=== PATIENT | female | born 1955 | race Caucasian/White ===

== ENCOUNTER 2019-12-23 10:09 | Emergency (ER) | payer MEDICARE, SELFPAY ==
--- NOTE | ~2019-12-23 | XR_ITS ---
EXAMINATION: XR chest 2V 12/23/2019 10:44 INDICATION: Cough for 10 days PROCEDURE: 2 view chest COMPARISON: No prior studies for comparison. FINDINGS: The lungs are clear. The cardiomediastinal silhouette is enlarged. There are no pleural e ffusions. There is no pneumothorax suspected. There are cholecystectomy clips. IMPRESSION: 1: NO ACUTE CARDIOPULMONARY DISEASE. Reviewed, dictated and finalized at location A.
[2019-12-23 10:16] VITALS: BP 149/64; PULSE 67; RESP 14; TEMP 36.8; O2SAT 98
--- NOTE | 2019-12-23 10:39 | ED.URI ---
HPI - URI/Sore Throat General Chief Complaint: Upper Respiratory Infection Stated Complaint: upper respiratory Time Seen by Provider: 12/23/19 10:24 Source: patient and RN notes reviewed Mode of arrival: ambulatory Limitations: no limitations History of Present Illness HPI Narrative: Patient presents today complaining of a one-week history of dry cough that has been worsening since onset, postnasal drip, intermittent chills, feeling miserable. Denies fever, shortness of breath, sore throat, ear pain, loss of taste or smell. Denies sick contacts or contact with anyone with COVID 19. MD elicited complaint: cough Related Data Home Medications Medication Instructions Recorded Confirmed atenolol 50 mg PO DAILY 03/18/19 12/23/19 esomeprazole magnesium [Nexium] 40 mg PO DAILY 03/18/19 12/23/19 insulin detemir U-100 [Levemir 60 unit SUBCUT HS 03/18/19 12/23/19 U-100 Insulin] insulin lispro [Humalog U-100 25 unit SUBCUT TID 03/18/19 12/23/19 Insulin] metformin 1,000 mg PO BID 03/18/19 12/23/19 paroxetine HCl [Paxil] 40 mg PO QAM 03/18/19 12/23/19 Allergies Allergy/AdvReac Type Severity Reaction Status Date / Time Penicillins Allergy Rash Verified 12/23/19 10:24 Review of Systems Review of Systems: Narrative: CONSTITUTIONAL: Denies body aches, fever, or sweats. +Chills EYES: Denies visual changes, redness, or discharge. ENT: Denies rhinorrhea, congestion, sore throat, or otalgia.+Postnasal drip CARDIOVASCULAR: Denies chest pain, palpitations, or edema. RESPIRATORY: Denies dyspnea. +Dry cough GASTROINTESTINAL: Denies abdominal pain, nausea, vomiting, or diarrhea. GENITOURINARY: Denies dysuria or hematuria. SKIN: Denies rash, itching, or wounds. MUSCULOSKELETAL: Denies back pain, joint pain, or myalgia. NEUROLOGIC: Denies headache, numbness, tingling, or weakness. PSYCH: Denies depression or anxiety. PMFSH Comments At time of signature, I have reviewed and agree with nursing past medical, surgical, social and family history unless otherwise noted. Please see nursing chart for further information. There is no relevant family history pertinent to the presenting complaint Exam Narrative: Exam Narrative: GENERAL: Well-appearing, well-nourished, and in no acute distress. HEAD: Normocephalic, atraumatic. EYES: EOMI. No redness or drainage. Conjunctivae normal. ENT: Mucous membranes pink and moist. Nares Mildly congested. No rhinorrhea. TMs normal bilaterally. Throat normal. Uvula midline. NECK: Normal AROM. Supple. No lymphadenopathy. CHEST: No respiratory distress. Diminished in the bilateral bases, otherwise clear. HEART: Regular rate and rhythm. No murmur appreciated. Normal peripheral pulses. EXTREMITIES: Normal range of motion. No edema. SKIN: Warm, dry, no rash. Capillary refill normal. Normal skin turgor. NEURO: No focal deficits. Alert and oriented x3. Gait steady. PSYCH: Normal affect. No signs of depression or anxiety. Course Vital Signs Vital signs: Vital Signs Temperature 98.3 F 12/23/19 10:16 Pulse Rate 67 12/23/19 10:16 Respiratory Rate 14 12/23/19 10:16 Blood Pressure 149/64 H 12/23/19 10:16 Pulse Oximetry 98 12/23/19 10:16 Temperature 98.3 F 12/23/19 10:16 Pulse Rate 67 12/23/19 10:16 Respiratory Rate 14 12/23/19 10:16 Blood Pressure 149/64 H 12/23/19 10:16 Pulse Oximetry 98 12/23/19 10:16 Reviewed. Pt has been instructed to follow up with her PCP regarding her elevated blood pressure today. MDM - URI/Sore Throat Differential Diagnosis Differential diagnosis: Likely upper respiratory infection, sinusitis, viral infection, bronchitis and other (Pneumonia) Imaging Data Radiologist's impression: ITS Impressions Chest X-Ray 12/23/19 10:46 IMPRESSION: 1: NO ACUTE CARDIOPULMONARY DISEASE. Critical Care Time Critical Care Time Critical Care Time: No Discharge Plan Discharge Clinical Impression: Bronchitis Patient Di
== END 2019-12-23 11:20 | disposition home or self-care (01) ==
PROVIDERS: Emergency Provider Nurse Practitioner
DX: J40 Bronchitis, not specified as acute or chronic (principal); I10 Essential (primary) hypertension; K21.9 Gastro-esophageal reflux disease without esophagitis; E11.9 Type 2 diabetes mellitus without complications; F41.9 Anxiety disorder, unspecified
CPT/HCPCS: 71046; 99213; G0463

== ENCOUNTER 2023-04-23 09:03 | Outpatient (CLI) | payer MEDICARE, SELFPAY ==
[2023-04-23 09:14] LABS: Basophils Absolute Auto 0.1 K/mm3 (0.0-0.1); Basophils Percent Auto 0.8 % (0.2-1.2); Eosinophils Absolute Auto 0.4 K/mm3 (0-0.3); Eosinophils Percent Auto 4.8 % (0-4.4); Hemoglobin 14.6 g/dL (12.0-15.0); Immature Granulocyte Absolute 0.03 K/mm3 (0.00-0.031); Immature Granulocyte Percent A 0.3 % (0-0.5); Lymphocytes Absolute Auto 1.41 K/mm3 (0.9-3.2); Lymphocytes Percent Auto 16.3 % (18.3-44.2); Mean Corpuscular HGB Conc 32.4 g/dl (32-36); Mean Corpuscular Hemoglobin 27.9 pg (26-34); Mean Platelet Volume 10.4 fl (7.4-10.4); Monocytes Absolute Auto 0.6 K/mm3 (0.1-0.6); Monocytes Percent Auto 7.2 % (2.6-8.5); Neutrophils Absolute Auto 6.1 K/mm3 (1.3-6.7); Neutrophils Percent Auto 70.6 % (45.5-73.1); Platelet Count Result 241 k/mm3 (150-375); Red Blood Count 5.23 M/mm3 (4.2-5.4); Red Cell Distribution Width 13.8 % (11.5-14.5); White Blood Count 8.7 K/mm3 (4.5-10.0)
[2023-04-23 11:22] LABS: Alanine Aminotransferase 36 U/L (6-35); Albumin Level 3.9 g/dL (3.5-5.1); Alkaline Phosphatase 78 U/L (38-126); Anion Gap 8 mmol/L (8-16); Aspartate Amino Transferase 44 U/L (14-36); Bilirubin,Total 0.6 mg/dL (0.2-1.3); Blood Urea Nitrogen 10 mg/dL (7-17); Calcium 9.6 mg/dL (8.4-10.2); Carbon Dioxide 30 mmol/L (22-30); Chloride 101 mmol/L (98-107); Estimated Glomerular Filt Rate > 60; Glucose 179 mg/dL (65-110); Sodium 139 mmol/L (137-145)
[2023-04-29 05:48] LABS: CA 15-3 7 U/mL (<32)
== END 2023-04-23 09:04 | disposition home or self-care (01) ==
LOC: ANHLAB 09:05
PROVIDERS: Visit Provider Internal Medicine Hematology & Oncology
DX: C50.911 Malignant neoplasm of unspecified site of right female breast (principal)
CPT/HCPCS: 36415; 80053; 85025; 86300

== ENCOUNTER 2023-08-17 10:21 | Outpatient (CLI) | payer MEDICARE, SELFPAY ==
[2023-08-17 10:38] LABS: Basophils Absolute Auto 0.1 K/mm3 (0.0-0.1); Basophils Percent Auto 0.8 % (0.2-1.2); Eosinophils Absolute Auto 0.4 K/mm3 (0-0.3); Eosinophils Percent Auto 4.1 % (0-4.4); Hematocrit 43.3 % (37.0-47.0); Hemoglobin 14.1 g/dL (12.0-15.0); Immature Granulocyte Absolute 0.03 K/mm3 (0.00-0.031); Immature Granulocyte Percent A 0.3 % (0-0.5); Lymphocytes Absolute Auto 1.55 K/mm3 (0.9-3.2); Lymphocytes Percent Auto 17.9 % (18.3-44.2); Mean Corpuscular HGB Conc 32.6 g/dl (32-36); Mean Corpuscular Hemoglobin 28.7 pg (26-34); Mean Corpuscular Volume 88.2 fl (80-100); Mean Platelet Volume 10.2 fl (7.4-10.4); Monocytes Absolute Auto 0.6 K/mm3 (0.1-0.6); Monocytes Percent Auto 6.9 % (2.6-8.5); Platelet Count Result 216 k/mm3 (150-375); Red Blood Count 4.91 M/mm3 (4.2-5.4); Red Cell Distribution Width 13.5 % (11.5-14.5); White Blood Count 8.6 K/mm3 (4.5-10.0)
[2023-08-17 16:46] LABS: Alanine Aminotransferase 27 U/L (6-35); Alkaline Phosphatase 84 U/L (38-126); Anion Gap 7 mmol/L (4-12); Aspartate Amino Transferase 41 U/L (14-36); Bilirubin,Total 0.6 mg/dL (0.2-1.3); Blood Urea Nitrogen 10 mg/dL (7-17); Calcium 9.3 mg/dL (8.4-10.2); Carbon Dioxide 27 mmol/L (22-30); Chloride 105 mmol/L (98-107); Estimated Glomerular Filt Rate > 60; Glucose 157 mg/dL (65-110); Potassium 4.1 mmol/L (3.4-5.0); Sodium 139 mmol/L (137-145)
[2023-08-18 13:53] LABS: CA 15-3 7 U/mL (<32)
== END 2023-08-17 10:22 | disposition home or self-care (01) ==
LOC: ANHLAB 10:24
PROVIDERS: Visit Provider Internal Medicine Hematology & Oncology
DX: C50.911 Malignant neoplasm of unspecified site of right female breast (principal)
CPT/HCPCS: 36415; 80053; 85025; 86300

== ENCOUNTER 2023-08-31 07:31 | Outpatient (CLI) | payer MEDICARE, SELFPAY ==
--- NOTE | ~2023-08-31 | DEXA_ITS ---
Bone Density Report Name: WILLIAM RUIZ Age: 68 Sex: Female Ethnicity: White Date of : 1955 Indication: postmenopausal; screening for osteoporosis; parental hip fracture; height loss; cancer; hysterectomy; Referring Provider: ADEOLA GALLEGOS Study: Bone densitometry was performed. Exam Date: August 31, 2023 Accession number: [id number] Bone Density: Region BMD T-score Z-score Classification AP Spine(L1-L4) 1.204 1.4 3.5 Normal Femoral Neck (Left) 0.796 -0.5 1.3 Normal Total Hip (Left) 1.008 0.5 2.0 Normal Femoral Neck (Right) 0.835 -0.1 1.7 Normal Total Hip (Right) 1.026 0.7 2.2 Normal Total Hip Mean 1.017 0.6 2.1 Normal World Health Organization criteria for BMD impression classify patients as: Normal (T-score at or above -1.0), Osteopenia (T-score between -1.0 and -2.5), or Osteoporosis (T-score at or below -2.5). 10-year Fracture Risk: FRAX not reported because: All T-scores for Spine Total, Hip Total, Femoral Neck at or above -1.0 Clinical Information Provided by Patient: Parent has had a hip fracture Has used the following medications: Vitamin D Has the following medical conditions: Cancer, Hysterectomy Patient maximum height was 65 Menopause Age: 30 No regular weight bearing exercise Drinks caffeinated beverages Onset of menses at age 10 Number of children 2 Impression: The patient has normal bone mass. The patient has risk factors, including: parental hip fracture. Discussion: BONE DENSITY IS ABOVE THE MINIMUM DESIRABLE LEVEL AT ALL SKELETAL SITES TESTED. This patient?s bone mineral density is above the minimum desirable level (T-score -1.0 or better) at all sites measured. The patient should follow a healthful lifestyle (good nutrition with adequate calcium and vitamin D, and appropriate weight-bearing exercise). Follow-Up: Consider repeating this study in 5 years or sooner if there is some new clinical indication. Reported by: REYNA on 08/31/2023 8:10:00 AM. Reviewed, dictated and finalized at location [facility]
== END 2023-08-31 07:32 | disposition home or self-care (01) ==
LOC: ANHIMG 07:35
PROVIDERS: Visit Provider Internal Medicine Hematology & Oncology
DX: M85.89 Other specified disorders of bone density and structure, multiple sites (principal); Z13.820 Encounter for screening for osteoporosis
CPT/HCPCS: 77080

== ENCOUNTER 2023-12-09 10:02 | Outpatient (CLI) | payer MEDICARE, SELFPAY ==
[2023-12-09 10:20] LABS: Basophils Absolute Auto 0.1 K/mm3 (0.0-0.1); Basophils Percent Auto 0.8 % (0.2-1.2); Eosinophils Absolute Auto 0.4 K/mm3 (0-0.3); Eosinophils Percent Auto 4.8 % (0-4.4); Hematocrit 45.4 % (37.0-47.0); Hemoglobin 14.3 g/dL (12.0-15.0); Immature Granulocyte Absolute 0.03 K/mm3 (0.00-0.031); Immature Granulocyte Percent A 0.4 % (0-0.5); Lymphocytes Absolute Auto 1.95 K/mm3 (0.9-3.2); Lymphocytes Percent Auto 23.5 % (18.3-44.2); Mean Corpuscular HGB Conc 31.5 g/dl (32-36); Mean Corpuscular Volume 88.8 fl (80-100); Mean Platelet Volume 10.8 fl (7.4-10.4); Monocytes Absolute Auto 0.6 K/mm3 (0.1-0.6); Monocytes Percent Auto 7.2 % (2.6-8.5); Neutrophils Absolute Auto 5.2 K/mm3 (1.3-6.7); Neutrophils Percent Auto 63.3 % (45.5-73.1); Platelet Count Result 212 k/mm3 (150-375); Red Blood Count 5.11 M/mm3 (4.2-5.4); Red Cell Distribution Width 13.5 % (11.5-14.5); White Blood Count 8.3 K/mm3 (4.5-10.0)
[2023-12-09 12:50] LABS: Alanine Aminotransferase 31 U/L (6-35); Alkaline Phosphatase 80 U/L (38-126); Anion Gap 7 mmol/L (4-12); Aspartate Amino Transferase 42 U/L (14-36); Bilirubin,Total 0.5 mg/dL (0.2-1.3); Blood Urea Nitrogen 20 mg/dL (7-17); Calcium 8.9 mg/dL (8.4-10.2); Carbon Dioxide 32 mmol/L (22-30); Chloride 98 mmol/L (98-107); Estimated Glomerular Filt Rate 55; Glucose 153 mg/dL (65-110); Potassium 4.5 mmol/L (3.4-5.0); Sodium 137 mmol/L (137-145)
[2023-12-11 06:08] LABS: CA 15-3 6 U/mL (<32)
== END 2023-12-09 10:03 | disposition home or self-care (01) ==
LOC: ANHLAB 10:06
PROVIDERS: Visit Provider Internal Medicine Hematology & Oncology
DX: C50.911 Malignant neoplasm of unspecified site of right female breast (principal)
CPT/HCPCS: 36415; 80053; 85025; 86300

== ENCOUNTER 2024-05-18 09:06 | Outpatient (CLI) | payer MEDICARE, SELFPAY ==
--- OUTSIDE RECORDS SUMMARY | 2024-05-18 09:11 | XMS_ITS | Encounter Summary ---
Author Organization [facility] Address [address] [place] [address] Care Team Providers Care Cellar Worker Name Role Phone Kerwin Quiroga MD Primary Care Provider +1- [phone] Encounter Details Date Type Department Care Team (Late st Contact Info) Description 10/16/2003 Outpatient Historical [facility] INTERNISTS Jeremías Farias MD NO ADDRESS ON FILE Social History Tobacco Use Types Packs/Day Years Used Date Smoking Tobacco: Never Assessed Comments Unknown Sex and Gender Information Value Date Recorded Sex Assigned at Not on file Legal Sex Female 4:29 AM CATTLE DIPPER Gender Identity Not on file Sexual Orientation Not on file documented as of this encounter Plan of Treatment Upcoming Encounters Date Type Department Care Team (Late st Contact Info) Description 05/20/2024 9:30 AM CATTLE DIPPER Office Visit [facility] Internal Medicine Phuong Denzel [address] [place] [address] [place] [address] [facility] [place] [address] 05/24/2024 11:45 AM CATTLE DIPPER Office Visit [facility] Oncology and Hematology - Par[address] [facility] [address] [place] [address] Nelson Cazares MD [address] [facility] [address] [place] [address] 06/07/2024 12:00 PM CDT Appointment [facility] [address] [place] [address] [place] [address] [place] [phone] 06/07/2024 1:05 PM CDT Office Visit [facility] Breast Surgery Jazmin Couch [address] [place] [address] [place] [address] [place] [address] 06/20/2024 8:30 AM CDT Office Visit [facility] Internal Medicine Phuong Denzel [address] [facility] [address] [place] [address] [place] [address] [place] [address] 06/20/2024 11:15 AM CDT Office Visit [facility] Endocrinology [address] [place] [address] Shanice Llamas MD [address] [place] [address] 12/08/2024 11:00 AM CDT Office Visit [facility] Heart and Vascular - [facility] [address] [place] [address] Nam Coto MD [address] [facility] [address] [place] [address] documented as of this encounter Visit Diagnoses Not on filedocumented in this encounter Additional Health Concerns Infection Onset Date Last Indicated Resolved Time R/O COVID-19 12/28/2019 12/28/2019 12/30/2019 5:45 AM CDT COVID-19 12/28/2019 12/28/2019 01/27/2020 1:16 AM CDT documented as of this encounter Care Teams Cellar Worker Relationship Specialty [place] [address] [facility] [address] [place] [address] PCP - General Internal Medicine 02/18/21 documented as of this encounter
--- OUTSIDE RECORDS SUMMARY | 2024-05-18 09:11 | XMS_ITS | Encounter Summary ---
Author Organization [facility] Address [address] [place] [address] Care Team Providers Care Panel Fitter Name Role Phone Kerwin Quiroga MD Primary Care Provider +1- [phone] Encounter Details Date Type Department Care Team (Late st Contact Info) Description 12/13/2003 Outpatient Historical [facility] Boy Kaufman MD [address] [place] [address] ESOPHAGITIS, UNSPECIFIED (Primary Dx) Social History Tobacco Use Types Packs/Day Years Used Date Smoking Tobacco: Never Assessed Comments Unknown Sex and Gender Information Value Date Recorded Sex Assigned at Not on file Legal Sex Female 4:29 AM METAL MACHINE SETTER Gender Identity Not on file Sexual Orientation Not on file documented as of this encounter Plan of Treatment Upcoming Encounters Date Type Department Care Team (Late st Contact Info) Description 05/20/2024 9:30 AM METAL MACHINE SETTER Office Visit [facility] Internal Medicine Phuong Mahoney [address] [facility] [address] [place] [address] [place] [address] [address] [facility] [address] [place] [address] 05/24/2024 11:45 AM METAL MACHINE SETTER Office Visit [facility] Oncology and Hematology - [address] [place] [address] Nelson Cazares MD [address] [facility] [address] [place] [address] 06/07/2024 12:00 PM CDT Appointment [facility] [address] [place] [address] [place] [address] [place] [phone] 06/07/2024 1:05 PM CDT Office Visit [facility] Breast Surgery Jazmin Couch [address] [place] [address] [place] [address] [place] [address] 06/20/2024 8:30 AM CDT Office Visit [facility] Internal Medicine Phuong Mahoney [address] [place] [address] [place] [address] [place] [address] 06/20/2024 11:15 AM CDT Office Visit [facility] Endocrinology [address] [place] [address] Shanice Llamas MD [address] [facility] [address] [place] [address] 12/08/2024 11:00 AM CDT Office Visit [facility] Heart and Vascular - [facility] [address] [place] [address] Nam Coto MD [address] [facility] [address] [place] [address] documented as of this encounter Visit Diagnoses Diagnosis Esophagitis, unspecified- Primary documented in this encounter Additional Health Concerns Infection Onset Date Last Indicated Resolved Time R/O COVID-19 12/28/2019 12/28/2019 12/30/2019 5:45 AM CDT COVID-19 12/28/2019 12/28/2019 01/27/2020 1:16 AM CDT documented as of this encounter Care Teams Panel Fitter Relationship Specialty [place] [address] [facility] [address] [place] [phone] PCP - General Internal Medicine 02/18/21 documented as of this encounter
--- OUTSIDE RECORDS SUMMARY | 2024-05-18 09:11 | XMS_ITS | Encounter Summary ---
Author Organization [facility] Address [address] [place] [address] Care Team Providers Care Automotive Technology Instructor Name Role Phone Kerwin Quiroga MD Primary Care Provider +1- [phone] Reason for Visit * Reason Onset Date Comments Medication Refill 05/06/2024 Encounter Details Date Type Department Care Team (Late st Contact Info) Description 05/06/2024 Refill [facility] Endocrinology [address] [place] [address] Shanice Llamas MD [address] [facility] [address] [place] [address] Social History Tobacco Use Types Packs/Day Years Used Date Smoking Tobacco: Never Passive Smoke Exposure: Never Smokeless Tobacco: Never Alcohol Use Standard Drinks/Week Comments Yes 0 (1 standard drink = 0.6 oz pur e alcohol) 0-1/MONTH Feeling Safe Answer Date Recorded Within the last year, have y ou been afraid of your partner or ex-partner? No 05/28/2023 Emotionally Abused Not on file 05/28/2023 Within the last year, have y ou been kicked, hit, slapped, or otherwise physically hurt by your partner or ex-partner? No 05/28/2023 Sexually Abused Not on file 05/28/2023 Financial Resource Strain Answer Date R ecorded How hard is it for you to pa y for the very basics like food, housing, medical care, and heating? Not hard at all 05/28/2022 Food Insecurity Answer Date Recorded In the past 12 months, have you worried that your food would run out before you had money to buy more? Never true 05/28/2022 In the past 12 months, did y ou run out of food and didn't have money to buy more? Never true 05/28/2022 Transportation Needs Answer Date Record ed In the past 12 months, has l ack of transportation kept you from medical appointments or from getting medications? No 05/28/2022 Lack of Transportation (Non-Medical) Not on file 05/28/2022 Feeling Safe Answer Date Recorded Are you in a relationship wi th someone who hurts you emotionally and/or physically? No 11/10/2022 Comments No Sex and Gender Information Value Date Recorded Sex Assigned at Not on file Legal Sex Female 4:29 AM CONTRACT ASSISTANT Gender Identity Not on file Sexual Orientation Not on file Occupation Industry Job Start Date Job End Date Not on file Not on file Not on file Not on file documented as of this encounter Plan of Treatment Upcoming Encounters Date Type Department Care Team (Late st Contact Info) Description 05/20/2024 9:30 AM CONTRACT ASSISTANT Office Visit [facility] Internal Medicine Phuong Denzel [address] [facility] [address] [place] [address] [place] [address] [address] [facility] [address] [place] [address] 05/24/2024 11:45 AM CONTRACT ASSISTANT Office Visit [facility] Oncology and Hematology - [address] [facility] [address] [place] [address] Nelson Cazares MD [address] [facility] [address] [place] [address] 06/07/2024 12:00 PM CDT Appointment [facility] [address] [place] [address] [place] [address] [place] [address] 06/07/2024 1:05 PM CDT Office Visit [facility] Breast Surgery [place] [address] [place] [address] [place] [address] [place] [address] 06/20/2024 8:30 AM CDT Office Visit [facility] Internal Medicine Phuong Denzel [address] [place] [address] [place] [address] [place] [address] 06/20/2024 11:15 AM CDT Office Visit [facility] Endocrinology [address] [place] [address] Shanice Llamas MD [address] [facility] [address] [address] [address] [place] [address] 12/08/2024 11:00 AM CDT Office Visit [facility] [address] [place] [address] Nam Coto MD [address] [place] [address] documented as of this encounter Visit Diagnoses Not on filedocumented in this encounter Care Teams Automotive Technology Instructor Relationship Specialty Start [place] [address] [place] [address] PCP - General Internal Medicine 02/18/21 documented as of this encounter
--- OUTSIDE RECORDS SUMMARY | 2024-05-18 09:11 | XMS_ITS | Encounter Summary ---
Author Organization [facility] Address [address] [place] [address] Care Team Providers Care Transmission Technician Name Role Phone Kerwin Quiroga MD Primary Care Provider [phone]- [phone] Encounter Details Date Type Department Care Team (Late st Contact Info) Description 08/01/2003 Outpatient Historical [facility] MRI DEPT Jeremías Farias MD NO ADDRESS ON FILE CHRONIC SINUSITIS NOS (Primary Dx) Social History Tobacco Use Types Packs/Day Years Used Date Smoking Tobacco: Never Assessed Comments Unknown Sex and Gender Information Value Date Recorded Sex Assigned at Not on file Legal Sex Female 4:29 AM DIETITIAN CHIEF Gender Identity Not on file Sexual Orientation Not on file documented as of this encounter Plan of Treatment Upcoming Encounters Date Type Department Care Team (Late st Contact Info) Description 05/20/2024 9:30 AM DIETITIAN CHIEF Office Visit [facility] Internal Medicine Phuong Mahoney [address] [place] [address] [place] [address] [facility] [address] [facility] [place] [address] 05/24/2024 11:45 AM DIETITIAN CHIEF Office Visit [facility] Oncology and Hematology - [address] [facility] [address] [place] [address] Nelson Cazares MD [address] [facility] [address] [place] [address] 06/07/2024 12:00 PM CDT Appointment [facility] [address] [place] [address] [place] [address] [place] [id number] 06/07/2024 1:05 PM CDT Office Visit [facility] Breast Surgery Jazmin Couch [address] [place] [address] [place] [address] [place] [address] 06/20/2024 8:30 AM CDT Office Visit [facility] Internal Medicine Phuong Denzel [address] [place] [address] [place] [address] [place] [address] 06/20/2024 11:15 AM CDT Office Visit [facility] Endocrinology [address] [place] [address] Shanice Llamas MD [address] [place] [address] 12/08/2024 11:00 AM CDT Office Visit [facility] [address] [address] [place] [address] Nam Coto MD [address] [place] [address] documented as of this encounter Visit Diagnoses Diagnosis Unspecified sinusitis (chronic)- Primary documented in this encounter Additional Health Concerns Infection Onset Date Last Indicated Resolved Time R/O COVID-19 12/28/2019 12/28/2019 12/30/2019 5:45 AM CDT COVID-19 12/28/2019 12/28/2019 01/27/2020 1:16 AM CDT documented as of this encounter Care Teams Transmission Technician Relationship Specialty [place] [address] [address] [address] [place] [address] PCP - General Internal Medicine 02/18/21 documented as of this encounter
--- OUTSIDE RECORDS SUMMARY | 2024-05-18 09:11 | XMS_ITS | Encounter Summary ---
Author Organization [facility] Address 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 Gender Identity Not on file Sexual Orientation Not on file documented as of this encounter Plan of Treatment Upcoming Encounters Date Type Department Care Team (Late st Contact Info) Description 05/20/2024 9:30 AM 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 Office Visit [facility] Internal Medicine Phuong Mahoney [address] [facility] [facility] [address] [place] [address] [place] [address] [address] [facility] [address] [facility] [place] [address] 05/24/2024 11:45 AM 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 Office Visit [facility] Oncology and Hematology - [address] [place] [address] Nelson Cazares MD [address] [facility] [address] [place] [address] 06/07/2024 12:00 PM CDT Appointment [facility] [address] [place] [address] [place] [address] [place] [phone] 06/07/2024 1:05 PM CDT Office Visit [facility] Breast Surgery Jazmin Couch [address] [place] [address] [place] [address] [place] [address] 06/20/2024 8:30 AM CDT Office Visit [facility] Internal Medicine Phuong Denzel [address] [facility] [address] [place] [address] [place] [address] [place] [address] 06/20/2024 11:15 AM CDT Office Visit [facility] Endocrinology [address] [place] [address] Shanice Llamas MD [address] [facility] [address] [place] [address] 12/08/2024 11:00 AM CDT Office Visit [facility] Heart and Vascular - [facility] [address] [place] [address] Nam Coto MD [address] [facility] [address] [place] [address] documented as of this encounter Visit Diagnoses Diagnosis Cough- Primary documented in this encounter Additional Health Concerns Infection Onset Date Last Indicated Resolved Time R/O COVID-19 12/28/2019 12/28/2019 12/30/2019 5:45 AM CDT COVID-19 12/28/2019 12/28/2019 01/27/2020 1:16 AM CDT documented as of this encounter Care Teams Account Installation Specialist Relationship Specialty [place] [address] [facility] [address] [place] [address] PCP - General Internal Medicine 02/18/21 documented as of this encounter
--- OUTSIDE RECORDS SUMMARY | 2024-05-18 09:11 | XMS_ITS | Clinical Summary ---
Author Organization [facility] Address [address] [place] [address] Phone Care Team Providers Care Restaurant Supervisor Name Role Phone Kerwin Quiroga MD Primary Care Provider [phone] Allergies Active Allergy Reactions Criticality Noted Date Comments Lisinopril Cough Low 05/17/2010 Penicillins Rash Low 09/16/2006 Penicillins Rash Low 06/09/2022 Semaglutide Abdominal Pain,Nausea and Vomiting Low 07/21/2018 Medications lancets (One Touch Delica) 33 gauge 4 times daily. 400 Each 1 05/14/19 18 Active albuterol sulfate 90 mcg/Actuation inhaler INHALE 2 PUFFS PO Q 4-6 H NEEDED FOR SHORTNESS OF BREATH OR WHEEZING 8.5 Gram 3 04/19/19 22 Active minocycline (MINOCIN) 100 mg capsule Take 100 mg by mouth daily. 06/12/19 22 Active cholecalciferol, Vitamin D3, 125 mcg (5,000 unit) Capsule Take 50,000 Units by mouth. Active Insulin Chappells, Disposable, (BD Ultra-Fine Short Pen Needle) 31 gauge x 5/16 Needle USE FOUR TIMES DAILY BEFORE MEALS AND AT BEDTIME 400 Each 3 05/25/19 24 Active esomeprazole (NexIUM) 40 mg Capsule, Delayed Release(E.C.)Annabelle cations:Gastroeso phageal reflux disease without esophagitis take 1 capsule by mouth every day as needed 100 Capsule 2 08/12/19 24 Active baclofen (LIORESAL) 10 mg tabletIndications :Back spasm TAKE 1 TABLET(10 MG) BY MOUTH THREE TIMES DAILY NEEDED FOR PAIN 60 Tablet 08/21/19 24 Active olmesartan (BENICAR) 20 mg tablet take 1 tablet by mouth daily 100 Tablet 3 09/01/19 24 Active simvastatin (ZOCOR) 40 mg tabletIndications :Mixed hyperlipidemia TAKE 1 TABLET(40 MG) BY MOUTH DAILY 100 Tablet 3 09/01/19 24 Active pantoprazole (PROTONIX) 40 mg Tablet, Delayed Release (E.C.)Indications :Gastroesophageal reflux disease without esophagitis Take 1 Tablet (40 mg) by mouth daily. 90 Tablet 3 09/30/19 24 Active montelukast (SINGULAIR) 10 mg tablet TAKE 1 TABLET(10 MG) BY MOUTH DAILY 90 Tablet 3 11/25/19 24 Active metFORMIN (GLUCOPHAGE XR) 500 mg Extended Release 24 hour tablet TAKE 2 TABLETS(1000 MG) BY MOUTH TWICE DAILY WITH MEALS 360 Tablet 1 12/11/19 24 Active insulin lispro (HumaLOG,ADMELOG) 100 unit/mL pen syringe INJECT 11 UNITS UNDER THE SKIN WITH BREAKFAST, 20 UNITS WITH LUNCH, 17 UNITS WITH DINNER, PLUS SLIDING SCALE, MAX 100UNITS PER DAY 90 mL 1 12/16/19 24 Active atenoloL (TENORMIN) 50 mg tablet TAKE 1 TABLET(50 MG) BY MOUTH DAILY 90 Tablet 3 01/11/20 24 Active insulin glargine (Lantus Solostar U-100 Insulin) 100 unit/mL pen syringe 45 units SQ qhs. 45 mL 1 02/10/20 24 Active PARoxetine HCl (PAXIL) 40 mg tablet TAKE 1 TABLET(40 MG) BY MOUTH DAILY 100 Tablet 1 03/07/20 24 Active anastrozole (ARIMIDEX) 1 mg tablet TAKE 1 TABLET(1 MG) BY MOUTH DAILY 90 Tablet 4 03/10/20 24 Active famotidine (PEPCID) 40 mg tablet TAKE 1 TABLET(40 MG) BY MOUTH DAILY AT BEDTIME 90 Tablet 03/11/20 24 Active Trulicity 0.75 mg/0.5 mL injection ADMINISTER 0.75 MG UNDER THE SKIN EVERY 7 DAYS 6 mL 1 04/29/19 25 Active Trulicity 0.75 mg/0.5 mL injection ADMINISTER 0.75 MG UNDER THE SKIN EVERY 7 DAYS 6 mL 1 11/09/19 24 2024 Discontinued Active Problems Patient Care Coordination No te Formatting of this note migh t be different from the original. Hemstitcher - Dr. 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 Grade 2 sprain of medial collateral ligament of knee 07/04/2016 H/O total knee replacement, right 07/04/2016 Rosacea 02/10/2016 Type 2 diabetes mellitus without complication Mixed hyperlipidemia 12/26/2014 Low back pain 11/18/2014 Palpitations 03/01/2013 S/P knee replacement 03/01/2013 Essential hypertension, benign 09/16/2006 Esophageal reflux 09/16/2006 Allergic rhinitis due to pollen 09/16/2006 Resolved Problems Problem Noted Date Diagnosed Date Resolved Date Severe obesity (BMI 35.0-39. 9) with comorbidity 04/11/2015 03/12/2020 Type 2 diabetes, controlled, with renal manifestation 04/11/2015 11/12/2018 CKD (chronic kidney disease) stage 2, GFR 60-89 ml/min 12/27/2014 11/12/2018 Leukocytosis 03/02/2013 06/07/2013 Type II or unspecified type diabetes mellitus without mention of complication, uncontrolled 08/16/2010 03/02/2015 Hyperlipidemia 05/17/2010 12/26/2014 Acute maxillary sinusitis 03/08/2007 Type II or unspecified type diabetes mellitus without mention of complication, not stated as uncontrolled 09/16/2006 08/16/2010 Encounters Date Type Department Care Team Description 05/06/2024 Refill [facility] Endocrinology [address] [place] [address] Shanice Llamas MD 05/02/2024 Telephone [facility] Endocrinology [address] [place] [address] Shanice Llamas MD Needs Form Or Letter Filled Out (Trulicity) 04/29/2024 Refill [facility] Endocrinology [address] [place] [address] Shanice Llamas MD 03/10/2024 [facility] Gastroenterology [facility] [address] [place] [address] Tamy Rasheed PA-C 03/10/2024 [facility] Oncology and Hematology [address] [place] [address] Nelson Cazares MD 03/05/2024 [facility] Internal Medicine [facility] [address] [address] [place] [address] Kerwin Quiroga MD 02/18/2024 2:15 PM PRINTED CIRCUIT BOARD ASSEMBLY REPAIRER Office Visit [facility] Orthopedic Surgery - [address] [place] [address] Fabio Gamez MD Numbness and tingling in left hand (Primary Dx); Carpal tunnel syndrome of left wrist 02/18/2024 1:00 PM PRINTED CIRCUIT BOARD ASSEMBLY REPAIRER Procedure visit [facility] Physical Medicine and Rehabilitation - [place] [id number] [place] [address] [place] [address] Almas Gallegos Jr., MD Left carpal tunnel syndrome (Primary Dx); Numbness and tingling in left hand from Last 3 Months Immunizations Immunization Administration Dates Next Due (ADACEL/BOOSTRIX)(10 YR UP) TDAP VACCINE, 0.5ML, IM 05/17/2010 (AREXVY)(60 YR UP) RSV, DOM MBINANT, PROTEIN SUBUNIT RSVPREF, ADJUVANT RECONSTITUTED, 0.5 ML, PF 01/28/2023 (PFIZER)(12 YR UP) COVID-19 VACCINE - EMERGENCY USE AUTHORIZATION, MRNA, [id number](PF) 30 MCG/0.3 ML IM SUSP 01/28/2021,06/26/2020,05/29/2020 (PNEUMOVAX 23)(50 YRS UP) PN EUMOCOCCAL POLYSACCHARIDE (PPV23) 0.5 ML, IM 04/12/2012,07/17/2011,12/06/2008 (PREVNAR 13)(6 WKS UP) PNEUM OCOCCAL CONJUGATE (PCV13) 0.5 ML, IM 01/21/2018 (SHINGRIX)(50 YRS UP) ZOSTER VACCINE RECOMBINANT, 0.5 ML, IM 06/24/2018,06/24/2018,03/09/2018 INFLUENZA VACCINE HIGH DOSE QUADRIVALENT 65 YR UP PF IM 01/14/2023,01/11/2022,12/07/2019 INFLUENZA VACCINE QUADRIVALE NT 6 MOS UP PF IM 01/14/2018 Influenza Seasonal Unspecifi ed Formulation IM 12/28/2020,11/24/2014,01/11/2010 Influenza Vaccine High Dose 65+ Yrs IM 9 Influenza Vaccine Quad Split 3+ Yrs Im 7 Influenza Vaccine Split 3+ Yrs IM 11/12/2012 Influenza Vaccine Split 3+ Yrs PF IM 05/2015,01/03/2014,01/23/2012,11/19 Family History Medical History Relation Name Comments Hypertension Father Other Father glaucoma Cancer Mother Diabetes Mother Emphysema Mother Heart Disease Mother Heart Failure Mother Hypertension Mother Colon Cancer Paternal Grandfather Asthma Neg Hx Bronchitis Neg Hx Lung Cancer Neg Hx Mesothelioma Neg Hx Relation Name Status Comments Father Alive Mother Paternal Grandfather Social History Tobacco Use Types Packs/Day Years Used Date Smoking Tobacco: Never Passive Smoke Exposure: Never Smokeless Tobacco: Never Tobacco Cessation:Counseling Given: Not Answered Alcohol Use Standard Drinks/Week Comments Yes 0 [...] on file Legal Sex Female 4:29 AM PRINTED CIRCUIT BOARD ASSEMBLY REPAIRER Gender Identity Not on file Sexual Orientation Not on file Occupation Industry Job Start Date Job End Date Not on file Not on file Not on file Not on file Last Filed Vital Signs Vital Sign Reading Time Taken Comments Blood Pressure 120/70 02/18/2024 12:53 PM PRINTED CIRCUIT BOARD ASSEMBLY REPAIRER Pulse 75 12/30/2023 11:29 AM CDT Temperature 36.4 C (97.5 F) 12/30/2023 11:29 AM CDT Respiratory Rate 18 12/30/2023 11:29 AM CDT Oxygen Saturation 96% 12/30/2023 11:29 AM CDT Inhaled Oxygen Concentration - - Weight 92.5 kg (204 lb) 02/18/2024 12:53 PM PRINTED CIRCUIT BOARD ASSEMBLY REPAIRER Height 162.6 cm (5' 4 ) 02/18/2024 12:53 PM PRINTED CIRCUIT BOARD ASSEMBLY REPAIRER Body Mass Index 35.02 02/18/2024 12:53 PM PRINTED CIRCUIT BOARD ASSEMBLY REPAIRER Plan of Treatment Upcoming Encounters Date Type Department Care Team (Late st Contact Info) Description 05/20/2024 9:30 AM PRINTED CIRCUIT BOARD ASSEMBLY REPAIRER Office Visit [facility] Internal Medicine [place] [address] [place] [phone] [place] [address] [place] [phone] 05/24/2024 11:45 AM PRINTED CIRCUIT BOARD ASSEMBLY REPAIRER Office Visit [facility] Oncology and Hematology - [place] [address] [place] [address] Nelson Cazares MD [address] [facility] [address] [facility] [facility] [address] [place] [address] 06/07/2024 12:00 PM CDT Appointment [facility] [place] [address] [place] [phone] [place] [address] [place] [address] 06/07/2024 1:05 PM CDT Office Visit [facility] Breast Surgery [place] [address] [facility] [address] [place] [address] [place] [address] [place] [address] 06/20/2024 8:30 AM CDT Office Visit [facility] Internal Medicine [place] [address] [place] [address] [place] [address] [place] [address] 06/20/2024 11:15 AM CDT Office Visit [facility] Endocrinology [address] [place] [address] Shanice Llamas MD [address] [place] [address] 12/08/2024 11:00 AM CDT Office Visit [facility] Heart and Vascular - [facility] [address] [place] [address] Nam Coto MD [address] [address] [place] [address] Health Maintenance Due Date Last Done Comments FIT-DNA Q 3 years 1998 FIT/FOBT Q 1 year 1998 Flex Sig/CT Colonography Q 5 years 1998 DTAP/TDAP/TD VACCINES (2 - T d or Tdap) 05/17/2020 05/17/2010 PNEUMOCOCCAL VACCINE 65+ YEA RS (3 of 3 - PCV20 or PCV21) 01/21/2023 01/21/2018, 04/12/2012, 07/17/2011, Additional history exists DIABETES ANNUAL RETINAL EXAM 05/09/202312/2022, 01/02/2017, 01/02/2017, Additional history exists DIABETES MICROALBUMIN ANNUAL SCREEN 05/31/2023 05/30/2022, 09/13/2021, 06/20/2020, Additional history exists INFLUENZA VACCINE (#1) 2023 , 01/11/2022, 12/28/2020, Additional history exists COVID-19 Vaccine (2023-2 5 season) 2023 01/28/2021, 06/26/2020, 05/29/2020 BREAST CANCER SCREENING 05/27/2024 05/28/19 24, 09/04/2022, 02/18/2021, Additional history exists DIABETES HBA1C Q 6 MONTHS 06/14/20242023, 06/18/2023, 03/20/2023, Additional history exists LDL CHOLESTEROL ANNUAL 06/17/2024 4, 05/30/2022, 05/28/2021, Additional history exists Traditional Medicare (ACO) A nnual Wellness Visit 06/18/2024 06/18/2023, 05/28/2022, 05/28/2021, Additional history exists DIABETES ANNUAL FOOT EXAM 12/15/20242023, 05/25/2023, 03/20/2023, Additional history exists DIABETES: A1C (Auto Order) 12/15/202412/15, 06/18/2023, 03/20/2023, Additional history exists COLORECTAL SCREENING 12/12/2026 12/12/2021, 12/12/2021, 08/26/2018, Additional history exists Colorectal Cancer Screening 12/12/2026 ZOSTER VACCINE Completed 06/24/2018, 05/29, 03/09/2018 RSV VACCINE (60+ or ) Completed 01/28/2023 OSTEOPOROSIS SCREENING Completed 08/31/2023 Medical Devices Implanted Type Area Farm Advisor Device Identifier Shelf Expiration Date Model / Serial / Lot Cement Tyner G-Hv 40g [id number] - [id number] Implanted:Qty: 1 on 03/01/2013 by Jeb Lamb MD at [facility] Cement Right: Knee [employer] 11/28/2015 [id number] / / [id number] Skin Care Technician Clip Surgiclip Ii Srini 9.75in [id number] - [id number] Implanted:Qty: 1 on 10/31/2022 by Naa Sheffield MD at [facility] Right: Axilla [employer] - [employer]EN 04/29/2027 [id number] / / [id number] Patella 3peg Series A [id number] - [id number] Implanted:Qty: 1 on 03/01/2013 by Jeb Lamb MD at [facility] Knee Right: Knee [employer] 12/27/2017 [id number] / / [id number] Comp Fem Vngrd Cr Intrlk Rt 62.5mm [id number] - [id number] Implanted:Qty: 1 on 03/01/2013 by Jeb Lamb MD at [facility] Knee Right: Knee [employer] 07/27/2022 [id number] / / [id number] Comp Tib Cocr Finned 67mm [id number] - [id number] Implanted:Qty: 1 on 03/01/2013 by Jeb Lamb MD at [facility] Knee Right: Knee [employer] 01/27/2023 [id number] / / [id number] Brng Tib Vngrd Epoly Cr [id number] - [id number] Implanted:Qty: 1 on 03/01/2013 by Jeb Lamb MD at [facility] Knee [employer] 08/27/2017 [id number] / / [id number] Description:EPOLY BEARING IS NOT PART OF TOTAL KNEE CAP PRICING,WILL CHARGED SEPARATELY. Procedures Procedure Name Priority Date/Time Associated Diagnosis Comments HEMOGLOBIN A1C Routine 12/16/2023 11:13 AM CDT Type 2 diabetes mellitus with hyperglycemia, with long-term current use of insulin (CMS/HCC) LIPID PANEL Routine 06/18/2023 10:28 AM CDT Mixed hyperlipidemia MAMMO 3D PING DIAGNOSTIC BILAT W OR WO CAD Routine 05/28/2023 8:49 AM PRINTED CIRCUIT BOARD ASSEMBLY REPAIRER Malignant neoplasm of upper-inner quadrant of right breast in female, estrogen receptor positive ([facility]/HCC) MICROALBUMIN/CREATI NINE RATIO, RANDOM UR Routine 05/30/2022 9:28 AM PRINTED CIRCUIT BOARD ASSEMBLY REPAIRER COLONOSCOPY REPORT 12/12/2021 10 :33 AM CDT DIABETES EYE EXAM Routine 01/02/2017 from Last 3 Months or Most Recently Relevant to Health Maintenance Results * (ABNORMAL) HEMOGLOBIN A1C (12/16/2023 11:13 AM CDT) HEMOGLOBIN A1C 7.5(H) <5.7 % of total Hgb [facility] Comment: For someone without known diabetes, a hemoglobin A1c value of 6.5% or greater indicates that they may have diabetes and this should be confirmed with a follow-up test. For someone with known diabetes, a value <7% indicates that their diabetes is well controlled and a value greater than or equal to 7% indicates suboptimal control. A1c targets should be individualized based on duration of diabetes, age, comorbid conditions, and other considerations. Currently, no consensus exists regarding use of hemoglobin A1c for diagnosis of diabetes for children. ESTIMATED AVERAGE GLUCOSE (MG/DL) 169 mg/dL Node ManagementRebecca Hinojosa ESTIMATED AVERAGE GLUCOSE (MMOL/L) 9.3 mmol/L [facility] HoldingsOmarRebecca froy Hinojosa Comment: This test was performed on the Janet tyrone c503 platform. Effective 06/15/23, a change in test platforms from the Zambrano Service Greeter to the Janet tyrone c503 may have shifted HbA1c results compared to historical results. Based on laboratory validation testing conducted at [facility], the Janet platform relative to the Zambrano platform had an average increase in HbA1c value of < or = 0.3%. This difference is within accepted variability established by the National Glycohemoglobin Standardization Program. Note that not all individuals will have had a shift in their results and direct comparisons between historical and current results for testing conducted on different platforms is not recommended. Test Performed at: [facility] [place] [address] [address] [place] [address] Janisugo Kajal Alaniz Blood 12/16/2023 11:1 3 AM CDT 12/16/2023 11:14 AM CDT us Shanice Llamas MD CHEMISTRY ORDERABLES Final Re sult [facility] [phone] [place] [address] [address] [place] [id number] * (ABNORMAL) LIPID PANEL (06/18/2023 10:28 AM CDT) CHOLESTEROL 159 <200 mg/dL [facility] Alluring LogicRebecca mcduffie Ashish HDL 48(L) > OR = 50 mg/dL [facility] Global HoldingsRebecca Hinojosa TRIGLYCERIDE 118 <150 mg/dL [facility] Global HoldingsRebecca froy Hinojosa LDL CALCULATED 90 mg/dL (calc) Node ManagementRebecca mcduffie Ashish Comment: Reference range: <100 Desirable range <100 mg/dL for primary prevention; <70 mg/dL for patients with CHD or diabetic patients with > or = 2 CHD risk factors. LDL-C is now calculated using the Alfonso calculation, which is a validated novel method providing better accuracy than the Friedewald equation in the estimation of LDL-C. Ruiz PATRICK et al. CESAR. 2013;310(19): 8225-1560 (http://education.Musations/faq/AHY300) CHOL/HDL RATIO 3.3 <5.0 (calc) [facility] HoldingsKierra froy Hinojosa TOTAL NON-HDL CHOL(LDL+VLDL) 111 <130 mg/dL (calc) [facility] HoldingsKierra Hinojosa Comment: For patients with diabetes plus 1 major ASCVD risk factor, treating to a non-HDL-C goal of <100 mg/dL (LDL-C of <70 mg/dL) is considered a therapeutic option. FASTING:YES FASTING: YES Test Performed at: [place] [address] [address] [place] [address] Jj Rdz Vo Blood 06/18/2023 10:2 8 AM CDT 06/18/2023 10:30 AM CDT us Kerwin Quiroga MD CHEMISTRY ORDERABLES Final Result [facility] [phone] [place] [address] [address] [place] [address] * MAMMO DIAG BILAT 3D PING W OR WO CAD (05/28/2023 8:49 AM PRINTED CIRCUIT BOARD ASSEMBLY REPAIRER) Anatomical Region Laterality Modality Breast Bilateral Mammography 05/28/2023 8:49 AM PRINTED CIRCUIT BOARD ASSEMBLY REPAIRER Impressions 05/28/2023 9:18 AM PRINTED CIRCUIT BOARD ASSEMBLY REPAIRER IMPRESSION: 1. No concerning developing abnormality identified. OVERALL FINAL ASSESSMENT: BI-RADS CATEGORY 2 - Benign findings. RECOMMENDATION: 1. Recommend annual mammography. Narrative 05/28/2023 9:18 AM PRINTED CIRCUIT BOARD ASSEMBLY REPAIRER BILATERAL DIAGNOSTIC DIGITAL MAMMOGRAM WITH 3D TOMOSYNTHESIS AND CAD DATE: 05/28/2023 8:49 AM DICTATION LOCATION: [place] HISTORY: Personal history of right-sided breast cancer treated with lumpectomy. Yearly exam. TECHNIQUE: Full field digital diagnostic mammograms of both breasts were obtained with 2D and 3D acquisitions. CAD was utilized. COMPARISON: Comparison made to studies dating back to 01/25/2019. BREAST COMPOSITION: There are scattered areas of fibroglandular density. FINDINGS: Mammographic changes consistent with breast conservation therapy within the right breast. No dominant masses, suspicious calcifications, parenchymal asymmetry or areas of architectural distortion are identified in either breast. The computer aided detection system was utilized. Procedure Note Skyles, Reji K, MD - 05/28/2023 BILATERAL DIAGNOSTIC DIGITAL MAMMOGRAM WITH 3D TOMOSYNTHESIS AND CAD DATE: 05/28/2023 8:49 AM DICTATION LOCATION: [place] HISTORY: Personal history of right-sided breast cancer treated with lumpectomy. Yearly exam. TECHNIQUE: Full field digital diagnostic mammograms of both breasts were obtained with 2D and 3D acquisitions. CAD was utilized. COMPARISON: Comparison made to studies dating back to 01/25/2019. BREAST COMPOSITION: There are scattered areas of fibroglandular density. FINDINGS: Mammographic changes consistent with breast conservation therapy within the right breast. No dominant masses, suspicious calcifications, parenchymal asymmetry or areas of architectural distortion are identified in either breast. The computer aided detection system was utilized. IMPRESSION: 1. No concerning developing abnormality identified. OVERALL FINAL ASSESSMENT: BI-RADS CATEGORY 2 - Benign findings. RECOMMENDATION: 1. Recommend annual mammography. Naa Sheffield MD MAMMO ORDERABLES Final Result * MICROALBUMIN/CREATININE RATIO, RANDOM UR (05/30/2022 9:28 AM PRINTED CIRCUIT BOARD ASSEMBLY REPAIRER) Creatinine, Urine 120 20 - 275 mg/dL [facility] MICROALBUMIN, URINE 0.8 See Note: mg/dL [facility] Comment: Reference Range: Reference Range Not established MICROALBUMIN/CREAT RATIO, UR 7 <30 mcg/mg creat [facility] Comment: The ADA defines abnormalities in albumin excretion as follows: Albuminuria Category Result (mcg/mg creatinine) Normal to Mildly increased <30 Moderately increased 30-299 Severely increased > OR = 300 The ADA recommends that at least two of three specimens collected within a 3-6 month period be abnormal before considering a patient to be within a diagnostic category. FASTING:YES FASTING: YES Test Performed at: [facility] [address] [place] [phone] Jj Alaniz MD 05/30/2022 9:28 AM PRINTED CIRCUIT BOARD ASSEMBLY REPAIRER 05/30/2022 9:29 AM PRINTED CIRCUIT BOARD ASSEMBLY REPAIRER Kerwin Quiroga MD URINE ORDERABLES Final Res ult [facility] [phone] [facility] [id number] [id number] * COLONOSCOPY REPORT (12/12/2021 10:33 AM CDT) Narrative Procedure Note Sourav Villeda MD - 12/12/2021 10:32 AM CDT [facility] Endoscopy Patient Name: Tita Izaguirre Procedure Date: 12/12/2021 Date of : 1955 Attending MD: Sourav Villeda MD, Procedure: Colonoscopy Indications: Surveillance: Personal history of adenomatous polyps on last colonoscopy 3 years ago Providers: Sourav Villeda MD Referring MD: Kerwin Quiroga MD Medicines: General Anesthesia Complications: No immediate complications. Estimated blood loss: Minimal. Procedure: Informed consent was obtained for the procedure, including moderate sedation after risks were discussed. Based on the pre-procedure assessment, including review of the patient's medical history, medications, allergies, and review of systems, the patient was deemed to be an appropriate candidate for sedation. A timeout was performed. Continuous ECG monitoring, pulse oximetry, blood pressure monitoring, and direct observation were performed. The Colonoscope was introduced through the anus and advanced to the cecum, identified by appendiceal orifice and ileocecal valve. The colonoscopy was performed without difficulty. The patient tolerated the procedure well. The quality of the bowel preparation was good. Estimated Blood Loss: Estimated blood loss was minimal. Findings: A 5 mm polyp was found in the hepatic flexure. The polyp was sessile. The polyp was removed with a cold snare. Resection and retrieval were complete. Multiple small and large-mouthed diverticula were found in the sigmoid colon and descending colon. Internal hemorrhoids were found during retroflexion. The hemorrhoids were medium-sized. The exam was otherwise without abnormality. Impression: - One 5 mm polyp at the hepatic flexure, removed with a cold snare. Resected and retrieved. - Diverticulosis in the sigmoid colon and in the descending colon. - Internal hemorrhoids. - The examination was otherwise normal. Recommendation: - Await pathology results. - Repeat colonoscopy in 5 years for surveillance. Sourav Villeda MD 12/12/2021 10:32:25 AM This report has been signed electronically. Number of Addenda: [address]; [place] [address] Sourav Villeda MD GI PROCEDURE ORDERABLES Final R esult * DIABETES EYE EXAM (01/02/2017) us Abstract [facility] Provider HEALTH MAINTENANCE Edited Result - Final [facility] from Last 3 Months or Most Recently Relevant to Health Maintenance Insurance MEDICARE PART A AND B [facility] [address] [facility] RX [employer] RX Member Subscriber Plan / Payer (Ef fective 2022-) Name:Tita Izaguirre Relation to Subscriber:Self Name:Dmitriy Tita Turner Payer ID:Not on file Group ID:[id number] Type:RX Commercial Address: [place] MEDICARE PART A AND B [facility] [address] Advance Directives For more information, please contact: [phone] * Full Code (Latest Code Status on File) Date Activated Date Inactivated Comments 12/12/2021 9:05 AM 12/12/2021 1:34 PM * Full Code Date Activated Date Inactivated Comments 10/21/2019 8:46 AM 10/21/2019 12:36 PM * Full Code Date Activated Date Inactivated Comments 08/26/2018 10:57 AM 08/26/2018 2:18 PM * Full Code Date Activated Date Inactivated Comments 03/01/2013 11:42 AM 03/04/2013 12:59 PM * Full Code Date Activated Date Inactivated Comments 03/01/2013 7:36 AM 03/01/2013 11:42 AM Care Teams Restaurant Supervisor Relationship Specialty [place] [address] [facility] [address] [place] [address] PCP - General Internal Medicine 02/18/21
--- OUTSIDE RECORDS SUMMARY | 2024-05-18 09:11 | XMS_ITS ---
Author Organization [facility] Address [address] [place] [address] Phone Care Team Providers Care Large Sheetfed Press Operator Name Role Phone Kerwin Quiroga MD Primary Care Provider +1- [phone] Active Problems Patient Care Coordination No te Formatting of this note migh t be different from the original. Window Maker - Dr. Jeb Ruiz ([facility]) Problem Noted Date Diagnosed Date Malignant neoplasm of upper- inner quadrant of right breast in female, estrogen receptor positive 10/21/2022 Overview (05/28/2023): Stage: Clinical T1N0; pT2N0 Date of diagnosis: 09/24/2022 Diagnosis: RIGHT 31 mm IDC, 0/2 LN ER(+) [place](+) Her 2(-) Surgeon: Nettie Surgery: 10/31/2022 right [...] 09/16/2006 Allergic rhinitis due to pollen 09/16/2006 Current Treatment and Therapy Plans No current plan information found. Past Treatment and Therapy Plans No past plan information found. Lifetime Dose Tracking * Chemical Lifetime Dose Automatic Entry Manual Entr y Effective Dose 59.12 mSv 59.12 mSv 0 mSv Total DLP 4,789.82 DLP 4,789.82 DLP 0 DLP CTDIvol Max 94.5 mGy 94.5 mGy 0 mGy CTDIvol Min 74.87 mGy 74.87 mGy 0 mGy Resolved Problems Problem Noted Date Diagnosed Date [...]
--- OUTSIDE RECORDS SUMMARY | 2024-05-18 09:11 | XMS_ITS | Referral Summary ---
Author Organization [facility] Address [address] [place] [address] Care Team Providers Care Needle Process Felt Goods Supervisor Name Role Phone Kerwin Quiroga MD Primary Care Provider +1 -[phone] Encounters Date Type Department Care Team Description 04/30/2024 12:30 PM WIND TURBINE INSTALLER Office Visit [facility] [place] [address] [place] [phone] Leidy Villalpando NP Acute non-recurrent pansinusitis (Primary Dx); Body aches; Fever and chills 04/25/2024 11:30 AM WIND TURBINE INSTALLER Office Visit [facility] [place] [address] [place] [address] Tatiana Rowell NP Laryngitis (Primary Dx); Post-nasal drip 03/14/2024 Telephone [facility] [place] [address] [place] [address] Silva Castro MA 03/12/2024 3:18 PM WIND TURBINE INSTALLER - 03/12/2024 11:59 PM WIND TURBINE INSTALLER [place] [address] UTI symptoms Discharge Disposition: Discharge to home or self care 03/12/2024 3:30 PM WIND TURBINE INSTALLER Office Visit [facility] [place] [address] [place] [phone] Mariela Cardona NP UTI symptoms (Primary Dx); Acute bacterial sinusitis from Last 3 Months Allergies Active Allergy Reactions Criticality Noted Date Comments Lisinopril Cough Low 05/17/2010 Penicillins Rash Medium 02/06/2011 Semaglutide Stomach upset Low 07/21/2018 Medications cyclobenzaprine (FLEXERIL) 5 mg tablet Take 1 tablet (5 mg total) by mouth 2 (two) times a day as needed for muscle spasms. 6 tablet 8 Active HYDROcodone-acet aminophen (NORCO) 5-325 mg per tabletIndication s:Pain Take 2 tablets by mouth every 6 (six) hours as needed for pain. Do not exceed 8 tablets/day. 10 tablet 8 Active cholecalciferol (VITAMIN D-3) 5,000 unit capsule Take 10 capsules (50,000 Units total) by mouth Active albuterol HFA (PROVENTIL HFA,VENTOLIN HFA,PROAIR HFA) 90 mcg/actuation inhaler INHALE 2 PUFFS PO Q 4-6 H NEEDED FOR SHORTNESS OF BREATH OR WHEEZING 0 Active aspirin 81 mg enteric coated tablet Take 1 tablet (81 mg total) by mouth daily 1 Active atenoloL (TENORMIN) 50 mg tablet Take 1 tablet (50 mg total) by mouth daily 0 Active baclofen (LIORESAL) 10 mg tablet Take 1 tablet (10 mg total) by mouth 3 (three) times a day as needed 1 Active blood glucose diagnostic strip Checks 4 times daily. 9 Active canagliflozin (INVOKANA) 100 mg tablet Take 1 tablet (100 mg total) by mouth Active esomeprazole DR (NexIUM) 40 mg capsule Take by mouth daily as needed 1 Active fluconazole (DIFLUCAN) 150 mg tablet 1 Active insulin detemir (LEVEMIR) 100 unit/mL (3 mL) pen for injection INJECT 52 UNITS UNDER THE SKIN AT BEDTIME 1 Active insulin lispro (HumaLOG, ADMELOG) 100 unit/mL pen for injection 17 units with breakfast, 26 units with lunch, 23 units with dinner + sliding scale. 80 units daily. Dose change 1 Active lancets 33 gauge misc 4 (four) times a day 8 Active meloxicam (MOBIC) 7.5 mg tablet TAKE 1 TABLET(7.5 MG) BY MOUTH DAILY 0 Active metFORMIN XR (GLUCOPHAGE XR) 500 mg 24 hr tablet TAKE 2 TABLETS(1000 MG) BY MOUTH TWICE DAILY WITH MEALS 1 Active montelukast (SINGULAIR) 10 mg tablet Take by mouth daily 1 Active olmesartan (BENICAR) 20 mg tablet Take 2 tablets (40 mg total) by mouth Active PARoxetine (PAXIL) 20 mg tablet Take 2 tablets (40 mg total) by mouth Active pimecrolimus (ELIDEL) 1 % cream APPLY TOPICALLY TO THE AFFECTED AREA TWICE DAILY 1 Active simvastatin (ZOCOR) 40 mg tablet Take 1 tablet (40 mg total) by mouth daily 1 Active methylPREDNISolo ne (Medrol, Aaron,) 4 mg DosepackIndicati ons:Wasp sting, accidental or unintentional, initial encounter follow package directions 1 packet 3 Active anastrozole (ARIMIDEX) 1 mg tablet Take 1 tablet (1 mg total) by mouth daily 3 Active dulaglutide (TRULICITY) 0.75 mg/0.5 mL pen injector Inject 0.5 mL (0.75 mg total) under the skin once a week 4 Active famotidine (PEPCID) 40 mg tablet Take 1 tablet (40 mg total) by mouth daily 4 Active meclizine (ANTIVERT) 25 mg tablet Take 1 tablet (25 mg total) by mouth 3 (three) times a day as needed 3 Active fluticasone propionate (FLONASE) 50 mcg/actuation nasal sprayIndications :Post-nasal drip Administer 2 sprays into each nostril daily 1 each 5 Active doxycycline (VIBRAMYCIN) 100 mg capsuleIndicatio ns:Acute non-recurrent pansinusitis Take 1 tablet/capsule (100 mg total) by mouth 2 (two) times a day for 10 days 20 tablet/capsu le 5 05/10/19 25 predniSONE (DELTASONE) 10 mg tabletIndication s:Acute non-recurrent pansinusitis Take 1 tablet (10 mg) by mouth daily for 5 days With food early in day 5 tablet 5 05/05/19 25 Active Problems Problem Noted Date Diagnosed Date 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 (CMS/HCC) 11/12/2018 Grade 2 sprain of medial collateral ligament of knee 07/04/2016 Rosacea 02/10/2016 Type 2 diabetes mellitus without complication (C MS/HCC) 03/02/2015 Mixed hyperlipidemia 12/26/2014 Low back pain 11/18/2014 S/P knee replacement 03/01/2013 Palpitations 03/01/2013 Allergic rhinitis due to pollen 09/16/2006 Esophageal reflux 09/16/2006 Essential hypertension, benign 09/16/2006 Social History Tobacco Use Types Packs/Day Years Used Date Smoking Tobacco: Never Smokeless Tobacco: Never Tobacco Cessation:Counseling Given: Not Answered Comments No Sex and Gender Information Value Date Recorded Sex Assigned at Not on file Legal Sex Female 1:48 AM WIND TURBINE INSTALLER Gender Identity Not on file Sexual Orientation Not on file Last Filed Vital Signs Vital Sign Reading Time Taken Comments Blood Pressure 116/62 04/30/2024 12:33 PM WIND TURBINE INSTALLER Pulse 79 04/30/2024 12:33 PM WIND TURBINE INSTALLER Temperature 37 C (98.6 F) 04/30/2024 12:33 PM WIND TURBINE INSTALLER Respiratory Rate 18 04/30/2024 12:33 PM WIND TURBINE INSTALLER Oxygen Saturation 98% 04/30/2024 12:33 PM WIND TURBINE INSTALLER Inhaled Oxygen Concentration - - Weight 92.5 kg (204 lb) 04/30/2024 12:33 PM WIND TURBINE INSTALLER Height 162.6 cm (5' 4 ) 04/30/2024 12:33 PM WIND TURBINE INSTALLER Body Mass Index 35.02 04/30/2024 12:33 PM WIND TURBINE INSTALLER Plan of Treatment Not on file Procedures Procedure Name Priority Date/Time Associated Diagnosis Comments POC INFLUENZA A/B, COVID-19 ANTIGEN Routine 04/30/2024 12:58 PM WIND TURBINE INSTALLER Body aches Fever and chills POCT RAPID STREP Routine 04/30/2024 12:5 8 PM WIND TURBINE INSTALLER Body aches POC INFLUENZA A/B, COVID-19 ANTIGEN Routine 04/25/2024 11:47 AM WIND TURBINE INSTALLER Laryngitis POCT RAPID STREP Routine 04/25/2024 11:3 9 AM WIND TURBINE INSTALLER Laryngitis POCT URINALYSIS DIPSTICK Routine 03/12/2024 3:30 PM WIND TURBINE INSTALLER UTI symptoms URINE CULTURE Routine 03/12/2024 3:18 PM WIND TURBINE INSTALLER UTI symptoms from Last 3 Months Results * POC Influenza A/B, COVID-19 antigen (04/30/2024 12:58 PM WIND TURBINE INSTALLER) Influenza A Ag, POC Negative Negative [facility] Influenza B Ag, POC Negative Negative [facility] COVID-19 Ag POC Presumptive Negative Presumptive Negative, Invalid [facility] Nasal 04/30/2024 12:5 8 PM WIND TURBINE INSTALLER Leidy Villalpando GENERAL PRACTITIONER POINT OF CARE TEST ORDERABLES Final Result Performing Organization Address [facility] de Phone Number [facility] [address] [place] [phone] [place] [address] * POCT rapid strep A (04/30/2024 12:58 PM WIND TURBINE INSTALLER) Pathologist [facility] Rapid Strep A, POC Negative Negative [facility] Swab 04/30/2024 12:5 8 PM WIND TURBINE INSTALLER Leidy Villalpando GENERAL PRACTITIONER POINT OF CARE TEST ORDERABLES Final Result Performing Organization Address [facility] Co de Phone Number [facility] [address] [place] [address], [facility] * POC Influenza A/B, COVID-19 antigen (04/25/2024 11:47 AM WIND TURBINE INSTALLER) Influenza A Ag, POC Negative Negative [facility] Influenza B Ag, POC Negative Negative [facility] COVID-19 Ag POC Presumptive Negative Presumptive Negative, Invalid [facility] Nasal 04/25/2024 11:4 7 AM WIND TURBINE INSTALLER Tatiana Rowell NP POINT OF CARE TEST ORDERABLES Fi nal Result [facility] [address] [place] [address], [facility] * POCT rapid strep A (04/25/2024 11:39 AM WIND TURBINE INSTALLER) Rapid Strep A, POC Negative Negative Swab 04/25/2024 11:3 9 AM WIND TURBINE INSTALLER Tatiana Rowell GENERAL PRACTITIONER POINT OF CARE TEST ORDERABLES Fi nal Result * (ABNORMAL) POCT urinalysis dipstick (03/12/2024 3:30 PM WIND TURBINE INSTALLER) Color, Urine, POC Rosalba Clarity, ur, POC Cloudy(A) Clear Glucose, ur, POC Negative Negative MG/DL Bilirubin, ur, POC Negative Negative, Small, Moderate, Large Ketones, ur, POC Negative Negative Specific Chicken, POC 1.030 1.003 - 1.030 Blood, ur, POC Trace(A) Negative pH, ur, POC 6.5 5.0 - 8.0 Protein, ur, POC Negative Negative Urobilinogen, urine, POC 0.2 0.2 - 1.0 mg/dL Nitrite, ur, POC Negative Negative Leukocytes, ur, POC Trace(A) Negative Lot Number [id number] Urine 03/12/2024 3:30 PM WIND TURBINE INSTALLER Mariela Cardona GENERAL PRACTITIONER POINT OF CARE TEST ORDERABLES Final Result * Urine culture Urine, clean voided (03/12/2024 3:18 PM WIND TURBINE INSTALLER) Report Final Report: Less than 100,000 colonies/mL (clinically insignificant growth based on current clinical standards) Comment:Testing performed by : [facility], [address] [facility]., [address] Organism (CLINICALLY INSIGNIFICANT GROWTH [place] Urine, clean voided 03/12/2024 3:18 PM WIND TURBINE INSTALLER 03/12/2024 8:11 PM WIND TURBINE INSTALLER Yury TODD CH - 03/14/2024 12:19 AM WIND TURBINE INSTALLER Testing performed by [facility] ([phone]) us Mariela Cardona NP LAB MICROBIOLOGY - GENERAL ORD ERABLES Final Result [place] [address] Department [place] [address] from Last 3 Months Insurance MEDICARE [facility] MEDICARE AARP Care Teams Needle Process Felt Goods Supervisor Relationship Specialty [place] [address] [facility] [address] [place] [address] PCP - General Internal Medicine 01/18/21
--- OUTSIDE RECORDS SUMMARY | 2024-05-18 09:11 | XMS_ITS | Encounter Summary ---
Author Organization [facility] Address [address] [place] [address] Care Team Providers Care Electrical Engineer Mep Name Role Phone Kerwin Quiroga MD Primary Care Provider +1- [phone] Encounter Details Date Type Department Care Team (Latest Contact Info) Description 05/22/2004 Outpatient Historical HIS COMMUNITY SURVEYING TECHNICIAN Mayte Walters, [address] [place] [address] Jeremías Farias MD NO ADDRESS ON FILE DIABETES MELLITUS TYPE II-UNCOMPL (CMS/HCC) (Primary Dx) Social History Tobacco Use Types Packs/Day Years Used Date Smoking Tobacco: Never Assessed Comments Unknown Sex and Gender Information Value Date Recorded Sex Assigned at Not on file Legal Sex Female 4:29 AM LABORER CEMENT GUN PLACING Gender Identity Not on file Sexual Orientation Not on file documented as of this encounter Plan of Treatment Upcoming Encounters Date Type Department Care Team (Late st Contact Info) Description 05/20/2024 9:30 AM LABORER CEMENT GUN PLACING Office Visit [facility] Internal Medicine Phuong Mahoney [address] [place] [address] [place] [address] [facility] [address] [facility] [address] 05/24/2024 11:45 AM LABORER CEMENT GUN PLACING Office Visit [facility] Oncology and Hematology - [address] [facility] [address] [place] [address] Nelson Cazares MD [address] [facility] [address] [place] [address] 06/07/2024 12:00 PM CDT Appointment [facility] [address] [place] [address] [place] [address] [place] [address] 06/07/2024 1:05 PM CDT Office Visit [facility] [address] [place] [address] [place] [address] [place] [address] 06/20/2024 8:30 AM CDT Office Visit [facility] Internal Medicine Phuong Mahoney [address] [place] [address] [place] [address] [place] [address] 06/20/2024 11:15 AM CDT Office Visit [facility] Endocrinology [address] [place] [address] Shanice Llamas MD [address] [place] [address] 12/08/2024 11:00 AM CDT Office Visit [facility] Heart and Vascular - [facility] [address] [place] [address] Nam Coto MD [address] [facility] [address] [place] [address] documented as of this encounter Visit Diagnoses Diagnosis Type II or unspecified type diabetes mellitus without mention of complication, not stated as uncontrolled (CMS/HCC)- Primary Type II or unspecified type diabetes mellitus without mention of complication, not stated as uncontrolled documented in this encounter Additional Health Concerns Infection Onset Date Last Indicated Resolved Time R/O COVID-12/28/2019 12/28/2019 12/30/2019 5:45 AM CDT COVID-12/28/2019 12/28/2019 01/27/2020 1:16 AM CDT documented as of this encounter Care Teams Electrical Engineer Mep Relationship Specialty [place] [address] [facility] [address] [place] [phone] PCP - General Internal Medicine 02/18/21 documented as of this encounter
--- OUTSIDE RECORDS SUMMARY | 2024-05-18 09:11 | XMS_ITS | Encounter Summary ---
Author Organization [facility] Address [address] [place] [address] Care Team Providers Care Drawer Hardware Worker Name Role Phone Kerwin Quiroga MD Primary Care Provider +1- [phone] Encounter Details Date Type Department Care Team (Late st Contact Info) Description 02/15/2004 Outpatient Historical [facility] Jeremías Farias MD NO ADDRESS ON FILE Social History Tobacco Use Types Packs/Day Years Used Date Smoking Tobacco: Never Assessed Comments Unknown Sex and Gender Information Value Date Recorded Sex Assigned at Not on file Legal Sex Female 4:29 AM PROTOTYPE ENGINEER Gender Identity Not on file Sexual Orientation Not on file documented as of this encounter Plan of Treatment Upcoming Encounters Date Type Department Care Team (Late st Contact Info) Description 05/20/2024 9:30 AM PROTOTYPE ENGINEER Office Visit [facility] Internal Medicine Phuong Denzel [address] [place] [address] [place] [address] [facility] [place] [phone] 05/24/2024 11:45 AM PROTOTYPE ENGINEER Office Visit [facility] Oncology and Hematology - [address] [facility] [address] [place] [address] Nelson Cazares MD [address] [facility] [address] [place] [address] 06/07/2024 12:00 PM CDT Appointment [facility] [address] [place] [address] [place] [address] [place] [phone] 06/07/2024 1:05 PM CDT [facility] Visit [facility] [address] [place] [address] [place] [address] [place] [address] 06/20/2024 8:30 AM CDT Office Visit [facility] Internal Medicine [address] [facility] [address] [place] [address] [place] [address] [place] [address] 06/20/2024 11:15 AM CDT Office Visit [facility] Endocrinology [address] [place] [address] Shanice Llamas MD [address] [place] [address] 12/08/2024 11:00 AM CDT Office Visit [facility] Heart and Vascular - [facility] [address] [place] [address] Nam Coto MD [address] [facility] [address] [place] [address] documented as of this encounter Visit Diagnoses Not on filedocumented in this encounter Additional Health Concerns Infection Onset Date Last Indicated Resolved Time R/O COVID-19 12/28/2019 12/28/2019 12/30/2019 5:45 AM CDT COVID-19 12/28/2019 12/28/2019 01/27/2020 1:16 AM CDT documented as of this encounter Care Teams Drawer Hardware Worker Relationship Specialty [place] [address] [facility] [address] [place] [address] PCP - General Internal Medicine 02/18/21 documented as of this encounter
--- OUTSIDE RECORDS SUMMARY | 2024-05-18 09:11 | XMS_ITS | Encounter Summary ---
Author Organization [facility] Address [address] Ramosn: Epic Prelude ADT [place] [address] Care Team Providers Care Lithostripper Name Role Phone Kerwin Quiroga MD Primary Care Provider +1- [phone] Encounter Details Date Type Department Care Team (Latest Contact Info) Description 03/08/2007 Orders Only Yasemin Davis MD Social History Tobacco Use Types Packs/Day Years Used Date Smoking Tobacco: Never Assessed Comments Unknown Sex and Gender Information Value Date Recorded Sex Assigned at Not on file Legal Sex Female 4:29 AM SERVICE DELIVERY DIRECTOR Gender Identity Not on file Sexual Orientation Not on file documented as of this encounter Progress Notes * Interface, Emiliano Stl Conv Transcriptions - 08/12/2007 10:41 AM CDT TIME:09:47 am PATIENT`S HOME PHONE: PATIENT`S WORK PHONE: PATIENT`S INSURANCE: [facility] WHO TOOK THE CALL: Katina Marie J GENERAL INFORMATION PATIENT STATUS: Established Patient. LAST VISIT: PCP: joslyn. ALTERNATIVE PHONE NUMBER: [phone] WHO CALLED: Patient called. PHARMACY NUMBER: [phone] PROBLEMS: Pt is calling in with head congestion, cough that is not productive, green nasal drainage, and low grade fever.She states that this has been going on for about 5 day. she has been using tylenol sinus with little relief. She would like something called in. SECTION 1: DOCTOR`S RESPONSE: [email or web address] 03/08/07 at 09:58 am can she come in to see me? SECTION 2: FINAL ACTION: [email or web address] 03/08/07 at 10:26 am Spoke with patient 03/08/07 at 10:26 am. appt schd Electronically Signed by: Princess Arias on Thursday, March 08, 2007 * Emiliano Alvarenga Conv Transcriptions - 08/12/2007 10:36 AM CDT WEIGHT: 195lbs BLOOD PRESSURE: 110/66 Right Arm Sitting TEMPERATURE: 97.5??f Tympanic PULSE: 82 Right Radial, Regular RESPIRATIONS: 20 HEIGHT: 63 3/4in NURSE NAME: Ramya Bustillos S ALLERGIES: Allergies are as listed. MEDICATIONS: Medication list current. CHIEF COMPLAINT congestion,cough & fever.lj HISTORY: HISTORY OF PRESENT ILLNESS: UPPER RESPIRATORY: Onset is gradual. The upper respiratory symptoms began approximately 4 days ago,to 5 days ago. Symptoms include sinus congestion, symptoms include runny nose, has symptoms of cough, nonproductive cough, symptoms include headache, symptoms of sore throat, no symptoms of allergies, no symptoms of chest congestion, no symptoms of chest pain, has symptoms of chills, symptoms include fever, felt warm, low grade fever, has no symptoms of diarrhea, bilateral earache, symptoms include nausea, symptoms include nasal congestion, symptoms include nasal discharge, symptoms include post nasal drainage, symptoms include loss of appetite. The symptoms have been worsening. Therapies tried include cold medicine. CURRENT MEDICATION LIST: NEXIUM ORAL CAPSULE DELAYED RELEASE 40 MG, 1 Two Times A Day ESTRATEST ORAL TABLET 1.25-2.5 MG, 1 Every Day METFORMIN HCL ORAL TABLET 1000 MG, 1 Two Times A Day GLIMEPIRIDE ORAL TABLET 2 MG, 2 Every Day SULFAMETHOXAZOLE-TRIMETHOPRIM ORAL TABLET 800-160 MG, 1 Every Day ASTELIN NASAL SOLUTION 137 MCG/SPRAY, BYETTA 10 MCG PEN SUBCUTANEOUS SOLUTION 10 MCG/0.04ML, as directed PAROXETINE HCL ORAL TABLET 20 MG, 1 Every Day SIMVASTATIN ORAL TABLET 40 MG, 1 Every Day LISINOPRIL ORAL TABLET 20 MG, 1 Every Day At Bedtime RHINOCORT AQUA NASAL SUSPENSION 32 MCG/ACT, 2 sprays in each nostril once daily. CURRENT ALLERGY LIST: PCN ROS: GENERAL: HAS CHILLS, HAS A LOW GRADE FEVER, DECREASED ENERGY LEVEL. ENT: See HISTORY OF PRESENT ILLNESS. CARDIAC: No chest pain, palpitations, orthopnea, dyspnea on exertion, or paroxysmal nocturnal dyspnea. RESPIRATORY: HAS A COUGH. : No frequency, urgency, hematuria or dysuria. GI: No abdominal pain, nausea, vomiting, diarrhea, constipation, melena, or hematochezia. MUSCULOSKELETAL: No muscle or joint pain, weakness, swelling or inflammation. No restriction of motion, no atrophy or backache. PAST MEDICAL HISTORY: MEDICAL: Diabetes, hypercholesterolemia, hypertension, gastroesophageal reflux. SOCIAL HISTORY: TOBACCO USE: Has no significant smoking history. PHYSICAL EXAMINATION: CONSTITUTIONAL: GENERAL APPEARANCE: In no acute distress. EARS, NOSE, MOUTH AND THROAT: EXTERNAL/EARS AND NOSE: Overall appearance normal with no scars, lesions or masses. EARS: BULGING TYMPANIC MEMBRANES NOTED BILATERALLY, external auditory canal normal bilaterally. NOSE (AND SINUS): TURBINATES INFLAMED BILATERALLY, MAXILLARY SINUSES ARE TENDER BILATERALLY. ORAL: Inspection of the gums, lips, palate, and teeth are normal, COBBLE STONING NOTED ON THE POSTERIOR PHARYNX. NECK/THYROID: Trachea midline. No thyroid enlargement, tenderness, or mass. No supraclavicular or cervical adenopathy. RESPIRATORY: Clear to auscultation and percussion. Normal respiratory effort. CARDIOVASCULAR: CARDIAC: Regular rhythm. No murmurs, rubs, or gallops. EDEMA/VARICOSITIES OF EXTREMITIES: No edema or varicosities. GASTROINTESTINAL: ABDOMEN: Soft, non-tender, without masses. Bowel sounds active. MUSCULOSKELETAL EXAM: GAIT/STATION: Normal gait. ASSESSMENT/PLAN: 461.0-ACUTE SINUSITIS ASSESSMENT: worsening. Given her history of diabetes, I would like to start treatment with a courseof antibiotics. She is to call if there is no improvement. MEDICATIONS: ZITHROMAX Z-KYLE ORAL TABLET 250 MG, 2 tabs first day, then 1 tab daily, 1 Dispensed, status: NEW PRESCRIPTION, 03/08/2007. RETURN VISIT : Instructed to call if not improving. Electronically Signed by: Yasemin Lacy MD on Thursday, March 08, 2007 documented in this encounter Plan of Treatment Upcoming Encounters Date Type Department Care Team (Late st Contact Info) Description 05/20/2024 9:30 AM SERVICE DELIVERY DIRECTOR Office Visit [facility] Internal Medicine Phuong [place]oney [address] [place] [phone] [place] [address] [place] [address] 05/24/2024 11:45 AM SERVICE DELIVERY DIRECTOR Office Visit [facility] Oncology and Hematology - [place] [address] [place] [address] Nelson Cazares MD [address] [facility] [address] [place] [address] 06/07/2024 12:00 PM CDT Appointment [facility] [address] [place] [address] [place] [address] [place] [address] 06/07/2024 1:05 PM CDT Office Visit [facility] Breast Surgery [facility] [address] [facility] [address] [place] [address] [place] [address] [place] [address] 06/20/2024 8:30 AM CDT Office Visit [facility] Internal Medicine [place] [address] [place] [phone] [place] [address] [place] [phone] 06/20/2024 11:15 AM CDT Office Visit [facility] Endocrinology [address] [place] [address] Shanice Llamas MD [address] [place] [address] 12/08/2024 11:00 AM CDT Office Visit [facility] Heart and Vascular - [facility] [address] [place] [address] Nam Coto MD [address] [place] [address] documented as of this encounter Visit Diagnoses Not on filedocumented in this encounter Additional Health Concerns Infection Onset Date Last Indicated Resolved Time R/O COVID-19 12/28/2019 12/28/2019 12/30/2019 5:45 AM CDT COVID-19 12/28/2019 12/28/2019 01/27/2020 1:16 AM CDT documented as of this encounter Care Teams Lithostripper Relationship Specialty [place] [address] [facility] [address] [place] [address] PCP - General Internal Medicine 02/18/21 documented as of this encounter
--- OUTSIDE RECORDS SUMMARY | 2024-05-18 09:11 | XMS_ITS | Encounter Summary ---
Author Organization [facility] Address [address] Ramosn: Epic Prelude ADT [place] [address] Care Team Providers Care Dewaxer Name Role Phone Kerwin Quiroga MD Primary Care Provider +1- [phone] Encounter Details Date Type Department Care Team (Latest Contact Info) Description 03/17/2007 Orders Only Yasemin Davis MD Social History Tobacco Use Types Packs/Day Years Used Date Smoking Tobacco: Never Assessed Comments Unknown Sex and Gender Information Value Date Recorded Sex Assigned at Not on file Legal Sex Female 4:29 AM CHEMICAL EQUIPMENT REPAIRER Gender Identity Not on file Sexual Orientation Not on file documented as of this encounter Progress Notes * Interface, Emiliano Stl Conv Transcriptions - 08/12/2007 12:32 PM CDT TIME:09:27 am PATIENT`S HOME PHONE: PATIENT`S WORK PHONE: PATIENT`S INSURANCE: [facility] WHO TOOK THE CALL: Katina Marie J GENERAL INFORMATION PATIENT STATUS: Established Patient. PCP: joslyn. ALTERNATIVE PHONE NUMBER: [phone] WHO CALLED: Patient called. PHARMACY NUMBER: [phone] PROBLEMS: Pt is calling in stating she is still having head congestion, sore throat, green mucus, and headaches. she states that you told her that is she did not improve to call back and you would call something in for her. She states that the z-orly did not really work. She would like something else called in. SECTION 1: DOCTOR`S RESPONSE: mino 03/17/07 at 09:33 am MEDICATIONS: Call in to Pharmacy LEVAQUIN ORAL TABLET 500 MG, 1 Every Day, 7 Dispensed, status: NEW PRESCRIPTION, 03/17/2007. FINAL ACTION: ignacio 03/17/07 at 11:14 am Spoke with patient 03/17/07 at 11:18 am. informed her that rx called in Called pharmacy at 03/17/07 at 11:14 am. called in rx Electronically Signed by: Ramya Bustillos on Saturday, March 17, 2007 documented in this encounter Plan of Treatment Upcoming Encounters Date Type Department Care Team (Late st Contact Info) Description 05/20/2024 9:30 AM CHEMICAL EQUIPMENT REPAIRER Office Visit [facility] Internal Medicine [place] [address] [facility] [address] [place] [address] [place] [address] [facility] [address] [place] [address] 05/24/2024 11:45 AM CHEMICAL EQUIPMENT REPAIRER Office Visit [facility] Oncology and Hematology - [place]as [address] [facility] [address] [place] [address] Nelson Cazarse MD [address] [facility] [address] [place] [address] 06/07/2024 12:00 PM CDT Appointment [facility] [address] [place] [address] [place] [address] [place] [address] 06/07/2024 1:05 PM CDT Office Visit [facility] Breast Surgery [place] [facility] [address] [place] [address] [place] [address] [place] [address] 06/20/2024 8:30 AM CDT Office Visit [facility] Internal Medicine Phuong [place]oney [address] [facility] [address] [place] [address] [place] [address] [facility] [address] [place] [address] 06/20/2024 11:15 AM CDT Office Visit [facility] Endocrinology [address] [place] [address] Shanice Llamas MD [address] [place] [address] 12/08/2024 11:00 AM CDT Office Visit [facility] Heart and Vascular - [facility] [address] [place] [address] Nam Coto MD [address] [facility] [address] [place] [address] documented as of this encounter Visit Diagnoses Not on filedocumented in this encounter Additional Health Concerns Infection Onset Date Last Indicated Resolved Time R/O COVID-19 12/28/2019 12/28/2019 12/30/2019 5:45 AM CDT COVID-19 12/28/2019 12/28/2019 01/27/2020 1:16 AM CDT documented as of this encounter Care Teams Dewaxer Relationship Specialty [place] [address] [address] [facility] [address] [place] [address] PCP - General Internal Medicine 02/18/21 documented as of this encounter
--- OUTSIDE RECORDS SUMMARY | 2024-05-18 09:11 | XMS_ITS | Encounter Summary ---
Author Organization [facility] Address [address] [place] [address] Care Team Providers Care Targeting Acquisition Officer Name Role Phone Kerwin Quiroga MD Primary Care Provider +1- [phone] Encounter Details Date Type Department Care Team (Late st Contact Info) Description 02/21/2004 Outpatient Historical [facility] Boy Kaufman MD [address] [place] [address] BENIGN NEOPLASM LG BOWEL (Primary Dx) Social History Tobacco Use Types Packs/Day Years Used Date Smoking Tobacco: Never Assessed Comments Unknown Sex and Gender Information Value Date Recorded Sex Assigned at Not on file Legal Sex Female 4:29 AM SAFETY DIRECTOR Gender Identity Not on file Sexual Orientation Not on file documented as of this encounter Plan of Treatment Upcoming Encounters Date Type Department Care Team (Late st Contact Info) Description 05/20/2024 9:30 AM SAFETY DIRECTOR Office Visit [facility] Internal Medicine [place]oney [address] [facility] [address] [place] [address] [place] [address] [address] [facility] [address] [place] [address] 05/24/2024 11:45 AM SAFETY DIRECTOR Office Visit [facility] Oncology and Hematology - [place] [address] [facility] [address] [place] [address] Nelson Cazares MD [address] [facility] [address] [place] [address] 06/07/2024 12:00 PM CDT Appointment [facility] [address] [place] [address] [place] [address] [place] [phone] 06/07/2024 1:05 PM CDT Office Visit [facility] Breast Surgery [place] [address] [place] [address] [place] [address] [place] [address] 06/20/2024 8:30 AM CDT Office Visit [facility] Internal Medicine [place] [address] [place] [address] [place] [address] [place] [address] 06/20/2024 11:15 AM CDT Office Visit [facility] Endocrinology [address] [facility] [place] [address] Shanice Llamas MD [address] [facility] [address] [place] [address] 12/08/2024 11:00 AM CDT Office Visit [facility] Heart and Vascular - [facility] [address] [place] [address] Nam Coto MD [address] [facility] [address] [place] [address] documented as of this encounter Visit Diagnoses Diagnosis Benign neoplasm of colon- Primary documented in this encounter Additional Health Concerns Infection Onset Date Last Indicated Resolved Time R/O COVID-19 12/28/2019 12/28/2019 12/30/2019 5:45 AM CDT COVID-19 12/28/2019 12/28/2019 01/27/2020 1:16 AM CDT documented as of this encounter Care Teams Targeting Acquisition Officer Relationship Specialty [place] [address] [facility] [address] [place] [phone] PCP - General Internal Medicine 02/18/21 documented as of this encounter
--- OUTSIDE RECORDS SUMMARY | 2024-05-18 09:11 | XMS_ITS | Encounter Summary ---
Author Organization [facility] Address [address] [place] [address] Care Team Providers Care Poultry Buyer Name Role Phone Kerwin Quiroga MD Primary Care Provider +1- [phone] Encounter Details Date Type Department Care Team (Late st Contact Info) Description 03/08/2007 Outpatient Historical [facility] Internal Medicine Ph[place] [address] [place] [address] Saturnino ms, MD Yasemin Social History Tobacco Use Types Packs/Day Years Used Date Smoking Tobacco: Never Assessed Comments Unknown Sex and Gender Information Value Date Recorded Sex Assigned at Not on file Legal Sex Female 4:29 AM RESEARCH AND DEVELOPMENT RESEARCHER Gender Identity Not on file Sexual Orientation Not on file documented as of this encounter Plan of Treatment Upcoming Encounters Date Type Department Care Team (Late st Contact Info) Description 05/20/2024 9:30 AM RESEARCH AND DEVELOPMENT RESEARCHER Office Visit [facility] Internal Medicine [place] [address] [place] [address] [place] [address] [place] [address] 05/24/2024 11:45 AM RESEARCH AND DEVELOPMENT RESEARCHER Office Visit [facility] Oncology and Hematology - [place] [address] [place] [address] Nelson Cazares MD [address] [facility] [address] [place] [address] 06/07/2024 12:00 PM CDT Appointment [facility] [place] [address] [place] [address] [place] [address] [place] [address] 06/07/2024 1:05 PM CDT Office Visit [facility] Breast Surgery [place] [address] [place] [address] [place] [address] [place] [address] 06/20/2024 8:30 AM CDT Office Visit [facility] Internal Medicine [address] [place] [address] [place] [address] [place] [address] 06/20/2024 11:15 AM CDT Office Visit [facility] Endocrinology [address] [place] [address] Shanice Llamas MD [address] [place] [address] 12/08/2024 11:00 AM CDT Office Visit [facility] [address] [place] [address] Nam Coto MD [address] [facility] [address] [place] [address] documented as of this encounter Visit Diagnoses Not on filedocumented in this encounter Additional Health Concerns Infection Onset Date Last Indicated Resolved Time R/O COVID-19 12/28/2019 12/28/2019 12/30/2019 5:45 AM CDT COVID-19 12/28/2019 12/28/2019 01/27/2020 1:16 AM CDT documented as of this encounter Care Teams Poultry Buyer Relationship Specialty [place] [address] [facility] [address] [place] [address] PCP - General Internal Medicine 02/18/21 documented as of this encounter
--- OUTSIDE RECORDS SUMMARY | 2024-05-18 09:11 | XMS_ITS | Clinical Summary ---
Author Organization [facility] Address [address] [place] [address] Care Team Providers Care Pattern Chain Maker Supervisor Name Role Phone Kerwin Quiroga MD Primary Care Provider +1 -[phone] Allergies Active Allergy Reactions Criticality Noted Date [...] Esophageal reflux 09/16/2006 Essential hypertension, benign 09/16/2006 Encounters Date Type Department Care Team Description 04/30/2024 12:30 PM FIELD SALES REPRESENTATIVE Office Visit [facility] at [address] [place] [address] Leidy Villalpando NP Acute non-recurrent pansinusitis (Primary Dx); Body aches; Fever and chills 04/25/2024 11:30 AM FIELD SALES REPRESENTATIVE Office Visit [facility] at [address] [place] [address] Tatiana Rowell NP Laryngitis (Primary Dx); Post-nasal drip 03/14/2024 Telephone [facility] at [address] [place] [address] Silva Castro MA 03/12/2024 3:30 PM FIELD SALES REPRESENTATIVE Office Visit [facility] at [address] [place] [address] Mariela Cardona NP UTI symptoms (Primary Dx); Acute bacterial sinusitis 03/12/2024 3:18 PM FIELD SALES REPRESENTATIVE - 03/12/2024 11:59 PM FIELD SALES REPRESENTATIVE Hospital Encounter [place] [id number] UTI symptoms Discharge Disposition: Discharge to home or self care from Last 3 Months Surgical History Surgery Date Site/Laterality Comments KNEE SURGERY JOINT REPLACEMENT CHOLECYSTECTOMY HYSTERECTOMY BREAST BIOPSY 09/24/2022 Right BREAST LUMPECTOMY 09/27/2022 - 10/27/2022 Right Medical History Medical History Date Comments Hypertension Hypercholesteremia Diabetes mellitus (HCC) Gastric reflux Breast cancer (HCC) Family History Medical History Relation Name Comments Cancer Other Clotting disorder Other Diabetes Other Heart disease Other Hypertension Other Relation Name Status Comments Other Social History Tobacco Use Types Packs/Day Years Used Date Smoking Tobacco: Never Smokeless Tobacco: Never Tobacco Cessation:Counseling Given: Not Answered Comments No Sex and Gender Information Value Date Recorded Sex Assigned at Not on file Legal Sex Female 1:48 AM FIELD SALES REPRESENTATIVE Gender Identity Not on file Sexual Orientation Not on file Obstetrics History Last Filed Vital Signs Vital Sign Reading Time Taken Comments Blood Pressure 116/62 04/30/2024 12:33 PM FIELD SALES REPRESENTATIVE Pulse 79 04/30/2024 12:33 PM FIELD SALES REPRESENTATIVE Temperature 37 C (98.6 F) 04/30/2024 12:33 PM FIELD SALES REPRESENTATIVE Respiratory Rate 18 04/30/2024 12:33 PM FIELD SALES REPRESENTATIVE Oxygen Saturation 98% 04/30/2024 12:33 PM FIELD SALES REPRESENTATIVE Inhaled Oxygen Concentration - - Weight 92.5 kg (204 lb) 04/30/2024 12:33 PM FIELD SALES REPRESENTATIVE Height 162.6 cm (5' 4 ) 04/30/2024 12:33 PM FIELD SALES REPRESENTATIVE Body Mass Index 35.02 04/30/2024 12:33 PM FIELD SALES REPRESENTATIVE Plan of Treatment Health Maintenance Due Date Last Done Comments Albumin Creatinine Ratio, Urine 1953 Colon Cancer Screening-Colonoscopy 1953 Depression Screening 1953 Fall Risk Assessment 1953 Hemoglobin A1C 1953 Hepatitis C Screening 1953 Osteoporosis Screening-Bone Density Scan 1953 eGFR 1953 Dilated Eye Exam 1953 Foot Exam 1953 Lipid Panel 1953 Hepatitis B Screening 08/15/1971 Breast Cancer Screening-Mammogram 11/11/2014 014 Well Visit 65+ 2018 DTaP/Tdap/Td Vaccine (2 - Td or Tdap) 05/17/2020 05/17/2010 Pneumococcal vaccine 65+ (4 of 4 - PCV20 or PCV21) 01/21/2023 01/21/2018, 04/12/2012, 07/17/2011, Additional history exists Covid-19 Vaccine (5 - 2023-2 5 season) 2023 01/28/2021, 01/04/2021, 06/26/2020, Additional history exists Influenza Vaccine (#1) 2023 , 12/28/2020, 12/23/2018, Additional history exists Zoster Vaccine Completed 06/24/2018, 03/13/2018 Procedures Procedure Name Priority Date/Time Associated Diagnosis Comments POC INFLUENZA A/B, COVID-19 ANTIGEN Routine 04/30/2024 12:58 PM FIELD SALES REPRESENTATIVE Body aches Fever and chills POCT RAPID STREP Routine 04/30/2024 12:5 8 PM FIELD SALES REPRESENTATIVE Body aches POC INFLUENZA A/B, COVID-19 ANTIGEN Routine 04/25/2024 11:47 AM FIELD SALES REPRESENTATIVE Laryngitis POCT RAPID STREP Routine 04/25/2024 11:3 9 AM FIELD SALES REPRESENTATIVE Laryngitis POCT URINALYSIS DIPSTICK Routine 03/12/2024 3:30 PM FIELD SALES REPRESENTATIVE UTI symptoms URINE CULTURE Routine 03/12/2024 3:18 PM FIELD SALES REPRESENTATIVE UTI symptoms from Last 3 Months Results * POC Influenza A/B, COVID-19 antigen (04/30/2024 12:58 PM FIELD SALES REPRESENTATIVE) Pathologist [facility] Influenza A Ag, POC Negative Negative [facility] Influenza B Ag, POC Negative Negative [facility] COVID-19 Ag POC Presumptive Negative Presumptive Negative, Invalid [facility] Nasal 04/30/2024 12:5 8 PM FIELD SALES REPRESENTATIVE Leidy Villalpando DISTILLERY MILLER POINT OF CARE TEST ORDERABLES Final Result Performing Organization Address City/[facility]/ZIP Co de Phone Number [facility] [address] [place] [address] [place] [address] * POCT rapid strep A (04/30/2024 12:58 PM FIELD SALES REPRESENTATIVE) [facility] Rapid Strep A, POC Negative Negative [facility] Swab 04/30/2024 12:5 8 PM FIELD SALES REPRESENTATIVE Leidy Villalpando DISTILLERY MILLER POINT OF CARE TEST ORDERABLES Final Result Performing Organization Address [facility] Co de Phone Number [facility] [address] [place] [address] [place] [address] * POC Influenza A/B, COVID-19 antigen (04/25/2024 11:47 AM FIELD SALES REPRESENTATIVE) [facility] Influenza A Ag, POC Negative Negative [facility] Influenza B Ag, POC Negative Negative [facility] COVID-19 Ag POC Presumptive Negative Presumptive Negative, Invalid [facility] Nasal 04/25/2024 11:4 7 AM FIELD SALES REPRESENTATIVE Tatiana Rowell DISTILLERY MILLER POINT OF CARE TEST ORDERABLES Fi nal Result Performing Organization Address [facility] Co de Phone Number [facility] [address] [place] [address] [place] [address] * POCT rapid strep A (04/25/2024 11:39 AM FIELD SALES REPRESENTATIVE) Rapid Strep A, POC Negative Negative Swab 04/25/2024 11:3 9 AM FIELD SALES REPRESENTATIVE Result [facility] Tatiana Rowell NP POINT OF CARE TEST ORDERABLES Fi nal Result * (ABNORMAL) POCT urinalysis dipstick (03/12/2024 3:30 PM FIELD SALES REPRESENTATIVE) Color, Urine, POC Rosalba Clarity, ur, POC Cloudy(A) Clear Glucose, ur, POC Negative Negative MG/DL Bilirubin, ur, POC Negative Negative, Small, Moderate, Large Ketones, ur, POC Negative Negative Specific [place], POC 1.030 1.003 - 1.030 Blood, ur, POC Trace(A) Negative pH, ur, POC 6.5 5.0 - 8.0 Protein, ur, POC Negative Negative Urobilinogen, urine, POC 0.2 0.2 - 1.0 mg/dL Nitrite, ur, POC Negative Negative Leukocytes, ur, POC Trace(A) Negative Lot Number [id number] Urine 03/12/2024 3:30 PM FIELD SALES REPRESENTATIVE Result [facility] Mariela Cardona NP POINT OF CARE TEST ORDERABLES Final Result * Urine culture Urine, clean voided (03/12/2024 3:18 PM FIELD SALES REPRESENTATIVE) Report Final Report: Less than 100,000 colonies/mL (clinically insignificant growth based on current clinical standards) Comment:Testing performed by : [facility], [address] [place]., [address] Organism (CLINICALLY INSIGNIFICANT GROWTH [place] Urine, clean voided 03/12/2024 3:18 PM FIELD SALES REPRESENTATIVE 03/12/2024 8:11 PM FIELD SALES REPRESENTATIVE Narrative [facility] - 03/14/2024 12:19 AM FIELD SALES REPRESENTATIVE Testing performed by [facility] Microbiology Laboratory ([phone]) us Mariela Cardona NP LAB MICROBIOLOGY - GENERAL ORD ERABLES Final Result [facility] [address] [place] [address] from Last 3 Months Insurance MEDICARE [facility] MEDICARE [facility] Care Teams Pattern Chain Maker Supervisor Relationship Specialty [place] [address] [facility] [address] [place] [address] PCP - General Internal Medicine 01/18/21
--- OUTSIDE RECORDS SUMMARY | 2024-05-18 09:11 | XMS_ITS | Encounter Summary ---
Author Organization [facility] Address [address] [place] [address] Care Team Providers Care Market Risk Specialist Name Role Phone Kerwin Quiroga MD Primary Care Provider +1- [phone] Encounter Details Date Type Department Care Team (Latest Contact Info) Description 10/16/2003 Outpatient Historical [facility] Jeremías Torres MD NO ADDRESS ON FILE OTHER GENERAL SYMPTOMS (Primary Dx) Social History Tobacco Use Types Packs/Day Years Used Date Smoking Tobacco: Never Assessed Comments Unknown Sex and Gender Information Value Date Recorded Sex Assigned at Not on file Legal Sex Female 4:29 AM ELEMENTARY ASSISTANT PRINCIPAL Gender Identity Not on file Sexual Orientation Not on file documented as of this encounter Plan of Treatment Upcoming Encounters Date Type Department Care Team (Late st Contact Info) Description 05/20/2024 9:30 AM ELEMENTARY ASSISTANT PRINCIPAL Office Visit [facility] Internal Medicine Phuong Mahoney [address] [facility] [address] [place] [address] [place] [address] [address] [facility] [address] [facility] [place] [address] 05/24/2024 11:45 AM ELEMENTARY ASSISTANT PRINCIPAL Office Visit [facility] Oncology and Hematology - [address] [place] [address] Nelson Cazares MD [address] [facility] [address] [place] [address] 06/07/2024 12:00 PM CDT Appointment [facility] [address] [place] [address] [place] [address] [place] [id number] 06/07/2024 1:05 PM CDT Office Visit [facility] Jazmin Couch [address] [place] [address] [place] [address] [place] [address] 06/20/2024 8:30 AM CDT Office Visit [facility] Internal Medicine Phuong Denzel [address] [place] [address] [place] [address] [place] [address] 06/20/2024 11:15 AM CDT Office Visit [facility] Endocrinology [address] [place] [address] Shanice Llamas MD [address] [place] [address] 12/08/2024 11:00 AM CDT Office Visit [facility] Heart and Vascular - [address] [place] [address] Nam Coto MD [address] [place] [address] documented as of this encounter Visit Diagnoses Diagnosis Other general symptoms(780.99)- Primary Other general symptoms documented in this encounter Additional Health Concerns Infection Onset Date Last Indicated Resolved Time R/O COVID-19 12/28/2019 12/28/2019 12/30/2019 5:45 AM CDT COVID-19 12/28/2019 12/28/2019 01/27/2020 1:16 AM CDT documented as of this encounter Care Teams Market Risk Specialist Relationship Specialty [place] [address] [facility] [address] [place] [address] PCP - General Internal Medicine 02/18/21 documented as of this encounter
--- OUTSIDE RECORDS SUMMARY | 2024-05-18 09:11 | XMS_ITS | Encounter Summary ---
Author Organization [facility] Address [address] [place] [address] Care Team Providers Care Lumber Scaler Name Role Phone Kerwin Quiroga MD Primary Care Provider +1- [phone] Encounter Details Date Type Department Care Team (Late st Contact Info) Description 05/03/2004 Outpatient Historical [facility] [employer] Mayte Walters, [address] [place] [address] Samantha Kwan MD [address] [facility] [address] [address] DIABETES MELLITUS TYPE II-UNCOMPL (CMS/HCC) (Primary Dx) Social History Tobacco Use Types Packs/Day Years Used Date Smoking Tobacco: Never Assessed Comments Unknown Sex and Gender Information Value Date Recorded Sex Assigned at Not on file Legal Sex Female 4:29 AM RIPSAW GRADER Gender Identity Not on file Sexual Orientation Not on file documented as of this encounter Plan of Treatment Upcoming Encounters Date Type Department Care Team (Late st Contact Info) Description 05/20/2024 9:30 AM RIPSAW GRADER Office Visit [facility] Internal Medicine Phuong Mahoney [address] [place] [address] [place] [address] [place] [address] 05/24/2024 11:45 AM RIPSAW GRADER Office Visit [facility] Oncology and Hematology - Par[address] [facility] [address] [place] [address] Nelson Cazares MD [address] [facility] [address] [place] [address] 06/07/2024 12:00 PM CDT Appointment [facility] [address] [place] [address] [place] [address] [facility] [address] [place] [address] 06/07/2024 1:05 PM CDT Office Visit [facility] Breast Surgery [place] [address] [facility] [address] [place] [address] [place] [address] [facility] [address] [place] [address] 06/20/2024 8:30 AM CDT Office Visit [facility] Internal Medicine [address] [place] [address] [place] [address] [place] [address] 06/20/2024 11:15 AM CDT Office Visit [facility] Endocrinology [address] [place] [address] Shanice Llamas MD [address] [place] [address] 12/08/2024 11:00 AM CDT Office Visit [facility] - [facility] [address] [place] [address] Nam Coto MD [address] [facility] [address] [place] [address] documented as of this encounter Visit Diagnoses Diagnosis Type II or unspecified type diabetes mellitus without mention of complication, not stated as uncontrolled (CMS/[facility])- Primary Type II or unspecified type diabetes mellitus without mention of complication, not stated as uncontrolled documented in this encounter Additional Health Concerns Infection Onset Date Last Indicated Resolved Time R/O COVID-12/28/2019 12/28/2019 12/30/2019 5:45 AM CDT COVID-12/28/2019 12/28/2019 01/27/2020 1:16 AM CDT documented as of this encounter Care Teams Lumber Scaler Relationship Specialty [place] [address] [facility] [address] [place] [address] PCP - General Internal Medicine 02/18/21 documented as of this encounter
--- OUTSIDE RECORDS SUMMARY | 2024-05-18 09:11 | XMS_ITS | Encounter Summary ---
Author Organization [facility] Address [address] [place] [address] Care Team Providers Care Wet Mixer Name Role Phone Kerwin Quiroga MD Primary Care Provider +1- [phone] Encounter Details Date Type Department Care Team (Late st Contact Info) Description 03/08/2007 Outpatient Historical [facility] Internal Medicine Phuong Denzel [address] [place] [address] Saturnino ms, MD Yasemin Social History Tobacco Use Types Packs/Day Years Used Date Smoking Tobacco: Never Assessed Comments Unknown Sex and Gender Information Value Date Recorded Sex Assigned at Not on file Legal Sex Female 4:29 AM SAND MIXER MACHINE Gender Identity Not on file Sexual Orientation Not on file documented as of this encounter Plan of Treatment Upcoming Encounters Date Type Department Care Team (Late st Contact Info) Description 05/20/2024 9:30 AM SAND MIXER MACHINE Office Visit [facility] Internal Medicine Phuong Mahoney [address] [place] [address] [place] [address] [place] [address] 05/24/2024 11:45 AM SAND MIXER MACHINE Office Visit [facility] Oncology and Hematology - [address] [place] [address] Nelson Cazares MD [address] [facility] [address] [place] [address] 06/07/2024 12:00 PM CDT Appointment [facility] [place] [address] [place] [address] [place] [address] [place] [address] 06/07/2024 1:05 PM CDT Office Visit [facility] Breast Surgery [place] [address] [place] [address] [place] [address] [place] [address] 06/20/2024 8:30 AM CDT Office Visit [facility] Internal Medicine [address] [place] [address] [place] [address] [place] [address] 06/20/2024 11:15 AM CDT Office Visit [facility] Endocrinology [address] [place] [address] Shanice Llamas MD [address] [place] [address] 12/08/2024 11:00 AM CDT Office Visit [facility] Heart and Vascular - [facility] [address] [place] [address] Nam Coto MD [address] [facility] [address] [place] [address] documented as of this encounter Visit Diagnoses Not on filedocumented in this encounter Additional Health Concerns Infection Onset Date Last Indicated Resolved Time R/O COVID-19 12/28/2019 12/28/2019 12/30/2019 5:45 AM CDT COVID-19 12/28/2019 12/28/2019 01/27/2020 1:16 AM CDT documented as of this encounter Care Teams Wet Mixer Relationship Specialty [place] [address] [facility] [address] [place] [address] PCP - General Internal Medicine 02/18/21 documented as of this encounter
--- OUTSIDE RECORDS SUMMARY | 2024-05-18 09:12 | XMS_ITS | Encounter Summary ---
Author Organization [facility] Address [address] [place] [address] Care Team Providers Care Machine Lead Burner Name Role Phone Kerwin Quiroga MD Primary Care Provider +1- [phone] Encounter Details Date Type Department Care Team (Latest Contact Info) Description 10/15/2001 Outpatient Historical HIS [facility] Jeremías Torres MD NO ADDRESS ON FILE BENIGN HYPERTENSION (Primary Dx) Social History Tobacco Use Types Packs/Day Years Used Date Smoking Tobacco: Never Assessed Comments Unknown Sex and Gender Information Value Date Recorded Sex Assigned at Not on file Legal Sex Female 4:29 AM RESIDENT CARE SPEC Gender Identity Not on file Sexual Orientation Not on file documented as of this encounter Plan of Treatment Upcoming Encounters Date Type Department Care Team (Late st Contact Info) Description 05/20/2024 9:30 AM RESIDENT CARE SPEC Office Visit [facility] Internal Medicine Phuong Mahoney [address] [facility] [address] [place] [address] [place] [address] [address] [facility] [address] [facility] [place] [address] 05/24/2024 11:45 AM RESIDENT CARE SPEC Office Visit [facility] Oncology and Hematology - [address] [place] [address] Nelson Cazares MD [address] [facility] [address] [place] [address] 06/07/2024 12:00 PM CDT Appointment [facility] [address] [place] [address] [place] [address] [place] [id number] 06/07/2024 1:05 PM CDT Office Visit [facility] Breast Surgery Jazmin Couch [address] [place] [address] [place] [address] [place] [address] 06/20/2024 8:30 AM CDT Office Visit [facility] Internal Medicine Phuong Denzel [address] [facility] [address] [place] [address] [place] [address] [place] [address] 06/20/2024 11:15 AM CDT Office Visit [facility] Endocrinology [address] [place] [address] Shanice Llamas MD [address] [facility] [address] [place] [address] 12/08/2024 11:00 AM CDT Office Visit [facility] Heart and Vascular - [facility] [address] [place] [address] Nam Coto MD [address] [facility] [address] [place] [address] documented as of this encounter Visit Diagnoses Diagnosis Essential hypertension, benign- Primary documented in this encounter Additional Health Concerns Infection Onset Date Last Indicated Resolved Time R/O COVID-19 12/28/2019 12/28/2019 12/30/2019 5:45 AM CDT COVID-19 12/28/2019 12/28/2019 01/27/2020 1:16 AM CDT documented as of this encounter Care Teams Machine Lead Burner Relationship Specialty [place] [address] [facility] [address] [place] [address] PCP - General Internal Medicine 02/18/21 documented as of this encounter
--- OUTSIDE RECORDS SUMMARY | 2024-05-18 09:12 | XMS_ITS | Encounter Summary ---
Author Organization [facility] Address [address] [place] [address] Care Team Providers Care Speeder Frame Tender Name Role Phone Kerwin Quiroga MD Primary Care Provider +1- [phone] Encounter Details Date Type Department Care Team (Late st Contact Info) Description 02/10/2000 Outpatient Historical HIS [facility] INTERNISTS Jeremías Farias MD NO ADDRESS ON FILE Social History Tobacco Use Types Packs/Day Years Used Date Smoking Tobacco: Never Assessed Comments Unknown Sex and Gender Information Value Date Recorded Sex Assigned at Not on file Legal Sex Female 4:29 AM EDGING MACHINE CATCHER Gender Identity Not on file Sexual Orientation Not on file documented as of this encounter Plan of Treatment Upcoming Encounters Date Type Department Care Team (Late st Contact Info) Description 05/20/2024 9:30 AM EDGING MACHINE CATCHER Office Visit [facility] Internal Medicine Phuong Denzel [address] [place] [address] [place] [address] [address] [facility] [place] [address] 05/24/2024 11:45 AM EDGING MACHINE CATCHER Office Visit [facility] Oncology and Hematology - Paras [address] [facility] [address] [place] [address] Nelson Cazares MD [address] [facility] [address] [place] [address] 06/07/2024 12:00 PM CDT Appointment [facility] Jazmin [address] [place] [address] [place] [address] [place] [address] 06/07/2024 1:05 PM CDT Office Visit [facility] Breast Surgery Jazmin Couch [address] [place] [address] [place] [address] [place] [address] 06/20/2024 8:30 AM CDT Office Visit [facility] Internal Medicine Phuong Denzel [address] [facility] [address] [place] [address] [place] [address] [place] [address] 06/20/2024 11:15 AM CDT Office Visit [facility] Endocrinology [address] [place] [address] Shanice Llamas MD [address] [place] [address] 12/08/2024 11:00 AM CDT Office Visit [facility] Heart and Vascular - [facility] [address] [facility] [address] [facility] [address] [place] [address] Nam Coto MD [address] [facility] [address] [place] [address] documented as of this encounter Visit Diagnoses Not on filedocumented in this encounter Additional Health Concerns Infection Onset Date Last Indicated Resolved Time R/O COVID-19 12/28/2019 12/28/2019 12/30/2019 5:45 AM CDT COVID-19 12/28/2019 12/28/2019 01/27/2020 1:16 AM CDT documented as of this encounter Care Teams Speeder Frame Tender Relationship Specialty [place] [address] [facility] [address] [place] [address] PCP - General Internal Medicine 02/18/21 documented as of this encounter
--- OUTSIDE RECORDS SUMMARY | 2024-05-18 09:12 | XMS_ITS | Encounter Summary ---
Author Organization [facility] Address [address] [place] [address] Care Team Providers Care Artists' Booking Representative Name Role Phone Kerwin Quiroga MD Primary Care Provider +1- [phone] Encounter Details Date Type Department Care Team (Late st Contact Info) Description 02/13/2005 Outpatient Historical HIS G [facility] INTERNISTS Jeremías Farias MD NO ADDRESS ON FILE Social History Tobacco Use Types Packs/Day Years Used Date Smoking Tobacco: Never Assessed Comments Unknown Sex and Gender Information Value Date Recorded Sex Assigned at Not on file Legal Sex Female 4:29 AM GENERAL CARGO CLERK Gender Identity Not on file Sexual Orientation Not on file documented as of this encounter Plan of Treatment Upcoming Encounters Date Type Department Care Team (Late st Contact Info) Description 05/20/2024 9:30 AM GENERAL CARGO CLERK Office Visit [facility] Internal Medicine Phuong Denzel [address] [place] [address] [place] [address] [address] [facility] [place] [address] 05/24/2024 11:45 AM GENERAL CARGO CLERK Office Visit [facility] Oncology and Hematology - Paras [address] [facility] [address] [place] [address] Nelson Cazares MD [address] [facility] [address] [place] [address] 06/07/2024 12:00 PM CDT Appointment [facility] [address] [place] [address] [place] [address] [place] [phone] 06/07/2024 1:05 PM CDT Office Visit [facility] Breast Surgery Jazmin Couch [address] [place] [address] [place] [address] [place] [address] 06/20/2024 8:30 AM CDT Office Visit [facility] Internal Medicine Phuong Denzel [address] [facility] [address] [place] [address] [place] [address] [place] [address] 06/20/2024 11:15 AM CDT Office Visit [facility] Endocrinology [address] [place] [address] Shanice Llamas MD [address] [place] [address] 12/08/2024 11:00 AM CDT Office Visit [facility] Heart and Vascular - [facility] [address] [place] [address] Nam Coto MD [address] [facility] [address] [place] [address] documented as of this encounter Visit Diagnoses Not on filedocumented in this encounter Additional Health Concerns Infection Onset Date Last Indicated Resolved Time R/O COVID-19 12/28/2019 12/28/2019 12/30/2019 5:45 AM CDT COVID-19 12/28/2019 12/28/2019 01/27/2020 1:16 AM CDT documented as of this encounter Care Teams Artists' Booking Representative Relationship Specialty [place] [address] [facility] [address] [place] [address] PCP - General Internal Medicine 02/18/21 documented as of this encounter
--- OUTSIDE RECORDS SUMMARY | 2024-05-18 09:12 | XMS_ITS | Encounter Summary ---
Author Organization [facility] Address [address] [place] [address] Care Team Providers Care Rag Washer Name Role Phone Kerwin Quiroga MD Primary Care Provider +1- [phone] Encounter Details Date Type Department Care Team (Latest Contact Info) Description 10/24/1999 Outpatient Historical HIS [facility] Jeremías Torres MD NO ADDRESS ON FILE Essential hypertension, benign (Primary Dx) Social History Tobacco Use Types Packs/Day Years Used Date Smoking Tobacco: Never Assessed Comments Unknown Sex and Gender Information Value Date Recorded Sex Assigned at Not on file Legal Sex Female 4:29 AM PARTS CLEANER Gender Identity Not on file Sexual Orientation Not on file documented as of this encounter Plan of Treatment Upcoming Encounters Date Type Department Care Team (Late st Contact Info) Description 05/20/2024 9:30 AM PARTS CLEANER Office Visit [facility] Internal Medicine Phuong Mahoney [address] [facility] [address] [place] [address] [place] [address] [address] [facility] [address] [place] [address] 05/24/2024 11:45 AM PARTS CLEANER Office Visit [facility] Oncology and Hematology - Par[address] [place] [address] Nelson Cazares MD [address] [facility] [address] [place] [address] 06/07/2024 12:[address] [facility] [address] [place] [address] [place] [address] [place] [phone] 06/07/2024 1:05 PM CDT Office Visit [facility] Breast Surgery Jazmin Couch [address] [place] [address] [place] [address] [place] [address] 06/20/2024 8:30 AM CDT Office Visit [facility] Internal Medicine hPuong Denzel [address] [place] [address] [place] [address] [place] [address] 06/20/2024 11:15 AM CDT Office Visit [facility] Endocrinology [address] [place] [address] Shanice Llamas MD [address] [place] [address] 12/08/2024 11:00 AM CDT Office Visit [facility] Heart and Vascular - [facility] [address] [place] [address] Nam Coto MD [address] [facility] [address] [facility] [address] [place] [address] documented as of this encounter Visit Diagnoses Diagnosis Essential hypertension, benign- Primary documented in this encounter Additional Health Concerns Infection Onset Date Last Indicated Resolved Time R/O COVID-19 12/28/2019 12/28/2019 12/30/2019 5:45 AM CDT COVID-19 12/28/2019 12/28/2019 01/27/2020 1:16 AM CDT documented as of this encounter Care Teams Rag Washer Relationship Specialty [place] [address] [facility] [address] [place] [phone] PCP - General Internal Medicine 02/18/21 documented as of this encounter
--- OUTSIDE RECORDS SUMMARY | 2024-05-18 09:12 | XMS_ITS | Encounter Summary ---
Author Organization [facility] Address [address] [place] [address] Care Team Providers Care Open Hearth Worker Name Role Phone Kerwin Quiroga MD Primary Care Provider +1- [phone] Encounter Details Date Type Department Care Team (Late st Contact Info) Description 12/20/2001 Outpatient Historical HIS [facility] Hussein Abdi MD NO ADDRESS ON FILE REFLUX ESOPHAGITIS (Primary Dx) Social History Tobacco Use Types Packs/Day Years Used Date Smoking Tobacco: Never Assessed Comments Unknown Sex and Gender Information Value Date Recorded Sex Assigned at Not on file Legal Sex Female 4:29 AM CORE STICKER Gender Identity Not on file Sexual Orientation Not on file documented as of this encounter Plan of Treatment Upcoming Encounters Date Type Department Care Team (Late st Contact Info) Description 05/20/2024 9:30 AM CORE STICKER Office Visit [facility] Internal Medicine Phuong Denzel [address] [facility] [address] [place] [address] [place] [address] [place] [facility] [address] [facility] [place] [address] 05/24/2024 11:45 AM CORE STICKER Office Visit [facility] Oncology and Hematology - Paras [address] [place] [address] Nelson Cazares MD [address] [facility] [address] [place] [address] 06/07/2024 12:00 PM CDT Appointment [facility] [address]azmin [address] [place] [address] [place] [address] [place] [address] 06/07/2024 1:05 PM CDT Office Visit [facility] Breast Surgery Jazmin Couch [address] [place] [address] [place] [address] [place] [address] 06/20/2024 8:30 AM CDT Office Visit [facility] Internal Medicine Phuong Denzel [address] [facility] [address] [place] [address] [place] [address] [place] [address] 06/20/2024 11:15 AM CDT Office Visit [facility] Endocrinology [address] [place] [address] Shanice Llamas MD [address] [facility] [address] [facility] [address] [place] [address] 12/08/2024 11:00 AM CDT Office Visit [facility] Heart and Vascular - [facility] [address] [facility] [address] [place] [address] Nam Coto MD [address] [facility] [address] [place] [address] documented as of this encounter Visit Diagnoses Diagnosis Reflux esophagitis- Primary documented in this encounter Additional Health Concerns Infection Onset Date Last Indicated Resolved Time R/O COVID-19 12/28/2019 12/28/2019 12/30/2019 5:45 AM CDT COVID-19 12/28/2019 12/28/2019 01/27/2020 1:16 AM CDT documented as of this encounter Care Teams Open Hearth Worker Relationship Specialty [place] [address] [facility] [address] [place] [address] PCP - General Internal Medicine 02/18/21 documented as of this encounter
--- OUTSIDE RECORDS SUMMARY | 2024-05-18 09:12 | XMS_ITS | Encounter Summary ---
Author Organization [facility] Address [address] [place] [address] Care Team Providers Care Lens Hardener Name Role Phone Kerwin Quiroga MD Primary Care Provider +1- [phone] Encounter Details Date Type Department Care Team (Late st Contact Info) Description 10/24/1999 Outpatient Historical HIS [facility] INTERNISTS Jeremías Farias MD NO ADDRESS ON FILE Social History Tobacco Use Types Packs/Day Years Used Date Smoking Tobacco: Never Assessed Comments Unknown Sex and Gender Information Value Date Recorded Sex Assigned at Not on file Legal Sex Female 4:29 AM BUSINESS DEVELOPMENT ASSOCIATE Gender Identity Not on file Sexual Orientation Not on file documented as of this encounter Plan of Treatment Upcoming Encounters Date Type Department Care Team (Late st Contact Info) Description 05/20/2024 9:30 AM BUSINESS DEVELOPMENT ASSOCIATE [facility] Medicine Phuong Denzel [address] [place] [address] [place] [address] [address] [facility] [place] [address] 05/24/2024 11:45 AM BUSINESS DEVELOPMENT ASSOCIATE [facility] Oncology and Hematology - Paras [address] [facility] [address] [place] [address] Nelson Cazares MD [address] [facility] [address] [place] [address] 06/07/2024 12:00 PM CDT Appointment [facility] [address] [place] [address] [place] [address] [place] [address] 06/07/2024 1:05 PM CDT Office Visit [facility] Breast Surgery Jazmin Couch [address] [place] [address] [place] [address] [place] [address] 06/20/2024 8:30 AM CDT [facility] Visit [facility] Internal Medicine Phuong Denzel [address] [address] [facility] [address] [place] [address] [place] [address] [place] [address] 06/20/2024 11:15 AM CDT [facility] Endocrinology [address] [place] [address] Shanice Llamas MD [address] [place] [address] 12/08/2024 11:00 AM CDT [facility] Heart and Vascular - [facility] [address] [facility] [address] [place] [address] Nam Coto MD [address] [facility] [address] [place] [address] documented as of this encounter Visit Diagnoses Not on filedocumented in this encounter Additional Health Concerns Infection Onset Date Last Indicated Resolved Time R/O COVID-19 12/28/2019 12/28/2019 12/30/2019 5:45 AM CDT COVID-19 12/28/2019 12/28/2019 01/27/2020 1:16 AM CDT documented as of this encounter Care Teams Lens Hardener Relationship Specialty [place] [address] [facility] [address] [place] [address] PCP - General Internal Medicine 02/18/21 documented as of this encounter
--- OUTSIDE RECORDS SUMMARY | 2024-05-18 09:12 | XMS_ITS | Encounter Summary ---
Author Organization [facility] Address [address] [place] [address] Care Team Providers Care Tie Hacker Name Role Phone Kerwin Quiroga MD Primary Care Provider +1- [phone] Encounter Details Date Type Department Care Team (Latest Contact Info) Description 05/11/2000 Outpatient Historical HIS [facility] Jeremías Torres MD NO ADDRESS ON FILE Type II or unspecified type diabetes mellitus without mention of complication, not stated as uncontrolled (CMS/HCC) (Primary Dx) Social History Tobacco Use Types Packs/Day Years Used Date Smoking Tobacco: Never Assessed Comments Unknown Sex and Gender Information Value Date Recorded Sex Assigned at Not on file Legal Sex Female 4:29 AM RETAIL PARTS PRO Gender Identity Not on file Sexual Orientation Not on file documented as of this encounter Plan of Treatment Upcoming Encounters Date Type Department Care Team (Late st Contact Info) Description 05/20/2024 9:30 AM RETAIL PARTS PRO Office Visit [facility] Internal Medicine Phuong Mahoney [address] [facility] [address] [place] [address] [place] [address] [address] [facility] [address] [facility] [place] [address] 05/24/2024 11:45 AM RETAIL PARTS PRO Office Visit [facility] Oncology and Hematology - Paras [address] [place] [address] Nelson Cazares MD [address] [facility] [address] [place] [address] 06/07/2024 12:00 PM CDT Appointment [facility] Breast [place] Jazmin [address] [place] [address] [place] [address] [place] [phone] 06/07/2024 1:05 PM CDT Office Visit [facility] Breast Surgery Jazmin Couch [address] [place] [address] [place] [address] [place] [address] 06/20/2024 8:30 AM CDT Office Visit [facility] Internal Medicine Phuong Mahoney [address] [place] [address] [place] [address] [place] [address] 06/20/2024 11:15 AM CDT Office Visit [facility] Endocrinology [address] [place] [address] Shanice Llamas MD [address] [facility] [address] [place] [address] 12/08/2024 11:00 AM CDT Office Visit [facility] Heart and Vascular - [facility] [address] [employer] [address] [address] [place] [address] Nam Coto MD [address] [facility] [address] [place] [address] documented as of this encounter Visit Diagnoses Diagnosis Type II or unspecified type diabetes mellitus without mention of complication, not stated as uncontrolled ([facility] Primary Type II or unspecified type diabetes mellitus without mention of complication, not stated as uncontrolled documented in this encounter Additional Health Concerns Infection Onset Date Last Indicated Resolved Time R/O COVID-12/28/2019 12/28/2019 12/30/2019 5:45 AM CDT COVID-12/28/2019 12/28/2019 01/27/2020 1:16 AM CDT documented as of this encounter Care Teams Tie Hacker Relationship Specialty [place] [address] [place] [phone] PCP - General Internal Medicine 02/18/21 documented as of this encounter
--- OUTSIDE RECORDS SUMMARY | 2024-05-18 09:12 | XMS_ITS | Encounter Summary ---
Author Organization [facility] Address [address] [place] [address] Care Team Providers Care Adoption Counselor Name Role Phone Kerwin Quiroga MD Primary Care Provider +1- [phone] Encounter Details Date Type Department Care Team (Latest Contact Info) Description 03/04/2000 Outpatient Historical [facility] Yariel Mathew MD Derangement of lateral meniscus, unspecified (Primary Dx) Social History Tobacco Use Types Packs/Day Years Used Date Smoking Tobacco: Never Assessed Comments Unknown Sex and Gender Information Value Date Recorded Sex Assigned at Not on file Legal Sex Female 4:29 AM BOOKKEEPING CLERK Gender Identity Not on file Sexual Orientation Not on file documented as of this encounter Plan of Treatment Upcoming Encounters Date Type Department Care Team (Late st Contact Info) Description 05/20/2024 9:30 AM BOOKKEEPING CLERK Office Visit [facility] Internal Medicine Phuong Mahoney [address] [facility] [address] [place] [address] [place] [address] [address] [place] [address] 05/24/2024 11:45 AM BOOKKEEPING CLERK Office Visit [facility] Oncology and Hematology - Par[address] [place] [address] Nelson Cazares MD [address] [facility] [address] [place] [address] 06/07/2024 12:00 PM CDT Appointment [facility] Jazmin [address] [place] [address] [place] [address] [place] [address] 06/07/2024 1:05 PM CDT Office Visit [facility] Breast Surgery Jazmin Couch [address] [place] [address] [place] [address] [facility] [address] [place] [address] 06/20/2024 8:30 AM CDT Office Visit [facility] Internal Medicine Phuong Mahoney [address] [facility] [address] [place] [address] [place] [address] [place] [address] 06/20/2024 11:15 AM CDT Office Visit [facility] Endocrinology [address] [place] [address] Shanice Llamas MD [address] [address] [place] [address] 12/08/2024 11:00 AM CDT Office Visit [facility] Heart and Vascular - [address] [place] [address] Nam Coto MD [address] [facility] [address] [place] [address] documented as of this encounter Visit Diagnoses Diagnosis Derangement of lateral meniscus, unspecified- Primary documented in this encounter Additional Health Concerns Infection Onset Date Last Indicated Resolved Time R/O COVID-19 12/28/2019 12/28/2019 12/30/2019 5:45 AM CDT COVID-19 12/28/2019 12/28/2019 01/27/2020 1:16 AM CDT documented as of this encounter Care Teams Adoption Counselor Relationship Specialty [place] [address] [facility] [address] [place] [phone] PCP - General Internal Medicine 02/18/21 documented as of this encounter
--- OUTSIDE RECORDS SUMMARY | 2024-05-18 09:12 | XMS_ITS | Encounter Summary ---
Author Organization [facility] Address [address] [place] [address] Care Team Providers Care Pipe Line Inspector Name Role Phone Kerwin Quiroga MD Primary Care Provider +1- [phone] Encounter Details Date Type Department Care Team (Late st Contact Info) Description 04/06/2006 Outpatient Historical [facility] INTERNISTS Jeremías Farias MD NO ADDRESS ON FILE Social History Tobacco Use Types Packs/Day Years Used Date Smoking Tobacco: Never Assessed Comments Unknown Sex and Gender Information Value Date Recorded Sex Assigned at Not on file Legal Sex Female 4:29 AM PSYCHOLOGIST PERSONNEL Gender Identity Not on file Sexual Orientation Not on file documented as of this encounter Plan of Treatment Upcoming Encounters Date Type Department Care Team (Late st Contact Info) Description 05/20/2024 9:30 AM PSYCHOLOGIST PERSONNEL Office Visit [facility] Internal Medicine Phuong Denzel [address] [place] [address] [place] [address] [address] [facility] [place] [address] 05/24/2024 11:45 AM PSYCHOLOGIST PERSONNEL Office Visit [facility] Oncology and Hematology - Paras [address] [facility] [address] [place] [address] Nelson Cazares MD [address] [facility] [address] [place] [address] 06/07/2024 12:00 PM CDT Appointment [facility] [address] [address] [place] [address] [place] [address] [place] [address] 06/07/2024 1:05 PM CDT Office Visit [facility] Breast Surgery Jazmin Couch [address] [place] [address] [place] [address] [place] [address] 06/20/2024 8:30 AM CDT Office Visit [facility] Internal Medicine Phuong Denzel [address] [facility] [address] [place] [address] [place] [address] [place] [address] 06/20/2024 11:15 AM CDT Office Visit [facility] Endocrinology [address] [address] [place] [address] Shanice Llamas MD [address] [facility] [address] [place] [address] 12/08/2024 11:00 AM CDT Office Visit [facility] Heart and Vascular - [facility] [address] [place] [address] Nam Coto MD [address] [facility] [address] [place] [address] documented as of this encounter Visit Diagnoses Not on filedocumented in this encounter Additional Health Concerns Infection Onset Date Last Indicated Resolved Time R/O COVID-19 12/28/2019 12/28/2019 12/30/2019 5:45 AM CDT COVID-19 12/28/2019 12/28/2019 01/27/2020 1:16 AM CDT documented as of this encounter Care Teams Pipe Line Inspector Relationship Specialty [place] [address] [facility] [address] [place] [address] PCP - General Internal Medicine 02/18/21 documented as of this encounter
--- OUTSIDE RECORDS SUMMARY | 2024-05-18 09:12 | XMS_ITS | Encounter Summary ---
Author Organization [facility] Address [address] [place] [address] Care Team Providers Care Quality Associate Name Role Phone Kerwin Quiroga MD Primary Care Provider +1- [phone] Encounter Details Date Type Department Care Team (Late st Contact Info) Description 02/13/2005 Outpatient Historical HIS LAB, [address] Jeremías Farias MD NO ADDRESS ON FILE Social History Tobacco Use Types Packs/Day Years Used Date Smoking Tobacco: Never Assessed Comments Unknown Sex and Gender Information Value Date Recorded Sex Assigned at Not on file Legal Sex Female 4:29 AM SCHOOL PATROL Gender Identity Not on file Sexual Orientation Not on file documented as of this encounter Plan of Treatment Upcoming Encounters Date Type Department Care Team (Late st Contact Info) Description 05/20/2024 9:30 AM SCHOOL PATROL Office Visit [facility] Internal Medicine Phuong Denzel [address] [facility] [address] [place] [address] [place] [address] [address] [facility] [address] [facility] [place] [address] 05/24/2024 11:45 AM SCHOOL PATROL Office Visit [facility] Oncology and Hematology - Paras [address] [place] [address] Nelson Cazares MD [address] [facility] [address] [place] [address] 06/07/2024 12:00 PM CDT Appointment [facility] [address] [place] [address] [place] [address] [place] [address] 06/07/2024 1:05 PM CDT Office Visit [facility] Breast Surgery Jazmin Couch [address] [place] [address] [place] [address] [place] [address] 06/20/2024 8:30 AM CDT Office Visit [facility] Internal Medicine Phuong Denzel [address] [facility] [address] [place] [address] [place] [address] [place] [address] 06/20/2024 11:15 AM CDT Office Visit [facility] Endocrinology [address] [place] [address] Shanice Llamas MD [address] [facility] [address] [place] [address] 12/08/2024 11:00 AM CDT Office Visit [facility] Heart and Vascular - [facility] [address] [place] [address] Nam Coto MD [address] [facility] [address] [place] [address] documented as of this encounter Procedures Procedure Name Priority Date/Time Associated Diagnosis Comments CBC WITH DIFFERENTIAL Routine 02/13/2005 1:35 PM SCHOOL PATROL CBC WITH DIFFERENTIAL Routine 02/13/2005 1:35 PM SCHOOL PATROL URINALYSIS W/REFLEX MICROSCOPIC Routine 02/13/2005 1:35 PM SCHOOL PATROL SEDIMENTATION RATE Routine 02/13/2005 1: 35 PM SCHOOL PATROL COMPREHENSIVE METABOLIC PANEL Routine 02/13/2005 1:35 PM SCHOOL PATROL documented in this encounter Results * URINALYSIS (02/13/2005 1:35 PM SCHOOL PATROL) COLOR UA Yellow INTERFACE SYSTEM CLARITY UA Clear Clear INTERFACE SYSTEM SPECIFIC GRAVITY UA 1.010 1.001 - 1.035 INTERFACE SYSTEM PH UA 5.0 5.0 - 8.0 INTERFACE SYSTEM LEUKOCYTE ESTERASE UA Negative Negative INTERFACE SYSTEM NITRITE UA Negative Negative INTERFACE SYSTEM PROTEIN UA Negative Negative INTERFACE SYSTEM GLUCOSE UA Negative Negative INTERFACE SYSTEM KETONES UA Negative Negative INTERFACE SYSTEM UROBILINOGEN UA <1 <1 mg/dL INTE RFACE SYSTEM BILIRUBIN UA Negative Negative INTERFA CE SYSTEM BLOOD UA Negative Negative INTERFACE SYSTEM 02/13/2005 1:35 PM SCHOOL PATROL Jeremías Farias MD URINE ORDERABLES Final Result INTERFACE SYSTEM Refer to clinic/hospital department * (ABNORMAL) CBC WITH DIFFERENTIAL (02/13/2005 1:35 PM SCHOOL PATROL) NEUTROPHILS 67 45 - 70 % INTERFAC E SYSTEM LYMPHOCYTES 22 16 - 45 % INTERFAC E SYSTEM MONOCYTES 8 3 - 13 % INTERFACE SYSTEM EOSINOPHILS 2 0 - 7 % INTERFAC E SYSTEM BASOPHILS 1 0 - 2 % INTERFACE SYSTEM NEUTROPHIL ABSOLUTE 7.34(H) 1.90 - 7.00 K/uL INTERFACE SYSTEM LYMPHOCYTE ABSOLUTE 2.41 0.70 - 4.50 K/uL INTERFACE SYSTEM MONOCYTE ABSOLUTE 0.89 0.10 - 1.30 K/uL INTERFACE SYSTEM EOSINOPHIL ABSOLUTE 0.19 0.00 - 0.70 K/uL INTERFACE SYSTEM BASOPHILS ABSOLUTE 0.07 0.00 - 0.20 K/uL INTERFACE SYSTEM 02/13/2005 1:35 PM SCHOOL PATROL Jeremías Farias MD HEMATOLOGY ORDERABLES Final Re sult Performing Organization Address [facility] de Phone Number INTERFACE SYSTEM Refer to clinic/hospital department * (ABNORMAL) CBC WITH DIFFERENTIAL (02/13/2005 1:35 PM SCHOOL PATROL) WBC 10.9(H) 4.0 - 9.8 K/uL INTERFACE SYSTEM RBC 5.39(H) 3.90 - 4.90 M/uL INTERFACE SYSTEM HEMOGLOBIN 16.1(H) 11.8 - 14.8 g/dL INTERFACE SYSTEM HEMATOCRIT 46.8(H) 35.5 - 44.0 % INTERFACE SYSTEM MCV 86.8 82.0 - 99.0 fL INTERFACE SYSTEM MCH 29.9 27.2 - 32.6 pg INTERFACE SYSTEM MCHC 34.4 31.5 - 35.5 % INTERFACE SYSTEM RDW 13.1 11.5 - 14.5 % INTERFACE SYSTEM RDW-STDEV 41.3 37.1 - 48.7 fL INTERFACE SYSTEM PLATELETS 273 140 - 350 K/uL INTERFACE SYSTEM Comment:WBC and Platelets ve rified by smear review. MPV 11.8 9.3 - 12.4 fL INTERFACE SYSTEM 02/13/2005 1:35 PM SCHOOL PATROL us Jeremías Farias MD HEMATOLOGY ORDERABLES Final Re [facility] Performing Organization Address [facility] Phone Number INTERFACE SYSTEM Refer to clinic/hospital department * SEDIMENTATION RATE (02/13/2005 1:35 PM SCHOOL PATROL) ESR (SEDIMENTATION RATE) 10 0 - 30 mm/hr INTERFACE SYSTEM 02/13/2005 1:35 PM SCHOOL PATROL us Jeremías Farias MD HEMATOLOGY ORDERABLES Final Re sult Performing Organization Address [facility] Co de Phone Number INTERFACE SYSTEM Refer to clinic/hospital department * (ABNORMAL) COMPREHENSIVE METABOLIC PANEL (02/13/2005 1:35 PM SCHOOL PATROL) GLUCOSE 144(H) 65 - 109 mg/dL INTERFACE SYSTEM CREATININE 0.7 0.4 - 1.2 mg/dL INTERFACE SYSTEM CALCIUM 9.6 8.6 - 10.2 mg/dL INTERFACE SYSTEM AST 25 12 - 32 U/L INTERFACE SYSTEM ALKALINE PHOSPHATASE 72 35 - 104 U/L INTERFACE SYSTEM BILIRUBIN TOTAL 0.3 0.2 - 1.0 mg/dL INTERFACE SYSTEM ALBUMIN 4.2 3.4 - 4.8 g/dL INTERFACE SYSTEM TOTAL PROTEIN 7.5 6.3 - 8.6 g/dL INTERFACE SYSTEM ALT 39(H) 0 - 31 U/L INTERFACE SYSTEM BUN 13 6 - 20 mg/dL INTERFACE SYSTEM SODIUM 136 135 - 145 mmol/L INTERFACE SYSTEM POTASSIUM 4.2 3.5 - 4.9 mmol/L INTERFACE SYSTEM CHLORIDE 99 96 - 108 mmol/L INTERFACE SYSTEM CO2 25 22 - 30 mmol/L INTERFACE SYSTEM 02/13/2005 1:35 PM SCHOOL PATROL us Jeremías Farias MD CHEMISTRY ORDERABLES Final Res ult INTERFACE SYSTEM Refer to clinic/hospital department documented in this encounter Visit Diagnoses Not on filedocumented in this encounter Additional Health Concerns Infection Onset Date Last Indicated Resolved Time R/O COVID-19 12/28/2019 12/28/2019 12/30/2019 5:45 AM CDT COVID-19 12/28/2019 12/28/2019 01/27/2020 1:16 AM CDT documented as of this encounter Care Teams Quality Associate Relationship Specialty [place] [address] [place] [phone] PCP - General Internal Medicine 02/18/21 documented as of this encounter
--- OUTSIDE RECORDS SUMMARY | 2024-05-18 09:12 | XMS_ITS | Encounter Summary ---
Author Organization [facility] Address [address] [place] [address] Care Team Providers Care Military Lawyer Name Role Phone Kerwin Quiroga MD Primary Care Provider +1- [phone] Encounter Details Date Type Department Care Team (Late st Contact Info) Description 02/24/2005 Outpatient Historical [facility] MRI DEPT Jeremías Farias MD NO ADDRESS ON FILE HEADACHE (Primary Dx) Social History Tobacco Use Types Packs/Day Years Used Date Smoking Tobacco: Never Assessed Comments Unknown Sex and Gender Information Value Date Recorded Sex Assigned at Not on file Legal Sex Female 4:29 AM FIELD CROP FARMER Gender Identity Not on file Sexual Orientation Not on file documented as of this encounter Plan of Treatment Upcoming Encounters Date Type Department Care Team (Late st Contact Info) Description 05/20/2024 9:30 AM FIELD CROP FARMER Office Visit [facility] Internal Medicine Phuong Denzel [address] [facility] [address] [place] [address] [place] [address] [facility] [address] [facility] [place] [address] 05/24/2024 11:45 AM FIELD CROP FARMER Office Visit [facility] Oncology and Hematology - Paras [address] [facility] [address] [place] [address] Nelson Cazares MD [address] [facility] [address] [place] [address] 06/07/2024 12:00 PM CDT Appointment [facility] Jazmin [address] [address] [place] [address] [place] [address] [place] [address] 06/07/2024 1:05 PM CDT Office Visit [facility] Breast Surgery Jazmin Couch [address] [place] [address] [place] [address] [place] [address] 06/20/2024 8:30 AM CDT Office Visit [facility] Internal Medicine Phuong Mahoney [address] [facility] [address] [place] [address] [place] [address] [place] [address] 06/20/2024 11:15 AM CDT Office Visit [facility] Endocrinology [address] [facility] [address] [place] [address] Shanice Llamas MD [address] [facility] [address] [place] [address] 12/08/2024 11:00 AM CDT Office Visit [facility] Heart and Vascular - [facility] [address] [place] [address] Nam Coto MD [address] [facility] [address] [place] [address] documented as of this encounter Visit Diagnoses Diagnosis Headache(784.0)- Primary Headache documented in this encounter Additional Health Concerns Infection Onset Date Last Indicated Resolved Time R/O COVID-19 12/28/2019 12/28/2019 12/30/2019 5:45 AM CDT COVID-19 12/28/2019 12/28/2019 01/27/2020 1:16 AM CDT documented as of this encounter Care Teams Military Lawyer Relationship Specialty [place] [address] [facility] [address] [place] [address] PCP - General Internal Medicine 02/18/21 documented as of this encounter
--- OUTSIDE RECORDS SUMMARY | 2024-05-18 09:12 | XMS_ITS | Encounter Summary ---
Author Organization [facility] Address [address] [place] [address] Care Team Providers Care Slitting Machine Feeder Name Role Phone Kerwin Quiroga MD Primary Care Provider +1- [phone] Encounter Details Date Type Department Care Team (Late st Contact Info) Description 02/25/2007 Outpatient Historical [facility] Luc Hemphill MD [address] [facility] [address] [place] [address] Benign Neoplasm of Stomach (Primary Dx); Nausea with Vomiting Social History Tobacco Use Types Packs/Day Years Used Date Smoking Tobacco: Never Assessed Comments Unknown Sex and Gender Information Value Date Recorded Sex Assigned at Not on file Legal Sex Female 4:29 AM PERSONAL FITNESS MANAGER Gender Identity Not on file Sexual Orientation Not on file documented as of this encounter Plan of Treatment Upcoming Encounters Date Type Department Care Team (Late st Contact Info) Description 05/20/2024 9:30 AM PERSONAL FITNESS MANAGER Office Visit [facility] Internal Medicine Phuong Mahoney [address] [place] [address] [place] [address] [place] [address] 05/24/2024 11:45 AM PERSONAL FITNESS MANAGER Office Visit [facility] Oncology and Hematology - Paras [address] [facility] [address] [place] [address] Nelson Cazares MD [address] [facility] [address] [place] [address] 06/07/2024 12:00 PM CDT Appointment [facility] Jazmin [address]ouch [address] [place] [address] [place] [address] [place] [address] 06/07/2024 1:05 PM CDT Office Visit [facility] Breast Surgery Jazmin Couch [address] [place] [address] [place] [address] [place] [address] 06/20/2024 8:30 AM CDT Office Visit [facility] Internal Medicine Phuong Mahoney [address] [facility] [address] [place] [address] [place] [address] [place] [address] 06/20/2024 11:15 AM CDT Office Visit [facility] Endocrinology [address] [facility] [address] [place] [address] Shanice Llamas MD [address] [facility] [address] [place] [address] 12/08/2024 11:00 AM CDT Office Visit [facility] Heart and Vascular - [facility] [address] [facility] [address] [place] [address] Nam Coto MD [address] [facility] [address] [place] [address] documented as of this encounter Visit Diagnoses Diagnosis Benign neoplasm of stomach- Primary Nausea with vomiting documented in this encounter Additional Health Concerns Infection Onset Date Last Indicated Resolved Time R/O COVID-19 12/28/2019 12/28/2019 12/30/2019 5:45 AM CDT COVID-19 12/28/2019 12/28/2019 01/27/2020 1:16 AM CDT documented as of this encounter Care Teams Slitting Machine Feeder Relationship Specialty [place] [address] [facility] [address] [place] [address] PCP - General Internal Medicine 02/18/21 documented as of this encounter
--- OUTSIDE RECORDS SUMMARY | 2024-05-18 09:12 | XMS_ITS | Encounter Summary ---
Author Organization [facility] Address [address] [place] [address] Care Team Providers Care Boiler Repair Supervisor Name Role Phone Kerwin Quiroga MD Primary Care Provider +1- [phone] Encounter Details Date Type Department Care Team (Late st Contact Info) Description 04/10/2005 Outpatient Historical [facility] INTERNISTS Jeremías Farias MD NO ADDRESS ON FILE Social History Tobacco Use Types Packs/Day Years Used Date Smoking Tobacco: Never Assessed Comments Unknown Sex and Gender Information Value Date Recorded Sex Assigned at Not on file Legal Sex Female 4:29 AM SECURITY FIELD SUPERVISOR Gender Identity Not on file Sexual Orientation Not on file documented as of this encounter Plan of Treatment Upcoming Encounters Date Type Department Care Team (Late st Contact Info) Description 05/20/2024 9:30 AM SECURITY FIELD SUPERVISOR Office Visit [facility] Internal Medicine Phuong Denzel [address] [place] [address] [place] [address] [address] [facility] [place] [address] 05/24/2024 11:45 AM SECURITY FIELD SUPERVISOR Office Visit [facility] Oncology and Hematology - Paras [address] [facility] [address] [place] [address] Nelson Cazares MD [address] [facility] [address] [place] [address] 06/07/2024 12:00 PM CDT Appointment [facility] [address] [place] [address] [place] [address] [place] [address] 06/07/2024 1:05 PM CDT Office Visit [facility] Breast Surgery Jazmin Couch [address] [place] [address] [place] [address] [place] [address] 06/20/2024 8:30 AM CDT Office Visit [facility] Internal Medicine Phuong Denzel [address] [facility] [address] [place] [address] [place] [address] [place] [address] 06/20/2024 11:15 AM CDT Office Visit [facility] Endocrinology [address] [place] [address] Shanice Llamas MD [address] [place] [address] 12/08/2024 11:00 AM CDT Office Visit [facility] Heart and Vascular - [facility] [address] [facility] [address] [place] [address] Nam Coto MD [address] [facility] [address] [place] [address] documented as of this encounter Visit Diagnoses Not on filedocumented in this encounter Additional Health Concerns Infection Onset Date Last Indicated Resolved Time R/O COVID-19 12/28/2019 12/28/2019 12/30/2019 5:45 AM CDT COVID-19 12/28/2019 12/28/2019 01/27/2020 1:16 AM CDT documented as of this encounter Care Teams Boiler Repair Supervisor Relationship Specialty [place] [address] [facility] [address] [place] [address] PCP - General Internal Medicine 02/18/21 documented as of this encounter
--- OUTSIDE RECORDS SUMMARY | 2024-05-18 09:12 | XMS_ITS | Encounter Summary ---
Author Organization [facility] Address [address] [place] [address] Care Team Providers Care Retail Buyer Name Role Phone Kerwin Quiroga MD Primary Care Provider +1- [phone] Encounter Details Date Type Department Care Team (Late st Contact Info) Description 08/02/2004 Outpatient Historical HIS [facility] INTERNISTS Jeremías Farias MD NO ADDRESS ON FILE Social History Tobacco Use Types Packs/Day Years Used Date Smoking Tobacco: Never Assessed Comments Unknown Sex and Gender Information Value Date Recorded Sex Assigned at Not on file Legal Sex Female 4:29 AM BUSINESS SYSTEMS ANALYST Gender Identity Not on file Sexual Orientation Not on file documented as of this encounter Plan of Treatment Upcoming Encounters Date Type Department Care Team (Late st Contact Info) Description 05/20/2024 9:30 AM BUSINESS SYSTEMS ANALYST Office Visit [facility] Internal Medicine Phuong Denzel [address] [place] [address] [place] [address] [facility] [place] [address] 05/24/2024 11:45 AM BUSINESS SYSTEMS ANALYST Office Visit [facility] Oncology and Hematology - Paras [address] [facility] [address] [place] [address] Nelson Cazares MD [address] [facility] [address] [place] [address] 06/07/2024 12:00 PM CDT Appointment [facility] [address] [place] [address] [place] [address] [place] [address] 06/07/2024 1:05 PM CDT Office Visit [facility] Breast Surgery Jazmin Couch [address] [place] [address] [place] [address] [place] [address] 06/20/2024 8:30 AM CDT Office Visit [facility] Internal Medicine Phuong Denzel [address] [facility] [address] [place] [address] [place] [address] [place] [address] 06/20/2024 11:15 AM CDT Office Visit [facility] Endocrinology [address] [facility] [address] [place] [address] Shanice Llamas MD [address] [facility] [address] [place] [address] 12/08/2024 11:00 AM CDT Office Visit [facility] Heart and Vascular - [facility] [address] [address] [place] [address] Nam Coto MD [address] [facility] [address] [place] [address] documented as of this encounter Visit Diagnoses Not on filedocumented in this encounter Additional Health Concerns Infection Onset Date Last Indicated Resolved Time R/O COVID-19 12/28/2019 12/28/2019 12/30/2019 5:45 AM CDT COVID-19 12/28/2019 12/28/2019 01/27/2020 1:16 AM CDT documented as of this encounter Care Teams Retail Buyer Relationship Specialty [place] [address] [facility] [address] [place] [address] PCP - General Internal Medicine 02/18/21 documented as of this encounter
--- OUTSIDE RECORDS SUMMARY | 2024-05-18 09:12 | XMS_ITS | Encounter Summary ---
Author Organization [facility] Address [address] [place] [address] Care Team Providers Care Assistant Casino Shift Manager Name Role Phone Kerwin Quiroga MD Primary Care Provider +1- [phone] Encounter Details Date Type Department Care Team (Latest Contact Info) Description 10/27/2001 Outpatient Historical [facility] Jeremías Farias MD NO ADDRESS ON FILE CHEST PAIN NOS (Primary Dx) Social History Tobacco Use Types Packs/Day Years Used Date Smoking Tobacco: Never Assessed Comments Unknown Sex and Gender Information Value Date Recorded Sex Assigned at Not on file Legal Sex Female 4:29 AM RETURNER Gender Identity Not on file Sexual Orientation Not on file documented as of this encounter Plan of Treatment Upcoming Encounters Date Type Department Care Team (Late st Contact Info) Description 05/20/2024 9:30 AM RETURNER Office Visit [facility] Internal Medicine Phuong Denzel [address] [place] [address] [place] [address] [facility] [place] [address] 05/24/2024 11:45 AM RETURNER Office Visit [facility] Oncology and Hematology - Paras [address] [facility] [address] [place] [address] Nelson Cazares MD [address] [facility] [address] [place] [address] 06/07/2024 12:00 PM CDT Appointment [facility] [address] [place] [address] [place] [address] [place] [address] 06/07/2024 1:05 PM CDT Office Visit [facility] Breast Surgery Jazmin Couch [address] [place] [address] [place] [address] [place] [address] 06/20/2024 8:30 AM CDT Office Visit [facility] Internal Medicine Phuong Denzel [address] [facility] [address] [place] [address] [place] [address] [place] [address] 06/20/2024 11:15 AM CDT Office Visit [facility] Endocrinology [address] [place] [address] Shanice Llamas MD [address] [place] [address] 12/08/2024 11:00 AM CDT Office Visit [facility] Heart and Vascular - [facility] [address] [address] [place] [address] Nam Coto MD [address] [facility] [address] [place] [address] documented as of this encounter Visit Diagnoses Diagnosis Chest pain, unspecified- Primary documented in this encounter Additional Health Concerns Infection Onset Date Last Indicated Resolved Time R/O COVID-19 12/28/2019 12/28/2019 12/30/2019 5:45 AM CDT COVID-19 12/28/2019 12/28/2019 01/27/2020 1:16 AM CDT documented as of this encounter Care Teams Assistant Casino Shift Manager Relationship Specialty [place] [address] [facility] [address] [place] [address] PCP - General Internal Medicine 02/18/21 documented as of this encounter
--- OUTSIDE RECORDS SUMMARY | 2024-05-18 09:12 | XMS_ITS | Encounter Summary ---
Author Organization [facility] Address [address] [place] [address] Care Team Providers Care Seater Grinder Name Role Phone Kerwin Quiroga MD Primary Care Provider +1- [phone] Encounter Details Date Type Department Care Team (Latest Contact Info) Description 02/10/2000 Outpatient Historical HIS [facility] Jeremías Torres MD NO ADDRESS ON FILE Essential hypertension, benign (Primary Dx) Social History Tobacco Use Types Packs/Day Years Used Date Smoking Tobacco: Never Assessed Comments Unknown Sex and Gender Information Value Date Recorded Sex Assigned at Not on file Legal Sex Female 4:29 AM ELECTRICAL SYSTEM SPECIALIST Gender Identity Not on file Sexual Orientation Not on file documented as of this encounter Plan of Treatment Upcoming Encounters Date Type Department Care Team (Late st Contact Info) Description 05/20/2024 9:30 AM ELECTRICAL SYSTEM SPECIALIST Office Visit [facility] Internal Medicine Phuong Mahoney [address] [facility] [address] [place] [address] [place] [address] [address] [facility] [address] [place] [address] 05/24/2024 11:45 AM ELECTRICAL SYSTEM SPECIALIST Office Visit [facility] Oncology and Hematology - Paras [address] [place] [address] Nelson Cazares MD [address] [facility] [address] [place] [address] 06/07/2024 12:00 PM CDT Appointment [facility] [address] [place] [address] [place] [address] [place] [phone] 06/07/2024 1:05 PM CDT Office Visit [facility] Breast Surgery Jazmin Couch [address] [place] [address] [place] [address] [place] [address] 06/20/2024 8:30 AM CDT Office Visit [facility] Internal Medicine Phuong Denzel [address] [place] [address] [place] [address] [place] [address] 06/20/2024 11:15 AM CDT Office Visit [facility] Endocrinology [address] [facility] [facility] [address] [place] [address] Shanice Llamas MD [address] [facility] [address] [place] [address] 12/08/2024 11:00 AM CDT Office Visit [facility] Heart and Vascular - [facility] [address] [place] [address] Nam Coto MD [address] [place] [address] documented as of this encounter Visit Diagnoses Diagnosis Essential hypertension, benign- Primary documented in this encounter Additional Health Concerns Infection Onset Date Last Indicated Resolved Time R/O COVID-19 12/28/2019 12/28/2019 12/30/2019 5:45 AM CDT COVID-19 12/28/2019 12/28/2019 01/27/2020 1:16 AM CDT documented as of this encounter Care Teams Seater Grinder Relationship Specialty [place] [address] [facility] [address] [place] [id number] PCP - General Internal Medicine 02/18/21 documented as of this encounter
--- OUTSIDE RECORDS SUMMARY | 2024-05-18 09:12 | XMS_ITS | Encounter Summary ---
Author Organization [facility] Address [address] [place] [address] Care Team Providers Care Business Objects Consultant Name Role Phone Kerwin Quiroga MD Primary Care Provider +1- [phone] Encounter Details Date Type Department Care Team (Late st Contact Info) Description 06/06/2004 Outpatient Historical HIS [facility] Jeremías Farias MD NO ADDRESS ON FILE Social History Tobacco Use Types Packs/Day Years Used Date Smoking Tobacco: Never Assessed Comments Unknown Sex and Gender Information Value Date Recorded Sex Assigned at Not on file Legal Sex Female 4:29 AM METROLOGY SPECIALIST Gender Identity Not on file Sexual Orientation Not on file documented as of this encounter Plan of Treatment Upcoming Encounters Date Type Department Care Team (Late st Contact Info) Description 05/20/2024 9:30 AM METROLOGY SPECIALIST Office Visit [facility] Internal Medicine Phuong Denzel [address] [place] [address] [place] [address] [address] [facility] [place] [address] 05/24/2024 11:45 AM METROLOGY SPECIALIST Office Visit [facility]3] Oncology and Hematology - Paras [address] [facility] [address] [place] [address] Nelson Cazares MD [address] [facility] [address] [place] [address] 06/07/2024 12:00 PM CDT Appointment [facility] [address] [place] [address] [place] [address] [place] [address] 06/07/2024 1:05 PM CDT Office Visit [facility] Breast Surgery Jazmin Couch [address] [place] [address] [place] [address] [place] [address] 06/20/2024 8:30 AM CDT Office Visit [facility]3] Internal Medicine Phuong Denzel [address] [facility] [address] [place] [address] [place] [address] [place] [address] 06/20/2024 11:15 AM CDT Office Visit [facility]3] Endocrinology [address] [place] [address] Shanice Llamas MD [address] [place] [address] 12/08/2024 11:00 AM CDT Office Visit [facility]3] Heart and Vascular - [facility] [address] [place] [address] Nam Coto MD [address] [facility] [address] [place] [address] documented as of this encounter Visit Diagnoses Not on filedocumented in this encounter Additional Health Concerns Infection Onset Date Last Indicated Resolved Time R/O COVID-19 12/28/2019 12/28/2019 12/30/2019 5:45 AM CDT COVID-19 12/28/2019 12/28/2019 01/27/2020 1:16 AM CDT documented as of this encounter Care Teams Business Objects Consultant Relationship Specialty [place] [address] [facility] [address] [place] [address] PCP - General Internal Medicine 02/18/21 documented as of this encounter
--- OUTSIDE RECORDS SUMMARY | 2024-05-18 09:12 | XMS_ITS | Encounter Summary ---
Author Organization [facility] Address [address] [place] [address] Care Team Providers Care Natural Resources Engineer Name Role Phone Kerwin Quiroga MD Primary Care Provider +1- [phone] Encounter Details Date Type Department Care Team (Late st Contact Info) Description 10/27/2001 Outpatient Historical [facility] Support [facility]. (Adt Cardiology-[facility]) [address] [place] [address] Dinora Mack MD [address] [place] [address] [address] [place] [address] Social History Tobacco Use Types Packs/Day Years Used Date Smoking Tobacco: Never Assessed Comments Unknown Sex and Gender Information Value Date Recorded Sex Assigned at Not on file Legal Sex Female 4:29 AM INTERNATIONAL ACCOUNTANT Gender Identity Not on file Sexual Orientation Not on file documented as of this encounter Plan of Treatment Upcoming Encounters Date Type Department Care Team (Late st Contact Info) Description 05/20/2024 9:30 AM INTERNATIONAL ACCOUNTANT Office Visit [facility] Internal Medicine Phuong Mahoney [address] [place] [address] [place] [address] [place] [address] 05/24/2024 11:45 AM INTERNATIONAL ACCOUNTANT Office Visit [facility] Oncology and Hematology - Paras [facility] [place] [address] Nelson Cazares MD [address] [facility] [address] [place] [address] 06/07/2024 12:00 PM CDT Appointment [facility] [address] [facility] [place] [address] [place] [address] [place] [address] 06/07/2024 1:05 PM CDT Office Visit [facility] Breast Surgery [place] [address] [place] [address] [place] [address] [place] [address] [place] [address] 06/20/2024 8:30 AM CDT Office Visit [facility] Internal Medicine Phuong Ednzel [address] [place] [address] [place] [address] [place] [address] 06/20/2024 11:15 AM CDT Office Visit [facility] Endocrinology [address] [facility] [address] [place] [address] Shanice Llamas MD [address] [facility] [address] [place] [address] 12/08/2024 11:00 AM CDT Office Visit [facility] Heart and Vascular - [place] [address] [place] [address] Nam Coto MD [address] [facility] [address] [place] [address] documented as of this encounter Visit Diagnoses Not on filedocumented in this encounter Additional Health Concerns Infection Onset Date Last Indicated Resolved Time R/O COVID-19 12/28/2019 12/28/2019 12/30/2019 5:45 AM CDT COVID-19 12/28/2019 12/28/2019 01/27/2020 1:16 AM CDT documented as of this encounter Care Teams Natural Resources Engineer Relationship Specialty [place] [address] [facility] [address] [place] [phone] PCP - General Internal Medicine 02/18/21 documented as of this encounter
--- OUTSIDE RECORDS SUMMARY | 2024-05-18 09:12 | XMS_ITS | Encounter Summary ---
Author Organization [facility] Address [address] [place] [address] Care Team Providers Care Bark Spudder Name Role Phone Kerwin Quiroga MD Primary Care Provider +1- [phone] Encounter Details Date Type Department Care Team (Late st Contact Info) Description 05/11/2000 Outpatient Historical HIS [facility] Jeremías Farias MD NO ADDRESS ON FILE Social History Tobacco Use Types Packs/Day Years Used Date Smoking Tobacco: Never Assessed Comments Unknown Sex and Gender Information Value Date Recorded Sex Assigned at Not on file Legal Sex Female 4:29 AM CARE TECHNICIAN Gender Identity Not on file Sexual Orientation Not on file documented as of this encounter Plan of Treatment Upcoming Encounters Date Type Department Care Team (Late st Contact Info) Description 05/20/2024 9:30 AM CARE TECHNICIAN Office Visit [facility] Internal Medicine Phuong Denzel [address] [place] [address] [place] [address] [address] [facility] [place] [address] 05/24/2024 11:45 AM CARE TECHNICIAN Office Visit [facility] Oncology and Hematology - Paras [address] [place] [address] Nelson Cazares MD [address] [facility] [address] [place] [address] 06/07/2024 12:00 PM CDT Appointment [facility] [address] [place] [address] [place] [address] [place] [address] 06/07/2024 1:05 PM CDT Office Visit [facility] Breast Surgery Jazmin Couch [address] [place] [address] [place] [address] [place] [address] 06/20/2024 8:30 AM CDT Office Visit [facility] Internal Medicine Phuong Denzel [address] [facility] [address] [place] [address] [place] [address] [place] [address] 06/20/2024 11:15 AM CDT Office Visit [facility] Endocrinology [address] [place] [address] Shanice Llamas MD [address] [place] [address] 12/08/2024 11:00 AM CDT Office Visit [facility] Heart and Vascular - [facility] [address] [place] [address] Nam Coto MD [address] [facility] [address] [place] [address] documented as of this encounter Visit Diagnoses Not on filedocumented in this encounter Additional Health Concerns Infection Onset Date Last Indicated Resolved Time R/O COVID-19 12/28/2019 12/28/2019 12/30/2019 5:45 AM CDT COVID-19 12/28/2019 12/28/2019 01/27/2020 1:16 AM CDT documented as of this encounter Care Teams Bark Spudder Relationship Specialty [place] [address] [facility] [address] [place] [address] PCP - General Internal Medicine 02/18/21 documented as of this encounter
--- OUTSIDE RECORDS SUMMARY | 2024-05-18 09:12 | XMS_ITS | Encounter Summary ---
Author Organization [facility] Address [address] [place] [address] Care Team Providers Care Head Turbine Operator Name Role Phone Kerwin Quiroga MD Primary Care Provider +1- [phone] Encounter Details Date Type Department Care Team (Late st Contact Info) Description 2006 Outpatient Historical HIS MRI DEPT Wang Alaniz MD [address] [place] [address] Unspecified Sinusitis (Chronic) (Primary Dx) Social History Tobacco Use Types Packs/Day Years Used Date Smoking Tobacco: Never Assessed Comments Unknown Sex and Gender Information Value Date Recorded Sex Assigned at Not on file Legal Sex Female 4:29 AM ACTIVITIES SPECIALIST Gender Identity Not on file Sexual Orientation Not on file documented as of this encounter Plan of Treatment Upcoming Encounters Date Type Department Care Team (Late Contact Info) Description 05/20/2024 9:30 AM ACTIVITIES SPECIALIST Office Visit [facility] Internal Medicine Phuong Mahoney [address] [place] [address] [place] [address] [address] [facility] [address] [facility] [place] [place] [address] 05/24/2024 11:45 AM ACTIVITIES SPECIALIST Office Visit [facility] Oncology and Hematology - Paras [address] [facility] [address] [place] [address] Nelson Cazares MD [address] [facility] [address] [place] [address] 06/07/2024 12:00 PM CDT Appointment [facility] Jazmin Couch [address] [place] [address] [place] [address] [place] [address] 06/07/2024 1:05 PM CDT Office Visit [facility] Breast Surgery Jazmin Couch [address] [place] [address] [place] [address] [place] [address] 06/20/2024 8:30 AM CDT Office Visit [facility] Internal Medicine Phuong Mahoney [address] [facility] [address] [place] [address] [place] [address] [place] [address] 06/20/2024 11:15 AM CDT Office Visit [facility] Endocrinology [address] [place] [address] Shanice Llamas MD [address] [facility] [address] [place] [address] 12/08/2024 11:00 AM CDT Office Visit [facility] Heart and Vascular - [facility] [address] [place] [address] Nam Coto MD [address] [facility] [address] [place] [address] documented as of this encounter Visit Diagnoses Diagnosis Unspecified sinusitis (chronic)- Primary documented in this encounter Additional Health Concerns Infection Onset Date Last Indicated Resolved Time R/O COVID-19 12/28/2019 12/28/2019 12/30/2019 5:45 AM CDT COVID-19 12/28/2019 12/28/2019 01/27/2020 1:16 AM CDT documented as of this encounter Care Teams Head Turbine Operator Relationship Specialty [place] [address] [facility] [address] [place] [address] PCP - General Internal Medicine 02/18/21 documented as of this encounter
--- OUTSIDE RECORDS SUMMARY | 2024-05-18 09:12 | XMS_ITS | Encounter Summary ---
Author Organization [facility] Address [address] Chambers: Epic Prelude ADT [place] [address] Care Team Providers Care Knot Tier Name Role Phone Kerwin Quiroga MD Primary Care Provider +1- [phone] Encounter Details Date Type Department Care Team (Latest Contact Info) Description 09/16/2006 Orders Only Yasemin Davis MD Social History Tobacco Use Types Packs/Day Years Used Date Smoking Tobacco: Never Assessed Comments Unknown Sex and Gender Information Value Date Recorded Sex Assigned at Not on file Legal Sex Female 4:29 AM COMB MACHINE OPERATOR Gender Identity Not on file Sexual Orientation Not on file documented as of this encounter Progress Notes * Interface, Emiliano Stl Conv Transcriptions - 08/18/2007 5:00 PM CDT WEIGHT: 197lbs BLOOD PRESSURE: 130/70 Right Arm Sitting TEMPERATURE: 97.3??f Oral PULSE: 72 Right Radial, Regular RESPIRATIONS: 12 HEIGHT: 63 3/4in NURSE NAME: Milton Gan J ALLERGIES: Allergies are as listed. MEDICATIONS: Medication list current. CHIEF COMPLAINT new pt est HISTORY: HISTORY: 250.00-DM II CONTROLLED The diabetes remains stable. The patient has lost weight. Patient is somewhat compliant with diet. The patient`s exercise is the same. The patient denies polyuria, polyphagia,polydipsia, change in vision, foot ulcerations, or hypoglycemic episodes. The patient is toleratingthe medication. The patient is being seen by an digital advertising analyst. 401.1-HYPERTENSION ESSENTIAL BENIGN The patient has lost weight. The patient is somewhat compliant with diet. The patient`s exercise is the same. The patient denies chest pain, shortness of breath, dyspnea on exertion, pedal edema, or headache. The patient is tolerating the medication. 530.81-ESOPHAGEAL REFLUX The patient's dyspeptic symptoms remain stable. The patient denies any significant abdominal pain, nausea, vomiting, indigestion, bloating, or water brash. No complications noted from the medication presently being used. 477.8-ALLERGIC RHINITIS The allergic rhinitis symptoms have improved. The patient denies sneezing, rhinorrhea, coryza, and watery eyes. The patient is being seen by an bounty hunter. CURRENT MEDICATION LIST: NEXIUM ORAL CAPSULE DELAYED RELEASE 40 MG, 1 Two Times A Day ESTRATEST ORAL TABLET 1.25-2.5 MG, 1 Every Day METFORMIN HCL ORAL TABLET 1000 MG, 1 Two Times A Day GLIMEPIRIDE ORAL TABLET 2 MG, 2 Every Day SULFAMETHOXAZOLE-TRIMETHOPRIM ORAL TABLET 800-160 MG, 1 Every Day ASTELIN NASAL SOLUTION 137 MCG/SPRAY, BYETTA 10 MCG PEN SUBCUTANEOUS SOLUTION 250 MCG/ML, as directed PAROXETINE HCL ORAL TABLET 20 MG, 1 Every Day SIMVASTATIN ORAL TABLET 40 MG, 1 Every Day LISINOPRIL ORAL TABLET 20 MG, 1 Every Day At Bedtime CURRENT ALLERGY LIST: PCN ROS: GENERAL: Normal activity and energy level, no change in appetite. No major weight gain or loss. No malaise, chills, fever, diaphoresis. ALLERGIC/IMMUNOLOGIC: HAS ALLERGIC RHINITIS. ENT: No hearing loss, epistaxis, hoarseness or dysphagia. No sinus congestion. ENDOCRINE: HISTORY OF DIABETES. CARDIAC: No chest pain, palpitations, orthopnea, dyspnea on exertion, or paroxysmal nocturnal dyspnea. RESPIRATORY: No dyspnea, cough, hemoptysis or wheezing. SKIN/BREAST/CHEST: No rashes or non-healing lesions. No breast symptoms noted. HEMATOLOGIC/LYMPHATIC: No anemia, easy bruising, bleeding or swollen nodes. : No frequency, urgency, hematuria or dysuria. GI: No abdominal pain, nausea, vomiting, diarrhea, constipation, melena, or hematochezia. NEUROLOGIC: No weakness, dizziness, loss of consciousness, transient ischemic symptoms, or seizures. MUSCULOSKELETAL: No muscle or joint pain, weakness, swelling or inflammation. No restriction of motion, no atrophy or backache. PSYCHIATRIC: No increased nervousness, mood changes or depression. Coping well. PAST MEDICAL HISTORY: MEDICAL: Diabetes, hypercholesterolemia, hypertension, gastroesophageal reflux. SURGICAL: Cholecystectomy, hysterectomy, knee arthroscopy. FAMILY HISTORY: FATHER: The father is living. No major illnesses are known. MOTHER: The mother is living. No major illnesses are known. SOCIAL HISTORY: MARITAL HISTORY: , living with spouse. TOBACCO USE: Has no significant smoking history. 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 PHYSICAL EXAMINATION: CONSTITUTIONAL: GENERAL APPEARANCE: Healthy appearing patient in no distress. EARS, NOSE, MOUTH AND THROAT: EXTERNAL/EARS AND NOSE: Overall appearance normal with no scars, lesions or masses. EARS: Tympanic membranes shiny without retraction. Canals unremarkable. Hearing grossly normal. ORAL: Inspection of gums, lips, palate, and teeth normal. No scars, lesions, or masses. Oral mucosaunremarkable with non-inflamed posterior pharynx. NECK/THYROID: Trachea midline. No thyroid enlargement, tenderness, or mass. No supraclavicular or cervical adenopathy. RESPIRATORY: Clear to auscultation and percussion. Normal respiratory effort. CARDIOVASCULAR: CARDIAC: Regular rhythm. No murmurs, rubs, or gallops. EDEMA/VARICOSITIES OF EXTREMITIES: No edema or varicosities. GASTROINTESTINAL: ABDOMEN: Soft, non-tender, without masses. Bowel sounds active. MUSCULOSKELETAL EXAM: GAIT/STATION: Normal gait. PSYCHIATRIC: Judgment appropriate. Oriented. Normal memory. Mood and affect appropriate. ASSESSMENT/PLAN: 250.00-DM II CONTROLLED ASSESSMENT: The diabetes remains satisfactory. Will not change medication, continue to monitor for complications. 401.1-HYPERTENSION ESSENTIAL BENIGN ASSESSMENT: The blood pressure remains satisfactory. 530.81-ESOPHAGEAL REFLUX ASSESSMENT: The patient's reflux esophagitis continues to remain stable. Will not change medication, continue to monitor for complications. 477.8-ALLERGIC RHINITIS ASSESSMENT: The patient's allergic rhinitis continues to remain stable. Will not change medication,continue to monitor for complications. RETURN VISIT : Return as planned. Electronically Signed by: Yasmein Lacy MD on Saturday, September 16, 2006 documented in this encounter Plan of Treatment Upcoming Encounters Date Type Department Care Team (Late st Contact Info) Description 05/20/2024 9:30 AM COMB MACHINE OPERATOR Office Visit [facility] Internal Medicine Phuong Mahoney [address] [place] [address] [place] [address] [place] [address] 05/24/2024 11:45 AM COMB MACHINE OPERATOR Office Visit [facility] Oncology and Hematology - Paras [address] [place] [address] Nelson Cazares MD [address] [place] [address] 06/07/2024 12:00 PM CDT Appointment [facility] [place] [address] [place] [address] [place] [address] [place] [address] 06/07/2024 1:05 PM CDT Office Visit [facility] Breast Surgery [place] Couch [address] [place] [address] [place] [address] [place] [address] 06/20/2024 8:30 AM CDT Office Visit [facility] Internal Medicine Phuong Mahoney [address] [place] [address] [place] [address] [place] [address] 06/20/2024 11:15 AM CDT Office Visit [facility] Endocrinology [address] [place] [address] Shanice Llamas MD [address] [place] [address] 12/08/2024 11:00 AM CDT Office Visit [facility] Heart and Vascular - [facility] [address] [place] [address] Nam Coto MD [address] [place] [address] documented as of this encounter Visit Diagnoses Not on filedocumented in this encounter Additional Health Concerns Infection Onset Date Last Indicated Resolved Time R/O COVID-19 12/28/2019 12/28/2019 12/30/2019 5:45 AM CDT COVID-19 12/28/2019 12/28/2019 01/27/2020 1:16 AM CDT documented as of this encounter Care Teams Knot Tier Relationship Specialty [place] [address] [place] [phone] PCP - General Internal Medicine 02/18/21 documented as of this encounter
--- OUTSIDE RECORDS SUMMARY | 2024-05-18 09:12 | XMS_ITS | Encounter Summary ---
Author Organization [facility] Address [address] Chambers: Epic Prelude ADT [place] [address] Care Team Providers Care Director Of Research And Development Name Role Phone Kerwin Quiroga MD Primary Care Provider +1- [phone] Encounter Details Date Type Department Care Team (Latest Contact Info) Description 01/08/2007 Orders Only Yasemin Davis MD Social History Tobacco Use Types Packs/Day Years Used Date Smoking Tobacco: Never Assessed Comments Unknown Sex and Gender Information Value Date Recorded Sex Assigned at Not on file Legal Sex Female 4:29 AM POWDER HAND Gender Identity Not on file Sexual Orientation Not on file documented as of this encounter Progress Notes * Interface, Emiliano Stl Conv Transcriptions - 08/13/2007 11:40 AM CDT PULSE: 76 Right Radial, Regular RESPIRATIONS: 18 BLOOD PRESSURE: 136/80 Right Arm Sitting WEIGHT: 198lbs TEMPERATURE: 98.3??f Oral HEIGHT: 63 3/4in NURSE NAME: Hugo Kelsy ALLERGIES: Allergies are as listed. MEDICATIONS: Medication list current. CHIEF COMPLAINT f/u htn & dm. Pt informed to take off socks and shoes HISTORY: HISTORY OF PRESENT ILLNESS: EARACHE: The symptoms began weeks ago. The symptoms are located in both ears. The patient has no symptoms of chest congestion, has no symptoms of chest pain, has no symptoms of chill, has no symptomsof cough, has symptoms of dizziness, has no symptoms of ear drainage, has symptoms of bilateral earpain, has no symptoms of fever, has no symptoms of headache, has no symptoms of hoarseness, has symptoms of nasal congestion, has no symptoms of sore throat, has runny nose, has no symptoms of shortness of breath. There is pain present that is described as achy, pressure-like. The severity is mild,moderate. The symptoms have been unchanged. She says the pain will change if she turns her head to one direction. CURRENT MEDICATION LIST: NEXIUM ORAL CAPSULE DELAYED [...] fever, diaphoresis. ALLERGIC/IMMUNOLOGIC: HAS ALLERGIC RHINITIS. ENT: See HISTORY OF PRESENT ILLNESS. CARDIAC: No chest pain, palpitations, orthopnea, dyspnea on exertion, or paroxysmal nocturnal dyspnea. RESPIRATORY: No dyspnea, cough, hemoptysis or wheezing. : No frequency, urgency, hematuria or dysuria. GI: No abdominal pain, nausea, vomiting, diarrhea, constipation, melena, or hematochezia. PAST MEDICAL HISTORY: MEDICAL: Diabetes, hypercholesterolemia, hypertension, gastroesophageal reflux. PHYSICAL EXAMINATION: CONSTITUTIONAL: GENERAL APPEARANCE: Healthy appearing patient in no distress. EARS, NOSE, MOUTH AND THROAT: EXTERNAL/EARS AND NOSE: Overall appearance normal with no scars, lesions or masses. EARS: External auditory canal normal bilaterally, BULGING TYMPANIC MEMBRANES NOTED BILATERALLY. NOSE (AND SINUS): Frontal sinuses are not tender, red or swollen, maxillary sinuses are not tender,red or swollen, TURBINATES SWOLLEN BILATERALLY, TURBINATES INFLAMED BILATERALLY. ORAL: Inspection of gums, lips, palate, and teeth normal. No scars, lesions, or masses. Oral mucosaunremarkable with non-inflamed posterior pharynx. NECK/THYROID: Trachea midline. No thyroid enlargement, tenderness, or mass. No supraclavicular or cervical adenopathy. RESPIRATORY: Clear to auscultation and percussion. Normal respiratory effort. CARDIOVASCULAR: CARDIAC: Regular rhythm. No murmurs, rubs, or gallops. EDEMA/VARICOSITIES OF EXTREMITIES: No edema or varicosities. ASSESSMENT/PLAN: 477.8-ALLERGIC RHINITIS ASSESSMENT: The patient's allergic rhinitis has worsened. Will start medication for better control. MEDICATIONS: RHINOCORT AQUA NASAL SUSPENSION 32 MCG/ACT, 2 sprays in each nostril once daily., 2 Dispensed, status: NEW PRESCRIPTION, 01/08/2007. She will stop Astelin. RETURN VISIT : Instructed to call if not improving. Electronically Signed by: Yasemin Lacy MD on Monday, January 08, 2007 documented in this encounter Plan of Treatment Upcoming Encounters Date Type Department Care Team (Late st Contact Info) Description 05/20/2024 9:30 AM POWDER HAND Office Visit [facility] Internal Medicine Phuong Mahoney [address] [place] [phone] [place] [address] [facility] [address] [place] [phone] 05/24/2024 11:45 AM POWDER HAND Office Visit [facility] Oncology and Hematology - Paras [address] [place] [address] Nelson Cazares MD [address] [place] [address] 06/07/2024 12:00 PM CDT Appointment [facility] [place] [address] [place] [address] [place] [address] [place] [address] 06/07/2024 1:05 PM CDT Office Visit [facility] Breast Surgery [place] [address] [place] [address] [place] [address] [place] [address] 06/20/2024 8:30 AM CDT Office Visit [facility] Internal Medicine Phuong Mahoney [address] [facility] [address] [facility] [address] [place] [address] [place] [address] [facility] [place] [address] 06/20/2024 11:15 AM CDT Office Visit [facility] Endocrinology [address] [place] [address] Shanice Llamas MD [address] [place] [address] 12/08/2024 11:00 AM CDT Office Visit [facility] Heart and Vascular - [facility] [address] [place] [address] Nam Coto MD [address] [place] [address] documented as of this encounter Visit Diagnoses Not on filedocumented in this encounter Additional Health Concerns Infection Onset Date Last Indicated Resolved Time R/O COVID-19 12/28/2019 12/28/2019 12/30/2019 5:45 AM CDT COVID-19 12/28/2019 12/28/2019 01/27/2020 1:16 AM CDT documented as of this encounter Care Teams Director Of Research And Development Relationship Specialty [place] [address] [facility] [address] [address] [place] [address] PCP - General Internal Medicine 02/18/21 documented as of this encounter
--- OUTSIDE RECORDS SUMMARY | 2024-05-18 09:12 | XMS_ITS | Encounter Summary ---
Author Organization [facility] Address [address] [place] [address] Care Team Providers Care Gas Meter Checker Name Role Phone Kerwin Quiroga MD Primary Care Provider +1- [phone] Encounter Details Date Type Department Care Team (Late st Contact Info) Description 06/11/2006 Outpatient Historical [facility] INTERNISTS Jeremías Farias MD NO ADDRESS ON FILE Social History Tobacco Use Types Packs/Day Years Used Date Smoking Tobacco: Never Assessed Comments Unknown Sex and Gender Information Value Date Recorded Sex Assigned at Not on file Legal Sex Female 4:29 AM ASSURANCE MANAGER Gender Identity Not on file Sexual Orientation Not on file documented as of this encounter Plan of Treatment Upcoming Encounters Date Type Department Care Team (Late st Contact Info) Description 05/20/2024 9:30 AM ASSURANCE MANAGER Office Visit [facility] Internal Medicine Phuong Denzel [address] [place] [address] [place] [address] [facility] [place] [address] 05/24/2024 11:45 AM ASSURANCE MANAGER Office Visit [facility] Oncology and Hematology - Paras [address] [facility] [address] [place] [address] Nelson Cazares MD [address] [facility] [facility] [address] [place] [address] 06/07/2024 12:00 PM CDT Appointment [facility] [place] [address] [place] [address] [place] [address] [place] [phone] 06/07/2024 1:05 PM CDT Office Visit [facility] Breast Surgery Jazmin Couch [address] [place] [address] [place] [address] [place] [address] 06/20/2024 8:30 AM CDT Office Visit [facility] Internal Medicine Phuong Denzel [address] [facility] [address] [place] [address] [place] [address] [place] [address] 06/20/2024 11:15 AM CDT Office Visit [facility] Endocrinology [address] [place] [address] Shanice Llamas MD [address] [place] [address] 12/08/2024 11:00 AM CDT Office Visit [facility] Heart and Vascular - Old [facility] [address] [place] [address] Nam Coto MD [address] [facility] [address] [place] [address] documented as of this encounter Visit Diagnoses Not on filedocumented in this encounter Additional Health Concerns Infection Onset Date Last Indicated Resolved Time R/O COVID-19 12/28/2019 12/28/2019 12/30/2019 5:45 AM CDT COVID-19 12/28/2019 12/28/2019 01/27/2020 1:16 AM CDT documented as of this encounter Care Teams Gas Meter Checker Relationship Specialty [place] [address] [facility] [address] [place] [address] PCP - General Internal Medicine 02/18/21 documented as of this encounter
--- OUTSIDE RECORDS SUMMARY | 2024-05-18 09:12 | XMS_ITS | Encounter Summary ---
Author Organization [facility] Address [address] [place] [address] Care Team Providers Care Farmworker Fur Name Role Phone Kerwin Quiroga MD Primary Care Provider +1- [phone] Encounter Details Date Type Department Care Team (Late st Contact Info) Description 09/03/2000 Outpatient Historical [facility] INTERNISTS Jeremías Farias MD NO ADDRESS ON FILE Social History Tobacco Use Types Packs/Day Years Used Date Smoking Tobacco: Never Assessed Comments Unknown Sex and Gender Information Value Date Recorded Sex Assigned at Not on file Legal Sex Female 4:29 AM BUCKLE COVERER Gender Identity Not on file Sexual Orientation Not on file documented as of this encounter Plan of Treatment Upcoming Encounters Date Type Department Care Team (Late st Contact Info) Description 05/20/2024 9:30 AM BUCKLE COVERER Office Visit [facility] Internal Medicine Phuong Denzel [address] [place] [address] [place] [address] [facility] [place] [address] 05/24/2024 11:45 AM BUCKLE COVERER Office Visit [facility] Oncology and Hematology - Paras [address] [facility] [facility] [address] [place] [address] Nelson Cazares MD [address] [facility] [address] [place] [address] 06/07/2024 12:00 PM CDT Appointment [facility] [address]min [address] [place] [address] [place] [address] [place] [address] 06/07/2024 1:05 PM CDT Office Visit [facility] Breast Surgery Jazmin Couch [address] [place] [address] [place] [address] [place] [address] 06/20/2024 8:30 AM CDT Office Visit [facility] Internal Medicine Phuong Denzel [address] [facility] [address] [place] [address] [place] [address] [place] [address] 06/20/2024 11:15 AM CDT Office Visit [facility] Endocrinology [address] [place] [address] Shanice Llamas MD [address] [place] [address] 12/08/2024 11:00 AM CDT Office Visit [facility] Heart and Vascular - [facility] [address] [place] [address] Nam Coto MD [address] [facility] [address] [place] [address] documented as of this encounter Visit Diagnoses Not on filedocumented in this encounter Additional Health Concerns Infection Onset Date Last Indicated Resolved Time R/O COVID-19 12/28/2019 12/28/2019 12/30/2019 5:45 AM CDT COVID-19 12/28/2019 12/28/2019 01/27/2020 1:16 AM CDT documented as of this encounter Care Teams Farmworker Fur Relationship Specialty [place] [address] [facility] [address] [place] [address] PCP - General Internal Medicine 02/18/21 documented as of this encounter
--- OUTSIDE RECORDS SUMMARY | 2024-05-18 09:12 | XMS_ITS | Encounter Summary ---
Author Organization [facility] Address [address] [place] [address] Care Team Providers Care Lifeline Representatives Name Role Phone Kerwin Quiroga MD Primary Care Provider +1- [phone] Encounter Details Date Type Department Care Team (Late st Contact Info) Description 03/13/2006 Outpatient Historical [facility] INTERNISTS Jeremías Farias MD NO ADDRESS ON FILE Social History Tobacco Use Types Packs/Day Years Used Date Smoking Tobacco: Never Assessed Comments Unknown Sex and Gender Information Value Date Recorded Sex Assigned at Not on file Legal Sex Female 4:29 AM INTERNATIONAL LOGISTICS ANALYST Gender Identity Not on file Sexual Orientation Not on file documented as of this encounter Plan of Treatment Upcoming Encounters Date Type Department Care Team (Late st Contact Info) Description 05/20/2024 9:30 AM INTERNATIONAL LOGISTICS ANALYST Office Visit [facility] Internal Medicine Phuong Denzel [address] [place] [address] [place] [address] [facility] [place] [address] 05/24/2024 11:45 AM INTERNATIONAL LOGISTICS ANALYST Office Visit [facility] Oncology and Hematology - Paras [address] [place] [address] Nelson Cazares MD [address] [facility] [address] [place] [address] 06/07/2024 12:00 PM CDT Appointment [facility] [address]min [address] [address] [place] [address] [place] [address] [place] [phone] 06/07/2024 1:05 PM CDT Office Visit [facility] Breast Surgery Jazmin Couch [address] [place] [address] [place] [address] [place] [address] 06/20/2024 8:30 AM CDT Office Visit [facility] Internal Medicine Phuong Denzel [address] [facility] [address] [place] [address] [place] [address] [place] [address] 06/20/2024 11:15 AM CDT Office Visit [facility] Endocrinology [address] [place] [address] Shanice Llamas MD [address] [place] [address] 12/08/2024 11:00 AM CDT Office Visit [facility] Heart and Vascular - [facility] [address] [place] [address] Nam Coto MD [address] [facility] [address] [place] [address] documented as of this encounter Visit Diagnoses Not on filedocumented in this encounter Additional Health Concerns Infection Onset Date Last Indicated Resolved Time R/O COVID-19 12/28/2019 12/28/2019 12/30/2019 5:45 AM CDT COVID-19 12/28/2019 12/28/2019 01/27/2020 1:16 AM CDT documented as of this encounter Care Teams Lifeline Representatives Relationship Specialty [place] [address] [facility] [address] [place] [address] PCP - General Internal Medicine 02/18/21 documented as of this encounter
--- OUTSIDE RECORDS SUMMARY | 2024-05-18 09:12 | XMS_ITS | Encounter Summary ---
Author Organization [facility] Address [address] [place] [address] Care Team Providers Care Skin Former Name Role Phone Kerwin Quiroga MD Primary Care Provider +1- [phone] Encounter Details Date Type Department Care Team (Latest Contact Info) Description 11/05/1999 Outpatient Historical [facility] Yariel Mathew MD Chondromalacia of patella (Primary Dx) Social History Tobacco Use Types Packs/Day Years Used Date Smoking Tobacco: Never Assessed Comments Unknown Sex and Gender Information Value Date Recorded Sex Assigned at Not on file Legal Sex Female 4:29 AM TROLLEY COLLECTOR Gender Identity Not on file Sexual Orientation Not on file documented as of this encounter Plan of Treatment Upcoming Encounters Date Type Department Care Team (Late st Contact Info) Description 05/20/2024 9:30 AM TROLLEY COLLECTOR Office Visit [facility] Internal Medicine Phuong Mahoney [address] [facility] [address] [place] [address] [place] [address] [place] [address] 05/24/2024 11:45 AM TROLLEY COLLECTOR Office Visit [facility] Oncology and Hematology - Paras [address] [place] [address] Nelson Cazares MD [address] [facility] [address] [place] [address] 06/07/2024 12:00 PM CDT Appointment [facility] [address] [place] [address] [place] [address] [place] [phone] 06/07/2024 1:05 PM CDT Office Visit [facility] Breast Surgery Jazmin Couch [address] [place] [address] [place] [address] [place] [address] 06/20/2024 8:30 AM CDT Office Visit [facility] Internal Medicine Phuong Denzel [address] [facility] [address] [place] [address] [place] [address] [place] [address] 06/20/2024 11:15 AM CDT Office Visit [facility] Endocrinology [address] [place] [address] Shanice Llamas MD [address] [facility] [address] [place] [address] 12/08/2024 11:00 AM CDT Office Visit [facility] Heart and Vascular - [facility] [address] [place] [address] Nam Coto MD [address] [facility] [address] [place] [address] documented as of this encounter Visit Diagnoses Diagnosis Chondromalacia of patella- Primary documented in this encounter Additional Health Concerns Infection Onset Date Last Indicated Resolved Time R/O COVID-19 12/28/2019 12/28/2019 12/30/2019 5:45 AM CDT COVID-19 12/28/2019 12/28/2019 01/27/2020 1:16 AM CDT documented as of this encounter Care Teams Skin Former Relationship Specialty [place] [address] [place] [phone] PCP - General Internal Medicine 02/18/21 documented as of this encounter
--- OUTSIDE RECORDS SUMMARY | 2024-05-18 09:12 | XMS_ITS | Encounter Summary ---
Author Organization [facility] Address [address] [place] [address] Care Team Providers Care Metal Tube Cutter Name Role Phone Kerwin Quiroga MD Primary Care Provider +1- [phone] Encounter Details Date Type Department Care Team (Late st Contact Info) Description 09/16/2006 Outpatient Historical [facility] Internal Medicine [place] [address] [facility] [address] [place] [address] Saturnino ms, MD Yasemin Social History Tobacco Use Types Packs/Day Years Used Date Smoking Tobacco: Never Assessed Comments Unknown Sex and Gender Information Value Date Recorded Sex Assigned at Not on file Legal Sex Female 4:29 AM NUCLEAR EQUIPMENT OPERATOR Gender Identity Not on file Sexual Orientation Not on file documented as of this encounter Last Filed Vital Signs Vital Sign Reading Time Taken Comments Blood Pressure 130/70 09/16/2006 11:30 AM CDT Pulse 72 09/16/2006 11:30 AM CDT Temperature 36.3 C (97.3 F) 09/16/2006 11:30 AM CDT Respiratory Rate 12 09/16/2006 11:30 AM CDT Oxygen Saturation - - Inhaled Oxygen Concentration - - Weight 89.4 kg (197 lb) 09/16/2006 11:30 AM CDT Height 161.9 cm (5' 3.75 ) 09/16/2006 11:30 AM C DT Body Mass Index 34.08 09/16/2006 11:30 AM CDT documented in this encounter Plan of Treatment Upcoming Encounters Date Type Department Care Team (Late st Contact Info) Description 05/20/2024 9:30 AM NUCLEAR EQUIPMENT OPERATOR Office Visit [facility] Internal Medicine Phuong Mahoney [address] [place] [address] [place] [address] [place] [address] 05/24/2024 11:45 AM NUCLEAR EQUIPMENT OPERATOR Office Visit [facility] Oncology and Hematology - Paras [address] [facility] [address] [place] [address] Nelson Cazares MD [address] [facility] [address] [place] [address] 06/07/2024 12:00 PM CDT Appointment [facility] [place] [address] [address] [place] [address] [place] [address] [place] [address] 06/07/2024 1:05 PM CDT [facility] [address] [facility] [address] [place] [address] [place] [address] [place] [address] 06/20/2024 8:30 AM CDT Office Visit [facility] Internal Medicine Phuong Mahoney [address] [place] [address] [place] [address] [place] [address] 06/20/2024 11:15 AM CDT Office Visit [facility] Endocrinology [address] [facility] [address] [place] [address] Shanice Llamas MD [address] [facility] [address] [place] [address] 12/08/2024 11:00 AM CDT Office Visit [facility] Heart and Vascular - [facility] [address] [place] [address] Nam Coto MD [address] [place] [address] documented as of this encounter Visit Diagnoses Not on filedocumented in this encounter Additional Health Concerns Infection Onset Date Last Indicated Resolved Time R/O COVID-19 12/28/2019 12/28/2019 12/30/2019 5:45 AM CDT COVID-19 12/28/2019 12/28/2019 01/27/2020 1:16 AM CDT documented as of this encounter Care Teams Metal Tube Cutter Relationship Specialty [place] [address] [facility] [address] [place] [address] PCP - General Internal Medicine 02/18/21 documented as of this encounter
--- OUTSIDE RECORDS SUMMARY | 2024-05-18 09:12 | XMS_ITS | Encounter Summary ---
Author Organization [facility] Address [address] [place] [address] Care Team Providers Care Collateral Specialist Name Role Phone Kerwin Quiroga MD Primary Care Provider +1- [phone] Encounter Details Date Type Department Care Team (Late st Contact Info) Description 04/08/2006 Outpatient Historical [facility] Jeremías Farias MD NO ADDRESS ON FILE Unspecified Sinusitis (Chronic) (Primary Dx) Social History Tobacco Use Types Packs/Day Years Used Date Smoking Tobacco: Never Assessed Comments Unknown Sex and Gender Information Value Date Recorded Sex Assigned at Not on file Legal Sex Female 4:29 AM DIPLOMATIC OFFICER Gender Identity Not on file Sexual Orientation Not on file documented as of this encounter Plan of Treatment Upcoming Encounters Date Type Department Care Team (Late st Contact Info) Description 05/20/2024 9:30 AM DIPLOMATIC OFFICER Office Visit [facility] Internal Medicine Phuong Mahoney [address] [facility] [address] [place] [address] [place] [address] [facility] [address] [facility] [place] [place] [address] 05/24/2024 11:45 AM DIPLOMATIC OFFICER Office Visit [facility] Oncology and Hematology - Paras [address] [place] [address] Nelson Cazares MD [address] [facility] [address] [place] [address] 06/07/2024 12:00 PM CDT Appointment [facility] [address] [place] [address] [place] [address] [place] [phone] 06/07/2024 1:05 PM CDT Office Visit [facility] Breast Surgery Jazmin Couch [address] [place] [address] [place] [address] [place] [address] 06/20/2024 8:30 AM CDT Office Visit [facility] Internal Medicine Phuong Denzel [address] [place] [address] [place] [address] [place] [address] 06/20/2024 11:15 AM CDT Office Visit [facility] Endocrinology [address] [facility] [address] [facility] [address] [place] [address] Shanice Llamas MD [address] [facility] [facility] [address] [place] [address] 12/08/2024 11:00 AM CDT Office Visit [facility] Heart and Vascular - [facility] [address] [place] [address] Nam Coto MD [address] [facility] [address] [place] [address] documented as of this encounter Visit Diagnoses Diagnosis Unspecified sinusitis (chronic)- Primary documented in this encounter Additional Health Concerns Infection Onset Date Last Indicated Resolved Time R/O COVID-19 12/28/2019 12/28/2019 12/30/2019 5:45 AM CDT COVID-19 12/28/2019 12/28/2019 01/27/2020 1:16 AM CDT documented as of this encounter Care Teams Collateral Specialist Relationship Specialty [place] [address] [facility] [address] [place] [address] PCP - General Internal Medicine 02/18/21 documented as of this encounter
--- OUTSIDE RECORDS SUMMARY | 2024-05-18 09:12 | XMS_ITS | Encounter Summary ---
Author Organization [facility] Address [address] [place] [address] Care Team Providers Care Academic Counselor Name Role Phone Kerwin Quiroga MD Primary Care Provider +1- [phone] Encounter Details Date Type Department Care Team (Late st Contact Info) Description 09/23/2005 Outpatient Historical [facility] Alana Pérez MD [address] [place] [address] [address] Esophageal Reflux (Primary Dx) Social History Tobacco Use Types Packs/Day Years Used Date Smoking Tobacco: Never Assessed Comments Unknown Sex and Gender Information Value Date Recorded Sex Assigned at Not on file Legal Sex Female 4:29 AM NETTING WEAVER Gender Identity Not on file Sexual Orientation Not on file documented as of this encounter Plan of Treatment Upcoming Encounters Date Type Department Care Team (Late Contact Info) Description 05/20/2024 9:30 AM NETTING WEAVER Office Visit [facility] Internal Medicine Phuong Mahoney [address] [facility] [address] [place] [address] [place] [address] [address] [facility] [address] [place] [address] 05/24/2024 11:45 AM NETTING WEAVER Office Visit [facility] Oncology and Hematology - Paras [address] [facility] [address] [place] [address] Nelson Cazares MD [address] [facility] [address] [place] [address] 06/07/2024 12:00 PM CDT Appointment [facility] Jazmin Couch [address] [place] [address] [place] [address] [place] [address] 06/07/2024 1:05 PM CDT Office Visit [facility] Breast Surgery Jazmin Couch [address] [place] [address] [place] [address] [facility] [address] [place] [address] 06/20/2024 8:30 AM CDT Office Visit [facility] Internal Medicine Phuong Mahoney [address] [facility] [address] [place] [address] [place] [address] [place] [address] 06/20/2024 11:15 AM CDT Office Visit [facility] Endocrinology [address] [place] [address] Shanice Llamas MD [address] [facility] [address] [place] [address] 12/08/2024 11:00 AM CDT Office Visit [facility] Heart and Vascular - [facility] [address] [facility] [place] [address] Nam Coto MD [address] [facility] [address] [place] [address] documented as of this encounter Visit Diagnoses Diagnosis Esophageal reflux- Primary documented in this encounter Additional Health Concerns Infection Onset Date Last Indicated Resolved Time R/O COVID-19 12/28/2019 12/28/2019 12/30/2019 5:45 AM CDT COVID-19 12/28/2019 12/28/2019 01/27/2020 1:16 AM CDT documented as of this encounter Care Teams Academic Counselor Relationship Specialty [place] [address] [facility] [address] [place] [phone] PCP - General Internal Medicine 02/18/21 documented as of this encounter
--- OUTSIDE RECORDS SUMMARY | 2024-05-18 09:12 | XMS_ITS | Encounter Summary ---
Author Organization [facility] Address 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 MACHINE OPERATOR Gender Identity Not on file Sexual Orientation Not on file documented as of this encounter Plan of Treatment Upcoming Encounters Date Type Department Care Team (Late Contact Info) Description 05/20/2024 9:30 AM FABRICATION MACHINE OPERATOR Office Visit [facility] Internal Medicine Phuong Mahoney [address] [facility] [address] [place] [address] [place] [address] [address] [facility] [address] [place] [address] 05/24/2024 11:45 AM FABRICATION MACHINE OPERATOR Office Visit [facility] Oncology and Hematology - Paras [address] [facility] [address] [place] [address] Nelson Cazares MD [address] [facility] [address] [place] [address] 06/07/2024 12:00 PM CDT Appointment [facility] [address] [place] [address] [place] [address] [place] [address] 06/07/2024 1:05 PM CDT Office Visit [facility] Breast Surgery Jazmin Couch [address] [place] [address] [place] [address] [place] [address] 06/20/2024 8:30 AM CDT Office Visit [facility] Internal Medicine Phuong Mahoney [address] [facility] [address] [place] [address] [place] [address] [place] [address] 06/20/2024 11:15 AM CDT Office Visit [facility] Endocrinology [address] [place] [address] Shanice Llamas MD [address] [place] [address] 12/08/2024 11:00 AM CDT Office Visit [facility] Heart and Vascular - [facility] [employer] [facility] [address] [facility] [address] [place] [address] Nam Coto MD [address] [facility] [address] [place] [address] documented as of this encounter Procedures Procedure Name Priority Date/Time Associated Diagnosis Comments POC GLUCOSE Routine 01/05/2006 8:44 AM CDT documented in this encounter Results * (ABNORMAL) POC GLUCOSE (01/05/2006 8:44 AM CDT) COMMENT, GLU POC Notified MD INTERFACE SYSTEM GLUCOSE POC 172(H) 65 - 109 mg/dL INTERFACE SYSTEM 01/05/2006 8:44 AM CDT Boy Kaufman MD POINT OF CARE TESTING F inal Result INTERFACE SYSTEM Refer to clinic/hospital department documented in this encounter Visit Diagnoses Diagnosis Other specified gastritis without mention of hemorrhage- Primary documented in this encounter Additional Health Concerns Infection Onset Date Last Indicated Resolved Time R/O COVID-19 12/28/2019 12/28/2019 12/30/2019 5:45 AM CDT COVID-19 12/28/2019 12/28/2019 01/27/2020 1:16 AM CDT documented as of this encounter Care Teams Crane Oiler Relationship Specialty [place] [address] [facility] [address] [place] [phone] PCP - General Internal Medicine 02/18/21 documented as of this encounter
--- OUTSIDE RECORDS SUMMARY | 2024-05-18 09:12 | XMS_ITS | Encounter Summary ---
Author Organization [facility] Address [address] [place] [address] Care Team Providers Care Social Work Coordinator Name Role Phone Kerwin Quiroga MD Primary Care Provider +1- [phone] Encounter Details Date Type Department Care Team (Late st Contact Info) Description 01/08/2007 Outpatient Historical [facility] Internal Medicine [address] [address] [place] [address] Saturnino ms, MD Yasemin Social History Tobacco Use Types Packs/Day Years Used Date Smoking Tobacco: Never Assessed Comments Unknown Sex and Gender Information Value Date Recorded Sex Assigned at Not on file 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 Sex 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 Gender Identity Not on file Sexual Orientation Not on file documented as of this encounter Last Filed Vital Signs Vital Sign Reading Time Taken Comments Blood Pressure 136/80 01/08/2007 2:15 PM CDT Pulse 76 01/08/2007 2:15 PM CDT Temperature 36.8 C (98.3 F) 01/08/2007 2:15 PM CDT Respiratory Rate 18 01/08/2007 2:15 PM CDT Oxygen Saturation - - Inhaled Oxygen Concentration - - Weight 89.8 kg (198 lb) 01/08/2007 2:15 PM CDT Height 161.9 cm (5' 3.75 ) 01/08/2007 2:15 PM CD T Body Mass Index 34.25 01/08/2007 2:15 PM CDT documented in this encounter Plan of Treatment Upcoming Encounters Date Type Department Care Team (Late st Contact Info) Description 05/20/2024 9:30 AM WEATHERSEAL TECHNICIAN Office Visit [facility] Internal Medicine [place] [address] [place] [address] [place] [address] [place] [address] 05/24/2024 11:45 AM WEATHERSEAL TECHNICIAN Office Visit [facility] Oncology and Hematology - Paras [address] [facility] [address] [place] [address] Nelson Cazares MD [address] [facility] [address] [place] [address] 06/07/2024 12:00 PM CDT Appointment [facility] [address] [address] [place] [address] [place] [address] [place] [address] 06/07/2024 1:05 PM CDT [facility] [address] [facility] [address] [place] [address] [place] [address] [place] [address] 06/20/2024 8:30 AM CDT Office Visit [facility] Internal Medicine [place] [address] [place] [address] [place] [address] [place] [address] 06/20/2024 11:15 AM CDT Office Visit [facility] Endocrinology [address] [place] [address] Shanice Llamas MD [address] [place] [address] 12/08/2024 11:00 AM CDT Office Visit [facility] Heart and Vascular - [facility] [address] [place] [address] Nam Coto MD [address] [place] [address] documented as of this encounter Visit Diagnoses Not on filedocumented in this encounter Additional Health Concerns Infection Onset Date Last Indicated Resolved Time R/O COVID-19 12/28/2019 12/28/2019 12/30/2019 5:45 AM CDT COVID-19 12/28/2019 12/28/2019 01/27/2020 1:16 AM CDT documented as of this encounter Care Teams Social Work Coordinator Relationship Specialty [place] [address] [facility] [address] [place] [phone] PCP - General Internal Medicine 02/18/21 documented as of this encounter
--- OUTSIDE RECORDS SUMMARY | 2024-05-18 09:12 | XMS_ITS | Encounter Summary ---
Author Organization [facility] Address [address] [place] [address] Care Team Providers Care Biological Science Aide Name Role Phone Kerwin Quiroga MD Primary Care Provider +1- [phone] Encounter Details Date Type Department Care Team (Late st Contact Info) Description 02/03/2000 Outpatient Historical [facility] Yariel Mathew MD Tear of lateral cartilage or meniscus of knee, current (Primary Dx) Social History Tobacco Use Types Packs/Day Years Used Date Smoking Tobacco: Never Assessed Comments Unknown Sex and Gender Information Value Date Recorded Sex Assigned at Not on file Legal Sex Female 4:29 AM SUB MASTER Gender Identity Not on file Sexual Orientation Not on file documented as of this encounter Plan of Treatment Upcoming Encounters Date Type Department Care Team (Late st Contact Info) Description 05/20/2024 9:30 AM SUB MASTER Office Visit [facility] Internal Medicine [place] [place] [address] [place] [address] [place] [address] 05/24/2024 11:45 AM SUB MASTER Office Visit [facility] Oncology and Hematology - Paras [address] [place] [address] Nelson Cazares MD [address] [facility] [facility] [address] [place] [address] 06/07/2024 12:00 PM CDT Appointment [facility] [address] [place] [address] [place] [address] [place] [address] 06/07/2024 1:05 PM CDT Office Visit [facility] Breast Surgery [place] [address] [place] [address] [place] [address] [place] [address] 06/20/2024 8:30 AM CDT Office Visit [facility] Internal Medicine [address] [address] [place] [address] [place] [address] [place] [address] 06/20/2024 11:15 AM CDT Office Visit [facility] Endocrinology [address] [place] [address] Shanice Llamas MD [address] [place] [address] 12/08/2024 11:00 AM CDT Office Visit [facility] Heart and Vascular - [facility] [address] [place] [address] Nam Coto MD [address] [facility] [address] [place] [address] documented as of this encounter Visit Diagnoses Diagnosis Tear of lateral cartilage or meniscus of knee, current- Primary documented in this encounter Additional Health Concerns Infection Onset Date Last Indicated Resolved Time R/O COVID-19 12/28/2019 12/28/2019 12/30/2019 5:45 AM CDT COVID-19 12/28/2019 12/28/2019 01/27/2020 1:16 AM CDT documented as of this encounter Care Teams Biological Science Aide Relationship Specialty [place] [address] [facility] [address] [place] [phone] PCP - General Internal Medicine 02/18/21 documented as of this encounter
--- OUTSIDE RECORDS SUMMARY | 2024-05-18 09:12 | XMS_ITS | Encounter Summary ---
Author Organization [facility] Address [address] [place] [address] Care Team Providers Care Manager Field Services Name Role Phone Kerwin Quiroga MD Primary Care Provider +1- [phone] Encounter Details Date Type Department Care Team (Late st Contact Info) Description 08/02/2004 Outpatient Historical [facility], [address] Jeremías Farias MD NO ADDRESS ON FILE Social History Tobacco Use Types Packs/Day Years Used Date Smoking Tobacco: Never Assessed Comments Unknown Sex and Gender Information Value Date Recorded Sex Assigned at Not on file Legal Sex Female 4:29 AM CHIEF SECURITY OFFICER Gender Identity Not on file Sexual Orientation Not on file documented as of this encounter Plan of Treatment Upcoming Encounters Date Type Department Care Team (Late st Contact Info) Description 05/20/2024 9:30 AM CHIEF SECURITY OFFICER Office Visit [facility] Internal Medicine [address] [facility] [address] [place] [address] [place] [address] [address] [facility] [address] [facility] [place] [phone] 05/24/2024 11:45 AM CHIEF SECURITY OFFICER Office Visit [facility] Oncology and Hematology - Par[address] [place] [address] Nelson Cazares MD [address] [facility] [address] [place] [address] 06/07/2024 12:00 PM CDT Appointment [facility] [address] [place] [address] [place] [address] [place] [phone] 06/07/2024 1:05 PM CDT Office Visit [facility] Breast Surgery [place] [address] [place] [address] [place] [address] [place] [address] 06/20/2024 8:30 AM CDT Office Visit [facility] Internal Medicine [address] [facility] [address] [place] [address] [place] [address] [place] [address] 06/20/2024 11:15 AM CDT Office Visit [facility] Endocrinology [address] [place] [address] Shanice Llamas MD [address] [facility] [address] [place] [address] 12/08/2024 11:00 AM CDT Office Visit [facility] Heart and Vascular - [facility] [address] [place] [address] Nam Coto MD [address] [facility] [address] [place] [address] documented as of this encounter Procedures Procedure Name Priority Date/Time Associated Diagnosis Comments CBC WITH DIFFERENTIAL Routine 08/02/2004 5:37 PM CDT CBC WITH DIFFERENTIAL Routine 08/02/2004 5:37 PM CDT URINALYSIS W/REFLEX MICROSCOPIC Routine 08/02/2004 5:37 PM CDT COMPREHENSIVE METABOLIC PANEL Routine 08/02/2004 5:37 PM CDT documented in this encounter Results * (ABNORMAL) URINALYSIS (08/02/2004 5:37 PM CDT) COLOR UA Yellow INTERFACE SYSTEM CLARITY UA Cloudy(A) Clear INTERFACE SYSTEM SPECIFIC GRAVITY UA 1.015 1.001 - 1.035 INTERFACE SYSTEM PH UA 7.5 5.0 - 8.0 INTERFACE SYSTEM LEUKOCYTE ESTERASE UA Negative Negative INTERFACE SYSTEM NITRITE UA Negative Negative INTERFACE SYSTEM PROTEIN UA Negative Negative INTERFACE SYSTEM GLUCOSE UA Negative Negative INTERFACE SYSTEM KETONES UA Negative Negative INTERFACE SYSTEM UROBILINOGEN UA <1 <1 EU INTE RFACE SYSTEM BILIRUBIN UA Negative Negative INTERFA CE SYSTEM BLOOD UA Negative Negative INTERFACE SYSTEM RBC UA 2 0 - 4 /HPF INTERFACE SYSTEM EPITHELIAL CELLS, URINE 2-5 /HPF INTERFACE SYSTEM AMORPHOUS CRYSTAL Few /HPF INTERFACE SYSTEM 08/02/2004 5:37 PM CDT Jeremías Farias MD URINE ORDERABLES Final Result INTERFACE SYSTEM Refer to clinic/hospital department * CBC WITH DIFFERENTIAL (08/02/2004 5:37 PM CDT) NEUTROPHILS 65 45 - 70 % INTERFAC E SYSTEM LYMPHOCYTES 24 16 - 45 % INTERFAC E SYSTEM MONOCYTES 8 3 - 13 % INTERFACE SYSTEM EOSINOPHILS 2 0 - 7 % INTERFAC E SYSTEM BASOPHILS 0 0 - 2 % INTERFACE SYSTEM NEUTROPHIL ABSOLUTE 6.22 1.90 - 7.00 K/uL INTERFACE SYSTEM LYMPHOCYTE ABSOLUTE 2.29 0.70 - 4.50 K/uL INTERFACE SYSTEM MONOCYTE ABSOLUTE 0.76 0.10 - 1.30 K/uL INTERFACE SYSTEM EOSINOPHIL ABSOLUTE 0.20 0.00 - 0.70 K/uL INTERFACE SYSTEM BASOPHILS ABSOLUTE 0.04 0.00 - 0.20 K/uL INTERFACE SYSTEM 08/02/2004 5:37 PM CDT Jeremías Farias MD HEMATOLOGY ORDERABLES Final Re sult Performing Organization Address [facility] Phone Number INTERFACE SYSTEM Refer to clinic/hospital department * (ABNORMAL) CBC WITH DIFFERENTIAL (08/02/2004 5:37 PM CDT) WBC 9.5 4.0 - 9.8 K/uL INTERFACE SYSTEM RBC 4.95(H) 3.90 - 4.90 M/uL INTERFACE SYSTEM HEMOGLOBIN 15.4(H) 11.8 - 14.8 g/dL INTERFACE SYSTEM HEMATOCRIT 45.1(H) 35.5 - 44.0 % INTERFACE SYSTEM MCV 91.1 82.0 - 99.0 fL INTERFACE SYSTEM MCH 31.1 27.2 - 32.6 pg INTERFACE SYSTEM MCHC 34.1 31.5 - 35.5 % INTERFACE SYSTEM RDW 13.2 11.5 - 14.5 % INTERFACE SYSTEM RDW-STDEV 43.5 37.1 - 48.7 fL INTERFACE SYSTEM PLATELETS 286 140 - 350 K/uL INTERFACE SYSTEM MPV 11.0 9.3 - 12.4 fL INTERFACE SYSTEM 08/02/2004 5:37 PM CDT Jeremías Farias MD HEMATOLOGY ORDERABLES Final Re sult Performing Organization Address [facility] Phone Number INTERFACE SYSTEM Refer to clinic/hospital department * (ABNORMAL) COMPREHENSIVE METABOLIC PANEL (08/02/2004 5:37 PM CDT) GLUCOSE 93 65 - 109 mg/dL INTERFACE SYSTEM CREATININE 0.8 0.4 - 1.2 mg/dL INTERFACE SYSTEM CALCIUM 10.2 8.6 - 10.2 mg/dL INTERFACE SYSTEM AST 22 12 - 32 U/L INTERFACE SYSTEM ALKALINE PHOSPHATASE 59 35 - 104 U/L INTERFACE SYSTEM BUN 14 6 - 20 mg/dL INTERFACE SYSTEM BILIRUBIN TOTAL 0.4 0.2 - 1.0 mg/dL INTERFACE SYSTEM ALBUMIN 4.7 3.4 - 4.8 g/dL INTERFACE SYSTEM TOTAL PROTEIN 7.7 6.3 - 8.6 g/dL INTERFACE SYSTEM ALT 32(H) 0 - 31 U/L INTERFACE SYSTEM SODIUM 137 135 - 145 mmol/L INTERFACE SYSTEM POTASSIUM 3.8 3.5 - 4.9 mmol/L INTERFACE SYSTEM CHLORIDE 97 96 - 108 mmol/L INTERFACE SYSTEM CO2 29 22 - 30 mmol/L INTERFACE SYSTEM 08/02/2004 5:37 PM CDT us Jeremías Farias MD CHEMISTRY ORDERABLES Final Res ult INTERFACE SYSTEM Refer to clinic/hospital department documented in this encounter Visit Diagnoses Not on filedocumented in this encounter Additional Health Concerns Infection Onset Date Last Indicated Resolved Time R/O COVID-19 12/28/2019 12/28/2019 12/30/2019 5:45 AM CDT COVID-19 12/28/2019 12/28/2019 01/27/2020 1:16 AM CDT documented as of this encounter Care Teams Manager Field Services Relationship Specialty [place] [address] [place] [address] PCP - General Internal Medicine 02/18/21 documented as of this encounter
--- OUTSIDE RECORDS SUMMARY | 2024-05-18 09:12 | XMS_ITS | Encounter Summary ---
Author Organization [facility] Address [address] [place] [address] Care Team Providers Care Hydrology Teacher Name Role Phone Kerwin Quiroga MD Primary Care Provider +1- [phone] Encounter Details Date Type Department Care Team (Late st Contact Info) Description 02/13/2005 Outpatient Historical [facility] INTERNISTS Jeremías Farias MD NO ADDRESS ON FILE Social History Tobacco Use Types Packs/Day Years Used Date Smoking Tobacco: Never Assessed Comments Unknown Sex and Gender Information Value Date Recorded Sex Assigned at Not on file Legal Sex Female 4:29 AM WATER CONSERVATION SPECIALIST Gender Identity Not on file Sexual Orientation Not on file documented as of this encounter Plan of Treatment Upcoming Encounters Date Type Department Care Team (Late st Contact Info) Description 05/20/2024 9:30 AM WATER CONSERVATION SPECIALIST Office Visit [facility] Internal Medicine [address] [address] [place] [address] [place] [address] [facility] [place] [address] 05/24/2024 11:45 AM WATER CONSERVATION SPECIALIST Office Visit [facility] Oncology and Hematology - Paras [address] [facility] [address] [place] [address] Nelson Cazares MD [address] [facility] [address] [place] [address] 06/07/2024 12:00 PM CDT Appointment [facility] [address] [place] [address] [place] [address] [place] [address] 06/07/2024 1:05 PM CDT Office Visit [facility] Breast Surgery [place] [address] [place] [address] [place] [address] [place] [address] 06/20/2024 8:30 AM CDT Office Visit [facility] Internal Medicine [address] [facility] [address] [place] [address] [place] [address] [place] [address] 06/20/2024 11:15 AM CDT Office Visit [facility] Endocrinology [address] [place] [address] Shanice Llamas MD [address] [place] [address] 12/08/2024 11:00 AM CDT Office Visit [facility] Heart and Vascular - [facility] [address] [place] [address] Nam Coto MD [address] [facility] [address] [place] [address] documented as of this encounter Visit Diagnoses Not on filedocumented in this encounter Additional Health Concerns Infection Onset Date Last Indicated Resolved Time R/O COVID-19 12/28/2019 12/28/2019 12/30/2019 5:45 AM CDT COVID-19 12/28/2019 12/28/2019 01/27/2020 1:16 AM CDT documented as of this encounter Care Teams Hydrology Teacher Relationship Specialty [place] [address] [facility] [address] [place] [address] PCP - General Internal Medicine 02/18/21 documented as of this encounter
--- OUTSIDE RECORDS SUMMARY | 2024-05-18 09:13 | XMS_ITS | Encounter Summary ---
Author Organization [facility] Address [address] [facility] Attn: Epic Prelude ADT [place] [address] Care Team Providers Care Trade Analyst Name Role Phone Kerwin Quiroga MD Primary Care Provider +1- [phone] Encounter Details Date Type Department Care Team (Late Contact Info) Description 08/20/1995 Outpatient Historical Jeremías Farias MD NO ADDRESS ON FILE Social History Tobacco Use Types Packs/Day Years Used Date Smoking Tobacco: Never Assessed Comments Unknown Sex and Gender Information Value Date Recorded Sex Assigned at Not on file Legal Sex Female 4:29 AM WAITER Gender Identity Not on file Sexual Orientation Not on file documented as of this encounter Plan of Treatment Upcoming Encounters Date Type Department Care Team (Late st Contact Info) Description 05/20/2024 9:30 AM WAITER Office Visit [facility] Internal Medicine [address] [place] [address] [place] [address] [place] [address] 05/24/2024 11:45 AM WAITER Office Visit [facility] Oncology and Hematology - Paras [address] [place] [address] Nelson Cazares MD [address] [facility] [address] [place] [address] 06/07/2024 12:00 PM CDT Appointment [facility] [address] [place] [address] [place] [address] [place] [phone] 06/07/2024 1:05 PM CDT Office Visit [facility] Breast Surgery [place] [address] [place] [address] [place] [address] [place] [address] 06/20/2024 8:30 AM CDT Office Visit [facility] Internal Medicine [address] [place] [address] [place] [address] [place] [address] 06/20/2024 11:15 AM CDT Office Visit [facility] Endocrinology [address] [place] [address] Shanice Llamas MD [address] [facility] [address] [place] [address] 12/08/2024 11:00 AM CDT Office Visit [facility] Heart and Vascular - [facility] [address] [place] [address] Nam Coto MD [address] [facility] [address] [place] [address] documented as of this encounter Visit Diagnoses Not on filedocumented in this encounter Additional Health Concerns Infection Onset Date Last Indicated Resolved Time R/O COVID-19 12/28/2019 12/28/2019 12/30/2019 5:45 AM CDT COVID-19 12/28/2019 12/28/2019 01/27/2020 1:16 AM CDT documented as of this encounter Care Teams Trade Analyst Relationship Specialty Start [place] [address] [facility] [address] [place] [address] PCP - General Internal Medicine 02/18/21 documented as of this encounter
--- OUTSIDE RECORDS SUMMARY | 2024-05-18 09:13 | XMS_ITS | Encounter Summary ---
Author Organization [facility] Address [address] [place] [address] Care Team Providers Care Visual Merchandising Assistant Name Role Phone Kerwin Quiroga MD Primary Care Provider +1- [phone] Encounter Details Date Type Department Care Team (Late st Contact Info) Description 06/21/2007 Outpatient Historical [facility] Jacqueline Devlin MD [address] [place] [address] Nausea Alone Social History Tobacco Use Types Packs/Day Years Used Date Smoking Tobacco: Never Assessed Comments Unknown Sex and Gender Information Value Date Recorded Sex Assigned at Not on file Legal Sex Female 4:29 AM JOINT SUPERVISOR Gender Identity Not on file Sexual Orientation Not on file documented as of this encounter Plan of Treatment Upcoming Encounters Date Type Department Care Team (Late st Contact Info) Description 05/20/2024 9:30 AM JOINT SUPERVISOR Office Visit [facility] Internal Medicine Phuong Mahoney [address] [facility] [address] [place] [address] [place] [address] [place] [facility] [address] [facility] [place] [address] 05/24/2024 11:45 AM JOINT SUPERVISOR Office Visit [facility] Oncology and Hematology - [address] [place] [address] Nelson Cazares MD [address] [facility] [address] [place] [address] 06/07/2024 12:00 PM CDT Appointment [facility] Jazmin Couch [address] [place] [address] [place] [address] [place] [phone] 06/07/2024 1:05 PM CDT Office Visit [facility] Breast Surgery Jazmin Couch [address] [place] [address] [place] [address] [facility] [address] [place] [address] 06/20/2024 8:30 AM CDT Office Visit [facility] Internal Medicine Phuong Denzel [address] [facility] [address] [place] [address] [place] [address] [facility] [address] [place] [address] 06/20/2024 11:15 AM CDT Office Visit [facility] Endocrinology [address] [place] [address] Shanice Llamas MD [address] [facility] [address] [place] [address] 12/08/2024 11:00 AM CDT Office Visit [facility] Heart and Vascular - [facility] [address] [place] [address] Nam Coto MD [address] [facility] [address] [place] [address] documented as of this encounter Procedures Procedure Name Priority Date/Time Associated Diagnosis Comments NM GASTRIC EMPTYING Timed Study 06/21/2007 9:00 AM CDT documented in this encounter Results * NM GASTRIC EMPTYING (06/21/2007 9:00 AM CDT) Anatomical Region Laterality Modality Abdomen Other 06/21/2007 9:00 AM CDT Narrative 06/21/2007 2:00 PM CDT [address] [address] [place], [place] [address] Admit Date: 06/21/2007 WILLIAM IZAGUIRRE Sex: F Admit Prov: JACQUELINE DEVLIN Date: 1955 Primary Care Prov: BRITTANY GONZALEZ; CMRN: [id number] ERICK MAYER SSN: [id number] Room: [facility] Ordering Prov: N/A Accession Number: [id number] Interpretation Gastric emptying, solid meal History: 51-year-old with dyspepsia, belching, early satiety, diabetes, nausea Findings: Using a standard Eggbeaters egg sandwich meal, with toast and jelly and water gastric emptying was measured over 4 hours. Gastric Percent-retained: 2 hours: 32 % (normal < 60%) 3 hours: 2 % (normal < 21%) Impression: Normal gastric emptying of solid meal. Dose: 0.5 mCi technetium 99m sulfur colloid in egg sandwich. . Dictated by: RIC STRICKLAND 06/21/2007 13:59 Electronically signed by: RIC STRICKLAND 06/21/2007 14:00 Procedure Note Provider, Historical - 06/21/2007 [address] [place], [place] [address] Admit Date: 06/21/2007 WILLIAM IZAGUIRRE Sex: F Admit Prov: JACQUELINE DEVLIN Date: 1955 Primary Care Prov: BRITTANY GONZALEZ; CMRN: [id number] ERICK MAYER SSN: [id number] Room: [facility] Ordering Prov: N/A Interpretation Gastric emptying, solid meal History: 51-year-old with dyspepsia, belching, early satiety,diabetes, nausea Findings: Using a standard Eggbeaters egg sandwich meal, with toastand jelly and water gastric emptying was measured over 4 hours. Gastric Percent-retained: 2 hours: 32 % (normal < 60%) 3 hours: 2 % (normal < 21%) Impression: Normal gastric emptying of solid meal. Dose: 0.5 mCi technetium 99m sulfur colloid in egg sandwich. . Dictated by: RIC STRICKLAND 06/21/2007 13:59 Electronically signed by: RIC STRICKLAND 06/21/2007 14:00 Jacqueline Devlin MD NM ORDERABLES Final R esult documented in this encounter Visit Diagnoses Diagnosis Nausea alone documented in this encounter Additional Health Concerns Infection Onset Date Last Indicated Resolved Time R/O COVID-19 12/28/2019 12/28/2019 12/30/2019 5:45 AM CDT COVID-19 12/28/2019 12/28/2019 01/27/2020 1:16 AM CDT documented as of this encounter Care Teams Visual Merchandising Assistant Relationship Specialty [place] [address] [facility] [address] [place] [address] PCP - General Internal Medicine 02/18/21 documented as of this encounter
--- OUTSIDE RECORDS SUMMARY | 2024-05-18 09:13 | XMS_ITS | Encounter Summary ---
Author Organization [facility] Address [address] [facility] Attn: Epic Prelude ADT [place] [address] Care Team Providers Care Home Day Care Provider Name Role Phone Kerwin Quiroga MD Primary Care Provider +1- [phone] Encounter Details Date Type Department Care Team (Late st Contact Info) Description 10/06/1994 Outpatient Historical Jeremías Farias MD NO ADDRESS ON FILE Social History Tobacco Use Types Packs/Day Years Used Date Smoking Tobacco: Never Assessed Comments Unknown Sex and Gender Information Value Date Recorded Sex Assigned at Not on file Legal Sex Female 4:29 AM POEM WRITER Gender Identity Not on file Sexual Orientation Not on file documented as of this encounter Plan of Treatment Upcoming Encounters Date Type Department Care Team (Late st Contact Info) Description 05/20/2024 9:30 AM POEM WRITER Office Visit [facility] Internal Medicine Phuong Mahoney [address] [place] [address] [place] [address] [place] [address] 05/24/2024 11:45 AM POEM WRITER Office Visit [facility] Oncology and Hematology - [address] [place] [address] Nelson Cazares MD [address] [facility] [address] [place] [address] 06/07/2024 12:00 PM CDT Appointment [facility] [address] [place] [address] [place] [address] [place] [phone] 06/07/2024 1:05 PM CDT Office Visit [facility] Breast Surgery Jazmin Couch [address] [place] [address] [place] [address] [place] [address] 06/20/2024 8:30 AM CDT Office Visit [facility] Internal Medicine Phuong Denzel [address] [place] [address] [place] [address] [place] [address] 06/20/2024 11:15 AM CDT Office Visit [facility] Endocrinology [address] [facility] [address] [place] [address] Shanice Llamas MD [address] [facility] [address] [place] [address] 12/08/2024 11:00 AM CDT Office Visit [facility] Heart and Vascular - [facility] [address] [place] [address] Nam Coto MD [address] [facility] [address] [place] [address] documented as of this encounter Visit Diagnoses Not on filedocumented in this encounter Additional Health Concerns Infection Onset Date Last Indicated Resolved Time R/O COVID-19 12/28/2019 12/28/2019 12/30/2019 5:45 AM CDT COVID-19 12/28/2019 12/28/2019 01/27/2020 1:16 AM CDT documented as of this encounter Care Teams Home Day Care Provider Relationship Specialty [place] [address] [facility] [address] [place] [address] PCP - General Internal Medicine 02/18/21 documented as of this encounter
--- OUTSIDE RECORDS SUMMARY | 2024-05-18 09:13 | XMS_ITS | Encounter Summary ---
Author Organization [facility] Address [address] [place] [address] Care Team Providers Care Stretcher Leveler Operator Helper Name Role Phone Kerwin Quiroga MD Primary Care Provider +1- [phone] Encounter Details Date Type Department Care Team (Late st Contact Info) Description 05/23/2002 Outpatient Historical HIS [facility] Jeremías Farias MD NO ADDRESS ON FILE Social History Tobacco Use Types Packs/Day Years Used Date Smoking Tobacco: Never Assessed Comments Unknown Sex and Gender Information Value Date Recorded Sex Assigned at Not on file Legal Sex Female 4:29 AM DIANETICIST Gender Identity Not on file Sexual Orientation Not on file documented as of this encounter Plan of Treatment Upcoming Encounters Date Type Department Care Team (Late st Contact Info) Description 05/20/2024 9:30 AM DIANETICIST Office Visit [facility] Internal Medicine Phuong Denzel [address] [place] [address] [place] [address] [address] [facility] [place] [address] 05/24/2024 11:45 AM DIANETICIST Office Visit [facility] Oncology and Hematology - Par[address] [place] [address] Nelson Cazares MD [address] [facility] [address] [place] [address] 06/07/2024 12:00 PM CDT Appointment [facility] [address] [place] [address] [place] [address] [place] [phone] 06/07/2024 1:05 PM CDT Office Visit [facility] Breast Surgery Jazmin Couch [address] [place] [address] [place] [address] [place] [address] 06/20/2024 8:30 AM CDT Office Visit [facility] Internal Medicine Phuong Denzel [address] [address] [facility] [address] [place] [address] [place] [address] [place] [address] 06/20/2024 11:15 AM CDT Office Visit [facility] Endocrinology [address] [place] [address] Shanice Llamas MD [address] [place] [address] 12/08/2024 11:00 AM CDT Office Visit [facility] Heart and Vascular - [facility] [address] [place] [address] Nam Coto MD [address] [facility] [facility] [address] [place] [address] documented as of this encounter Visit Diagnoses Not on filedocumented in this encounter Additional Health Concerns Infection Onset Date Last Indicated Resolved Time R/O COVID-19 12/28/2019 12/28/2019 12/30/2019 5:45 AM CDT COVID-19 12/28/2019 12/28/2019 01/27/2020 1:16 AM CDT documented as of this encounter Care Teams Stretcher Leveler Operator Helper Relationship Specialty [place] [address] [facility] [address] [place] [address] PCP - General Internal Medicine 02/18/21 documented as of this encounter
--- OUTSIDE RECORDS SUMMARY | 2024-05-18 09:13 | XMS_ITS | Encounter Summary ---
Author Organization [facility] Address [address] [place] [address] Care Team Providers Care Foster Care Worker Name Role Phone Kerwin Quiroga MD Primary Care Provider +1- [phone] Encounter Details Date Type Department Care Team (Latest Contact Info) Description 05/03/1998 Outpatient Historical HIS [facility] Jeremías Torres MD NO ADDRESS ON FILE Abdominal pain, unspecified site (Primary Dx) Social History Tobacco Use Types Packs/Day Years Used Date Smoking Tobacco: Never Assessed Comments Unknown Sex and Gender Information Value Date Recorded Sex Assigned at Not on file Legal Sex Female 4:29 AM WOOD PILE DRIVER OPERATOR Gender Identity Not on file Sexual Orientation Not on file documented as of this encounter Plan of Treatment Upcoming Encounters Date Type Department Care Team (Late st Contact Info) Description 05/20/2024 9:30 AM WOOD PILE DRIVER OPERATOR Office Visit [facility] Internal Medicine Phuong Mahoney [address] [facility] [address] [place] [address] [place] [address] [address] [facility] [address] [facility] [place] [place] [address] 05/24/2024 11:45 AM WOOD PILE DRIVER OPERATOR Office Visit [facility] Oncology and Hematology - Par[address] [place] [address] Nelson Cazares MD [address] [facility] [address] [place] [address] 06/07/2024 12:00 PM CDT Appointment [facility] Jazmin [address] [place] [address] [place] [address] [place] [phone] 06/07/2024 1:05 PM CDT Office Visit [facility] Breast Surgery Jazmin Couch [address] [place] [address] [place] [address] [place] [address] 06/20/2024 8:30 AM CDT Office Visit [facility] Internal Medicine Phuong Denzel [address] [place] [address] [place] [address] [place] [address] 06/20/2024 11:15 AM CDT Office Visit [facility] Endocrinology [address] [place] [address] Shanice Llamas MD [address] [place] [address] 12/08/2024 11:00 AM CDT Office Visit [facility] Heart and Vascular - [facility] [address] [place] [address] Nam Coto MD [address] [facility] [address] [place] [address] documented as of this encounter Visit Diagnoses Diagnosis Abdominal pain, unspecified site- Primary documented in this encounter Additional Health Concerns Infection Onset Date Last Indicated Resolved Time R/O COVID-19 12/28/2019 12/28/2019 12/30/2019 5:45 AM CDT COVID-19 12/28/2019 12/28/2019 01/27/2020 1:16 AM CDT documented as of this encounter Care Teams Foster Care Worker Relationship Specialty [place] [address] [facility] [address] [place] [address] PCP - General Internal Medicine 02/18/21 documented as of this encounter
--- OUTSIDE RECORDS SUMMARY | 2024-05-18 09:13 | XMS_ITS | Encounter Summary ---
Author Organization [facility] Address [address] [place] [address] Care Team Providers Care It Infrastructure Engineer Name Role Phone Kerwin Quiroga MD Primary Care Provider +1- [phone] Encounter Details Date Type Department Care Team (Latest Contact Info) Description 01/10/2002 Outpatient Historical HIS [facility] Jeremías Torres MD NO ADDRESS ON FILE BENIGN HYPERTENSION (Primary Dx) Social History Tobacco Use Types Packs/Day Years Used Date Smoking Tobacco: Never Assessed Comments Unknown Sex and Gender Information Value Date Recorded Sex Assigned at Not on file Legal Sex Female 4:29 AM BULLET CHARGING MACHINE OPERATOR Gender Identity Not on file Sexual Orientation Not on file documented as of this encounter Plan of Treatment Upcoming Encounters Date Type Department Care Team (Late st Contact Info) Description 05/20/2024 9:30 AM BULLET CHARGING MACHINE OPERATOR Office Visit [facility] Internal Medicine Phuong Mahoney [address] [facility] [address] [place] [address] [place] [address] [address] [facility] [address] [facility] [place] [address] 05/24/2024 11:45 AM BULLET CHARGING MACHINE OPERATOR Office Visit [facility] Oncology and Hematology - Paras [address] [place] [address] Nelson Cazares MD [address] [facility] [address] [place] [address] 06/07/2024 12:00 PM CDT Appointment [facility] [address] [place] [address] [place] [address] [place] [phone] 06/07/2024 1:05 PM CDT Office Visit [facility] Breast Surgery Jazmin Couch [address] [place] [address] [place] [address] [place] [address] 06/20/2024 8:30 AM CDT Office Visit [facility] Internal Medicine [address] [facility] [address] [place] [address] [place] [address] [place] [address] 06/20/2024 11:15 AM CDT Office Visit [facility] Endocrinology [address] [place] [address] Shanice Llamas MD [address] [facility] [address] [place] [address] 12/08/2024 11:00 AM CDT Office Visit [facility] Heart and Vascular - [facility] [address] [place] [address] Nam Coto MD [address] [facility] [address] [place] [address] documented as of this encounter Visit Diagnoses Diagnosis Essential hypertension, benign- Primary documented in this encounter Additional Health Concerns Infection Onset Date Last Indicated Resolved Time R/O COVID-19 12/28/2019 12/28/2019 12/30/2019 5:45 AM CDT COVID-19 12/28/2019 12/28/2019 01/27/2020 1:16 AM CDT documented as of this encounter Care Teams It Infrastructure Engineer Relationship Specialty [place] [address] [facility] [address] [place] [address] PCP - General Internal Medicine 02/18/21 documented as of this encounter
--- OUTSIDE RECORDS SUMMARY | 2024-05-18 09:13 | XMS_ITS | Encounter Summary ---
Author Organization [facility] Address [address] [place] [address] Care Team Providers Care Junior Designer Name Role Phone Kerwin Quiroga MD Primary Care Provider +1- [phone] Encounter Details Date Type Department Care Team (Late st Contact Info) Description 12/27/2002 Outpatient Historical HIS [facility] Fabio Anderson MD NO ADDRESS ON FILE Social History Tobacco Use Types Packs/Day Years Used Date Smoking Tobacco: Never Assessed Comments Unknown Sex and Gender Information Value Date Recorded Sex Assigned at Not on file Legal Sex Female 4:29 AM FUSE MAKER Gender Identity Not on file Sexual Orientation Not on file documented as of this encounter Plan of Treatment Upcoming Encounters Date Type Department Care Team (Late st Contact Info) Description 05/20/2024 9:30 AM FUSE MAKER Office Visit [facility] Internal Medicine Phuong Denzel [address] [address] [facility] [address] [place] [address] [place] [address] [address] [facility] [place] [address] 05/24/2024 11:45 AM FUSE MAKER Office Visit [facility] Oncology and Hematology - Par[address] [place] [address] Nelson Cazares MD [address] [facility] [address] [place] [address] 06/07/2024 12:00 PM CDT Appointment [facility] [address] [place] [address] [place] [address] [place] [address] 06/07/2024 1:05 PM CDT Office Visit [facility] Breast Surgery Jazmin Couch [address] [place] [address] [place] [address] [place] [address] 06/20/2024 8:30 AM CDT Office Visit [facility] Internal Medicine Phuong Denzel [address] [facility] [address] [place] [address] [place] [address] [place] [address] 06/20/2024 11:15 AM CDT Office Visit [facility] Endocrinology [address] [place] [address] Shanice Llamas MD [address] [facility] [address] [place] [address] 12/08/2024 11:00 AM CDT Office Visit [facility] Heart and Vascular - [facility] [address] [facility] [address] [place] [address] Nam Coto MD [address] [facility] [address] [place] [address] documented as of this encounter Visit Diagnoses Not on filedocumented in this encounter Additional Health Concerns Infection Onset Date Last Indicated Resolved Time R/O COVID-19 12/28/2019 12/28/2019 12/30/2019 5:45 AM CDT COVID-19 12/28/2019 12/28/2019 01/27/2020 1:16 AM CDT documented as of this encounter Care Teams Junior Designer Relationship Specialty Start [place] [address] [facility] [address] [place] [address] PCP - General Internal Medicine 02/18/21 documented as of this encounter
--- OUTSIDE RECORDS SUMMARY | 2024-05-18 09:13 | XMS_ITS | Encounter Summary ---
Author Organization [facility] Address [address] [facility] Attn: Epic Prelude ADT [place] [address] Care Team Providers Care Land Clearer Name Role Phone Kerwin Quiroga MD Primary Care Provider +1- [phone] Encounter Details Date Type Department Care Team (Late st Contact Info) Description 10/15/1995 Outpatient Historical Jeremías Farias MD NO ADDRESS ON FILE Social History Tobacco Use Types Packs/Day Years Used Date Smoking Tobacco: Never Assessed Comments Unknown Sex and Gender Information Value Date Recorded Sex Assigned at Not on file Legal Sex Female 4:29 AM PRINCIPAL DEVELOPER Gender Identity Not on file Sexual Orientation Not on file documented as of this encounter Plan of Treatment Upcoming Encounters Date Type Department Care Team (Late st Contact Info) Description 05/20/2024 9:30 AM PRINCIPAL DEVELOPER Office Visit [facility] Internal Medicine Phuong Mahoney [address] [place] [phone] [place] [address] [place] [address] 05/24/2024 11:45 AM PRINCIPAL DEVELOPER Office Visit [facility] Oncology and Hematology - Paras [address] [place] [address] Nelson Cazares MD [address] [facility] [address] [place] [address] 06/07/2024 12:00 PM CDT Appointment [facility] J[address] [place] [address] [place] [address] [place] [phone] 06/07/2024 1:05 PM CDT Office Visit [facility] Breast Surgery Jazmin Couch [address] [place] [address] [place] [address] [place] [address] 06/20/2024 8:30 AM CDT Office Visit [facility] Internal Medicine Phuong Denzel [address] [place] [address] [place] [address] [place] [address] 06/20/2024 11:15 AM CDT Office Visit [facility] Endocrinology [address] [place] [address] Shanice Llamas MD [address] [place] [address] 12/08/2024 11:00 AM CDT Office Visit [facility] Heart and Vascular - Old [facility] [address] [address] [place] [address] Nam Coto MD [address] [facility] [address] [place] [address] documented as of this encounter Visit Diagnoses Not on filedocumented in this encounter Additional Health Concerns Infection Onset Date Last Indicated Resolved Time R/O COVID-19 12/28/2019 12/28/2019 12/30/2019 5:45 AM CDT COVID-19 12/28/2019 12/28/2019 01/27/2020 1:16 AM CDT documented as of this encounter Care Teams Land Clearer Relationship Specialty [place] [address] [facility] [address] [place] [address] PCP - General Internal Medicine 02/18/21 documented as of this encounter
--- OUTSIDE RECORDS SUMMARY | 2024-05-18 09:13 | XMS_ITS | Encounter Summary ---
Author Organization [facility] Address [address] [facility] Attn: Epic Prelude ADT [place] [address] Care Team Providers Care Restrooms Or Lounges Maid Name Role Phone Kerwin Quiroga MD Primary Care Provider +1- [phone] Encounter Details Date Type Department Care Team (Late Contact Info) Description 10/07/1993 Outpatient Historical Jeremías Farias MD NO ADDRESS ON FILE Social History Tobacco Use Types Packs/Day Years Used Date Smoking Tobacco: Never Assessed Comments Unknown Sex and Gender Information Value Date Recorded Sex Assigned at Not on file Legal Sex Female 4:29 AM DIE REPAIRER TRIMMER DIES Gender Identity Not on file Sexual Orientation Not on file documented as of this encounter Plan of Treatment Upcoming Encounters Date Type Department Care Team (Late st Contact Info) Description 05/20/2024 9:30 AM DIE REPAIRER TRIMMER DIES Office Visit [facility] Internal Medicine Phuong Mahoney [address] [place] [phone] [place] [address] [place] [phone] 05/24/2024 11:45 AM DIE REPAIRER TRIMMER DIES Office Visit [facility] Oncology and Hematology - Paras [address] [place] [address] Nelson Cazares MD [address] [facility] [address] [place] [address] 06/07/2024 12:00 PM CDT Appointment [facility] [address] [place] [address] [place] [address] [place] [phone] 06/07/2024 1:05 PM CDT Office Visit [facility] Breast Surgery Jazmin Couch [address] [place] [address] [place] [address] [place] [address] 06/20/2024 8:30 AM CDT Office Visit [facility] Internal Medicine Phuong Denzel [address] [place] [address] [place] [address] [place] [address] 06/20/2024 11:15 AM CDT Office Visit [facility] Endocrinology [address] [place] [address] Shanice Llamas MD [address] [place] [address] 12/08/2024 11:00 AM CDT Office Visit [facility] Heart and Vascular - Old [facility] [address] [place] [address] Nam Coto MD [address] [facility] [address] [place] [address] documented as of this encounter Visit Diagnoses Not on filedocumented in this encounter Additional Health Concerns Infection Onset Date Last Indicated Resolved Time R/O COVID-19 12/28/2019 12/28/2019 12/30/2019 5:45 AM CDT COVID-19 12/28/2019 12/28/2019 01/27/2020 1:16 AM CDT documented as of this encounter Care Teams Restrooms Or Lounges Maid Relationship Specialty [place] [address] [facility] [address] [place] [address] PCP - General Internal Medicine 02/18/21 documented as of this encounter
--- OUTSIDE RECORDS SUMMARY | 2024-05-18 09:13 | XMS_ITS | Encounter Summary ---
Author Organization [facility] Address [address] [place] [address] Care Team Providers Care Leaf Tier Name Role Phone Kerwin Quiroga MD Primary Care Provider +1- [phone] Encounter Details Date Type Department Care Team (Late st Contact Info) Description 04/02/1999 Outpatient Historical [facility] Jeremías Farias MD NO ADDRESS ON FILE Social History Tobacco Use Types Packs/Day Years Used Date Smoking Tobacco: Never Assessed Comments Unknown Sex and Gender Information Value Date Recorded Sex Assigned at Not on file Legal Sex Female 4:29 AM TOE LASTER Gender Identity Not on file Sexual Orientation Not on file documented as of this encounter Plan of Treatment Upcoming Encounters Date Type Department Care Team (Late st Contact Info) Description 05/20/2024 9:30 AM TOE LASTER Office Visit [facility] Internal Medicine Phuong Denzel [address] [place] [address] [place] [address] [facility] [place] [phone] 05/24/2024 11:45 AM TOE LASTER Office Visit [facility] Oncology and Hematology - Paras [address] [facility] [address] [place] [address] Nelson Cazares MD [address] [facility] [address] [place] [address] 06/07/2024 12:00 PM CDT Appointment [facility] [address] [place] [address] [place] [address] [place] [phone] 06/07/2024 1:05 PM CDT Office Visit [facility] Breast Surgery Jazmin Couch [address] [place] [address] [place] [address] [place] [address] 06/20/2024 8:30 AM CDT Office Visit [facility] Internal Medicine [address] [facility] [address] [place] [address] [place] [address] [place] [address] 06/20/2024 11:15 AM CDT Office Visit [facility] Endocrinology [address] [place] [address] Shanice Llamas MD [address] [facility] [address] [place] [address] 12/08/2024 11:00 AM CDT Office Visit [facility] Heart and Vascular - [facility] [address] [place] [address] Nam Coto MD [address] [facility] [address] [place] [address] documented as of this encounter Visit Diagnoses Not on filedocumented in this encounter Additional Health Concerns Infection Onset Date Last Indicated Resolved Time R/O COVID-19 12/28/2019 12/28/2019 12/30/2019 5:45 AM CDT COVID-19 12/28/2019 12/28/2019 01/27/2020 1:16 AM CDT documented as of this encounter Care Teams Leaf Tier Relationship Specialty [place] [address] [facility] [address] [place] [address] PCP - General Internal Medicine 02/18/21 documented as of this encounter
--- OUTSIDE RECORDS SUMMARY | 2024-05-18 09:13 | XMS_ITS | Encounter Summary ---
Author Organization [facility] Address [address] [facility] Attn: Epic Prelude ADT [place] [address] Care Team Providers Care Procurement Director Name Role Phone Kerwin Quiroga MD Primary Care Provider +1- [phone] Encounter Details Date Type Department Care Team (Late st Contact Info) Description 03/02/1995 Outpatient Historical Jeremías Farias MD NO ADDRESS ON FILE Social History Tobacco Use Types Packs/Day Years Used Date Smoking Tobacco: Never Assessed Comments Unknown Sex and Gender Information Value Date Recorded Sex Assigned at Not on file Legal Sex Female 4:29 AM CASE MANAGERS Gender Identity Not on file Sexual Orientation Not on file documented as of this encounter Plan of Treatment Upcoming Encounters Date Type Department Care Team (Late st Contact Info) Description 05/20/2024 9:30 AM CASE MANAGERS Office Visit [facility] Internal Medicine Phuong Mahoney [address] [place] [phone] [place] [address] [place] [address] 05/24/2024 11:45 AM CASE MANAGERS Office Visit [facility] Oncology and Hematology - Paras [address] [place] [address] Nelson Cazares MD [address] [facility] [address] [place] [address] 06/07/2024 12:00 PM CDT Appointment [facility] [address] [place] [address] [place] [address] [place] [phone] 06/07/2024 1:05 PM CDT Office Visit [facility] Breast Surgery Jazmin Couch [address] [place] [address] [place] [address] [place] [address] 06/20/2024 8:30 AM CDT Office Visit [facility] Internal Medicine [address]uong Denzel [address] [place] [address] [place] [address] [place] [address] 06/20/2024 11:15 AM CDT Office Visit [facility] Endocrinology [address] [place] [address] Shanice Llamas MD [address] [place] [address] 12/08/2024 11:00 AM CDT Office Visit [facility] Heart and Vascular - Old [facility] [address] [place] [address] Nam Coto MD [address] [facility] [address] [place] [address] documented as of this encounter Visit Diagnoses Not on filedocumented in this encounter Additional Health Concerns Infection Onset Date Last Indicated Resolved Time R/O COVID-19 12/28/2019 12/28/2019 12/30/2019 5:45 AM CDT COVID-19 12/28/2019 12/28/2019 01/27/2020 1:16 AM CDT documented as of this encounter Care Teams Procurement Director Relationship Specialty [place] [address] [facility] [address] [place] [address] PCP - General Internal Medicine 02/18/21 documented as of this encounter
--- OUTSIDE RECORDS SUMMARY | 2024-05-18 09:13 | XMS_ITS | Encounter Summary ---
Author Organization [facility] Address [address] [facility] Attn: Epic Prelude ADT [place] [address] Care Team Providers Care Groover And Striper Operator Name Role Phone Kerwin Quiroga MD Primary Care Provider +1- [phone] Encounter Details Date Type Department Care Team (Late st Contact Info) Description 07/01/1993 Outpatient Historical Jeremías Farias MD NO ADDRESS ON FILE Social History Tobacco Use Types Packs/Day Years Used Date Smoking Tobacco: Never Assessed Comments Unknown Sex and Gender Information Value Date Recorded Sex Assigned at Not on file Legal Sex Female 4:29 AM ADMITTING MANAGER Gender Identity Not on file Sexual Orientation Not on file documented as of this encounter Plan of Treatment Upcoming Encounters Date Type Department Care Team (Late st Contact Info) Description 05/20/2024 9:30 AM ADMITTING MANAGER Office Visit [facility] Internal Medicine Phuong Mahoney [address] [place] [phone] [place] [address] [place] [address] 05/24/2024 11:45 AM ADMITTING MANAGER Office Visit [facility] Oncology and Hematology - Paras [address] [place] [address] Nelson Cazares MD [address] [facility] [address] [place] [address] 06/07/2024 12:00 PM CDT Appointment [facility] [address] [place] [address] [place] [address] [place] [phone] 06/07/2024 1:05 PM CDT Office Visit [facility] Breast Surgery Jazmin Couch [address] [place] [address] [place] [address] [place] [address] 06/20/2024 8:30 AM CDT Office Visit [facility] Internal Medicine Phuong Denzel [address] [place] [address] [place] [address] [place] [address] 06/20/2024 11:15 AM CDT Office Visit [facility] Endocrinology [address] [place] [address] Shanice Llamas MD [address] [place] [address] 12/08/2024 11:00 AM CDT Office Visit [facility] Heart and Vascular - [facility] [address] [place] [address] Nam Coto MD [address] [facility] [address] [place] [address] documented as of this encounter Visit Diagnoses Not on filedocumented in this encounter Additional Health Concerns Infection Onset Date Last Indicated Resolved Time R/O COVID-19 12/28/2019 12/28/2019 12/30/2019 5:45 AM CDT COVID-19 12/28/2019 12/28/2019 01/27/2020 1:16 AM CDT documented as of this encounter Care Teams Groover And Striper Operator Relationship Specialty [place] [address] [facility] [address] [place] [address] PCP - General Internal Medicine 02/18/21 documented as of this encounter
--- OUTSIDE RECORDS SUMMARY | 2024-05-18 09:13 | XMS_ITS | Encounter Summary ---
Author Organization [facility] Address [address] Chambers: Epic Prelude ADT [place] [address] Care Team Providers Care Charting Clerk Name Role Phone Kerwin Quiroga MD Primary Care Provider +1- [phone] Encounter Details Date Type Department Care Team (Latest Contact Info) Description 05/21/2007 Orders Only Yasemin Davis MD Social History Tobacco Use Types Packs/Day Years Used Date Smoking Tobacco: Never Assessed Comments Unknown Sex and Gender Information Value Date Recorded Sex Assigned at Not on file Legal Sex Female 4:29 AM BOILER SERVICE TECHNICIAN Gender Identity Not on file Sexual Orientation Not on file documented as of this encounter Progress Notes * Interface, Emiliano Stl Conv Transcriptions - 08/11/2007 2:24 PM CDT TIME:09:02 am PATIENT`S HOME PHONE: PATIENT`S WORK PHONE: PATIENT`S INSURANCE: [email or web address] [facility] WHO TOOK THE CALL: Rolanda Gong N GENERAL INFORMATION PCP: CORTNEY. ALTERNATIVE PHONE NUMBER: [phone] WHO CALLED: Patient called. PHARMACY NUMBER: [phone] SECTION 1: REQUESTED ACTION duane 05/21/07 at 09:03 am: Patient called with c/o fever, bloody when she blows her nose, dry cough. This started one week ago. She has taken Tylenol Cold with no relief. She wouldlike to get something called in to her pharmacy. DOCTOR`S RESPONSE: saenpp 05/21/07 at 09:05 am MEDICATIONS: Call in to Pharmacy ZITHROMAX Z-KYLE ORAL TABLET 250 MG, 2 tabs first day, then 1 tab daily, 1 Dispensed, status: NEW PRESCRIPTION, 05/21/2007. if she does not improve, she needs to come in and see me. FINAL ACTION: ignacio 05/21/07 at 09:07 am Spoke with patient 05/21/07 at 09:07 am. informed her of message and rx above. Pt voices understanding Called pharmacy at 05/21/07 at 09:07 am. Electronically Signed by: Ramya Bustillos on Monday, May 21, 2007 documented in this encounter Plan of Treatment Upcoming Encounters Date Type Department Care Team (Late st Contact Info) Description 05/20/2024 9:30 AM BOILER SERVICE TECHNICIAN Office Visit [facility] Internal Medicine Phuong Mahoney [address] [facility] [address] [place] [address] [place] [address] [facility] [address] [facility] [place] [phone] 05/24/2024 11:45 AM BOILER SERVICE TECHNICIAN Office Visit [facility] Oncology and Hematology - Paras [address] [facility] [address] [place] [address] Nelson Cazares MD [address] [facility] [address] [place] [address] 06/07/2024 12:00 PM CDT Appointment [facility] [address]azmin [address] [place] [address] [place] [address] [place] [address] 06/07/2024 1:05 PM CDT Office Visit [facility] Breast Surgery Jazmin Couch [address] [place] [phone] [place] [address] [place] [address] 06/20/2024 8:30 AM CDT Office Visit [facility] Internal Medicine [address]ong Mahoney [address] [facility] [address] [place] [address] [place] [address] [facility] [address] [place] [address] 06/20/2024 11:15 AM CDT Office Visit [facility] Endocrinology [address] [place] [address] Shanice Llamas MD [address] [facility] [address] [place] [address] 12/08/2024 11:00 AM CDT Office Visit [facility] Heart and Vascular - [facility] [address] [facility] [facility] [place] [address] Nam Coto MD [address] [place] [address] documented as of this encounter Visit Diagnoses Not on filedocumented in this encounter Additional Health Concerns Infection Onset Date Last Indicated Resolved Time R/O COVID-19 12/28/2019 12/28/2019 12/30/2019 5:45 AM CDT COVID-19 12/28/2019 12/28/2019 01/27/2020 1:16 AM CDT documented as of this encounter Care Teams Charting Clerk Relationship Specialty [place] [address] [place] [address] PCP - General Internal Medicine 02/18/21 documented as of this encounter
--- OUTSIDE RECORDS SUMMARY | 2024-05-18 09:13 | XMS_ITS | Encounter Summary ---
Author Organization [facility] Address [address] [place] [address] Care Team Providers Care Community Director Name Role Phone Kerwin Quiroga MD Primary Care Provider +1- [phone] Encounter Details Date Type Department Care Team (Late st Contact Info) Description 05/29/1999 Outpatient Historical [facility] Jeremías Farias MD NO ADDRESS ON FILE Social History Tobacco Use Types Packs/Day Years Used Date Smoking Tobacco: Never Assessed Comments Unknown Sex and Gender Information Value Date Recorded Sex Assigned at Not on file Legal Sex Female 4:29 AM BRICK OFF BEARER Gender Identity Not on file Sexual Orientation Not on file documented as of this encounter Plan of Treatment Upcoming Encounters Date Type Department Care Team (Late st Contact Info) Description 05/20/2024 9:30 AM BRICK OFF BEARER Office Visit [facility] Internal Medicine Phuong Denzel [address] [place] [address] [place] [address] [address] [facility] [place] [address] 05/24/2024 11:45 AM BRICK OFF BEARER Office Visit [facility] Oncology and Hematology - Paras [address] [facility] [address] [place] [address] Nelson Cazares MD [address] [facility] [address] [place] [address] 06/07/2024 12:00 PM CDT Appointment [facility] [address] [place] [address] [place] [address] [place] [phone] 06/07/2024 1:05 PM CDT Office Visit [facility] Breast Surgery Jazmin Couch [address] [place] [address] [place] [address] [place] [address] 06/20/2024 8:30 AM CDT Office Visit [facility] Internal Medicine Phuong Denzel [address] [facility] [address] [place] [address] [place] [address] [place] [address] 06/20/2024 11:15 AM CDT Office Visit [facility] Endocrinology [address] [facility] [address] [place] [address] Shanice Llamas MD [address] [facility] [address] [facility] [address] [place] [address] 12/08/2024 11:00 AM CDT Office Visit [facility] Heart and Vascular - [facility] [address] [place] [address] Nam Coto MD [address] [facility] [address] [place] [address] documented as of this encounter Visit Diagnoses Not on filedocumented in this encounter Additional Health Concerns Infection Onset Date Last Indicated Resolved Time R/O COVID-19 12/28/2019 12/28/2019 12/30/2019 5:45 AM CDT COVID-19 12/28/2019 12/28/2019 01/27/2020 1:16 AM CDT documented as of this encounter Care Teams Community Director Relationship Specialty [place] [address] [facility] [address] [place] [address] PCP - General Internal Medicine 02/18/21 documented as of this encounter
--- OUTSIDE RECORDS SUMMARY | 2024-05-18 09:13 | XMS_ITS | Encounter Summary ---
Author Organization [facility] Address [address] [place] [address] Care Team Providers Care 3Rd Pressman Name Role Phone Kerwin Quiroga MD Primary Care Provider +1- [phone] Encounter Details Date Type Department Care Team (Late st Contact Info) Description 12/30/2000 Outpatient Historical HIS [facility] INTERNISTS Jeremías Farias MD NO ADDRESS ON FILE Social History Tobacco Use Types Packs/Day Years Used Date Smoking Tobacco: Never Assessed Comments Unknown Sex and Gender Information Value Date Recorded Sex Assigned at Not on file Legal Sex Female 4:29 AM RESUME WRITER Gender Identity Not on file Sexual Orientation Not on file documented as of this encounter Plan of Treatment Upcoming Encounters Date Type Department Care Team (Late st Contact Info) Description 05/20/2024 9:30 AM RESUME WRITER Office Visit [facility] Internal Medicine Phuong Denzel [address] [place] [address] [place] [address] [facility] [place] [address] 05/24/2024 11:45 AM RESUME WRITER Office Visit [facility] Oncology and Hematology - Paras [address] [facility] [address] [place] [address] Nelson Cazares MD [address] [facility] [address] [place] [address] 06/07/2024 12:00 PM CDT Appointment [facility] [address] [place] [address] [place] [address] [place] [phone] 06/07/2024 1:05 PM CDT Office Visit [facility] Breast Surgery Jazmin Couch [address] [place] [address] [place] [address] [place] [address] 06/20/2024 8:30 AM CDT Office Visit [facility] Internal Medicine Phuong Denzel [address] [facility] [address] [place] [address] [place] [address] [place] [address] 06/20/2024 11:15 AM CDT Office Visit [facility] Endocrinology [address] [place] [address] Shanice Llamas MD [address] [place] [address] 12/08/2024 11:00 AM CDT Office Visit [facility] Heart and Vascular - [facility] [address] [facility] [address] [place] [address] Nam Coto MD [address] [facility] [address] [place] [address] documented as of this encounter Visit Diagnoses Not on filedocumented in this encounter Additional Health Concerns Infection Onset Date Last Indicated Resolved Time R/O COVID-19 12/28/2019 12/28/2019 12/30/2019 5:45 AM CDT COVID-19 12/28/2019 12/28/2019 01/27/2020 1:16 AM CDT documented as of this encounter Care Teams 3Rd Pressman Relationship Specialty [place] [address] [facility] [address] [place] [address] PCP - General Internal Medicine 02/18/21 documented as of this encounter
--- OUTSIDE RECORDS SUMMARY | 2024-05-18 09:13 | XMS_ITS | Encounter Summary ---
Author Organization [facility] Address [address] [place] [address] Care Team Providers Care Automotive Machinist Apprentice Name Role Phone Kerwin Quiroga MD Primary Care Provider +1- [phone] Encounter Details Date Type Department Care Team (Latest Contact Info) Description 03/21/2002 Outpatient Historical HIS [facility] Jeremías Torres MD NO ADDRESS ON FILE URIN TRACT INFECTION NOS (Primary Dx) Social History Tobacco Use Types Packs/Day Years Used Date Smoking Tobacco: Never Assessed Comments Unknown Sex and Gender Information Value Date Recorded Sex Assigned at Not on file Legal Sex Female 4:29 AM FINANCIAL AID Gender Identity Not on file Sexual Orientation Not on file documented as of this encounter Plan of Treatment Upcoming Encounters Date Type Department Care Team (Late st Contact Info) Description 05/20/2024 9:30 AM FINANCIAL AID Office [facility] Internal Medicine Phuong Mahoney [address] [facility] [address] [place] [address] [place] [address] [address] [facility] [address] [facility] [place] [address] 05/24/2024 11:45 AM FINANCIAL AID Office [facility] Oncology and Hematology - Paras [address] [place] [address] Nelson Cazares MD [address] [facility] [address] [place] [address] 06/07/2024 12:[address] [facility] [address] [place] [address] [place] [address] [place] [phone] 06/07/2024 1:05 PM CDT Office Visit [facility] Breast Surgery Jazmin Couch [address] [place] [address] [place] [address] [place] [address] 06/20/2024 8:30 AM CDT Office Visit [facility] Internal Medicine Phuong Denzel [address] [facility] [address] [place] [address] [place] [address] [place] [address] 06/20/2024 11:15 AM CDT Office Visit [facility] Endocrinology [address] [place] [address] Shanice Llamas MD [address] [place] [address] 12/08/2024 11:00 AM CDT Office [facility] Heart and Vascular - [facility] [address] [place] [address] Nam Coto MD [address] [place] [address] documented as of this encounter Visit Diagnoses Diagnosis Urinary tract infection, site not specified- Primary documented in this encounter Additional Health Concerns Infection Onset Date Last Indicated Resolved Time R/O COVID-19 12/28/2019 12/28/2019 12/30/2019 5:45 AM CDT COVID-19 12/28/2019 12/28/2019 01/27/2020 1:16 AM CDT documented as of this encounter Care Teams Automotive Machinist Apprentice Relationship Specialty [place] [address] [facility] [address] [place] [address] PCP - General Internal Medicine 02/18/21 documented as of this encounter
--- OUTSIDE RECORDS SUMMARY | 2024-05-18 09:13 | XMS_ITS | Encounter Summary ---
Author Organization [facility] Address [address] [place] [address] Care Team Providers Care Freight Receiver Name Role Phone Kerwin Quiroga MD Primary Care Provider +1- [phone] Encounter Details Date Type Department Care Team (Latest Contact Info) Description 05/11/2001 Outpatient Historical HIS [facility] Jeremías Torres MD NO ADDRESS ON FILE BENIGN HYPERTENSION (Primary Dx) Social History Tobacco Use Types Packs/Day Years Used Date Smoking Tobacco: Never Assessed Comments Unknown Sex and Gender Information Value Date Recorded Sex Assigned at Not on file Legal Sex Female 4:29 AM KNOTTER HAND Gender Identity Not on file Sexual Orientation Not on file documented as of this encounter Plan of Treatment Upcoming Encounters Date Type Department Care Team (Late st Contact Info) Description 05/20/2024 9:30 AM KNOTTER HAND Office Visit [facility] Internal Medicine Phuong Mahoney [address] [facility] [address] [place] [address] [place] [address] [address] [facility] [address] [facility] [place] [address] 05/24/2024 11:45 AM KNOTTER HAND Office Visit [facility] Oncology and Hematology - Paras [address] [place] [address] Nelson Cazares MD [address] [facility] [address] [place] [address] 06/07/2024 12:00 PM CDT Appointment [facility] [address] [place] [address] [place] [address] [place] [phone] 06/07/2024 1:05 PM CDT Office Visit [facility] Breast Surgery Jazmin Couch [address] [place] [address] [place] [address] [place] [address] 06/20/2024 8:30 AM CDT Office Visit [facility] Internal Medicine Phuong Denzel [address] [facility] [address] [place] [address] [place] [address] [place] [address] 06/20/2024 11:15 AM CDT Office Visit [facility] Endocrinology [address] [place] [address] Shanice Llamas MD [address] [facility] [address] [place] [address] 12/08/2024 11:00 AM CDT Office Visit [facility] Heart and Vascular - [facility] [address] [place] [address] Nam Coto MD [address] [facility] [address] [place] [address] documented as of this encounter Visit Diagnoses Diagnosis Essential hypertension, benign- Primary documented in this encounter Additional Health Concerns Infection Onset Date Last Indicated Resolved Time R/O COVID-19 12/28/2019 12/28/2019 12/30/2019 5:45 AM CDT COVID-19 12/28/2019 12/28/2019 01/27/2020 1:16 AM CDT documented as of this encounter Care Teams Freight Receiver Relationship Specialty [place] [address] [facility] [address] [place] [address] PCP - General Internal Medicine 02/18/21 documented as of this encounter
--- OUTSIDE RECORDS SUMMARY | 2024-05-18 09:13 | XMS_ITS | Encounter Summary ---
Author Organization [facility] Address [address] [place] [address] Care Team Providers Care Barrel Inspector Tight Name Role Phone Kerwin Quiroga MD Primary Care Provider +1- [phone] Encounter Details Date Type Department Care Team (Latest Contact Info) Description 01/11/2003 Outpatient Historical HIS [facility] Jeremías Torres MD NO ADDRESS ON FILE DIABETES UNCOMPL ADULT-TYPE II (CMS/HCC) (Primary Dx) Social History Tobacco Use Types Packs/Day Years Used Date Smoking Tobacco: Never Assessed Comments Unknown Sex and Gender Information Value Date Recorded Sex Assigned at Not on file Legal Sex Female 4:29 AM FOUNTAIN VENDING MECHANIC Gender Identity Not on file Sexual Orientation Not on file documented as of this encounter Plan of Treatment Upcoming Encounters Date Type Department Care Team (Late st Contact Info) Description 05/20/2024 9:30 AM FOUNTAIN VENDING MECHANIC Office Visit [facility] Internal Medicine Phuong Mahoney [address] [address] [facility] [address] [place] [address] [place] [address] [address] [facility] [address] [facility] [place] [address] 05/24/2024 11:45 AM FOUNTAIN VENDING MECHANIC Office Visit [facility] Oncology and Hematology - Paras [address] [place] [address] Nelson Cazares MD [address] [facility] [address] [place] [address] 06/07/2024 12:00 PM CDT Appointment [facility] [address] [place] [address] [place] [address] [place] [address] 06/07/2024 1:05 PM CDT Office Visit [facility] Breast Surgery Jazmin Couch [address] [place] [address] [place] [address] [place] [address] 06/20/2024 8:30 AM CDT Office Visit [facility] Internal Medicine Phuong Denzel [address] [facility] [address] [place] [address] [place] [address] [place] [address] 06/20/2024 11:15 AM CDT Office Visit [facility] Endocrinology [address] [facility] [address] [place] [address] Shanice Llamas MD [address] [facility] [address] [place] [address] 12/08/2024 11:00 AM CDT Office Visit [facility] Heart and Vascular - [facility] [address] [place] [address] Nam Coto MD [address] [facility] [address] [place] [address] documented as of this encounter Visit Diagnoses Diagnosis Type II or unspecified type diabetes mellitus without mention of complication, not stated as uncontrolled ([facility])- Primary Type II or unspecified type diabetes mellitus without mention of complication, not stated as uncontrolled documented in this encounter Additional Health Concerns Infection Onset Date Last Indicated Resolved Time R/O COVID-12/28/2019 12/28/2019 12/30/2019 5:45 AM CDT COVID-12/28/2019 12/28/2019 01/27/2020 1:16 AM CDT documented as of this encounter Care Teams Barrel Inspector Tight Relationship Specialty [place] [address] [facility] [address] [place] [phone] PCP - General Internal Medicine 02/18/21 documented as of this encounter
--- OUTSIDE RECORDS SUMMARY | 2024-05-18 09:13 | XMS_ITS | Encounter Summary ---
Author Organization [facility] Address [address] [facility] Attn: Epic Prelude ADT [place] [address] Care Team Providers Care Tier Lift Truck Operator Name Role Phone Kerwin Quiroga MD Primary Care Provider +1- [phone] Encounter Details Date Type Department Care Team (Late st Contact Info) Description 05/29/1995 Outpatient Historical Jeremías Farias MD NO ADDRESS ON FILE Social History Tobacco Use Types Packs/Day Years Used Date Smoking Tobacco: Never Assessed Comments Unknown Sex and Gender Information Value Date Recorded Sex Assigned at Not on file Legal Sex Female 4:29 AM LIP AND GATE BUILDER Gender Identity Not on file Sexual Orientation Not on file documented as of this encounter Plan of Treatment Upcoming Encounters Date Type Department Care Team (Late st Contact Info) Description 05/20/2024 9:30 AM LIP AND GATE BUILDER Office Visit [facility] Internal Medicine Phuong Mahoney [address] [place] [address] [place] [address] [place] [address] 05/24/2024 11:45 AM LIP AND GATE BUILDER Office Visit [facility] Oncology and Hematology - Paras [address] [place] [address] Nelson Cazares MD [address] [facility] [address] [place] [address] 06/07/2024 12:00 PM CDT Appointment [facility] [address] [place] [address] [place] [address] [place] [phone] 06/07/2024 1:05 PM CDT Office Visit [facility] Breast Surgery Jazmin Couch [address] [place] [address] [place] [address] [place] [address] 06/20/2024 8:30 AM CDT Office Visit [facility] Internal Medicine Phuogn Denzel [address] [place] [address] [place] [address] [place] [address] 06/20/2024 11:15 AM CDT Office Visit [facility] Endocrinology [address] [place] [address] Shanice Llamas MD [address] [facility] [place] [address] 12/08/2024 11:00 AM CDT Office Visit [facility] Heart and Vascular - [facility] [address] [facility] [address] [place] [address] Nam Coto MD [address] [address] [place] [address] documented as of this encounter Visit Diagnoses Not on filedocumented in this encounter Additional Health Concerns Infection Onset Date Last Indicated Resolved Time R/O COVID-19 12/28/2019 12/28/2019 12/30/2019 5:45 AM CDT COVID-19 12/28/2019 12/28/2019 01/27/2020 1:16 AM CDT documented as of this encounter Care Teams Tier Lift Truck Operator Relationship Specialty [place] [address] [facility] [address] [place] [address] PCP - General Internal Medicine 02/18/21 documented as of this encounter
--- OUTSIDE RECORDS SUMMARY | 2024-05-18 09:13 | XMS_ITS | Encounter Summary ---
Author Organization [facility] Address [address] [place] [address] Care Team Providers Care Slat Grader Name Role Phone Kerwin Quiroga MD Primary Care Provider +1- [phone] Encounter Details Date Type Department Care Team (Late st Contact Info) Description 07/18/1999 Outpatient Historical HIS [facility] INTERNISTS Jeremías Farias MD NO ADDRESS ON FILE Social History Tobacco Use Types Packs/Day Years Used Date Smoking Tobacco: Never Assessed Comments Unknown Sex and Gender Information Value Date Recorded Sex Assigned at Not on file Legal Sex Female 4:29 AM INDUSTRIAL AUTOMATION ENGINEER Gender Identity Not on file Sexual Orientation Not on file documented as of this encounter Plan of Treatment Upcoming Encounters Date Type Department Care Team (Late st Contact Info) Description 05/20/2024 9:30 AM INDUSTRIAL AUTOMATION ENGINEER [facility] Internal Medicine Phuong Denzel [address] [place] [address] [place] [address] [address] [facility] [place] [address] 05/24/2024 11:45 AM INDUSTRIAL AUTOMATION ENGINEER Office Visit [facility] Oncology and Hematology - Paras [address] [facility] [address] [place] [address] Nelson Cazares MD [address] [facility] [address] [place] [address] 06/07/2024 12:00 PM CDT Appointment [facility] [address] [place] [address] [place] [address] [place] [phone] 06/07/2024 1:05 PM CDT Office Visit [facility] Breast Surgery Jazmin Couch [address] [place] [address] [place] [address] [place] [address] 06/20/2024 8:30 AM CDT Office Visit [facility] Internal Medicine Phuong Denzel [address] [address] [facility] [address] [place] [address] [place] [address] [place] [address] 06/20/2024 11:15 AM CDT Office Visit [facility] Endocrinology [address] [facility] [address] [place] [address] Shanice Llamas MD [address] [facility] [address] [place] [address] 12/08/2024 11:00 AM CDT [facility] Visit [facility] Heart and Vascular - [facility] [address] [place] [address] Nam Coto MD [address] [facility] [address] [place] [address] documented as of this encounter Visit Diagnoses Not on filedocumented in this encounter Additional Health Concerns Infection Onset Date Last Indicated Resolved Time R/O COVID-19 12/28/2019 12/28/2019 12/30/2019 5:45 AM CDT COVID-19 12/28/2019 12/28/2019 01/27/2020 1:16 AM CDT documented as of this encounter Care Teams Slat Grader Relationship Specialty [place] [address] [facility] [address] [place] [address] PCP - General Internal Medicine 02/18/21 documented as of this encounter
--- OUTSIDE RECORDS SUMMARY | 2024-05-18 09:13 | XMS_ITS | Encounter Summary ---
Author Organization [facility] Address [address] [place] [address] Care Team Providers Care Keeper Helper Name Role Phone Kerwin Quiroga MD Primary Care Provider +1- [phone] Encounter Details Date Type Department Care Team (Late st Contact Info) Description 01/10/2002 Outpatient Historical HIS [facility] INTERN[facility] Jeremías Farias MD NO ADDRESS ON FILE Social History Tobacco Use Types Packs/Day Years Used Date Smoking Tobacco: Never Assessed Comments Unknown Sex and Gender Information Value Date Recorded Sex Assigned at Not on file Legal Sex Female 4:29 AM BUSINESS SERVICES MANAGER Gender Identity Not on file Sexual Orientation Not on file documented as of this encounter Plan of Treatment Upcoming Encounters Date Type Department Care Team (Late st Contact Info) Description 05/20/2024 9:30 AM BUSINESS SERVICES MANAGER Office Visit [facility] Internal Medicine Phuong Denzel [address] [place] [address] [place] [address] [address] [facility] [place] [address] 05/24/2024 11:45 AM BUSINESS SERVICES MANAGER Office Visit [facility] Oncology and Hematology - Paras [address] [facility] [address] [place] [address] Nelson Cazares MD [address] [facility] [address] [place] [address] 06/07/2024 12:00 PM CDT Appointment [facility] [address] [place] [address] [place] [address] [place] [phone] 06/07/2024 1:05 PM CDT Office Visit [facility] Breast Surgery Jazmin Couch [address] [place] [address] [place] [address] [place] [address] 06/20/2024 8:30 AM CDT Office Visit [facility] Internal Medicine Phuong Denzel [address] [address] [facility] [address] [place] [address] [place] [address] [place] [address] 06/20/2024 11:15 AM CDT Office Visit [facility] Endocrinology [address] [place] [address] Shanice Llamas MD [address] [place] [address] 12/08/2024 11:00 AM CDT Office Visit [facility] Heart and Vascular - [facility] [address] [place] [address] Nam Coto MD [address] [facility] [address] [place] [address] documented as of this encounter Visit Diagnoses Not on filedocumented in this encounter Additional Health Concerns Infection Onset Date Last Indicated Resolved Time R/O COVID-19 12/28/2019 12/28/2019 12/30/2019 5:45 AM CDT COVID-19 12/28/2019 12/28/2019 01/27/2020 1:16 AM CDT documented as of this encounter Care Teams Keeper Helper Relationship Specialty [place] [address] [facility] [address] [place] [address] PCP - General Internal Medicine 02/18/21 documented as of this encounter
--- OUTSIDE RECORDS SUMMARY | 2024-05-18 09:13 | XMS_ITS | Encounter Summary ---
Author Organization [facility] Address [address] [place] [address] Care Team Providers Care Budget Report Clerk Name Role Phone Kerwin Quiroga MD Primary Care Provider +1- [phone] Encounter Details Date Type Department Care Team (Late st Contact Info) Description 02/01/2002 Outpatient Historical [facility] DE[facility] Jeremías Farias MD NO ADDRESS ON FILE CHRONIC SINUSITIS NOS (Primary Dx) Social History Tobacco Use Types Packs/Day Years Used Date Smoking Tobacco: Never Assessed Comments Unknown Sex and Gender Information Value Date Recorded Sex Assigned at Not on file Legal Sex Female 4:29 AM APPRENTICE INSTRUMENT TECHNICIAN Gender Identity Not on file Sexual Orientation Not on file documented as of this encounter Plan of Treatment Upcoming Encounters Date Type Department Care Team (Late st Contact Info) Description 05/20/2024 9:30 AM APPRENTICE INSTRUMENT TECHNICIAN Office Visit [facility] Internal Medicine Phuong Mahoney [address] [facility] [address] [place] [address] [place] [address] [address] [facility] [address] [facility] [place] [address] 05/24/2024 11:45 AM APPRENTICE INSTRUMENT TECHNICIAN Office Visit [facility] Oncology and Hematology - Paras [address] [facility] [address] [place] [address] Nelson Cazares MD [address] [facility] [address] [place] [address] 06/07/2024 12:00 PM CDT Appointment [facility] Jazmin [address] [place] [address] [place] [address] [place] [phone] 06/07/2024 1:05 PM CDT Office Visit [facility] Breast Surgery Jazmin Couch [address] [place] [address] [place] [address] [place] [address] 06/20/2024 8:30 AM CDT Office Visit [facility] Internal Medicine Phuong Denzel [address] [place] [address] [place] [address] [place] [address] 06/20/2024 11:15 AM CDT Office Visit [facility] Endocrinology [address] [place] [address] Shanice Llamas MD [address] [place] [address] 12/08/2024 11:00 AM CDT Office Visit [facility] [address] [facility] [address] [place] [address] Nam Coto MD [address] [place] [address] documented as of this encounter Visit Diagnoses Diagnosis Unspecified sinusitis (chronic)- Primary documented in this encounter Additional Health Concerns Infection Onset Date Last Indicated Resolved Time R/O COVID-19 12/28/2019 12/28/2019 12/30/2019 5:45 AM CDT COVID-19 12/28/2019 12/28/2019 01/27/2020 1:16 AM CDT documented as of this encounter Care Teams Budget Report Clerk Relationship Specialty [place] [address] [facility] [address] [place] [address] PCP - General Internal Medicine 02/18/21 documented as of this encounter
--- OUTSIDE RECORDS SUMMARY | 2024-05-18 09:13 | XMS_ITS | Encounter Summary ---
Author Organization [facility] Address [address] [place] [address] Care Team Providers Care Beverage Specialist Name Role Phone Kerwin Quiroga MD Primary Care Provider +1- [phone] Encounter Details Date Type Department Care Team (Late st Contact Info) Description 10/15/2001 Outpatient Historical [facility] Jeremías Farias MD NO ADDRESS ON FILE Social History Tobacco Use Types Packs/Day Years Used Date Smoking Tobacco: Never Assessed Comments Unknown Sex and Gender Information Value Date Recorded Sex Assigned at Not on file Legal Sex Female 4:29 AM ACCOUNTS PAYABLE ASSISTANT Gender Identity Not on file Sexual Orientation Not on file documented as of this encounter Plan of Treatment Upcoming Encounters Date Type Department Care Team (Late st Contact Info) Description 05/20/2024 9:30 AM ACCOUNTS PAYABLE ASSISTANT Office Visit [facility] Internal Medicine Phuong Denzel [address] [place] [address] [place] [address] [facility] [place] [address] 05/24/2024 11:45 AM ACCOUNTS PAYABLE ASSISTANT Office Visit [facility] Oncology and Hematology - Paras [address] [facility] [address] [place] [address] Nelson Cazares MD [address] [facility] [address] [place] [address] 06/07/2024 12:00 PM CDT Appointment [facility] [address] [place] [address] [place] [address] [place] [phone] 06/07/2024 1:05 PM CDT Office Visit [facility] Breast Surgery Jazmin Couch [address] [place] [address] [place] [address] [place] [address] 06/20/2024 8:30 AM CDT Office Visit [facility] Internal Medicine Phuong Denzel [address] [facility] [address] [place] [address] [place] [address] [place] [address] 06/20/2024 11:15 AM CDT Office Visit [facility] Endocrinology [address] [place] [address] Shanice Llamas MD [address] [place] [address] 12/08/2024 11:00 AM CDT Office Visit [facility] Heart and Vascular - [facility] [address] [place] [address] Nam Coto MD [address] [facility] [address] [place] [address] documented as of this encounter Visit Diagnoses Not on filedocumented in this encounter Additional Health Concerns Infection Onset Date Last Indicated Resolved Time R/O COVID-19 12/28/2019 12/28/2019 12/30/2019 5:45 AM CDT COVID-19 12/28/2019 12/28/2019 01/27/2020 1:16 AM CDT documented as of this encounter Care Teams Beverage Specialist Relationship Specialty [place] [address] [facility] [address] [place] [address] PCP - General Internal Medicine 02/18/21 documented as of this encounter
--- OUTSIDE RECORDS SUMMARY | 2024-05-18 09:13 | XMS_ITS | Encounter Summary ---
Author Organization [facility] Address [address] [place] [address] Care Team Providers Care Supply Chain Assistant Name Role Phone Kerwin Quiroga MD Primary Care Provider +1- [phone] Encounter Details Date Type Department Care Team (Late st Contact Info) Description 05/11/2001 Outpatient Historical HIS G [facility] Jeremías Farias MD NO ADDRESS ON FILE Social History Tobacco Use Types Packs/Day Years Used Date Smoking Tobacco: Never Assessed Comments Unknown Sex and Gender Information Value Date Recorded Sex Assigned at Not on file Legal Sex Female 4:29 AM CREDIT INTERVIEWER Gender Identity Not on file Sexual Orientation Not on file documented as of this encounter Plan of Treatment Upcoming Encounters Date Type Department Care Team (Late st Contact Info) Description 05/20/2024 9:30 AM CREDIT INTERVIEWER Office Visit [facility] Internal Medicine Phuong Denzel [address] [place] [address] [place] [address] [address] [facility] [place] [address] 05/24/2024 11:45 AM CREDIT INTERVIEWER Office Visit [facility] Oncology and Hematology - Paras [address] [facility] [address] [place] [address] Nelson Cazares MD [address] [facility] [address] [place] [address] 06/07/2024 12:00 PM CDT Appointment [facility] Jazmin [address] [place] [address] [place] [address] [place] [phone] 06/07/2024 1:05 PM CDT Office Visit [facility] Breast Surgery Jazmin Couch [address] [place] [address] [place] [address] [place] [address] 06/20/2024 8:30 AM CDT Office Visit [facility] Internal Medicine Phuong Denzel [address] [address] [facility] [address] [place] [address] [place] [address] [place] [address] 06/20/2024 11:15 AM CDT Office Visit [facility] Endocrinology [address] [place] [address] Shanice Llamas MD [address] [place] [address] 12/08/2024 11:00 AM CDT Office Visit [facility] Heart and Vascular - [facility] [address] [place] [address] Nam Coto MD [address] [facility] [address] [place] [address] documented as of this encounter Visit Diagnoses Not on filedocumented in this encounter Additional Health Concerns Infection Onset Date Last Indicated Resolved Time R/O COVID-19 12/28/2019 12/28/2019 12/30/2019 5:45 AM CDT COVID-19 12/28/2019 12/28/2019 01/27/2020 1:16 AM CDT documented as of this encounter Care Teams Supply Chain Assistant Relationship Specialty [place] [address] [facility] [address] [place] [address] PCP - General Internal Medicine 02/18/21 documented as of this encounter
--- OUTSIDE RECORDS SUMMARY | 2024-05-18 09:13 | XMS_ITS | Encounter Summary ---
Author Organization [facility] Address [address] [place] [address] Care Team Providers Care Weight Control Engineer Name Role Phone Kerwin Quiroga MD Primary Care Provider +1- [phone] Encounter Details Date Type Department Care Team (Latest Contact Info) Description 07/18/1999 Outpatient Historical HIS [facility] Jeremías Torres MD NO ADDRESS ON FILE Type II or unspecified type diabetes mellitus without mention of complication, not stated as uncontrolled (CMS/HCC) (Primary Dx) Social History Tobacco Use Types Packs/Day Years Used Date Smoking Tobacco: Never Assessed Comments Unknown Sex and Gender Information Value Date Recorded Sex Assigned at Not on file Legal Sex Female 4:29 AM GROUNDS CARETAKER Gender Identity Not on file Sexual Orientation Not on file documented as of this encounter Plan of Treatment Upcoming Encounters Date Type Department Care Team (Late st Contact Info) Description 05/20/2024 9:30 AM GROUNDS CARETAKER Office Visit [facility] Internal Medicine Phuong Mahoney [address] [address] [facility] [address] [place] [address] [place] [address] [address] [facility] [address] [facility] [address] 05/24/2024 11:45 AM GROUNDS CARETAKER Office Visit [facility] Oncology and Hematology - Paras [address] [place] [address] Nelson Cazares MD [address] [facility] [address] [place] [address] 06/07/2024 12:00 PM CDT Appointment [facility] Breast [place] Jazmin C[address] [place] [address] [place] [address] [place] [phone] 06/07/2024 1:05 PM CDT Office Visit [facility] Breast Surgery Jazmin Couch [address] [place] [address] [place] [address] [place] [address] 06/20/2024 8:30 AM CDT Office Visit [facility] Internal Medicine Phuong Mahoney [address] [place] [address] [place] [address] [place] [address] 06/20/2024 11:15 AM CDT Office Visit [facility] Endocrinology [address] [place] [address] Shanice Llamas MD [address] [facility] [address] [place] [address] 12/08/2024 11:00 AM CDT Office Visit [facility] Heart and Vascular - [facility] [address] [place] [address] Nam Coto MD [address] [facility] [address] [place] [address] documented as of this encounter Visit Diagnoses Diagnosis Type II or unspecified type diabetes mellitus without mention of complication, not stated as uncontrolled ([facility])- Primary Type II or unspecified type diabetes mellitus without mention of complication, not stated as uncontrolled documented in this encounter Additional Health Concerns Infection Onset Date Last Indicated Resolved Time R/O COVID-12/28/2019 12/28/2019 12/30/2019 5:45 AM CDT COVID-12/28/2019 12/28/2019 01/27/2020 1:16 AM CDT documented as of this encounter Care Teams Weight Control Engineer Relationship Specialty [place] [address] [facility] [address] [place] [phone] PCP - General Internal Medicine 02/18/21 documented as of this encounter
--- OUTSIDE RECORDS SUMMARY | 2024-05-18 09:13 | XMS_ITS | Encounter Summary ---
Author Organization [facility] Address [address] Attn: Epic Prelude ADT [place] [address] Care Team Providers Care Executive Director Sheltered Workshop Name Role Phone Kerwin Quiroga MD Primary Care Provider +1- [phone] Encounter Details Date Type Department Care Team (Late Contact Info) Description 12/27/1990 Outpatient Historical Jeremías Farias MD NO ADDRESS ON FILE Social History Tobacco Use Types Packs/Day Years Used Date Smoking Tobacco: Never Assessed Comments Unknown Sex and Gender Information Value Date Recorded Sex Assigned at Not on file Legal Sex Female 4:29 AM PREPLEATER Gender Identity Not on file Sexual Orientation Not on file documented as of this encounter Plan of Treatment Upcoming Encounters Date Type Department Care Team (Late st Contact Info) Description 05/20/2024 9:30 AM PREPLEATER Office Visit [facility] Internal Medicine Phuong Mahoney [address] [place] [phone] [place] [address] [address] [place] [address] 05/24/2024 11:45 AM PREPLEATER Office Visit [facility] Oncology and Hematology - Par[address] [place] [address] Nelson Cazares MD [address] [facility] [address] [place] [address] 06/07/2024 12:00 PM CDT Appointment [facility] [address]az[address] [place] [address] [place] [address] [place] [phone] 06/07/2024 1:05 PM CDT Office Visit [facility] Breast Surgery Jazmin Couch [address] [place] [address] [place] [address] [place] [address] 06/20/2024 8:30 AM CDT Office Visit [facility] Internal Medicine Phuong Denzel [address] [place] [address] [place] [address] [place] [address] 06/20/2024 11:15 AM CDT Office Visit [facility] Endocrinology [address] [place] [address] Shanice Llamas MD [address] [place] [address] 12/08/2024 11:00 AM CDT Office Visit [facility] Heart and Vascular - [facility] [address] [place] [address] Nam Coto MD [address] [facility] [address] [place] [address] documented as of this encounter Visit Diagnoses Not on filedocumented in this encounter Additional Health Concerns Infection Onset Date Last Indicated Resolved Time R/O COVID-19 12/28/2019 12/28/2019 12/30/2019 5:45 AM CDT COVID-19 12/28/2019 12/28/2019 01/27/2020 1:16 AM CDT documented as of this encounter Care Teams Executive Director Sheltered Workshop Relationship Specialty Start [place] [address] [facility] [address] [place] [address] PCP - General Internal Medicine 02/18/21 documented as of this encounter
--- OUTSIDE RECORDS SUMMARY | 2024-05-18 09:13 | XMS_ITS | Encounter Summary ---
Author Organization [facility] Address [address] [place] [address] Care Team Providers Care Branch Lending Officer Name Role Phone Kerwin Quiroga MD Primary Care Provider +1- [phone] Encounter Details Date Type Department Care Team (Late st Contact Info) Description 07/27/2007 Outpatient Historical [facility] Jose Luis Malcolm MD [address] [facility] [address] [place] [address] Social History Tobacco Use Types Packs/Day Years Used Date Smoking Tobacco: Never Assessed Comments Unknown Sex and Gender Information Value Date Recorded Sex Assigned at Not on file Legal Sex Female 4:29 AM PUBLIC WORKS COMMISSIONER Gender Identity Not on file Sexual Orientation Not on file documented as of this encounter Plan of Treatment Upcoming Encounters Date Type Department Care Team (Late st Contact Info) Description 05/20/2024 9:30 AM PUBLIC WORKS COMMISSIONER Office Visit [facility] Internal Medicine Phuong Mahoney [address] [place] [address] [place] [address] [facility] [place] [address] 05/24/2024 11:45 AM PUBLIC WORKS COMMISSIONER Office Visit [facility] Oncology and Hematology - Paras [address] [facility] [address] [place] [address] Nelson Cazares MD [address] [facility] [address] [place] [address] 06/07/2024 12:00 PM CDT Appointment [facility] Jazmin C[address] [place] [address] [place] [address] [place] [address] 06/07/2024 1:05 PM CDT Office Visit [facility] Breast Surgery Jazmin Couch [address] [place] [address] [place] [address] [facility] [address] [place] [address] 06/20/2024 8:30 AM CDT Office Visit [facility] Internal Medicine Phuong Mahoney [address] [facility] [address] [place] [address] [place] [address] [place] [address] 06/20/2024 11:15 AM CDT Office Visit [facility] Endocrinology [address] [place] [address] Shanice Llamas MD [address] [facility] [address] [place] [address] 12/08/2024 11:00 AM CDT Office Visit [facility] Heart and Vascular - [facility] [address] [place] [address] Nam Coto MD [address] [facility] [address] [place] [address] documented as of this encounter Procedures Procedure Name Priority Date/Time Associated Diagnosis Comments POC GLUCOSE Routine 08/18/2007 7:13 AM CDT POC GLUCOSE Routine 08/17/2007 9:07 PM CDT POC GLUCOSE Routine 08/17/2007 4:52 PM CDT POC GLUCOSE Routine 08/17/2007 2:44 PM CDT POC GLUCOSE Routine 08/17/2007 1:48 PM CDT POC GLUCOSE Routine 08/17/2007 9:09 AM CDT HEMOGLOBIN AND HEMATOCRIT Routine 08/10/2007 9:05 AM CDT BASIC METABOLIC PANEL Routine 08/10/2007 9:05 AM CDT TYPE AND SCREEN Routine 08/10/2007 8:25 AM CDT documented in this encounter Results * (ABNORMAL) POC GLUCOSE (08/18/2007 7:13 AM CDT) COMMENT 3, GLU POC Pre Meal [facility] GLUCOSE POC 155(H) 65 - 99 mg/dL [facility] COMMENT, GLU POC Notified RN [facility] Venous blood specimen (specimen) 08/18/2007 7:13 AM CDT 08/18/2007 7:13 AM CDT Jose Luis Malcolm MD POINT OF CARE TESTING Final R esult [facility] CLIA# [id number] [address] [facility] [place] [address] * (ABNORMAL) POC GLUCOSE (08/17/2007 9:07 PM CDT) GLUCOSE POC 226(H) 65 - 99 mg/dL [facility] COMMENT, GLU POC Notified RN [facility] Venous blood specimen (specimen) 08/17/2007 9:07 PM CDT 08/17/2007 9:07 PM CDT Jose Luis Malcolm MD POINT OF CARE TESTING Final R prachi Performing Organization Address City/[facility]/ZIP Co de Phone Number [facility] CLIA# [id number] [address] [place] [address] * (ABNORMAL) POC GLUCOSE (08/17/2007 4:52 PM CDT) GLUCOSE POC 201(H) 65 - 99 mg/dL [facility] COMMENT, GLU POC Notified RN [facility] Venous blood specimen (specimen) 08/17/2007 4:52 PM CDT 08/17/2007 4:52 PM CDT Jose Luis Malcolm MD POINT OF CARE TESTING Final R jacquelinannette Performing Organization Address [facility]/ZIP Co de Phone Number [facility] CLIA# [id number] [address] [place] [address] * (ABNORMAL) POC GLUCOSE (08/17/2007 2:44 PM CDT) GLUCOSE POC 203(H) 65 - 99 mg/dL [facility] Venous blood specimen (specimen) 08/17/2007 2:44 PM CDT 08/17/2007 2:44 PM CDT Jose Luis Malcolm MD POINT OF CARE TESTING Final R rpachi Performing Organization Address City/[facility]/ZIP Co de Phone Number [facility] CLIA# [id number] [address] [place] [address] * (ABNORMAL) POC GLUCOSE (08/17/2007 1:48 PM CDT) GLUCOSE POC 200(H) 65 - 99 mg/dL [facility] Venous blood specimen (specimen) 08/17/2007 1:48 PM CDT 08/17/2007 1:48 PM CDT Jose Luis Malclom MD POINT OF CARE TESTING Final R esult Performing Organization Address City/[facility]/ZIP Co de Phone Number [facility] CLIA# [id number] [address] [place] [address] * (ABNORMAL) POC GLUCOSE (08/17/2007 9:09 AM CDT) GLUCOSE POC 186(H) 65 - 99 mg/dL [facility] Venous blood specimen (specimen) 08/17/2007 9:09 AM CDT 08/17/2007 9:09 AM CDT Jose Luis Malcolm MD POINT OF CARE TESTING Final R jacquelinult Performing Organization Address [facility] Co de Phone Number [facility] CLIA# [id number] [address] [place] [address] * (ABNORMAL) HEMOGLOBIN AND HEMATOCRIT (08/10/2007 9:05 AM CDT) HEMOGLOBIN 15.7(H) 11.8 - 14.8 g/dL [facility] HEMATOCRIT 48.3(H) 35.5 - 44.0 % [facility] Blood specimen (specimen) 08/10/2007 9:05 AM CDT 08/10/2007 10:05 AM CDT Jose Luis Malcolm MD HEMATOLOGY ORDERABLES Final R esult [facility] CLIA# [id number] [address] [place] [address] * (ABNORMAL) BASIC METABOLIC PANEL (08/10/2007 9:05 AM CDT) GLUCOSE 139(H) 65 - 99 mg/dL [facility] BUN 9 6 - 20 mg/dL [facility] CHLORIDE 99 96 - 108 mmol/L [facility] CREATININE 0.74 0.51 - 0.95 mg/dL [facility] SODIUM 136 135 - 145 mmol/L [facility] CALCIUM 9.3 8.4 - 10.2 mg/dL [facility] CO2 24 22 - 30 mmol/L [facility] POTASSIUM 4.4 3.5 - 4.9 mmol/L [facility] GFR, >60 >=60 mL/min/1. 7 sq meter [facility] GFR >60 >=60 mL/min/1. 7 sq meter [facility] Comment: Estimated GFR rate interpretative information for both Americans and non- Americans is available on the [facility] Intranet at: [email or web address] Select: Lab Policies and Procedures Select: Reference Ranges - GFR Blood specimen (specimen) 08/10/2007 9:05 AM CDT 08/10/2007 10:05 AM CDT Jose Luis Malcolm MD CHEMISTRY ORDERABLES Edited [facility] CLIA# [id number] [address] [place] [address] * TYPE AND SCREEN (08/10/2007 8:25 AM CDT) HISTORY CHECK No Historical ABO/Rh [facility] SPECIMEN LIFE 3 days from OR date [facility] ABO/RH TYPE A Positive [facility] ANTIBODY SCREEN Negative [facility] Blood specimen (specimen) 08/10/2007 8:25 AM CDT us Jose Luis Malcolm MD BLOOD BANK ORDERABLES Edited [facility] CLIA# [id number] [address] [place] [address] documented in this encounter Visit Diagnoses Not on filedocumented in this encounter Additional Health Concerns Infection Onset Date Last Indicated Resolved Time R/O COVID-19 12/28/2019 12/28/2019 12/30/2019 5:45 AM CDT COVID-19 12/28/2019 12/28/2019 01/27/2020 1:16 AM CDT documented as of this encounter Care Teams Branch Lending Officer Relationship Specialty [place] [address] [place] [phone] PCP - General Internal Medicine 02/18/21 documented as of this encounter
--- OUTSIDE RECORDS SUMMARY | 2024-05-18 09:13 | XMS_ITS | Encounter Summary ---
Author Organization [facility] Address [address] [place] [address] Care Team Providers Care Naturopathic Doctor Name Role Phone Kerwin Quiroga MD Primary Care Provider +1- [phone] Encounter Details Date Type Department Care Team (Late st Contact Info) Description 07/27/2003 Outpatient Historical [facility] INTERNISTS Jeremías Farias MD NO ADDRESS ON FILE Social History Tobacco Use Types Packs/Day Years Used Date Smoking Tobacco: Never Assessed Comments Unknown Sex and Gender Information Value Date Recorded Sex Assigned at Not on file Legal Sex Female 4:29 AM GOSPEL WORKER Gender Identity Not on file Sexual Orientation Not on file documented as of this encounter Plan of Treatment Upcoming Encounters Date Type Department Care Team (Late st Contact Info) Description 05/20/2024 9:30 AM GOSPEL WORKER Office Visit [facility] Internal Medicine Phuong Denzel [address] [place] [address] [place] [address] [facility] [place] [address] 05/24/2024 11:45 AM GOSPEL WORKER Office Visit [facility] Oncology and Hematology - Paras [address] [facility] [address] [place] [address] Nelson Cazares MD [address] [facility] [address] [place] [address] 06/07/2024 12:00 PM CDT Appointment [facility] Jazmin [address] [place] [address] [place] [address] [place] [address] 06/07/2024 1:05 PM CDT Office Visit [facility] Breast Surgery Jazmin Couch [address] [place] [address] [place] [address] [place] [address] 06/20/2024 8:30 AM CDT Office Visit [facility] Internal Medicine Phuong Denzel [address] [facility] [address] [place] [address] [place] [address] [place] [address] 06/20/2024 11:15 AM CDT Office Visit [facility] Endocrinology [address] [facility] [address] [place] [address] Shanice Llamas MD [address] [facility] [address] [place] [address] 12/08/2024 11:00 AM CDT Office Visit [facility] Heart and Vascular - [address] [place] [address] Nam Coto MD [address] [facility] [address] [place] [address] documented as of this encounter Visit Diagnoses Not on filedocumented in this encounter Additional Health Concerns Infection Onset Date Last Indicated Resolved Time R/O COVID-19 12/28/2019 12/28/2019 12/30/2019 5:45 AM CDT COVID-19 12/28/2019 12/28/2019 01/27/2020 1:16 AM CDT documented as of this encounter Care Teams Naturopathic Doctor Relationship Specialty [place] [address] [facility] [address] [place] [address] PCP - General Internal Medicine 02/18/21 documented as of this encounter
--- OUTSIDE RECORDS SUMMARY | 2024-05-18 09:13 | XMS_ITS | Encounter Summary ---
Author Organization [facility] Address [address] [place] [address] Care Team Providers Care Forklift Technician Name Role Phone Kerwin Quiroga MD Primary Care Provider +1- [phone] Encounter Details Date Type Department Care Team (Late st Contact Info) Description 04/06/2008 Outpatient Historical [facility] Brittany Gonzalez MD NO ADDRESS ON FILE Abdominal Pain, Right Upper Quadrant Social History Tobacco Use Types Packs/Day Years Used Date Smoking Tobacco: Never Alcohol Use Standard Drinks/Week Comments Yes 0 (1 standard drink = 0.6 oz pur e alcohol) rare Comments No Sex and Gender Information Value Date Recorded Sex Assigned at Not on file Legal Sex Female 4:29 AM SALES ASSOCIATE FISHING Gender Identity Not on file Sexual Orientation Not on file documented as of this encounter Plan of Treatment Upcoming Encounters Date Type Department Care Team (Late st Contact Info) Description 05/20/2024 9:30 AM SALES ASSOCIATE FISHING Office Visit [facility] Internal Medicine Phuong Mahoney [address] [place] [address] [place] [address] [place] [address] 05/24/2024 11:45 AM SALES ASSOCIATE FISHING Office Visit [facility] Oncology and Hematology - Paras [address] [place] [address] Nelson Cazares MD [address] [facility] [address] [place] [address] 06/07/2024 12:00 PM CDT Appointment [facility] Jazmin [address] [place] [address] [place] [address] [place] [address] 06/07/2024 1:05 PM CDT Office Visit [facility] Breast Surgery Jazmin Couch [address] [place] [address] [place] [address] [place] [address] 06/20/2024 8:30 AM CDT Office Visit [facility] Internal Medicine Phuong Mahoney [address] [place] [address] [place] [address] [place] [address] 06/20/2024 11:15 AM CDT Office Visit [facility] Endocrinology [address] [address] [place] [address] Shanice Llamas MD [address] [facility] [address] [facility] [address] [address] [place] [address] 12/08/2024 11:00 AM CDT Office Visit [facility] Heart and Vascular - [facility] [address] [place] [address] Nam Coto MD [address] [facility] [address] [place] [address] documented as of this encounter Procedures Procedure Name Priority Date/Time Associated Diagnosis Comments US ABDOMEN LIMITED Timed Study 04/06/2008 7: 23 AM SALES ASSOCIATE FISHING documented in this encounter Results * US ABDOMEN LIMITED (04/06/2008 7:23 AM SALES ASSOCIATE FISHING) Anatomical Region Laterality Modality Abdomen Other 04/06/2008 7:23 AM SALES ASSOCIATE FISHING Narrative 04/06/2008 9:07 AM SALES ASSOCIATE FISHING [facility] [address] [place], [place] [address] Admit Date: 04/06/2008 WILLIAM IZAGUIRRE Sex: F Admit Prov: BRITTANY GONZALEZ Date: 1955 Primary Care Prov: CARLOS BRITTANY Richards; CMRN: [id number] ERICK MAYER SSN: [id number] Room: [facility] Ordering Prov: N/A Accession Number: [id number] Interpretation ULTRASOUND OF THE ABDOMEN, LIMITED, 04/06/2008 Clinical History: Right upper quadrant abdominal pain. Findings: Sagittal and transverse real-time examination reveals surgical absence of the gallbladder. The liver is normal in echotexture and free from focal defects. Included images of the right kidney were normal. There is normal color-flow and duplex Doppler signal in the portal vein. The common bile duct is 4.4 mm in diameter and is not dilated. The visualized portions of the pancreas appear normal. There is normal color-flow signal in the hepatic veins. Conclusion: Surgical absence of the gallbladder, but otherwise negative examination. . Dictated by: ОЛЬГА BRANDT 04/06/2008 07:47 Electronically signed by: ОЛЬГА BRANDT 04/06/2008 09:06 Transcribed: 04/06/2008 09:00 DKT Procedure Note Provider, Historical - 04/06/2008 [facility] [address] [place], [place] [address] Admit Date: 04/06/2008 WILLIAM IZAGUIRRE Sex: F Admit Prov: BRITTANY GONZALEZ Date: 1955 Primary Care Prov: CARLOS BRITTANY Richards; CMRN: [id number] ERICK MAYER SSN: [id number] Room: [facility] Ordering Prov: N/A Interpretation ULTRASOUND OF THE ABDOMEN, LIMITED, 04/06/2008 Clinical History: Right upper quadrant abdominal pain. Findings: Sagittal and transverse real-time examination reveals surgicalabsence of the gallbladder. The liver is normal in echotexture and free fromfocal defects. Included images of the right kidney were normal. There isnormal color-flow and duplex Doppler signal in the portal vein. The commonbile duct is 4.4 mm in diameter and is not dilated. The visualizedportions of the pancreas appear normal. There is normal color-flow signal inthe hepatic veins. Conclusion: Surgical absence of the gallbladder, but otherwise negativeexamination. . Dictated by: ОЛЬГА BRANDT 04/06/2008 07:47 Electronically signed by: ОЛЬГА BRANDT 04/06/2008 09:06 Transcribed: 04/06/2008 09:00 DKT Brittany Gonzalez MD ORDERABLES Final Res ult documented in this encounter Visit Diagnoses Diagnosis Abdominal pain, right upper quadrant documented in this encounter Additional Health Concerns Infection Onset Date Last Indicated Resolved Time R/O COVID-19 12/28/2019 12/28/2019 12/30/2019 5:45 AM CDT COVID-19 12/28/2019 12/28/2019 01/27/2020 1:16 AM CDT documented as of this encounter Care Teams Forklift Technician Relationship Specialty [place] [address] [facility] [address] [place] [phone] PCP - General Internal Medicine 02/18/21 documented as of this encounter
--- OUTSIDE RECORDS SUMMARY | 2024-05-18 09:13 | XMS_ITS | Encounter Summary ---
Author Organization [facility] Address [address] [facility] Attn: Epic Prelude ADT [place] [address] Care Team Providers Care Printing Plate Setter Name Role Phone Kerwin Quiroga MD Primary Care Provider +1- [phone] Encounter Details Date Type Department Care Team (Late st Contact Info) Description 01/07/1993 Outpatient Historical Yariel Echavarria MD NO ADDRESS ON FILE Social History Tobacco Use Types Packs/Day Years Used Date Smoking Tobacco: Never Assessed Comments Unknown Sex and Gender Information Value Date Recorded Sex Assigned at Not on file Legal Sex Female 4:29 AM ZIPPER CUTTER Gender Identity Not on file Sexual Orientation Not on file documented as of this encounter Plan of Treatment Upcoming Encounters Date Type Department Care Team (Late st Contact Info) Description 05/20/2024 9:30 AM ZIPPER CUTTER Office Visit [facility] Internal Medicine Phuong Mahoney [address] [place] [phone] [place] [address] [place] [address] 05/24/2024 11:45 AM ZIPPER CUTTER Office Visit [facility] Oncology and Hematology - Paras [address] [place] [address] Nelson Cazares MD [address] [facility] [address] [place] [address] 06/07/2024 12:00 PM CDT Appointment [facility] [address]azmin [address] [place] [address] [place] [address] [place] [address] 06/07/2024 1:05 PM CDT Office Visit [facility] Breast Surgery Jazmin Couch [address] [place] [address] [place] [address] [place] [address] 06/20/2024 8:30 AM CDT Office Visit [facility] Internal Medicine Phuong Denzel [address] [facility] [address] [place] [address] [place] [address] [place] [address] 06/20/2024 11:15 AM CDT Office Visit [facility] Endocrinology [address] [place] [address] Shanice Llamas MD [address] [place] [address] 12/08/2024 11:00 AM CDT Office Visit [facility] Heart and Vascular - [facility] [address] [place] [address] Nam Coto MD [address] [facility] [address] [place] [address] documented as of this encounter Visit Diagnoses Not on filedocumented in this encounter Additional Health Concerns Infection Onset Date Last Indicated Resolved Time R/O COVID-19 12/28/2019 12/28/2019 12/30/2019 5:45 AM CDT COVID-19 12/28/2019 12/28/2019 01/27/2020 1:16 AM CDT documented as of this encounter Care Teams Printing Plate Setter Relationship Specialty Start [place] [address] [facility] [address] [place] [address] PCP - General Internal Medicine 02/18/21 documented as of this encounter
--- OUTSIDE RECORDS SUMMARY | 2024-05-18 09:13 | XMS_ITS | Encounter Summary ---
Author Organization [facility] Address [address] [place] [address] Care Team Providers Care Regional Guide Name Role Phone Kerwin Quiroga MD Primary Care Provider +1- [phone] Encounter Details Date Type Department Care Team (Late st Contact Info) Description 09/19/1998 Outpatient Historical HIS MRI DEPT Jeremías Farias MD NO ADDRESS ON FILE Abdominal pain, unspecified site (Primary Dx) Social History Tobacco Use Types Packs/Day Years Used Date Smoking Tobacco: Never Assessed Comments Unknown Sex and Gender Information Value Date Recorded Sex Assigned at Not on file Legal Sex Female 4:29 AM RISK AND INSURANCE MANAGER Gender Identity Not on file Sexual Orientation Not on file documented as of this encounter Plan of Treatment Upcoming Encounters Date Type Department Care Team (Late st Contact Info) Description 05/20/2024 9:30 AM RISK AND INSURANCE MANAGER Office Visit [facility] Internal Medicine Phuong Mahoney [address] [facility] [address] [place] [address] [place] [address] [facility] [address] [facility] [place] [address] 05/24/2024 11:45 AM RISK AND INSURANCE MANAGER Office Visit [facility] Oncology and Hematology - Par[address] [place] [address] Nelson Cazares MD [address] [facility] [address] [place] [address] 06/07/2024 12:00 PM CDT Appointment [facility] Jazmin [address]ouch [address] [place] [address] [place] [address] [place] [id number] 06/07/2024 1:05 PM CDT Office Visit [facility] Breast Surgery Jazmin Couch [address] [place] [address] [place] [address] [place] [address] 06/20/2024 8:30 AM CDT Office Visit [facility] Internal Medicine Phuong Denzel [address] [place] [address] [place] [address] [place] [address] 06/20/2024 11:15 AM CDT Office Visit [facility] Endocrinology [address] [place] [address] Shanice Llamas MD [address] [place] [address] 12/08/2024 11:00 AM CDT Office Visit [facility] Heart and Vascular - [facility] [address] [place] [address] Nam Coto MD [address] [place] [address] documented as of this encounter Visit Diagnoses Diagnosis Abdominal pain, unspecified site- Primary documented in this encounter Additional Health Concerns Infection Onset Date Last Indicated Resolved Time R/O COVID-19 12/28/2019 12/28/2019 12/30/2019 5:45 AM CDT COVID-19 12/28/2019 12/28/2019 01/27/2020 1:16 AM CDT documented as of this encounter Care Teams Regional Guide Relationship Specialty [place] [address] [facility] [address] [place] [address] PCP - General Internal Medicine 02/18/21 documented as of this encounter
--- OUTSIDE RECORDS SUMMARY | 2024-05-18 09:13 | XMS_ITS | Encounter Summary ---
Author Organization [facility] Address [address] [place] [address] Care Team Providers Care Head Esthetician Name Role Phone Kerwin Quiroga MD Primary Care Provider +1- [phone] Encounter Details Date Type Department Care Team (Late st Contact Info) Description 03/08/2002 Outpatient Historical HIS [facility] Jeremías Farias MD NO ADDRESS ON FILE Social History Tobacco Use Types Packs/Day Years Used Date Smoking Tobacco: Never Assessed Comments Unknown Sex and Gender Information Value Date Recorded Sex Assigned at Not on file Legal Sex Female 4:29 AM BOTTOM CEMENTER Gender Identity Not on file Sexual Orientation Not on file documented as of this encounter Plan of Treatment Upcoming Encounters Date Type Department Care Team (Late st Contact Info) Description 05/20/2024 9:30 AM BOTTOM CEMENTER Office Visit [facility] Internal Medicine Phuong Denzel [address] [place] [address] [place] [address] [facility] [place] [address] 05/24/2024 11:45 AM BOTTOM CEMENTER Office Visit [facility] Oncology and Hematology - Paras [address] [facility] [address] [place] [address] Nelson Cazares MD [address] [facility] [address] [place] [address] 06/07/2024 12:00 PM CDT Appointment [facility] [address] [place] [address] [place] [address] [place] [phone] 06/07/2024 1:05 PM CDT Office Visit [facility] Breast Surgery Jazmin Couch [address] [place] [address] [place] [address] [place] [address] 06/20/2024 8:30 AM CDT Office Visit [facility] Internal Medicine Phuong Denzel [address] [facility] [address] [place] [address] [place] [address] [place] [address] 06/20/2024 11:15 AM CDT Office Visit [facility] Endocrinology [address] [place] [address] Shanice Llamas MD [address] [place] [address] 12/08/2024 11:00 AM CDT Office Visit [facility] Heart and Vascular - [facility] [address] [place] [address] Nam Coto MD [address] [facility] [address] [place] [address] documented as of this encounter Visit Diagnoses Not on filedocumented in this encounter Additional Health Concerns Infection Onset Date Last Indicated Resolved Time R/O COVID-19 12/28/2019 12/28/2019 12/30/2019 5:45 AM CDT COVID-19 12/28/2019 12/28/2019 01/27/2020 1:16 AM CDT documented as of this encounter Care Teams Head Esthetician Relationship Specialty [place] [address] [facility] [address] [place] [address] PCP - General Internal Medicine 02/18/21 documented as of this encounter
--- OUTSIDE RECORDS SUMMARY | 2024-05-18 09:13 | XMS_ITS | Encounter Summary ---
Author Organization [facility] Address [address] [place] [address] Care Team Providers Care Service Center Supervisor Name Role Phone Kerwin Quiroga MD Primary Care Provider +1- [phone] Encounter Details Date Type Department Care Team (Latest Contact Info) Description 09/03/2000 Outpatient Historical HIS [facility] Jeremías Torres MD NO ADDRESS ON FILE Essential hypertension, benign (Primary Dx) Social History Tobacco Use Types Packs/Day Years Used Date Smoking Tobacco: Never Assessed Comments Unknown Sex and Gender Information Value Date Recorded Sex Assigned at Not on file Legal Sex Female 4:29 AM HUNTER GUIDE Gender Identity Not on file Sexual Orientation Not on file documented as of this encounter Plan of Treatment Upcoming Encounters Date Type Department Care Team (Late st Contact Info) Description 05/20/2024 9:30 AM HUNTER GUIDE Office Visit [facility] Internal Medicine Phuong Mahoney [address] [address] [facility] [address] [place] [address] [place] [address] [address] [facility] [address] [place] [address] 05/24/2024 11:45 AM HUNTER GUIDE Office Visit [facility] Oncology and Hematology - Par[address] [place] [address] Nelson Cazares MD [address] [facility] [address] [place] [address] 06/07/2024 12:00 PM CDT Appointment [facility] [address] [place] [address] [place] [address] [place] [phone] 06/07/2024 1:05 PM CDT Office Visit [facility] Breast Surgery Jazmin Couch [address] [place] [address] [place] [address] [place] [address] 06/20/2024 8:30 AM CDT Office Visit [facility] Internal Medicine Phuong Denzel [address] [place] [address] [place] [address] [place] [address] 06/20/2024 11:15 AM CDT Office Visit [facility] Endocrinology [address] [place] [address] Shanice Llamas MD [address] [place] [address] 12/08/2024 11:00 AM CDT Office Visit [facility] Heart and Vascular - [facility] [address] [place] [address] Nam Coto MD [address] [place] [address] documented as of this encounter Visit Diagnoses Diagnosis Essential hypertension, benign- Primary documented in this encounter Additional Health Concerns Infection Onset Date Last Indicated Resolved Time R/O COVID-19 12/28/2019 12/28/2019 12/30/2019 5:45 AM CDT COVID-19 12/28/2019 12/28/2019 01/27/2020 1:16 AM CDT documented as of this encounter Care Teams Service Center Supervisor Relationship Specialty [place] [address] [facility] [address] [place] [phone] PCP - General Internal Medicine 02/18/21 documented as of this encounter
--- OUTSIDE RECORDS SUMMARY | 2024-05-18 09:13 | XMS_ITS | Encounter Summary ---
Author Organization [facility] Address [address] [place] [address] Care Team Providers Care Network Relay Tester Name Role Phone Kerwin Quiroga MD Primary Care Provider +1- [phone] Encounter Details Date Type Department Care Team (Latest Contact Info) Description 03/08/2002 Outpatient Historical HIS [facility] Jeremías Torres MD NO ADDRESS ON FILE ACUTE URI NOS (Primary Dx) Social History Tobacco Use Types Packs/Day Years Used Date Smoking Tobacco: Never Assessed Comments Unknown Sex and Gender Information Value Date Recorded Sex Assigned at Not on file Legal Sex Female 4:29 AM DIRECTOR LEARNING AND DEVELOPMENT Gender Identity Not on file Sexual Orientation Not on file documented as of this encounter Plan of Treatment Upcoming Encounters Date Type Department Care Team (Late st Contact Info) Description 05/20/2024 9:30 AM DIRECTOR LEARNING AND DEVELOPMENT Office Visit [facility] Internal Medicine Phuong Mahoney [address] [facility] [address] [place] [address] [place] [address] [address] [facility] [address] [place] [address] 05/24/2024 11:45 AM DIRECTOR LEARNING AND DEVELOPMENT Office Visit [facility] Oncology and Hematology - Paras [address] [place] [address] Nelson Cazares MD [address] [facility] [address] [place] [address] 06/07/2024 12:00 PM CDT Appointment [facility] [address] [place] [address] [place] [address] [place] [id number] 06/07/2024 1:05 PM CDT Office Visit [facility] Breast Surgery Jazmin Couch [address] [place] [address] [place] [address] [place] [address] 06/20/2024 8:30 AM CDT Office Visit [facility] Internal Medicine Phuong Denzel [address] [place] [address] [place] [address] [place] [address] 06/20/2024 11:15 AM CDT Office Visit [facility] Endocrinology [address] [place] [address] Shanice Llamas MD [address] [place] [address] 12/08/2024 11:00 AM CDT Office Visit [facility] Heart and Vascular - [facility] [address] [place] [address] Nam Coto MD [address] [place] [address] documented as of this encounter Visit Diagnoses Diagnosis Acute upper respiratory infections of unspecified site- Primary documented in this encounter Additional Health Concerns Infection Onset Date Last Indicated Resolved Time R/O COVID-19 12/28/2019 12/28/2019 12/30/2019 5:45 AM CDT COVID-19 12/28/2019 12/28/2019 01/27/2020 1:16 AM CDT documented as of this encounter Care Teams Network Relay Tester Relationship Specialty [place] [address] [facility] [address] [place] [address] PCP - General Internal Medicine 02/18/21 documented as of this encounter
--- OUTSIDE RECORDS SUMMARY | 2024-05-18 09:13 | XMS_ITS | Encounter Summary ---
Author Organization [facility] Address [address] [place] [address] Care Team Providers Care Oenologist Name Role Phone Kerwin Quiroga MD Primary Care Provider +1- [phone] Encounter Details Date Type Department Care Team (Late st Contact Info) Description 06/07/2002 Outpatient Historical HIS [facility] Jeremías Farias MD NO ADDRESS ON FILE Social History Tobacco Use Types Packs/Day Years Used Date Smoking Tobacco: Never Assessed Comments Unknown Sex and Gender Information Value Date Recorded Sex Assigned at Not on file Legal Sex Female 4:29 AM STUDY ABROAD ADVISOR Gender Identity Not on file Sexual Orientation Not on file documented as of this encounter Plan of Treatment Upcoming Encounters Date Type Department Care Team (Late st Contact Info) Description 05/20/2024 9:30 AM STUDY ABROAD ADVISOR Office Visit [facility] Internal Medicine Phuong Denzel [address] [place] [address] [place] [address] [facility] [place] [address] 05/24/2024 11:45 AM STUDY ABROAD ADVISOR Office Visit [facility] Oncology and Hematology - Paras [address] [facility] [address] [place] [address] Nelson Cazares MD [address] [facility] [address] [place] [address] 06/07/2024 12:00 PM CDT Appointment [facility] [address] [place] [address] [place] [address] [place] [phone] 06/07/2024 1:05 PM CDT Office Visit [facility] Breast Surgery Jazmin Couch [address] [place] [address] [place] [address] [place] [address] 06/20/2024 8:30 AM CDT Office Visit [facility] Internal Medicine Phuong Denzel [address] [facility] [address] [place] [address] [place] [address] [place] [address] 06/20/2024 11:15 AM CDT Office Visit [facility] Endocrinology [address] [place] [address] Shanice Llamas MD [address] [place] [address] 12/08/2024 11:00 AM CDT Office Visit [facility] Heart and Vascular - [facility] [address] [place] [address] Nam Coto MD [address] [facility] [address] [place] [address] documented as of this encounter Visit Diagnoses Not on filedocumented in this encounter Additional Health Concerns Infection Onset Date Last Indicated Resolved Time R/O COVID-19 12/28/2019 12/28/2019 12/30/2019 5:45 AM CDT COVID-19 12/28/2019 12/28/2019 01/27/2020 1:16 AM CDT documented as of this encounter Care Teams Oenologist Relationship Specialty [place] [address] [facility] [address] [place] [address] PCP - General Internal Medicine 02/18/21 documented as of this encounter
--- OUTSIDE RECORDS SUMMARY | 2024-05-18 09:13 | XMS_ITS | Encounter Summary ---
Author Organization [facility] Address [address] [place] [address] Care Team Providers Care Magnetizer Name Role Phone Kerwin Quiroga MD Primary Care Provider +1- [phone] Encounter Details Date Type Department Care Team (Latest Contact Info) Description 12/27/2002 Outpatient Historical HIS [facility] Fabio Panchal MD NO ADDRESS ON FILE URIN TRACT INFECTION NOS (Primary Dx) Social History Tobacco Use Types Packs/Day Years Used Date Smoking Tobacco: Never Assessed Comments Unknown Sex and Gender Information Value Date Recorded Sex Assigned at Not on file Legal Sex Female 4:29 AM COAL TRIMMER Gender Identity Not on file Sexual Orientation Not on file documented as of this encounter Plan of Treatment Upcoming Encounters Date Type Department Care Team (Late st Contact Info) Description 05/20/2024 9:30 AM COAL TRIMMER Office Visit [facility] Internal Medicine Phuong Mahoney [address] [facility] [address] [place] [address] [place] [address] [facility] [address] [place] [address] 05/24/2024 11:45 AM COAL TRIMMER Office Visit [facility] Oncology and Hematology - Paras [address] [place] [address] Nelson Cazares MD [address] [facility] [address] [place] [address] 06/07/2024 12:00 PM CDT Appointment [facility] [address] [place] [address] [place] [address] [place] [phone] 06/07/2024 1:05 PM CDT Office Visit [facility] Breast Surgery Jazmin Couch [address] [place] [address] [place] [address] [place] [address] 06/20/2024 8:30 AM CDT Office Visit [facility] Internal Medicine Phuong Denzel [address] [place] [address] [place] [address] [place] [address] 06/20/2024 11:15 AM CDT Office Visit [facility] Endocrinology [address] [place] [address] Shanice Llamas MD [address] [place] [address] 12/08/2024 11:00 AM CDT Office Visit [facility] Heart and Vascular - [facility] [address] [place] [address] Nam Coto MD [address] [place] [address] documented as of this encounter Visit Diagnoses Diagnosis Urinary tract infection, site not specified- Primary documented in this encounter Additional Health Concerns Infection Onset Date Last Indicated Resolved Time R/O COVID-19 12/28/2019 12/28/2019 12/30/2019 5:45 AM CDT COVID-19 12/28/2019 12/28/2019 01/27/2020 1:16 AM CDT documented as of this encounter Care Teams Magnetizer Relationship Specialty [place] [address] [facility] [address] [place] [address] PCP - General Internal Medicine 02/18/21 documented as of this encounter
--- OUTSIDE RECORDS SUMMARY | 2024-05-18 09:13 | XMS_ITS | Encounter Summary ---
Author Organization [facility] Address [address] [place] [address] Care Team Providers Care Assembler Ping Pong Table Name Role Phone Kerwin Quiroga MD Primary Care Provider +1- [phone] Encounter Details Date Type Department Care Team (Latest Contact Info) Description 05/29/1999 Outpatient Historical HIS [facility] Jeremías Torres MD NO ADDRESS ON FILE Other abnormal blood chemistry (Primary Dx) Social History Tobacco Use Types Packs/Day Years Used Date Smoking Tobacco: Never Assessed Comments Unknown Sex and Gender Information Value Date Recorded Sex Assigned at Not on file Legal Sex Female 4:29 AM RELOCATION SERVICES SPECIALIST Gender Identity Not on file Sexual Orientation Not on file documented as of this encounter Plan of Treatment Upcoming Encounters Date Type Department Care Team (Late st Contact Info) Description 05/20/2024 9:30 AM RELOCATION SERVICES SPECIALIST Office Visit [facility] Internal Medicine Phuong Mahoney [address] [facility] [address] [place] [address] [place] [address] [address] [facility] [address] [facility] [place] [address] 05/24/2024 11:45 AM RELOCATION SERVICES SPECIALIST Office Visit [facility] Oncology and Hematology - Paras [address] [place] [address] Nelson Cazares MD [address] [address] [place] [address] 06/07/2024 12:00 PM CDT Appointment [facility] [address] [place] [address] [place] [address] [place] [phone] 06/07/2024 1:05 PM CDT Office Visit [facility] Breast Surgery Jazmin Couch [address] [place] [address] [place] [address] [place] [address] 06/20/2024 8:30 AM CDT Office Visit [facility] Internal Medicine Phuong Denzel [address] [place] [address] [place] [address] [place] [address] 06/20/2024 11:15 AM CDT Office Visit [facility] Endocrinology [address] [place] [address] Shanice Llamas MD [address] [place] [address] 12/08/2024 11:00 AM CDT Office Visit [facility] Heart and Vascular - [facility] [address] [place] [address] Nam Coto MD [address] [place] [address] documented as of this encounter Visit Diagnoses Diagnosis Other abnormal blood chemistry- Primary documented in this encounter Additional Health Concerns Infection Onset Date Last Indicated Resolved Time R/O COVID-19 12/28/2019 12/28/2019 12/30/2019 5:45 AM CDT COVID-19 12/28/2019 12/28/2019 01/27/2020 1:16 AM CDT documented as of this encounter Care Teams Assembler Ping Pong Table Relationship Specialty [place] [address] [facility] [address] [place] [phone] PCP - General Internal Medicine 02/18/21 documented as of this encounter
--- OUTSIDE RECORDS SUMMARY | 2024-05-18 09:13 | XMS_ITS | Encounter Summary ---
Author Organization [facility] Address [address] [facility] Attn: Epic Prelude ADT [place] [address] Care Team Providers Care Clinical Trial Leader Name Role Phone Kerwin Quiroga MD Primary Care Provider +1- [phone] Encounter Details Date Type Department Care Team (Late Contact Info) Description 08/09/1993 Outpatient Historical Jeremías Farias MD NO ADDRESS ON FILE Social History Tobacco Use Types Packs/Day Years Used Date Smoking Tobacco: Never Assessed Comments Unknown Sex and Gender Information Value Date Recorded Sex Assigned at Not on file Legal Sex Female 4:29 AM COMMODITY BUYER Gender Identity Not on file Sexual Orientation Not on file documented as of this encounter Plan of Treatment Upcoming Encounters Date Type Department Care Team (Late st Contact Info) Description 05/20/2024 9:30 AM COMMODITY BUYER Office Visit [facility] Internal Medicine Phuong Mahoney [address] [place] [phone] [place] [address] [place] [phone] 05/24/2024 11:45 AM COMMODITY BUYER Office Visit [facility] Oncology and Hematology - Par[address] [place] [address] Nelson Cazares MD [address] [facility] [address] [place] [address] 06/07/2024 12:00 PM CDT Appointment [facility] [address] [place] [address] [place] [address] [place] [phone] 06/07/2024 1:05 PM CDT Office Visit [facility] Breast Surgery Jazmin Couch [address] [place] [address] [place] [address] [place] [address] 06/20/2024 8:30 AM CDT Office Visit [facility] Internal Medicine Phuong Denzel [address] [place] [address] [place] [address] [place] [address] 06/20/2024 11:15 AM CDT Office Visit [facility] Endocrinology [address] [place] [address] Shanice Llamas MD [address] [facility] [address] [place] [address] 12/08/2024 11:00 AM CDT Office Visit [facility] Heart and Vascular - [facility] [address] [place] [address] Nam Coto MD [address] [facility] [address] [place] [address] documented as of this encounter Visit Diagnoses Not on filedocumented in this encounter Additional Health Concerns Infection Onset Date Last Indicated Resolved Time R/O COVID-19 12/28/2019 12/28/2019 12/30/2019 5:45 AM CDT COVID-19 12/28/2019 12/28/2019 01/27/2020 1:16 AM CDT documented as of this encounter Care Teams Clinical Trial Leader Relationship Specialty [place] [address] [facility] [address] [place] [address] PCP - General Internal Medicine 02/18/21 documented as of this encounter
--- OUTSIDE RECORDS SUMMARY | 2024-05-18 09:13 | XMS_ITS | Encounter Summary ---
Author Organization [facility] Address [address] [place] [address] Care Team Providers Care Lecturer In Computer Science Name Role Phone Kerwin Quiroga MD Primary Care Provider +1- [phone] Encounter Details Date Type Department Care Team (Latest Contact Info) Description 12/30/2000 Outpatient Historical HIS [facility] Jeremías Torres MD NO ADDRESS ON FILE Essential hypertension, benign (Primary Dx) Social History Tobacco Use Types Packs/Day Years Used Date Smoking Tobacco: Never Assessed Comments Unknown Sex and Gender Information Value Date Recorded Sex Assigned at Not on file Legal Sex Female 4:29 AM GLASS BLOWER Gender Identity Not on file Sexual Orientation Not on file documented as of this encounter Plan of Treatment Upcoming Encounters Date Type Department Care Team (Late st Contact Info) Description 05/20/2024 9:30 AM GLASS BLOWER Office Visit [facility] Internal Medicine Phuong Mahoney [address] [facility] [address] [place] [address] [place] [address] [facility] [address] [place] [address] 05/24/2024 11:45 AM GLASS BLOWER Office Visit [facility] Oncology and Hematology - Paras [address] [place] [address] Nelson Cazares MD [address] [facility] [address] [place] [address] 06/07/2024 12:00 PM CDT Appointment [facility] [address] [place] [address] [place] [address] [place] [phone] 06/07/2024 1:05 PM CDT Office Visit [facility] Breast Surgery Jazmin Couch [address] [place] [address] [place] [address] [place] [address] 06/20/2024 8:30 AM CDT Office Visit [facility] Internal Medicine Phuong Denzel [address] [place] [address] [place] [address] [place] [address] 06/20/2024 11:15 AM CDT Office Visit [facility] Endocrinology [address] [place] [address] Shanice Llamas MD [address] [place] [address] 12/08/2024 11:00 AM CDT Office Visit [facility] Heart and Vascular - [facility] [address] [place] [address] Nam Coto MD [address] [place] [address] documented as of this encounter Visit Diagnoses Diagnosis Essential hypertension, benign- Primary documented in this encounter Additional Health Concerns Infection Onset Date Last Indicated Resolved Time R/O COVID-19 12/28/2019 12/28/2019 12/30/2019 5:45 AM CDT COVID-19 12/28/2019 12/28/2019 01/27/2020 1:16 AM CDT documented as of this encounter Care Teams Lecturer In Computer Science Relationship Specialty [place] [address] [facility] [address] [place] [phone] PCP - General Internal Medicine 02/18/21 documented as of this encounter
--- OUTSIDE RECORDS SUMMARY | 2024-05-18 09:13 | XMS_ITS | Encounter Summary ---
Author Organization [facility] Address [address] [place] [address] Care Team Providers Care Email Specialist Name Role Phone Kerwin Quiroga MD Primary Care Provider +1- [phone] Encounter Details Date Type Department Care Team (Latest Contact Info) Description 05/23/2002 Outpatient Historical HIS [facility] Jeremías Torres MD NO ADDRESS ON FILE BENIGN HYPERTENSION (Primary Dx) Social History Tobacco Use Types Packs/Day Years Used Date Smoking Tobacco: Never Assessed Comments Unknown Sex and Gender Information Value Date Recorded Sex Assigned at Not on file Legal Sex Female 4:29 AM JAVA FLEX DEVELOPER Gender Identity Not on file Sexual Orientation Not on file documented as of this encounter Plan of Treatment Upcoming Encounters Date Type Department Care Team (Late st Contact Info) Description 05/20/2024 9:30 AM JAVA FLEX DEVELOPER Office Visit [facility] Internal Medicine Phuong Mahoney [address] [facility] [address] [place] [address] [place] [address] [address] [facility] [address] [facility] [place] [address] 05/24/2024 11:45 AM JAVA FLEX DEVELOPER Office Visit [facility] Oncology and Hematology - [address] [place] [address] Nelson Cazares MD [address] [facility] [address] [place] [address] 06/07/2024 12:00 PM CDT Appointment [facility] [address] [place] [address] [place] [address] [place] [phone] 06/07/2024 1:05 PM CDT Office Visit [facility] Breast Surgery Jazmin Couch [address] [place] [address] [place] [address] [place] [address] 06/20/2024 8:30 AM CDT Office Visit [facility] Internal Medicine Phuong Denzel [address] [address] [facility] [address] [place] [address] [place] [address] [place] [address] 06/20/2024 11:15 AM CDT Office Visit [facility] Endocrinology [address] [place] [address] Shanice Llamas MD [address] [facility] [address] [place] [address] 12/08/2024 11:00 AM CDT Office Visit [facility] Heart and Vascular - [facility] [address] [place] [address] Nam Coto MD [address] [facility] [address] [place] [address] documented as of this encounter Visit Diagnoses Diagnosis Essential hypertension, benign- Primary documented in this encounter Additional Health Concerns Infection Onset Date Last Indicated Resolved Time R/O COVID-19 12/28/2019 12/28/2019 12/30/2019 5:45 AM CDT COVID-19 12/28/2019 12/28/2019 01/27/2020 1:16 AM CDT documented as of this encounter Care Teams Email Specialist Relationship Specialty [place] [address] [facility] [address] [place] [address] PCP - General Internal Medicine 02/18/21 documented as of this encounter
--- OUTSIDE RECORDS SUMMARY | 2024-05-18 09:13 | XMS_ITS | Encounter Summary ---
Author Organization [facility] Address [address] [facility] Attn: Epic Prelude ADT [place] [address] Care Team Providers Care Bulk Sealer Name Role Phone Kerwin Quiroga MD Primary Care Provider +1- [phone] Encounter Details Date Type Department Care Team (Late Contact Info) Description 01/03/1991 Outpatient Historical Jeremías Farias MD NO ADDRESS ON FILE Social History Tobacco Use Types Packs/Day Years Used Date Smoking Tobacco: Never Assessed Comments Unknown Sex and Gender Information Value Date Recorded Sex Assigned at Not on file Legal Sex Female 4:29 AM STEAM BOX HAND Gender Identity Not on file Sexual Orientation Not on file documented as of this encounter Plan of Treatment Upcoming Encounters Date Type Department Care Team (Late st Contact Info) Description 05/20/2024 9:30 AM STEAM BOX HAND Office Visit [facility] Internal Medicine Phuong Mahoney [address] [place] [address] [place] [address] [place] [phone] 05/24/2024 11:45 AM STEAM BOX HAND Office Visit [facility] Oncology and Hematology - Par[address] [place] [address] Nelson Cazares MD [address] [facility] [address] [place] [address] 06/07/2024 12:00 PM CDT Appointment [facility] [address] [place] [address] [place] [address] [place] [phone] 06/07/2024 1:05 PM CDT [facility] Breast Surgery Jazmin Couch [address] [place] [address] [place] [address] [place] [address] 06/20/2024 8:30 AM CDT Office Visit [facility] Internal Medicine Phuong Denzel [address] [place] [address] [place] [address] [place] [address] 06/20/2024 11:15 AM CDT Office Visit [facility] Endocrinology [address] [place] [address] Shanice Llamas MD [address] [place] [address] 12/08/2024 11:00 AM CDT Office Visit [facility] Heart and Vascular - [facility] [address] [facility] [address] [place] [address] Nam Coto MD [address] [facility] [address] [place] [address] documented as of this encounter Visit Diagnoses Not on filedocumented in this encounter Additional Health Concerns Infection Onset Date Last Indicated Resolved Time R/O COVID-19 12/28/2019 12/28/2019 12/30/2019 5:45 AM CDT COVID-19 12/28/2019 12/28/2019 01/27/2020 1:16 AM CDT documented as of this encounter Care Teams Bulk Sealer Relationship Specialty [place] [address] [facility] [address] [place] [address] PCP - General Internal Medicine 02/18/21 documented as of this encounter
--- OUTSIDE RECORDS SUMMARY | 2024-05-18 09:13 | XMS_ITS | Encounter Summary ---
Author Organization [facility] Address [address] [place] [address] Care Team Providers Care Race Starter Name Role Phone Kerwin Quiroga MD Primary Care Provider +1- [phone] Encounter Details Date Type Department Care Team (Late st Contact Info) Description 09/13/2002 Outpatient Historical HIS [facility] Jeremías Farias MD NO ADDRESS ON FILE Social History Tobacco Use Types Packs/Day Years Used Date Smoking Tobacco: Never Assessed Comments Unknown Sex and Gender Information Value Date Recorded Sex Assigned at Not on file Legal Sex Female 4:29 AM PROJECT OFFICER Gender Identity Not on file Sexual Orientation Not on file documented as of this encounter Plan of Treatment Upcoming Encounters Date Type Department Care Team (Late st Contact Info) Description 05/20/2024 9:30 AM PROJECT OFFICER Office Visit [facility] Internal Medicine Phuong Denzel [address] [place] [address] [place] [address] [facility] [place] [address] 05/24/2024 11:45 AM PROJECT OFFICER Office Visit [facility] Oncology and Hematology - Paras [address] [facility] [address] [place] [address] Nelson Cazares MD [address] [facility] [address] [place] [address] 06/07/2024 12:00 PM CDT Appointment [facility] [address] [place] [address] [place] [address] [place] [phone] 06/07/2024 1:05 PM CDT Office Visit [facility] Breast Surgery Jazmin Couch [address] [place] [address] [place] [address] [place] [address] 06/20/2024 8:30 AM CDT Office Visit [facility] Internal Medicine Phuong Denzel [address] [facility] [address] [place] [address] [place] [address] [place] [address] 06/20/2024 11:15 AM CDT Office Visit [facility] Endocrinology [address] [place] [address] Shanice Llamas MD [address] [place] [address] 12/08/2024 11:00 AM CDT Office Visit [facility] Heart and Vascular - [facility] [address] [place] [address] Nam Coto MD [address] [facility] [address] [place] [address] documented as of this encounter Visit Diagnoses Not on filedocumented in this encounter Additional Health Concerns Infection Onset Date Last Indicated Resolved Time R/O COVID-19 12/28/2019 12/28/2019 12/30/2019 5:45 AM CDT COVID-19 12/28/2019 12/28/2019 01/27/2020 1:16 AM CDT documented as of this encounter Care Teams Race Starter Relationship Specialty [place] [address] [facility] [address] [place] [address] PCP - General Internal Medicine 02/18/21 documented as of this encounter
--- OUTSIDE RECORDS SUMMARY | 2024-05-18 09:13 | XMS_ITS | Encounter Summary ---
Author Organization [facility] Address [address] [place] [address] Care Team Providers Care Subgrade Tester Name Role Phone Kerwin Quiroga MD Primary Care Provider +1- [phone] Encounter Details Date Type Department Care Team (Latest Contact Info) Description 09/13/2002 Outpatient Historical HIS [facility] Jeremías Torres MD NO ADDRESS ON FILE LIVER DISORDER NOS (Primary Dx) Social History Tobacco Use Types Packs/Day Years Used Date Smoking Tobacco: Never Assessed Comments Unknown Sex and Gender Information Value Date Recorded Sex Assigned at Not on file Legal Sex Female 4:29 AM DRYWALL HANGER Gender Identity Not on file Sexual Orientation Not on file documented as of this encounter Plan of Treatment Upcoming Encounters Date Type Department Care Team (Late st Contact Info) Description 05/20/2024 9:30 AM DRYWALL HANGER Office Visit [facility] Internal Medicine Phuong Mahoney [address] [facility] [address] [place] [address] [place] [address] [address] [facility] [address] [facility] [place] [address] 05/24/2024 11:45 AM DRYWALL HANGER Office Visit [facility] Oncology and Hematology - Par[address] [place] [address] Nelson Cazares MD [address] [facility] [address] [place] [address] 06/07/2024 12:[address] [facility] [address] [place] [address] [place] [address] [place] [phone] 06/07/2024 1:05 PM CDT Office Visit [facility] Breast Surgery Jazmin Couch [address] [place] [address] [place] [address] [place] [address] 06/20/2024 8:30 AM CDT Office Visit [facility] Internal Medicine Phuong Denzel [address] [place] [address] [place] [address] [place] [address] 06/20/2024 11:15 AM CDT Office Visit [facility] Endocrinology [address] [place] [address] Shanice Llamas MD [address] [place] [address] 12/08/2024 11:00 AM CDT Office Visit [facility] [address] [address] [facility] [address] [address] [place] [address] Nam Coto MD [address] [place] [address] documented as of this encounter Visit Diagnoses Diagnosis Unspecified disorder of liver- Primary documented in this encounter Additional Health Concerns Infection Onset Date Last Indicated Resolved Time R/O COVID-19 12/28/2019 12/28/2019 12/30/2019 5:45 AM CDT COVID-19 12/28/2019 12/28/2019 01/27/2020 1:16 AM CDT documented as of this encounter Care Teams Subgrade Tester Relationship Specialty [place] [address] [facility] [address] [place] [phone] PCP - General Internal Medicine 02/18/21 documented as of this encounter
--- OUTSIDE RECORDS SUMMARY | 2024-05-18 09:13 | XMS_ITS | Encounter Summary ---
Author Organization [facility] Address [address] [place] [address] Care Team Providers Care Benefits Representative Name Role Phone Kerwin Quiroga MD Primary Care Provider +1- [phone] Encounter Details Date Type Department Care Team (Latest Contact Info) Description 09/10/1998 Outpatient Historical HIS [facility] Jeremías Torres MD NO ADDRESS ON FILE Abdominal pain, unspecified site (Primary Dx) Social History Tobacco Use Types Packs/Day Years Used Date Smoking Tobacco: Never Assessed Comments Unknown Sex and Gender Information Value Date Recorded Sex Assigned at Not on file Legal Sex Female 4:29 AM DESIGN ENGINEER MARINE EQUIPMENT Gender Identity Not on file Sexual Orientation Not on file documented as of this encounter Plan of Treatment Upcoming Encounters Date Type Department Care Team (Late st Contact Info) Description 05/20/2024 9:30 AM DESIGN ENGINEER MARINE EQUIPMENT Office Visit [facility] Internal Medicine Phuong Mahoney [address] [facility] [address] [place] [address] [place] [address] [facility] [address] [facility] [place] [place] [address] 05/24/2024 11:45 AM DESIGN ENGINEER MARINE EQUIPMENT Office Visit [facility] Oncology and Hematology - Par[address] [place] [address] Nelson Cazares MD [address] [facility] [address] [place] [address] 06/07/2024 12:00 PM CDT Appointment [facility] [address] [place] [address] [place] [address] [place] [phone] 06/07/2024 1:05 PM CDT Office Visit [facility] Breast Surgery Jazmin Couch [address] [place] [address] [place] [address] [place] [address] 06/20/2024 8:30 AM CDT Office Visit [facility] Internal Medicine Phuong Denzel [address] [place] [address] [place] [address] [place] [address] 06/20/2024 11:15 AM CDT Office Visit [facility] Endocrinology [address] [place] [address] Shanice Llamas MD [address] [place] [address] 12/08/2024 11:00 AM CDT Office Visit [facility] Heart and Vascular - [facility] [address] [place] [address] Nam Coto MD [address] [facility] [address] [place] [address] documented as of this encounter Visit Diagnoses Diagnosis Abdominal pain, unspecified site- Primary documented in this encounter Additional Health Concerns Infection Onset Date Last Indicated Resolved Time R/O COVID-19 12/28/2019 12/28/2019 12/30/2019 5:45 AM CDT COVID-19 12/28/2019 12/28/2019 01/27/2020 1:16 AM CDT documented as of this encounter Care Teams Benefits Representative Relationship Specialty Start [place] [address] [facility] [address] [place] [address] PCP - General Internal Medicine 02/18/21 documented as of this encounter
--- OUTSIDE RECORDS SUMMARY | 2024-05-18 09:13 | XMS_ITS | Encounter Summary ---
Author Organization [facility] Address [address] [place] [address] Care Team Providers Care Tire Technician Name Role Phone Kerwin Quiroga MD Primary Care Provider +1- [phone] Encounter Details Date Type Department Care Team (Late st Contact Info) Description 06/20/2008 Outpatient Historical [facility] Jacqueline Devlin MD [address] [place] [address] Esophageal Reflux Social History Tobacco Use Types Packs/Day Years Used Date Smoking Tobacco: Never Alcohol Use Standard Drinks/Week Comments Yes 0 (1 standard drink = 0.6 oz pur e alcohol) rare Comments No Sex and Gender Information Value Date Recorded Sex Assigned at Not on file Legal Sex Female 4:29 AM BACK OFFICE MEDICAL ASSISTANT Gender Identity Not on file Sexual Orientation Not on file documented as of this encounter Plan of Treatment Upcoming Encounters Date Type Department Care Team (Late Contact Info) Description 05/20/2024 9:30 AM BACK OFFICE MEDICAL ASSISTANT Office Visit [facility] Internal Medicine Phuong Mahoney [address] [facility] [address] [place] [address] [place] [address] [facility] [address] [place] [address] 05/24/2024 11:45 AM BACK OFFICE MEDICAL ASSISTANT Office Visit [facility] Oncology and Hematology - Paras [address] [facility] [address] [place] [address] Nelson Cazares MD [address] [facility] [address] [place] [address] 06/07/2024 12:[address] [facility] Jazmin Couch [address] [place] [address] [place] [address] [place] [address] 06/07/2024 1:05 PM CDT Office Visit [facility] Breast Surgery Jazmin Couch [address] [place] [address] [place] [address] [place] [address] 06/20/2024 8:30 AM CDT Office Visit [facility] Internal Medicine Phuong Mahoney [address] [facility] [address] [place] [address] [place] [address] [place] [address] 06/20/2024 11:15 AM CDT Office Visit [facility] Endocrinology [address] [place] [address] Shanice Llamas MD [address] [place] [address] 12/08/2024 11:00 AM CDT Office Visit [facility] Heart and Vascular - Old [facility] [address] [place] [address] Nam Coto MD [address] [facility] [address] [place] [address] documented as of this encounter Procedures Procedure Name Priority Date/Time Associated Diagnosis Comments PATHOLOGY Routine 06/20/2008 12:14 PM CDT POC GLUCOSE Routine 06/20/2008 10:43 AM CDT documented in this encounter Results * PATHOLOGY (06/20/2008 12:14 PM CDT) FINAL REPORT [facility] [address] [place], [place] [address] Patient: WILLIAM IZAGUIRRE : 1955 Procedure Date: 06/20/2008 Accession Date: 06/20/2008 Case No: [id number] Ordering Dr: JACQUELINE DEVLIN Case types AW, BW, FW, NW and SH are performed by [facility], [place], [place] SURGICAL PATHOLOGY & NON-GYNECOLOGIC CYTOPATHOLOGY REPORT DIAGNOSIS ESOPHAGUS, DISTAL, BIOPSY: - ESOPHAGITIS. - GASTRIC MUCOSA WITH ACTIVE GASTRITIS. Specimen Description: Distal esophagus biopsy. Operative Procedure: EGD. Patient Information/History /Diagnosis: Endoscopic findings c/w Sánchez's esophagus. Bx from this area above GE junction. Is there dysplasia? Gross: Received in a single container labeled William Izagurire., distal esophagus are two pieces of morejon tissue measuring 0.1 and 0.2 cm that are submitted in A1. LWL/LKP 06.20.2008 03:53 pm Microscopic: The slides are labeled [id number]. The biopsy consists of squamous mucosa in continuity with gastric mucosa. The squamous epithelium is focally parakeratotic at the gastroesophageal junction. There is minimal basal cell layer hyperplasia, mild spongiosis, and rare intraepithelial eosinophils. There is a detached fragment of squamous epithelium associated with frequent neutrophils, occasional eosinophils, and fibrinous exudate suggesting a focal erosion. The gastric mucosa contains a moderate chronic inflammatory infiltrate within the lamina propria with multifocal active gastritis. No intestinal metaplasia is seen. CSH/LINDEN 06.21.2008 11:30 am Staging Form: No. ELECTRONIC SIGNATURE FOR ANKUR MARIO M.D.- 06/21/08 12:30 pm INTERFACE SYSTEM 06/20/2008 12:1 4 PM CDT us Jacqueline Devlin MD PATHOLOGY/CYTOLOGY AIDA LEE Final Result INTERFACE SYSTEM Refer to clinic/hospital department * (ABNORMAL) POC GLUCOSE (06/20/2008 10:43 AM CDT) GLUCOSE POC 121(H) 65 - 99 mg/dL [facility] Venous blood specimen (specimen) 06/20/2008 10:43 AM CDT 06/20/2008 10:43 AM CDT us Jacqueline Devlin MD POINT OF CARE TESTING F inal Result Performing Organization Address [facility] de Phone Number INTERFACE SYSTEM Refer to clinic/hospital department [facility] CLIA# [id number] [address] [place] [address] documented in this encounter Visit Diagnoses Diagnosis Esophageal reflux documented in this encounter Additional Health Concerns Infection Onset Date Last Indicated Resolved Time R/O COVID-19 12/28/2019 12/28/2019 12/30/2019 5:45 AM CDT COVID-19 12/28/2019 12/28/2019 01/27/2020 1:16 AM CDT documented as of this encounter Care Teams Tire Technician Relationship Specialty [place] [address] [place] [address] PCP - General Internal Medicine 02/18/21 documented as of this encounter
--- OUTSIDE RECORDS SUMMARY | 2024-05-18 09:13 | XMS_ITS | Encounter Summary ---
Author Organization [facility] Address [address] [place] [address] Care Team Providers Care Building And Construction Manager Name Role Phone Kerwin Quiroga MD Primary Care Provider +1- [phone] Encounter Details Date Type Department Care Team (Late st Contact Info) Description 01/11/2003 Outpatient Historical [facility] INTERNISTS Jeremías Farias MD NO ADDRESS ON FILE Social History Tobacco Use Types Packs/Day Years Used Date Smoking Tobacco: Never Assessed Comments Unknown Sex and Gender Information Value Date Recorded Sex Assigned at Not on file Legal Sex Female 4:29 AM KNITTING MACHINE OPERATOR HELPER Gender Identity Not on file Sexual Orientation Not on file documented as of this encounter Plan of Treatment Upcoming Encounters Date Type Department Care Team (Late st Contact Info) Description 05/20/2024 9:30 AM KNITTING MACHINE OPERATOR HELPER Office Visit [facility] Internal Medicine Phuong Denzel [address] [place] [address] [place] [address] [facility] [place] [address] 05/24/2024 11:45 AM KNITTING MACHINE OPERATOR HELPER Office Visit [facility] Oncology and Hematology - Paras [address] [facility] 200 [place] [address] Nelson Cazares MD [address] [facility] [address] [place] [address] 06/07/2024 12:[address] [facility] Jazmin Couch [address] [place] [address] [place] [address] [place] [phone] 06/07/2024 1:05 PM CDT Office Visit [facility] Breast Surgery Jazmin Couch [address] [place] [address] [place] [address] [place] [address] 06/20/2024 8:30 AM CDT Office Visit [facility] Internal Medicine Phuong Denzel [address] [facility] [address] [place] [address] [place] [address] [place] [address] 06/20/2024 11:15 AM CDT Office Visit [facility] Endocrinology [address] [facility] [address] [place] [address] Shanice Llamas MD [address] [facility] [address] [place] [address] 12/08/2024 11:00 AM CDT Office Visit [facility] Heart and Vascular - [facility] [address] [place] [address] Nam Coto MD [address] [facility] [address] [place] [address] documented as of this encounter Visit Diagnoses Not on filedocumented in this encounter Additional Health Concerns Infection Onset Date Last Indicated Resolved Time R/O COVID-19 12/28/2019 12/28/2019 12/30/2019 5:45 AM CDT COVID-19 12/28/2019 12/28/2019 01/27/2020 1:16 AM CDT documented as of this encounter Care Teams Building And Construction Manager Relationship Specialty [place] [address] [facility] [address] [place] [address] PCP - General Internal Medicine 02/18/21 documented as of this encounter
--- OUTSIDE RECORDS SUMMARY | 2024-05-18 09:13 | XMS_ITS | Encounter Summary ---
Author Organization [facility] Address [address] [facility] Attn: Epic Prelude ADT [place] [address] Care Team Providers Care Business Risk Analyst Name Role Phone Kerwin Quiroga MD Primary Care Provider +1- [phone] Encounter Details Date Type Department Care Team (Late Contact Info) Description 03/25/1994 Outpatient Historical Jeremías Farias MD NO ADDRESS ON FILE Social History Tobacco Use Types Packs/Day Years Used Date Smoking Tobacco: Never Assessed Comments Unknown Sex and Gender Information Value Date Recorded Sex Assigned at Not on file Legal Sex Female 4:29 AM DESKTOP MANAGER Gender Identity Not on file Sexual Orientation Not on file documented as of this encounter Plan of Treatment Upcoming Encounters Date Type Department Care Team (Late st Contact Info) Description 05/20/2024 9:30 AM DESKTOP MANAGER Office Visit [facility] Internal Medicine Phuong Mahoney [address] [place] [address] [place] [address] [place] [address] 05/24/2024 11:45 AM DESKTOP MANAGER Office Visit [facility] Oncology and Hematology - Paras [address] [place] [address] Nelson Cazares MD [address] [facility] [address] [place] [address] 06/07/2024 12:00 PM CDT Appointment [facility] Jazmin Couch [address] [place] [address] [place] [address] [place] [phone] 06/07/2024 1:05 PM CDT Office Visit [facility] Breast Surgery Jazmin Couch [address] [place] [address] [place] [address] [place] [address] 06/20/2024 8:30 AM CDT Office Visit [facility] Internal Medicine Phuong Denzel [address] [place] [address] [place] [address] [place] [address] 06/20/2024 11:15 AM CDT Office Visit [facility] Endocrinology [address] [place] [address] Shanice Llamas MD [address] [place] [address] 12/08/2024 11:00 AM CDT Office Visit [facility] Heart and Vascular - Old [facility] [employer] [facility] [address] [place] [address] Nam Coto MD [address] [facility] [address] [place] [address] documented as of this encounter Visit Diagnoses Not on filedocumented in this encounter Additional Health Concerns Infection Onset Date Last Indicated Resolved Time R/O COVID-19 12/28/2019 12/28/2019 12/30/2019 5:45 AM CDT COVID-19 12/28/2019 12/28/2019 01/27/2020 1:16 AM CDT documented as of this encounter Care Teams Business Risk Analyst Relationship Specialty [place] [address] [facility] [address] [place] [address] PCP - General Internal Medicine 02/18/21 documented as of this encounter
--- OUTSIDE RECORDS SUMMARY | 2024-05-18 09:13 | XMS_ITS | Encounter Summary ---
Author Organization [facility] Address [address] [place] [address] Care Team Providers Care Insurance Clerk Name Role Phone Kerwin Quiroga MD Primary Care Provider +1- [phone] Encounter Details Date Type Department Care Team (Late st Contact Info) Description 03/24/2003 Outpatient Historical [facility] Thomas Gray MD [address] [place] [address] Er, Authorized P NO ADDRESS ON FILE CONTUSION OF FOOT (Primary Dx) Social History Tobacco Use Types Packs/Day Years Used Date Smoking Tobacco: Never Assessed Comments Unknown Sex and Gender Information Value Date Recorded Sex Assigned at Not on file Legal Sex Female 4:29 AM HAND DEVELOPER Gender Identity Not on file Sexual Orientation Not on file documented as of this encounter Plan of Treatment Upcoming Encounters Date Type Department Care Team (Late Contact Info) Description 05/20/2024 9:30 AM HAND DEVELOPER Office Visit [facility] Internal Medicine Phuong Mahoney [address] [place] [address] [place] [address] [place] [address] 05/24/2024 11:45 AM HAND DEVELOPER Office Visit [facility] Oncology and Hematology - Paras [address] [facility] [address] [place] [address] Nelson Cazares MD [address] [facility] [address] [place] [address] 06/07/2024 12:00 PM CDT Appointment [facility] Jazmin Couch [address] [place] [address] [place] [address] [place] [address] 06/07/2024 1:05 PM CDT Office Visit [facility] Breast Surgery Jazmin Couch [address] [place] [address] [place] [address] [place] [address] 06/20/2024 8:30 AM CDT Office Visit [facility] Internal Medicine Phuong Mahoney [address] [place] [address] [place] [address] [place] [address] 06/20/2024 11:15 AM CDT Office Visit [facility] Endocrinology [address] [place] [address] Shanice Llamas MD [address] [place] [address] 12/08/2024 11:00 AM CDT Office Visit [facility] Heart and Vascular - [facility] [address] [place] [address] Nam Coto MD [address] [facility] [address] [place] [address] documented as of this encounter Visit Diagnoses Diagnosis Contusion of foot- Primary documented in this encounter Additional Health Concerns Infection Onset Date Last Indicated Resolved Time R/O COVID-19 12/28/2019 12/28/2019 12/30/2019 5:45 AM CDT COVID-19 12/28/2019 12/28/2019 01/27/2020 1:16 AM CDT documented as of this encounter Care Teams Insurance Clerk Relationship Specialty [place] [address] [facility] [address] [place] [address] PCP - General Internal Medicine 02/18/21 documented as of this encounter
--- OUTSIDE RECORDS SUMMARY | 2024-05-18 09:13 | XMS_ITS | Encounter Summary ---
Author Organization [facility] Address [address] [place] [address] Care Team Providers Care Bone Process Operator Name Role Phone Kerwin Quiroga MD Primary Care Provider +1- [phone] Encounter Details Date Type Department Care Team (Late st Contact Info) Description 03/29/2008 Outpatient Historical [facility] Yasemin Magallon MD NO ADDRESS ON FILE Unspecified Backache Social History Tobacco Use Types Packs/Day Years Used Date Smoking Tobacco: Never Alcohol Use Standard Drinks/Week Comments Yes 0 (1 standard drink = 0.6 oz pur e alcohol) rare Comments No Sex and Gender Information Value Date Recorded Sex Assigned at Not on file Legal Sex Female 4:29 AM TOUR COUNSELOR Gender Identity Not on file Sexual Orientation Not on file documented as of this encounter Plan of Treatment Upcoming Encounters Date Type Department Care Team (Late st Contact Info) Description 05/20/2024 9:30 AM TOUR COUNSELOR Office Visit [facility] Internal Medicine Karson Mahoney [address] [place] [address] [place] [address] [place] [address] 05/24/2024 11:45 AM TOUR COUNSELOR Office Visit [facility] Oncology and Hematology - Paras [address] [facility] [address] [place] [address] Nelson Cazares MD [address] [facility] [address] [place] [address] 06/07/2024 12:00 PM CDT Appointment [facility] Breast [place] Jazmin Couch [address] [place] [address] [place] [address] [place] [phone] 06/07/2024 1:05 PM CDT Office Visit [facility] Breast Surgery Jazmin Couch [address] [place] [address] [place] [address] [place] [address] 06/20/2024 8:30 AM CDT Office Visit [facility] Internal Medicine Karson Mahoney [address] [place] [address] [place] [address] [place] [address] 06/20/2024 11:15 AM CDT Office Visit [facility] Endocrinology [address] [place] [address] Shanice Llamas MD [address] [facility] [address] [place] [address] 12/08/2024 11:00 AM CDT Office Visit [facility] Heart and Vascular - [facility] [address] [place] [address] Nam Coto MD [address] [facility] [address] [place] [address] documented as of this encounter Visit Diagnoses Diagnosis Backache, unspecified documented in this encounter Additional Health Concerns Infection Onset Date Last Indicated Resolved Time R/O COVID-19 12/28/2019 12/28/2019 12/30/2019 5:45 AM CDT COVID-19 12/28/2019 12/28/2019 01/27/2020 1:16 AM CDT documented as of this encounter Care Teams Bone Process Operator Relationship Specialty [place] [address] [facility] [address] [place] [phone] PCP - General Internal Medicine 02/18/21 documented as of this encounter
--- OUTSIDE RECORDS SUMMARY | 2024-05-18 09:13 | XMS_ITS | Encounter Summary ---
Author Organization [facility] Address [address] [place] [address] Care Team Providers Care Powerhouse Laborer Name Role Phone Kerwin Quiroga MD Primary Care Provider +1- [phone] Encounter Details Date Type Department Care Team (Latest Contact Info) Description 04/02/1999 Outpatient Historical [facility] Jeremías Torres MD NO ADDRESS ON FILE Essential hypertension, benign (Primary Dx) Social History Tobacco Use Types Packs/Day Years Used Date Smoking Tobacco: Never Assessed Comments Unknown Sex and Gender Information Value Date Recorded Sex Assigned at Not on file Legal Sex Female 4:29 AM SERVICE WRITER Gender Identity Not on file Sexual Orientation Not on file documented as of this encounter Plan of Treatment Upcoming Encounters Date Type Department Care Team (Late st Contact Info) Description 05/20/2024 9:30 AM SERVICE WRITER Office Visit [facility] Internal Medicine Phuong Mahoney [address] [facility] [address] [place] [address] [place] [address] [address] [facility] [address] [place] [address] 05/24/2024 11:45 AM SERVICE WRITER Office Visit [facility] Oncology and Hematology - Paras [address] [place] [address] Nelson Cazares MD [address] [facility] [address] [place] [address] 06/07/2024 12:00 PM CDT Appointment [facility] Jaz[address] [place] [address] [place] [address] [place] [phone] 06/07/2024 1:05 PM CDT Office Visit [facility] Breast Surgery Jazmin Couch [address] [place] [address] [place] [address] [place] [address] 06/20/2024 8:30 AM CDT Office Visit [facility] Internal Medicine Phuong Denzel [address] [place] [address] [place] [address] [place] [address] 06/20/2024 11:15 AM CDT Office Visit [facility] Endocrinology [address] [place] [address] Shanice Llamas MD [address] [place] [address] 12/08/2024 11:00 AM CDT Office Visit [facility] Heart and Vascular - [facility] [place] [facility] [address] [place] [address] Nam Coto MD [address] [address] [place] [address] documented as of this encounter Visit Diagnoses Diagnosis Essential hypertension, benign- Primary documented in this encounter Additional Health Concerns Infection Onset Date Last Indicated Resolved Time R/O COVID-19 12/28/2019 12/28/2019 12/30/2019 5:45 AM CDT COVID-19 12/28/2019 12/28/2019 01/27/2020 1:16 AM CDT documented as of this encounter Care Teams Powerhouse Laborer Relationship Specialty [place] [address] [facility] [address] [place] [address] PCP - General Internal Medicine 02/18/21 documented as of this encounter
--- OUTSIDE RECORDS SUMMARY | 2024-05-18 09:14 | XMS_ITS | Encounter Summary ---
Author Organization [facility] Address [address] [place] [address] Care Team Providers Care Inspector Balance Truing Name Role Phone Kerwin Quiroga MD Primary Care Provider +1- [phone] Encounter Details Date Type Department Care Team (Late Contact Info) Description 10/09/2008 Outpatient Historical [facility] Boy Kaufman MD [address] [place] [address] Social History Tobacco Use Types Packs/Day Years Used Date Smoking Tobacco: Never Alcohol Use Standard Drinks/Week Comments Yes 0 (1 standard drink = 0.6 oz pur e alcohol) rare Comments No Sex and Gender Information Value Date Recorded Sex Assigned at Not on file Legal Sex Female 4:29 AM PRODUCTION FLOATER Gender Identity Not on file Sexual Orientation Not on file documented as of this encounter Plan of Treatment Upcoming Encounters Date Type Department Care Team (Late Contact Info) Description 05/20/2024 9:30 AM PRODUCTION FLOATER Office Visit [facility] Internal Medicine Phuong Mahoney [address] [facility] [address] [place] [address] [place] [address] [address] [facility] [address] [place] [address] 05/24/2024 11:45 AM PRODUCTION FLOATER Office Visit [facility] Oncology and Hematology - Paras [address] [facility] 200 [place] [address] Nelson Cazares MD [address] [facility] [address] [place] [address] 06/07/2024 12:00 PM CDT Appointment [facility] Jazmin Couch [address] [place] [address] [place] [address] [place] [address] 06/07/2024 1:05 PM CDT Office Visit [facility] Breast Surgery Jazmin Couch [address] [place] [address] [place] [address] [facility] [address] [place] [address] 06/20/2024 8:30 AM CDT Office Visit [facility] Internal Medicine Phuong Mahoney [address] [facility] [address] [place] [address] [place] [address] [place] [address] 06/20/2024 11:15 AM CDT Office Visit [facility] Endocrinology [address] [place] [address] Shanice Llamas MD [address] [facility] [address] [place] [address] 12/08/2024 11:00 AM CDT Office Visit [facility] Heart and Vascular - [facility] [address] [place] [address] Nam Coto MD [address] [facility] [address] [place] [address] documented as of this encounter Visit Diagnoses Not on filedocumented in this encounter Additional Health Concerns Infection Onset Date Last Indicated Resolved Time R/O COVID-19 12/28/2019 12/28/2019 12/30/2019 5:45 AM CDT COVID-19 12/28/2019 12/28/2019 01/27/2020 1:16 AM CDT documented as of this encounter Care Teams Inspector Balance Truing Relationship Specialty [place] [address] [facility] [address] [place] [phone] PCP - General Internal Medicine 02/18/21 documented as of this encounter
--- OUTSIDE RECORDS SUMMARY | 2024-05-18 09:14 | XMS_ITS | Encounter Summary ---
Author Organization [facility] Address [address] [place] [address] Care Team Providers Care Screen And Cyclone Repairer Name Role Phone Kerwin Quiroga MD Primary Care Provider +1- [phone] Encounter Details Date Type Department Care Team (Late st Contact Info) Description 09/16/2008 Outpatient Historical [facility] Er, Authorized P NO ADDRESS ON FILE Doe Basurto MD [address] [place] [address] Emergency Department [place], [place] [id number] Social History Tobacco Use Types Packs/Day Years Used Date Smoking Tobacco: Never Alcohol Use Standard Drinks/Week Comments Yes 0 (1 standard drink = 0.6 oz pur e alcohol) rare Comments No Sex and Gender Information Value Date Recorded Sex Assigned at Not on file Legal Sex Female 4:29 AM CHOCOLATE FINISHER Gender Identity Not on file Sexual Orientation Not on file documented as of this encounter Plan of Treatment Upcoming Encounters Date Type Department Care Team (Late st Contact Info) Description 05/20/2024 9:30 AM CHOCOLATE FINISHER Office Visit [facility] Internal Medicine Phuong Mahoney [address] [place] [address] [place] [address] [place] [address] 05/24/2024 11:45 AM CHOCOLATE FINISHER Office Visit [facility] Oncology and Hematology - Paras [address] [place] [address] Nelson Cazares MD [address] [facility] [address] [place] [address] 06/07/2024 12:00 PM CDT Appointment [facility] Jazmin Couch [address] [place] [address] [place] [address] [place] [address] 06/07/2024 1:05 PM CDT Office [facility] Breast Surgery [place]hoa [address] [place] [address] [place] [address] [place] [address] 06/20/2024 8:30 AM CDT Office Visit [facility] Internal Medicine Phuong Mahoney [address] [address] [facility] [address] [place] [address] [place] [address] [place] [address] 06/20/2024 11:15 AM CDT Office Visit [facility] Endocrinology [address] [place] [address] Shanice Llamas MD [address] [place] [address] 12/08/2024 11:00 AM CDT Office Visit [facility] Heart and Vascular - [facility] [address] [facility] [address] [address] [place] [address] Nam Coto MD [address] [facility] [address] [place] [address] documented as of this encounter Visit Diagnoses Not on filedocumented in this encounter Additional Health Concerns Infection Onset Date Last Indicated Resolved Time R/O COVID-19 12/28/2019 12/28/2019 12/30/2019 5:45 AM CDT COVID-19 12/28/2019 12/28/2019 01/27/2020 1:16 AM CDT documented as of this encounter Care Teams Screen And Cyclone Repairer Relationship Specialty [place] [address] [facility] [address] [place] [phone] PCP - General Internal Medicine 02/18/21 documented as of this encounter
[2024-05-18 09:42] LABS: Basophils Absolute Auto 0.1 K/mm3 (0.0-0.1); Basophils Percent Auto 0.9 % (0.2-1.2); Eosinophils Absolute Auto 0.3 K/mm3 (0-0.3); Eosinophils Percent Auto 3.4 % (0-4.4); Hematocrit 41.6 % (37.0-47.0); Hemoglobin 13.2 g/dL (12.0-15.0); Immature Granulocyte Absolute 0.02 K/mm3 (0.00-0.031); Immature Granulocyte Percent A 0.3 % (0-0.5); Lymphocytes Absolute Auto 1.34 K/mm3 (0.9-3.2); Lymphocytes Percent Auto 18.1 % (18.3-44.2); Mean Corpuscular HGB Conc 31.7 g/dl (32-36); Mean Corpuscular Volume 88.1 fl (80-100); Mean Platelet Volume 10.9 fl (7.4-10.4); Monocytes Absolute Auto 0.6 K/mm3 (0.1-0.6); Monocytes Percent Auto 8.4 % (2.6-8.5); Neutrophils Absolute Auto 5.1 K/mm3 (1.3-6.7); Neutrophils Percent Auto 68.9 % (45.5-73.1); Platelet Count Result 199 k/mm3 (150-375); Red Blood Count 4.72 M/mm3 (4.2-5.4); Red Cell Distribution Width 13.6 % (11.5-14.5); White Blood Count 7.4 K/mm3 (4.5-10.0)
[2024-05-18 13:49] LABS: Alanine Aminotransferase 22 U/L (6-35); Albumin Level 3.4 g/dL (3.5-5.1); Alkaline Phosphatase 70 U/L (38-126); Anion Gap 8 mmol/L (4-12); Aspartate Amino Transferase 30 U/L (14-36); Bilirubin,Total 0.6 mg/dL (0.2-1.3); Blood Urea Nitrogen 11 mg/dL (7-17); Calcium 9.1 mg/dL (8.4-10.2); Carbon Dioxide 30 mmol/L (22-30); Chloride 102 mmol/L (98-107); Estimated Glomerular Filt Rate > 60; Glucose 198 mg/dL (65-110); Potassium 4.3 mmol/L (3.4-5.0); Sodium 140 mmol/L (137-145)
[2024-05-19 08:08] LABS: CA 15-3 5 U/mL (<32)
== END 2024-05-18 09:07 | disposition home or self-care (01) ==
LOC: ANHLAB 09:07
PROVIDERS: Visit Provider Internal Medicine Hematology & Oncology
DX: C50.911 Malignant neoplasm of unspecified site of right female breast (principal)
CPT/HCPCS: 36415; 80053; 85025; 86300

== ENCOUNTER 2024-09-12 09:50 | Outpatient (CLI) | payer MEDICARE, SELFPAY ==
[2024-09-12 10:10] LABS: Basophils Absolute Auto 0.1 K/mm3 (0.0-0.1); Basophils Percent Auto 0.7 % (0.2-1.2); Eosinophils Absolute Auto 0.2 K/mm3 (0-0.3); Eosinophils Percent Auto 3.3 % (0-4.4); Hematocrit 39.9 % (37.0-47.0); Hemoglobin 12.8 g/dL (12.0-15.0); Immature Granulocyte Absolute 0.04 K/mm3 (0.00-0.031); Immature Granulocyte Percent A 0.6 % (0-0.5); Lymphocytes Absolute Auto 1.29 K/mm3 (0.9-3.2); Lymphocytes Percent Auto 18.8 % (18.3-44.2); Mean Corpuscular HGB Conc 32.1 g/dl (32-36); Mean Corpuscular Hemoglobin 26.4 pg (26-34); Mean Corpuscular Volume 82.4 fl (80-100); Mean Platelet Volume 10.5 fl (7.4-10.4); Monocytes Absolute Auto 0.6 K/mm3 (0.1-0.6); Monocytes Percent Auto 8.1 % (2.6-8.5); Neutrophils Absolute Auto 4.7 K/mm3 (1.3-6.7); Neutrophils Percent Auto 68.5 % (45.5-73.1); Platelet Count Result 273 k/mm3 (150-375); Red Blood Count 4.84 M/mm3 (4.2-5.4); Red Cell Distribution Width 13.6 % (11.5-14.5); White Blood Count 6.9 K/mm3 (4.5-10.0)
--- OUTSIDE RECORDS SUMMARY | 2024-09-12 10:33 | XMS_ITS | Encounter Summary ---
Author Organization [facility] Address [address] 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 PCP: joslyn. ALTERNATIVE PHONE NUMBER: [phone] WHO CALLED: Patient called. PHARMACY NUMBER: [phone] PROBLEMS: Pt is calling in stating she [...] Care Team (Late st Contact Info) Description 09/21/2024 11:30 AM CDT Office Visit [facility] Oncology and Hematology - Paras [address] [facility] [address] [place] [address] Nelson Cazares MD [address] [facility] [address] [place] [address] 10/04/2024 9:45 AM CDT Office Visit [facility] Orthopedic Surgery at the [facility] Medicine [address] [facility] [address] [place] [address] [place] [address] [place] [address] 12/08/2024 11:00 AM CDT Office Visit [facility] Heart and Vascular - [facility] [address] [address] [facility] [address] [place] [address] Nam Coto MD [address] [facility] [address] [place] [address] 06/13/2025 10:00 AM CDT Appointment [facility] Jazmin [address] [place] [address] [place] [address] [place] [address] 06/13/2025 11:05 AM CDT Office Visit [facility] Breast Surgery Jazmin Couch [address] [place] [address] [place] [address] [facility] [address] [place] [address] documented as of this encounter Visit Diagnoses Not on filedocumented in this encounter Additional Health Concerns Infection Onset Date Last Indicated Resolved Time R/O COVID-19 12/28/2019 12/28/2019 12/30/2019 5:45 AM CDT COVID-19 12/28/2019 12/28/2019 01/27/2020 1:16 AM CDT documented as of this encounter Care Teams Caustic Preparer Relationship Specialty [place] [address] [facility] [address] [place] [address] PCP - General Internal Medicine 02/18/21 documented as of this encounter
--- OUTSIDE RECORDS SUMMARY | 2024-09-12 10:33 | XMS_ITS | Encounter Summary ---
Author Organization [facility] Address [address] 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 LAST VISIT: PCP: joslyn. ALTERNATIVE PHONE NUMBER: [phone] WHO CALLED: Patient called. PHARMACY NUMBER: [phone] PROBLEMS: Pt is calling in with head [...] Description 09/21/2024 11:30 AM CDT Office Visit [facility] Oncology and Hematology - Paras [address] [facility] [address] [place] [address] Nelson Cazares MD [address] [facility] [address] [place] [address] 10/04/2024 9:45 AM CDT Office Visit [facility] Orthopedic Surgery at the [facility] [address] [facility] [address] [place] [address] [place] [address] [place] [address] 12/08/2024 11:00 AM CDT Office Visit [facility] Heart and Vascular - [place] [address] [place] [address] Nam Coto MD [address] [facility] [facility] [address] [place] [address] 06/13/2025 10:00 AM CDT Appointment [facility] [address] [place] [address] [place] [address] [facility] [address] [place] [address] 06/13/2025 11:05 AM CDT [facility] [address] [facility] [facility] [facility] [address] [place] [address] [place] [address] [facility] [address] [place] [address] documented as of this encounter Visit Diagnoses Not on filedocumented in this encounter Additional Health Concerns Infection Onset Date Last Indicated Resolved Time R/O COVID-19 12/28/2019 12/28/2019 12/30/2019 5:45 AM CDT COVID-19 12/28/2019 12/28/2019 01/27/2020 1:16 AM CDT documented as of this encounter Care Teams Training And Development Coordinator Relationship Specialty [place] [address] [facility] [address] [place] [phone] PCP - General Internal Medicine 02/18/21 documented as of this encounter
--- OUTSIDE RECORDS SUMMARY | 2024-09-12 10:33 | XMS_ITS | Encounter Summary ---
Author Organization [facility] Address [address] [place] [address] Care Team Providers Care Intelligence Clerk Name Role Phone Kerwin Quiroga MD Primary Care Provider +1- [phone] Encounter Details Date Type Department Care Team (Late st Contact Info) Description 03/08/2007 Outpatient Historical [facility] Internal Medicine [facility] [address] [facility] [address] [place] [address] Saturnino ms, MD Yasemin Social History Tobacco Use Types Packs/Day Years Used Date Smoking Tobacco: Never Assessed Comments Unknown Sex and Gender Information Value Date Recorded Sex Assigned at Not on file 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 Gender Identity Not on file Sexual Orientation Not on file documented as of this encounter Plan of Treatment Upcoming Encounters Date Type Department Care Team (Late st Contact Info) Description 09/21/2024 11:30 AM CDT Office Visit [facility] Oncology and Hematology - Paras [address] [facility] [address] [place] [address] Nelson Cazares MD [address] [facility] [address] [place] [address] 10/04/2024 9:45 AM CDT Office Visit [facility] Orthopedic Surgery at the [facility] [address] [facility] [address] [place] [address] [place] [address] [place] [address] 12/08/2024 11:00 AM CDT Office Visit [facility] Heart and Vascular - [place] [address] [place] [address] Nam Coto MD [address] [facility] [address] [place] [address] 06/13/2025 10:00 AM CDT Appointment [facility] [place] [address] [place] [address] [place] [address] [facility] [address] [place] [address] 06/13/2025 11:05 AM CDT Office Visit [facility] Breast Surgery [place] [address] [address] [facility] [address] [place] [address] [place] [address] [facility] [address] [place] [address] documented as of this encounter Visit Diagnoses Not on filedocumented in this encounter Additional Health Concerns Infection Onset Date Last Indicated Resolved Time R/O COVID-19 12/28/2019 12/28/2019 12/30/2019 5:45 AM CDT COVID-19 12/28/2019 12/28/2019 01/27/2020 1:16 AM CDT documented as of this encounter Care Teams Intelligence Clerk Relationship Specialty Start [place] [address] [place] [phone] PCP - General Internal Medicine 02/18/21 documented as of this encounter
--- OUTSIDE RECORDS SUMMARY | 2024-09-12 10:33 | XMS_ITS | Encounter Summary ---
Author Organization [facility] Address [address] [place] [address] Care Team Providers Care Continuous Absorption Process Operator Name Role Phone Kerwin Quiroga MD Primary Care Provider +1- [phone] Encounter Details Date Type Department Care Team (Late st Contact Info) Description 03/08/2007 Outpatient Historical [facility] Internal Medicine [facility] [address] [facility] [address] [place] [address] Saturnino ms, MD Yasemin Social History Tobacco Use Types Packs/Day Years Used Date Smoking Tobacco: Never Assessed Comments Unknown Sex and Gender Information Value Date Recorded Sex Assigned at Not on file 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 Gender Identity Not on file Sexual Orientation Not on file documented as of this encounter Plan of Treatment Upcoming Encounters Date Type Department Care Team (Late st Contact Info) Description 09/21/2024 11:30 AM CDT Office Visit [facility] Oncology and Hematology - Paras [address] [facility] [address] [place] [address] Nelson Cazares MD [address] [facility] [address] [place] [address] 10/04/2024 9:45 AM CDT Office Visit [facility] Orthopedic Surgery at the [facility] [address] [place] [address] [place] [address] [place] [address] 12/08/2024 11:00 AM CDT Office Visit [facility] Heart and Vascular - [place] [address] [place] [address] Nam Coto MD [address] [facility] [address] [place] [address] 06/13/2025 10:00 AM CDT Appointment [facility] [place] [address] [place] [address] [place] [address] [facility] [address] [place] [address] 06/13/2025 11:05 AM CDT Office Visit [facility] Breast Surgery [place] Couch [address] [facility] [address] [place] [address] [place] [address] [facility] [address] [place] [address] documented as of this encounter Visit Diagnoses Not on filedocumented in this encounter Additional Health Concerns Infection Onset Date Last Indicated Resolved Time R/O COVID-19 12/28/2019 12/28/2019 12/30/2019 5:45 AM CDT COVID-19 12/28/2019 12/28/2019 01/27/2020 1:16 AM CDT documented as of this encounter Care Teams Continuous Absorption Process Operator Relationship Specialty [place] [address] [place] [phone] PCP - General Internal Medicine 02/18/21 documented as of this encounter
--- OUTSIDE RECORDS SUMMARY | 2024-09-12 10:34 | XMS_ITS | Encounter Summary ---
Author Organization [facility] Address [address] [place] [address] Care Team Providers Care Loop Cutter Name Role Phone Kerwin Quiroga MD Primary Care Provider +1- [phone] Encounter Details Date Type Department Care Team (Late st Contact Info) Description 01/08/2007 Outpatient Historical [facility] Internal Medicine [place] [address] [facility] [address] [place] [address] Saturnino ms, MD Yasemin Social History Tobacco Use Types Packs/Day Years Used Date Smoking Tobacco: Never Assessed Comments Unknown Sex and Gender Information Value Date Recorded Sex Assigned at Not on file 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 Gender Identity Not on file Sexual Orientation [...] 2:15 PM CDT Height 161.9 cm (5' 3.75) 01/08/2007 2:15 PM CD T Body Mass Index 34.25 01/08/2007 2:15 PM CDT documented in this encounter Plan of Treatment Upcoming Encounters Date Type Department Care Team (Late st Contact Info) Description 09/21/2024 11:30 AM CDT Office Visit [facility] Oncology and Hematology - Paras [address] [facility] [address] [place] [address] Nelson Cazares MD [address] [facility] [address] [place] [address] 10/04/2024 9:45 AM CDT Office Visit [facility] Orthopedic Surgery at the [facility] [address] [facility] [address] [place] [address] [place] [address] [place] [address] 12/08/2024 11:00 AM CDT Office Visit [facility] Heart and Vascular - [facility] [address] [place] [address] Nam Coto MD [address] [facility] [address] [place] [address] 06/13/2025 10:00 AM CDT Appointment [facility] [place] [address] [place] [address] [place] [address] [facility] [address] [place] [address] 06/13/2025 11:05 AM CDT Office Visit [facility] Breast Surgery [place] [address] [facility] [address] [place] [address] [place] [address] [facility] [address] [place] [address] documented as of this encounter Visit Diagnoses Not on filedocumented in this encounter Additional Health Concerns Infection Onset Date Last Indicated Resolved Time R/O COVID-19 12/28/2019 12/28/2019 12/30/2019 5:45 AM CDT COVID-19 12/28/2019 12/28/2019 01/27/2020 1:16 AM CDT documented as of this encounter Care Teams Loop Cutter Relationship Specialty [place] [address] [facility] [address] [place] [phone] PCP - General Internal Medicine 02/18/21 documented as of this encounter
--- OUTSIDE RECORDS SUMMARY | 2024-09-12 10:34 | XMS_ITS | Encounter Summary ---
Author Organization [facility] Address 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 Gender Identity Not on file Sexual Orientation Not on file documented as of this encounter Plan of Treatment Upcoming Encounters Date Type Department Care Team (Late Contact Info) Description 09/21/2024 11:30 AM CDT Office Visit [facility] Oncology and Hematology - Paras [address] [facility] [address] [place] [address] Nelson Cazares MD [address] [facility] [address] [place] [address] 10/04/2024 9:45 AM CDT Office Visit [facility] Orthopedic Surgery at the [facility] [address] [facility] [address] [place] [address] [place] [address] [place] [address] 12/08/2024 11:00 AM CDT Office Visit [facility] Heart and Vascular - [place] [address] [place] [address] Nam Coto MD [address] [facility] [address] [place] [address] 06/13/2025 10:00 AM CDT [facility] [place] [address] [place] [address] [place] [address] [facility] [address] [place] [address] 06/13/2025 11:05 AM CDT Office Visit [facility] Breast Surgery [place] C[place] [address] [place] [address] [place] [address] [facility] [address] [place] [address] documented as of this encounter Visit Diagnoses Not on filedocumented in this encounter Additional Health Concerns Infection Onset Date Last Indicated Resolved Time R/O COVID-19 12/28/2019 12/28/2019 12/30/2019 5:45 AM CDT COVID-19 12/28/2019 12/28/2019 01/27/2020 1:16 AM CDT documented as of this encounter Care Teams Nutritional Health Coach Relationship Specialty [place] [address] [place] [phone] PCP - General Internal Medicine 02/18/21 documented as of this encounter
--- OUTSIDE RECORDS SUMMARY | 2024-09-12 10:34 | XMS_ITS | Encounter Summary ---
Author Organization [facility] Address 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 Gender Identity Not on file Sexual Orientation Not on file documented as of this encounter Plan of Treatment Upcoming Encounters Date Type Department Care Team (Late Contact Info) Description 09/21/2024 11:30 AM CDT Office Visit [facility] Oncology and Hematology - Paras [address] [facility] [address] [place] [address] Nelson Cazares MD [address] [facility] [address] [place] [address] 10/04/2024 9:45 AM CDT Office Visit [facility] Orthopedic Surgery at the [facility] [address] [facility] [address] [place] [address] [place] [address] [place] [address] 12/08/2024 11:00 AM CDT Office Visit [facility] Heart and Vascular - [place] [address] [place] [address] Nam Coto MD [address] [facility] [address] [place] [address] 06/13/2025 10:00 AM CDT [facility]ment [facility] [address] [place] [address] [place] [address] [facility] [address] [place] [address] 06/13/2025 11:05 AM CDT Office Visit [facility] Breast Surgery [place] C[place] [address] [place] [address] [place] [address] [facility] [address] [place] [address] documented as of this encounter Visit Diagnoses Not on filedocumented in this encounter Additional Health Concerns Infection Onset Date Last Indicated Resolved Time R/O COVID-19 12/28/2019 12/28/2019 12/30/2019 5:45 AM CDT COVID-19 12/28/2019 12/28/2019 01/27/2020 1:16 AM CDT documented as of this encounter Care Teams Teacher Of The Sight Impaired Relationship Specialty [place] [address] [place] [phone] PCP - General Internal Medicine 02/18/21 documented as of this encounter
--- OUTSIDE RECORDS SUMMARY | 2024-09-12 10:34 | XMS_ITS | Encounter Summary ---
Author Organization [facility] Address [address] 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 401.1-HYPERTENSION ESSENTIAL BENIGN The patient has lost [...] The patient is being seen by an automotive warranty administrator. CURRENT MEDICATION LIST: NEXIUM ORAL CAPSULE DELAYED [...] Has no significant smoking history. 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 Electronically Signed by: Yasemin Lacy MD on Saturday, September 16, 2006 documented in this encounter Plan of Treatment Upcoming Encounters Date Type Department Care Team (Late st Contact Info) Description 09/21/2024 11:30 AM CDT Office Visit [facility] Oncology and Hematology - Paras [address] [facility] [address] [place] [address] Nelson Cazares MD [address] [facility] [address] [place] [address] 10/04/2024 9:45 AM CDT Office Visit [facility] Orthopedic Surgery at the [facility] Medicine [address] [facility] [address] [place] [address] [place] [address] [place] [address] 12/08/2024 11:00 AM CDT Office Visit [facility] Heart and Vascular - [facility] [address] [place] [address] Nam Coto MD [address] [facility] [address] [place] [address] 06/13/2025 10:00 AM CDT Appointment [facility] [address] [address] [place] [address] [place] [address] [facility] [address] [place] [address] 06/13/2025 11:05 AM CDT Office Visit [facility] [address] [facility] [address] [place] [address] [place] [address] [facility] [address] [place] [address] documented as of this encounter Visit Diagnoses Not on filedocumented in this encounter Additional Health Concerns Infection Onset Date Last Indicated Resolved Time R/O COVID-19 12/28/2019 12/28/2019 12/30/2019 5:45 AM CDT COVID-19 12/28/2019 12/28/2019 01/27/2020 1:16 AM CDT documented as of this encounter Care Teams Accredited Pharmacy Technician Relationship Specialty [place] [address] [facility] [address] [place] [phone] PCP - General Internal Medicine 02/18/21 documented as of this encounter
--- OUTSIDE RECORDS SUMMARY | 2024-09-12 10:34 | XMS_ITS | Encounter Summary ---
Author Organization [facility] Address 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 Gender Identity Not on file Sexual Orientation Not on file documented as of this encounter Plan of Treatment Upcoming Encounters Date Type Department Care Team (Late st Contact Info) Description 09/21/2024 11:30 AM CDT Office Visit [facility] Oncology and Hematology - Paras [address] [facility] [address] [facility] [address] [place] [address] Nelson Cazares MD [address] [facility] [address] [place] [address] 10/04/2024 9:45 AM CDT Office Visit [facility] Orthopedic Surgery at the [facility] [address] [facility] [address] [place] [address] [place] [address] [place] [address] 12/08/2024 11:00 AM CDT Office Visit [facility] Heart and Vascular - [place] [address] [place] [address] Nam Coto MD [address] [facility] [address] [place] [address] 06/13/2025 10:00 AM CDT Appointment [facility] [place] [address] [place] [address] [place] [address] [facility] [address] [place] [address] 06/13/2025 11:05 AM CDT Office Visit [facility] Breast Surgery [place] Couch [address] [facility] [address] [place] [address] [place] [address] [facility] [address] [place] [address] documented as of this encounter Visit Diagnoses Diagnosis Unspecified sinusitis (chronic)- Primary documented in this encounter Additional Health Concerns Infection Onset Date Last Indicated Resolved Time R/O COVID-19 12/28/2019 12/28/2019 12/30/2019 5:45 AM CDT COVID-19 12/28/2019 12/28/2019 01/27/2020 1:16 AM CDT documented as of this encounter Care Teams Automation Specialist Relationship Specialty [place] [address] [place] [address] PCP - General Internal Medicine 02/18/21 documented as of this encounter
--- OUTSIDE RECORDS SUMMARY | 2024-09-12 10:34 | XMS_ITS | Encounter Summary ---
Author Organization [facility] Address 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 [address] [place] [address] 10/04/2024 9:45 AM CDT Office Visit [facility] Orthopedic Surgery at the [facility] Medicine [address] [facility] [address] [place] [address] [place] [address] [place] [address] 12/08/2024 11:00 AM CDT Office Visit [facility] Heart and Vascular - [place] [address] [place] [address] aNm Coto MD [address] [facility] [address] [place] [address] 06/13/2025 10:00 AM CDT [facility] [address] [facility] [place] [address] [place] [address] [place] [address] 06/13/2025 11:05 AM CDT Office Visit [facility] Breast Surgery [place] [address] [place] [address] [place] [address] [place] [address] documented as of this encounter Visit Diagnoses Diagnosis Benign neoplasm of colon- Primary documented in this encounter Additional Health Concerns Infection Onset Date Last Indicated Resolved Time R/O COVID-19 12/28/2019 12/28/2019 12/30/2019 5:45 AM CDT COVID-19 12/28/2019 12/28/2019 01/27/2020 1:16 AM CDT documented as of this encounter Care Teams Donor Recruitment Manager Relationship Specialty [place] [address] [place] [phone] PCP - General Internal Medicine 02/18/21 documented as of this encounter
--- OUTSIDE RECORDS SUMMARY | 2024-09-12 10:34 | XMS_ITS | Encounter Summary ---
Author Organization [facility] Address [address] 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 Gender Identity Not on file Sexual Orientation [...] Description 09/21/2024 11:30 AM CDT Office Visit [facility] Oncology and Hematology - Paras [address] [facility] [address] [place] [address] Nelson Cazares MD [address] [facility] [address] [place] [address] 10/04/2024 9:45 AM CDT Office Visit [facility] Orthopedic Surgery at the [facility] Medicine [address] [place] [address] [place] [address] [place] [address] 12/08/2024 11:00 AM CDT Office Visit [facility] Heart and Vascular - [facility] [address] [place] [address] Nam Coto MD [address] [facility] [address] [place] [address] 06/13/2025 10:00 AM CDT Appointment [facility] [place] [address] [place] [address] [place] [address] [place] [address] 06/13/2025 11:05 AM CDT Office Visit [facility] Breast Surgery Jazmin Couch [address] [place] [address] [place] [address] [facility] [address] [place] [address] documented as of this encounter Visit Diagnoses Not on filedocumented in this encounter Additional Health Concerns Infection Onset Date Last Indicated Resolved Time R/O COVID-19 12/28/2019 12/28/2019 12/30/2019 5:45 AM CDT COVID-19 12/28/2019 12/28/2019 01/27/2020 1:16 AM CDT documented as of this encounter Care Teams Parts Facilitator Relationship Specialty [place] [address] [facility] [address] [place] [phone] PCP - General Internal Medicine 02/18/21 documented as of this encounter
--- OUTSIDE RECORDS SUMMARY | 2024-09-12 10:34 | XMS_ITS | Encounter Summary ---
Author Organization [facility] Address 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 Gender Identity Not on file Sexual Orientation Not on file documented as of this encounter Plan of Treatment Upcoming Encounters Date Type Department Care Team (Late st Contact Info) Description 09/21/2024 11:30 AM CDT Office Visit [facility] Oncology and Hematology - Paras [address] [place] [address] Nelson Cazares MD [address] [facility] [address] [place] [address] 10/04/2024 9:45 AM CDT Office Visit [facility] Orthopedic Surgery at the [facility] Medicine [address] [facility] [address] [place] [address] [place] [address] [place] [address] 12/08/2024 11:00 AM CDT Office Visit [facility] Heart and Vascular - [place] [address] [place] [address] Nam Coto MD [address] [facility] [address] [place] [address] 06/13/2025 10:00 AM CDT Appointment [facility] [place] [address] [place] [address] [place] [address] [facility] [address] [place] [address] 06/13/2025 11:05 AM CDT Office Visit [facility] Breast Surgery [place] Couch [address] [facility] [address] [place] [address] [place] [address] [facility] [address] [place] [address] documented as of this encounter Visit Diagnoses Diagnosis Derangement of lateral meniscus, unspecified- Primary documented in this encounter Additional Health Concerns Infection Onset Date Last Indicated Resolved Time R/O COVID-19 12/28/2019 12/28/2019 12/30/2019 5:45 AM CDT COVID-19 12/28/2019 12/28/2019 01/27/2020 1:16 AM CDT documented as of this encounter Care Teams Senior Clinical Consultant Relationship Specialty [place] [address] [place] [phone] PCP - General Internal Medicine 02/18/21 documented as of this encounter
--- OUTSIDE RECORDS SUMMARY | 2024-09-12 10:34 | XMS_ITS | Encounter Summary ---
Author Organization [facility] Address 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 Gender Identity Not on file Sexual Orientation Not on file documented as of this encounter Plan of Treatment Upcoming Encounters Date Type Department Care Team (Late st Contact Info) Description 09/21/2024 11:30 AM CDT Office Visit [facility] Oncology and Hematology - Paras [address] [place] [address] Nelson Cazares MD [address] [facility] [address] [place] [address] 10/04/2024 9:45 AM CDT Office Visit [facility] Orthopedic Surgery at the [facility] [address] [facility] [address] [place] [address] [place] [address] [place] [address] 12/08/2024 11:00 AM CDT Office Visit [facility] Heart and Vascular - [place] [address] [place] [address] Nam Coto MD [address] [facility] [address] [place] [address] 06/13/2025 10:00 AM CDT Appointment [facility] [place] [address] [place] [address] [place] [address] [facility] [address] [place] [address] 06/13/2025 11:05 AM CDT Office Visit [facility] [place] [address] [place] [address] [place] [address] [facility] [address] [place] [address] documented as of this encounter Visit Diagnoses Diagnosis Reflux esophagitis- Primary documented in this encounter Additional Health Concerns Infection Onset Date Last Indicated Resolved Time R/O COVID-19 12/28/2019 12/28/2019 12/30/2019 5:45 AM CDT COVID-19 12/28/2019 12/28/2019 01/27/2020 1:16 AM CDT documented as of this encounter Care Teams Clothespin Drier Operator Relationship Specialty [place] [address] [facility] [address] [place] [address] PCP - General Internal Medicine 02/18/21 documented as of this encounter
--- OUTSIDE RECORDS SUMMARY | 2024-09-12 10:34 | XMS_ITS | Encounter Summary ---
Author Organization [facility] Address 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 Gender Identity Not on file Sexual Orientation Not on file documented as of this encounter Plan of Treatment Upcoming Encounters Date Type Department Care Team (Late Contact Info) Description 09/21/2024 11:30 AM CDT Office Visit [facility] Oncology and Hematology - Paras [address] [place] [address] Nelson Cazares MD [address] [facility] [address] [place] [address] 10/04/2024 9:45 AM CDT Office Visit [facility] Orthopedic Surgery at the [facility] [address] [facility] [address] [place] [address] [place] [address] [place] [address] 12/08/2024 11:00 AM CDT Office Visit [facility] Heart and Vascular - [place] [address] [place] [address] Nam Coto MD [address] [facility] [address] [place] [address] 06/13/2025 10:00 AM CDT [facility] [address] [place] [address] [place] [address] [facility] [address] [place] [address] 06/13/2025 11:05 AM CDT Office Visit [facility] Breast Surgery [place] [address] [place] [address] [place] [address] [facility] [address] [place] [address] documented as of this encounter Visit Diagnoses Not on filedocumented in this encounter Additional Health Concerns Infection Onset Date Last Indicated Resolved Time R/O COVID-19 12/28/2019 12/28/2019 12/30/2019 5:45 AM CDT COVID-19 12/28/2019 12/28/2019 01/27/2020 1:16 AM CDT documented as of this encounter Care Teams Quantitative Associate Relationship Specialty Start [place] [address] [place] [phone] PCP - General Internal Medicine 02/18/21 documented as of this encounter
--- OUTSIDE RECORDS SUMMARY | 2024-09-12 10:34 | XMS_ITS | Encounter Summary ---
Author Organization [facility] Address 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 Gender Identity Not on file Sexual Orientation Not on file documented as of this encounter Plan of Treatment Upcoming Encounters Date Type Department Care Team (Late st Contact Info) Description 09/21/2024 11:30 AM CDT Office Visit [facility] Oncology and Hematology - Paras [address] [facility] [address] [place] [address] Nelson Cazares MD [address] [facility] [address] [place] [address] 10/04/2024 9:45 AM CDT Office Visit [facility] Orthopedic Surgery at the [facility] Medicine [address] [facility] [address] [place] [address] [place] [address] [place] [address] 12/08/2024 11:00 AM CDT Office Visit [facility] Heart and Vascular - [place] [address] [place] [address] Nam Coto MD [address] [facility] [address] [place] [address] 06/13/2025 10:[address] [facility] [address] [place] [address] [place] [address] [facility] [address] [place] [address] 06/13/2025 11:05 AM CDT Office Visit [facility] [address] [facility] [address] [place] [address] [place] [address] [facility] [address] [place] [address] documented as of this encounter Visit Diagnoses Diagnosis Tear of lateral cartilage or meniscus of knee, current- Primary documented in this encounter Additional Health Concerns Infection Onset Date Last Indicated Resolved Time R/O COVID-19 12/28/2019 12/28/2019 12/30/2019 5:45 AM CDT COVID-19 12/28/2019 12/28/2019 01/27/2020 1:16 AM CDT documented as of this encounter Care Teams Irrigator Gravity Flow Relationship Specialty [place] [address] [facility] [address] [place] [phone] PCP - General Internal Medicine 02/18/21 documented as of this encounter
--- OUTSIDE RECORDS SUMMARY | 2024-09-12 10:34 | XMS_ITS | Encounter Summary ---
Author Organization [facility] Address 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 Gender Identity Not on file Sexual Orientation Not on file documented as of this encounter Plan of Treatment Upcoming Encounters Date Type Department Care Team (Late st Contact Info) Description 09/21/2024 11:30 AM CDT Office Visit [facility] Oncology and Hematology - Paras [address] [facility] [address] [place] [address] Nelson Cazares MD [address] [facility] [address] [place] [address] 10/04/2024 9:45 AM CDT Office Visit [facility] Orthopedic Surgery at the [facility] [address] [facility] [address] [place] [address] [place] [address] [place] [address] 12/08/2024 11:00 AM CDT Office Visit [facility] Heart and Vascular - [place] [address] [place] [address] Nam Coto MD [address] [facility] [address] [place] [address] 06/13/2025 10:00 AM CDT [facility] [address] [place] [address] [place] [address] [facility] [address] [place] [address] 06/13/2025 11:05 AM CDT Office Visit [facility] [place] [address] [place] [address] [place] [address] [facility] [address] [place] [address] documented as of this encounter Visit Diagnoses Diagnosis Chest pain, unspecified- Primary documented in this encounter Additional Health Concerns Infection Onset Date Last Indicated Resolved Time R/O COVID-19 12/28/2019 12/28/2019 12/30/2019 5:45 AM CDT COVID-19 12/28/2019 12/28/2019 01/27/2020 1:16 AM CDT documented as of this encounter Care Teams Hod Carrier Relationship Specialty [place] [address] [place] [address] PCP - General Internal Medicine 02/18/21 documented as of this encounter
--- OUTSIDE RECORDS SUMMARY | 2024-09-12 10:34 | XMS_ITS ---
Author Organization [facility] Address [address] [place] [address] Phone Care Team Providers Care Clinical Research Physician Name Role Phone Kerwin Quiroga MD Primary Care Provider +1- [phone] Active Problems Patient Care Coordination No te Formatting of this note migh t be different from the original. Sausage Canner - Dr. Jeb Ruiz ([facility]) Problem Noted Date Diagnosed Date Malignant neoplasm of upper- inner quadrant of right breast in female, estrogen receptor positive 10/21/2022 Overview (05/28/2023): Stage: Clinical T1N0; pT2N0 Date of diagnosis: 09/24/2022 Diagnosis: RIGHT 31 mm IDC, 0/2 LN ER(+) TN(+) Her 2(-) Surgeon: Nettie Surgery: 10/31/2022 right [...]
--- OUTSIDE RECORDS SUMMARY | 2024-09-12 10:34 | XMS_ITS | Encounter Summary ---
Author Organization [facility] Address 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 Gender Identity Not on file Sexual Orientation Not on file documented as of this encounter Plan of Treatment Upcoming Encounters Date Type Department Care Team (Late Contact Info) Description 09/21/2024 11:30 AM CDT Office Visit [facility] Oncology and Hematology - Paras [address] [place] [address] Nelson Cazares MD [address] [facility] [address] [place] [address] 10/04/2024 9:45 AM CDT Office Visit [facility] Orthopedic Surgery at the [facility] [address] [facility] [address] [place] [address] [place] [address] [place] [address] 12/08/2024 11:00 AM CDT Office Visit [facility] Heart and Vascular - [place] [address] [place] [address] Nam Coto MD [address] [facility] [address] [place] [address] 06/13/2025 10:00 AM CDT [facility] [address] [place] [address] [place] [address] [facility] [address] [place] [address] 06/13/2025 11:05 AM CDT Office Visit [facility] Breast Surgery [place] Couch [address] [place] [address] [place] [address] [facility] [address] [place] [address] documented as of this encounter Visit Diagnoses Not on filedocumented in this encounter Additional Health Concerns Infection Onset Date Last Indicated Resolved Time R/O COVID-19 12/28/2019 12/28/2019 12/30/2019 5:45 AM CDT COVID-19 12/28/2019 12/28/2019 01/27/2020 1:16 AM CDT documented as of this encounter Care Teams Dental Nurse Relationship Specialty [place] [address] [place] [phone] PCP - General Internal Medicine 02/18/21 documented as of this encounter
--- OUTSIDE RECORDS SUMMARY | 2024-09-12 10:34 | XMS_ITS | Encounter Summary ---
Author Organization [facility] Address 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 Gender Identity Not on file Sexual Orientation Not on file documented as of this encounter Plan of Treatment Upcoming Encounters Date Type Department Care Team (Late st Contact Info) Description 09/21/2024 11:30 AM CDT Office Visit [facility] Oncology and Hematology - Paras [address] [facility] [address] [place] [address] Nelson Cazares MD [address] [facility] [address] [place] [address] 10/04/2024 9:45 AM CDT Office Visit [facility] Orthopedic Surgery at the [facility] [address] [facility] [address] [place] [address] [place] [address] [place] [address] 12/08/2024 11:00 AM CDT Office Visit [facility] Heart and Vascular - [place] [address] [place] [address] Nam Coto MD [address] [facility] [address] [place] [address] 06/13/2025 10:00 AM CDT Appointment [facility] [address] [place] [address] [place] [address] [facility] [address] [place] [address] 06/13/2025 11:05 AM CDT Office Visit [facility] Breast Surgery Jazminannie Couch [address] [place] [address] [place] [address] [facility] [address] [place] [address] documented as of this encounter Visit Diagnoses Diagnosis Chondromalacia of patella- Primary documented in this encounter Additional Health Concerns Infection Onset Date Last Indicated Resolved Time R/O COVID-19 12/28/2019 12/28/2019 12/30/2019 5:45 AM CDT COVID-19 12/28/2019 12/28/2019 01/27/2020 1:16 AM CDT documented as of this encounter Care Teams Heater Engineer Helper Relationship Specialty [place] [address] [place] [address] PCP - General Internal Medicine 02/18/21 documented as of this encounter
--- OUTSIDE RECORDS SUMMARY | 2024-09-12 10:34 | XMS_ITS | Encounter Summary ---
Author Organization [facility] Address [address] [place] [address] Care Team Providers Care Nurseryman Assistant Name Role Phone Kerwin Quiroga MD Primary Care Provider +1- [phone] Encounter Details Date Type Department Care Team (Late st Contact Info) Description 05/03/2004 Outpatient Historical HIS COMMUNITY ROADWAY ENGINEER Mayte Walters, [address] [place] [address] Samantha Kwan MD [address] [address] DIABETES MELLITUS TYPE II-UNCOMPL (CMS/HCC) (Primary Dx) Social History Tobacco Use Types Packs/Day Years Used Date Smoking Tobacco: Never Assessed Comments Unknown Sex and Gender Information Value Date Recorded Sex Assigned at Not on file 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 Medicine [address] [facility] [place] [address] [place] [address] [place] [address] 12/08/2024 11:00 AM CDT Office Visit [facility] Heart and Vascular - [facility] [address] [place] [address] Nam Coto MD [address] [facility] [address] [place] [address] 06/13/2025 10:00 AM CDT Appointment [facility] [place] [address] [place] [address] [place] [address] [facility] [address] [place] [address] 06/13/2025 11:05 AM CDT Office Visit [facility] Breast Surgery [place] [address] [facility] [address] [place] [address] [place] [address] [facility] [address] [place] [address] documented as of this encounter Visit Diagnoses Diagnosis Type II or unspecified type diabetes mellitus without mention of complication, not stated as uncontrolled- Primary documented in this encounter Additional Health Concerns Infection Onset Date Last Indicated Resolved Time R/O COVID-19 12/28/2019 12/28/2019 12/30/2019 5:45 AM CDT COVID-19 12/28/2019 12/28/2019 01/27/2020 1:16 AM CDT documented as of this encounter Care Teams Nurseryman Assistant Relationship Specialty Start [place] [address] [facility] [address] [place] [address] PCP - General Internal Medicine 02/18/21 documented as of this encounter
--- OUTSIDE RECORDS SUMMARY | 2024-09-12 10:34 | XMS_ITS | Encounter Summary ---
Author Organization [facility] Address [address] [place] [address] Care Team Providers Care Adhesive Bonding Machine Operator Name Role Phone Kerwin Quiroga MD Primary Care Provider +1- [phone] Encounter Details Date Type Department Care Team (Latest Contact Info) Description 05/11/2000 Outpatient Historical HIS [facility] Jeremías Torres MD NO ADDRESS ON FILE Type II or unspecified type diabetes mellitus without mention of complication, not stated as uncontrolled (Primary Dx) Social History Tobacco Use Types Packs/Day Years Used Date Smoking Tobacco: Never Assessed Comments Unknown Sex and Gender Information Value Date Recorded Sex Assigned at Not on file 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 Oncology and Hematology - Paras [address] [facility] [address] [place] [address] Nelson Cazares MD [address] [facility] [address] [place] [address] 10/04/2024 9:45 AM CDT Office Visit [facility] Orthopedic Surgery at the [facility] [address] [facility] [address] [place] [address] [place] [address] [place] [address] 12/08/2024 11:00 AM CDT Office Visit [facility] Heart and Vascular - [place] [address] [place] [address] Nam Coto MD [address] [facility] [address] [place] [address] 06/13/2025 10:00 AM CDT [facility] [address] [place] [address] [place] [address] [facility] [address] [place] [address] 06/13/2025 11:05 AM CDT Office [facility] Breast Surgery [place] [address] [facility] [address] [place] [address] [place] [address] [facility] [address] [place] [address] documented as of this encounter Visit Diagnoses Diagnosis Type II or unspecified type diabetes mellitus without mention of complication, not stated as uncontrolled- Primary documented in this encounter Additional Health Concerns Infection Onset Date Last Indicated Resolved Time R/O COVID-19 12/28/2019 12/28/2019 12/30/2019 5:45 AM CDT COVID-19 12/28/2019 12/28/2019 01/27/2020 1:16 AM CDT documented as of this encounter Care Teams Adhesive Bonding Machine Operator Relationship Specialty [place] [address] [place] [address] PCP - General Internal Medicine 02/18/21 documented as of this encounter
--- OUTSIDE RECORDS SUMMARY | 2024-09-12 10:34 | XMS_ITS | Encounter Summary ---
Author Organization [facility] Address 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 Gender Identity Not on file Sexual Orientation Not on file documented as of this encounter Plan of Treatment Upcoming Encounters Date Type Department Care Team (Late Contact Info) Description 09/21/2024 11:30 AM CDT Office Visit [facility] Oncology and Hematology - [place]as [address] [facility] [address] [place] [address] Nelson Cazares MD [address] [facility] [address] [place] [address] 10/04/2024 9:45 AM CDT Office Visit [facility] Orthopedic Surgery at the [facility] [address] [facility] [address] [place] [address] [place] [address] [place] [address] 12/08/2024 11:00 AM CDT Office Visit [facility] Heart and Vascular - [place] [address] [place] [address] Nam Coto MD [address] [facility] [address] [place] [address] 06/13/2025 10:00 AM CDT [facility] [address] [place] [address] [place] [address] [facility] [address] [place] [address] 06/13/2025 11:05 AM CDT Office Visit [facility] Breast Surgery [place] Couch [address] [place] [address] [place] [address] [facility] [address] [place] [address] documented as of this encounter Visit Diagnoses Not on filedocumented in this encounter Additional Health Concerns Infection Onset Date Last Indicated Resolved Time R/O COVID-19 12/28/2019 12/28/2019 12/30/2019 5:45 AM CDT COVID-19 12/28/2019 12/28/2019 01/27/2020 1:16 AM CDT documented as of this encounter Care Teams Photography Professor Relationship Specialty [place] [address] [place] [phone] PCP - General Internal Medicine 02/18/21 documented as of this encounter
--- OUTSIDE RECORDS SUMMARY | 2024-09-12 10:34 | XMS_ITS | Encounter Summary ---
Author Organization [facility] Address [address] [place] [address] Care Team Providers Care Rate Clerk Passenger Name Role Phone Kerwin Quiroga MD Primary Care Provider +1- [phone] Encounter Details Date Type Department Care Team (Late Contact Info) Description 03/13/2006 Outpatient Historical HIS 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 Gender Identity Not on file Sexual Orientation Not on file documented as of this encounter Plan of Treatment Upcoming Encounters Date Type Department Care Team (Late Contact Info) Description 09/21/2024 11:30 AM CDT Office Visit [facility] Oncology and Hematology - [place]as [address] [facility] [facility] [address] [place] [address] Nelson Cazares MD [address] [facility] [address] [place] [address] 10/04/2024 9:45 AM CDT Office Visit [facility] Orthopedic Surgery at the [facility] [address] [facility] [address] [place] [address] [place] [address] [place] [address] 12/08/2024 11:00 AM CDT Office Visit [facility] Heart and Vascular - [place] [address] [place] [address] Nam Coto MD [address] [facility] [address] [place] [address] 06/13/2025 10:00 AM CDT [facility] [address] [place] [address] [place] [address] [facility] [address] [place] [address] 06/13/2025 11:05 AM CDT Office Visit [facility] Breast Surgery [place] Couch [address] [place] [address] [place] [address] [facility] [address] [place] [address] documented as of this encounter Visit Diagnoses Not on filedocumented in this encounter Additional Health Concerns Infection Onset Date Last Indicated Resolved Time R/O COVID-19 12/28/2019 12/28/2019 12/30/2019 5:45 AM CDT COVID-19 12/28/2019 12/28/2019 01/27/2020 1:16 AM CDT documented as of this encounter Care Teams Rate Clerk Passenger Relationship Specialty [place] [address] [place] [phone] PCP - General Internal Medicine 02/18/21 documented as of this encounter
--- OUTSIDE RECORDS SUMMARY | 2024-09-12 10:34 | XMS_ITS | Encounter Summary ---
Author Organization [facility] Address [address] [place] [address] Care Team Providers Care Seasoning Sprayer Name Role Phone Kerwin Quiroga MD Primary Care Provider +1- [phone] Encounter Details Date Type Department Care Team (Late Contact Info) Description 02/13/2005 Outpatient [address] 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 Gender Identity Not on file Sexual Orientation Not on file documented as of this encounter Plan of Treatment Upcoming Encounters Date Type Department Care Team (Late Contact Info) Description 09/21/2024 11:30 AM CDT Office Visit [facility] Oncology and Hematology - [place]as [address] [facility] [address] [place] [address] Nelson Cazares MD [address] [facility] [address] [place] [address] 10/04/2024 9:45 AM CDT Office Visit [facility] Orthopedic Surgery at the [facility] [address] [facility] [address] [place] [address] [place] [address] [place] [address] 12/08/2024 11:00 AM CDT Office Visit [facility] Heart and Vascular - [place] [address] [place] [address] Nam Coto MD [address] [facility] [address] [place] [address] 06/13/2025 10:00 AM CDT [facility] [address] [place] [address] [place] [address] [facility] [address] [place] [address] 06/13/2025 11:05 AM CDT Office Visit [facility] Breast Surgery [place] Couch [address] [place] [address] [place] [address] [facility] [address] [place] [address] documented as of this encounter Visit Diagnoses Not on filedocumented in this encounter Additional Health Concerns Infection Onset Date Last Indicated Resolved Time R/O COVID-19 12/28/2019 12/28/2019 12/30/2019 5:45 AM CDT COVID-19 12/28/2019 12/28/2019 01/27/2020 1:16 AM CDT documented as of this encounter Care Teams Seasoning Sprayer Relationship Specialty [place] [address] [place] [phone] PCP - General Internal Medicine 02/18/21 documented as of this encounter
--- OUTSIDE RECORDS SUMMARY | 2024-09-12 10:34 | XMS_ITS | Encounter Summary ---
Author Organization [facility] Address 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 Gender Identity Not on file Sexual Orientation Not on file documented as of this encounter Plan of Treatment Upcoming Encounters Date Type Department Care Team (Late st Contact Info) Description 09/21/2024 11:30 AM CDT Office Visit [facility] Oncology and Hematology - [place]as [address] [facility] [address] [place] [address] Nelson Cazares MD [address] [facility] [address] [place] [address] 10/04/2024 9:45 AM CDT Office Visit [facility] Orthopedic Surgery at the [facility] [address] [facility] [place] [address] [place] [address] [place] [address] 12/08/2024 11:00 AM CDT Office Visit [facility] Heart and Vascular - [place] [address] [place] [address] Nam Coto MD [address] [facility] [address] [place] [address] 06/13/2025 10:00 AM CDT [facility] [address] [facility] [place] [address] [place] [address] [facility] [address] [place] [address] 06/13/2025 11:05 AM CDT Office Visit [facility] Breast Surgery [place] [address] [facility] [address] [place] [address] [place] [address] [facility] [address] [place] [address] documented as of this encounter Visit Diagnoses Diagnosis Other general symptoms(780.99)- Primary Other general symptoms documented in this encounter Additional Health Concerns Infection Onset Date Last Indicated Resolved Time R/O COVID-19 12/28/2019 12/28/2019 12/30/2019 5:45 AM CDT COVID-19 12/28/2019 12/28/2019 01/27/2020 1:16 AM CDT documented as of this encounter Care Teams Dust Collector Treater Relationship Specialty [place] [address] [place] [address] PCP - General Internal Medicine 02/18/21 documented as of this encounter
--- OUTSIDE RECORDS SUMMARY | 2024-09-12 10:34 | XMS_ITS | Clinical Summary ---
Author Organization 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 400 Each 1 05/14/19 18 Active cholecalciferol, Vitamin D3, 125 mcg (5,000 unit) Capsule Take 50,000 Units by mouth. Active Insulin [place], Disposable, (BD Ultra-Fine Short Pen Needle) 31 gauge x 5/16 Needle USE FOUR TIMES DAILY BEFORE MEALS AND AT BEDTIME 400 Each 3 05/25/19 24 Active atenoloL (TENORMIN) 50 mg tablet TAKE 1 TABLET(50 MG) BY MOUTH DAILY 90 Tablet 3 01/11/20 24 Active famotidine (PEPCID) 40 mg tablet TAKE 1 TABLET(40 MG) BY MOUTH DAILY AT BEDTIME 90 Tablet 03/11/20 24 Active baclofen (LIORESAL) 10 mg tabletIndications :Back spasm Take 1 Tablet (10 mg) by mouth 3 times daily as needed for Pain. 60 Tablet 05/27/19 25 Active doxycycline hyclate (VIBRAMYCIN) 100 mg capsule 04/30/19 25 Active fluticasone propionate (FLONASE) 50 mcg/spray [place], Suspension nasal inhaler Administer 2 Sprays in each nostril. 04/25/19 25 Active predniSONE (DELTASONE) 10 mg tablet TAKE 1 TABLET BY MOUTH DAILY FOR 5 DAYS WITH FOOD EARLY IN DAY 04/30/19 25 Active anastrozole (ARIMIDEX) 1 mg tablet TAKE 1 TABLET(1 MG) BY MOUTH DAILY 90 Tablet 3 06/04/19 25 Active esomeprazole (NexIUM) 40 mg Capsule, Delayed Release(E.C.)Annabelle cations:Gastroeso phageal reflux disease without esophagitis TAKE 1 CAPSULE BY MOUTH EVERY DAY NEEDED 100 Capsule 06/07/19 25 Active montelukast (SINGULAIR) 10 mg tabletIndications :Mild intermittent asthma with acute exacerbation TAKE 1 TABLET(10 MG) BY MOUTH DAILY 90 Tablet 3 06/21/19 25 Active albuterol sulfate HFA 90 mcg/actuation aerosol inhalerIndication s:Mild intermittent asthma with acute exacerbation INHALE 2 PUFFS PO Q 4-6 H NEEDED FOR SHORTNESS OF BREATH OR WHEEZING 8.5 Gram 3 06/21/19 25 Active dulaglutide (Trulicity) 0.75 mg/0.5 mL injection ADMINISTER 0.75 MG UNDER THE SKIN EVERY 7 DAYS 6 mL 06/21/19 25 Active insulin glargine (Lantus Solostar U-100 Insulin) 100 unit/mL pen syringe 40 units SQ qhs. 45 mL 06/21/19 25 Active insulin lispro (HumaLOG,ADMELOG) 100 unit/mL pen syringe INJECT 7 UNITS UNDER THE SKIN WITH BREAKFAST, 15 UNITS WITH LUNCH, 15 UNITS WITH DINNER, PLUS SLIDING SCALE, MAX 100UNITS PER DAY 90 mL 1 06/21/19 25 Active metFORMIN (GLUCOPHAGE XR) 500 mg Extended Release 24 hour tablet TAKE 2 TABLETS(1000 MG) BY MOUTH TWICE DAILY WITH MEALS 360 Tablet 1 07/20/19 25 Active olmesartan (BENICAR) 20 mg tablet TAKE 1 TABLET BY MOUTH DAILY 100 Tablet 3 08/30/19 25 Active pantoprazole (PROTONIX) 40 mg Tablet, Delayed Release (E.C.)Indications :Gastroesophageal reflux disease without esophagitis TAKE 1 TABLET(40 MG) BY MOUTH DAILY 100 Tablet 3 08/30/19 25 Active PARoxetine HCl (PAXIL) 40 mg tablet TAKE 1 TABLET(40 MG) BY MOUTH DAILY 100 Tablet 3 08/30/19 25 Active simvastatin (ZOCOR) 40 mg tabletIndications :Mixed hyperlipidemia TAKE 1 TABLET(40 MG) BY MOUTH DAILY 100 Tablet 2 09/08/19 25 Active diclofenac sodium (VOLTAREN) 75 mg Tablet, Delayed Release (E.C.)Indications :Primary localized osteoarthritis of left knee Take 1 Tablet (75 mg) by mouth 2 times daily. 60 Tablet 09/09/19 25 2024 Active olmesartan (BENICAR) 20 mg tablet take 1 tablet by mouth daily 100 Tablet 3 09/01/19 24 2024 Discontinued simvastatin (ZOCOR) 40 mg tabletIndications :Mixed hyperlipidemia TAKE 1 TABLET(40 MG) BY MOUTH DAILY 100 Tablet 3 09/01/19 24 2024 Discontinued pantoprazole (PROTONIX) 40 mg Tablet, Delayed Release (E.C.)Indications :Gastroesophageal reflux disease without esophagitis Take 1 Tablet (40 mg) by mouth daily. 90 Tablet 3 09/30/19 24 2024 Discontinued PARoxetine HCl (PAXIL) 40 mg tablet TAKE 1 TABLET(40 MG) BY MOUTH DAILY 100 Tablet 1 03/07/20 24 2024 Discontinued Active Problems Patient Care Coordination No te Formatting of this note migh t be different from the original. Counselor At Law - Dr. Jeb Ruiz ([facility]) Problem Noted Date Diagnosed Date Malignant neoplasm of upper- inner quadrant of right breast in female, estrogen receptor positive 10/21/2022 Overview (05/28/2023): Stage: Clinical T1N0; pT2N0 Date of diagnosis: 09/24/2022 Diagnosis: RIGHT 31 mm IDC, 0/2 LN ER(+) TN(+) Her 2(-) Surgeon: [facility] Surgery: 10/31/2022 right lump/SLN Medical Oncologist: aSge Oncotype: 0 Chemotherapy: none Radiation Oncologist: Barb [...] Encounters Date Type Department Care Team Description 09/08/2024 1:30 PM CDT Office Visit [facility] Orthopedic Surgery at the [address] [place] [address] Allie Munoz PA Primary localized osteoarthritis of left knee (Primary Dx); Left knee pain, unspecified chronicity; History of total knee arthroplasty, right 09/08/2024 Chart Note [facility] Sports Medicine at the [address] [place] [address] Allie Munoz PA 09/07/2024 Refill [facility] Internal Medicine [place] [address] [place] [address] Kerwin Quiroga MD Mixed hyperlipidemia 08/28/2024 Refill [facility] [place] [address] [place] [address] Haily Boykin, SHIELA Gastroesophageal reflux disease without esophagitis 08/28/2024 Refill [facility] Medicine [place] [address] 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 07/28/2024 10:15 AM CDT Ancillary Procedure [facility] at the [facility] [address] [place] [address] Allie Munoz PA Primary localized osteoarthritis of left knee 07/19/2024 External Device Data STL ABSTRACTION Provider, Abstract 07/18/2024 Refill [facility] Endocrinology [address] [place] [address] Shanice Llamas MD 07/01/2024 External Device Data Initial Department [address] [place] [address] Dr KIM: [place] [address] Emiliano Pérez Md 06/21/2024 External Device Data STL ABSTRACTION Provider, Abstract 06/21/2024 Results Follow-Up [facility]ocrinology [address] [place] [address] Shanice Llamas MD HEMOGLOBIN A1C, COMPREHENSIVE METABOLIC PANEL 06/21/2024 Results Follow-Up [facility] Internal Medicine [place] [address] [facility] [address] [place] [address] Kerwin Quiroga MD LIPID PANEL, VITAMIN B12 LEVEL, TSH 06/20/2024 11:15 AM CDT Office Visit [facility] Endocrinology [address] [place] [address] Shanice Llamas MD Type 2 diabetes mellitus with hyperglycemia, with long-term current use of insulin ([facility]) (Primary Dx); Mixed hyperlipidemia; Obesity (BMI 30-39.9); snf (current) use of oral hypoglycemic drugs; Insulin dose changed ([facility]); Hypoglycemia due to type 2 diabetes mellitus (CMS/HCC) 06/20/2024 8:30 AM CDT Office Visit [facility] Internal Medicine [place] [address] [place] [address] Kerwin Quiroga MD Encounter for annual wellness visit (AWV) in Medicare patient (Primary Dx); Mild intermittent asthma with acute exacerbation; Malignant neoplasm of upper-inner quadrant of right breast in female, estrogen receptor positive ([facility]/HCC); Type 2 diabetes mellitus without complication, with long-term current use of insulin ([facility]/HCC); 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 ([facility]); Mixed hyperlipidemia; Gastroesophageal reflux disease without esophagitis; Anxiety state; Severe obesity (BMI 35.0-39.9) with comorbidity ([facility]); Screening for thyroid disorder; Encounter for vitamin deficiency screening from Last 3 Months Immunizations Immunization Administration Dates Next Due (ADACEL/BOOSTRIX)(10 YR UP) TDAP VACCINE, 0.5ML, IM 05/17/2010 (AREXVY)(60 YR UP) RSV, DOM MBINANT, PROTEIN SUBUNIT RSVPREF, ADJUVANT RECONSTITUTED, 0.5 ML, PF 01/28/2023 (PFIZER)(12 YR UP) COVID-19 VACCINE - EMERGENCY USE AUTHORIZATION, MRNA, [id number](PF) 30 MCG/0.3 ML IM SUSP 01/28/2021,06/26/2020,05/29/2020 (PNEUMOVAX [...] Medical History Relation Name Comments Hypertension Father drew lang Other Father drew lang glaucoma Breast Cancer Mother yuli lang Cancer Mother yuli lang Diabetes Mother yuli lang Emphysema Mother yuli lang Heart Attack Mother yuli lang Heart Disease Mother yuli lang Heart Failure Mother yuli lang Hypertension Mother yuli lang Colon Cancer Paternal Grandfather grandfather Asthma Neg Hx Bronchitis Neg Hx Lung Cancer Neg Hx Mesothelioma Neg Hx Relation Name Status Comments Father drew lang Alive Mother yuli lang Paternal Grandfather grandfather Social History Tobacco Use Types Packs/Day Years [...] file 05/28/2022 Feeling Safe Answer Date Recorded Do you worry about feeling s afe and happy with the people in your life? No 06/07/2024 Feeling Safe Answer Date Recorded Are you in a relationship wi th someone who hurts you emotionally and/or physically? 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99 09/08/2024 12:56 PM CDT Plan of Treatment Upcoming Encounters Date Type Department Care Team (Late st Contact Info) Description 09/21/2024 11:30 AM CDT Office Visit [facility] Oncology and Hematology - [place] [address] [place] [address] Nelson Cazares MD [address] [place] [address] 10/04/2024 9:45 AM CDT Office Visit [facility] Orth[facility] Surgery at the [facility] Medicine [address] [place] [address] [place] [address] [place] [address] 12/08/2024 11:00 AM CDT Office Visit [facility] Heart and Vascular - [facility] [address] [place] [address] Nam Coto MD [address] [facility] [address] [place] [address] 06/13/2025 10:00 AM CDT Appointment [facility] Jazimn [address] [place] [address] [place] [address] [place] [address] 06/13/2025 11:05 AM CDT Office Visit [facility] Breast Surgery [address] [address] [place] [address] [place] [address] [place] [address] Health Maintenance Due Date Last Done Comments FIT-DNA Q 3 years 1998 FIT/FOBT Q 1 year 1998 Flex Sig/CT Colonography Q 5 years 1998 DTAP/TDAP/TD VACCINES (2 - T d or Tdap) 05/17/2020 05/17/2010 PNEUMOCOCCAL VACCINE 50+ YEA RS (3 of 3 - PCV20 or PCV21) 01/21/2023 01/21/2018, 04/12/2012, 07/17/2011, Additional history exists DIABETES ANNUAL RETINAL EXAM 05/09/202312/2022, 01/02/2017, 01/02/2017, Additional history exists COVID-19 Vaccine (2023-04 5 season) 2023 01/28/2021, 06/26/2020, 05/29/2020 DIABETES HBA1C Q 6 MONTHS 12/21/20242024, 12/16/2023, 06/18/2023, Additional history exists BREAST CANCER SCREENING 06/07/2025 06/08/19, 05/28/2023, 09/04/2022, Additional history exists DIABETES ANNUAL FOOT EXAM 06/20/20252024, 12/16/2023, 05/25/2023, Additional history exists DIABETES MICROALBUMIN ANNUAL SCREEN 06/20/2025 06/20/2024, 05/30/2022, 09/13/2021, Additional history exists DIABETES: A1C (Auto Order) 06/20/202506/20, 12/16/2023, 06/18/2023, Additional history exists LDL CHOLESTEROL ANNUAL 06/20/2025 , 06/18/2023, 05/30/2022, Additional history exists Traditional Medicare (ACO) A nnual Wellness Visit 06/21/2025 06/20/2024, 06/18/2023, 05/28/2022, Additional history exists COLORECTAL SCREENING 12/12/2026 12/12/2021, 12/12/2021, 08/26/2018, Additional history exists Colorectal Cancer Screening 12/12/2026 OSTEOPOROSIS SCREENING 08/30/2028 08/31/2023 ZOSTER VACCINE Completed 06/24/2018, 05/29, 03/09/2018 RSV VACCINE (60+ or ) Completed 01/28/2023 INFLUENZA VACCINE Completed 05/23/2024, , 01/11/2022, Additional history exists Medical Devices Implanted Type Area Instructor [employer] Device Identifier Shelf Expiration Date Model / Serial / Lot Cement Mountain G-Hv 40g [id number] - [id number] Implanted:Qty: 1 on 03/01/2013 by Jeb Lamb MD at [facility] Cement Right: Knee [employer] 11/28/2015 [id number] / / [id number] Manufacturer'S Service Representative Clip Surgiclip Ii Srini 9.75in [id number] - [id number] Implanted:Qty: 1 on 10/31/2022 by Naa Sheffield MD at [facility] Jazmin [place] Clip Right: Axilla [employer] - COVID[employer]EN 04/29/2027 [id number] / / [id number] Patella 3peg Series A [id number] - [id number] Implanted:Qty: 1 on 03/01/2013 by Jeb Lamb MD at [facility] Knee Right: Knee [employer] 12/27/2017 [id number] / / [id number] Comp Fem Vngrd Cr Intrlk Rt 62.5mm [id number] - [id number] Implanted:Qty: 1 on 03/01/2013 by Jeb Lamb MD at [facility] Knee Right: Knee [employer] 07/27/2022 [id number] / / [id number] Comp Tib Cocr Finned 67mm [id number] - [id number] Implanted:Qty: 1 on 03/01/2013 by Jeb Lamb MD at [facility] Knee Right: Knee [employer] 01/27/2023 [id number] / / [id number] Brng Tib Vngrd Epoly Cr [id number] - [id number] Implanted:Qty: 1 on 03/01/2013 by Jeb Lamb MD at [facility] Knee [employer] 08/27/2017 [id number] / / [id number] Description:EPOLY BEARING IS NOT PART OF TOTAL KNEE CAP PRICING,WILL CHARGED SEPARATELY. Procedures Procedure Name Priority Date/Time Associated Diagnosis Comments XR KNEE 4+ VW LEFT Routine 07/28/2024 10 :24 AM CDT Primary localized osteoarthritis of left knee COMPREHENSIVE METABOLIC PANEL Routine 06/20/2024 11:15 AM CDT Type 2 diabetes mellitus with hyperglycemia, with long-term current use of insulin ([facility]) HEMOGLOBIN A1C Routine 06/20/2024 11:15 AM CDT Type 2 diabetes mellitus with hyperglycemia, with long-term current use of insulin (CMS/HCC) MICROALBUMIN/CREATINI NE RATIO, RANDOM UR Routine 06/20/2024 9:15 AM CDT TSH Routine 06/20/2024 9:15 AM CDT Screening for thyroid disorder VITAMIN B12 LEVEL Routine 06/20/2024 9:1 5 AM CDT Encounter for vitamin deficiency screening LIPID PANEL Routine 06/20/2024 9:15 AM CDT Mixed hyperlipidemia MAMMO 3D PING DIAGNOSTIC BILAT W OR WO CAD Routine 06/07/2024 12:12 PM CDT Malignant neoplasm of upper-inner quadrant of right breast in female, estrogen receptor positive (CMS/HCC) COLONOSCOPY REPORT 12/12/2021 10 :33 AM CDT DIABETES EYE EXAM Routine 01/02/2017 from Last 3 Months or Most Recently Relevant to Health Maintenance Results * XR KNEE 4+ VW LEFT (07/28/2024 10:24 AM CDT) Anatomical Region Laterality Modality Lower Extremity Computed Radiogr aphy 07/28/2024 10:2 4 AM CDT Impressions 07/28/2024 12:24 PM CDT IMPRESSION: Degenerative change most pronounced in the medial compartment with significant articular narrowing. INCIDENTAL FINDINGS: None. DICTATION LOCATION: [address] Narrative 07/28/2024 12:24 PM CDT Left knee INDICATION: Pain. Four views of left knee. Articular narrowing is most pronounced in the medial compartment. Mild spurring off of the patella. Minimal effusion. No fracture or malalignment. Procedure Note Agustin Hernandez MD - 07/28/2024 Left knee INDICATION: Pain. Four views of left knee. Articular narrowing is most pronounced in the medial compartment. Mild spurring off of the patella. Minimal effusion. No fracture or malalignment. IMPRESSION: Degenerative change most pronounced in the medial compartment with significant articular narrowing. INCIDENTAL FINDINGS: None. DICTATION LOCATION: Location [address] [place] [address] Allie [facility] ORDER TAMI Final Result * (ABNORMAL) HEMOGLOBIN A1C (06/20/2024 11:15 AM CDT) HEMOGLOBIN A1C 7.1(H) <5.7 % of total Hgb [facility] Comment: For someone without known diabetes, a [...] diabetes for children. ESTIMATED AVERAGE GLUCOSE (MG/DL) 157 mg/dL Democravise froy Hinojosa ESTIMATED AVERAGE GLUCOSE (MMOL/L) 8.7 mmol/L Democravise froy Hinojosa Comment: Test Performed at: [place] [address] [place] [address] Jj Alaniz Blood 06/20/2024 11:1 5 AM CDT 06/20/2024 11:16 AM CDT Shanice Llamas MD CHEMISTRY ORDERABLES Final Re sult [facility] [phone] [facility] [place] [address] [place] [address] * (ABNORMAL) COMPREHENSIVE METABOLIC PANEL (06/20/2024 11:15 AM CDT) GLUCOSE 139(H) 65 - 99 mg/dL [facility] Comment: Fasting reference interval For someone without known diabetes, a glucose value >125 mg/dL indicates that they may have diabetes and this should be confirmed with a follow-up test. BUN 12 7 - 25 mg/dL [facility] CREATININE 0.81 0.60 - 1.00 mg/dL [facility] GFR 78 > OR = 60 mL/min/1. 73m2 [facility] BUN/CREAT RATIO SEE NOTE: 6 - 22 (calc) [facility] Comment: Not Reported: BUN and Creatinine are within reference range. SODIUM 143 135 - 146 mmol/L [facility] POTASSIUM 4.3 3.5 - 5.3 mmol/L [facility] CHLORIDE 104 98 - 110 mmol/L [facility] CO2 29 20 - 32 mmol/L [facility] CALCIUM 9.3 8.6 - 10.4 mg/dL [facility] TOTAL PROTEIN 6.1 6.1 - 8.1 g/dL [facility] ALBUMIN 3.7 3.6 - 5.1 g/dL [facility] GLOBULIN 2.4 1.9 - 3.7 g/dL (calc) [facility] ALBUMIN/GLOBULIN RATIO 1.5 1.0 - 2.5 (calc) [facility] BILIRUBIN TOTAL 0.8 0.2 - 1.2 mg/dL [facility] ALKALINE PHOSPHATASE 70 37 - 153 U/L [facility] AST 18 10 - 35 U/L [facility] ALT 13 6 - 29 U/L [facility] Comment: Test Performed at: [employer] [address] Jj Alaniz MD Blood 06/20/2024 11:1 5 AM CDT 06/20/2024 11:16 AM CDT us Shanice Llamas MD CHEMISTRY ORDERABLES Final Re sult [facility] [phone] [facility] [address] * MICROALBUMIN/CREATININE RATIO, RANDOM UR (06/20/2024 9:15 AM CDT) Creatinine, Urine 247 20 - 275 mg/dL [facility] MICROALBUMIN, URINE 2.2 See Note: mg/dL [facility] Comment: Reference Range: Reference Range Not established MICROALBUMIN/CREAT RATIO, UR 9 <30 mg/g creat [facility] Comment: The ADA defines abnormalities in albumin excretion as follows: Albuminuria Category Result (mg/g creatinine) Normal to Mildly increased <30 Moderately increased 30-299 Severely increased > OR = 300 The ADA recommends that at least two of three specimens collected within a 3-6 month period be abnormal before considering a patient to be within a diagnostic category. Test Performed at: [facility] [address] [place] [address] ChelaApril Alaniz MD 06/20/2024 9:15 AM CDT 06/20/2024 9:17 AM CDT Kerwin Quiroga MD URINE ORDERABLES Final Res ult Performing Organization Address City/State/ZIP Co ok Phone Number [facility] [phone] [facility] [address] * TSH (06/20/2024 9:15 AM CDT) TSH 2.54 0.40 - 4.50 mIU/L [facility] Comment: Test Performed at: [facility] [place] [address] [place] [address] Jj Alaniz Blood 06/20/2024 9:15 AM CDT 06/20/2024 9:17 AM CDT us Kerwin Quiroga MD CHEMISTRY ORDERABLES Final Result Performing Organization Address City/State/ZIP [facility] Phone Number [facility] [phone] [place] [address] [place] [address] * VITAMIN B12 LEVEL (06/20/2024 9:15 AM CDT) VITAMIN B12 233 200 - 1100 pg/mL [facility] Comment: Please Note: Although the reference range for vitamin B12 is 200-1100 pg/mL, it has been reported that between 5 and 10% of patients with values between 200 and 400 pg/mL may experience neuropsychiatric and hematologic abnormalities due to occult B12 deficiency; less than 1% of patients with values above 400 pg/mL will have symptoms. Test Performed at: [facility] [address] [facility] [place] [address] Jj Alaniz MD Blood 06/20/2024 9:15 AM CDT 06/20/2024 9:17 AM CDT us Kerwin Quiroga MD CHEMISTRY ORDERABLES Final Result [facility] [phone] [facility] [place] [address] * (ABNORMAL) LIPID PANEL (06/20/2024 9:15 AM CDT) CHOLESTEROL 151 <200 mg/dL [facility] JamboRebecca Hinojosa HDL 46(L) > OR = 50 mg/dL [facility]ambo[facility]inoj[facility] TRIGLYCERIDE 104 <150 mg/dL [facility] JamboRebecca Hinojosa LDL CALCULATED 85 mg/dL (calc) [facility] Comment: Reference range: <100 Desirable range <100 mg/dL for primary prevention; <70 mg/dL for patients with CHD or diabetic patients with > or = 2 CHD risk factors. LDL-C is now calculated using the Alfonso calculation, which is a validated novel method providing better accuracy than the Friedewald equation in the estimation of LDL-C. Ruiz PATRICK et al. CESAR. 2013;310(19): 5051-1977 (http://education.[employer].Teleport/faq/MZO832) CHOL/HDL RATIO 3.3 <5.0 (calc) [facility] JamboKierra Hinojosa NON-HDL CHOLESTEROL 105 <130 mg/dL (calc) [facility]inojosa Comment: For patients with diabetes plus 1 major ASCVD risk factor, treating to a non-HDL-C goal of <100 mg/dL (LDL-C of <70 mg/dL) is considered a therapeutic option. Test Performed at: [facility] [address] [place] [address] Jj Rdz Vo Blood 06/20/2024 9:15 AM CDT 06/20/2024 9:17 AM CDT us Kerwin Quiroga MD CHEMISTRY ORDERABLES Final Result [facility] [phone] [place] [address] [place] [address] * MAMMO 3D PING DIAGNOSTIC BILAT W OR WO CAD (06/07/2024 12:12 PM CDT) Anatomical Region Laterality Modality Breast Bilateral Mammography 06/07/2024 12:1 2 PM CDT Addenda Addendum by Reji Valdes MD on 06/09/2024 7:24 AM CDT CORRECTED REPORT - EXAMINATION: MAMMO 3D PING DIAGNOSTIC BILAT W OR WO CAD DATE: 06/07/2024 12:12 PM HISTORY: 68-year-old woman with personal history of right breast cancer status post breast conservation therapy in 2022. COMPARISON: Comparison is made to previous examinations dating back to 02/19/2022. TECHNIQUE: Bilateral diagnostic mammogram was performed. Full field digital mammograms, and digital breast tomosynthesis with C-view performed. Examination is read in conjunction with computer aided detection. BREAST COMPOSITION: The breasts are heterogeneously dense, which may obscure small masses. FINDINGS: There are expected postoperative changes of breast conservation therapy in the central inner right breast at middle to posterior depths. Skin thickening has partially improved. Surgical clips partially seen in the right axilla. There is no new suspicious finding in either breast on mammogram. Computer aided detection was used in the interpretation of this examination. IMPRESSION: 1. No mammographic evidence of malignancy in either breast. Routine mammography is recommended in 1 year. OVERALL FINAL ASSESSMENT: BI-RADS CATEGORY 1: Negative. The patient was notified of the findings and recommendations at the time of the examination. DICTATION LOCATION: [facility] 06/07/2024 12:22 PM CDT IMPRESSION: 1. No mammographic evidence of malignancy in either breast. Routine mammography is recommended in 1 year. OVERALL FINAL ASSESSMENT: BI-RADS CATEGORY 3 - Probably benign. The patient was notified of the findings and recommendations at the time of the examination. DICTATION LOCATION: Brenna Cotton 06/07/2024 12:22 PM CDT EXAMINATION: MAMMO 3D PING DIAGNOSTIC BILAT W OR WO CAD DATE: 06/07/2024 12:12 PM HISTORY: 68-year-old woman with personal history of right breast cancer status post breast conservation therapy in 2022. COMPARISON: Comparison is made to previous examinations dating back to 02/19/2022. TECHNIQUE: Bilateral diagnostic mammogram was performed. Full field digital mammograms, and digital breast tomosynthesis with C-view performed. Examination is read in conjunction with computer aided detection. BREAST COMPOSITION: The breasts are heterogeneously dense, which may obscure small masses. FINDINGS: There are expected postoperative changes of breast conservation therapy in the central inner right breast at middle to posterior depths. Skin thickening has partially improved. Surgical clips partially seen in the right axilla. There is no new suspicious finding in either breast on mammogram. Computer aided detection was used in the interpretation of this examination. Procedure Note Reji Valdes MD - 06/07/2024 EXAMINATION: MAMMO 3D PING DIAGNOSTIC BILAT W OR WO CAD DATE: 06/07/2024 12:12 PM HISTORY: 68-year-old woman with personal history of right breast cancer status post breast conservation therapy in 2022. COMPARISON: Comparison is made to previous examinations dating back to 02/19/2022. TECHNIQUE: Bilateral diagnostic mammogram was performed. Full field digital mammograms, and digital breast tomosynthesis with C-view performed. Examination is read in conjunction with computer aided detection. BREAST COMPOSITION: The breasts are heterogeneously dense, which may obscure small masses. FINDINGS: There are expected postoperative changes of breast conservation therapy in the central inner right breast at middle to posterior depths. Skin thickening has partially improved. Surgical clips partially seen in the right axilla. There is no new suspicious finding in either breast on mammogram. Computer aided detection was used in the interpretation of this examination. IMPRESSION: 1. No mammographic evidence of malignancy in either breast. Routine mammography is recommended in 1 year. OVERALL FINAL ASSESSMENT: BI-RADS CATEGORY 3 - Probably benign. The patient was notified of the findings and recommendations at the time of the examination. DICTATION LOCATION: [facility] us Naa Sheffield MD MAMMO ORDERABLES Edited Result - Final * COLONOSCOPY REPORT (12/12/2021 10:33 AM CDT) Narrative Procedure Note Sourav Villeda MD - 12/12/2021 10:32 AM CDT [facility] Endoscopy Patient Name: Tita Izaguirre Procedure Date: [...] signed electronically. Number of Addenda: [address]; [place] [address] Sourav Villeda MD GI PROCEDURE ORDERABLES Final R esult * HM DIABETES EYE EXAM (01/02/2017) us Abstract Linc Provider HEALTH MAINTENANCE Edited Result - Final [facility] from Last 3 Months or Most Recently Relevant to Health Maintenance Insurance MEDICARE PART A AND B [facility] [id number] MEDICARE AARP RX [employer] RX Member Subscriber Plan / Payer ( fective 2022-Present) Name:Haily Izaguirreamanda Turner Relation to Subscriber:Self Name:Tita Izaguirre Payer ID:Not on file Group ID:[id number] Type:RX Commercial Address: [place] RX [employer] RX Member Subscriber Plan / Payer ( fective 2024-Present) Name:DmitriyTita Relation to Subscriber:Self Name:DmitriyHailyamanda Turner Payer ID:Not on file Group ID:[id number] Type:RX Medicare Part D Address: [place] MEDICARE PART A AND B [facility] [id number] Advance Directives For more information, please contact: [phone] * Full Code (Latest Code Status on [...] 7:36 AM 03/01/2013 11:42 AM Care Teams Regrinder Operator Relationship Specialty [place] [address] [facility] [address] [place] [phone] PCP - General Internal Medicine 02/18/21
--- OUTSIDE RECORDS SUMMARY | 2024-09-12 10:34 | XMS_ITS | Encounter Summary ---
Author Organization [facility] Address 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 [address] [place] [address] 10/04/2024 9:45 AM CDT Office Visit [facility] Orthopedic Surgery at the [facility] [address] [address] [place] [address] [place] [address] [place] [address] 12/08/2024 11:00 AM CDT Office Visit [facility] Heart and Vascular - [place] [address] [place] [address] Nam Coto MD [address] [facility] [address] [place] [address] 06/13/2025 10:00 AM CDT [facility] [address] [place] [address] [place] [address] [facility] [address] [place] [address] 06/13/2025 11:05 AM CDT Office Visit [facility] Breast Surgery Jazmin Couch [address] [place] [address] [place] [address] [facility] [address] [place] [address] documented as of this encounter Procedures Procedure [...] Jeremías Farias MD URINE ORDERABLES Final Result Performing Organization Address [facility] Phone Number INTERFACE SYSTEM Refer to clinic/hospital [...] ORDERABLES Final Re sult Performing Organization Address [facility] Phone Number INTERFACE SYSTEM Refer to clinic/hospital [...] ORDERABLES Final Re sult Performing Organization Address [facility] Co de Phone Number INTERFACE SYSTEM Refer [...] mmol/L INTERFACE SYSTEM 08/02/2004 5:37 PM CDT Jeremías Farias MD CHEMISTRY ORDERABLES Final Res ult Performing Organization Address [facility] Co de Phone Number INTERFACE SYSTEM Refer to clinic/hospital department documented in this encounter Visit Diagnoses Not on filedocumented in this encounter Additional Health Concerns Infection Onset Date Last Indicated Resolved Time R/O COVID-19 12/28/2019 12/28/2019 12/30/2019 5:45 AM CDT COVID-19 12/28/2019 12/28/2019 01/27/2020 1:16 AM CDT documented as of this encounter Care Teams Power Chisel Operator Relationship Specialty [place] [address] [facility] [address] [place] [address] PCP - General Internal Medicine 02/18/21 documented as of this encounter
--- OUTSIDE RECORDS SUMMARY | 2024-09-12 10:34 | XMS_ITS | Encounter Summary ---
Author Organization [facility] Address 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 Gender Identity Not on file Sexual Orientation Not on file documented as of this encounter Plan of Treatment Upcoming Encounters Date Type Department Care Team (Late st Contact Info) Description 09/21/2024 11:30 AM CDT Office Visit [facility] Oncology and Hematology - Paras [address] [place] [address] Nelson Cazares MD [address] [facility] [address] [place] [address] 10/04/2024 9:45 AM CDT Office Visit [facility] Orthopedic Surgery at the [facility] [address] [address] [place] [address] [place] [address] [place] [address] 12/08/2024 11:00 AM CDT Office Visit [facility] Heart and Vascular - [place] [address] [place] [address] Nam Coto MD [address] [facility] [address] [place] [address] 06/13/2025 10:00 AM CDT Appointment [facility] Jazmin Couch [address] [place] [address] [place] [address] [place] [address] 06/13/2025 11:05 AM CDT Office Visit [facility] Breast Surgery [place]az[place] Couch [address] [place] [address] [place] [address] [place] [address] documented as of this encounter Visit Diagnoses Diagnosis Essential hypertension, benign- Primary documented in this encounter Additional Health Concerns Infection Onset Date Last Indicated Resolved Time R/O COVID-19 12/28/2019 12/28/2019 12/30/2019 5:45 AM CDT COVID-19 12/28/2019 12/28/2019 01/27/2020 1:16 AM CDT documented as of this encounter Care Teams Business Analytics Manager Relationship Specialty [place] [address] [place] [address] PCP - General Internal Medicine 02/18/21 documented as of this encounter
--- OUTSIDE RECORDS SUMMARY | 2024-09-12 10:34 | XMS_ITS | Encounter Summary ---
Author Organization [facility] Address 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 Gender Identity Not on file Sexual Orientation Not on file documented as of this encounter Plan of Treatment Upcoming Encounters Date Type Department Care Team (Late st Contact Info) Description 09/21/2024 11:30 AM CDT Office Visit [facility] Oncology and Hematology - [place] [address] [place] [address] Nelson Cazares MD [address] [facility] [address] [place] [address] 10/04/2024 9:45 AM CDT Office Visit [facility] Orthopedic Surgery at the [facility] [address] [facility] [address] [place] [address] [place] [address] [place] [address] 12/08/2024 11:00 AM CDT Office Visit [facility] Heart and Vascular - [place] [address] [place] [address] Nam Coto MD [address] [facility] [address] [place] [address] 06/13/2025 10:00 AM CDT Appointment [facility] Jazmin Couch [address] [place] [address] [place] [address] [facility] [address] [place] [address] 06/13/2025 11:05 AM CDT Office Visit [facility] Breast Surgery [place] Couch [address] [place] [address] [place] [address] [facility] [address] [place] [address] documented as of this encounter Visit Diagnoses Diagnosis Headache(784.0)- Primary Headache documented in this encounter Additional Health Concerns Infection Onset Date Last Indicated Resolved Time R/O COVID-19 12/28/2019 12/28/2019 12/30/2019 5:45 AM CDT COVID-19 12/28/2019 12/28/2019 01/27/2020 1:16 AM CDT documented as of this encounter Care Teams Visual Inspector Relationship Specialty [place] [address] [place] [address] PCP - General Internal Medicine 02/18/21 documented as of this encounter
--- OUTSIDE RECORDS SUMMARY | 2024-09-12 10:34 | XMS_ITS | Encounter Summary ---
Author Organization [facility] Address 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 Gender Identity Not on file Sexual Orientation Not on file documented as of this encounter Plan of Treatment Upcoming Encounters Date Type Department Care Team (Late st Contact Info) Description 09/21/2024 11:30 AM CDT Office Visit [facility] Oncology and Hematology - [place] [address] [facility] [address] [place] [address] Nelson Cazares MD [address] [facility] [address] [place] [address] 10/04/2024 9:45 AM CDT Office Visit [facility] Orthopedic Surgery at the [facility] [address] [facility] [address] [place] [address] [place] [address] [place] [address] 12/08/2024 11:00 AM CDT Office Visit [facility] Heart and Vascular - [place] [address] [place] [address] Nam Coto MD [address] [facility] [address] [place] [address] 06/13/2025 10:00 AM CDT Appointment [facility] [address] [address] [place] [address] [place] [address] [facility] [address] [place] [address] 06/13/2025 11:05 AM CDT Office Visit [facility] Breast Surgery [place] [facility] [address] [place] [address] [place] [address] [facility] [address] [place] [address] documented as of this encounter Visit Diagnoses Diagnosis Unspecified sinusitis (chronic)- Primary documented in this encounter Additional Health Concerns Infection Onset Date Last Indicated Resolved Time R/O COVID-19 12/28/2019 12/28/2019 12/30/2019 5:4 5 AM CDT COVID-19 12/28/2019 12/28/2019 01/27/2020 1:16 AM CDT documented as of this encounter Care Teams Pillowcase Cleaner Relationship Specialty [place] [address] [facility] [address] [place] [phone] PCP - General Internal Medicine 02/18/21 documented as of this encounter
--- OUTSIDE RECORDS SUMMARY | 2024-09-12 10:34 | XMS_ITS | Encounter Summary ---
Author Organization [facility] Address [address] [place] [address] Care Team Providers Care Orthotic Assistant Name Role Phone Kerwin Quiroga MD Primary Care Provider +1- [phone] Encounter Details Date Type Department Care Team (Late st Contact Info) Description 09/16/2006 Outpatient Historical [facility] Internal Medicine [place] [address] [facility] [address] [place] [address] Saturnino ms, MD Yasemin Social History Tobacco Use Types Packs/Day Years Used Date Smoking Tobacco: Never Assessed Comments Unknown Sex and Gender Information Value Date Recorded Sex Assigned at Not on file 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 Gender Identity Not on file Sexual [...] 11:30 AM CDT Height 161.9 cm (5' 3.75) 09/16/2006 11:30 AM C DT Body Mass Index 34.08 09/16/2006 11:30 AM CDT documented in this encounter Plan of Treatment Upcoming Encounters Date Type Department Care Team (Late st Contact Info) Description 09/21/2024 11:30 AM CDT Office Visit [facility] Oncology and Hematology - Paras [address] [facility] [address] [place] [address] Nelson Cazares MD [address] [facility] [address] [place] [address] 10/04/2024 9:45 AM CDT Office Visit [facility] Orthopedic Surgery at the [facility] [address] [facility] [address] [place] [address] [place] [address] [place] [address] 12/08/2024 11:00 AM CDT Office Visit [facility] Heart and Vascular - [facility] [address] [place] [address] Nam Coto MD [address] [facility] [address] [place] [address] 06/13/2025 10:00 AM CDT Appointment [facility] [place] [address] [place] [address] [place] [address] [facility] [address] [place] [address] 06/13/2025 11:05 AM CDT Office Visit [facility] Breast Surgery [place] [facility] [address] [place] [address] [place] [address] [facility] [address] [place] [address] documented as of this encounter Visit Diagnoses Not on filedocumented in this encounter Additional Health Concerns Infection Onset Date Last Indicated Resolved Time R/O COVID-19 12/28/2019 12/28/2019 12/30/2019 5:45 AM CDT COVID-19 12/28/2019 12/28/2019 01/27/2020 1:16 AM CDT documented as of this encounter Care Teams Orthotic Assistant Relationship Specialty [place] [address] [facility] [address] [place] [phone] PCP - General Internal Medicine 02/18/21 documented as of this encounter
--- OUTSIDE RECORDS SUMMARY | 2024-09-12 10:34 | XMS_ITS | Encounter Summary ---
Author Organization [facility] Address 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 [address] [facility] [address] [place] [address] [place] [address] [place] [address] 12/08/2024 11:00 AM CDT Office Visit [facility] Heart and Vascular - [place] [address] [place] [address] Nam Coto MD [address] [facility] [address] [place] [address] 06/13/2025 10:00 AM CDT [facility] [address] [place] [address] [place] [address] [facility] [address] [place] [address] 06/13/2025 11:05 AM CDT Office Visit [facility] Breast Surgery [place] [address] [address] [facility] [address] [place] [address] [place] [address] [facility] [address] [place] [address] documented as of this encounter Visit Diagnoses Diagnosis Benign neoplasm of stomach- Primary Nausea with vomiting documented in this encounter Additional Health Concerns Infection Onset Date Last Indicated Resolved Time R/O COVID-19 12/28/2019 12/28/2019 12/30/2019 5:45 AM CDT COVID-19 12/28/2019 12/28/2019 01/27/2020 1:16 AM CDT documented as of this encounter Care Teams Mailer Apprentice Relationship Specialty Start [place] [address] [facility] [address] [place] [phone] PCP - General Internal Medicine 02/18/21 documented as of this encounter
--- OUTSIDE RECORDS SUMMARY | 2024-09-12 10:34 | XMS_ITS | Encounter Summary ---
Author Organization [facility] Address 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 Gender Identity Not on file Sexual Orientation Not on file documented as of this encounter Plan of Treatment Upcoming Encounters Date Type Department Care Team (Late Contact Info) Description 09/21/2024 11:30 AM CDT Office Visit [facility] Oncology and Hematology - Paras [address] [facility] [address] [place] [address] Nelson Cazares MD [address] [facility] [address] [place] [address] 10/04/2024 9:45 AM CDT Office Visit [facility] Orthopedic Surgery at the [facility] [address] [facility] [address] [place] [address] [place] [address] [place] [address] 12/08/2024 11:00 AM CDT Office Visit [facility] Heart and Vascular - [place] [address] [place] [address] Nam Coto MD [address] [facility] [address] [place] [address] 06/13/2025 10:00 AM CDT [facility] [place] [address] [place] [address] [place] [address] [facility] [address] [place] [address] 06/13/2025 11:05 AM CDT Office Visit [facility] Breast Surgery [place] Couch [address] [place] [address] [place] [address] [facility] [address] [place] [address] documented as of this encounter Visit Diagnoses Not on filedocumented in this encounter Additional Health Concerns Infection Onset Date Last Indicated Resolved Time R/O COVID-19 12/28/2019 12/28/2019 12/30/2019 5:45 AM CDT COVID-19 12/28/2019 12/28/2019 01/27/2020 1:16 AM CDT documented as of this encounter Care Teams Putty And Caulking Supervisor Relationship Specialty [place] [address] [place] [phone] PCP - General Internal Medicine 02/18/21 documented as of this encounter
--- OUTSIDE RECORDS SUMMARY | 2024-09-12 10:34 | XMS_ITS | Encounter Summary ---
Author Organization [facility] Address 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 Gender Identity Not on file Sexual Orientation Not on file documented as of this encounter Plan of Treatment Upcoming Encounters Date Type Department Care Team (Late st Contact Info) Description 09/21/2024 11:30 AM CDT Office Visit [facility] Oncology and Hematology - [place]as [address] [facility] [address] [place] [address] Nelson Cazares MD [address] [facility] [address] [place] [address] 10/04/2024 9:45 AM CDT Office Visit [facility] Orthopedic Surgery at the [facility] [address] [facility] [address] [place] [address] [place] [address] [place] [address] 12/08/2024 11:00 AM CDT Office Visit [facility] Heart and Vascular - [place] [address] [place] [address] Nam Coto MD [address] [facility] [address] [place] [address] 06/13/2025 10:00 AM CDT Appointment [facility] [address] [place] [address] [place] [address] [facility] [address] [place] [address] 06/13/2025 11:05 AM CDT Office Visit [facility] [address] [facility] [address] [place] [address] [place] [address] [facility] [address] [place] [address] documented as of this encounter Procedures Procedure Name Priority Date/Time Associated Diagnosis Comments POC GLUCOSE Routine 01/05/2006 8:44 AM CDT documented in this encounter Results * (ABNORMAL) POC GLUCOSE (01/05/2006 8:44 AM CDT) COMMENT, GLU POC Notified INTERFACE SYSTEM GLUCOSE POC 172(H) 65 - 109 mg/dL INTERFACE SYSTEM 01/05/2006 8:44 AM CDT us Boy Kaufman MD POINT OF CARE TESTING [...] documented as of this encounter Care Teams Android Programmer Relationship Specialty [place] [address] [facility] [address] [place] [phone] PCP - General Internal Medicine 02/18/21 documented as of this encounter
--- OUTSIDE RECORDS SUMMARY | 2024-09-12 10:34 | XMS_ITS | Encounter Summary ---
Author Organization [facility] Address 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 [address] [place] [address] Nelson Cazares MD [address] [facility] [address] [place] [address] 10/04/2024 9:45 AM CDT Office Visit [facility] Orthopedic Surgery at the [facility] [address] [facility] [address] [place] [address] [place] [address] [place] [address] 12/08/2024 11:00 AM CDT Office Visit [facility] Heart and Vascular - [place] [address] [place] [address] Nam Coto MD [address] [facility] [address] [place] [address] 06/13/2025 10:00 AM CDT [facility]ment [facility] [address] [place] [address] [place] [address] [facility] [address] [place] [address] 06/13/2025 11:05 AM CDT Office Visit [facility] Breast Surgery [place] Couch [address] [place] [address] [place] [address] [facility] [address] [place] [address] documented as of this encounter Visit Diagnoses Not on filedocumented in this encounter Additional Health Concerns Infection Onset Date Last Indicated Resolved Time R/O COVID-19 12/28/2019 12/28/2019 12/30/2019 5:45 AM CDT COVID-19 12/28/2019 12/28/2019 01/27/2020 1:16 AM CDT documented as of this encounter Care Teams Pot Holder Binder Relationship Specialty [place] [address] [place] [phone] PCP - General Internal Medicine 02/18/21 documented as of this encounter
--- OUTSIDE RECORDS SUMMARY | 2024-09-12 10:34 | XMS_ITS | Encounter Summary ---
Author Organization [facility] Address 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 Gender Identity Not on file Sexual Orientation Not on file documented as of this encounter Plan of Treatment Upcoming Encounters Date Type Department Care Team (Late Contact Info) Description 09/21/2024 11:30 AM CDT Office Visit [facility] Oncology and Hematology - Paras [address] [facility] [address] [place] [address] Nelson Cazares MD [address] [facility] [address] [place] [address] 10/04/2024 9:45 AM CDT Office Visit [facility] Orthopedic Surgery at the [facility] [address] [facility] [address] [place] [address] [place] [address] [place] [address] 12/08/2024 11:00 AM CDT Office Visit [facility] Heart and Vascular - [place] [address] [place] [address] Nam Coto MD [address] [facility] [address] [place] [address] 06/13/2025 10:[address] [facility] [address] [place] [address] [place] [address] [facility] [address] [place] [address] 06/13/2025 11:05 AM CDT Office Visit [facility] Breast Surgery [place] Couch [address] [place] [address] [place] [address] [facility] [address] [place] [address] documented as of this encounter Visit Diagnoses Not on filedocumented in this encounter Additional Health Concerns Infection Onset Date Last Indicated Resolved Time R/O COVID-19 12/28/2019 12/28/2019 12/30/2019 5:45 AM CDT COVID-19 12/28/2019 12/28/2019 01/27/2020 1:16 AM CDT documented as of this encounter Care Teams Enameler Relationship Specialty [place] [address] [place] [phone] PCP - General Internal Medicine 02/18/21 documented as of this encounter
--- OUTSIDE RECORDS SUMMARY | 2024-09-12 10:34 | XMS_ITS | Encounter Summary ---
Author Organization [facility] Address [address] [place] [address] Care Team Providers Care Embroidery Operator Name Role Phone Kerwin Quiroga MD Primary Care Provider +1- [phone] Encounter Details Date Type Department Care Team (Late st Contact Info) Description 09/23/2005 Outpatient Historical [facility] Alana Pérez MD [address] [address] Esophageal Reflux (Primary Dx) Social History Tobacco Use Types Packs/Day Years Used Date Smoking Tobacco: Never Assessed Comments Unknown Sex and Gender Information Value Date Recorded Sex Assigned at Not on file Legal Sex Female 4:29 AM CLINICAL BIOSTATISTICS DIRECTOR Gender Identity Not on file Sexual Orientation Not on file documented as of this encounter Plan of Treatment Upcoming Encounters Date Type Department Care Team (Late Contact Info) Description 09/21/2024 11:30 AM CDT [facility] On[facility] H[facility]ology - Paras [address] [facility] [address] [place] [address] Nelson Cazares MD [address] [facility] [address] [place] [address] 10/04/2024 9:45 AM CDT [facility] at the [facility] [address] [facility] [address] [place] [address] [place] [address] [place] [address] 12/08/2024 11:00 AM CDT Office Visit [facility] Heart and Vascular - [place] [address] [place] [address] Nam Coto MD [address] [facility] [address] [place] [address] 06/13/2025 10:00 AM CDT [facility] [address] [place] [address] [place] [address] [facility] [address] [place] [address] 06/13/2025 11:05 AM CDT Office Visit [facility] [address] [facility] [address] [place] [address] [place] [address] [facility] [address] [place] [address] documented as of this encounter Visit Diagnoses Diagnosis Esophageal reflux- Primary documented in this encounter Additional Health Concerns Infection Onset Date Last Indicated Resolved Time R/O COVID-19 12/28/2019 12/28/2019 12/30/2019 5:45 AM CDT COVID-19 12/28/2019 12/28/2019 01/27/2020 1:16 AM CDT documented as of this encounter Care Teams Embroidery Operator Relationship Specialty [place] [address] [facility] [address] [place] [address] PCP - General Internal Medicine 02/18/21 documented as of this encounter
--- OUTSIDE RECORDS SUMMARY | 2024-09-12 10:34 | XMS_ITS | Encounter Summary ---
Author Organization [facility] Address 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 Gender Identity Not on file Sexual Orientation Not on file documented as of this encounter Plan of Treatment Upcoming Encounters Date Type Department Care Team (Late st Contact Info) Description 09/21/2024 11:30 AM CDT Office Visit [facility] Oncology and Hematology - Paras [address] [facility] [address] [place] [address] Nelson Cazares MD [address] [facility] [address] [place] [address] 10/04/2024 9:45 AM CDT Office Visit [facility] Orthopedic Surgery at the [facility] Medicine [address] [facility] [address] [place] [address] [place] [address] [place] [address] 12/08/2024 11:00 AM CDT Office Visit [facility] Heart and Vascular - [place] [address] [place] [address] Nam Coto MD [address] [facility] [address] [place] [address] 06/13/2025 10:00 AM CDT Appointment [facility] [place] [address] [address] [place] [address] [place] [address] [facility] [address] [place] [address] 06/13/2025 11:05 AM CDT Office Visit [facility] Breast Surgery [place] Couch [address] [facility] [address] [place] [address] [place] [address] [facility] [address] [place] [address] documented as of this encounter Visit Diagnoses Diagnosis Unspecified sinusitis (chronic)- Primary documented in this encounter Additional Health Concerns Infection Onset Date Last Indicated Resolved Time R/O COVID-19 12/28/2019 12/28/2019 12/30/2019 5:45 AM CDT COVID-19 12/28/2019 12/28/2019 01/27/2020 1:16 AM CDT documented as of this encounter Care Teams Care Team Assistant Relationship Specialty [place] [address] [place] [address] PCP - General Internal Medicine 02/18/21 documented as of this encounter
--- OUTSIDE RECORDS SUMMARY | 2024-09-12 10:34 | XMS_ITS | Encounter Summary ---
Author Organization [facility] Address 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 Gender Identity Not on file Sexual Orientation Not on file documented as of this encounter Plan of Treatment Upcoming Encounters Date Type Department Care Team (Late Contact Info) Description 09/21/2024 11:30 AM CDT Office Visit [facility] Oncology and Hematology - Paras [address] [facility] [address] [place] [address] Nelson Cazares MD [address] [facility] [address] [place] [address] 10/04/2024 9:45 AM CDT Office Visit [facility] Orthopedic Surgery at the [facility] [address] [facility] [address] [place] [address] [place] [address] [place] [address] 12/08/2024 11:00 AM CDT Office Visit [facility] Heart and Vascular - [place] [address] [place] [address] Nam Coto MD [address] [facility] [address] [place] [address] 06/13/2025 10:00 AM CDT [facility] [address] [place] [address] [place] [address] [facility] [address] [place] [address] 06/13/2025 11:05 AM CDT Office Visit [facility] Breast Surgery Jazmin Couch [address] [place] [address] [place] [address] [facility] [address] [place] [address] documented as of this encounter Visit Diagnoses Not on filedocumented in this encounter Additional Health Concerns Infection Onset Date Last Indicated Resolved Time R/O COVID-19 12/28/2019 12/28/2019 12/30/2019 5:45 AM CDT COVID-19 12/28/2019 12/28/2019 01/27/2020 1:16 AM CDT documented as of this encounter Care Teams Cad Specialist Relationship Specialty [place] [address] [place] [phone] PCP - General Internal Medicine 02/18/21 documented as of this encounter
--- OUTSIDE RECORDS SUMMARY | 2024-09-12 10:34 | XMS_ITS | Encounter Summary ---
Author Organization [facility] Address [address] [place] [address] Care Team Providers Care Superintendent Pressure Name Role Phone Kerwin Quiroga MD Primary Care Provider +1- [phone] Encounter Details Date Type Department Care Team (Late Contact Info) Description 10/24/1999 Outpatient Historical HIS 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 Gender Identity Not on file Sexual Orientation Not on file documented as of this encounter Plan of Treatment Upcoming Encounters Date Type Department Care Team (Late Contact Info) Description 09/21/2024 11:30 AM CDT Office Visit [facility] Oncology and Hematology - Paras [address] [facility] [address] [place] [address] Nelson Cazares MD [address] [facility] [address] [place] [address] 10/04/2024 9:45 AM CDT Office Visit [facility] Orthopedic Surgery at the [facility] [address] [facility] [address] [place] [address] [place] [address] [place] [address] 12/08/2024 11:00 AM CDT Office Visit [facility] Heart and Vascular - [place] [address] [place] [address] Nam Coto MD [address] [facility] [address] [place] [address] 06/13/2025 10:00 AM CDT [facility] [address] [place] [address] [place] [address] [facility] [address] [place] [address] 06/13/2025 11:05 AM CDT Office Visit [facility] Breast Surgery Jazmin Couch [address] [place] [address] [place] [address] [facility] [address] [place] [address] documented as of this encounter Visit Diagnoses Not on filedocumented in this encounter Additional Health Concerns Infection Onset Date Last Indicated Resolved Time R/O COVID-19 12/28/2019 12/28/2019 12/30/2019 5:45 AM CDT COVID-19 12/28/2019 12/28/2019 01/27/2020 1:16 AM CDT documented as of this encounter Care Teams Superintendent Pressure Relationship Specialty Start [place] [address] [place] [phone] PCP - General Internal Medicine 02/18/21 documented as of this encounter
--- OUTSIDE RECORDS SUMMARY | 2024-09-12 10:34 | XMS_ITS | Referral Summary ---
Author Organization [facility] Address [address] [place] [address] Care Team Providers Care Service Greeter Name Role Phone Kerwin Quiroga MD Primary Care Provider +1 -[phone] Encounters Date Type Department Care Team Description 09/08/2024 Results Follow-Up [facility] [address] [place] [address] Tatiana Rowell NP Urine culture Urine, clean voided 09/07/2024 8:58 AM CDT - 09/07/2024 11:59 PM CDT [place] [address] Acute cystitis with hematuria Discharge Disposition: Discharge to home or self care 09/07/2024 9:00 AM CDT Office Visit [facility] [address] [place] [address] Mariela Cardona NP Acute cystitis with hematuria (Primary Dx); Non-recurrent acute serous otitis media of left ear from Last 3 Months Allergies Active Allergy Reactions Criticality Noted Date Comments Lisinopril Cough Low 05/17/2010 Penicillins Rash Medium 02/06/2011 Semaglutide Stomach upset Low 07/21/2018 Medications cyclobenzaprine (FLEXERIL) 5 mg tablet Take 1 tablet (5 mg total) by mouth 2 (two) times a day as needed for muscle spasms. 6 tablet 8 Active HYDROcodone-elba taminophen (NORCO) 5-325 mg per tabletIndicatio ns:Pain Take 2 tablets by mouth every 6 (six) hours as needed for pain. Do not exceed 8 tablets/day. 10 tablet 8 Active Additional Information Patient not taking.Reported on 09/07/2024 cholecalciferol (VITAMIN D-3) 5,000 unit capsule Take [...] mg total) by mouth daily 1 Active methylPREDNISol one (Medrol, Aaron,) 4 mg DosepackIndicat ions:Wasp sting, accidental or unintentional, initial encounter follow package directions 1 packet 3 Active Additional Information Patient not taking.Reported on 09/07/2024 anastrozole (ARIMIDEX) 1 mg tablet Take 1 [...] Active fluticasone propionate (FLONASE) 50 mcg/actuation nasal sprayIndication s:Post-nasal drip Administer 2 sprays into each nostril daily 1 each 5 Active insulin glargine (LANTUS) 100 unit/mL (3 mL) pen for injection 40 units SQ qhs. [address] (PROTONIX) 40 mg EC tablet Take 1 tablet (40 mg total) by mouth daily 5 Active PARoxetine (PAXIL) 40 mg tablet 5 Active cephalexin (KEFLEX) 500 mg capsule Take 1 capsule (500 mg total) by mouth 2 (two) times a day for 7 days 14 capsule 5 025 Active PARoxetine (PAXIL) 20 mg tablet Take 2 tablets (40 mg total) by mouth 025 Discontin ued(Other ) nitrofurantoin monohydrate (MACROBID) 100 mg capsuleIndicati ons:Acute cystitis with hematuria Take 1 capsule (100 mg total) by mouth 2 (two) times a day for 5 days 10 capsule 5 025 Discontin ued(Thera py completed ) Active Problems Problem Noted Date Diagnosed Date 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 11/12/2018 Grade 2 sprain of medial collateral [...] on file Legal Sex Female 1:48 AM 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 ASSISTANT Gender Identity Not on file Sexual Orientation Not on file Last Filed Vital Signs Vital Sign Reading Time Taken Comments Blood Pressure 118/54 09/07/2024 8:57 AM CDT Pulse 69 09/07/2024 8:57 AM CDT Temperature 36.2 C (97.2 F) 09/07/2024 8:57 AM CDT Respiratory Rate 18 09/07/2024 8:57 AM CDT Oxygen Saturation 95% 09/07/2024 8:57 AM CDT Inhaled Oxygen Concentration - - Weight 90.7 kg (200 lb) 09/07/2024 8:57 AM CDT Height 162.6 cm (5' 4) 09/07/2024 8:57 AM CDT Body Mass Index 34.33 09/07/2024 8:57 AM CDT Plan of Treatment Not on file Procedures Procedure Name Priority Date/Time Associated Diagnosis Comments POCT URINALYSIS DIPSTICK Routine 09/07/2024 9:13 AM CDT Acute cystitis with hematuria URINE CULTURE Routine 09/07/2024 8:58 AM CDT Acute cystitis with hematuria from Last 3 Months Results * (ABNORMAL) POCT urinalysis dipstick (09/07/2024 9:13 AM CDT) Color, Urine, POC Light Yellow Clarity, ur, POC Cloudy(A) Clear Glucose, ur, POC Negative Negative Bilirubin, ur, POC Negative Negative Ketones, ur, POC Trace(A) Negative Specific [place], POC 1.025 1.003 - 1.030 Blood, ur, POC Large(A) Negative pH, ur, POC 5.5 5.0 - 8.0 Protein, ur, POC Comment:>=300 mg/dL Urobilinogen, urine, POC 1.0 0.2 - 1.0 mg/dL Nitrite, ur, POC Negative Negative Leukocytes, ur, POC Large(A) Negative Lot Number [id number] Urine 09/07/2024 9:13 AM CDT Mariela Cardona NP POINT OF CARE TEST ORDERABLES Final Result * (ABNORMAL) Urine culture Urine, clean voided (09/07/2024 8:58 AM CDT) Pathologist [facility] Report Final Report: Greater than or equal to 100,000 colonies/mL of Klebsiella pneumoniae Plus growth of clinically insignificant bacterial nina. (.) Comment:Testing performed by : [facility], [address] [place]., [address] Organism KLEBSIELLA PNEUMONIAE [facility] Organism PLUS GROWTH OF CLINICALLY INSIGNIFICANT NINA. [facility] Urine, clean voided 09/07/2024 8:58 AM CDT 09/07/2024 5:32 PM CDT Narrative [facility] - 09/09/2024 12:24 PM CDT Testing performed by [facility] Microbiology Laboratory ([phone]) Organism Antibiotic Method Susceptibility Klebsiella pneumoniae Ampicillin INTERPRETATION Resistant Klebsiella pneumoniae Cefazolin INTERPRETATION Susceptible Klebsiella pneumoniae Nitrofurantoin INTERPRETATION Resistant Klebsiella pneumoniae Gentamicin INTERPRETATION Susceptible Klebsiella pneumoniae Trimethoprim with Sulfamethoxazole INTERPRETATION Susceptible Klebsiella pneumoniae Meropenem INTERPRETATION Susceptible Klebsiella pneumoniae Cefepime INTERPRETATION Susceptible Klebsiella pneumoniae Ciprofloxacin INTERPRETATION Susceptible Klebsiella pneumoniae Ceftazidime INTERPRETATION Susceptible Klebsiella pneumoniae Ceftriaxone INTERPRETATION Susceptible Klebsiella pneumoniae Piperacillin/Tazobactam INTERPRE TATION Susceptible Klebsiella pneumoniae Cephalexin INTERPRETATION Susceptible Klebsiella pneumoniae Cefuroxime-axetil INTERPRETATION Susceptible Klebsiella pneumoniae Cefdinir INTERPRETATION Susceptible us Mariela Cardona NP LAB MICROBIOLOGY - GENERAL ORD ERABLES Final Result [facility] [address] [place] [address] from Last 3 Months Insurance MEDICARE [facility] MEDICARE [facility] Care Teams Service Greeter Relationship Specialty [place] [address] [facility] [address] [place] [address] PCP - General Internal Medicine 01/18/21
--- OUTSIDE RECORDS SUMMARY | 2024-09-12 10:34 | XMS_ITS | Encounter Summary ---
Author Organization [facility] Address 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 Gender Identity Not on file Sexual Orientation Not on file documented as of this encounter Plan of Treatment Upcoming Encounters Date Type Department Care Team (Late st Contact Info) Description 09/21/2024 11:30 AM CDT Office Visit [facility]3] Oncology and Hematology - [place] [address] [place] [address] Nelson Cazares MD [address] [facility] [address] [place] [address] 10/04/2024 9:45 AM CDT Office Visit [facility]3] Orthopedic Surgery at the [facility] [address] [facility] [address] [place] [address] [place] [address] [place] [address] 12/08/2024 11:00 AM CDT Office Visit [facility]3] Heart and Vascular - [place] [address] [place] [address] Nam Coto MD [address] [facility] [address] [place] [address] 06/13/2025 10:00 AM CDT [facility] [address] [address] [place] [address] [place] [address] [facility] [address] [place] [address] 06/13/2025 11:05 AM CDT Office Visit [facility] Breast Surgery J[place]min [address] [place] [address] [place] [address] [facility] [address] [place] [address] documented as of this encounter Procedures Procedure Name Priority Date/Time Associated Diagnosis Comments CBC WITH DIFFERENTIAL Routine 02/13/2005 1:35 PM CIRCULAR SAW OPERATOR CBC WITH DIFFERENTIAL Routine 02/13/2005 1:35 PM CIRCULAR SAW OPERATOR URINALYSIS W/REFLEX MICROSCOPIC Routine 02/13/2005 1:35 PM CIRCULAR SAW OPERATOR SEDIMENTATION RATE Routine 02/13/2005 1: 35 PM CIRCULAR SAW OPERATOR COMPREHENSIVE METABOLIC PANEL Routine 02/13/2005 1:35 PM CIRCULAR SAW OPERATOR documented in this encounter Results * URINALYSIS (02/13/2005 1:35 PM CIRCULAR SAW OPERATOR) COLOR UA Yellow INTERFACE SYSTEM CLARITY UA [...] Negative Negative INTERFACE SYSTEM 02/13/2005 1:35 PM CIRCULAR SAW OPERATOR Jeremías Farias MD URINE ORDERABLES Final Result Performing Organization Address [facility] Phone Number INTERFACE SYSTEM Refer to clinic/hospital department * (ABNORMAL) CBC WITH DIFFERENTIAL (02/13/2005 1:35 PM CIRCULAR SAW OPERATOR) NEUTROPHILS 67 45 - 70 % INTERFAC [...] 0.20 K/uL INTERFACE SYSTEM 02/13/2005 1:35 PM CIRCULAR SAW OPERATOR Jeremías Farias MD HEMATOLOGY ORDERABLES Final Re sult Performing Organization Address [facility] de Phone Number INTERFACE SYSTEM Refer to clinic/hospital department * (ABNORMAL) CBC WITH DIFFERENTIAL (02/13/2005 1:35 PM CIRCULAR SAW OPERATOR) WBC 10.9(H) 4.0 - 9.8 K/uL INTERFACE [...] 12.4 fL INTERFACE SYSTEM 02/13/2005 1:35 PM CIRCULAR SAW OPERATOR us Jeremías Farias MD HEMATOLOGY ORDERABLES Final Re sult Performing Organization Address [facility] Phone Number INTERFACE SYSTEM Refer to clinic/hospital department * SEDIMENTATION RATE (02/13/2005 1:35 PM CIRCULAR SAW OPERATOR) ESR (SEDIMENTATION RATE) 10 0 - 30 mm/hr INTERFACE SYSTEM 02/13/2005 1:35 PM CIRCULAR SAW OPERATOR us Jeremías Farias MD HEMATOLOGY ORDERABLES Final Re sult Performing Organization Address [facility] Phone Number INTERFACE SYSTEM Refer to clinic/hospital department * (ABNORMAL) COMPREHENSIVE METABOLIC PANEL (02/13/2005 1:35 PM CIRCULAR SAW OPERATOR) GLUCOSE 144(H) 65 - 109 mg/dL INTERFACE [...] 30 mmol/L INTERFACE SYSTEM 02/13/2005 1:35 PM CIRCULAR SAW OPERATOR us Jeremías Farias MD CHEMISTRY ORDERABLES Final Res ult INTERFACE SYSTEM Refer to clinic/hospital department documented in this encounter Visit Diagnoses Not on filedocumented in this encounter Additional Health Concerns Infection Onset Date Last Indicated Resolved Time R/O COVID-19 12/28/2019 12/28/2019 12/30/2019 5:45 AM CDT COVID-19 12/28/2019 12/28/2019 01/27/2020 1:16 AM CDT documented as of this encounter Care Teams Cardiac Sonographer Relationship Specialty [place] [address] [facility] [address] [place] [address] PCP - General Internal Medicine 02/18/21 documented as of this encounter
--- OUTSIDE RECORDS SUMMARY | 2024-09-12 10:34 | XMS_ITS | Clinical Summary ---
Author Organization [facility] Address [address] [place] [address] Care Team Providers Care Mental Health Therapist Name Role Phone Kerwin Quiroga MD Primary Care Provider +1 [phone] Allergies Active Allergy Reactions Criticality Noted Date [...] Department Care Team Description 09/08/2024 Results Follow-Up [facility] [place] [address] [place] [address] Tatiana Rowell, LISA Urine culture Urine, clean voided 09/07/2024 9:00 AM CDT Office Visit [facility] [place] [address] [place] [address] Mariela Cardona NP Acute cystitis with hematuria (Primary Dx); Non-recurrent acute serous otitis media of left ear 09/07/2024 8:58 AM CDT - 09/07/2024 11:59 PM CDT Hospital Encounter [address] [address] Acute cystitis with hematuria Discharge Disposition: Discharge [...] on file 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 Gender Identity Not on file Sexual Orientation [...] 09/07/2024 8:57 AM CDT Plan of Treatment Health Maintenance Due Date Last Done Comments Albumin Creatinine Ratio, Urine 1955 Colon Cancer Screening-Colonoscopy 1955 Depression Screening 1955 Fall Risk Assessment 1955 Hepatitis C Screening 1955 Osteoporosis Screening-Bone [...] 01/04/2021, 06/26/2020, Additional history exists Influenza Vaccine (Season Ended) 2024 01/01/2021, 12/28/2020, 12/23/2018, Additional history exists Hemoglobin A1C 12/21/2024 06/20/2024, 11/28, 06/18/2023, Additional history exists Zoster Vaccine Completed 06/24/2018, [...] Negative Ketones, ur, POC Trace(A) Negative Specific [place], POC 1.025 1.003 - 1.030 Blood, ur, POC Large(A) Negative pH, ur, POC 5.5 5.0 - 8.0 Protein, ur, POC Comment:>=300 mg/dL Urobilinogen, urine, POC 1.0 0.2 - 1.0 mg/dL Nitrite, ur, POC Negative Negative Leukocytes, ur, POC Large(A) Negative Lot Number [id number] Urine 09/07/2024 9:13 AM CDT Mariela Cardona NP POINT OF CARE TEST ORDERABLES Final Result * (ABNORMAL) Urine culture Urine, clean voided (09/07/2024 8:58 AM CDT) Report Final Report: Greater than or equal to 100,000 colonies/mL of Klebsiella pneumoniae Plus growth of clinically insignificant bacterial nina. (.) Comment:Testing performed by : [facility], [address] [place]., [address] Organism KLEBSIELLA PNEUMONIAE [facility] Organism PLUS GROWTH OF CLINICALLY INSIGNIFICANT NINA. [facility] Urine, clean voided 09/07/2024 8:58 AM CDT 09/07/2024 5:32 PM CDT Narrative [facility] - 09/09/2024 12:24 PM CDT Testing performed by [facility] ([phone]) Organism Antibiotic Method Susceptibility Klebsiella pneumoniae Ampicillin [...] INTERPRETATION Susceptible Klebsiella pneumoniae Cefdinir INTERPRETATION Susceptible Mariela Cardona NP LAB MICROBIOLOGY - GENERAL ORD ERABLES Final Result [facility] [place] [address] [place] [address] from Last 3 Months Insurance MEDICARE [facility] MEDICARE [facility] Care Teams Mental Health Therapist Relationship Specialty [place] [address] [address] PCP - General Internal Medicine 01/18/21
--- OUTSIDE RECORDS SUMMARY | 2024-09-12 10:34 | XMS_ITS | Encounter Summary ---
Author Organization [facility] Address 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 Gender Identity Not on file Sexual Orientation Not on file documented as of this encounter Plan of Treatment Upcoming Encounters Date Type Department Care Team (Late st Contact Info) Description 09/21/2024 11:30 AM CDT Office Visit [facility] Oncology and Hematology - [place] [address] [facility] [address] [place] [address] Nelson Cazares MD [address] [facility] [address] [place] [address] 10/04/2024 9:45 AM CDT Office Visit [facility] Orthopedic Surgery at the [facility] [address] [facility] [address] [place] [address] [place] [address] [place] [address] 12/08/2024 11:00 AM CDT Office Visit [facility] Heart and Vascular - [place] [address] [place] [address] Nam Coto MD [address] [facility] [address] [place] [address] 06/13/2025 10:00 AM CDT Appointment [facility] [address] [facility] [place] [address] [place] [address] [facility] [address] [place] [address] 06/13/2025 11:05 AM CDT Office [facility] [address] [facility] [address] [place] [address] [place] [address] [facility] [address] [place] [address] documented as of this encounter Visit Diagnoses Diagnosis Type II or unspecified type diabetes mellitus without mention of complication, not stated as uncontrolled- Primary documented in this encounter Additional Health Concerns Infection Onset Date Last Indicated Resolved Time R/O COVID-19 12/28/2019 12/28/2019 12/30/2019 5:45 AM CDT COVID-19 12/28/2019 12/28/2019 01/27/2020 1:16 AM CDT documented as of this encounter Care Teams Home Maker Relationship Specialty [place] [address] [facility] [address] [place] [address] PCP - General Internal Medicine 02/18/21 documented as of this encounter
--- OUTSIDE RECORDS SUMMARY | 2024-09-12 10:34 | XMS_ITS | Encounter Summary ---
Author Organization [facility] Address 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 Gender Identity Not on file Sexual Orientation Not on file documented as of this encounter Plan of Treatment Upcoming Encounters Date Type Department Care Team (Late st Contact Info) Description 09/21/2024 11:30 AM CDT Office Visit [facility] Oncology and Hematology - [place] [address] [facility] [address] [place] [address] Nelson Cazares MD [address] [facility] [address] [place] [address] 10/04/2024 9:45 AM CDT Office Visit [facility] Orthopedic Surgery at the [facility] [address] [facility] [address] [place] [address] [place] [address] [place] [address] 12/08/2024 11:00 AM CDT Office Visit [facility] Heart and Vascular - [place] [address] [place] [address] Nam Coto MD [address] [facility] [address] [place] [address] 06/13/2025 10:00 AM CDT Appointment [facility] [address] [place] [address] [place] [address] [facility] [address] [place] [address] 06/13/2025 11:05 AM CDT Office Visit [facility] Breast Surgery Jazmin [address] [place] [address] [place] [address] [facility] [address] [place] [address] documented as of this encounter Visit Diagnoses Diagnosis Cough- Primary documented in this encounter Additional Health Concerns Infection Onset Date Last Indicated Resolved Time R/O COVID-19 12/28/2019 12/28/2019 12/30/2019 5:45 AM CDT COVID-19 12/28/2019 12/28/2019 01/27/2020 1:16 AM CDT documented as of this encounter Care Teams Parks And Recreation Manager Relationship Specialty [place] [address] [place] [phone] PCP - General Internal Medicine 02/18/21 documented as of this encounter
--- OUTSIDE RECORDS SUMMARY | 2024-09-12 10:34 | XMS_ITS | Encounter Summary ---
Author Organization [facility] Address 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 Gender Identity Not on file Sexual Orientation Not on file documented as of this encounter Plan of Treatment Upcoming Encounters Date Type Department Care Team (Late st Contact Info) Description 09/21/2024 11:30 AM CDT Office Visit [facility] Oncology and Hematology - [place] [address] [facility] [address] [place] [address] Nelson Cazares MD [address] [facility] [address] [place] [address] 10/04/2024 9:45 AM CDT Office Visit [facility] Orthopedic Surgery at the [facility] Medicine [address] [facility] [address] [place] [address] [place] [address] [place] [address] 12/08/2024 11:00 AM CDT Office Visit [facility] Heart and Vascular - [place] [address] [place] [address] Nam Coto MD [address] [facility] [address] [place] [address] 06/13/2025 10:00 AM CDT Appointment [facility] [address] [place] [address] [place] [address] [facility] [address] [place] [address] 06/13/2025 11:05 AM CDT [facility] [address] [facility] [address] [place] [address] [place] [address] [facility] [address] [place] [address] documented as of this encounter Visit Diagnoses Diagnosis Esophagitis, unspecified- Primary documented in this encounter Additional Health Concerns Infection Onset Date Last Indicated Resolved Time R/O COVID-19 12/28/2019 12/28/2019 12/30/2019 5:45 AM CDT COVID-19 12/28/2019 12/28/2019 01/27/2020 1:16 AM CDT documented as of this encounter Care Teams Toll Testboard Worker Relationship Specialty [place] [address] [place] [phone] PCP - General Internal Medicine 02/18/21 documented as of this encounter
--- OUTSIDE RECORDS SUMMARY | 2024-09-12 10:34 | XMS_ITS | Encounter Summary ---
Author Organization [facility] Address 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 Oncology and Hematology - Paras [address] [facility] [place] [address] Nelson Cazares MD [address] [facility] [address] [place] [address] 10/04/2024 9:45 AM CDT Office Visit [facility] Orthopedic Surgery at the [facility] Medicine [address] [facility] [address] [place] [address] [place] [address] [place] [address] 12/08/2024 11:00 AM CDT Office Visit [facility] Heart and Vascular - [place] [address] [place] [address] Nam Coto MD [address] [facility] [address] [place] [address] 06/13/2025 10:00 AM CDT Appointment [facility] Jazmin Couch [address] [place] [address] [place] [address] [facility] [address] [place] [address] 06/13/2025 11:05 AM CDT Office Visit [facility] Breast Surgery Jazmin Couch [address] [place] [address] [place] [address] [place] [address] documented as of this encounter Visit Diagnoses Diagnosis Essential hypertension, benign- Primary documented in this encounter Additional Health Concerns Infection Onset Date Last Indicated Resolved Time R/O COVID-19 12/28/2019 12/28/2019 12/30/2019 5:45 AM CDT COVID-19 12/28/2019 12/28/2019 01/27/2020 1:16 AM CDT documented as of this encounter Care Teams Retort Press Operator Relationship Specialty [place] [address] [place] [address] PCP - General Internal Medicine 02/18/21 documented as of this encounter
--- OUTSIDE RECORDS SUMMARY | 2024-09-12 10:34 | XMS_ITS | Encounter Summary ---
Author Organization [facility] Address 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 Gender Identity Not on file Sexual Orientation Not on file documented as of this encounter Plan of Treatment Upcoming Encounters Date Type Department Care Team (Late Contact Info) Description 09/21/2024 11:30 AM CDT Office Visit [facility] Oncology and Hematology - Paras [address] [facility] [address] [place] [address] Nelson Cazares MD [address] [facility] [address] [place] [address] 10/04/2024 9:45 AM CDT Office Visit [facility] Orthopedic Surgery at the [facility] [address] [facility] [address] [place] [address] [place] [address] [place] [address] 12/08/2024 11:00 AM CDT Office Visit [facility] Heart and Vascular - [place] [address] [place] [address] Nam Coto MD [address] [facility] [address] [place] [address] 06/13/2025 10:00 AM CDT [facility] [address] [place] [address] [place] [address] [facility] [address] [place] [address] 06/13/2025 11:05 AM CDT Office Visit [facility] Breast Surgery Jazmin Couch [address] [place] [address] [place] [address] [facility] [address] [place] [address] documented as of this encounter Visit Diagnoses Not on filedocumented in this encounter Additional Health Concerns Infection Onset Date Last Indicated Resolved Time R/O COVID-19 12/28/2019 12/28/2019 12/30/2019 5:45 AM CDT COVID-19 12/28/2019 12/28/2019 01/27/2020 1:16 AM CDT documented as of this encounter Care Teams Neurology Epilepsy Physician Relationship Specialty [place] [address] [place] [phone] PCP - General Internal Medicine 02/18/21 documented as of this encounter
--- OUTSIDE RECORDS SUMMARY | 2024-09-12 10:34 | XMS_ITS | Encounter Summary ---
Author Organization [facility] Address 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 [address] [place] [address] Nelson Cazares MD [address] [facility] [address] [place] [address] 10/04/2024 9:45 AM CDT Office Visit [facility] Orthopedic [facility] at the [facility] Medicine [address] [facility] [address] [place] [address] [place] [address] [place] [address] 12/08/2024 11:00 AM CDT Office Visit [facility] Heart and Vascular - [place] [address] [place] [address] Nam Coto MD [address] [facility] [address] [place] [address] 06/13/2025 10:00 AM CDT Appointment [facility] Jazmin Couch [address] [facility] [place] [address] [place] [address] [facility] [address] [place] [address] 06/13/2025 11:05 AM CDT Office Visit [facility] Breast Surgery Jazmin Couch [address] [place] [address] [place] [address] [place] [address] documented as of this encounter Visit Diagnoses Diagnosis Essential hypertension, benign- Primary documented in this encounter Additional Health Concerns Infection Onset Date Last Indicated Resolved Time R/O COVID-19 12/28/2019 12/28/2019 12/30/2019 5:45 AM CDT COVID-19 12/28/2019 12/28/2019 01/27/2020 1:16 AM CDT documented as of this encounter Care Teams Architectural Engineering Teacher Relationship Specialty [place] [address] [place] [address] PCP - General Internal Medicine 02/18/21 documented as of this encounter
--- OUTSIDE RECORDS SUMMARY | 2024-09-12 10:34 | XMS_ITS | Encounter Summary ---
Author Organization [facility] Address 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 Gender Identity Not on file Sexual Orientation Not on file documented as of this encounter Plan of Treatment Upcoming Encounters Date Type Department Care Team (Late Contact Info) Description 09/21/2024 11:30 AM CDT Office Visit [facility] Oncology and Hematology - Paras [address] [facility] [address] [place] [address] Nelson Cazares MD [address] [facility] [address] [place] [address] 10/04/2024 9:45 AM CDT Office Visit [facility] Orthopedic Surgery at the [facility] [address] [facility] [address] [place] [address] [place] [address] [place] [address] 12/08/2024 11:00 AM CDT Office Visit [facility] Heart and Vascular - [place] [address] [place] [address] Nam Coto MD [address] [facility] [address] [place] [address] 06/13/2025 10:00 AM CDT [facility] [address] [place] [address] [place] [address] [facility] [address] [place] [address] 06/13/2025 11:05 AM CDT Office Visit [facility] Breast Surgery Jazmin Couch [address] [place] [address] [place] [address] [facility] [address] [place] [address] documented as of this encounter Visit Diagnoses Not on filedocumented in this encounter Additional Health Concerns Infection Onset Date Last Indicated Resolved Time R/O COVID-19 12/28/2019 12/28/2019 12/30/2019 5:45 AM CDT COVID-19 12/28/2019 12/28/2019 01/27/2020 1:16 AM CDT documented as of this encounter Care Teams Scrap Materials Buyer Relationship Specialty [place] [address] [place] [phone] PCP - General Internal Medicine 02/18/21 documented as of this encounter
--- OUTSIDE RECORDS SUMMARY | 2024-09-12 10:35 | XMS_ITS | Encounter Summary ---
Author Organization [facility] Address 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 [address] [facility] [address] [place] [address] [place] [address] [place] [address] 12/08/2024 11:00 AM CDT Office Visit [facility] Heart and Vascular - [place] [address] [place] [address] Nam Coto MD [address] [facility] [address] [place] [address] 06/13/2025 10:00 AM CDT [facility] [address] [place] [address] [place] [address] [facility] [address] [place] [address] 06/13/2025 11:05 AM CDT Office Visit [facility] Breast Surgery Jazmin Couch [address] [place] [address] [place] [address] [facility] [address] [place] [address] documented as of this encounter Visit Diagnoses Not on filedocumented in this encounter Additional Health Concerns Infection Onset Date Last Indicated Resolved Time R/O COVID-19 12/28/2019 12/28/2019 12/30/2019 5:45 AM CDT COVID-19 12/28/2019 12/28/2019 01/27/2020 1:16 AM CDT documented as of this encounter Care Teams Pediatric Critical Care Nurse Relationship Specialty [place] [address] [place] [phone] PCP - General Internal Medicine 02/18/21 documented as of this encounter
--- OUTSIDE RECORDS SUMMARY | 2024-09-12 10:35 | XMS_ITS | Encounter Summary ---
Author Organization [facility] Address 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 [address] [place] [address] Nelson Cazares MD [address] [facility] [address] [place] [address] 10/04/2024 9:45 AM CDT Office Visit [facility] Orthopedic Surgery at the [facility] Medicine [address] [facility] [address] [place] [address] [place] [address] [place] [address] 12/08/2024 11:00 AM CDT Office Visit [facility] Heart and Vascular - [place] [address] [place] [address] Nam Coto MD [address] [facility] [address] [place] [address] 06/13/2025 10:00 AM CDT Appointment [facility] Jazmin Couch [address] [place] [address] [place] [address] [facility] [address] [place] [address] 06/13/2025 11:05 AM CDT Office Visit [facility] Breast Surgery Jazmin Couch [address] [place] [address] [place] [address] [place] [address] documented as of this encounter Visit Diagnoses Diagnosis Essential hypertension, benign- Primary documented in this encounter Additional Health Concerns Infection Onset Date Last Indicated Resolved Time R/O COVID-19 12/28/2019 12/28/2019 12/30/2019 5:45 AM CDT COVID-19 12/28/2019 12/28/2019 01/27/2020 1:16 AM CDT documented as of this encounter Care Teams Solar Mechanical Engineer Relationship Specialty [place] [address] [place] [address] PCP - General Internal Medicine 02/18/21 documented as of this encounter
--- OUTSIDE RECORDS SUMMARY | 2024-09-12 10:35 | XMS_ITS | Encounter Summary ---
Author Organization [facility] Address [address] [place] [address] Care Team Providers Care Electronic Intelligence Officer Name Role Phone Kerwin Quiroga MD Primary Care Provider +1- [phone] Encounter Details Date Type Department Care Team (Latest Contact Info) Description 05/11/2001 Outpatient Historical HIS 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 Sex Female 4:29 AM DIRECTOR CARD Gender Identity Not on file Sexual Orientation Not on file documented as of this encounter Plan of Treatment Upcoming Encounters Date Type Department Care Team (Late st Contact Info) Description 09/21/2024 11:30 AM CDT Office Visit [facility] Oncology and Hematology - Paras [address] [facility] [address] [place] [address] Nelson Cazares MD [address] [facility] [address] [place] [address] 10/04/2024 9:45 AM CDT Office Visit [facility] Orthopedic Surgery at the [facility] [address] [facility] [address] [place] [address] [place] [address] [place] [address] 12/08/2024 11:00 AM CDT Office Visit [facility] Heart and Vascular - [place] [address] [place] [address] Nam Coto MD [address] [facility] [address] [place] [address] 06/13/2025 10:[address] [facility] Jazmin Couch [address] [place] [address] [place] [address] [place] [address] 06/13/2025 11:05 AM CDT Office Visit [facility] Breast Surgery Jazmin Couch [address] [place] [address] [place] [address] [place] [address] documented as of this encounter Visit Diagnoses Diagnosis Essential hypertension, benign- Primary documented in this encounter Additional Health Concerns Infection Onset Date Last Indicated Resolved Time R/O COVID-19 12/28/2019 12/28/2019 12/30/2019 5:45 AM CDT COVID-19 12/28/2019 12/28/2019 01/27/2020 1:16 AM CDT documented as of this encounter Care Teams Electronic Intelligence Officer Relationship Specialty [place] [address] [place] [address] PCP - General Internal Medicine 02/18/21 documented as of this encounter
--- OUTSIDE RECORDS SUMMARY | 2024-09-12 10:35 | XMS_ITS | Encounter Summary ---
Author Organization [facility] Address [address] [place] [address] Care Team Providers Care Leasing Agent Name Role Phone Kerwin Quirgoa MD Primary Care Provider +1- [phone] Encounter Details Date Type Department Care Team (Latest Contact Info) Description 12/30/2000 Outpatient Historical [facility] Jeremías Torres MD NO ADDRESS ON FILE Essential hypertension, benign (Primary Dx) Social History Tobacco Use Types Packs/Day Years Used Date Smoking Tobacco: Never Assessed Comments Unknown Sex and Gender Information Value Date Recorded Sex Assigned at Not on file Legal Sex Female 4:29 AM DIRECTOR RADIO Gender Identity Not on file Sexual Orientation Not on file documented as of this encounter Plan of Treatment Upcoming Encounters Date Type Department Care Team (Late st Contact Info) Description 09/21/2024 11:30 AM CDT Office Visit [facility] Oncology and Hematology - Paras [address] [facility] [address] [place] [address] Nelson Cazares MD [address] [facility] [address] [place] [address] 10/04/2024 9:45 AM CDT Office Visit [facility] Orthopedic Surgery at the [facility] Medicine [address] [facility] [address] [place] [address] [place] [address] [place] [address] 12/08/2024 11:00 AM CDT Office Visit [facility] Heart and Vascular - [place] [address] [place] [address] Nam Coto MD [address] [facility] [address] [place] [address] 06/13/2025 10:00 AM CDT Appointment [facility] Jazmin Couch [address] [place] [address] [place] [address] [facility] [address] [place] [address] 06/13/2025 11:05 AM CDT Office Visit [facility] Breast Surgery Jazmin Couch [address] [place] [address] [place] [address] [place] [address] documented as of this encounter Visit Diagnoses Diagnosis Essential hypertension, benign- Primary documented in this encounter Additional Health Concerns Infection Onset Date Last Indicated Resolved Time R/O COVID-19 12/28/2019 12/28/2019 12/30/2019 5:45 AM CDT COVID-19 12/28/2019 12/28/2019 01/27/2020 1:16 AM CDT documented as of this encounter Care Teams Leasing Agent Relationship Specialty [place] [address] [place] [address] PCP - General Internal Medicine 02/18/21 documented as of this encounter
--- OUTSIDE RECORDS SUMMARY | 2024-09-12 10:35 | XMS_ITS | Encounter Summary ---
Author Organization [facility] Address 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 Gender Identity Not on file Sexual Orientation Not on file documented as of this encounter Plan of Treatment Upcoming Encounters Date Type Department Care Team (Late Contact Info) Description 09/21/2024 11:30 AM CDT Office Visit [facility] Oncology and Hematology - Paras [address] [place] [address] Nelson Cazares MD [address] [facility] [address] [place] [address] 10/04/2024 9:45 AM CDT Office Visit [facility] Orthopedic Surgery at the [facility] [address] [facility] [address] [place] [address] [place] [address] [place] [address] 12/08/2024 11:00 AM CDT Office Visit [facility] Heart and Vascular - [place] [address] [place] [address] Nam Coto MD [address] [facility] [address] [place] [address] 06/13/2025 10:00 AM CDT [facility] [address] [place] [address] [place] [address] [facility] [address] [place] [address] 06/13/2025 11:05 AM CDT Office Visit [facility] Breast Surgery Jaz[place] Couch [address] [place] [address] [place] [address] [facility] [address] [place] [address] documented as of this encounter Visit Diagnoses Not on filedocumented in this encounter Additional Health Concerns Infection Onset Date Last Indicated Resolved Time R/O COVID-19 12/28/2019 12/28/2019 12/30/2019 5:45 AM CDT COVID-19 12/28/2019 12/28/2019 01/27/2020 1:16 AM CDT documented as of this encounter Care Teams Fabricator Artificial Breast Relationship Specialty [place] [address] [place] [phone] PCP - General Internal Medicine 02/18/21 documented as of this encounter
--- OUTSIDE RECORDS SUMMARY | 2024-09-12 10:35 | XMS_ITS | Encounter Summary ---
Author Organization [facility] Address [address] [place] [address] Care Team Providers Care Strap Machine Operator Automatic Name Role Phone Kerwin Quiroga MD Primary Care Provider +1- [phone] Encounter Details Date Type Department Care Team (Late Contact Info) Description 05/11/2001 Outpatient Historical HIS G 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 Gender Identity Not on file Sexual Orientation Not on file documented as of this encounter Plan of Treatment Upcoming Encounters Date Type Department Care Team (Late Contact Info) Description 09/21/2024 11:30 AM CDT Office Visit [facility] Oncology and Hematology - Paras [address] [place] [address] Nelson Cazares MD [address] [facility] [address] [place] [address] 10/04/2024 9:45 AM CDT Office Visit [facility] Orthopedic Surgery at the [facility] [address] [facility] [address] [place] [address] [place] [address] [place] [address] 12/08/2024 11:00 AM CDT Office Visit [facility] Heart and Vascular - [place] [address] [place] [address] Nam Coto MD [address] [facility] [facility] [address] [place] [address] 06/13/2025 10:00 AM CDT [facility] [address] [place] [address] [place] [address] [facility] [address] [place] [address] 06/13/2025 11:05 AM CDT Office Visit [facility] Breast Surgery [place] Couch [address] [place] [address] [place] [address] [facility] [address] [place] [address] documented as of this encounter Visit Diagnoses Not on filedocumented in this encounter Additional Health Concerns Infection Onset Date Last Indicated Resolved Time R/O COVID-19 12/28/2019 12/28/2019 12/30/2019 5:45 AM CDT COVID-19 12/28/2019 12/28/2019 01/27/2020 1:16 AM CDT documented as of this encounter Care Teams Strap Machine Operator Automatic Relationship Specialty [place] [address] [place] [phone] PCP - General Internal Medicine 02/18/21 documented as of this encounter
--- OUTSIDE RECORDS SUMMARY | 2024-09-12 10:35 | XMS_ITS | Encounter Summary ---
Author Organization [facility] Address 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 [address] [place] [address] Nelson Cazares MD [address] [facility] [address] [place] [address] 10/04/2024 9:45 AM CDT Office Visit [facility] Orthopedic Surgery at the [facility] [address] [facility] [address] [place] [address] [place] [address] [place] [address] 12/08/2024 11:00 AM CDT Office Visit [facility] Heart and Vascular - [place] [address] [place] [address] Nam Coto MD [address] [facility] [address] [place] [address] 06/13/2025 10:00 AM CDT [facility] [address] [place] [address] [place] [address] [facility] [address] [place] [address] 06/13/2025 11:05 AM CDT Office Visit [facility] Breast Surgery [place] Couch [address] [place] [address] [place] [address] [facility] [address] [place] [address] documented as of this encounter Visit Diagnoses Not on filedocumented in this encounter Additional Health Concerns Infection Onset Date Last Indicated Resolved Time R/O COVID-19 12/28/2019 12/28/2019 12/30/2019 5:45 AM CDT COVID-19 12/28/2019 12/28/2019 01/27/2020 1:16 AM CDT documented as of this encounter Care Teams Coremaker Machine Relationship Specialty [place] [address] [place] [phone] PCP - General Internal Medicine 02/18/21 documented as of this encounter
--- OUTSIDE RECORDS SUMMARY | 2024-09-12 10:35 | XMS_ITS | Encounter Summary ---
Author Organization [facility] Address 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 Gender Identity Not on file Sexual Orientation Not on file documented as of this encounter Plan of Treatment Upcoming Encounters Date Type Department Care Team (Late st Contact Info) Description 09/21/2024 11:30 AM CDT Office Visit [facility] Oncology and Hematology - Paras [address] [facility] [address] [facility] [address] [place] [address] Nelson Cazares MD [address] [facility] [address] [place] [address] 10/04/2024 9:45 AM CDT Office Visit [facility] Orthopedic Surgery at the [facility] [address] [facility] [address] [place] [address] [place] [address] [place] [address] 12/08/2024 11:00 AM CDT Office Visit [facility] Heart and Vascular - [place] [address] [place] [address] Nam Coto MD [address] [facility] [address] [place] [address] 06/13/2025 10:00 AM CDT [facility] [address] [place] [address] [place] [address] [facility] [address] [place] [address] 06/13/2025 11:05 AM CDT Office Visit [facility] Breast Surgery Jaz[place] Couch [address] [place] [address] [place] [address] [facility] [address] [place] [address] documented as of this encounter Visit Diagnoses Not on filedocumented in this encounter Additional Health Concerns Infection Onset Date Last Indicated Resolved Time R/O COVID-19 12/28/2019 12/28/2019 12/30/2019 5:45 AM CDT COVID-19 12/28/2019 12/28/2019 01/27/2020 1:16 AM CDT documented as of this encounter Care Teams Siderographist Relationship Specialty [place] [address] [facility] [address] [place] [phone] PCP - General Internal Medicine 02/18/21 documented as of this encounter
--- OUTSIDE RECORDS SUMMARY | 2024-09-12 10:35 | XMS_ITS | Encounter Summary ---
Author Organization [facility] Address [address] [place] [address] Care Team Providers Care Sueding And Buffing Machine Operator Name Role Phone Kerwin Quiroga MD Primary Care Provider +1- [phone] Encounter Details Date Type Department Care Team (Late Contact Info) Description 03/08/2002 Outpatient Historical HIS [facility] Jeremías Farias MD NO ADDRESS ON FILE Social History Tobacco Use Types Packs/Day Years Used Date Smoking Tobacco: Never Assessed Comments Unknown Sex and Gender Information Value Date Recorded Sex Assigned at Not on file Legal Sex Female 4:29 AM SUBEDITOR Gender Identity Not on file Sexual Orientation Not on file documented as of this encounter Plan of Treatment Upcoming Encounters Date Type Department Care Team (Late Contact Info) Description 09/21/2024 11:30 AM CDT Office Visit [facility] Oncology and Hematology - Paras [address] [place] [address] Nelson Cazares MD [address] [facility] [address] [place] [address] 10/04/2024 9:45 AM CDT Office Visit [facility] Orthopedic Surgery at the [facility] [address] [facility] [address] [place] [address] [place] [address] [place] [address] 12/08/2024 11:00 AM CDT Office Visit [facility] Heart and Vascular - [place] [address] [place] [address] Nam Coto MD [address] [facility] [address] [place] [address] 06/13/2025 10:00 AM CDT [facility] [address] [place] [address] [place] [address] [facility] [address] [place] [address] 06/13/2025 11:05 AM CDT Office Visit [facility] Breast Surgery Jaz[place] Couch [address] [place] [address] [place] [address] [facility] [address] [place] [address] documented as of this encounter Visit Diagnoses Not on filedocumented in this encounter Additional Health Concerns Infection Onset Date Last Indicated Resolved Time R/O COVID-19 12/28/2019 12/28/2019 12/30/2019 5:45 AM CDT COVID-19 12/28/2019 12/28/2019 01/27/2020 1:16 AM CDT documented as of this encounter Care Teams Sueding And Buffing Machine Operator Relationship Specialty [place] [address] [place] [phone] PCP - General Internal Medicine 02/18/21 documented as of this encounter
--- OUTSIDE RECORDS SUMMARY | 2024-09-12 10:35 | XMS_ITS | Encounter Summary ---
Author Organization [facility] Address 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 [facility] [address] [place] [address] Nelson Cazares MD [address] [facility] [address] [place] [address] 10/04/2024 9:45 AM CDT Office Visit [facility] Orthopedic Surgery at the [facility] [address] [facility] [address] [place] [address] [place] [address] [place] [address] 12/08/2024 11:00 AM CDT Office Visit [facility] Heart and Vascular - [place] [address] [place] [address] Nam Coto MD [address] [facility] [address] [place] [address] 06/13/2025 10:00 AM CDT [facility] [address] [place] [address] [place] [address] [facility] [address] [place] [address] 06/13/2025 11:05 AM CDT Office Visit [facility] Breast Surgery Jaz[place] Couch [address] [place] [address] [place] [address] [facility] [address] [place] [address] documented as of this encounter Visit Diagnoses Not on filedocumented in this encounter Additional Health Concerns Infection Onset Date Last Indicated Resolved Time R/O COVID-19 12/28/2019 12/28/2019 12/30/2019 5:45 AM CDT COVID-19 12/28/2019 12/28/2019 01/27/2020 1:16 AM CDT documented as of this encounter Care Teams Weather Strip Installer Relationship Specialty [place] [address] [place] [phone] PCP - General Internal Medicine 02/18/21 documented as of this encounter
--- OUTSIDE RECORDS SUMMARY | 2024-09-12 10:35 | XMS_ITS | Encounter Summary ---
Author Organization [facility] Address 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 Gender Identity Not on file Sexual Orientation Not on file documented as of this encounter Plan of Treatment Upcoming Encounters Date Type Department Care Team (Late st Contact Info) Description 09/21/2024 11:30 AM CDT Office Visit [facility] Oncology and Hematology - Paras [address] [facility] [address] [place] [address] Nelson Cazares MD [address] [facility] [address] [place] [address] 10/04/2024 9:45 AM CDT Office Visit [facility] Orthopedic Surgery at the [facility] [address] [facility] [address] [place] [address] [place] [address] [place] [address] 12/08/2024 11:00 AM CDT Office Visit [facility] Heart and Vascular - [place] [address] [place] [address] Nam Coto MD [address] [facility] [address] [place] [address] 06/13/2025 10:00 AM CDT Appointment [facility] [place] Couch [address] [facility] [place] [address] [place] [address] [facility] [address] [place] [address] 06/13/2025 11:05 AM CDT Office Visit [facility] Breast Surgery [place] Khoa [address] [facility] [address] [place] [address] [place] [address] [facility] [address] [place] [address] documented as of this encounter Visit Diagnoses Diagnosis Type II or unspecified type diabetes mellitus without mention of complication, not stated as uncontrolled- Primary documented in this encounter Additional Health Concerns Infection Onset Date Last Indicated Resolved Time R/O COVID-19 12/28/2019 12/28/2019 12/30/2019 5:45 AM CDT COVID-19 12/28/2019 12/28/2019 01/27/2020 1:16 AM CDT documented as of this encounter Care Teams Manufacturing Weaver Relationship Specialty [place] [address] [place] [address] PCP - General Internal Medicine 02/18/21 documented as of this encounter
--- OUTSIDE RECORDS SUMMARY | 2024-09-12 10:35 | XMS_ITS | Encounter Summary ---
Author Organization [facility] Address 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 Gender Identity Not on file Sexual Orientation Not on file documented as of this encounter Plan of Treatment Upcoming Encounters Date Type Department Care Team (Late Contact Info) Description 09/21/2024 11:30 AM CDT Office Visit [facility] Oncology and Hematology - Paras [address] [facility] [address] [place] [address] Nelson Cazares MD [address] [facility] [address] [place] [address] 10/04/2024 9:45 AM CDT Office Visit [facility] Orthopedic Surgery at the [facility] [address] [facility] [address] [place] [address] [place] [address] [place] [address] 12/08/2024 11:00 AM CDT Office Visit [facility] Heart and Vascular - [place] [address] [place] [address] Nam Coto MD [address] [facility] [address] [place] [address] 06/13/2025 10:00 AM CDT [facility] [address] [place] [address] [place] [address] [facility] [address] [place] [address] 06/13/2025 11:05 AM CDT Office Visit [facility] Breast Surgery Jazmin Couch [address] [place] [address] [place] [address] [facility] [address] [place] [address] documented as of this encounter Visit Diagnoses Not on filedocumented in this encounter Additional Health Concerns Infection Onset Date Last Indicated Resolved Time R/O COVID-19 12/28/2019 12/28/2019 12/30/2019 5:45 AM CDT COVID-19 12/28/2019 12/28/2019 01/27/2020 1:16 AM CDT documented as of this encounter Care Teams Parer Relationship Specialty [place] [address] [place] [phone] PCP - General Internal Medicine 02/18/21 documented as of this encounter
--- OUTSIDE RECORDS SUMMARY | 2024-09-12 10:35 | XMS_ITS | Encounter Summary ---
Author Organization [facility] Address [address] [place] [address] Care Team Providers Care Flour Distributor Name Role Phone Kerwin Quiroga MD Primary Care Provider +1- [phone] Encounter Details Date Type Department Care Team (Late st Contact Info) Description 03/24/2003 Outpatient Historical [facility] Thomas Gray MD [address] 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 Gender Identity Not on file Sexual Orientation Not on file documented as of this encounter Plan of Treatment Upcoming Encounters Date Type Department Care Team (Late Contact Info) Description 09/21/2024 11:30 AM CDT Office Visit [facility] Oncology and Hematology - Paras [address] [facility] [address] [place] [address] Nelson Cazares MD [address] [facility] [address] [place] [address] 10/04/2024 9:45 AM CDT Office Visit [facility] Orthopedic Surgery at the [facility] [address] [facility] [address] [place] [address] [place] [address] [place] [address] 12/08/2024 11:00 AM CDT Office Visit [facility] Heart and Vascular - [place] [address] [place] [address] Nam Coto MD [address] [facility] [address] [place] [address] 06/13/2025 10:00 AM CDT [facility]ment [facility] [address] [facility] [address] [place] [address] [facility] [address] [place] [address] 06/13/2025 11:05 AM CDT Office Visit [facility] [address] [facility] [address] [facility] [address] [place] [address] [facility] [address] [place] [address] documented as of this encounter Visit Diagnoses Diagnosis Contusion of foot- Primary documented in this encounter Additional Health Concerns Infection Onset Date Last Indicated Resolved Time R/O COVID-19 12/28/2019 12/28/2019 12/30/2019 5:45 AM CDT COVID-19 12/28/2019 12/28/2019 01/27/2020 1:16 AM CDT documented as of this encounter Care Teams Flour Distributor Relationship Specialty [place] [address] [place] [address] PCP - General Internal Medicine 02/18/21 documented as of this encounter
--- OUTSIDE RECORDS SUMMARY | 2024-09-12 10:35 | XMS_ITS | Encounter Summary ---
Author Organization [facility] Address [address] [place] [address] Care Team Providers Care Search Optimization Analyst Name Role Phone Kerwin Quiroga MD Primary Care Provider +1- [phone] Encounter Details Date Type Department Care Team (Late st Contact Info) Description 10/27/2001 Outpatient Historical [facility]) 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 Gender Identity Not on file Sexual Orientation Not on file documented as of this encounter Plan of Treatment Upcoming Encounters Date Type Department Care Team (Late st Contact Info) Description 09/21/2024 11:30 AM CDT Office Visit [facility] Oncology and Hematology - Paras [address] [place] [address] Nelson Cazares MD [address] [facility] [address] [place] [address] 10/04/2024 9:45 AM CDT Office Visit [facility] Orthopedic Surgery at the [facility] [address] [place] [address] [place] [address] [place] [address] 12/08/2024 11:00 AM CDT Office Visit [facility] Heart and Vascular - [facility] [address] [facility] [address] [place] [address] Nam Coto MD [address] [facility] [address] [place] [address] 06/13/2025 10:00 AM CDT [facility] [address] [place] [address] [place] [address] [facility] [address] [place] [address] 06/13/2025 11:05 AM CDT Office Visit [facility] Breast Surgery [place] Khoa [address] [facility] [address] [place] [address] [place] [address] [facility] [address] [place] [address] documented as of this encounter Visit Diagnoses Not on filedocumented in this encounter Additional Health Concerns Infection Onset Date Last Indicated Resolved Time R/O COVID-19 12/28/2019 12/28/2019 12/30/2019 5:45 AM CDT COVID-19 12/28/2019 12/28/2019 01/27/2020 1:16 AM CDT documented as of this encounter Care Teams Search Optimization Analyst Relationship Specialty [place] [address] [facility] [address] [place] [phone] PCP - General Internal Medicine 02/18/21 documented as of this encounter
--- OUTSIDE RECORDS SUMMARY | 2024-09-12 10:35 | XMS_ITS | Encounter Summary ---
Author Organization [facility] Address 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 Medicine [address] [facility] [address] [place] [address] [place] [address] [place] [address] 12/08/2024 11:00 AM CDT Office Visit [facility] Heart and Vascular - [place] [address] [place] [address] Nam Coto MD [address] [facility] [address] [place] [address] 06/13/2025 10:00 AM CDT Appointment [facility] [place] [address] [facility] [place] [address] [place] [address] [facility] [address] [place] [address] 06/13/2025 11:05 AM CDT Office Visit [facility] Breast Surgery [place]ouch [address] [facility] [address] [place] [address] [place] [address] [facility] [address] [place] [address] documented as of this encounter Visit Diagnoses Diagnosis Urinary tract infection, site not specified- Primary documented in this encounter Additional Health Concerns Infection Onset Date Last Indicated Resolved Time R/O COVID-19 12/28/2019 12/28/2019 12/30/2019 5:45 AM CDT COVID-19 12/28/2019 12/28/2019 01/27/2020 1:16 AM CDT documented as of this encounter Care Teams Wool And Pelt Grader Relationship Specialty [place] [address] [place] [address] PCP - General Internal Medicine 02/18/21 documented as of this encounter
--- OUTSIDE RECORDS SUMMARY | 2024-09-12 10:35 | XMS_ITS | Encounter Summary ---
Author Organization [facility] Address 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 Medicine [address] [facility] [address] [place] [address] [place] [address] [place] [address] 12/08/2024 11:00 AM CDT Office Visit [facility] Heart and Vascular - [place] [address] [place] [address] Nam Coto MD [address] [facility] [address] [place] [address] 06/13/2025 10:00 AM CDT Appointment [facility] Jaz[address] Couch [address] [place] [address] [place] [address] [facility] [address] [place] [address] 06/13/2025 11:05 AM CDT Office Visit [facility] Breast Surgery [place] Couch [address] [place] [address] [place] [address] [place] [address] documented as of this encounter Visit Diagnoses Diagnosis Essential hypertension, benign- Primary documented in this encounter Additional Health Concerns Infection Onset Date Last Indicated Resolved Time R/O COVID-19 12/28/2019 12/28/2019 12/30/2019 5:45 AM CDT COVID-19 12/28/2019 12/28/2019 01/27/2020 1:16 AM CDT documented as of this encounter Care Teams Fuel System Maintenance Supervisor Relationship Specialty [place] [address] [place] [address] PCP - General Internal Medicine 02/18/21 documented as of this encounter
--- OUTSIDE RECORDS SUMMARY | 2024-09-12 10:35 | XMS_ITS | Encounter Summary ---
Author Organization [facility] Address [address] [place] [address] Care Team Providers Care Multimedia Manager Name Role Phone Kerwin Quiroga MD Primary Care Provider +1- [phone] Encounter Details Date Type Department Care Team (Latest Contact Info) Description 07/18/1999 Outpatient Historical HIS [facility] Jeremías Torres MD NO ADDRESS ON FILE Type II or unspecified type diabetes mellitus without mention of complication, not stated as uncontrolled (Primary Dx) Social History Tobacco Use Types Packs/Day Years Used Date Smoking Tobacco: Never Assessed Comments Unknown Sex and Gender Information Value Date Recorded Sex Assigned at Not on file 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 Gender Identity Not on file Sexual Orientation Not on file documented as of this encounter Plan of Treatment Upcoming Encounters Date Type Department Care Team (Late st Contact Info) Description 09/21/2024 11:30 AM CDT Office Visit [facility] Oncology and Hematology - Paras [address] [facility] [address] [place] [address] Nelson Cazares MD [address] [facility] [address] [place] [address] 10/04/2024 9:45 AM CDT Office Visit [facility] Orthopedic Surgery at the [facility] Medicine [address] [facility] [address] [place] [address] [place] [address] [place] [address] 12/08/2024 11:00 AM CDT Office Visit [facility] Heart and Vascular - [place] [address] [place] [address] Nam Coto MD [address] [facility] [address] [place] [address] 06/13/2025 10:00 AM CDT [facility]ment [facility] [address] [place] [address] [place] [address] [facility] [address] [place] [address] 06/13/2025 11:05 AM CDT Office Visit [facility] Breast Surgery [place] [address] [address] [facility] [address] [place] [address] [place] [address] [facility] [address] [place] [address] documented as of this encounter Visit Diagnoses Diagnosis Type II or unspecified type diabetes mellitus without mention of complication, not stated as uncontrolled- Primary documented in this encounter Additional Health Concerns Infection Onset Date Last Indicated Resolved Time R/O COVID-19 12/28/2019 12/28/2019 12/30/2019 5:45 AM CDT COVID-19 12/28/2019 12/28/2019 01/27/2020 1:16 AM CDT documented as of this encounter Care Teams Multimedia Manager Relationship Specialty [place] [address] [place] [address] PCP - General Internal Medicine 02/18/21 documented as of this encounter
--- OUTSIDE RECORDS SUMMARY | 2024-09-12 10:35 | XMS_ITS | Encounter Summary ---
Author Organization [facility] Address 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 Gender Identity Not on file Sexual Orientation Not on file documented as of this encounter Plan of Treatment Upcoming Encounters Date Type Department Care Team (Late Contact Info) Description 09/21/2024 11:30 AM CDT Office Visit [facility] Oncology and Hematology - Paras [address] [facility] [address] [place] [address] Nelson Cazares MD [address] [facility] [address] [place] [address] 10/04/2024 9:45 AM CDT Office Visit [facility] Orthopedic Surgery at the [facility] [address] [facility] [address] [place] [address] [place] [address] [place] [address] 12/08/2024 11:00 AM CDT Office Visit [facility] Heart and Vascular - [place] [address] [place] [address] Nam Coto MD [address] [facility] [address] [place] [address] 06/13/2025 10:00 AM CDT [facility]ment [facility] [address] [place] [address] [place] [address] [facility] [address] [place] [address] 06/13/2025 11:05 AM CDT Office Visit [facility] Breast Surgery Jaz[place] Couch [address] [place] [address] [place] [address] [facility] [address] [place] [address] documented as of this encounter Visit Diagnoses Not on filedocumented in this encounter Additional Health Concerns Infection Onset Date Last Indicated Resolved Time R/O COVID-19 12/28/2019 12/28/2019 12/30/2019 5:45 AM CDT COVID-19 12/28/2019 12/28/2019 01/27/2020 1:16 AM CDT documented as of this encounter Care Teams Veneer Repairer Machine Relationship Specialty [place] [address] [place] [phone] PCP - General Internal Medicine 02/18/21 documented as of this encounter
--- OUTSIDE RECORDS SUMMARY | 2024-09-12 10:35 | XMS_ITS | Encounter Summary ---
Author Organization [facility] Address 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 Gender Identity Not on file Sexual Orientation Not on file documented as of this encounter Plan of Treatment Upcoming Encounters Date Type Department Care Team (Late st Contact Info) Description 09/21/2024 11:30 AM CDT Office Visit [facility] Oncology and Hematology - Paras [address] [facility] [address] [place] [address] Nelson Cazares MD [address] [facility] [address] [place] [address] 10/04/2024 9:45 AM CDT Office Visit [facility] Orthopedic Surgery at the [facility] Medicine [address] [facility] [address] [place] [address] [place] [address] [place] [address] 12/08/2024 11:00 AM CDT Office Visit [facility] Heart and Vascular - [place] [address] [place] [address] Nam Coto MD [address] [facility] [address] [place] [address] 06/13/2025 10:00 AM CDT [facility]ment [facility] [address] [place] [address] [place] [address] [facility] [address] [place] [address] 06/13/2025 11:05 AM CDT Office Visit [facility] Breast Surgery [place] Couch [address] [facility] [address] [place] [address] [place] [address] [facility] [address] [place] [address] documented as of this encounter Visit Diagnoses Diagnosis Unspecified disorder of liver- Primary documented in this encounter Additional Health Concerns Infection Onset Date Last Indicated Resolved Time R/O COVID-19 12/28/2019 12/28/2019 12/30/2019 5:45 AM CDT COVID-19 12/28/2019 12/28/2019 01/27/2020 1:16 AM CDT documented as of this encounter Care Teams Outbound Sales Specialist Relationship Specialty [place] [address] [place] [address] PCP - General Internal Medicine 02/18/21 documented as of this encounter
--- OUTSIDE RECORDS SUMMARY | 2024-09-12 10:35 | XMS_ITS | Encounter Summary ---
Author Organization [facility] Address 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 Gender Identity Not on file Sexual Orientation Not on file documented as of this encounter Plan of Treatment Upcoming Encounters Date Type Department Care Team (Late Contact Info) Description 09/21/2024 11:30 AM CDT Office Visit [facility] Oncology and Hematology - Paras [address] [facility] [address] [place] [address] Nelson Cazares MD [address] [facility] [address] [place] [address] 10/04/2024 9:45 AM CDT Office Visit [facility] Orthopedic Surgery at the [facility] [address] [facility] [address] [place] [address] [place] [address] [place] [address] 12/08/2024 11:00 AM CDT Office Visit [facility] Heart and Vascular - [place] [address] [place] [address] Nam Coto MD [address] [facility] [address] [place] [address] 06/13/2025 10:00 AM CDT [facility] [address] [place] [address] [place] [address] [facility] [address] [place] [address] 06/13/2025 11:05 AM CDT Office Visit [facility] Breast Surgery Jazmin Couch [address] [place] [address] [place] [address] [facility] [address] [place] [address] documented as of this encounter Visit Diagnoses Not on filedocumented in this encounter Additional Health Concerns Infection Onset Date Last Indicated Resolved Time R/O COVID-19 12/28/2019 12/28/2019 12/30/2019 5:45 AM CDT COVID-19 12/28/2019 12/28/2019 01/27/2020 1:16 AM CDT documented as of this encounter Care Teams Dry Cleaning Manager Relationship Specialty [place] [address] [place] [phone] PCP - General Internal Medicine 02/18/21 documented as of this encounter
--- OUTSIDE RECORDS SUMMARY | 2024-09-12 10:35 | XMS_ITS | Encounter Summary ---
Author Organization [facility] Address 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 Gender Identity Not on file Sexual Orientation Not on file documented as of this encounter Plan of Treatment Upcoming Encounters Date Type Department Care Team (Late Contact Info) Description 09/21/2024 11:30 AM CDT Office Visit [facility] Oncology and Hematology - Paras [address] [place] [address] Nelson Cazares MD [address] [facility] [address] [place] [address] 10/04/2024 9:45 AM CDT Office Visit [facility] Orthopedic Surgery at the [facility] [address] [facility] [address] [place] [address] [place] [address] [place] [address] 12/08/2024 11:00 AM CDT Office Visit [facility] Heart and Vascular - [place] [address] [place] [address] Nam Coto MD [address] [facility] [address] [place] [address] 06/13/2025 10:00 AM CDT [facility] [address] [place] [address] [place] [address] [facility] [address] [place] [address] 06/13/2025 11:05 AM CDT Office Visit [facility] Breast Surgery Jazmin Couch [address] [place] [address] [place] [address] [facility] [address] [place] [address] documented as of this encounter Visit Diagnoses Not on filedocumented in this encounter Additional Health Concerns Infection Onset Date Last Indicated Resolved Time R/O COVID-19 12/28/2019 12/28/2019 12/30/2019 5:45 AM CDT COVID-19 12/28/2019 12/28/2019 01/27/2020 1:16 AM CDT documented as of this encounter Care Teams Career And Technology Education Teacher Relationship Specialty [place] [address] [place] [phone] PCP - General Internal Medicine 02/18/21 documented as of this encounter
--- OUTSIDE RECORDS SUMMARY | 2024-09-12 10:35 | XMS_ITS | Encounter Summary ---
Author Organization [facility] Address 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 Gender Identity Not on file Sexual Orientation Not on file documented as of this encounter Plan of Treatment Upcoming Encounters Date Type Department Care Team (Late st Contact Info) Description 09/21/2024 11:30 AM CDT Office Visit [facility] Oncology and Hematology - Paras [address] [facility] [facility] [address] [place] [address] Nelson Cazares MD [address] [facility] [address] [place] [address] 10/04/2024 9:45 AM CDT Office Visit [facility] Orthopedic Surgery at the [facility] [address] [facility] [address] [place] [address] [place] [address] [place] [address] 12/08/2024 11:00 AM CDT Office Visit [facility] Heart and Vascular - [place] [address] [place] [address] Nam Coto MD [address] [facility] [address] [place] [address] 06/13/2025 10:00 AM CDT Appointment [facility] Jazmin Couch [address] [place] [address] [place] [address] [place] [address] 06/13/2025 11:05 AM CDT Office Visit [facility] Breast Surgery Jazmin Couch [address] [place] [address] [place] [address] [place] [address] documented as of this encounter Visit Diagnoses Diagnosis Essential hypertension, benign- Primary documented in this encounter Additional Health Concerns Infection Onset Date Last Indicated Resolved Time R/O COVID-19 12/28/2019 12/28/2019 12/30/2019 5:45 AM CDT COVID-19 12/28/2019 12/28/2019 01/27/2020 1:16 AM CDT documented as of this encounter Care Teams Pad Extractor Tender Relationship Specialty [place] [address] [place] [address] PCP - General Internal Medicine 02/18/21 documented as of this encounter
--- OUTSIDE RECORDS SUMMARY | 2024-09-12 10:35 | XMS_ITS | Encounter Summary ---
Author Organization [facility] Address 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 [address] [facility] [address] [place] [address] [place] [address] [place] [address] 12/08/2024 11:00 AM CDT Office Visit [facility] Heart and Vascular - [place] [address] [place] [address] Nam Coto MD [address] [facility] [address] [place] [address] 06/13/2025 10:00 AM CDT Appointment [facility] Jazmin Couch [address] [place] [address] [place] [address] [place] [address] 06/13/2025 11:05 AM CDT Office Visit [facility] Breast Surgery Jazmin Couch [address] [place] [address] [place] [address] [place] [address] documented as of this encounter Visit Diagnoses Diagnosis Essential hypertension, benign- Primary documented in this encounter Additional Health Concerns Infection Onset Date Last Indicated Resolved Time R/O COVID-19 12/28/2019 12/28/2019 12/30/2019 5:45 AM CDT COVID-19 12/28/2019 12/28/2019 01/27/2020 1:16 AM CDT documented as of this encounter Care Teams Marketing Content Manager Relationship Specialty [place] [address] [place] [address] PCP - General Internal Medicine 02/18/21 documented as of this encounter
--- OUTSIDE RECORDS SUMMARY | 2024-09-12 10:35 | XMS_ITS | Encounter Summary ---
Author Organization [facility] Address [address] [place] [address] Care Team Providers Care Law Tutor Name Role Phone Kerwin Quiroga MD Primary Care Provider +1- [phone] Encounter Details Date Type Department Care Team (Late Contact Info) Description 01/11/2003 Outpatient Historical HIS 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 Gender Identity Not on file Sexual Orientation Not on file documented as of this encounter Plan of Treatment Upcoming Encounters Date Type Department Care Team (Late Contact Info) Description 09/21/2024 11:30 AM CDT Office Visit [facility] Oncology and Hematology - Paras [address] [facility] [address] [place] [address] Nelson Cazares MD [address] [facility] [address] [place] [address] 10/04/2024 9:45 AM CDT Office Visit [facility] Orthopedic Surgery at the [facility] [address] [facility] [address] [place] [address] [place] [address] [place] [address] 12/08/2024 11:00 AM CDT Office Visit [facility] Heart and Vascular - [place] [address] [place] [address] Nam Coto MD [address] [facility] [address] [place] [address] 06/13/2025 10:00 AM CDT [facility]ment [facility] [address] [place] [address] [place] [address] [facility] [address] [place] [address] 06/13/2025 11:05 AM CDT Office Visit [facility] Breast Surgery Jazmin Couch [address] [place] [address] [place] [address] [facility] [address] [place] [address] documented as of this encounter Visit Diagnoses Not on filedocumented in this encounter Additional Health Concerns Infection Onset Date Last Indicated Resolved Time R/O COVID-19 12/28/2019 12/28/2019 12/30/2019 5:45 AM CDT COVID-19 12/28/2019 12/28/2019 01/27/2020 1:16 AM CDT documented as of this encounter Care Teams Law Tutor Relationship Specialty [place] [address] [place] [address] PCP - General Internal Medicine 02/18/21 documented as of this encounter
--- OUTSIDE RECORDS SUMMARY | 2024-09-12 10:35 | XMS_ITS | Encounter Summary ---
Author Organization [facility] Address [address] [place] [address] Care Team Providers Care Cardiograph Operator Name Role Phone Kerwin Quiroga MD Primary Care Provider +1- [phone] Encounter Details Date Type Department Care Team (Latest Contact Info) Description 05/29/1999 Outpatient Historical HIS [facility] Jeremías Torres MD NO ADDRESS ON FILE Other abnormal blood chemistry (Primary Dx) Social History Tobacco Use Types Packs/Day Years Used Date Smoking Tobacco: Never Assessed Comments Unknown Sex and Gender Information Value Date Recorded Sex Assigned at Not on file 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 Gender Identity Not on file Sexual Orientation Not on file documented as of this encounter Plan of Treatment Upcoming Encounters Date Type Department Care Team (Late st Contact Info) Description 09/21/2024 11:30 AM CDT Office Visit [facility] Oncology and Hematology - Paras [address] [facility] [address] [place] [address] Nelson Cazares MD [address] [facility] [address] [place] [address] 10/04/2024 9:45 AM CDT Office Visit [facility] Orthopedic Surgery at the [facility] Medicine [address] [facility] [address] [place] [address] [place] [address] [place] [address] 12/08/2024 11:00 AM CDT Office Visit [facility] Heart and Vascular - [place] [address] [place] [address] Nam Coto MD [address] [facility] [address] [place] [address] 06/13/2025 10:00 AM CDT [facility]ment [facility] [address] [place] [address] [place] [address] [facility] [address] [place] [address] 06/13/2025 11:05 AM CDT Office Visit [facility] Breast Surgery Jersey Couch [address] [facility] [address] [place] [address] [place] [address] [facility] [address] [place] [address] documented as of this encounter Visit Diagnoses Diagnosis Other abnormal blood chemistry- Primary documented in this encounter Additional Health Concerns Infection Onset Date Last Indicated Resolved Time R/O COVID-19 12/28/2019 12/28/2019 12/30/2019 5:45 AM CDT COVID-19 12/28/2019 12/28/2019 01/27/2020 1:16 AM CDT documented as of this encounter Care Teams Cardiograph Operator Relationship Specialty [place] [address] [place] [address] PCP - General Internal Medicine 02/18/21 documented as of this encounter
--- OUTSIDE RECORDS SUMMARY | 2024-09-12 10:35 | XMS_ITS | Encounter Summary ---
Author Organization [facility] Address 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 [address] [place] [address] 10/04/2024 9:45 AM CDT Office Visit [facility] Orthopedic Surgery at the [facility] Medicine [address] [facility] [address] [place] [address] [place] [address] [place] [address] 12/08/2024 11:00 AM CDT Office Visit [facility] Heart and Vascular - [place] [address] [place] [address] Nam Coto MD [address] [facility] [address] [place] [address] 06/13/2025 10:00 AM CDT [facility] [address] [place] [address] [place] [address] [facility] [address] [place] [address] 06/13/2025 11:05 AM CDT Office Visit [facility] Breast Surgery Jersey Couch [address] [facility] [address] [place] [address] [place] [address] [facility] [address] [place] [address] documented as of this encounter Visit Diagnoses Diagnosis Acute upper respiratory infections of unspecified site- Primary documented in this encounter Additional Health Concerns Infection Onset Date Last Indicated Resolved Time R/O COVID-19 12/28/2019 12/28/2019 12/30/2019 5:45 AM CDT COVID-19 12/28/2019 12/28/2019 01/27/2020 1:16 AM CDT documented as of this encounter Care Teams Marine Engineer Cpvec Relationship Specialty [place] [address] [place] [address] PCP - General Internal Medicine 02/18/21 documented as of this encounter
--- OUTSIDE RECORDS SUMMARY | 2024-09-12 10:35 | XMS_ITS | Encounter Summary ---
Author Organization [facility] Address 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 Oncology and Hematology - Paras [address] [facility] [address] [place] [address] Nelson Cazares MD [address] [facility] [address] [place] [address] 10/04/2024 9:45 AM CDT Office [facility] Orthopedic Surgery at the [facility] Medicine [address] [facility] [address] [place] [address] [place] [address] [place] [address] 12/08/2024 11:00 AM CDT Office [facility] Heart and Vascular - [place] [address] [place] [address] Nam Coto MD [address] [facility] [address] [place] [address] 06/13/2025 10:00 AM CDT Appointment [facility] [place] [address] [address] [place] [address] [place] [address] [facility] [address] [place] [address] 06/13/2025 11:05 AM CDT Office Visit [facility] Breast Surgery Jersey Couch [address] [facility] [address] [place] [address] [place] [address] [facility] [address] [place] [address] documented as of this encounter Visit Diagnoses Diagnosis Urinary tract infection, site not specified- Primary documented in this encounter Additional Health Concerns Infection Onset Date Last Indicated Resolved Time R/O COVID-19 12/28/2019 12/28/2019 12/30/2019 5:45 AM CDT COVID-19 12/28/2019 12/28/2019 01/27/2020 1:16 AM CDT documented as of this encounter Care Teams Ornamental Painter Relationship Specialty [place] [address] [place] [address] PCP - General Internal Medicine 02/18/21 documented as of this encounter
--- OUTSIDE RECORDS SUMMARY | 2024-09-12 10:35 | XMS_ITS | Encounter Summary ---
Author Organization [facility] Address 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 Gender Identity Not on file Sexual Orientation Not on file documented as of this encounter Plan of Treatment Upcoming Encounters Date Type Department Care Team (Late st Contact Info) Description 09/21/2024 11:30 AM CDT Office Visit [facility] Oncology and Hematology - Paras [address] [facility] [address] [place] [address] Nelson Cazares MD [address] [facility] [address] [place] [address] 10/04/2024 9:45 AM CDT Office Visit [facility] Orthopedic Surgery at the [facility] Medicine [address] [facility] [address] [place] [address] [place] [address] [place] [address] 12/08/2024 11:00 AM CDT Office Visit [facility] Heart and Vascular - [place] [address] [place] [address] Nam Coto MD [address] [facility] [address] [place] [address] 06/13/2025 10:00 AM CDT Appointment [facility] [place] [address] [place] [address] [place] [address] [facility] [address] [place] [address] 06/13/2025 11:05 AM CDT Office Visit [facility] Breast Surgery Jerseyannie Couch [address] [facility] [address] [place] [address] [place] [address] [facility] [address] [place] [address] documented as of this encounter Visit Diagnoses Diagnosis Unspecified sinusitis (chronic)- Primary documented in this encounter Additional Health Concerns Infection Onset Date Last Indicated Resolved Time R/O COVID-19 12/28/2019 12/28/2019 12/30/2019 5:45 AM CDT COVID-19 12/28/2019 12/28/2019 01/27/2020 1:16 AM CDT documented as of this encounter Care Teams Family Reunification Specialist Relationship Specialty Start [place] [address] [place] [address] PCP - General Internal Medicine 02/18/21 documented as of this encounter
--- OUTSIDE RECORDS SUMMARY | 2024-09-12 10:35 | XMS_ITS | Encounter Summary ---
Author Organization [facility] Address 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 Gender Identity Not on file Sexual Orientation Not on file documented as of this encounter Plan of Treatment Upcoming Encounters Date Type Department Care Team (Late Contact Info) Description 09/21/2024 11:30 AM CDT Office Visit [facility] Oncology and Hematology - Paras [address] [place] [address] Nelson Cazares MD [address] [facility] [address] [place] [address] 10/04/2024 9:45 AM CDT Office Visit [facility] Orthopedic Surgery at the [facility] [address] [facility] [address] [place] [address] [place] [address] [place] [address] 12/08/2024 11:00 AM CDT Office Visit [facility] Heart and Vascular - [place] [address] [place] [address] Nam Coto MD [address] [facility] [address] [place] [address] 06/13/2025 10:00 AM CDT [facility] [address] [place] [address] [place] [address] [facility] [address] [place] [address] 06/13/2025 11:05 AM CDT Office Visit [facility] Breast Surgery Jazmin Couch [address] [place] [address] [place] [address] [facility] [address] [place] [address] documented as of this encounter Visit Diagnoses Not on filedocumented in this encounter Additional Health Concerns Infection Onset Date Last Indicated Resolved Time R/O COVID-19 12/28/2019 12/28/2019 12/30/2019 5:45 AM CDT COVID-19 12/28/2019 12/28/2019 01/27/2020 1:16 AM CDT documented as of this encounter Care Teams Soda Maker Relationship Specialty [place] [address] [place] [phone] PCP - General Internal Medicine 02/18/21 documented as of this encounter
--- OUTSIDE RECORDS SUMMARY | 2024-09-12 10:36 | XMS_ITS | Encounter Summary ---
Author Organization [facility] Address 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 Gender Identity Not on file Sexual Orientation Not on file documented as of this encounter Plan of Treatment Upcoming Encounters Date Type Department Care Team (Late st Contact Info) Description 09/21/2024 11:30 AM CDT Office Visit [facility] Oncology and Hematology - Paras [address] [place] [address] Nelson Cazares MD [address] [facility] [address] [place] [address] 10/04/2024 9:45 AM CDT Office Visit [facility] Orthopedic Surgery at the [facility] Medicine [address] [facility] [address] [place] [address] [place] [address] [place] [address] 12/08/2024 11:00 AM CDT Office Visit [facility] Heart and Vascular - [place] [address] [place] [address] Nam Coto MD [address] [facility] [address] [place] [address] 06/13/2025 10:00 AM CDT [facility] [address] [place] [address] [place] [address] [facility] [address] [place] [address] 06/13/2025 11:05 AM CDT Office Visit [facility] Breast Surgery Jersey Khoa [address] [facility] [address] [place] [address] [place] [address] [facility] [address] [place] [address] documented as of this encounter [...] CDT) COMMENT 3, GLU POC Pre Meal [facility] GLUCOSE POC 155(H) 65 - 99 mg/dL [facility] COMMENT, GLU POC Notified RN [facility] Venous blood specimen (specimen) 08/18/2007 7:13 AM CDT 08/18/2007 7:13 AM CDT us Jose Luis Malcolm MD POINT OF CARE TESTING Final R esult Performing Organization Address City/[facility]/ZIP Co de Phone Number [facility] CLIA# [id number] [address] [place] [address] * (ABNORMAL) POC GLUCOSE (08/17/2007 9:07 PM CDT) GLUCOSE POC 226(H) 65 - 99 mg/dL [facility] COMMENT, GLU POC Notified [facility] Venous blood specimen (specimen) 08/17/2007 9:07 PM CDT 08/17/2007 9:07 PM CDT Jose Luis Malcolm MD POINT OF CARE TESTING Final R esult [facility] CLIA# [id number] [address] [place] [address] * (ABNORMAL) POC GLUCOSE (08/17/2007 4:52 PM CDT) GLUCOSE POC 201(H) 65 - 99 mg/dL [facility] COMMENT, GLU POC Notified RN [facility] Venous blood specimen (specimen) 08/17/2007 4:52 PM CDT 08/17/2007 4:52 PM CDT Jose Luis Malcolm MD POINT OF CARE TESTING Final R esult Performing Organization Address [facility]/ZIP Co de Phone Number [facility] CLIA# [id number] [address] [place] [address] * (ABNORMAL) POC GLUCOSE (08/17/2007 2:44 PM CDT) GLUCOSE POC 203(H) 65 - 99 mg/dL [facility] Venous blood specimen (specimen) 08/17/2007 2:44 PM CDT 08/17/2007 2:44 PM CDT Jose Luis Malcolm MD POINT OF CARE TESTING Final R esult Performing Organization Address [facility] Co de Phone Number [facility] CLIA# [id number] [address] [place] [address] * (ABNORMAL) POC GLUCOSE (08/17/2007 1:48 PM CDT) GLUCOSE POC 200(H) 65 - 99 mg/dL [facility] Venous blood specimen (specimen) 08/17/2007 1:48 PM CDT 08/17/2007 1:48 PM CDT Jose Luis Malcolm MD POINT OF CARE TESTING Final R esult Performing Organization Address [facility]/ZIP Co de Phone Number [facility] CLIA# [id number] [address] [place] [address] * (ABNORMAL) POC GLUCOSE (08/17/2007 9:09 AM CDT) GLUCOSE POC 186(H) 65 - 99 mg/dL [facility] Venous blood specimen (specimen) 08/17/2007 9:09 AM CDT 08/17/2007 9:09 AM CDT Jose Luis Malcolm MD POINT OF CARE TESTING Final R esult Performing Organization Address [facility] Co de Phone Number [facility] CLIA# [id number] [address] [place] [address] * (ABNORMAL) HEMOGLOBIN AND HEMATOCRIT (08/10/2007 9:05 AM CDT) HEMOGLOBIN 15.7(H) 11.8 - 14.8 g/dL [facility] HEMATOCRIT 48.3(H) 35.5 - 44.0 % [facility] Blood specimen (specimen) 08/10/2007 9:05 AM CDT 08/10/2007 10:05 AM CDT Jose Luis Malcolm MD HEMATOLOGY ORDERABLES Final R esult Performing Organization Address [facility] Co de Phone Number [facility] CLIA# [id number] [address] [place] [address] * (ABNORMAL) BASIC METABOLIC PANEL (08/10/2007 9:05 AM CDT) GLUCOSE 139(H) 65 - 99 mg/dL [facility] BUN 9 6 - 20 mg/dL [facility] CHLORIDE 99 96 - 108 mmol/L [facility] CREATININE 0.74 0.51 - 0.95 mg/dL [facility] SODIUM 136 135 - 145 mmol/L [facility] CALCIUM 9.3 8.4 - 10.2 mg/dL [facility] CO2 24 22 - 30 mmol/L [facility] POTASSIUM 4.4 3.5 - 4.9 mmol/L [facility] GFR, >60 >=60 mL/min/1. 7 sq meter [facility] GFR >60 >=60 mL/min/1. 7 sq meter [facility] Comment: Estimated GFR rate interpretative information for both Americans and non- Americans is available on the [facility] Intranet at: [email or web address] Select: Lab Policies and Procedures Select: Reference Ranges - GFR Blood specimen (specimen) 08/10/2007 9:05 AM CDT 08/10/2007 10:05 AM CDT Jose Luis Malcolm MD CHEMISTRY ORDERABLES Edited Performing Organization Address City/[facility]/ZIP Co de Phone Number [facility] CLIA# [id number] [address] [place] [address] * TYPE AND SCREEN (08/10/2007 8:25 AM CDT) HISTORY CHECK No Historical ABO/Rh [facility] SPECIMEN LIFE 3 days from OR date [facility] ABO/RH TYPE A Positive [facility] ANTIBODY SCREEN Negative [facility] Blood specimen (specimen) 08/10/2007 8:25 AM CDT Jose Luis Malcolm MD BLOOD BANK ORDERABLES Edited [facility] CLIA# [id number] [address] [place] [address] documented in this encounter Visit Diagnoses Not on filedocumented in this encounter Additional Health Concerns Infection Onset Date Last Indicated Resolved Time R/O COVID-19 12/28/2019 12/28/2019 12/30/2019 5:45 AM CDT COVID-19 12/28/2019 12/28/2019 01/27/2020 1:16 AM CDT documented as of this encounter Care Teams Carry Out Clerk And Shelf Stocker Relationship Specialty [place] [address] [facility] [address] [place] [phone] PCP - General Internal Medicine 02/18/21 documented as of this encounter
--- OUTSIDE RECORDS SUMMARY | 2024-09-12 10:36 | XMS_ITS | Encounter Summary ---
Author Organization [facility] Address [address] 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 ALTERNATIVE PHONE NUMBER: [phone] WHO CALLED: Patient called. PHARMACY NUMBER: [phone] SECTION 1: REQUESTED ACTION duane 05/21/07 at [...] System Oncology and Hematology - Paras [address] [place] [phone] Nelson Cazares MD [address] [facility] [address] [place] [address] 10/04/2024 9:45 AM CDT Office Visit [facility] Orthopedic Surgery at the [facility] [address] [place] [address] [place] [address] [place] [address] 12/08/2024 11:00 AM CDT Office Visit [facility] Heart and Vascular - [facility] [address] [place] [address] Nam Coto MD [address] [facility] [address] [place] [address] 06/13/2025 10:00 AM CDT Appointment [facility] Jazmin [address] [place] [phone] [place] [address] [place] [address] 06/13/2025 11:05 AM CDT Office Visit [facility] Breast Surgery Jazmin Couch [address] [place] [address] [place] [address] [place] [address] documented as of this encounter Visit Diagnoses Not on filedocumented in this encounter Additional Health Concerns Infection Onset Date Last Indicated Resolved Time R/O COVID-19 12/28/2019 12/28/2019 12/30/2019 5:45 AM CDT COVID-19 12/28/2019 12/28/2019 01/27/2020 1:16 AM CDT documented as of this encounter Care Teams Special Delivery Messenger Relationship Specialty [place] [address] [facility] [address] [place] [phone] PCP - General Internal Medicine 02/18/21 documented as of this encounter
--- OUTSIDE RECORDS SUMMARY | 2024-09-12 10:36 | XMS_ITS | Encounter Summary ---
Author Organization [facility] Address [address] [place] [address] Care Team Providers Care Data Processing Control Clerk Name Role Phone Kerwin Quiroga MD Primary Care Provider +1- [phone] Encounter Details Date Type Department Care Team (Late Contact Info) Description 04/02/1999 Outpatient Historical 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 Gender Identity Not on file Sexual Orientation Not on file documented as of this encounter Plan of Treatment Upcoming Encounters Date Type Department Care Team (Late Contact Info) Description 09/21/2024 11:30 AM CDT Office Visit [facility] Oncology and Hematology - Paras [address] [place] [address] Nelson Cazares MD [address] [facility] [address] [place] [address] 10/04/2024 9:45 AM CDT Office Visit [facility] Orthopedic Surgery at the [facility] [address] [facility] [address] [place] [address] [place] [address] [place] [address] 12/08/2024 11:00 AM CDT Office Visit [facility] Heart and Vascular - [place] [address] [place] [address] Nam Coto MD [address] [facility] [address] [place] [address] 06/13/2025 10:00 AM CDT [facility] [address] [place] [address] [place] [address] [facility] [address] [place] [address] 06/13/2025 11:05 AM CDT Office Visit [facility] Breast Surgery Jazmin Couch [address] [place] [address] [place] [address] [facility] [address] [place] [address] documented as of this encounter Visit Diagnoses Not on filedocumented in this encounter Additional Health Concerns Infection Onset Date Last Indicated Resolved Time R/O COVID-19 12/28/2019 12/28/2019 12/30/2019 5:45 AM CDT COVID-19 12/28/2019 12/28/2019 01/27/2020 1:16 AM CDT documented as of this encounter Care Teams Data Processing Control Clerk Relationship Specialty Start [place] [address] [place] [phone] PCP - General Internal Medicine 02/18/21 documented as of this encounter
--- OUTSIDE RECORDS SUMMARY | 2024-09-12 10:36 | XMS_ITS | Encounter Summary ---
Author Organization [facility] Address [address] [place] [address] Care Team Providers Care Tearoom Host/Hostess Name Role Phone Kerwin Quiroga MD Primary Care Provider +1- [phone] Encounter Details Date Type Department Care Team (Late st Contact Info) Description 06/20/2008 Outpatient Historical [facility] Jacqueline Devlin MD [address] [place] [address] Esophageal Reflux Social History Tobacco Use Types Packs/Day Years Used Date Smoking Tobacco: Never Alcohol Use Standard Drinks/Week Comments Yes 0 (1 standard drink = 0.6 oz pur e alcohol) rare Comments No Sex and Gender Information Value Date Recorded Sex Assigned at Not on file 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 Gender Identity Not on file Sexual Orientation Not on file documented as of this encounter Plan of Treatment Upcoming Encounters Date Type Department Care Team (Late st Contact Info) Description 09/21/2024 11:30 AM CDT Office Visit [facility] Oncology and Hematology - Paras [address] [facility] [address] [place] [address] Nelson Cazares MD [address] [facility] [address] [place] [address] 10/04/2024 9:45 AM CDT Office Visit [facility] Orthopedic Surgery at the [facility] [address] [facility] [address] [place] [address] [place] [address] [place] [address] 12/08/2024 11:00 AM CDT Office Visit [facility] Heart and Vascular - [place] [address] [place] [address] Nam Coto MD [address] [facility] [address] [place] [address] 06/13/2025 10:00 AM CDT [facility] [address] [place] [address] [place] [address] [facility] [address] [place] [address] 06/13/2025 11:05 AM CDT Office Visit [facility] Breast Surgery [facility] [address] [facility] [address] [place] [address] [place] [address] [facility] [address] [place] [address] documented as of this encounter Procedures Procedure Name Priority Date/Time Associated Diagnosis Comments PATHOLOGY Routine 06/20/2008 12:14 PM CDT POC GLUCOSE Routine 06/20/2008 10:43 AM CDT documented in this encounter Results * PATHOLOGY (06/20/2008 12:14 PM CDT) FINAL REPORT [facility] [address] [place], [place] [address] Patient: WILLIAM IZAGUIRRE : 1955 Procedure Date: 06/20/2008 Accession Date: 06/20/2008 Case No: [id number]- [id number] Ordering Dr: JACQUELINE DEVLIN Case types AW, BW, FW, NW and SH are performed by [facility] [place], [place], [place] SURGICAL PATHOLOGY & NON-GYNECOLOGIC CYTOPATHOLOGY REPORT DIAGNOSIS ESOPHAGUS, DISTAL, BIOPSY: - ESOPHAGITIS. - GASTRIC MUCOSA WITH ACTIVE GASTRITIS. Specimen Description: Distal esophagus biopsy. Operative Procedure: EGD. Patient Information/History /Diagnosis: Endoscopic findings c/w Sánchez's esophagus. Bx from this area above GE junction. Is there dysplasia? Gross: Received in a single container labeled William Izaguirre., distal esophagus are two pieces of morejon tissue measuring 0.1 and 0.2 cm that are submitted in A1. LWL/LKP 06.20.2008 03:53 pm Microscopic: The slides are labeled [id number]. The biopsy consists of squamous mucosa in [...] active gastritis. No intestinal metaplasia is seen. [facility]INDEN 06.21.2008 11:30 am Staging Form: No. ELECTRONIC SIGNATURE FOR ANKUR MARIO M.D.- 06/21/08 12:30 pm INTERFACE SYSTEM 06/20/2008 12:1 4 PM CDT Jacqueline Devlin MD PATHOLOGY/CYTOLOGY AIDA LEE Final Result INTERFACE SYSTEM Refer to clinic/hospital department * (ABNORMAL) POC GLUCOSE (06/20/2008 10:43 AM CDT) GLUCOSE POC 121(H) 65 - 99 mg/dL [facility] Venous blood specimen (specimen) 06/20/2008 10:43 AM CDT 06/20/2008 10:43 AM CDT Jacqueline Devlin MD POINT OF CARE TESTING F inal Result INTERFACE SYSTEM Refer to clinic/hospital department [facility] CLIA# [id number] [address] [place] [address] documented in this encounter Visit Diagnoses Diagnosis Esophageal reflux documented in this encounter Additional Health Concerns Infection Onset Date Last Indicated Resolved Time R/O COVID-19 12/28/2019 12/28/2019 12/30/2019 5:45 AM CDT COVID-12/28/2019 12/28/2019 01/27/2020 1:16 AM CDT documented as of this encounter Care Teams Tearoom Host/Hostess Relationship Specialty [place] [address] [facility] [address] [place] [phone] PCP - General Internal Medicine 02/18/21 documented as of this encounter
--- OUTSIDE RECORDS SUMMARY | 2024-09-12 10:36 | XMS_ITS | Encounter Summary ---
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 Gender Identity Not on file Sexual Orientation Not on file documented as of this encounter Plan of Treatment Upcoming Encounters Date Type Department Care Team (Late st Contact Info) Description 09/21/2024 11:30 AM CDT Office Visit [facility] Oncology and Hematology - Paras [address] [place] [address] Nelson Cazares MD [address] [facility] [address] [place] [address] 10/04/2024 9:45 AM CDT Office Visit [facility] Orthopedic Surgery at the [facility] [address] [facility] [address] [place] [address] [place] [address] [place] [address] 12/08/2024 11:00 AM CDT Office Visit [facility] Heart and Vascular - [place] [address] [place] [address] Nam Coto MD [address] [facility] [facility] [address] [place] [address] 06/13/2025 10:00 AM CDT Appointment [facility] Jazmin [address]ouch [address] [place] [address] [place] [address] [facility] [address] [place] [address] 06/13/2025 11:05 AM CDT Office Visit [facility] Breast Surgery Jazmin Couch [address] [place] [address] [place] [address] [facility] [address] [place] [address] documented as of this encounter Visit Diagnoses Not on filedocumented in this encounter Additional Health Concerns Infection Onset Date Last Indicated Resolved Time R/O COVID-19 12/28/2019 12/28/2019 12/30/2019 5:45 AM CDT COVID-19 12/28/2019 12/28/2019 01/27/2020 1:16 AM CDT documented as of this encounter Care Teams Search And Rescue Officer Relationship Specialty Start [place] [address] [place] [address] PCP - General Internal Medicine 02/18/21 documented as of this encounter
--- OUTSIDE RECORDS SUMMARY | 2024-09-12 10:36 | XMS_ITS | Encounter Summary ---
Author Organization [facility] Address 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 Medicine [address] [facility] [address] [place] [address] [place] [address] [place] [address] 12/08/2024 11:00 AM CDT Office Visit [facility] Heart and Vascular - [place] [address] [place] [address] Nam Coto MD [address] [facility] [address] [place] [address] 06/13/2025 10:00 AM CDT Appointment [facility] [address] [address] [place] [address] [place] [address] [place] [address] 06/13/2025 11:05 AM CDT Office Visit [facility] Breast Surgery [place] Khoa [address] [facility] [address] [place] [address] [place] [address] [place] [address] documented as of this encounter Procedures Procedure Name Priority Date/Time Associated Diagnosis Comments NM GASTRIC EMPTYING Timed Study 06/21/2007 9:00 AM CDT documented in this encounter Results * NM GASTRIC EMPTYING (06/21/2007 9:00 AM CDT) Anatomical Region Laterality Modality Abdomen Other 06/21/2007 9:00 AM CDT Narrative 06/21/2007 2:00 PM CDT [facility] [address], [place] [address] Admit Date: 06/21/2007 WILLIAM IZAGUIRRE Sex: F Admit Prov: JACQUELINE DEVLIN Date: 1955 Primary Care Prov: BRITTANY GONZALEZ; CMRN: [id number] ERICK MAYER SSN: [id number] Room: [facility] Ordering Prov: N/A Accession Number: [id number] Interpretation Gastric emptying, solid meal History: 51-year-old [...] 14:00 Procedure Note Provider, Historical - 06/21/2007 [facility] [address], [place] [address] Admit Date: 06/21/2007 WILLIAM IZAGUIRRE Sex: F Admit Prov: JACQUELINE DEVLIN Date: 1955 Primary Care Prov: BRITTANY GONZALEZ; CMRN: [id number] ERICK MAYER N: [id number] Room: [facility] Ordering Prov: N/A Interpretation Gastric [...] documented as of this encounter Care Teams Code And Test Clerk Relationship Specialty [place] [address] [facility] [address] [place] [phone] PCP - General Internal Medicine 02/18/21 documented as of this encounter
--- OUTSIDE RECORDS SUMMARY | 2024-09-12 10:36 | XMS_ITS | Encounter Summary ---
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 Gender Identity Not on file Sexual Orientation Not on file documented as of this encounter Plan of Treatment Upcoming Encounters Date Type Department Care Team (Late st Contact Info) Description 09/21/2024 11:30 AM CDT Office Visit [facility] Oncology and Hematology - Paras [address] [facility] [address] [place] [address] Nelson Cazares MD [address] [facility] [address] [place] [address] 10/04/2024 9:45 AM CDT Office Visit [facility] Orthopedic Surgery at the [facility] [address] [facility] [address] [place] [address] [place] [address] [place] [address] 12/08/2024 11:00 AM CDT Office Visit [facility] Heart and Vascular - [place] [address] [place] [address] Nam Coto MD [address] [facility] [address] [place] [address] 06/13/2025 10:00 AM CD[facility] [address] [place] [address] [place] [address] [facility] [address] [place] [address] 06/13/2025 11:05 AM CDT Office Visit [facility] Breast Surgery [place] Couch [address] [place] [address] [place] [address] [facility] [address] [place] [address] documented as of this encounter Visit Diagnoses Not on filedocumented in this encounter Additional Health Concerns Infection Onset Date Last Indicated Resolved Time R/O COVID-19 12/28/2019 12/28/2019 12/30/2019 5:45 AM CDT COVID-19 12/28/2019 12/28/2019 01/27/2020 1:16 AM CDT documented as of this encounter Care Teams Navigation Teacher Relationship Specialty [place] [address] [place] [phone] PCP - General Internal Medicine 02/18/21 documented as of this encounter
--- OUTSIDE RECORDS SUMMARY | 2024-09-12 10:36 | XMS_ITS | Encounter Summary ---
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 [address] [place] [address] 10/04/2024 9:45 AM CDT Office Visit [facility] Orthopedic Surgery at the [facility] [address] [facility] [address] [place] [address] [place] [address] [place] [address] 12/08/2024 11:00 AM CDT Office Visit [facility] Heart and Vascular - [place] [address] [place] [address] Nam Coto MD [address] [facility] [address] [place] [address] 06/13/2025 10:00 AM CDT Appointment [facility] J[place]ouch [address] [place] [address] [place] [address] [facility] [address] [place] [address] 06/13/2025 11:05 AM CDT Office Visit [facility] Breast Surgery Jaz[place] Couch [address] [place] [address] [place] [address] [facility] [address] [place] [address] documented as of this encounter Visit Diagnoses Not on filedocumented in this encounter Additional Health Concerns Infection Onset Date Last Indicated Resolved Time R/O COVID-19 12/28/2019 12/28/2019 12/30/2019 5:45 AM CDT COVID-19 12/28/2019 12/28/2019 01/27/2020 1:16 AM CDT documented as of this encounter Care Teams Bee Tender Relationship Specialty [place] [address] [place] [address] PCP - General Internal Medicine 02/18/21 documented as of this encounter
--- OUTSIDE RECORDS SUMMARY | 2024-09-12 10:36 | XMS_ITS | Encounter Summary ---
Author Organization Address 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 Gender Identity Not on file Sexual Orientation Not on file documented as of this encounter Plan of Treatment Upcoming Encounters Date Type Department Care Team (Late st Contact Info) Description 09/21/2024 11:30 AM CDT Office Visit [facility] Oncology and Hematology - Paras [address] [facility] [address] [place] [address] Nelson Cazares MD [address] [facility] [address] [place] [address] 10/04/2024 9:45 AM CDT Office Visit [facility] Orthopedic Surgery at the [facility] [address] [facility] [address] [place] [address] [place] [address] [place] [address] 12/08/2024 11:00 AM CDT Office Visit [facility] Heart and Vascular - [place] [address] [place] [address] Nam Coto MD [address] [facility] [address] [place] [address] 06/13/2025 10:00 AM CDT Appointment [facility] [place] [address] [facility] [place] [address] [place] [address] [facility] [address] [place] [address] 06/13/2025 11:05 AM CDT Office Visit [facility] Breast Surgery [place] Couch [address] [facility] [address] [place] [address] [place] [address] [facility] [address] [place] [address] documented as of this encounter Visit Diagnoses Diagnosis Abdominal pain, unspecified site- Primary documented in this encounter Additional Health Concerns Infection Onset Date Last Indicated Resolved Time R/O COVID-19 12/28/2019 12/28/2019 12/30/2019 5:45 AM CDT COVID-19 12/28/2019 12/28/2019 01/27/2020 1:16 AM CDT documented as of this encounter Care Teams Lubrication Technician Relationship Specialty [place] [address] [place] [address] PCP - General Internal Medicine 02/18/21 documented as of this encounter
--- OUTSIDE RECORDS SUMMARY | 2024-09-12 10:36 | XMS_ITS | Encounter Summary ---
Author Organization [facility] Address 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 Gender Identity Not on file Sexual Orientation Not on file documented as of this encounter Plan of Treatment Upcoming Encounters Date Type Department Care Team (Late Contact Info) Description 09/21/2024 11:30 AM CDT Office Visit [facility] Oncology and Hematology - Paras [address] [facility] [address] [place] [address] Nelson Cazares MD [address] [facility] [address] [place] [address] 10/04/2024 9:45 AM CDT Office Visit [facility] Orthopedic Surgery at the [facility] [address] [facility] [address] [place] [address] [place] [address] [place] [address] 12/08/2024 11:00 AM CDT Office Visit [facility] Heart and Vascular - [place] [address] [place] [address] Nam Coto MD [address] [facility] [address] [place] [address] 06/13/2025 10:00 AM CDT [facility] [address] [place] [address] [place] [address] [facility] [address] [place] [address] 06/13/2025 11:05 AM CDT Office Visit [facility] Breast Surgery [place] Couch [address] [place] [address] [place] [address] [facility] [address] [place] [address] documented as of this encounter Visit Diagnoses Not on filedocumented in this encounter Additional Health Concerns Infection Onset Date Last Indicated Resolved Time R/O COVID-19 12/28/2019 12/28/2019 12/30/2019 5:45 AM CDT COVID-19 12/28/2019 12/28/2019 01/27/2020 1:16 AM CDT documented as of this encounter Care Teams Reclamation Supervisor Relationship Specialty [place] [address] [place] [phone] PCP - General Internal Medicine 02/18/21 documented as of this encounter
--- OUTSIDE RECORDS SUMMARY | 2024-09-12 10:36 | XMS_ITS | Encounter Summary ---
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 Gender Identity Not on file Sexual Orientation Not on file documented as of this encounter Plan of Treatment Upcoming Encounters Date Type Department Care Team (Late st Contact Info) Description 09/21/2024 11:30 AM CDT Office Visit [facility] Oncology and Hematology - Paras [address] [facility] [address] [place] [address] Nelson Cazares MD [address] [facility] [address] [place] [address] 10/04/2024 9:45 AM CDT Office Visit [facility] Orthopedic Surgery at the [facility] [address] [facility] [address] [place] [address] [place] [address] [place] [address] 12/08/2024 11:00 AM CDT Office Visit [facility] Heart and Vascular - [place] [address] [place] [address] Nam Coto MD [address] [facility] [address] [place] [address] 06/13/2025 10:00 AM CDT Appointment [facility] Jazmin [address]ouch [address] [place] [address] [place] [address] [facility] [address] [place] [address] 06/13/2025 11:05 AM CDT Office Visit [facility] Breast Surgery [place] Couch [address] [place] [address] [place] [address] [facility] [address] [place] [address] documented as of this encounter Visit Diagnoses Not on filedocumented in this encounter Additional Health Concerns Infection Onset Date Last Indicated Resolved Time R/O COVID-19 12/28/2019 12/28/2019 12/30/2019 5:45 AM CDT COVID-19 12/28/2019 12/28/2019 01/27/2020 1:16 AM CDT documented as of this encounter Care Teams Automation Manager Relationship Specialty [place] [address] [place] [address] PCP - General Internal Medicine 02/18/21 documented as of this encounter
--- OUTSIDE RECORDS SUMMARY | 2024-09-12 10:36 | XMS_ITS | Encounter Summary ---
Author Organization [facility] Address 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 Gender Identity Not on file Sexual Orientation Not on file documented as of this encounter Plan of Treatment Upcoming Encounters Date Type Department Care Team (Late st Contact Info) Description 09/21/2024 11:30 AM CDT Office Visit [facility] Oncology and Hematology - Paras [address] [facility] [address] [place] [address] Nelson Cazares MD [address] [facility] [address] [place] [address] 10/04/2024 9:45 AM CDT Office Visit [facility] Orthopedic Surgery at the [facility] [address] [facility] [address] [place] [address] [place] [address] [place] [address] 12/08/2024 11:00 AM CDT Office Visit [facility] Heart and Vascular - [place] [address] [place] [address] Nam Coto MD [address] [facility] [address] [place] [address] 06/13/2025 10:00 AM CDT Appointment [facility] [place] [address] [facility] [place] [address] [place] [address] [facility] [address] [place] [address] 06/13/2025 11:05 AM CDT Office [facility] Breast Surgery [place] Couch [address] [facility] [address] [place] [address] [place] [address] [facility] [address] [place] [address] documented as of this encounter Visit Diagnoses Diagnosis Abdominal pain, unspecified site- Primary documented in this encounter Additional Health Concerns Infection Onset Date Last Indicated Resolved Time R/O COVID-19 12/28/2019 12/28/2019 12/30/2019 5:45 AM CDT COVID-19 12/28/2019 12/28/2019 01/27/2020 1:16 AM CDT documented as of this encounter Care Teams Fire Captain Marine Relationship Specialty [place] [address] [place] [address] PCP - General Internal Medicine 02/18/21 documented as of this encounter
--- OUTSIDE RECORDS SUMMARY | 2024-09-12 10:36 | XMS_ITS | Encounter Summary ---
Author Organization [facility] Address [address] [facility] Attn: [place] [address] Care Team Providers Care Biological Technician Name Role Phone Kerwin Quiroga MD Primary Care Provider +1- [phone] Encounter Details Date Type Department Care Team (Late Contact Info) Description 03/02/1995 Outpatient Historical Jeremías Farias MD NO ADDRESS ON FILE Social History Tobacco Use Types Packs/Day Years Used Date Smoking Tobacco: Never Assessed Comments Unknown Sex and Gender Information Value Date Recorded Sex Assigned at Not on file Legal Sex Female 4:29 AM PEARL HAND Gender Identity Not on file Sexual Orientation Not on file documented as of this encounter Plan of Treatment Upcoming Encounters Date Type Department Care Team (Late st Contact Info) Description 09/21/2024 11:30 AM CDT Office Visit [facility] Oncology and Hematology - Paras [address] [facility] [address] [place] [address] Nelson Cazares MD [address] [facility] [address] [place] [address] 10/04/2024 9:45 AM CDT Office Visit [facility] Orthopedic Surgery at the [facility] [address] [facility] [address] [place] [address] [place] [address] [place] [address] 12/08/2024 11:00 AM CDT Office Visit [facility] Heart and Vascular - [place] [address] [place] [address] Nam Coto MD [address] [facility] [address] [place] [address] 06/13/2025 10:00 AM CDT Appointment [facility] J[place] [address] [place] [address] [place] [address] [facility] [address] [place] [address] 06/13/2025 11:05 AM CDT Office Visit [facility] Breast Surgery [place] Couch [address] [place] [address] [place] [address] [facility] [address] [place] [address] documented as of this encounter Visit Diagnoses Not on filedocumented in this encounter Additional Health Concerns Infection Onset Date Last Indicated Resolved Time R/O COVID-19 12/28/2019 12/28/2019 12/30/2019 5:45 AM CDT COVID-19 12/28/2019 12/28/2019 01/27/2020 1:16 AM CDT documented as of this encounter Care Teams Biological Technician Relationship Specialty [place] [address] [place] [address] PCP - General Internal Medicine 02/18/21 documented as of this encounter
--- OUTSIDE RECORDS SUMMARY | 2024-09-12 10:36 | XMS_ITS | Encounter Summary ---
Author Organization [facility] Address 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 Gender Identity Not on file Sexual Orientation Not on file documented as of this encounter Plan of Treatment Upcoming Encounters Date Type Department Care Team (Late st Contact Info) Description 09/21/2024 11:30 AM CDT Office Visit [facility] Oncology and Hematology - Paras [address] [facility] [address] [place] [address] Nelson Cazares MD [address] [facility] [address] [place] [address] 10/04/2024 9:45 AM CDT Office Visit [facility] Orthopedic Surgery at the [facility] Medicine [address] [facility] [address] [place] [address] [place] [address] [place] [address] 12/08/2024 11:00 AM CDT Office Visit [facility] Heart and Vascular - [place] [address] [place] [address] Nam Coto MD [address] [facility] [address] [place] [address] 06/13/2025 10:00 AM CDT [facility] [address] [place] [address] [place] [address] [facility] [address] [place] [address] 06/13/2025 11:05 AM CDT Office Visit [facility] Breast Surgery [facility] [address] [facility] [address] [address] [place] [address] [facility] [address] [place] [address] documented as of this encounter Procedures Procedure Name Priority Date/Time Associated Diagnosis Comments US ABDOMEN LIMITED Timed Study 04/06/2008 7: 23 AM ELECTRONICS MECHANIC documented in this encounter Results * US ABDOMEN LIMITED (04/06/2008 7:23 AM ELECTRONICS MECHANIC) Anatomical Region Laterality Modality Abdomen Other 04/06/2008 7:23 AM ELECTRONICS MECHANIC Narrative 04/06/2008 9:07 AM ELECTRONICS MECHANIC [facility] [address] [place], [place] [address] Admit Date: 04/06/2008 WILLIAM IZAGUIRRE Sex: F Admit Prov: BRITTANY GONZALEZ Date: 1955 Primary Care Prov: BRITTANY GONZALEZ; CMRN: [id number] ERICK MAYER SSN: [id number] Room: [facility] Ordering Prov: N/A Accession Number: [id number] Interpretation ULTRASOUND OF THE ABDOMEN, LIMITED, 04/06/2008 [...] DKT Procedure Note Provider, Historical - 04/06/2008 [facility] [address] [place], [place] [address] Admit Date: 04/06/2008 WILLIAM IZAGUIRRE Sex: F Admit Prov: BRITTANY GONZALEZ Date: 1955 Primary Care Prov: BRITTANY GONZALEZ; CMRN: [id number] ERICK MAYER SSN: [id number] Room: [facility] Ordering Prov: N/A Interpretation ULTRASOUND [...] BRANDT 04/06/2008 09:06 Transcribed: 04/06/2008 09:00 DKT us Brittany Gonzalez MD ORDERABLES Final Res ult documented in this encounter Visit Diagnoses Diagnosis Abdominal pain, right upper quadrant documented in this encounter Additional Health Concerns Infection Onset Date Last Indicated Resolved Time R/O COVID-19 12/28/2019 12/28/2019 12/30/2019 5:45 AM CDT COVID-19 12/28/2019 12/28/2019 01/27/2020 1:16 AM CDT documented as of this encounter Care Teams Stenocaptioner Relationship Specialty Start [place] [address] [facility] [address] [place] [address] PCP - General Internal Medicine 02/18/21 documented as of this encounter
--- OUTSIDE RECORDS SUMMARY | 2024-09-12 10:36 | XMS_ITS | Encounter Summary ---
Author Organization [facility] Healthcare Address [address] [place] [address] Care Team Providers Care Pediatric Nephrologist Name Role Phone Kerwin Quiroga MD Primary Care Provider +1 -[phone] Encounter Details Date Type Department Care Team (Late st Contact Info) Description 09/08/2024 Results Follow-Up [facility] [address] [place] [address] Tatiana Rowell, LISA [address] [place] [address] Urine culture Urine, clean voided Social History Tobacco Use Types Packs/Day Years Used Date Smoking Tobacco: Never Smokeless Tobacco: Never Comments No Sex and Gender Information Value Date Recorded Sex Assigned at Not on file 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 * Telephone Encounter - Nargis Madison MA - 09/11/2024 7:52 PM CDT ----- Message from Mariela Cardona NP sent at 09/09/2024 12:35 PM CDT ----- Please call patient and let her know that her urine culture came back positive for UTI/bacteria. The antibiotic she was prescribed we will not treat this particular bacteria. I have since cephalexin to the pharmacy for her. Please tell her to stop the nitrofurantoin and start the cephalexin as soon as possible. ----- Message ----- From: Interface, Lab Results In Sent: 09/08/2024 12:07 PM CDT To: [facility] Provider [employer] * Telephone Encounter - Nargis Madison MA - 09/09/2024 1:28 PM CDT Left message for patient to call back to discuss urine culture results. * Telephone Encounter - Nargis Madison MA - 09/09/2024 1:28 PM CDT ----- Message from Mariela Cardona NP sent at 09/09/2024 12:35 PM CDT ----- Please call patient and let her know that her urine culture came back positive for UTI/bacteria. The antibiotic she was prescribed we will not treat this particular bacteria. I have since cephalexin to the pharmacy for her. Please tell her to stop the nitrofurantoin and start the cephalexin as soon as possible. ----- Message ----- From: Interface, Lab Results In Sent: 09/08/2024 12:07 PM CDT To: [facility] [employer] Provider [employer] documented in this encounter Plan of Treatment Not on file documented as of this encounter Visit Diagnoses Not on filedocumented in this encounter Discontinued Medications Medication Sig Discontinue Reason Start Date End Da te nitrofurantoin monohydrate (MACROBID) 100 mg capsuleIndications:Acute cystitis with hematuria Take 1 capsule (100 mg total) by mouth 2 (two) times a day for 5 days Therapy completed 09/07/2024 09/09/2024 documented as of this encounter Care Teams Pediatric Nephrologist Relationship Specialty Start [place] [address] [address] PCP - General Internal Medicine 01/18/21 documented as of this encounter
--- OUTSIDE RECORDS SUMMARY | 2024-09-12 10:36 | XMS_ITS | Encounter Summary ---
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 Gender Identity Not on file Sexual Orientation Not on file documented as of this encounter Plan of Treatment Upcoming Encounters Date Type Department Care Team (Late st Contact Info) Description 09/21/2024 11:30 AM CDT Office Visit [facility] Oncology and Hematology - Paras [address] [facility] [address] [place] [address] Nelson Cazares MD [address] [facility] [address] [place] [address] 10/04/2024 9:45 AM CDT Office Visit [facility] Orthopedic Surgery at the [facility] [address] [facility] [address] [place] [address] [place] [address] [place] [address] 12/08/2024 11:00 AM CDT Office Visit [facility] Heart and Vascular - [place] [address] [place] [address] Nam Coto MD [address] [facility] [address] [place] [address] 06/13/2025 10:00 AM CDT Appointment [facility] [address] [place] [address] [place] [address] [facility] [address] [place] [address] 06/13/2025 11:05 AM CDT Office Visit [facility] Breast Surgery [address] [address] [place] [address] [place] [address] [facility] [address] [place] [address] documented as of this encounter Visit Diagnoses Not on filedocumented in this encounter Additional Health Concerns Infection Onset Date Last Indicated Resolved Time R/O COVID-19 12/28/2019 12/28/2019 12/30/2019 5:45 AM CDT COVID-19 12/28/2019 12/28/2019 01/27/2020 1:16 AM CDT documented as of this encounter Care Teams Corn Cooker Relationship Specialty [place] [address] [place] [address] PCP - General Internal Medicine 02/18/21 documented as of this encounter
--- OUTSIDE RECORDS SUMMARY | 2024-09-12 10:36 | XMS_ITS | Encounter Summary ---
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 Gender Identity Not on file Sexual Orientation Not on file documented as of this encounter Plan of Treatment Upcoming Encounters Date Type Department Care Team (Late st Contact Info) Description 09/21/2024 11:30 AM CDT Office Visit [facility] Oncology and Hematology - Paras [address] [facility] [address] [place] [address] Nelson Cazares MD [address] [facility] [address] [place] [address] 10/04/2024 9:45 AM CDT Office Visit [facility] Orthopedic Surgery at the [facility] [address] [facility] [address] [place] [address] [place] [address] [place] [address] 12/08/2024 11:00 AM CDT Office Visit [facility] Heart and Vascular - [place] [address] [place] [address] Nam Coto MD [address] [facility] [address] [place] [address] 06/13/2025 10:00 AM CDT Appointment [facility] [address] [place] [address] [place] [address] [facility] [address] [place] [address] 06/13/2025 11:05 AM CDT Office Visit [facility] Breast Surgery [address] [place] [address] [place] [address] [facility] [address] [place] [address] documented as of this encounter Visit Diagnoses Not on filedocumented in this encounter Additional Health Concerns Infection Onset Date Last Indicated Resolved Time R/O COVID-19 12/28/2019 12/28/2019 12/30/2019 5:45 AM CDT COVID-19 12/28/2019 12/28/2019 01/27/2020 1:16 AM CDT documented as of this encounter Care Teams Casting Machine Adjuster Relationship Specialty [place] [address] [place] [address] PCP - General Internal Medicine 02/18/21 documented as of this encounter
--- OUTSIDE RECORDS SUMMARY | 2024-09-12 10:36 | XMS_ITS | Encounter Summary ---
Author Organization [facility] Address [address] 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 Gender Identity Not on file Sexual Orientation Not on file documented as of this encounter Plan of Treatment Upcoming Encounters Date Type Department Care Team (Late st Contact Info) Description 09/21/2024 11:30 AM CDT Office Visit [facility] Oncology and Hematology - Paras [address] [facility] [address] [place] [address] Nelson Cazares MD [address] [facility] [address] [place] [address] 10/04/2024 9:45 AM CDT Office Visit [facility] Orthopedic Surgery at the [facility] [address] [facility] [address] [place] [address] [place] [address] [place] [address] 12/08/2024 11:00 AM CDT Office Visit [facility] Heart and Vascular - [place] [address] [place] [address] Nam Coto MD [address] [facility] [address] [place] [address] 06/13/2025 10:00 AM CDT Appointment [facility] [address] [place] [address] [place] [address] [facility] [address] [place] [address] 06/13/2025 11:05 AM CDT Office Visit [facility] Breast Surgery [address] [address] [place] [address] [place] [address] [facility] [address] [place] [address] documented as of this encounter Visit Diagnoses Not on filedocumented in this encounter Additional Health Concerns Infection Onset Date Last Indicated Resolved Time R/O COVID-19 12/28/2019 12/28/2019 12/30/2019 5:45 AM CDT COVID-19 12/28/2019 12/28/2019 01/27/2020 1:16 AM CDT documented as of this encounter Care Teams Manager Of Enterprise Relationship Specialty [place] [address] [place] [address] PCP - General Internal Medicine 02/18/21 documented as of this encounter
--- OUTSIDE RECORDS SUMMARY | 2024-09-12 10:36 | XMS_ITS | Encounter Summary ---
Author Organization [facility] Address 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 Gender Identity Not on file Sexual Orientation Not on file documented as of this encounter Plan of Treatment Upcoming Encounters Date Type Department Care Team (Late Contact Info) Description 09/21/2024 11:30 AM CDT [facility]ology - Paras [address] [facility] [address] [place] [address] Nelson Cazares MD [address] [facility] [address] [place] [address] 10/04/2024 9:45 AM CDT [facility] at [facility] [address] [facility] [address] [place] [address] [place] [address] [place] [address] 12/08/2024 11:00 AM CDT [facility] Visit [facility] Heart and Vascular - [place] [address] [place] [address] Nam Coto MD [address] [facility] [address] [place] [address] 06/13/2025 10:00 AM CDT Appointment [facility] [address] [address] [place] [address] [place] [address] [facility] [address] [place] [address] 06/13/2025 11:05 AM CDT [facility] [address] [facility] [address] [place] [address] [place] [address] [facility] [address] [place] [address] documented as of this encounter Visit Diagnoses Not on filedocumented in this encounter Additional Health Concerns Infection Onset Date Last Indicated Resolved Time R/O COVID-19 12/28/2019 12/28/2019 12/30/2019 5:45 AM CDT COVID-19 12/28/2019 12/28/2019 01/27/2020 1:16 AM CDT documented as of this encounter Care Teams Checkroom Chief Relationship Specialty [place] [address] [facility] [address] [place] [address] PCP - General Internal Medicine 02/18/21 documented as of this encounter
--- OUTSIDE RECORDS SUMMARY | 2024-09-12 10:36 | XMS_ITS | Encounter Summary ---
Author Organization [facility] Address [address] [place] [address] Care Team Providers Care Low Pressure Boiler Operator Name Role Phone Kerwin Quiroga MD Primary Care Provider +1- [phone] Encounter Details Date Type Department Care Team (Late st Contact Info) Description 03/29/2008 Outpatient Historical [facility] Yasemin Magallon MD NO ADDRESS ON FILE Unspecified Backache Social History Tobacco Use Types Packs/Day Years Used Date Smoking Tobacco: Never Alcohol Use Standard Drinks/Week Comments Yes 0 (1 standard drink = 0.6 oz pur e alcohol) rare Comments No Sex and Gender Information Value Date Recorded Sex Assigned at Not on file 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 Gender Identity Not on file Sexual Orientation Not on file documented as of this encounter Plan of Treatment Upcoming Encounters Date Type Department Care Team (Late st Contact Info) Description 09/21/2024 11:30 AM CDT Office Visit [facility] Oncology and Hematology - Paras [address] [facility] [address] [place] [address] Nelson Cazares MD [address] [facility] [address] [place] [address] 10/04/2024 9:45 AM CDT Office Visit [facility] Orthopedic Surgery at the [facility] [address] [facility] [address] [place] [address] [place] [address] [place] [address] 12/08/2024 11:00 AM CDT Office Visit [facility] Heart and Vascular - [place] [address] [place] [address] Nam Coto MD [address] [facility] [address] [place] [address] 06/13/2025 10:00 AM CDT [facility] [address] [place] [address] [place] [address] [place] [address] 06/13/2025 11:05 AM CDT Office Visit [facility] [address] [facility] [address] [place] [address] [place] [address] [place] [address] documented as of this encounter Visit Diagnoses Diagnosis Backache, unspecified documented in this encounter Additional Health Concerns Infection Onset Date Last Indicated Resolved Time R/O COVID-19 12/28/2019 12/28/2019 12/30/2019 5:45 AM CDT COVID-19 12/28/2019 12/28/2019 01/27/2020 1:16 AM CDT documented as of this encounter Care Teams Low Pressure Boiler Operator Relationship Specialty [place] [address] [place] [address] PCP - General Internal Medicine 02/18/21 documented as of this encounter
--- OUTSIDE RECORDS SUMMARY | 2024-09-12 10:36 | XMS_ITS | Encounter Summary ---
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 Gender Identity Not on file Sexual Orientation Not on file documented as of this encounter Plan of Treatment Upcoming Encounters Date Type Department Care Team (Late st Contact Info) Description 09/21/2024 11:30 AM CDT Office Visit [facility] Oncology and Hematology - Paras [address] [facility] [address] [place] [address] Nelson Cazares MD [address] [facility] [address] [place] [address] 10/04/2024 9:45 AM CDT Office Visit [facility] Orthopedic Surgery at the [facility] [address] [facility] [address] [place] [address] [place] [address] [place] [address] 12/08/2024 11:00 AM CDT Office Visit [facility] Heart and Vascular - [place] [address] [place] [address] Nam Coto MD [address] [facility] [address] [place] [address] 06/13/2025 10:00 AM CDT Appointment [facility] [address] [place] [address] [place] [address] [facility] [address] [place] [address] 06/13/2025 11:05 AM CDT Office Visit [facility] Breast Surgery [address] [place] [address] [place] [address] [facility] [address] [place] [address] documented as of this encounter Visit Diagnoses Not on filedocumented in this encounter Additional Health Concerns Infection Onset Date Last Indicated Resolved Time R/O COVID-19 12/28/2019 12/28/2019 12/30/2019 5:45 AM CDT COVID-19 12/28/2019 12/28/2019 01/27/2020 1:16 AM CDT documented as of this encounter Care Teams Head Cook Relationship Specialty [place] [address] [place] [address] PCP - General Internal Medicine 02/18/21 documented as of this encounter
--- OUTSIDE RECORDS SUMMARY | 2024-09-12 10:36 | XMS_ITS | Encounter Summary ---
Author Organization [facility] Address [address] [facility] Attn: [place] [address] Care Team Providers Care Quantitative Analyst Name Role Phone Kerwin Quiroga MD Primary Care Provider +1- [phone] Encounter Details Date Type Department Care Team (Late Contact Info) Description 08/20/1995 Outpatient Historical Jeremías Farias MD NO ADDRESS ON FILE Social History Tobacco Use Types Packs/Day Years Used Date Smoking Tobacco: Never Assessed Comments Unknown Sex and Gender Information Value Date Recorded Sex Assigned at Not on file Legal Sex Female 4:29 AM HEAD CHEF Gender Identity Not on file Sexual Orientation Not on file documented as of this encounter Plan of Treatment Upcoming Encounters Date Type Department Care Team (Late st Contact Info) Description 09/21/2024 11:30 AM CDT Office Visit [facility] Oncology and Hematology - Paras [address] [facility] [address] [place] [address] Nelson Cazares MD [address] [facility] [address] [place] [address] 10/04/2024 9:45 AM CDT Office Visit [facility] Orthopedic Surgery at the [facility] [address] [facility] [address] [place] [address] [place] [address] [place] [address] 12/08/2024 11:00 AM CDT Office Visit [facility] Heart and Vascular - [place] [address] [place] [address] Nam Coto MD [address] [facility] [address] [place] [address] 06/13/2025 10:00 AM CDT Appointment [facility] J[place] [address] [place] [address] [place] [address] [facility] [address] [place] [address] 06/13/2025 11:05 AM CDT Office Visit [facility] Breast Surgery [place] [address] [place] [address] [place] [address] [facility] [address] [place] [address] documented as of this encounter Visit Diagnoses Not on filedocumented in this encounter Additional Health Concerns Infection Onset Date Last Indicated Resolved Time R/O COVID-19 12/28/2019 12/28/2019 12/30/2019 5:45 AM CDT COVID-19 12/28/2019 12/28/2019 01/27/2020 1:16 AM CDT documented as of this encounter Care Teams Quantitative Analyst Relationship Specialty Start [place] [address] [place] [address] PCP - General Internal Medicine 02/18/21 documented as of this encounter
--- OUTSIDE RECORDS SUMMARY | 2024-09-12 10:36 | XMS_ITS | Encounter Summary ---
Author Organization [facility] Address [address] [facility] Attn: [place] [address] Care Team Providers Care Radio Producer Name Role Phone Kerwin Quiroga MD Primary Care Provider +1- [phone] Encounter Details Date Type Department Care Team (Late Contact Info) Description 10/06/1994 Outpatient Historical Jeremías Farias MD NO ADDRESS ON FILE Social History Tobacco Use Types Packs/Day Years Used Date Smoking Tobacco: Never Assessed Comments Unknown Sex and Gender Information Value Date Recorded Sex Assigned at Not on file Legal Sex Female 4:29 AM MEDIA ANALYTICS MANAGER Gender Identity Not on file Sexual Orientation Not on file documented as of this encounter Plan of Treatment Upcoming Encounters Date Type Department Care Team (Late st Contact Info) Description 09/21/2024 11:30 AM CDT Office Visit [facility] [place] Oncology and Hematology - Paras [address] [facility] [address] [place] [address] Nelson Cazares MD [address] [facility] [address] [place] [address] 10/04/2024 9:45 AM CDT Office Visit [facility] Orthopedic Surgery at the [facility] [address] [facility] [address] [place] [address] [place] [address] [place] [address] 12/08/2024 11:00 AM CDT Office Visit [facility] [place] Heart and Vascular - [place] [address] [place] [address] Nam Coto MD [address] [facility] [address] [place] [address] 06/13/2025 10:00 AM CDT Appointment [facility] [place] [address] [place] [address] [place] [address] [facility] [address] [place] [address] 06/13/2025 11:05 AM CDT Office Visit [facility] Breast Surgery [place] [address] [place] [address] [place] [address] [facility] [address] [place] [address] documented as of this encounter Visit Diagnoses Not on filedocumented in this encounter Additional Health Concerns Infection Onset Date Last Indicated Resolved Time R/O COVID-19 12/28/2019 12/28/2019 12/30/2019 5:45 AM CDT COVID-19 12/28/2019 12/28/2019 01/27/2020 1:16 AM CDT documented as of this encounter Care Teams Radio Producer Relationship Specialty [place] [address] [place] [address] PCP - General Internal Medicine 02/18/21 documented as of this encounter
--- OUTSIDE RECORDS SUMMARY | 2024-09-12 10:36 | XMS_ITS | Encounter Summary ---
Author Organization [facility] Address [address] [place] [address] Care Team Providers Care Gas Mask Inspector Name Role Phone Kerwin Quiroga MD Primary Care Provider +1- [phone] Encounter Details Date Type Department Care Team (Late st Contact Info) Description 09/16/2008 Outpatient Historical [facility] Er, Authorized P NO ADDRESS ON FILE Doe Basurto MD [address] [facility] [place] [address] Social History Tobacco Use Types Packs/Day Years Used Date Smoking Tobacco: Never Alcohol Use Standard Drinks/Week Comments Yes 0 (1 standard drink = 0.6 oz pur e alcohol) rare Comments No Sex and Gender Information Value Date Recorded Sex Assigned at Not on file Legal Sex Female 4:29 AM SPANISH TRANSLATOR Gender Identity Not on file Sexual Orientation Not on file documented as of this encounter Plan of Treatment Upcoming Encounters Date Type Department Care Team (Late st Contact Info) Description 09/21/2024 11:30 AM CDT Office Visit [facility] Oncology and Hematology - Paras [address] [facility] [address] [place] [address] Nelson Cazares MD [address] [facility] [address] [place] [address] 10/04/2024 9:45 AM CDT Office Visit [facility] Orthopedic Surgery at the [facility] [address] [facility] [address] [place] [address] [place] [address] [place] [address] 12/08/2024 11:00 AM CDT Office Visit [facility] - [facility] [address] [place] [address] Nam Coto MD [address] [facility] [address] [place] [address] 06/13/2025 10:00 AM CDT Appointment [facility] [place] [address] [place] [address] [place] [address] [facility] [address] [place] [address] 06/13/2025 11:05 AM CDT Office Visit [facility] Breast Surgery [address] [facility] [address] [place] [address] [place] [address] [facility] [address] [place] [address] documented as of this encounter Visit Diagnoses Not on filedocumented in this encounter Additional Health Concerns Infection Onset Date Last Indicated Resolved Time R/O COVID-19 12/28/2019 12/28/2019 12/30/2019 5:45 AM CDT COVID-19 12/28/2019 12/28/2019 01/27/2020 1:16 AM CDT documented as of this encounter Care Teams Gas Mask Inspector Relationship Specialty [place] [address] [facility] [address] [place] [address] PCP - General Internal Medicine 02/18/21 documented as of this encounter
--- OUTSIDE RECORDS SUMMARY | 2024-09-12 10:36 | XMS_ITS | Encounter Summary ---
Author Organization [facility] Address [address] [place] [address] Care Team Providers Care Mechanical Spreader Operator Name Role Phone Kerwin Quiroga MD Primary Care Provider +1- [phone] Encounter Details Date Type Department Care Team [...] on file Legal Sex Female 4:29 AM INSPECTOR CHIEF Gender Identity Not on file Sexual Orientation Not on file documented as of this encounter Plan of Treatment Upcoming Encounters Date Type Department Care Team (Late st Contact Info) Description 09/21/2024 11:30 AM CDT Office Visit [facility] Oncology and Hematology - Paras [address] [facility] [address] [place] [address] Nelson Cazares MD [address] [facility] [address] [place] [address] 10/04/2024 9:45 AM CDT Office Visit [facility] Orthopedic Surgery at the [facility] Medicine [address] [facility] [address] [place] [address] [place] [address] [place] [address] 12/08/2024 11:00 AM CDT Office Visit [facility] Heart and Vascular - [place] [address] [place] [address] Nam Coto MD [address] [facility] [address] [place] [address] 06/13/2025 10:00 AM CDT Appointment [facility] [place] [address] [facility] [place] [address] [place] [address] [facility] [address] [place] [address] 06/13/2025 11:05 AM CDT Office Visit [facility] Breast Surgery [place] [address] [facility] [address] [place] [address] [place] [address] [facility] [address] [place] [address] documented as of this encounter Visit Diagnoses Diagnosis Abdominal pain, unspecified site- Primary documented in this encounter Additional Health Concerns Infection Onset Date Last Indicated Resolved Time R/O COVID-19 12/28/2019 12/28/2019 12/30/2019 5:45 AM CDT COVID-19 12/28/2019 12/28/2019 01/27/2020 1:16 AM CDT documented as of this encounter Care Teams Mechanical Spreader Operator Relationship Specialty [place] [address] [place] [address] PCP - General Internal Medicine 02/18/21 documented as of this encounter
--- OUTSIDE RECORDS SUMMARY | 2024-09-12 10:36 | XMS_ITS | Encounter Summary ---
Author Organization [facility] Address [address] [facility] Attn: [place] [address] Care Team Providers Care Civil Geotechnical Engineer Name Role Phone Kerwin Quiroga MD Primary Care Provider +1- [phone] Encounter Details Date Type Department Care Team (Late st Contact Info) Description 05/29/1995 Outpatient Historical Jeremías Farias MD NO ADDRESS ON FILE Social History Tobacco Use Types Packs/Day Years Used Date Smoking Tobacco: Never Assessed Comments Unknown Sex and Gender Information Value Date Recorded Sex Assigned at Not on file Legal Sex Female 4:29 AM SHALE MINER Gender Identity Not on file Sexual Orientation Not on file documented as of this encounter Plan of Treatment Upcoming Encounters Date Type Department Care Team (Late st Contact Info) Description 09/21/2024 11:30 AM CDT Office Visit [facility] Oncology and Hematology - Paras [address] [facility] [address] [place] [address] Nelson Cazares MD [address] [facility] [address] [place] [address] 10/04/2024 9:45 AM CDT Office Visit [facility] Orthopedic Surgery at the [facility] [address] [facility] [address] [place] [address] [place] [address] [place] [address] 12/08/2024 11:00 AM CDT Office Visit [facility] Heart and Vascular - [place] [address] [place] [address] Nam Coto MD [address] [facility] [address] [place] [address] 06/13/2025 10:00 AM CDT Appointment [facility] [address] [address] [place] [address] [place] [address] [facility] [address] [place] [address] 06/13/2025 11:05 AM CDT Office Visit [facility] Breast Surgery [place]ouch [address] [place] [address] [place] [address] [facility] [address] [place] [address] documented as of this encounter Visit Diagnoses Not on filedocumented in this encounter Additional Health Concerns Infection Onset Date Last Indicated Resolved Time R/O COVID-19 12/28/2019 12/28/2019 12/30/2019 5:45 AM CDT COVID-19 12/28/2019 12/28/2019 01/27/2020 1:16 AM CDT documented as of this encounter Care Teams Civil Geotechnical Engineer Relationship Specialty [place] [address] [place] [address] PCP - General Internal Medicine 02/18/21 documented as of this encounter
[2024-09-12 10:52] LABS: Alanine Aminotransferase 15 U/L (6-35); Albumin Level 3.8 g/dL (3.5-5.1); Alkaline Phosphatase 86 U/L (38-126); Anion Gap 10 mmol/L (4-12); Aspartate Amino Transferase 47 U/L (14-36); Bilirubin,Total 0.7 mg/dL (0.2-1.3); Blood Urea Nitrogen 27 mg/dL (7-17); Calcium 8.9 mg/dL (8.4-10.2); Carbon Dioxide 29 mmol/L (22-30); Chloride 96 mmol/L (98-107); Estimated Glomerular Filt Rate 30; Glucose 165 mg/dL (65-110); Potassium 3.9 mmol/L (3.4-5.0); Sodium 135 mmol/L (137-145)
[2024-09-14 01:23] LABS: CA 15-3 5 U/mL (<32)
== END 2024-09-12 09:51 | disposition home or self-care (01) ==
LOC: ANHLAB 09:51
PROVIDERS: Visit Provider Internal Medicine Hematology & Oncology
DX: C50.911 Malignant neoplasm of unspecified site of right female breast (principal)
CPT/HCPCS: 36415; 80053; 85025; 86300

== ENCOUNTER 2025-01-26 11:15 | Outpatient (CLI) | payer MEDICARE, SELFPAY ==
--- OUTSIDE RECORDS SUMMARY | 2023-10-19 05:00 | XMS_ITS ---
Author Organization [facility] Address [address] [place] [address] Care Team Providers Care Weather Strip Mechanic Name Role Phone Johnathon Bronson Unavailable [phone] Results Component Value Reference Range Notes Culture, Urine Reviewed date:10/19/2023 12:00:00 AM Interpretation: Performing Lab: Notes/Report: CULTURE, URINE, ROUTINE SEE NOTE URINALYSIS, DIPSTICK Reviewed date:10/19/2023 12:00:00 AM Interpretation: Performing Lab: Notes/Report: Appearance Clear Bilirubin Negative Blood Negative Color Dark Yellow Glucose Negative Ketone Negative Leukocytes Negative Nitrite negative pH 5.0 Protein Negative Specific Renner 1.000 Urobilinogen .2 INFECTIOUS DISEASE PANEL Reviewed date:10/19/2023 12:00:00 AM Interpretation: Performing Lab: Notes/Report: Vital Signs Blood pressure systolic 116 mm Hg 10/19/19 24 Blood pressure diastolic 72 mm Hg 024 Height 65.50 in 10/19/2023 Weight 208.40 lbs 10/19/2023 BMI 34.2 kg/m2 10/19/2023 Height-cm 166.37 cm 10/19/2023 Weight-kg 94.53 kg 10/19/2023 Encounters Encounter Location Date Provider Diagnosis [address] [place] [address] [place] [address], [place] [address] 10/19/2023 Johnathon Bronson Anogenital pruritus, unspecified L29.3 ; Unspecified symptoms and signs involving the genitourinary system R39.9 and 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 :1955 A ge:68 Y S ex:Female Date:10/19/2023 Address:[address] [place], [place] [id number] Objective: * Vitals: H t: 65.50 in, Wt: 208.40 lbs, BMI: 34.2 Index, BP: 116/72 mm Hg, Wt-k.53 kg, Ht-cm: 166.37 cm. Vision Examination: Assessment: * Assessment: 1. A nogenital pruritus, unspecified - L29.3 2 . U nspecified symptoms and signs involving the genitourinary system - R39.9 3 . 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 Date: 0 10/19/2023 Generated for Wilbert spaulding/Kaela/Rick on: 1 12:35 PM CDT
--- OUTSIDE RECORDS SUMMARY | 2023-10-23 04:00 | XMS_ITS ---
Author Organization [facility] Address [address] [place] [address] Care Team Providers Care Records Management Clerk Name Role Phone KalebJohnathon taylor Unavailable [phone] Migration, Provider Unavailable Unavailable REASON FOR VISIT EMR-Rakesh Encounters Encounter Location Date Provider Diagnosis [facility] [address] [place] [place] [id number] 10/23/2023 Provider Migration Acute vaginitis N76. 0 Assessments Encounter Date Diagnosis (ICD Code) Assessment Notes Treatment Notes Treatment Clinical Notes Section Notes 10/23/2023 Acute vaginitis (ICD-10 - N76.0) Plan Of Treatment No Information Progress Notes * WILLIAM RUIZ EDOB:1955 (69 yo F)Acc No.[id number]:10/23/2023 Patient: WILLIAM KRUSE Provider: Leigha knight Migration :1955 A ge:68 Y S ex:Female Date:10/23/2023 Address:[address] [place], [place] [id number] Subjective: * Chief Complaints: * E MR-Rakesh Assessment: * Assessment: 1. A cute vaginitis - N76.0 * Electronic signature of Prov ider Migration on 01/26/2025 at 12:31 PM CDT Sign off status: Pending * Provider: Leigha knight Migration Date: 0 10/23/2023 Generated for Printi ng/Faxing/eTransmitting on: 1 12:31 PM CDT
--- OUTSIDE RECORDS SUMMARY | 2024-06-25 04:00 | XMS_ITS ---
Author Organization [facility] Address [address] [place] [address] Care Team Providers Care Wet Inspector Optical Glass Name Role Phone KalebJohnathon taylor Unavailable [phone] Migration, Provider Unavailable Unavailable REASON FOR VISIT EMR-Rakesh Encounters Encounter Location Date Provider Diagnosis [facility] [address] [place], [place] [address] 06/25/2024 Prov ider Migration Plan Of Treatment No Information Progress Notes * WILLIAM RUIZ EDOB:1955 (69 yo F)Acc No.[id number]:06/25/2024 Patient: Rebecca BRITOLLHUYENSagrario Zabala :1955 A ge:68 Y S ex:Female Address:[address] [place] [id number] Subjective: * Chief Complaints: * E MR-Rakesh * * Date:
--- OUTSIDE RECORDS SUMMARY | 2024-06-26 04:00 | XMS_ITS ---
Author Organization [facility] Address [address] [place], [place] [address] Care Team Providers Care Commercial Escrow Assistant Name Role Phone Johnathon Bronson Unavailable [phone] Migration, Provider Unavailable Unavailable Allergies Allergen (clinical drug ingredient) Drug/Non Drug Allergy documented on EMR Reaction Allergy Type Onset Date Status Substance with penicillin structure and antibacterial mechanism of action (substance) Penicillins Unknown Drug Allergy 08/29/2022 Active REASON FOR VISIT EMR-Rakesh Medications Medication SIG (Take, Route, Frequency, Duration) Notes Start Date End Date Status Simvastatin 40 MG Tablet Oral 10/19/2023 Active Sulfamethoxazole-Trimeth oprim 800-160 MG Tablet Oral 10/19/2023 Acti ve metFORMIN HCl ER 500 MG Tablet Extended Release 24 Hour Oral 10/19/2023 Active Trulicity 0.75 MG/0.5ML Solution Auto-injector Subcutaneous 10/19/2023 Activ e ULTRA-FINE SHORT PEN NEEDLE 31 gauge x 5/16 NEEDLE, DISPOSABLE MISCELLANEOUS *Reorder from [employer] for eRx and Interaction Alerts* 10/19/2023 Active Olmesartan Medoxomil 40 MG Tablet Oral 10/19/2023 Active Pantoprazole Sodium 40 MG Tablet Delayed Release Oral 10/19/2023 Active PARoxetine HCl 40 MG Tablet Oral 10/19/2023 Active Montelukast Sodium 10 MG Tablet Oral 10/19/2023 Active Olmesartan Medoxomil 20 MG Tablet Oral 10/19/2023 Active Levemir FlexPen 100 unit/mL (3 mL) INSULIN PEN (ML) SUBCUTANEOUS *Reorder from [facility] for eRx and Interaction Alerts* 10/19/2023 Active metFORMIN HCl 500 MG Tablet Oral 10/19/2023 Active methylPREDNISolone 4 MG Tablet Therapy Pack Oral 10/19/2023 Active metroNIDAZOLE 500 MG Tablet Oral 10/19/2023 Active Minocycline HCl 100 MG Capsule Oral 10/19/2023 Active Famotidine *Pick strength-form from [facility] for eRX* 10/19/2023 Active Famotidine 40 MG Tablet Oral 10/19/2023 Active HumaLOG KwikPen 100 UNIT/ML Solution Pen-injector Subcutaneous 10/19/2023 Active Doxycycline Monohydrate 100 MG Capsule Oral 10/19/2023 Active Esomeprazole Magnesium 40 MG Capsule Delayed Release Oral 10/19/2023 Active Baclofen 10 MG Tablet Oral 10/19/2023 Active Bactrim DS 800-160 MG Tablet Oral 10/19/2023 Active Cefdinir 300 MG Capsule Oral 10/19/2023 Active Clindamycin HCl 300 MG Capsule Oral 10/19/2023 Active Clotrimazole-Betamethaso ne 1-0.05 % Cream External 10/19/2023 Active Anastrozole 1 MG Tablet Oral 10/19/2023 Active Atenolol 50 MG Tablet Oral 10/19/2023 Active Azithromycin 250 MG Tablet Oral 10/19/2023 Active Social History Social History Additional Details Category Social Info Options Details Migrated Social History Migrated Social History Alcohol Intake: Occasional 08/29/2022,Tobacco Years: Never smoker 08/28/2022 Encounters Encounter Location Date Provider Diagnosis [facility] [address] [place], [place] [address] 06/26/2024 Prov ider Migration Plan Of Treatment No Information Progress Notes * WILLIAM RUIZ EDOB:1955 (69 yo F)Acc No.[id number]:06/26/2024 Patient: Rebecca KEVIN WILLIAM E :1955 A ge:68 Y S ex:Female Address:[address] [place] [address] Subjective: * Chief Complaints: * E MR-Rakesh * Medical History: Problems: Anxiety Fatigue Female stress incontinence History of hormone replacement (HRT) Hyperlipidemia Hypertensive disorder Lesion of vulva Type 1 diabetes mellitus * 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 * Surgical History: Cholecystectomy (25315632) Colonoscopy (65493904) Excision of lesion of labia (604082065) Hernia repair (26170041) Hysterectomy (408867732) Hysteroscopy Procedure on gallbladder (573533485) Tonsillectomy (802061809) Total knee replacement (201604499) * Family History: M igrated Family History: Unspecified Relation: Family history of diabetes mellitus type 2 .?Mother: Family history of breast cancer , Heart disease , Hypercholesterolemia , Hypertensive disorder . P aternal Grandfather: Family history of cancer of colon . * Social History: M igrated Social History: M igrated Social History: Alcohol Intake: Occasional 08/29/2022,Tobacco Years: Never smoker 08/28/2022. * Medications: T akingAnastrozole 1 MG Tablet Oral Atenolol 50 MG Tablet Oral Azithromycin 250 MG Tablet Oral Baclofen 10 MG Tablet Oral Bactrim DS 800-160 MG Tablet Oral Cefdinir 300 MG Capsule Oral Clindamycin HCl 300 MG Capsule Oral Clotrimazole-Betamethasone 1-0.05 % Cream External Doxycycline Monohydrate 100 MG Capsule Oral Esomeprazole Magnesium 40 MG Capsule Delayed Release Oral Famotidine , Notes to Pharmacist: *Pick strength-form from [employer] for eRX*Famotidine 40 MG Tablet Oral HumaLOG KwikPen 100 UNIT/ML Solution Pen-injector Subcutaneous Levemir FlexPen 100 unit/mL (3 mL) INSULIN PEN (ML) SUBCUTANEOUS , Notes to Pharmacist: *Reorder from [employer] for eRx and Interaction Alerts*metFORMIN HCl 500 MG Tablet Oral methylPREDNISolone 4 MG Tablet Therapy Pack Oral metroNIDAZOLE 500 MG Tablet Oral Minocycline HCl 100 MG Capsule Oral Montelukast Sodium 10 MG Tablet Oral Olmesartan Medoxomil 20 MG Tablet Oral Olmesartan Medoxomil 40 MG Tablet Oral Pantoprazole Sodium 40 MG Tablet Delayed Release Oral PARoxetine HCl 40 MG Tablet Oral Simvastatin 40 MG Tablet Oral Sulfamethoxazole-Trimethoprim 800-160 MG Tablet Oral metFORMIN HCl ER 500 MG Tablet Extended Release 24 Hour Oral Trulicity 0.75 MG/0.5ML Solution Auto-injector Subcutaneous ULTRA-FINE SHORT PEN NEEDLE 31 gauge x 5/16 NEEDLE, DISPOSABLE MISCELLANEOUS , Notes to Pharmacist: *Reorder from [facility] for eRx and Interaction Alerts*Taking Anastrozole 1 MG Tablet Oral Taking Atenolol 50 MG Tablet Oral Taking Azithromycin 250 MG Tablet Oral Taking Baclofen 10 MG Tablet Oral Taking Bactrim DS 800-160 MG Tablet Oral Taking Cefdinir 300 MG Capsule Oral Taking Clindamycin HCl 300 MG Capsule Oral Taking Clotrimazole-Betamethasone 1-0.05 % Cream External Taking Doxycycline Monohydrate 100 MG Capsule Oral Taking Esomeprazole Magnesium 40 MG Capsule Delayed Release Oral Taking Famotidine , Notes to Pharmacist: *Pick strength-form from [facility] for eRX*Taking Famotidine 40 MG Tablet Oral Taking HumaLOG KwikPen 100 UNIT/ML Solution Pen-injector Subcutaneous Taking Levemir FlexPen 100 unit/mL (3 mL) INSULIN PEN (ML) SUBCUTANEOUS , Notes to Pharmacist: *Reorder from [facility] for eRx and Interaction Alerts*Taking metFORMIN HCl 500 MG Tablet Oral Taking methylPREDNISolone 4 MG Tablet Therapy Pack Oral Taking metroNIDAZOLE 500 MG Tablet Oral Taking Minocycline HCl 100 MG Capsule Oral Taking Montelukast Sodium 10 MG Tablet Oral Taking Olmesartan Medoxomil 20 MG Tablet Oral Taking Olmesartan Medoxomil 40 MG Tablet Oral Taking Pantoprazole Sodium 40 MG Tablet Delayed Release Oral Taking PARoxetine HCl 40 MG Tablet Oral Taking Simvastatin 40 MG Tablet Oral Taking Sulfamethoxazole-Trimethoprim 800-160 MG Tablet Oral Taking metFORMIN HCl ER 500 MG Tablet Extended Release 24 Hour Oral Taking Trulicity 0.75 MG/0.5ML Solution Auto-injector Subcutaneous Taking ULTRA-FINE SHORT PEN NEEDLE 31 gauge x 5/16 NEEDLE, DISPOSABLE MISCELLANEOUS , Notes to Pharmacist: *Reorder from [facility] for eRx and Interaction Alerts* * Allergies: P enicillins: Allergy - Onset Date 08/29/2022 * * Date:
[2025-01-26 11:33] LABS: Hematocrit 40.6 % (37.0-47.0); Hemoglobin 12.1 g/dL (12.0-15.0); Immature Granulocyte Percent A 0.2 % (0-0.5); Lymphocytes Absolute Auto 1.70 K/mm3 (0.9-3.2); Mean Corpuscular HGB Conc 29.8 g/dl (32-36); Mean Corpuscular Hemoglobin 25.1 pg (26-34); Mean Corpuscular Volume 84.1 fl (80-100); Nucleated Red Blood Cells Absolute Auto 0.000 K/mm3 (0.0-0.012); Nucleated Red Blood Cells Perc 0.0 % (0.0-0.2); Platelet Count Result 273 k/mm3 (150-375); Red Blood Count 4.83 M/mm3 (4.2-5.4); White Blood Count 9.5 K/mm3 (4.5-10.0)
[2025-01-26 11:36] LABS: Schistocytes None Seen
[2025-01-26 11:39] LABS: Hypochromasia 1+
--- OUTSIDE RECORDS SUMMARY | 2025-01-26 12:31 | XMS_ITS | Encounter Summary ---
Author Organization [facility] Address [address] [facility] Attn: [place] [address] Care Team Providers Care Laborer Aquatic Life Name Role Phone VishnuAmarjit dillon Primary Care Provide r Encounter Details Date Type Department Care Team (Late st Contact Info) Description 05/29/1995 Outpatient Historical Jeremías Farias MD NO ADDRESS ON FILE Social History Tobacco Use Types Packs/Day Years Used Date Smoking Tobacco: Never Assessed Comments Unknown Sex and Gender Information Value Date Recorded Sex Assigned at Not on file Legal Sex Female 4:29 AM QA SOFTWARE TESTER Gender Identity Not on file Sexual Orientation Not on file documented as of this encounter Plan of Treatment Upcoming Encounters Date Type Department Care Team (Late st Contact Info) Description 04/18/2025 2:45 PM QA SOFTWARE TESTER Office Visit [facility] Surgery at the [facility] [address] [facility] [address] [place] [address] [place] [address] [place] [address] 05/04/2025 2:45 PM QA SOFTWARE TESTER Office Visit [facility] Oncology and Hematology - Paras [address] [place] [address] Nelson Cazares MD [address] [facility] [address] [place] [address] 06/13/2025 10:[address] [facility] [place] [address] [place] [address] [place] [address] [place] [address] 06/13/2025 11:05 AM CDT Office Visit [facility] Breast Surgery [place]ouch [address] [place] [address] [place] [address] [place] [address] 07/13/2025 10:00 AM CDT Office Visit [facility] Endocrinology [address] [place] [address] Shanice Llamas MD [address] [place] [address] 12/14/2025 11:00 AM CDT Office Visit [facility] Heart and Vascular - [facility] [address] [place] [address] Nam Coto MD [address] [facility] [address] [place] [address] documented as of this encounter Visit Diagnoses Not on filedocumented in this encounter Additional Health Concerns Infection Onset Date Last Indicated Resolved Time R/O COVID-19 12/28/2019 12/28/2019 12/30/2019 5:45 AM CDT COVID-19 12/28/2019 12/28/2019 01/27/2020 1:16 AM CDT documented as of this encounter Care Teams Laborer Aquatic Life Relationship Specialty [place] [address] [facility] [address] [place] [address] PCP - General 01/02/25 documented as of this encounter
--- OUTSIDE RECORDS SUMMARY | 2025-01-26 12:31 | XMS_ITS | Encounter Summary ---
Author Organization [facility] Address [address] [facility] Attn: Epic Prelude [place] [address] Care Team Providers Care Knock Out Hand Name Role Phone VishnuAmarjit dillon Primary Care [...] on file Legal Sex Female 4:29 AM FORMING MACHINE OPERATOR Gender Identity Not on file Sexual Orientation Not on file documented as of this encounter Plan of Treatment Upcoming Encounters Date Type Department Care Team (Late st Contact Info) Description 04/18/2025 2:45 PM FORMING MACHINE OPERATOR Office Visit [facility] Surgery at the [facility] [address] [facility] [address] [place] [address] [place] [address] [place] [address] 05/04/2025 2:45 PM FORMING MACHINE OPERATOR Office Visit [facility] Oncology and Hematology - Paras [address] [place] [address] Nelson Cazares MD [address] [facility] [address] [place] [address] 06/13/2025 10:00 AM CDT Appointment [facility] [address] [place] [address] [place] [address] [place] [address] 06/13/2025 11:05 AM CDT Office Visit [facility] Breast Surgery [place] [address] [place] [address] [place] [address] [place] [address] 07/13/2025 10:00 AM CDT Office Visit [facility] Endocrinology [address] [facility] [address] [place] [address] Shanice Llamas MD [address] [facility] [address] [place] [address] 12/14/2025 11:00 AM CDT Office Visit [facility] Heart and Vascular - [facility] [address] [facility] [address] [place] [address] Nam Coto MD [address] [facility] [address] [place] [address] documented as of this encounter Visit Diagnoses Not on filedocumented in this encounter Additional Health Concerns Infection Onset Date Last Indicated Resolved Time R/O COVID-19 12/28/2019 12/28/2019 12/30/2019 5:45 AM CDT COVID-19 12/28/2019 12/28/2019 01/27/2020 1:16 AM CDT documented as of this encounter Care Teams Knock Out Hand Relationship Specialty [place] [address] [facility] [address] [place] [address] PCP - General 01/02/25 documented as of this encounter
--- OUTSIDE RECORDS SUMMARY | 2025-01-26 12:31 | XMS_ITS | Encounter Summary ---
Author Organization [facility] Address [address] [place] [address] Care Team Providers Care Economics Professor Name Role Phone VishnuAmarjit dillon Primary Care [...] file Legal Sex Female 4:29 AM MANAGER FURNITURE Gender Identity Not on file Sexual Orientation Not on file documented as of this encounter Plan of Treatment Upcoming Encounters Date Type Department Care Team (Late st Contact Info) Description 04/18/2025 2:45 PM MANAGER FURNITURE Office Visit [facility] Orthopedic Surgery at the [facility] [address] [facility] [address] [place] [address] [place] [address] [place] [address] 05/04/2025 2:45 PM MANAGER FURNITURE Office Visit [facility] Oncology and Hematology - Paras [address] [facility] [address] [place] [address] Nelson Cazares MD [address] [facility] [address] [place] [address] 06/13/2025 10:00 AM CDT Appointment [facility] [place] [address] [place] [address] [place] [address] [facility] [address] [place] [address] 06/13/2025 11:05 AM CDT Office Visit [facility] Breast Surgery [place] [address] [place] [address] [place] [address] [facility] [address] [place] [address] 07/13/2025 10:00 AM CDT Office Visit [facility] Endocrinology [address] [facility] [address] [place] [address] Shanice Llamas MD [address] [facility] [address] [place] [address] 12/14/2025 11:00 AM CDT Office Visit [facility] Heart and Vascular - [facility] [address] [facility] [address] [place] [address] Nam Coto MD [address] [facility] [address] [place] [address] documented as of this encounter Visit Diagnoses Diagnosis Chondromalacia of patella- Primary documented in this encounter Additional Health Concerns Infection Onset Date Last Indicated Resolved Time R/O COVID-19 12/28/2019 12/28/2019 12/30/2019 5:45 AM CDT COVID-19 12/28/2019 12/28/2019 01/27/2020 1:16 AM CDT documented as of this encounter Care Teams Economics Professor Relationship Specialty [place] [address] [facility] [address] [place] [address] PCP - General 01/02/25 documented as of this encounter
--- OUTSIDE RECORDS SUMMARY | 2025-01-26 12:31 | XMS_ITS | Encounter Summary ---
Author Organization [facility] Address [address] [facility] Attn: Epic Prelude [place] [address] Care Team Providers Care Refining Engineer Name Role Phone VishnuAmarjit dillon Primary Care Provide r Encounter Details Date Type Department Care Team (Late st Contact Info) Description 03/25/1994 Outpatient Historical Jeremías Farias MD NO ADDRESS ON FILE Social History Tobacco Use Types Packs/Day Years Used Date Smoking Tobacco: Never Assessed Comments Unknown Sex and Gender Information Value Date Recorded Sex Assigned at Not on file Legal Sex Female 4:29 AM FRENCH WEAVER Gender Identity Not on file Sexual Orientation Not on file documented as of this encounter Plan of Treatment Upcoming Encounters Date Type Department Care Team (Late st Contact Info) Description 04/18/2025 2:45 PM FRENCH WEAVER [facility] the [facility] [address] [facility] [address] [place] [address] [place] [address] [place] [address] 05/04/2025 2:45 PM FRENCH WEAVER [facility] Oncology [facility] Hematology - Paras [address] [place] [address] Nelson Cazares MD [address] [facility] [address] [place] [address] 06/13/2025 10:00 AM CDT Appointment [facility] [address] [place] [phone] [place] [address] [place] [phone] 06/13/2025 11:05 AM CDT Office [facility] Breast Surgery [place] [address] [place] [address] [place] [address] [place] [address] 07/13/2025 10:00 AM CDT [facility] Endocr[facility]ology [address] [place] [address] Shanice Llamas MD [address] [place] [address] 12/14/2025 11:00 AM CDT [facility] - [facility] [employer] [facility] [address] [place] [address] Nam Coto MD [address] [facility] [address] [place] [address] documented as of this encounter Visit Diagnoses Not on filedocumented in this encounter Additional Health Concerns Infection Onset Date Last Indicated Resolved Time R/O COVID-19 12/28/2019 12/28/2019 12/30/2019 5:45 AM CDT COVID-19 12/28/2019 12/28/2019 01/27/2020 1:16 AM CDT documented as of this encounter Care Teams Refining Engineer Relationship Specialty [place] [address] [facility] [address] [place] [address] PCP - General 01/02/25 documented as of this encounter
--- OUTSIDE RECORDS SUMMARY | 2025-01-26 12:31 | XMS_ITS | Encounter Summary ---
Author Organization [facility] Address [address] [place] [address] Care Team Providers Care Medicare Insurance Specialist Name Role Phone Amarjit Mares Primary Care Provide r Encounter Details Date [...] on file Legal Sex Female 4:29 AM WINDSMITH Gender Identity Not on file Sexual Orientation Not on file documented as of this encounter Plan of Treatment Upcoming Encounters Date Type Department Care Team (Late st Contact Info) Description 04/18/2025 2:45 PM WINDSMITH Office Visit [facility] Orthopedic Surgery at the [facility] [address] [facility] [address] [place] [address] [place] [address] [place] [address] 05/04/2025 2:45 PM WINDSMITH Office Visit [facility] Oncology and Hematology - Paras [address] [place] [address] Nelson Cazares MD [address] [facility] [address] [place] [address] 06/13/2025 10:00 AM CDT Appointment [facility] [place] [address] [place] [phone] [place] [address] [place] [address] 06/13/2025 11:05 AM CDT Office Visit [facility] Breast Surgery [place] [address] [place] [address] [place] [address] [facility] [address] [place] [address] 07/13/2025 10:00 AM CDT Office Visit [facility] Endocrinology [address] [facility] [address] [place] [address] Shanice Llamas MD [address] [facility] [address] [place] [address] 12/14/2025 11:00 AM CDT Office Visit [facility] Heart and Vascular - [facility] [address] [place] [address] Nam Coto MD [address] [facility] [address] [place] [address] documented as of this encounter Visit Diagnoses Diagnosis Tear of lateral cartilage or meniscus of knee, current- Primary documented in this encounter Additional Health Concerns Infection Onset Date Last Indicated Resolved Time R/O COVID-19 12/28/2019 12/28/2019 12/30/2019 5:45 AM CDT COVID-19 12/28/2019 12/28/2019 01/27/2020 1:16 AM CDT documented as of this encounter Care Teams Medicare Insurance Specialist Relationship Specialty [place] [address] [facility] [address] [place] [address] PCP - General 01/02/25 documented as of this encounter
--- OUTSIDE RECORDS SUMMARY | 2025-01-26 12:31 | XMS_ITS | Encounter Summary ---
Author Organization [facility] Address [address] [place] [address] Care Team Providers Care Wool Buyer Name Role Phone Amarjit Mares Primary Care Provide r Encounter Details Date Type Department Care Team (Late Contact Info) Description 07/18/1999 Outpatient Historical [facility] Jeremías Farias MD NO ADDRESS ON FILE Social History Tobacco Use Types Packs/Day Years Used Date Smoking Tobacco: Never Assessed Comments Unknown Sex and Gender Information Value Date Recorded Sex Assigned at Not on file Legal Sex Female 4:29 AM ROLLING CHAIR PUSHER Gender Identity Not on file Sexual Orientation Not on file documented as of this encounter Plan of Treatment Upcoming Encounters Date Type Department Care Team (Late Contact Info) Description 04/18/2025 2:45 PM ROLLING CHAIR PUSHER Office Visit [facility] Orthopedic Surgery at the [facility] [address] [facility] [address] [place] [address] [place] [address] [place] [address] 05/04/2025 2:45 PM ROLLING CHAIR PUSHER Office Visit [facility] Oncology and Hematology - Paras [address] [place] [address] Nelson Cazares MD [address] [facility] [address] [place] [address] 06/13/2025 10:00 AM CDT Appointment [facility] [address] [place] [phone] [place] [address] [place] [phone] 06/13/2025 11:05 AM CDT Office Visit [facility] Breast Surgery [place] [address] [place] [phone] [place] [address] [place] [address] 07/13/2025 10:00 AM CDT Office Visit [facility] Endocrinology [address] [place] [address] Shanice Llamas MD [address] [place] [address] 12/14/2025 11:00 AM CDT Office Visit [facility] Heart and Vascular - [facility] [address] [place] [address] Nam Coto MD [address] [facility] [address] [place] [address] documented as of this encounter Visit Diagnoses Not on filedocumented in this encounter Additional Health Concerns Infection Onset Date Last Indicated Resolved Time R/O COVID-19 12/28/2019 12/28/2019 12/30/2019 5:45 AM CDT COVID-19 12/28/2019 12/28/2019 01/27/2020 1:16 AM CDT documented as of this encounter Care Teams Wool Buyer Relationship Specialty [place] [address] [place] [address] PCP - General 01/02/25 documented as of this encounter
--- OUTSIDE RECORDS SUMMARY | 2025-01-26 12:31 | XMS_ITS | Encounter Summary ---
Author Organization [facility] Address [address] [place] [address] Care Team Providers Care Business Improvement Manager Name Role Phone Amarjit Mares Primary Care Provide r Encounter Details Date Type Department Care Team (Late Contact Info) Description 02/10/2000 Outpatient Historical [facility] Jeremías Farias MD NO ADDRESS ON FILE Social History Tobacco Use Types Packs/Day Years Used Date Smoking Tobacco: Never Assessed Comments Unknown Sex and Gender Information Value Date Recorded Sex Assigned at Not on file Legal Sex Female 4:29 AM FILM PRODUCER Gender Identity Not on file Sexual Orientation Not on file documented as of this encounter Plan of Treatment Upcoming Encounters Date Type Department Care Team (Late Contact Info) Description 04/18/2025 2:45 PM FILM PRODUCER Office Visit [facility] at the [facility] [address] [facility] [address] [place] [address] [place] [address] [place] [address] 05/04/2025 2:45 PM FILM PRODUCER Office Visit [facility] Oncology and Hematology - Paras [address] [place] [address] Nelson Cazares MD [address] [facility] [address] [place] [address] 06/13/2025 10:00 AM CDT Appointment [facility] [address] [facility] [place] [phone] [place] [address] [place] [phone] 06/13/2025 11:05 AM CDT Office Visit [facility] Breast Surgery [place] [address] [place] [phone] [place] [address] [place] [address] 07/13/2025 10:00 AM CDT Office Visit [facility] Endocrinology [address] [place] [address] Shanice Llamas MD [address] [place] [address] 12/14/2025 11:00 AM CDT Office Visit [facility] Heart and Vascular - [facility] [address] [place] [address] Nam Coto MD [address] [facility] [address] [place] [address] documented as of this encounter Visit Diagnoses Not on filedocumented in this encounter Additional Health Concerns Infection Onset Date Last Indicated Resolved Time R/O COVID-19 12/28/2019 12/28/2019 12/30/2019 5:45 AM CDT COVID-19 12/28/2019 12/28/2019 01/27/2020 1:16 AM CDT documented as of this encounter Care Teams Business Improvement Manager Relationship Specialty [place] [address] [place] [address] PCP - General 01/02/25 documented as of this encounter
--- OUTSIDE RECORDS SUMMARY | 2025-01-26 12:31 | XMS_ITS | Encounter Summary ---
Author Organization [facility] Address [address] [place] [address] Care Team Providers Care Binder Selector Name Role Phone Amarjit Mares Primary Care Provide r Encounter Details Date Type Department Care Team (Latest Contact Info) Description 05/29/1999 Outpatient Historical HIS [facility] Jeremías Torres MD NO ADDRESS ON FILE Other abnormal blood chemistry (Primary Dx) Social History Tobacco Use Types Packs/Day Years Used Date Smoking Tobacco: Never Assessed Comments Unknown Sex and Gender Information Value Date Recorded Sex Assigned at Not on file Legal Sex Female 4:29 AM EXECUTIVE ASSISTANT Gender Identity Not on file Sexual Orientation Not on file documented as of this encounter Plan of Treatment Upcoming Encounters Date Type Department Care Team (Late st Contact Info) Description 04/18/2025 2:45 PM EXECUTIVE ASSISTANT Office Visit [facility] Orthopedic Surgery at the [facility] [address] [facility] [place] [address] [place] [address] [place] [address] 05/04/2025 2:45 PM EXECUTIVE ASSISTANT Office Visit [facility] Oncology and Hematology - Paras [address] [facility] [address] [place] [address] Nelson Cazares MD [address] [facility] [address] [place] [address] 06/13/2025 10:00 AM CDT Appointment [facility] [address] [address] [place] [phone] [place] [address] [place] [address] 06/13/2025 11:05 AM CDT Office Visit [facility] Breast Surgery [place] [address] [place] [address] [place] [address] [place] [address] 07/13/2025 10:00 AM CDT Office Visit [facility] Endocrinology [address] [place] [address] Shanice Llamas MD [address] [place] [address] 12/14/2025 11:00 AM CDT Office Visit [facility] Heart and Vascular - [facility] [address] [place] [address] Nam Coto MD [address] [facility] [address] [place] [address] documented as of this encounter Visit Diagnoses Diagnosis Other abnormal blood chemistry- Primary documented in this encounter Additional Health Concerns Infection Onset Date Last Indicated Resolved Time R/O COVID-19 12/28/2019 12/28/2019 12/30/2019 5:45 AM CDT COVID-19 12/28/2019 12/28/2019 01/27/2020 1:16 AM CDT documented as of this encounter Care Teams Binder Selector Relationship Specialty [place] [address] [facility] [address] [place] [address] PCP - General 01/02/25 documented as of this encounter
--- OUTSIDE RECORDS SUMMARY | 2025-01-26 12:31 | XMS_ITS | Encounter Summary ---
Author Organization [facility] Address [address] [place] [address] Care Team Providers Care Truck Manager Name Role Phone Amarjit Mares Primary Care Provide r Encounter Details Date Type Department Care Team (Late Contact Info) Description 05/29/1999 Outpatient Historical HIS G [facility] INTER[facility] Jeremías Farias MD NO ADDRESS ON FILE Social History Tobacco Use Types Packs/Day Years Used Date Smoking Tobacco: Never Assessed Comments Unknown Sex and Gender Information Value Date Recorded Sex Assigned at Not on file Legal Sex Female 4:29 AM GLASS CALIBRATOR Gender Identity Not on file Sexual Orientation Not on file documented as of this encounter Plan of Treatment Upcoming Encounters Date Type Department Care Team (Late Contact Info) Description 04/18/2025 2:45 PM GLASS CALIBRATOR Office Visit [facility] Orthopedic Surgery at the [facility] [address] [facility] [address] [place] [address] [place] [address] [place] [address] [place] [address] 05/04/2025 2:45 PM GLASS CALIBRATOR Office Visit [facility] Oncology and Hematology - Paras [address] [place] [address] Nelson Cazares MD [address] [facility] [address] [place] [address] 06/13/2025 10:00 AM CDT Appointment [facility] [address] [place] [phone] [place] [address] [place] [phone] 06/13/2025 11:05 AM CDT Office Visit [facility] Breast Surgery [place] [address] [place] [phone] [place] [address] [place] [address] 07/13/2025 10:00 AM CDT Office Visit [facility] Endocrinology [address] [place] [address] Shanice Llamas MD [address] [place] [address] 12/14/2025 11:00 AM CDT Office Visit [facility] Heart and Vascular - [facility] [address] [place] [address] Nam Coto MD [address] [facility] [address] [place] [address] documented as of this encounter Visit Diagnoses Not on filedocumented in this encounter Additional Health Concerns Infection Onset Date Last Indicated Resolved Time R/O COVID-19 12/28/2019 12/28/2019 12/30/2019 5:45 AM CDT COVID-19 12/28/2019 12/28/2019 01/27/2020 1:16 AM CDT documented as of this encounter Care Teams Truck Manager Relationship Specialty [place] [address] [place] [address] PCP - General 01/02/25 documented as of this encounter
--- OUTSIDE RECORDS SUMMARY | 2025-01-26 12:31 | XMS_ITS | Encounter Summary ---
Author Organization [facility] Address [address] [place] [address] Care Team Providers Care Head Inspector And Center Marker Name Role Phone Amarjit Mares Primary Care Provide r Encounter Details Date Type Department Care Team (Latest Contact Info) Description 04/02/1999 Outpatient Historical HIS [facility] Jeremías Torres MD NO ADDRESS ON FILE Essential hypertension, benign (Primary Dx) Social History Tobacco Use Types Packs/Day Years Used Date Smoking Tobacco: Never Assessed Comments Unknown Sex and Gender Information Value Date Recorded Sex Assigned at Not on file Legal Sex Female 4:29 AM CLIENT SERVICE ADMINISTRATOR Gender Identity Not on file Sexual Orientation Not on file documented as of this encounter Plan of Treatment Upcoming Encounters Date Type Department Care Team (Late st Contact Info) Description 04/18/2025 2:45 PM CLIENT SERVICE ADMINISTRATOR Office Visit [facility] Orthopedic Surgery at the [facility] [address] [facility] [address] [place] [address] [place] [address] [place] [address] 05/04/2025 2:45 PM CLIENT SERVICE ADMINISTRATOR Office Visit [facility] Oncology and Hematology - Paras [address] [place] [address] Nelson Cazares MD [address] [facility] [address] [place] [address] 06/13/2025 10:00 AM CDT Appointment [facility] [place] [address] [place] [phone] [place] [address] [place] [address] 06/13/2025 11:05 AM CDT Office Visit [facility] Breast Surgery [place] [address] [place] [address] [place] [address] [place] [address] 07/13/2025 10:00 AM CDT Office Visit [facility] Endocrinology [address] [place] [address] Shanice Llamas MD [address] [place] [address] 12/14/2025 11:00 AM CDT Office Visit [facility] Heart and Vascular - [facility] [employer] [facility] [address] [facility] [address] [facility] [facility] [address] [place] [address] Nam Coto MD [address] [facility] [address] [place] [address] documented as of this encounter Visit Diagnoses Diagnosis Essential hypertension, benign- Primary documented in this encounter Additional Health Concerns Infection Onset Date Last Indicated Resolved Time R/O COVID-19 12/28/2019 12/28/2019 12/30/2019 5:45 AM CDT COVID-19 12/28/2019 12/28/2019 01/27/2020 1:16 AM CDT documented as of this encounter Care Teams Head Inspector And Center Marker Relationship Specialty Start [place] [address] [facility] [address] [place] [address] PCP - General 01/02/25 documented as of this encounter
--- OUTSIDE RECORDS SUMMARY | 2025-01-26 12:31 | XMS_ITS | Encounter Summary ---
Author Organization [facility] Address [address] [place] [address] Care Team Providers Care Signal Maintainer Helper Name Role Phone Amarjit Mares Primary Care Provide r Encounter Details Date Type Department Care Team (Late Contact Info) Description 04/02/1999 Outpatient Historical [facility] Jeremías Farias MD NO ADDRESS ON FILE Social History Tobacco Use Types Packs/Day Years Used Date Smoking Tobacco: Never Assessed Comments Unknown Sex and Gender Information Value Date Recorded Sex Assigned at Not on file Legal Sex Female 4:29 AM CLOTH SHRINKING MACHINE OPERATOR HELPER Gender Identity Not on file Sexual Orientation Not on file documented as of this encounter Plan of Treatment Upcoming Encounters Date Type Department Care Team (Late Contact Info) Description 04/18/2025 2:45 PM CLOTH SHRINKING MACHINE OPERATOR HELPER Office Visit [facility] Orthopedic Surgery at the [facility] [address] [facility] [address] [place] [address] [place] [address] [place] [address] 05/04/2025 2:45 PM CLOTH SHRINKING MACHINE OPERATOR HELPER Office Visit [facility] Oncology and Hematology - Paras [address] [place] [address] Nelson Cazares MD [address] [facility] [address] [place] [address] 06/13/2025 10:[address] [facility] [address] [facility] [place] [phone] [place] [address] [place] [address] 06/13/2025 11:05 AM CDT Office Visit [facility] Breast Surgery [address] [place] [phone] [place] [address] [place] [address] 07/13/2025 10:00 AM CDT Office Visit [facility] Endocrinology [address] [place] [address] Shanice Llamas MD [address] [place] [address] 12/14/2025 11:00 AM CDT Office Visit [facility] Heart and Vascular - [facility] [address] [place] [address] Nam Coto MD [address] [facility] [address] [place] [address] documented as of this encounter Visit Diagnoses Not on filedocumented in this encounter Additional Health Concerns Infection Onset Date Last Indicated Resolved Time R/O COVID-19 12/28/2019 12/28/2019 12/30/2019 5:45 AM CDT COVID-19 12/28/2019 12/28/2019 01/27/2020 1:16 AM CDT documented as of this encounter Care Teams Signal Maintainer Helper Relationship Specialty [place] [address] [place] [address] PCP - General 01/02/25 documented as of this encounter
--- OUTSIDE RECORDS SUMMARY | 2025-01-26 12:31 | XMS_ITS | Encounter Summary ---
Author Organization [facility] Address [address] [place] [address] Care Team Providers Care Forklift Technician Name Role Phone Amarjit Mares Primary Care Provide r Encounter Details Date Type Department Care Team (Latest Contact Info) Description 05/03/1998 Outpatient Historical HIS [facility] Jeremías Torres MD NO ADDRESS ON FILE Abdominal pain, unspecified site (Primary Dx) Social History Tobacco Use Types Packs/Day Years Used Date Smoking Tobacco: Never Assessed Comments Unknown Sex and Gender Information Value Date Recorded Sex Assigned at Not on file Legal Sex Female 4:29 AM TRAFFIC I MANAGER Gender Identity Not on file Sexual Orientation Not on file documented as of this encounter Plan of Treatment Upcoming Encounters Date Type Department Care Team (Late st Contact Info) Description 04/18/2025 2:45 PM TRAFFIC I MANAGER Office Visit [facility] Orthopedic Surgery at the [facility] [address] [facility] [address] [place] [address] [place] [address] [place] [address] 05/04/2025 2:45 PM TRAFFIC I MANAGER Office Visit [facility] Oncology and Hematology - Paras [address] [place] [address] Nelson Cazares MD [address] [facility] [address] [place] [address] 06/13/2025 10:00 AM CDT Appointment [facility] [address] [place] [address] [place] [address] [place] [address] 06/13/2025 11:05 AM CDT Office Visit [facility] Breast Surgery [place] [address] [place] [address] [place] [address] [place] [address] 07/13/2025 10:00 AM CDT Office Visit [facility] Endocrinology [address] [place] [address] Shanice Llamas MD [address] [facility] [address] [place] [address] 12/14/2025 11:00 AM CDT Office Visit [facility] Heart and Vascular - [facility] [address] [place] [address] Nam Coto MD [address] [facility] [address] [place] [address] documented as of this encounter Visit Diagnoses Diagnosis Abdominal pain, unspecified site- Primary documented in this encounter Additional Health Concerns Infection Onset Date Last Indicated Resolved Time R/O COVID-19 12/28/2019 12/28/2019 12/30/2019 5:45 AM CDT COVID-19 12/28/2019 12/28/2019 01/27/2020 1:16 AM CDT documented as of this encounter Care Teams Forklift Technician Relationship Specialty [place] [address] [address] [place] [address] PCP - General 01/02/25 documented as of this encounter
--- OUTSIDE RECORDS SUMMARY | 2025-01-26 12:31 | XMS_ITS | Encounter Summary ---
Author Organization [facility] Address [address] [place] [address] Care Team Providers Care Manager Hair Name Role Phone Amarjit Mares Primary Care Provide r Encounter Details Date Type Department Care Team (Latest Contact Info) Description 07/18/1999 Outpatient Historical HIS [facility] Jeremías Torres MD NO ADDRESS ON FILE Type II or unspecified type diabetes mellitus without mention of complication, not stated as uncontrolled (Primary Dx) Social History Tobacco Use Types Packs/Day Years Used Date Smoking Tobacco: Never Assessed Comments Unknown Sex and Gender Information Value Date Recorded Sex Assigned at Not on file Legal Sex Female 4:29 AM CORPSMAN Gender Identity Not on file Sexual Orientation Not on file documented as of this encounter Plan of Treatment Upcoming Encounters Date Type Department Care Team (Late st Contact Info) Description 04/18/2025 2:45 PM CORPSMAN Office Visit [facility] Orthopedic Surgery at the [facility] [address] [facility] [address] [place] [address] [place] [address] [place] [address] 05/04/2025 2:45 PM CORPSMAN Office Visit [facility] Oncology and Hematology - Paras [address] [place] [address] Nelson Cazares MD [address] [facility] [address] [place] [address] 06/13/2025 10:00 AM CDT Appointment [facility] [address] [place] [address] [place] [address] [facility] [address] [place] [address] 06/13/2025 11:05 AM CDT Office Visit [facility] Breast Surgery [place] [address] [place] [address] [place] [address] [facility] [address] [place] [address] 07/13/2025 10:00 AM CDT Office Visit [facility] Endocrinology [address] [facility] [address] [place] [address] Shanice Llamas MD [address] [facility] [address] [place] [address] 12/14/2025 11:00 AM CDT Office Visit [facility] Heart and Vascular - [facility] [address] [place] [address] Nam Coto MD [address] [facility] [address] [place] [address] documented as of this encounter Visit Diagnoses Diagnosis Type II or unspecified type diabetes mellitus without mention of complication, not stated as uncontrolled- Primary documented in this encounter Additional Health Concerns Infection Onset Date Last Indicated Resolved Time R/O COVID-19 12/28/2019 12/28/2019 12/30/2019 5:45 AM CDT COVID-19 12/28/2019 12/28/2019 01/27/2020 1:16 AM CDT documented as of this encounter Care Teams Manager Hair Relationship Specialty Start Date [place]arjit [place] [address] [place] [address] [address] [place] [address] PCP - General 01/02/25 documented as of this encounter
--- OUTSIDE RECORDS SUMMARY | 2025-01-26 12:31 | XMS_ITS | Encounter Summary ---
Author Organization [facility] Address [address] [facility] Attn: Epic Prelude ADT [place] [address] Care Team Providers Care Pcts Name Role Phone VishnuAmarjit dillon Primary Care [...] on file Legal Sex Female 4:29 AM BLAST FURNACE KEEPER HELPER Gender Identity Not on file Sexual Orientation Not on file documented as of this encounter Plan of Treatment Upcoming Encounters Date Type Department Care Team (Late st Contact Info) Description 04/18/2025 2:45 PM BLAST FURNACE KEEPER HELPER Office Visit [facility] Orthopedic Surgery at the [facility] [address] [facility] [address] [place] [address] [place] [address] [place] [address] 05/04/2025 2:45 PM BLAST FURNACE KEEPER HELPER Office Visit [facility] Oncology and Hematology - Paras [address] [place] [address] Nelson Cazares MD [address] [facility] [address] [place] [address] 06/13/2025 10:[address] [facility] [address] [place] [address] [place] [address] [place] [address] 06/13/2025 11:05 AM CDT Office Visit [facility] Breast Surgery [place] [address] [place] [address] [place] [address] [place] [address] 07/13/2025 10:00 AM CDT Office Visit [facility] Endocrinology [address] [place] [address] Shanice Llamas MD [address] [place] [address] 12/14/2025 11:00 AM CDT Office Visit [facility] Heart and Vascular - [facility] [address] [place] [address] Nam Coto MD [address] [facility] [address] [place] [address] documented as of this encounter Visit Diagnoses Not on filedocumented in this encounter Additional Health Concerns Infection Onset Date Last Indicated Resolved Time R/O COVID-19 12/28/2019 12/28/2019 12/30/2019 5:45 AM CDT COVID-19 12/28/2019 12/28/2019 01/27/2020 1:16 AM CDT documented as of this encounter Care Teams Pcts Relationship Specialty [place] [address] [facility] [address] [place] [address] PCP - General 01/02/25 documented as of this encounter
--- OUTSIDE RECORDS SUMMARY | 2025-01-26 12:31 | XMS_ITS | Encounter Summary ---
Author Organization [facility] Address [address] [facility] Attn: Epic [place] [address] Care Team Providers Care Coding Specialist Name Role Phone VishnuAmarjit dillon Primary Care Provide r Encounter Details Date Type Department Care Team (Late st Contact Info) Description 01/03/1991 Outpatient Historical Jeremías Farias MD NO ADDRESS ON FILE Social History Tobacco Use Types Packs/Day Years Used Date Smoking Tobacco: Never Assessed Comments Unknown Sex and Gender Information Value Date Recorded Sex Assigned at Not on file Legal Sex Female 4:29 AM R D MANAGER Gender Identity Not on file Sexual Orientation Not on file documented as of this encounter Plan of Treatment Upcoming Encounters Date Type Department Care Team (Late st Contact Info) Description 04/18/2025 2:45 PM R D MANAGER Office Visit [facility] at the [facility] [address] [facility] [place] [address] [place] [address] [place] [address] 05/04/2025 2:45 PM R D MANAGER Office Visit [facility]3] Oncology and Hematology - Paras [address] [place] [address] Nelson Cazares MD [address] [facility] [address] [place] [address] 06/13/2025 10:00 AM CDT Appointment [facility] [address] [place] [address] [place] [address] [place] [address] 06/13/2025 11:05 AM CDT Office Visit [facility] Breast Surgery [place] [address] [place] [address] [place] [address] [place] [address] 07/13/2025 10:00 AM CDT Office Visit [facility]3] Endocrinology [address] [place] [address] Shanice Llamas MD [address] [place] [address] 12/14/2025 11:00 AM CDT Office Visit [facility]3] Heart and Vascular - [facility] [address] [place] [address] Nam Coto MD [address] [facility] [address] [place] [address] documented as of this encounter Visit Diagnoses Not on filedocumented in this encounter Additional Health Concerns Infection Onset Date Last Indicated Resolved Time R/O COVID-19 12/28/2019 12/28/2019 12/30/2019 5:45 AM CDT COVID-19 12/28/2019 12/28/2019 01/27/2020 1:16 AM CDT documented as of this encounter Care Teams Coding Specialist Relationship Specialty [place] [address] [facility] [address] [place] [address] PCP - General 01/02/25 documented as of this encounter
--- OUTSIDE RECORDS SUMMARY | 2025-01-26 12:31 | XMS_ITS | Encounter Summary ---
Author Organization [facility] Address [address] [place] [address] Care Team Providers Care Emergency Nurse Name Role Phone Amarjit Mares Primary Care Provide r Encounter Details Date Type Department Care Team (Late Contact Info) Description 10/24/1999 Outpatient Historical HIS [facility] Jeremías Farias MD NO ADDRESS ON FILE Social History Tobacco Use Types Packs/Day Years Used Date Smoking Tobacco: Never Assessed Comments Unknown Sex and Gender Information Value Date Recorded Sex Assigned at Not on file Legal Sex Female 4:29 AM BUTCHER CHICKEN AND FISH Gender Identity Not on file Sexual Orientation Not on file documented as of this encounter Plan of Treatment Upcoming Encounters Date Type Department Care Team (Late Contact Info) Description 04/18/2025 2:45 PM BUTCHER CHICKEN AND FISH Office Visit [facility] Orthopedic Surgery at the [facility] [address] [facility] [address] [place] [address] [place] [address] [place] [address] 05/04/2025 2:45 PM BUTCHER CHICKEN AND FISH Office Visit [facility] Oncology and Hematology - Paras [address] [place] [address] Nelson Cazares MD [address] [facility] [address] [place] [address] 06/13/2025 10:00 AM CDT Appointment [facility] [address] [place] [address] [place] [address] [place] [address] 06/13/2025 11:05 AM CDT Office Visit [facility] Breast Surgery [place] [address] [place] [address] [place] [address] [place] [address] 07/13/2025 10:00 AM CDT Office Visit [facility] Endocrinology [address] [facility] [address] [place] [address] Shanice Llamas MD [address] [facility] [address] [place] [address] 12/14/2025 11:00 AM CDT Office Visit [facility] Heart and Vascular - [facility] [address] [place] [address] Nam Coto MD [address] [facility] [address] [place] [address] documented as of this encounter Visit Diagnoses Not on filedocumented in this encounter Additional Health Concerns Infection Onset Date Last Indicated Resolved Time R/O COVID-19 12/28/2019 12/28/2019 12/30/2019 5:45 AM CDT COVID-19 12/28/2019 12/28/2019 01/27/2020 1:16 AM CDT documented as of this encounter Care Teams Emergency Nurse Relationship Specialty [place] [address] [place] [address] PCP - General 01/02/25 documented as of this encounter
--- OUTSIDE RECORDS SUMMARY | 2025-01-26 12:31 | XMS_ITS | Encounter Summary ---
Author Organization [facility] Address [address] [facility] Attn: Epic Prelude ADT [place] [address] Care Team Providers Care Field Placement Director Name Role Phone VishnuAmarjit dillon Primary Care [...] on file Legal Sex Female 4:29 AM GRAIN MILLER HELPER Gender Identity Not on file Sexual Orientation Not on file documented as of this encounter Plan of Treatment Upcoming Encounters Date Type Department Care Team (Late st Contact Info) Description 04/18/2025 2:45 PM GRAIN MILLER HELPER Office Visit [facility] Orthopedic Surgery at the [facility] [address] [facility] [address] [place] [address] [place] [address] [place] [address] 05/04/2025 2:45 PM GRAIN MILLER HELPER Office Visit [facility] Oncology and Hematology - Paras [address] [place] [address] Nelson Cazares MD [address] [facility] [address] [place] [address] 06/13/2025 10:00 AM CDT Appointment [facility] [address] [place] [address] [place] [address] [place] [address] 06/13/2025 11:05 AM CDT Office Visit [facility] Breast Surgery [place] [address] [place] [address] [place] [address] [place] [address] 07/13/2025 10:00 AM CDT Office Visit [facility] Endocrinology [address] [place] [address] Shanice Llamas MD [address] [place] [address] 12/14/2025 11:00 AM CDT Office Visit [facility] Heart and Vascular - [facility] [address] [place] [address] Nam Coto MD [address] [facility] [address] [place] [address] documented as of this encounter Visit Diagnoses Not on filedocumented in this encounter Additional Health Concerns Infection Onset Date Last Indicated Resolved Time R/O COVID-19 12/28/2019 12/28/2019 12/30/2019 5:45 AM CDT COVID-19 12/28/2019 12/28/2019 01/27/2020 1:16 AM CDT documented as of this encounter Care Teams Field Placement Director Relationship Specialty [place] [address] [facility] [address] [place] [address] PCP - General 01/02/25 documented as of this encounter
--- OUTSIDE RECORDS SUMMARY | 2025-01-26 12:31 | XMS_ITS | Encounter Summary ---
Author Organization [facility] Address [address] [place] [address] Care Team Providers Care Edger Technician Name Role Phone Amarjit Mares Primary Care Provide r Encounter Details Date Type Department Care Team (Late Contact Info) Description 09/10/1998 Outpatient Historical HIS [facility] Jeremías Farias MD NO ADDRESS ON FILE Social History Tobacco Use Types Packs/Day Years Used Date Smoking Tobacco: Never Assessed Comments Unknown Sex and Gender Information Value Date Recorded Sex Assigned at Not on file Legal Sex Female 4:29 AM MILLING MACHINE OPERATOR GEAR Gender Identity Not on file Sexual Orientation Not on file documented as of this encounter Plan of Treatment Upcoming Encounters Date Type Department Care Team (Late Contact Info) Description 04/18/2025 2:45 PM MILLING MACHINE OPERATOR GEAR Office Visit [facility] Orthopedic Surgery at the [facility] [address] [place] [address] [place] [address] [place] [address] 05/04/2025 2:45 PM MILLING MACHINE OPERATOR GEAR Office Visit [facility] Oncology and Hematology - Paras [address] [place] [address] Nelson Cazares MD [address] [facility] [address] [place] [address] 06/13/2025 10:00 AM CDT Appointment [facility] [address] [place] [phone] [place] [address] [place] [address] 06/13/2025 11:05 AM CDT Office Visit [facility] Breast Surgery [address] [place] [phone] [place] [address] [place] [address] 07/13/2025 10:00 AM CDT Office Visit [facility] Endocrinology [address] [place] [address] Shanice Llamas MD [address] [place] [address] 12/14/2025 11:00 AM CDT Office Visit [facility] Heart and Vascular - Old [facility] [address] [place] [address] Nam Coto MD [address] [facility] [facility] [address] [place] [address] documented as of this encounter Visit Diagnoses Not on filedocumented in this encounter Additional Health Concerns Infection Onset Date Last Indicated Resolved Time R/O COVID-19 12/28/2019 12/28/2019 12/30/2019 5:45 AM CDT COVID-19 12/28/2019 12/28/2019 01/27/2020 1:16 AM CDT documented as of this encounter Care Teams Edger Technician Relationship Specialty [place] [address] [address] [place] [address] PCP - General 01/02/25 documented as of this encounter
--- OUTSIDE RECORDS SUMMARY | 2025-01-26 12:31 | XMS_ITS | Encounter Summary ---
Author Organization [facility] Address [address] [facility] Attn: Epic Prelude ADT [place] [address] Care Team Providers Care Departmental Buyer Name Role Phone VishnuAmarjit dillon Primary Care Provide r Encounter Details Date Type Department Care Team (Late st Contact Info) Description 12/27/1990 Outpatient Historical Jeremías Farias MD NO ADDRESS ON FILE Social History Tobacco Use Types Packs/Day Years Used Date Smoking Tobacco: Never Assessed Comments Unknown Sex and Gender Information Value Date Recorded Sex Assigned at Not on file Legal Sex Female 4:29 AM MATERIAL MANAGER Gender Identity Not on file Sexual Orientation Not on file documented as of this encounter Plan of Treatment Upcoming Encounters Date Type Department Care Team (Late st Contact Info) Description 04/18/2025 2:45 PM MATERIAL MANAGER Office Visit [facility] Orthopedic Surgery at the [facility] [address] [facility] [address] [facility] [address] [place] [address] [place] [address] [place] [address] 05/04/2025 2:45 PM MATERIAL MANAGER Office Visit [facility] Oncology and Hematology - Paras [address] [place] [address] Nelson Cazares MD [address] [facility] [address] [place] [address] 06/13/2025 10:[address] [facility] [place] [address] [address] [place] [address] [place] [address] [place] [address] 06/13/2025 11:05 AM CDT Office Visit [facility] Breast Surgery [place] [address] [place] [address] [place] [address] [place] [address] 07/13/2025 10:00 AM CDT Office Visit [facility] Endocrinology [address] [place] [address] Shanice Llamas MD [address] [place] [address] 12/14/2025 11:00 AM CDT Office Visit [facility] Heart and Vascular - [facility] [address] [place] [address] Nam Coto MD [address] [facility] [address] [place] [address] documented as of this encounter Visit Diagnoses Not on filedocumented in this encounter Additional Health Concerns Infection Onset Date Last Indicated Resolved Time R/O COVID-19 12/28/2019 12/28/2019 12/30/2019 5:45 AM CDT COVID-19 12/28/2019 12/28/2019 01/27/2020 1:16 AM CDT documented as of this encounter Care Teams Departmental Buyer Relationship Specialty [place] [address] [facility] [address] [place] [address] PCP - General 01/02/25 documented as of this encounter
--- OUTSIDE RECORDS SUMMARY | 2025-01-26 12:31 | XMS_ITS | Encounter Summary ---
Author Organization [facility] Address [address] [place] [address] Care Team Providers Care Record Tabulating Clerk Name Role Phone Amarjit Mares Primary Care Provide r Encounter Details Date Type Department Care Team (Latest Contact Info) Description 09/10/1998 Outpatient Historical HIS [facility] Jeremías Torres MD NO ADDRESS ON FILE Abdominal pain, unspecified site (Primary Dx) Social History Tobacco Use Types Packs/Day Years Used Date Smoking Tobacco: Never Assessed Comments Unknown Sex and Gender Information Value Date Recorded Sex Assigned at Not on file Legal Sex Female 4:29 AM MANAGER CONSUMER Gender Identity Not on file Sexual Orientation Not on file documented as of this encounter Plan of Treatment Upcoming Encounters Date Type Department Care Team (Late st Contact Info) Description 04/18/2025 2:45 PM MANAGER CONSUMER Office Visit [facility] Orthopedic Surgery at the [facility] [address] [facility] [address] [place] [address] [place] [address] [place] [address] 05/04/2025 2:45 PM MANAGER CONSUMER Office Visit [facility] Oncology and Hematology - Paras [address] [place] [address] Nelson Cazares MD [address] [facility] [address] [place] [address] 06/13/2025 10:[address] [facility] [address] [place] [address] [place] [address] [place] [address] 06/13/2025 11:05 AM CDT Office Visit [facility] Breast Surgery [place] [address] [place] [address] [place] [address] [place] [address] 07/13/2025 10:00 AM CDT Office Visit [facility] Endocrinology [address] [place] [address] Shanice Llamas MD [address] [facility] [address] [place] [address] 12/14/2025 11:00 AM CDT Office Visit [facility] Heart and Vascular - [facility] [address] [place] [address] Nam Coto MD [address] [facility] [address] [place] [address] documented as of this encounter Visit Diagnoses Diagnosis Abdominal pain, unspecified site- Primary documented in this encounter Additional Health Concerns Infection Onset Date Last Indicated Resolved Time R/O COVID-19 12/28/2019 12/28/2019 12/30/2019 5:45 AM CDT COVID-19 12/28/2019 12/28/2019 01/27/2020 1:16 AM CDT documented as of this encounter Care Teams Record Tabulating Clerk Relationship Specialty [place] [address] [facility] [address] [place] [address] PCP - General 01/02/25 documented as of this encounter
--- OUTSIDE RECORDS SUMMARY | 2025-01-26 12:31 | XMS_ITS | Encounter Summary ---
Author Organization [facility] Address [address] [facility] Attn: Epic Prelude ADT [facility] [place] [address] Care Team Providers Care Licensed Retail Supervisor Name Role Phone VishnuAmarjit dillon Primary Care Provide r Encounter Details Date Type Department Care Team (Late st Contact Info) Description 08/20/1995 Outpatient Historical Jeremías Farias MD NO ADDRESS ON FILE Social History Tobacco Use Types Packs/Day Years Used Date Smoking Tobacco: Never Assessed Comments Unknown Sex and Gender Information Value Date Recorded Sex Assigned at Not on file Legal Sex Female 4:29 AM BURIAL NEEDS SALESPERSON Gender Identity Not on file Sexual Orientation Not on file documented as of this encounter Plan of Treatment Upcoming Encounters Date Type Department Care Team (Late st Contact Info) Description 04/18/2025 2:45 PM BURIAL NEEDS SALESPERSON Office Visit [facility] Orthopedic Surgery at the [facility] [address] [facility] [address] [place] [address] [place] [address] [place] [address] 05/04/2025 2:45 PM BURIAL NEEDS SALESPERSON Office Visit [facility] Oncology and Hematology - Paras [address] [place] [address] Nelson Cazares MD [address] [facility] [address] [place] [address] 06/13/2025 10:00 AM CDT Appointment [facility] [address] [place] [phone] [place] [address] [place] [address] 06/13/2025 11:05 AM CDT Office Visit [facility] Breast Surgery [place] [address] [place] [address] [place] [address] [place] [address] 07/13/2025 10:00 AM CDT Office Visit [facility] Endocrinology [address] [place] [address] Shanice Llamas MD [address] [place] [address] 12/14/2025 11:00 AM CDT Office Visit [facility] Heart and Vascular - [facility] [address] [place] [address] Nam Coto MD [address] [facility] [address] [place] [address] documented as of this encounter Visit Diagnoses Not on filedocumented in this encounter Additional Health Concerns Infection Onset Date Last Indicated Resolved Time R/O COVID-19 12/28/2019 12/28/2019 12/30/2019 5:45 AM CDT COVID-19 12/28/2019 12/28/2019 01/27/2020 1:16 AM CDT documented as of this encounter Care Teams Licensed Retail Supervisor Relationship Specialty [place] [address] [facility] [address] [place] [address] PCP - General 01/02/25 documented as of this encounter
--- OUTSIDE RECORDS SUMMARY | 2025-01-26 12:31 | XMS_ITS | Encounter Summary ---
Author Organization [facility] Address [address] [facility] Attn: Epic Prelude ADT [facility] [place] [address] Care Team Providers Care Gate Tender Name Role Phone VishnuAmarjit dillon Primary Care Provide r Encounter Details Date Type Department Care Team (Late st Contact Info) Description 10/07/1993 Outpatient Historical Jeremías Farias MD NO ADDRESS ON FILE Social History Tobacco Use Types Packs/Day Years Used Date Smoking Tobacco: Never Assessed Comments Unknown Sex and Gender Information Value Date Recorded Sex Assigned at Not on file Legal Sex Female 4:29 AM LOCKER ROOM SUPERVISOR Gender Identity Not on file Sexual Orientation Not on file documented as of this encounter Plan of Treatment Upcoming Encounters Date Type Department Care Team (Late st Contact Info) Description 04/18/2025 2:45 PM LOCKER ROOM SUPERVISOR Office Visit [facility] Orthopedic Surgery at the [facility] [address] [facility] [address] [place] [address] [place] [address] [place] [address] 05/04/2025 2:45 PM LOCKER ROOM SUPERVISOR Office Visit [facility] Oncology and Hematology - Paras [address] [place] [address] Nelson Cazares MD [address] [facility] [address] [place] [address] 06/13/2025 10:00 AM CDT Appointment [facility] [address] [place] [phone] [place] [address] [place] [address] [place] [address] 06/13/2025 11:05 AM CDT Office Visit [facility] Breast Surgery [place] [address] [place] [address] [place] [address] [place] [address] [place] [address] 07/13/2025 10:00 AM CDT Office Visit [facility] Endocrinology [address] [place] [address] Shanice Llamas MD [address] [place] [address] 12/14/2025 11:00 AM CDT Office Visit [facility] Heart and Vascular - [facility] [address] [place] [address] Nam Coto MD [address] [facility] [address] [place] [address] documented as of this encounter Visit Diagnoses Not on filedocumented in this encounter Additional Health Concerns Infection Onset Date Last Indicated Resolved Time R/O COVID-19 12/28/2019 12/28/2019 12/30/2019 5:45 AM CDT COVID-19 12/28/2019 12/28/2019 01/27/2020 1:16 AM CDT documented as of this encounter Care Teams Gate Tender Relationship Specialty [place] [address] [facility] [address] [place] [address] PCP - General 01/02/25 documented as of this encounter
--- OUTSIDE RECORDS SUMMARY | 2025-01-26 12:31 | XMS_ITS | Encounter Summary ---
Author Organization [facility] Address [address] [place] [address] Care Team Providers Care Home Health Administrator Name Role Phone Amarjit Mares Primary Care [...] on file Legal Sex Female 4:29 AM ZINC FURNACE CHARGER Gender Identity Not on file Sexual Orientation Not on file documented as of this encounter Plan of Treatment Upcoming Encounters Date Type Department Care Team (Late st Contact Info) Description 04/18/2025 2:45 PM ZINC FURNACE CHARGER Office Visit [facility] Orthopedic Surgery at the [facility] [address] [facility] [address] [place] [address] [place] [address] [place] [address] 05/04/2025 2:45 PM ZINC FURNACE CHARGER Office Visit [facility] Oncology and Hematology - Paras [address] [place] [address] Nelson Cazares MD [address] [facility] [address] [place] [address] 06/13/2025 10:00 AM CDT Appointment [facility] [address] [place] [address] [place] [address] [place] [address] 06/13/2025 11:05 AM CDT Office [facility] Breast Surgery [place] [address] [place] [address] [place] [address] [place] [address] 07/13/2025 10:00 AM CDT Office Visit [facility] Endocrinology [address] [place] [address] Shanice Llamas MD [address] [place] [address] 12/14/2025 11:00 AM CDT Office Visit [facility] Heart and Vascular - [facility] [address] [place] [address] Nam Coto MD [address] [facility] [address] [place] [address] documented as of this encounter Visit Diagnoses Diagnosis Abdominal pain, unspecified site- Primary documented in this encounter Additional Health Concerns Infection Onset Date Last Indicated Resolved Time R/O COVID-19 12/28/2019 12/28/2019 12/30/2019 5:45 AM CDT COVID-19 12/28/2019 12/28/2019 01/27/2020 1:16 AM CDT documented as of this encounter Care Teams Home Health Administrator Relationship Specialty [place] [address] [facility] [address] [place] [address] PCP - General 01/02/25 documented as of this encounter
--- OUTSIDE RECORDS SUMMARY | 2025-01-26 12:31 | XMS_ITS | Encounter Summary ---
Author Organization [facility] Address [address] [place] [address] Care Team Providers Care Clinical Document Improvement Educator Name Role Phone Amarjit Mares Primary Care Provide r Encounter Details Date Type Department Care Team (Latest Contact Info) Description 10/24/1999 Outpatient Historical HIS [facility] Jeremías Torres MD NO ADDRESS ON FILE Essential hypertension, benign (Primary Dx) Social History Tobacco Use Types Packs/Day Years Used Date Smoking Tobacco: Never Assessed Comments Unknown Sex and Gender Information Value Date Recorded Sex Assigned at Not on file Legal Sex Female 4:29 AM GROCERY CLERK STOCKING Gender Identity Not on file Sexual Orientation Not on file documented as of this encounter Plan of Treatment Upcoming Encounters Date Type Department Care Team (Late st Contact Info) Description 04/18/2025 2:45 PM GROCERY CLERK STOCKING Office Visit [facility] Orthopedic Surgery at the [facility] [address] [facility] [address] [place] [address] [place] [address] [place] [address] 05/04/2025 2:45 PM GROCERY CLERK STOCKING Office Visit [facility] Oncology and Hematology - Paras [address] [place] [address] Nelson Cazares MD [address] [facility] [address] [place] [address] 06/13/2025 10:00 AM CDT Appointment [facility] [place] [address] [place] [address] [place] [address] [place] [address] 06/13/2025 11:05 AM CDT Office Visit [facility] Breast Surgery [place] [address] [place] [address] [place] [address] [place] [address] 07/13/2025 10:00 AM CDT Office Visit [facility] Endocrinology [address] [place] [address] Shanice Llamas MD [address] [place] [address] 12/14/2025 11:00 AM CDT Office Visit [facility] Heart and Vascular - [facility] [address] [place] [address] Nam Coto MD [address] [facility] [address] [place] [address] documented as of this encounter Visit Diagnoses Diagnosis Essential hypertension, benign- Primary documented in this encounter Additional Health Concerns Infection Onset Date Last Indicated Resolved Time R/O COVID-19 12/28/2019 12/28/2019 12/30/2019 5:45 AM CDT COVID-19 12/28/2019 12/28/2019 01/27/2020 1:16 AM CDT documented as of this encounter Care Teams Clinical Document Improvement Educator Relationship Specialty [place] [address] [facility] [address] [place] [address] PCP - General 01/02/25 documented as of this encounter
--- OUTSIDE RECORDS SUMMARY | 2025-01-26 12:32 | XMS_ITS | Encounter Summary ---
Author Organization [facility] Address [address] [place] [address] Care Team Providers Care Outcomes Specialist Name Role Phone Vishnu Amarjit Brunson Primary Care Provide r Encounter Details Date Type Department Care Team (Late st Contact Info) Description 10/27/2001 Outpatient Historical [facility] [address] [place] [address] Dinora Mack MD [address] [place] [address] Social History Tobacco Use Types Packs/Day Years Used Date Smoking Tobacco: Never Assessed Comments Unknown Sex and Gender Information Value Date Recorded Sex Assigned at Not on file Legal Sex Female 4:29 AM FUEL AGENT Gender Identity Not on file Sexual Orientation Not on file documented as of this encounter Plan of Treatment Upcoming Encounters Date Type Department Care Team (Late st Contact Info) Description 04/18/2025 2:45 PM FUEL AGENT Office Visit [facility]opedic Surgery at the [facility] [address] [place] [address] [place] [address] [place] [address] 05/04/2025 2:45 PM FUEL AGENT Office Visit [facility] Oncology and Hematology - Paras [address] [place] [address] Nelson Cazares MD [address] [facility] [address] [place] [address] 06/13/2025 10:00 AM CDT Appointment [facility] [address] [place] [address] [place] [address] [facility] [address] [place] [address] 06/13/2025 11:05 AM CDT Office Visit [facility] Breast [facility] [address] [facility] [address] [place] [address] [place] [address] [facility] [address] [place] [address] 07/13/2025 10:00 AM CDT Office Visit [facility] Endocrinology [address] [place] [address] Shanice Llamas MD [address] [place] [address] 12/14/2025 11:00 AM CDT Office Visit [facility] Heart and Vascular - Old [facility] [address] [place] [address] Nam Coto MD [address] [facility] [address] [place] [address] documented as of this encounter Visit Diagnoses Not on filedocumented in this encounter Additional Health Concerns Infection Onset Date Last Indicated Resolved Time R/O COVID-19 12/28/2019 12/28/2019 12/30/2019 5:45 AM CDT COVID-19 12/28/2019 12/28/2019 01/27/2020 1:16 AM CDT documented as of this encounter Care Teams Outcomes Specialist Relationship Specialty [place] [address] [facility] [address] [place] [address] PCP - General 01/02/25 documented as of this encounter
--- OUTSIDE RECORDS SUMMARY | 2025-01-26 12:32 | XMS_ITS | Encounter Summary ---
Author Organization [facility] Address [address] [place] [address] Care Team Providers Care Bench Tool Maker Name Role Phone VishnuAmarjit dillon Primary Care [...] on file Legal Sex Female 4:29 AM REACTOR KETTLE OPERATOR Gender Identity Not on file Sexual Orientation Not on file documented as of this encounter Plan of Treatment Upcoming Encounters Date Type Department Care Team (Late st Contact Info) Description 04/18/2025 2:45 PM REACTOR KETTLE OPERATOR Office Visit [facility] Orthopedic Surgery at the [facility] [address] [facility] [address] [address] [place] [address] [place] [address] [place] [address] 05/04/2025 2:45 PM REACTOR KETTLE OPERATOR Office Visit [facility] Oncology and Hematology - Paras [address] [place] [address] Nelson Caazres MD [address] [facility] [address] [place] [address] 06/13/2025 10:[address] [facility] [place] [address] [place] [address] [place] [address] [facility] [address] [place] [address] 06/13/2025 11:05 AM CDT Office Visit [facility] Breast Surgery [place] [address] [place] [address] [place] [address] [facility] [address] [place] [address] 07/13/2025 10:00 AM CDT Office Visit [facility] Endocrinology [address] [facility] [address] [place] [address] Shanice Llamas MD [address] [facility] [address] [place] [address] 12/14/2025 11:00 AM CDT Office Visit [facility] Heart and Vascular - [facility] [address] [facility] [address] [place] [address] Nam Coto MD [address] [facility] [address] [place] [address] documented as of this encounter Visit Diagnoses Diagnosis Derangement of lateral meniscus, unspecified- Primary documented in this encounter Additional Health Concerns Infection Onset Date Last Indicated Resolved Time R/O COVID-19 12/28/2019 12/28/2019 12/30/2019 5:45 AM CDT COVID-19 12/28/2019 12/28/2019 01/27/2020 1:16 AM CDT documented as of this encounter Care Teams Bench Tool Maker Relationship Specialty [place] [address] [facility] [address] [place] [address] PCP - General 01/02/25 documented as of this encounter
--- OUTSIDE RECORDS SUMMARY | 2025-01-26 12:32 | XMS_ITS | Encounter Summary ---
Author Organization [facility] Address [address] [place] [address] Care Team Providers Care Heat Sealing Machine Operator Name Role Phone Amarjit Mares Primary Care [...] on file Legal Sex Female 4:29 AM WARP DYEING TENDER Gender Identity Not on file Sexual Orientation Not on file documented as of this encounter Plan of Treatment Upcoming Encounters Date Type Department Care Team (Late st Contact Info) Description 04/18/2025 2:45 PM WARP DYEING TENDER Office Visit [facility] Orthopedic Surgery at the [facility] [address] [place] [address] [place] [address] [place] [address] 05/04/2025 2:45 PM WARP DYEING TENDER Office Visit [facility] Oncology and Hematology - Paras [address] [place] [address] Nelson Cazares MD [address] [facility] [address] [place] [address] 06/13/2025 10:00 AM CDT Appointment [facility] [address] [place] [phone] [place] [address] [place] [address] 06/13/2025 11:05 AM CDT Office Visit [facility] Breast Surgery [place] [address] [place] [address] [place] [address] [place] [address] 07/13/2025 10:00 AM CDT Office Visit [facility] Endocrinology [address] [place] [address] Shanice Llamas MD [address] [place] [address] 12/14/2025 11:00 AM CDT Office Visit [facility] Heart and Vascular - [facility] [address] [place] [address] Nam Coto MD [address] [facility] [address] [place] [address] documented as of this encounter Visit Diagnoses Diagnosis Chest pain, unspecified- Primary documented in this encounter Additional Health Concerns Infection Onset Date Last Indicated Resolved Time R/O COVID-19 12/28/2019 12/28/2019 12/30/2019 5:45 AM CDT COVID-19 12/28/2019 12/28/2019 01/27/2020 1:16 AM CDT documented as of this encounter Care Teams Heat Sealing Machine Operator Relationship Specialty [place] [address] [facility] [address] [place] [address] PCP - General 01/02/25 documented as of this encounter
--- OUTSIDE RECORDS SUMMARY | 2025-01-26 12:32 | XMS_ITS | Encounter Summary ---
Author Organization [facility] Address [address] [place] [address] Care Team Providers Care Supervising Editor Trailer Name Role Phone Amarjit Mares Primary Care Provide r Encounter Details Date Type Department Care Team (Latest Contact Info) Description 10/15/2001 Outpatient Historical HIS [facility] Jeremías Torres MD NO ADDRESS ON FILE BENIGN HYPERTENSION (Primary Dx) Social History Tobacco Use Types Packs/Day Years Used Date Smoking Tobacco: Never Assessed Comments Unknown Sex and Gender Information Value Date Recorded Sex Assigned at Not on file Legal Sex Female 4:29 AM SITE SURVEYOR Gender Identity Not on file Sexual Orientation Not on file documented as of this encounter Plan of Treatment Upcoming Encounters Date Type Department Care Team (Late st Contact Info) Description 04/18/2025 2:45 PM SITE SURVEYOR Office Visit [facility] ([facility]) Orthopedic Surgery at the [facility] [address] [place] [address] [place] [address] [place] [address] 05/04/2025 2:45 PM SITE SURVEYOR Office Visit [facility] ([facility] Oncology and Hematology - [address] [place] [address] Nelson Cazares MD [address] [facility] [address] [place] [address] 06/13/2025 10:00 AM CDT Appointment [facility] [place] [facility] [place] [address] [place] [address] [place] [address] 06/13/2025 11:05 AM CDT Office Visit [facility] Breast Surgery [place] [address] [place] [address] [place] [address] [place] [address] 07/13/2025 10:00 AM CDT Office Visit [facility] ([facility]) Endocrinology [address] [place] [address] Shanice Llamas MD [address] [place] [address] 12/14/2025 11:00 AM CDT Office Visit [facility]) Heart and Vascular - [facility] [address] [place] [address] Nam Coto MD [address] [facility] [address] [place] [address] documented as of this encounter Visit Diagnoses Diagnosis Essential hypertension, benign- Primary documented in this encounter Additional Health Concerns Infection Onset Date Last Indicated Resolved Time R/O COVID-19 12/28/2019 12/28/2019 12/30/2019 5:45 AM CDT COVID-19 12/28/2019 12/28/2019 01/27/2020 1:16 AM CDT documented as of this encounter Care Teams Supervising Editor Trailer Relationship Specialty [place] [address] [facility] [address] [place] [address] PCP - General 10/6/25 documented as of this encounter
--- OUTSIDE RECORDS SUMMARY | 2025-01-26 12:32 | XMS_ITS | Encounter Summary ---
Author Organization [facility] Address [address] [place] [address] Care Team Providers Care Ditch Inspector Name Role Phone Amarjit Mares Primary Care [...] on file Legal Sex Female 4:29 AM SALESPERSON WIGS Gender Identity Not on file Sexual Orientation Not on file documented as of this encounter Plan of Treatment Upcoming Encounters Date Type Department Care Team (Late st Contact Info) Description 04/18/2025 2:45 PM SALESPERSON WIGS Office Visit [facility] Orthopedic Surgery at the [facility] [address] [place] [address] [place] [address] [place] [address] 05/04/2025 2:45 PM SALESPERSON WIGS Office [facility] Oncology and Hematology - Paras [address] [address] [place] [address] Nelson Cazares MD [address] [facility] [address] [place] [address] 06/13/2025 10:00 AM CDT Appointment [facility] [place] [address] [facility] [place] [phone] [place] [address] [place] [address] 06/13/2025 11:05 AM CDT Office Visit [facility] Breast Surgery [place] [address] [place] [address] [place] [address] [place] [address] 07/13/2025 10:00 AM CDT Office Visit [facility] Endocrinology [address] [place] [address] Shanice Llamas MD [address] [facility] [address] [place] [address] 12/14/2025 11:00 AM CDT Office [facility] Heart and Vascular - [facility] [address] [place] [address] Nam Coto MD [address] [facility] [address] [place] [address] documented as of this encounter Visit Diagnoses Diagnosis Essential hypertension, benign- Primary documented in this encounter Additional Health Concerns Infection Onset Date Last Indicated Resolved Time R/O COVID-19 12/28/2019 12/28/2019 12/30/2019 5:45 AM CDT COVID-19 12/28/2019 12/28/2019 01/27/2020 1:16 AM CDT documented as of this encounter Care Teams Ditch Inspector Relationship Specialty [place] [address] [address] [place] [address] PCP - General 10/6/25 documented as of this encounter
--- OUTSIDE RECORDS SUMMARY | 2025-01-26 12:32 | XMS_ITS | Patient Health Record ---
Author Organization [facility] Address [address] [place] [address] Care Team Providers Care Manager Flight Operations Name Role Phone Johnathon Bronson Unavailable [phone] Migration, Provider Unavailable Unavailable Reason For Referral No Information Medications Medication SIG (Take, Route, Frequency, Duration) Notes Start Date End Date Status Famotidine *Pick strength-form from [facility] for eRX* 10/19/2023 Active Famotidine 40 MG Tablet Oral 10/19/2023 Active HumaLOG KwikPen 100 UNIT/ML Solution Pen-injector Subcutaneous 10/19/2023 Active Levemir FlexPen 100 unit/mL (3 mL) INSULIN PEN (ML) SUBCUTANEOUS *Reorder from [facility] for eRx and Interaction Alerts* 10/19/2023 Active Baclofen 10 MG Tablet Oral 10/19/2023 Active metFORMIN HCl ER 500 MG Tablet Extended Release 24 Hour Oral 10/19/2023 Active Bactrim DS 800-160 MG Tablet Oral 10/19/2023 Active Trulicity 0.75 MG/0.5ML Solution Auto-injector Subcutaneous 10/19/2023 Activ e Cefdinir 300 MG Capsule Oral 10/19/2023 Active ULTRA-FINE SHORT PEN NEEDLE 31 gauge x 5/16 NEEDLE, DISPOSABLE MISCELLANEOUS *Reorder from [facility] for eRx and Interaction Alerts* 10/19/2023 Active Clindamycin HCl 300 MG Capsule Oral 10/19/2023 Active Clotrimazole-Betamethaso ne 1-0.05 % Cream External 10/19/2023 Active Doxycycline Monohydrate 100 MG Capsule Oral 10/19/2023 Active Esomeprazole Magnesium 40 MG Capsule Delayed Release Oral 10/19/2023 Active Olmesartan Medoxomil 40 MG Tablet Oral 10/19/2023 Active Pantoprazole Sodium 40 MG Tablet Delayed Release Oral 10/19/2023 Active Anastrozole 1 MG Tablet Oral 10/19/2023 Active PARoxetine HCl 40 MG Tablet Oral 10/19/2023 Active Atenolol 50 MG Tablet Oral 10/19/2023 Active Simvastatin 40 MG Tablet Oral 10/19/2023 Active Azithromycin 250 MG Tablet Oral 10/19/2023 Active Sulfamethoxazole-Trimeth oprim 800-160 MG Tablet Oral 10/19/2023 Acti ve metFORMIN HCl 500 MG Tablet Oral 10/19/2023 Active methylPREDNISolone 4 MG Tablet Therapy Pack Oral 10/19/2023 Active metroNIDAZOLE 500 MG Tablet Oral 10/19/2023 Active Minocycline HCl 100 MG Capsule Oral 10/19/2023 Active Montelukast Sodium 10 MG Tablet Oral 10/19/2023 Active Olmesartan Medoxomil 20 MG Tablet Oral 10/19/2023 Active Social History Social History Additional Details Category Social Info Options Details Migrated Social History Migrated Social History Alcohol Intake: Occasional 08/29/2022,Tobacco Years: Never smoker 08/28/2022 Problems Problem Type SNOMED Code ICD Code Onset Dates Problem Status W/U Status Risk Notes Problem Pruritus of genital organs (312527979) Anogenital pruritus, unspecified (L29.3) 10/19/19 24 Active confirmed Problem Breast signs and symptoms (055998847) Other signs and symptoms in breast (N64.59) 08/30/19 23 Active confirmed Problem Acute vaginitis (25208017) Acute vaginitis (N76.0) 10/23/19 24 Active confirmed Problem Unspecified symptoms and signs involving the genitourinary system (R39.9) 10/19/19 24 Active confirmed Problem Gynecological examination normal (894529886438121) Encntr for spice mixer exam (general) (routine) w/o abn findings (Z01.419) 10/19/19 24 Active confirmed Encounters Encounter Location Date Provider Diagnosis [facility] [address] [place], [place] [id number] 06/25/2024 Prov ider Migration [facility] [address] [place], [place] [id number] 06/26/2024 Prov ider Migration Plan Of Treatment No Information Insurance Providers Payer Name Payer Address Payer Phone Subscriber Number Group Number Insured Name Patient Relationship to Insured Coverage Start Date Coverage End Date [place] [address] [address] [place], [place] [id number] WILLIAM RUIZ Self - patient is the insured [facility] Medicare Supplement [address] [place] [address] [id number] WILLIAM RUIZ Self - patient is the insured Medical (General) History Surgical History Surgery Date(Month/Year) Cholecystectomy (92519568) Colonoscopy (15384883) Excision of lesion of labia (337762514) Hernia repair (18347453) Hysterectomy (400259173) Hysteroscopy Procedure on gallbladder (022399144) Tonsillectomy (814500343) Total knee replacement (712018280)
--- OUTSIDE RECORDS SUMMARY | 2025-01-26 12:32 | XMS_ITS | Encounter Summary ---
Author Organization [facility] Address [address] [facility] Attn: [place] [address] Care Team Providers Care Open End Spinning Operator Name Role Phone VishnuAmarjit Primary Care Provide r Encounter Details Date Type Department Care Team (Late st Contact Info) Description 01/07/1993 Outpatient Historical Yariel Echavarria MD NO ADDRESS ON FILE Social History Tobacco Use Types Packs/Day Years Used Date Smoking Tobacco: Never Assessed Comments Unknown Sex and Gender Information Value Date Recorded Sex Assigned at Not on file Legal Sex Female 4:29 AM TIRE MAN Gender Identity Not on file Sexual Orientation Not on file documented as of this encounter Plan of Treatment Upcoming Encounters Date Type Department Care Team (Late st Contact Info) Description 04/18/2025 2:45 PM TIRE MAN Office Visit [facility] Orthopedic Surgery at the [facility] [address] [facility] [place] [address] [place] [address] [place] [address] 05/04/2025 2:45 PM TIRE MAN Office Visit [facility] Oncology and Hematology - Paras [address] [place] [address] Nelson Cazares MD [address] [place] [address] 06/13/2025 10:00 AM CDT Appointment [facility] [place] [address] [place] [address] [place] [address] [place] [address] 06/13/2025 11:05 AM CDT Office Visit [facility] Breast Surgery [place] [address] [place] [address] [place] [address] [place] [address] 07/13/2025 10:00 AM CDT Office Visit [facility] Endocrinology [address] [place] [address] Shanice Llamas MD [address] [place] [address] 12/14/2025 11:00 AM CDT Office Visit [facility] Heart and Vascular - [facility] [address] [place] [address] Nam Coto MD [address] [facility] [address] [place] [address] documented as of this encounter Visit Diagnoses Not on filedocumented in this encounter Additional Health Concerns Infection Onset Date Last Indicated Resolved Time R/O COVID-19 12/28/2019 12/28/2019 12/30/2019 5:45 AM CDT COVID-19 12/28/2019 12/28/2019 01/27/2020 1:16 AM CDT documented as of this encounter Care Teams Open End Spinning Operator Relationship Specialty [place] [address] [place] [address] PCP - General 01/02/25 documented as of this encounter
--- OUTSIDE RECORDS SUMMARY | 2025-01-26 12:32 | XMS_ITS | Encounter Summary ---
Author Organization [facility] Address [address] [place] [address] Care Team Providers Care Special Deputy Sheriff Name Role Phone Amarjit Mares Primary Care Provide r Encounter Details Date Type Department Care Team (Late Contact Info) Description 09/03/2000 Outpatient Historical HIS [facility] Jeremías Farias MD NO ADDRESS ON FILE Social History Tobacco Use Types Packs/Day Years Used Date Smoking Tobacco: Never Assessed Comments Unknown Sex and Gender Information Value Date Recorded Sex Assigned at Not on file Legal Sex Female 4:29 AM DATE NIGHT SITTER Gender Identity Not on file Sexual Orientation Not on file documented as of this encounter Plan of Treatment Upcoming Encounters Date Type Department Care Team (Late Contact Info) Description 04/18/2025 2:45 PM DATE NIGHT SITTER Office Visit [facility] Orthopedic Surgery at the [facility] [address] [facility] [address] [place] [address] [place] [address] [place] [address] 05/04/2025 2:45 PM DATE NIGHT SITTER Office Visit [facility] Oncology and Hematology - Paras [address] [place] [address] Nelson Cazares MD [address] [facility] [address] [place] [address] 06/13/2025 10:[address] [facility] Jaz[place] [address] [place] [address] [place] [address] [place] [address] 06/13/2025 11:05 AM CDT Office Visit [facility] Breast Surgery [place] [address] [place] [address] [place] [address] [place] [address] 07/13/2025 10:00 AM CDT Office Visit [facility] Endocrinology [address] [place] [address] Shanice Llamas MD [address] [place] [address] 12/14/2025 11:00 AM CDT Office Visit [facility] Heart and Vascular - [facility] [address] [place] [address] Nam Coto MD [address] [facility] [address] [place] [address] documented as of this encounter Visit Diagnoses Not on filedocumented in this encounter Additional Health Concerns Infection Onset Date Last Indicated Resolved Time R/O COVID-19 12/28/2019 12/28/2019 12/30/2019 5:45 AM CDT COVID-19 12/28/2019 12/28/2019 01/27/2020 1:16 AM CDT documented as of this encounter Care Teams Special Deputy Sheriff Relationship Specialty [place] [address] [place] [address] PCP - General 01/02/25 documented as of this encounter
--- OUTSIDE RECORDS SUMMARY | 2025-01-26 12:32 | XMS_ITS | Encounter Summary ---
Author Organization [facility] Address [address] [place] [address] Care Team Providers Care Tire Assembler Name Role Phone Amarjit Mares Primary Care Provide r Encounter Details Date Type Department Care Team (Latest Contact Info) Description 09/03/2000 Outpatient Historical HIS [facility] Jeremías Torres MD NO ADDRESS ON FILE Essential hypertension, benign (Primary Dx) Social History Tobacco Use Types Packs/Day Years Used Date Smoking Tobacco: Never Assessed Comments Unknown Sex and Gender Information Value Date Recorded Sex Assigned at Not on file Legal Sex Female 4:29 AM PHLEBOTOMY SUPPORT TECH Gender Identity Not on file Sexual Orientation Not on file documented as of this encounter Plan of Treatment Upcoming Encounters Date Type Department Care Team (Late st Contact Info) Description 04/18/2025 2:45 PM PHLEBOTOMY SUPPORT TECH Office Visit [facility] Orthopedic Surgery at the [facility] [address] [place] [address] [place] [address] [place] [address] 05/04/2025 2:45 PM PHLEBOTOMY SUPPORT TECH Office Visit [facility] Oncology and Hematology - Paras [address] [place] [address] Nelson Cazares MD [address] [facility] [address] [place] [address] 06/13/2025 10:00 AM CDT Appointment [facility] [place] [address] [place] [phone] [place] [address] [place] [address] 06/13/2025 11:05 AM CDT Office Visit [facility] Breast Surgery [place] [address] [place] [address] [place] [address] [place] [address] 07/13/2025 10:00 AM CDT Office Visit [facility] Endocrinology [address] [place] [address] Shanice Llamas MD [address] [place] [address] 12/14/2025 11:00 AM CDT Office Visit [facility] Heart and Vascular - [facility] [address] [place] [address] Nam Coto MD [address] [facility] [address] [place] [address] documented as of this encounter Visit Diagnoses Diagnosis Essential hypertension, benign- Primary documented in this encounter Additional Health Concerns Infection Onset Date Last Indicated Resolved Time R/O COVID-19 12/28/2019 12/28/2019 12/30/2019 5:45 AM CDT COVID-19 12/28/2019 12/28/2019 01/27/2020 1:16 AM CDT documented as of this encounter Care Teams Tire Assembler Relationship Specialty [place] [address] [facility] [address] [place] [address] PCP - General 01/02/25 documented as of this encounter
--- OUTSIDE RECORDS SUMMARY | 2025-01-26 12:32 | XMS_ITS | Encounter Summary ---
Author Organization [facility] Address [address] [facility] Attn: Epic [place] [address] Care Team Providers Care Camp Guard Name Role Phone VishnuAmarjit dillon Primary Care [...] on file Legal Sex Female 4:29 AM TINT LAYER Gender Identity Not on file Sexual Orientation Not on file documented as of this encounter Plan of Treatment Upcoming Encounters Date Type Department Care Team (Late st Contact Info) Description 04/18/2025 2:45 PM TINT LAYER Office Visit [facility] Orthopedic Surgery at the [facility] [address] [facility] [address] [place] [address] [place] [address] [place] [address] 05/04/2025 2:45 PM TINT LAYER Office Visit [facility] Oncology and Hematology - Paras [address] [place] [address] Nelson Cazares MD [address] [facility] [address] [place] [address] 06/13/2025 10:00 AM CDT Appointment [facility] [place] [address] [facility] [phone] [place] [address] [place] [address] 06/13/2025 11:05 AM CDT Office Visit [facility] Breast Surgery [place] [address] [place] [address] [place] [address] [place] [address] 07/13/2025 10:00 AM CDT Office Visit [facility] Endocrinology [address] [place] [address] Shanice Llamas MD [address] [place] [address] 12/14/2025 11:00 AM CDT Office Visit [facility] Heart and Vascular - [facility] [address] [place] [address] Nam Coto MD [address] [facility] [address] [place] [address] documented as of this encounter Visit Diagnoses Not on filedocumented in this encounter Additional Health Concerns Infection Onset Date Last Indicated Resolved Time R/O COVID-19 12/28/2019 12/28/2019 12/30/2019 5:45 AM CDT COVID-19 12/28/2019 12/28/2019 01/27/2020 1:16 AM CDT documented as of this encounter Care Teams Camp Guard Relationship Specialty [place] [address] [address] [facility] [address] [place] [address] PCP - General 01/02/25 documented as of this encounter
--- OUTSIDE RECORDS SUMMARY | 2025-01-26 12:32 | XMS_ITS | Encounter Summary ---
Author Organization [facility] Address [address] Attn: [place] [address] Care Team Providers Care Quantitative Software Engineer Name Role Phone VishnuAmarjit dillon Primary Care Provide r Encounter Details Date Type Department Care Team (Late st Contact Info) Description 08/09/1993 Outpatient Historical Jeremías Farias MD NO ADDRESS ON FILE Social History Tobacco Use Types Packs/Day Years Used Date Smoking Tobacco: Never Assessed Comments Unknown Sex and Gender Information Value Date Recorded Sex Assigned at Not on file Legal Sex Female 4:29 AM TEASELER Gender Identity Not on file Sexual Orientation Not on file documented as of this encounter Plan of Treatment Upcoming Encounters Date Type Department Care Team (Late st Contact Info) Description 04/18/2025 2:45 PM TEASELER Office Visit [facility] at the [facility] [address] [place] [address] [place] [address] [place] [address] 05/04/2025 2:45 PM TEASELER Office Visit [facility] Oncology and Hematology - Paras [address] [place] [address] Nelson Cazares MD [address] [facility] [address] [place] [address] 06/13/2025 10:00 AM CDT Appointment [facility] [place] [facility] [place] [facility] [place] [address] [place] [address] [place] [address] 06/13/2025 11:05 AM CDT Office Visit [facility] Breast Surgery [place] [address] [place] [address] [place] [address] [place] [address] 07/13/2025 10:00 AM CDT Office Visit [facility] Endocrinology [address] [place] [address] Shanice Llamas MD [address] [place] [address] 12/14/2025 11:00 AM CDT Office Visit [facility] Heart and Vascular - [facility] [address] [place] [address] Nam Coto MD [address] [address] [place] [address] documented as of this encounter Visit Diagnoses Not on filedocumented in this encounter Additional Health Concerns Infection Onset Date Last Indicated Resolved Time R/O COVID-19 12/28/2019 12/28/2019 12/30/2019 5:45 AM CDT COVID-19 12/28/2019 12/28/2019 01/27/2020 1:16 AM CDT documented as of this encounter Care Teams Quantitative Software Engineer Relationship Specialty [place] [address] [facility] [address] [place] [address] PCP - General 01/02/25 documented as of this encounter
--- OUTSIDE RECORDS SUMMARY | 2025-01-26 12:32 | XMS_ITS | Encounter Summary ---
Author Organization [facility] Address [address] [place] [address] Care Team Providers Care Duct Cleaner Name Role Phone Amarjit Mares Primary Care Provide r Encounter Details Date Type Department Care Team (Latest Contact Info) Description 05/11/2000 Outpatient Historical HIS [facility] [...] on file Legal Sex Female 4:29 AM CONSERVATION ENFORCEMENT OFFICER Gender Identity Not on file Sexual Orientation Not on file documented as of this encounter Plan of Treatment Upcoming Encounters Date Type Department Care Team (Late st Contact Info) Description 04/18/2025 2:45 PM CONSERVATION ENFORCEMENT OFFICER Office Visit [facility] Orthopedic Surgery at the [facility] [address] [place] [address] [place] [address] [place] [address] 05/04/2025 2:45 PM CONSERVATION ENFORCEMENT OFFICER Office Visit [facility] Oncology and Hematology - Paras [address] [place] [address] Nelson Cazares MD [address] [facility] [address] [place] [address] 06/13/2025 10:00 AM CDT Appointment [facility] [place] [address] [place] [address] [place] [address] [facility] [address] [place] [address] 06/13/2025 11:05 AM CDT Office Visit [facility] Breast Surgery [place] [address] [place] [address] [place] [address] [facility] [address] [place] [address] 07/13/2025 10:00 AM CDT Office Visit [facility] Endocrinology [address] [place] [address] Shanice Llamas MD [address] [place] [address] 12/14/2025 11:00 AM CDT Office Visit [facility] Heart and Vascular - [facility] [address] [place] [address] Nam Coto MD [address] [facility] [address] [place] [address] documented as of this encounter Visit Diagnoses Diagnosis Type II or unspecified type diabetes mellitus without mention of complication, not stated as uncontrolled- Primary documented in this encounter Additional Health Concerns Infection Onset Date Last Indicated Resolved Time R/O COVID-19 12/28/2019 12/28/2019 12/30/2019 5:45 AM CDT COVID-19 12/28/2019 12/28/2019 01/27/2020 1:16 AM CDT documented as of this encounter Care Teams Duct Cleaner Relationship Specialty Start Date End [place]arj[place] [id number] [place] [address] [address] [place] [address] PCP - General 01/02/25 documented as of this encounter
--- OUTSIDE RECORDS SUMMARY | 2025-01-26 12:32 | XMS_ITS | Clinical Summary ---
Author Organization [facility] Address [address] [place] [address] Care Team Providers Care Patient Care Coordinator Name Role Phone Kerwin Quiroga MD Primary Care Provider [phone] Allergies Active Allergy Reactions Criticality Noted Date [...] Active Additional Information Patient not taking.Reported on 10/04/2024 anastrozole (ARIMIDEX) 1 mg tablet Take 1 [...] PARoxetine (PAXIL) 40 mg tablet 5 Active Active Problems Problem Noted Date Diagnosed Date [...] Esophageal reflux 09/16/2006 Essential hypertension, benign 09/16/2006 Surgical History Surgery Date Site/Laterality Comments KNEE SURGERY JOINT REPLACEMENT CHOLECYSTECTOMY HYSTERECTOMY BREAST BIOPSY 09/24/2022 Right BREAST LUMPECTOMY 09/27/2022 - 10/27/2022 Right Medical History Medical History Date Comments Hypertension Hypercholesteremia Diabetes mellitus Gastric reflux Breast cancer (HCC) Family History [...] on file Legal Sex Female 1:48 AM PIPE CREW FOREMAN Gender Identity Not on file Sexual Orientation Not on file Obstetrics History Last Filed Vital Signs Vital Sign Reading Time Taken Comments Blood Pressure 128/82 10/04/2024 2:26 PM CDT Pulse 70 10/04/2024 2:26 PM CDT Temperature 36.1 C (97 F) 10/04/2024 2:26 PM CDT Respiratory Rate 17 10/04/2024 2:26 PM CDT Oxygen Saturation 98% 10/04/2024 2:26 PM CDT Inhaled Oxygen Concentration - - Weight 90.7 kg (200 lb) 10/04/2024 2:26 PM CDT Height 162.6 cm (5' 4) 10/04/2024 2:26 PM CDT Body Mass Index 34.33 10/04/2024 2:26 PM CDT Plan of Treatment Health Maintenance Due [...] Additional history exists Covid-19 Vaccine (5 - 2024-2 6 season) 2024 01/28/2021, 01/04/2021, 06/26/2020, Additional history exists Influenza Vaccine (#1) 2024 , 12/28/2020, 12/23/2018, Additional history exists Hemoglobin A1C 12/21/2024 06/20/2024, 11/28, 06/18/2023, Additional history exists Zoster Vaccine Completed 06/24/2018, 03/13/2018 Insurance MEDICARE [facility] MEDICARE [facility] Care Teams Patient Care Coordinator Relationship Specialty [place] [address] [facility] [address] [place] [address] PCP - General Internal Medicine 01/18/21
--- OUTSIDE RECORDS SUMMARY | 2025-01-26 12:32 | XMS_ITS | Encounter Summary ---
Author Organization [facility] Address [address] [place] [address] Care Team Providers Care Manager Star Name Role Phone Amarjit Mares Primary Care Provide r Encounter Details Date Type Department Care Team (Latest Contact Info) Description 12/30/2000 Outpatient Historical HIS [facility] Jeremías Torres MD NO ADDRESS ON FILE Essential hypertension, benign (Primary Dx) Social History Tobacco Use Types Packs/Day Years Used Date Smoking Tobacco: Never Assessed Comments Unknown Sex and Gender Information Value Date Recorded Sex Assigned at Not on file Legal Sex Female 4:29 AM SLITTING MACHINE FEEDER Gender Identity Not on file Sexual Orientation Not on file documented as of this encounter Plan of Treatment Upcoming Encounters Date Type Department Care Team (Late st Contact Info) Description 04/18/2025 2:45 PM SLITTING MACHINE FEEDER Office Visit [facility] Orthopedic Surgery at the [facility] [address] [place] [address] [place] [address] [place] [address] 05/04/2025 2:45 PM SLITTING MACHINE FEEDER Office Visit [facility] Oncology and Hematology - Paras [address] [place] [address] Nelson Cazares MD [address] [facility] [address] [place] [address] 06/13/2025 10:00 AM CDT Appointment [facility] [place] [address] [place] [phone] [place] [address] [place] [address] 06/13/2025 11:05 AM CDT Office Visit [facility] Breast Surgery [place] [address] [place] [address] [place] [address] [place] [address] 07/13/2025 10:00 AM CDT Office Visit [facility] Endocrinology [address] [facility] [address] [place] [address] Shanice Llamas MD [address] [facility] [address] [place] [address] 12/14/2025 11:00 AM CDT Office Visit [facility] Heart and Vascular - [facility] [address] [place] [address] Nam Coto MD [address] [facility] [address] [place] [address] documented as of this encounter Visit Diagnoses Diagnosis Essential hypertension, benign- Primary documented in this encounter Additional Health Concerns Infection Onset Date Last Indicated Resolved Time R/O COVID-19 12/28/2019 12/28/2019 12/30/2019 5:45 AM CDT COVID-19 12/28/2019 12/28/2019 01/27/2020 1:16 AM CDT documented as of this encounter Care Teams Manager Star Relationship Specialty [place] [address] [facility] [address] [place] [address] PCP - General 01/02/25 documented as of this encounter
--- OUTSIDE RECORDS SUMMARY | 2025-01-26 12:32 | XMS_ITS | Encounter Summary ---
Author Organization [facility] Address [address] [place] [address] Care Team Providers Care Quality Control Industrial Engineer Name Role Phone Amarjit Mares Primary Care Provide r Encounter Details Date Type Department Care Team (Latest Contact Info) Description 02/10/[address] [facility] Jeremías Torres MD NO ADDRESS ON FILE Essential hypertension, benign (Primary Dx) Social History Tobacco Use Types Packs/Day Years Used Date Smoking Tobacco: Never Assessed Comments Unknown Sex and Gender Information Value Date Recorded Sex Assigned at Not on file Legal Sex Female 4:29 AM SAMPLE DYE MIXER Gender Identity Not on file Sexual Orientation Not on file documented as of this encounter Plan of Treatment Upcoming Encounters Date Type Department Care Team (Late st Contact Info) Description 04/18/2025 2:45 PM SAMPLE DYE MIXER Office Visit [facility] Orthopedic Surgery at the [facility] [address] [place] [address] [place] [address] [place] [address] 05/04/2025 2:45 PM SAMPLE DYE MIXER Office Visit [facility] Oncology and Hematology - Paras [address] [place] [address] Nelson Cazares MD [address] [facility] [address] [place] [address] 06/13/2025 10:00 AM CDT Appointment [facility] [place] [address] [place] [address] [place] [address] [place] [address] 06/13/2025 11:05 AM CDT Office Visit [facility] Breast Surgery [place] [address] [place] [address] [place] [address] [place] [address] 07/13/2025 10:00 AM CDT Office Visit [facility] Endocrinology [address] [place] [address] Shanice Llamas MD [address] [place] [address] 12/14/2025 11:00 AM CDT Office Visit [facility] Heart and Vascular - [facility] [address] [place] [address] Nam Coto MD [address] [facility] [address] [place] [address] documented as of this encounter Visit Diagnoses Diagnosis Essential hypertension, benign- Primary documented in this encounter Additional Health Concerns Infection Onset Date Last Indicated Resolved Time R/O COVID-19 12/28/2019 12/28/2019 12/30/2019 5:45 AM CDT COVID-19 12/28/2019 12/28/2019 01/27/2020 1:16 AM CDT documented as of this encounter Care Teams Quality Control Industrial Engineer Relationship Specialty [place] [address] [facility] [address] [place] [address] PCP - General 01/02/25 documented as of this encounter
--- OUTSIDE RECORDS SUMMARY | 2025-01-26 12:32 | XMS_ITS | Encounter Summary ---
Author Organization [facility] Address [address] [place] [address] Care Team Providers Care Box Printing Machine Operator Name Role Phone Amarjit Mares [...] on file Legal Sex Female 4:29 AM POLICY SPECIALIST Gender Identity Not on file Sexual Orientation Not on file documented as of this encounter Plan of Treatment Upcoming Encounters Date Type Department Care Team (Late st Contact Info) Description 04/18/2025 2:45 PM POLICY SPECIALIST Office Visit [facility] Orthopedic Surgery at the [facility] [address] [place] [address] [place] [address] [place] [address] 05/04/2025 2:45 PM POLICY SPECIALIST Office Visit [facility] Oncology and Hematology - Paras [address] [place] [address] Nelson Cazares MD [address] [facility] [address] [place] [address] 06/13/2025 10:00 AM CDT Appointment [facility] [place] [address] [place] [address] [place] [address] [place] [address] 06/13/2025 11:05 AM CDT Office Visit [facility] Breast Surgery [place] [address] [place] [address] [place] [address] [place] [address] 07/13/2025 10:00 AM CDT Office Visit [facility] Endocrinology [address] [place] [address] Shanice Llamas MD [address] [place] [address] 12/14/2025 11:00 AM CDT Office Visit [facility] Heart and Vascular - [facility] [employer] [facility] [address] [place] [address] Nam Coto MD [address] [facility] [address] [place] [address] documented as of this encounter Visit Diagnoses Diagnosis Reflux esophagitis- Primary documented in this encounter Additional Health Concerns Infection Onset Date Last Indicated Resolved Time R/O COVID-19 12/28/2019 12/28/2019 12/30/2019 5:45 AM CDT COVID-19 12/28/2019 12/28/2019 01/27/2020 1:16 AM CDT documented as of this encounter Care Teams Box Printing Machine Operator Relationship Specialty [place] [address] [facility] [address] [place] [address] PCP - General 01/02/25 documented as of this encounter
--- OUTSIDE RECORDS SUMMARY | 2025-01-26 12:32 | XMS_ITS | Encounter Summary ---
Author Organization [facility] Address [address] [place] [address] Care Team Providers Care Customer Service Sales Associate Name Role Phone Amarjit Mares Primary Care Provide r Encounter Details Date Type Department Care Team (Late Contact Info) Description 05/11/2000 Outpatient Historical HIS [facility] Jeremías Farias MD NO ADDRESS ON FILE Social History Tobacco Use Types Packs/Day Years Used Date Smoking Tobacco: Never Assessed Comments Unknown Sex and Gender Information Value Date Recorded Sex Assigned at Not on file Legal Sex Female 4:29 AM SENIOR INVESTMENT ANALYST Gender Identity Not on file Sexual Orientation Not on file documented as of this encounter Plan of Treatment Upcoming Encounters Date Type Department Care Team (Late Contact Info) Description 04/18/2025 2:45 PM SENIOR INVESTMENT ANALYST Office Visit [facility] Orthopedic Surgery at the [facility] [address] [facility] [facility] [place] [address] [place] [address] [place] [address] 05/04/2025 2:45 PM SENIOR INVESTMENT ANALYST Office Visit [facility] Oncology and Hematology - Paras [address] [place] [address] Nelson Cazares MD [address] [facility] [address] [place] [address] 06/13/2025 10:00 AM CDT Appointment [facility] [address] [facility] [place] [address] [place] [address] [place] [address] 06/13/2025 11:05 AM CDT Office Visit [facility] Breast Surgery [place] [address] [place] [address] [place] [address] [place] [address] 07/13/2025 10:00 AM CDT Office Visit [facility] Endocrinology [address] [place] [address] Shanice Llamas MD [address] [place] [address] 12/14/2025 11:00 AM CDT Office Visit [facility] Heart and Vascular - [facility] [address] [place] [address] Nam Coto MD [address] [facility] [address] [place] [address] documented as of this encounter Visit Diagnoses Not on filedocumented in this encounter Additional Health Concerns Infection Onset Date Last Indicated Resolved Time R/O COVID-19 12/28/2019 12/28/2019 12/30/2019 5:45 AM CDT COVID-19 12/28/2019 12/28/2019 01/27/2020 1:16 AM CDT documented as of this encounter Care Teams Customer Service Sales Associate Relationship Specialty [place] [address] [place] [address] PCP - General 01/02/25 documented as of this encounter
--- OUTSIDE RECORDS SUMMARY | 2025-01-26 12:32 | XMS_ITS | Encounter Summary ---
Author Organization [facility] Address [address] [place] [address] Care Team Providers Care Toilet Attendant Name Role Phone Amarjit Mares Primary Care Provide r Encounter Details Date Type Department Care Team (Late Contact Info) Description 05/11/2001 Outpatient Historical HIS [facility] Jeremías Farias MD NO ADDRESS ON FILE Social History Tobacco Use Types Packs/Day Years Used Date Smoking Tobacco: Never Assessed Comments Unknown Sex and Gender Information Value Date Recorded Sex Assigned at Not on file Legal Sex Female 4:29 AM CATALYTIC CONVERTER OPERATOR HELPER Gender Identity Not on file Sexual Orientation Not on file documented as of this encounter Plan of Treatment Upcoming Encounters Date Type Department Care Team (Late Contact Info) Description 04/18/2025 2:45 PM CATALYTIC CONVERTER OPERATOR HELPER Office Visit [facility] at the [facility] [address] [facility] [address] [place] [address] [place] [address] [place] [address] 05/04/2025 2:45 PM CATALYTIC CONVERTER OPERATOR HELPER Office Visit [facility] Oncology and Hematology - Paras [address] [place] [address] Nelson Cazares MD [address] [facility] [address] [place] [address] 06/13/2025 10:00 AM CDT Appointment [facility] [address] [place] [phone] [place] [address] [place] [address] 06/13/2025 11:05 AM CDT Office Visit [facility] Breast Surgery [address] [address] [place] [address] [place] [address] [place] [address] 07/13/2025 10:00 AM CDT Office Visit [facility] Endocrinology [address] [place] [address] Shanice Llamas MD [address] [place] [address] 12/14/2025 11:00 AM CDT Office Visit [facility] Heart and Vascular - [facility] [address] [place] [address] Nam Coto MD [address] [facility] [facility] [address] [place] [address] documented as of this encounter Visit Diagnoses Not on filedocumented in this encounter Additional Health Concerns Infection Onset Date Last Indicated Resolved Time R/O COVID-19 12/28/2019 12/28/2019 12/30/2019 5:45 AM CDT COVID-19 12/28/2019 12/28/2019 01/27/2020 1:16 AM CDT documented as of this encounter Care Teams Toilet Attendant Relationship Specialty [place] [address] [place] [address] PCP - General 01/02/25 documented as of this encounter
--- OUTSIDE RECORDS SUMMARY | 2025-01-26 12:32 | XMS_ITS | Encounter Summary ---
Author Organization [facility] Address [address] [place] [address] Care Team Providers Care Racker Octave Board Name Role Phone Amarjit Mares Primary Care Provide r Encounter Details Date Type Department Care Team (Late Contact Info) Description 10/15/2001 Outpatient Historical [facility] INTERNISTS Jeremías Farias MD NO ADDRESS ON FILE Social History Tobacco Use Types Packs/Day Years Used Date Smoking Tobacco: Never Assessed Comments Unknown Sex and Gender Information Value Date Recorded Sex Assigned at Not on file Legal Sex Female 4:29 AM MAINTENANCE COORDINATOR Gender Identity Not on file Sexual Orientation Not on file documented as of this encounter Plan of Treatment Upcoming Encounters Date Type Department Care Team (Late Contact Info) Description 04/18/2025 2:45 PM MAINTENANCE COORDINATOR [facility] at the [facility] [address] [place] [address] [place] [address] [place] [address] 05/04/2025 2:45 PM MAINTENANCE COORDINATOR [facility] Oncology and Hematology - Par[address] [place] [address] Nelson Cazares MD [address] [facility] [address] [place] [address] 06/13/2025 10:00 AM CDT Appointment [facility] J[address] Couch [address] [facility] [place] [phone] [place] [address] [place] [phone] 06/13/2025 11:05 AM CDT Office Visit [facility] Jazmin Couch [address] [place] [phone] [place] [address] [place] [address] 07/13/2025 10:00 AM CDT [facility] Endocrinology [address] [place] [address] Shanice Llamas MD [address] [place] [address] 12/14/2025 11:00 AM CDT [facility] Heart and Vascular - [facility] [address] [place] [address] Nam Coto MD [address] [facility] [address] [place] [address] documented as of this encounter Visit Diagnoses Not on filedocumented in this encounter Additional Health Concerns Infection Onset Date Last Indicated Resolved Time R/O COVID-19 12/28/2019 12/28/2019 12/30/2019 5:45 AM CDT COVID-19 12/28/2019 12/28/2019 01/27/2020 1:16 AM CDT documented as of this encounter Care Teams Racker Octave Board Relationship Specialty [place] [address] [place] [address] PCP - General 01/02/25 documented as of this encounter
--- OUTSIDE RECORDS SUMMARY | 2025-01-26 12:32 | XMS_ITS | Encounter Summary ---
Author Organization [facility] Address [address] [place] [address] Care Team Providers Care Armor Officer Name Role Phone Amarjit Mares Primary Care Provide r Encounter Details Date Type Department Care Team (Late Contact Info) Description 12/30/2000 Outpatient Historical HIS G [facility] INTERNISTS Jeremías Farias MD NO ADDRESS ON FILE Social History Tobacco Use Types Packs/Day Years Used Date Smoking Tobacco: Never Assessed Comments Unknown Sex and Gender Information Value Date Recorded Sex Assigned at Not on file Legal Sex Female 4:29 AM VICE PRESIDENT PAYER Gender Identity Not on file Sexual Orientation Not on file documented as of this encounter Plan of Treatment Upcoming Encounters Date Type Department Care Team (Late Contact Info) Description 04/18/2025 2:45 PM VICE PRESIDENT PAYER Office Visit [facility] Orthopedic Surgery at the [facility] [address] [facility] [address] [place] [address] [place] [address] [place] [address] 05/04/2025 2:45 PM VICE PRESIDENT PAYER Office Visit [facility] Oncology and Hematology - Paras [address] [place] [address] Nelson Cazares MD [address] [facility] [address] [place] [address] 06/13/2025 10:00 AM CDT Appointment [facility] [address] [place] [phone] [place] [address] [place] [phone] 06/13/2025 11:05 AM CDT Office Visit [facility] Breast Surgery Jazmin Couch [address] [place] [phone] [place] [address] [place] [address] 07/13/2025 10:00 AM CDT Office Visit [facility] Endocrinology [address] [place] [address] Shanice Llamas MD [address] [place] [address] 12/14/2025 11:00 AM CDT Office Visit [facility] Heart and Vascular - [facility] [address] [place] [address] Nam Coto MD [address] [facility] [address] [place] [address] documented as of this encounter Visit Diagnoses Not on filedocumented in this encounter Additional Health Concerns Infection Onset Date Last Indicated Resolved Time R/O COVID-19 12/28/2019 12/28/2019 12/30/2019 5:45 AM CDT COVID-19 12/28/2019 12/28/2019 01/27/2020 1:16 AM CDT documented as of this encounter Care Teams Armor Officer Relationship Specialty [place] [address] [place] [address] PCP - General 01/02/25 documented as of this encounter
--- OUTSIDE RECORDS SUMMARY | 2025-01-26 12:33 | XMS_ITS | Encounter Summary ---
Author Organization [facility] Address [address] [place] [address] Care Team Providers Care Copy Center Associate Name Role Phone Amarjit Mares Primary Care Provide r Encounter Details Date Type Department Care Team (Late st Contact Info) Description 02/13/2005 Outpatient Historical [facility], [address] Jeremías Farias MD NO ADDRESS ON FILE Social History Tobacco Use Types Packs/Day Years Used Date Smoking Tobacco: Never Assessed Comments Unknown Sex and Gender Information Value Date Recorded Sex Assigned at Not on file Legal Sex Female 4:29 AM ASSISTANT COMMUNITY MANAGER Gender Identity Not on file Sexual Orientation Not on file documented as of this encounter Plan of Treatment Upcoming Encounters Date Type Department Care Team (Late st Contact Info) Description 04/18/2025 2:45 PM ASSISTANT COMMUNITY MANAGER Office Visit [facility] Orthopedic Surgery at the [facility] [address] [facility] [address] [place] [address] [place] [address] [place] [address] 05/04/2025 2:45 PM ASSISTANT COMMUNITY MANAGER Office Visit [facility] Oncology and Hematology - Paras [address] [place] [address] Nelson Cazares MD [address] [facility] [address] [place] [address] 06/13/2025 10:00 AM CDT Appointment [facility] Jazmin [address]ouch [address] [place] [phone] [place] [address] [place] [phone] 06/13/2025 11:05 AM CDT Office Visit [facility] Breast Surgery [address] [place] [address] [place] [address] [facility] [address] 07/13/2025 10:00 AM CDT Office Visit [facility] Endocrinology [address] [place] [address] Shanice Llamas MD [address] [place] [address] 12/14/2025 11:00 AM CDT Office Visit [facility] Heart and Vascular - [place] [address] [place] [address] Nam Coto MD [address] [facility] [address] [place] [address] documented as of this encounter Procedures Procedure Name Priority Date/Time Associated Diagnosis Comments CBC WITH DIFFERENTIAL Routine 02/13/2005 1:35 PM ASSISTANT COMMUNITY MANAGER CBC WITH DIFFERENTIAL Routine 02/13/2005 1:35 PM ASSISTANT COMMUNITY MANAGER URINALYSIS W/REFLEX MICROSCOPIC Routine 02/13/2005 1:35 PM ASSISTANT COMMUNITY MANAGER SEDIMENTATION RATE Routine 02/13/2005 1: 35 PM ASSISTANT COMMUNITY MANAGER COMPREHENSIVE METABOLIC PANEL Routine 02/13/2005 1:35 PM ASSISTANT COMMUNITY MANAGER documented in this encounter Results * URINALYSIS (02/13/2005 1:35 PM ASSISTANT COMMUNITY MANAGER) COLOR UA Yellow INTERFACE SYSTEM CLARITY UA [...] Negative Negative INTERFACE SYSTEM 02/13/2005 1:35 PM ASSISTANT COMMUNITY MANAGER Jeremías Farias MD URINE ORDERABLES Final Result Performing Organization Address [facility] Phone Number INTERFACE SYSTEM Refer to clinic/hospital department * (ABNORMAL) CBC WITH DIFFERENTIAL (02/13/2005 1:35 PM ASSISTANT COMMUNITY MANAGER) NEUTROPHILS 67 45 - 70 % INTERFAC [...] 0.20 K/uL INTERFACE SYSTEM 02/13/2005 1:35 PM ASSISTANT COMMUNITY MANAGER Jeremías Farias MD HEMATOLOGY ORDERABLES Final Re sult Performing Organization Address City/[facility]/ZIP Co de Phone Number INTERFACE SYSTEM Refer to clinic/hospital department * (ABNORMAL) CBC WITH DIFFERENTIAL (02/13/2005 1:35 PM ASSISTANT COMMUNITY MANAGER) WBC 10.9(H) 4.0 - 9.8 K/uL INTERFACE [...] 12.4 fL INTERFACE SYSTEM 02/13/2005 1:35 PM ASSISTANT COMMUNITY MANAGER Jeremías Farias MD HEMATOLOGY ORDERABLES Final Re sult Performing Organization Address [facility] Phone Number INTERFACE SYSTEM Refer to clinic/hospital department * SEDIMENTATION RATE (02/13/2005 1:35 PM ASSISTANT COMMUNITY MANAGER) ESR (SEDIMENTATION RATE) 10 0 - 30 mm/hr INTERFACE SYSTEM 02/13/2005 1:35 PM ASSISTANT COMMUNITY MANAGER us Jeremías Farias MD HEMATOLOGY ORDERABLES Final Re sult Performing Organization Address [facility] Phone Number INTERFACE SYSTEM Refer to clinic/hospital department * (ABNORMAL) COMPREHENSIVE METABOLIC PANEL (02/13/2005 1:35 PM ASSISTANT COMMUNITY MANAGER) GLUCOSE 144(H) 65 - 109 mg/dL INTERFACE [...] 30 mmol/L INTERFACE SYSTEM 02/13/2005 1:35 PM ASSISTANT COMMUNITY MANAGER us Jeremías Farias MD CHEMISTRY ORDERABLES Final Res ult INTERFACE SYSTEM Refer to clinic/hospital department documented in this encounter Visit Diagnoses Not on filedocumented in this encounter Additional Health Concerns Infection Onset Date Last Indicated Resolved Time R/O COVID-19 12/28/2019 12/28/2019 12/30/2019 5:45 AM CDT COVID-19 12/28/2019 12/28/2019 01/27/2020 1:16 AM CDT documented as of this encounter Care Teams Copy Center Associate Relationship Specialty [place] [address] [facility] [address] [place] [address] PCP - General 01/02/25 documented as of this encounter
--- OUTSIDE RECORDS SUMMARY | 2025-01-26 12:33 | XMS_ITS | Encounter Summary ---
Author Organization [facility] Address [address] [place] [address] Care Team Providers Care Parts Driver Name Role Phone Amarjit Mares Primary Care Provide r Encounter Details Date Type Department Care Team (Late Contact Info) Description 07/27/2003 Outpatient Historical [facility] G [facility] INTERNISTS Jeremías Farias MD NO ADDRESS ON FILE Social History Tobacco Use Types Packs/Day Years Used Date Smoking Tobacco: Never Assessed Comments Unknown Sex and Gender Information Value Date Recorded Sex Assigned at Not on file Legal Sex Female 4:29 AM MULCHER OPERATOR Gender Identity Not on file Sexual Orientation Not on file documented as of this encounter Plan of Treatment Upcoming Encounters Date Type Department Care Team (Late Contact Info) Description 04/18/2025 2:45 PM MULCHER OPERATOR Office Visit [facility] Orthopedic Surgery at the [facility] [address] [place] [address] [place] [address] [place] [address] 05/04/2025 2:45 PM MULCHER OPERATOR Office Visit [facility] Oncology and Hematology - Paras [address] [place] [address] Nelson Cazares MD [address] [facility] [address] [place] [address] 06/13/2025 10:00 AM CDT Appointment [facility] [address]az[address] [facility] [place] [phone] [place] [address] [place] [phone] 06/13/2025 11:05 AM CDT Office Visit [facility] Breast Surgery Jazmin Couch [address] [place] [phone] [place] [address] [place] [address] 07/13/2025 10:00 AM CDT Office Visit [facility] Endocrinology [address] [place] [address] Shanice Llamas MD [address] [place] [address] 12/14/2025 11:00 AM CDT Office Visit [facility] Heart and Vascular - [facility] [address] [place] [address] Nam Coto MD [address] [facility] [address] [place] [address] documented as of this encounter Visit Diagnoses Not on filedocumented in this encounter Additional Health Concerns Infection Onset Date Last Indicated Resolved Time R/O COVID-19 12/28/2019 12/28/2019 12/30/2019 5:45 AM CDT COVID-19 12/28/2019 12/28/2019 01/27/2020 1:16 AM CDT documented as of this encounter Care Teams Parts Driver Relationship Specialty [place] [address] [address] [place] [address] PCP - General 01/02/25 documented as of this encounter
--- OUTSIDE RECORDS SUMMARY | 2025-01-26 12:33 | XMS_ITS | Encounter Summary ---
Author Organization [facility] Address [address] [place] [address] Care Team Providers Care Communications Billing Analyst Name Role Phone Amarjit Mares Primary Care Provide r Encounter Details Date Type Department Care Team (Late Contact Info) Description 02/13/2005 Outpatient Historical [facility] G [facility] INTERNISTS Jeremías Farias MD NO ADDRESS ON FILE Social History Tobacco Use Types Packs/Day Years Used Date Smoking Tobacco: Never Assessed Comments Unknown Sex and Gender Information Value Date Recorded Sex Assigned at Not on file Legal Sex Female 4:29 AM SKATES OPERATOR Gender Identity Not on file Sexual Orientation Not on file documented as of this encounter Plan of Treatment Upcoming Encounters Date Type Department Care Team (Late Contact Info) Description 04/18/2025 2:45 PM SKATES OPERATOR Office Visit [facility]opedic Surgery at the [facility] [address] [facility] [address] [place] [address] [place] [address] [place] [address] 05/04/2025 2:45 PM SKATES OPERATOR Office Visit [facility] Oncology and Hematology - Paras [address] [place] [address] Nelson Cazares MD [address] [facility] [address] [place] [address] 06/13/2025 10:00 AM CDT Appointment [facility] [address] [facility] [place] [phone] [place] [address] [place] [address] 06/13/2025 11:05 AM CDT Office Visit [facility] Breast Surgery Jazmin Couch [address] [place] [phone] [place] [address] [place] [address] 07/13/2025 10:00 AM CDT Office Visit [facility] Endocrinology [address] [place] [address] Shanice Llamas MD [address] [facility] [address] [place] [address] 12/14/2025 11:00 AM CDT Office Visit [facility] Heart and Vascular - [facility] [address] [place] [address] Nam Coto MD [address] [facility] [address] [place] [address] documented as of this encounter Visit Diagnoses Not on filedocumented in this encounter Additional Health Concerns Infection Onset Date Last Indicated Resolved Time R/O COVID-19 12/28/2019 12/28/2019 12/30/2019 5:45 AM CDT COVID-19 12/28/2019 12/28/2019 01/27/2020 1:16 AM CDT documented as of this encounter Care Teams Communications Billing Analyst Relationship Specialty [place] [address] [place] [address] PCP - General 01/02/25 documented as of this encounter
--- OUTSIDE RECORDS SUMMARY | 2025-01-26 12:33 | XMS_ITS | Encounter Summary ---
Author Organization [facility] Address [address] [place] [address] Care Team Providers Care Sewer Cleaner Name Role Phone Amarjit Mares Primary Care Provide r Encounter Details Date Type Department Care Team (Late Contact Info) Description 02/13/2005 Outpatient Historical HIS G [facility] INTERNISTS Jeremías Farias MD NO ADDRESS ON FILE Social History Tobacco Use Types Packs/Day Years Used Date Smoking Tobacco: Never Assessed Comments Unknown Sex and Gender Information Value Date Recorded Sex Assigned at Not on file Legal Sex Female 4:29 AM DEVELOPMENT ARCHITECT Gender Identity Not on file Sexual Orientation Not on file documented as of this encounter Plan of Treatment Upcoming Encounters Date Type Department Care Team (Late Contact Info) Description 04/18/2025 2:45 PM DEVELOPMENT ARCHITECT Office Visit [facility] Orthopedic Surgery at the [facility] [address] [address] [place] [address] [place] [address] [place] [address] 05/04/2025 2:45 PM DEVELOPMENT ARCHITECT Office Visit [facility] Oncology and Hematology - Paras [address] [place] [address] Nelson Cazares MD [address] [facility] [address] [place] [address] 06/13/2025 10:00 AM CDT Appointment [facility] [address] [place] [phone] [place] [address] [place] [phone] 06/13/2025 11:05 AM CDT Office Visit [facility] Breast Surgery Jazmin Couch [address] [place] [phone] [place] [address] [place] [address] 07/13/2025 10:00 AM CDT Office Visit [facility] Endocrinology [address] [place] [address] Shanice Llamas MD [address] [place] [address] 12/14/2025 11:00 AM CDT Office Visit [facility] Heart and Vascular - [address] [place] [address] Nam Coto MD [address] [facility] [address] [place] [address] documented as of this encounter Visit Diagnoses Not on filedocumented in this encounter Additional Health Concerns Infection Onset Date Last Indicated Resolved Time R/O COVID-19 12/28/2019 12/28/2019 12/30/2019 5:45 AM CDT COVID-19 12/28/2019 12/28/2019 01/27/2020 1:16 AM CDT documented as of this encounter Care Teams Sewer Cleaner Relationship Specialty [place] [address] [address] [place] [address] PCP - General 01/02/25 documented as of this encounter
--- OUTSIDE RECORDS SUMMARY | 2025-01-26 12:33 | XMS_ITS | Encounter Summary ---
Author Organization [facility] Address [address] [place] [address] Care Team Providers Care Reel Assembler Name Role Phone Amarjit Mares Primary [...] on file Legal Sex Female 4:29 AM PHOTOGRAPHER MOTION PICTURE Gender Identity Not on file Sexual Orientation Not on file documented as of this encounter Plan of Treatment Upcoming Encounters Date Type Department Care Team (Late st Contact Info) Description 04/18/2025 2:45 PM PHOTOGRAPHER MOTION PICTURE Office Visit [facility] Orthopedic Surgery at the [facility] [address] [facility] [address] [place] [address] [place] [address] [place] [address] 05/04/2025 2:45 PM PHOTOGRAPHER MOTION PICTURE Office Visit [facility] Oncology and Hematology - Paras [address] [place] [address] Nelson Cazares MD [address] [facility] [address] [place] [address] 06/13/2025 10:00 AM CDT Appointment [facility] [address] [place] [phone] [place] [address] [place] [address] 06/13/2025 11:05 AM CDT Office Visit [facility] Breast Surgery [place] Couch [address] [place] [address] [place] [address] [place] [address] 07/13/2025 10:00 AM CDT Office Visit [facility] Endocrinology [address] [place] [address] Shaince Llamas MD [address] [place] [address] 12/14/2025 11:00 AM CDT Office Visit [facility] Heart and Vascular - [facility] [address] [place] [address] Nam Coto MD [address] [facility] [address] [place] [address] documented as of this encounter Visit Diagnoses Diagnosis Headache(784.0)- Primary Headache documented in this encounter Additional Health Concerns Infection Onset Date Last Indicated Resolved Time R/O COVID-19 12/28/2019 12/28/2019 12/30/2019 5:45 AM CDT COVID-19 12/28/2019 12/28/2019 01/27/2020 1:16 AM CDT documented as of this encounter Care Teams Reel Assembler Relationship Specialty [place] [address] [facility] [address] [place] [address] PCP - General 01/02/25 documented as of this encounter
--- OUTSIDE RECORDS SUMMARY | 2025-01-26 12:33 | XMS_ITS | Encounter Summary ---
Author Organization [facility] Address [address] [place] [address] Care Team Providers Care J2Ee Application Developer Name Role Phone Amarjit Mares Primary Care Provide r Encounter Details Date Type Department Care Team (Late Contact Info) Description 10/16/2003 Outpatient Historical [facility] INTERNISTS Jeremías Farias MD NO ADDRESS ON FILE Social History Tobacco Use Types Packs/Day Years Used Date Smoking Tobacco: Never Assessed Comments Unknown Sex and Gender Information Value Date Recorded Sex Assigned at Not on file Legal Sex Female 4:29 AM X RAY TECH Gender Identity Not on file Sexual Orientation Not on file documented as of this encounter Plan of Treatment Upcoming Encounters Date Type Department Care Team (Late Contact Info) Description 04/18/2025 2:45 PM X RAY TECH Office Visit [facility] Orthopedic Surgery at the [facility] [address] [facility] [address] [place] [address] [place] [address] [place] [address] 05/04/2025 2:45 PM X RAY TECH Office Visit [facility] Oncology and Hematology - Paras [address] [place] [address] Nelson Cazares MD [address] [facility] [address] [place] [address] 06/13/2025 10:00 AM CDT Appointment [facility] [address] [place] [phone] [place] [address] [place] [phone] 06/13/2025 11:05 AM CDT Office Visit [facility] Breast Surgery J[address]ouch [address] [place] [phone] [place] [address] [place] [address] 07/13/2025 10:00 AM CDT Office Visit [facility] Endocrinology [address] [place] [address] Shanice Llamas MD [address] [place] [address] 12/14/2025 11:00 AM CDT Office Visit [facility] Heart and Vascular - [facility] [address] [place] [address] Nam Coto MD [address] [facility] [address] [place] [address] documented as of this encounter Visit Diagnoses Not on filedocumented in this encounter Additional Health Concerns Infection Onset Date Last Indicated Resolved Time R/O COVID-19 12/28/2019 12/28/2019 12/30/2019 5:45 AM CDT COVID-19 12/28/2019 12/28/2019 01/27/2020 1:16 AM CDT documented as of this encounter Care Teams J2Ee Application Developer Relationship Specialty [place] [address] [address] [place] [address] PCP - General 01/02/25 documented as of this encounter
--- OUTSIDE RECORDS SUMMARY | 2025-01-26 12:33 | XMS_ITS | Encounter Summary ---
Author Organization [facility] Address [address] [place] [address] Care Team Providers Care Refined Syrup Operator Name Role Phone Amarjit Mares Primary Care Provide r Encounter Details Date Type Department Care Team (Late st Contact Info) Description 08/02/2004 Outpatient Historical [facility], [address] Jeremías Farias MD NO ADDRESS ON FILE Social History Tobacco Use Types Packs/Day Years Used Date Smoking Tobacco: Never Assessed Comments Unknown Sex and Gender Information Value Date Recorded Sex Assigned at Not on file Legal Sex Female 4:29 AM DIRECTOR OF PHYSICAL SECURITY Gender Identity Not on file Sexual Orientation Not on file documented as of this encounter Plan of Treatment Upcoming Encounters Date Type Department Care Team (Late st Contact Info) Description 04/18/2025 2:45 PM DIRECTOR OF PHYSICAL SECURITY [facility] at the [facility] [address] [place] [address] [place] [address] [place] [address] 05/04/2025 2:45 PM DIRECTOR OF PHYSICAL SECURITY Office Visit [facility] Oncology and Hematology - Paras [address] [place] [address] Nelson Cazares MD [address] [facility] [address] [place] [address] 06/13/2025 10:00 AM CDT Appointment [facility] [address] [place] [phone] [place] [address] [place] [phone] 06/13/2025 11:05 AM CDT Office Visit [facility] [address] [place] [address] [place] [address] [place] [address] 07/13/2025 10:00 AM CDT Office Visit [facility] Endocrinology [address] [place] [address] Shanice Llamas MD [address] [facility] [address] [place] [address] 12/14/2025 11:00 AM CDT Office Visit [facility] - [facility] [address] [place] [address] Nam Coto MD [address] [facility] [address] [place] [address] documented as of this encounter [...] URINE ORDERABLES Final Result Performing Organization Address [facility] Phone Number INTERFACE SYSTEM Refer to [...] ORDERABLES Final Re sult Performing Organization Address [facility] Phone Number INTERFACE SYSTEM Refer to [...] ORDERABLES Final Re sult Performing Organization Address [facility] Co de Phone Number INTERFACE SYSTEM Refer [...] ORDERABLES Final Res ult Performing Organization Address [facility] Co de Phone Number INTERFACE SYSTEM Refer to clinic/hospital department documented in this encounter Visit Diagnoses Not on filedocumented in this encounter Additional Health Concerns Infection Onset Date Last Indicated Resolved Time R/O COVID-19 12/28/2019 12/28/2019 12/30/2019 5:45 AM CDT COVID-19 12/28/2019 12/28/2019 01/27/2020 1:16 AM CDT documented as of this encounter Care Teams Refined Syrup Operator Relationship Specialty [place] [address] [phone] PCP - General 01/02/25 documented as of this encounter
--- OUTSIDE RECORDS SUMMARY | 2025-01-26 12:33 | XMS_ITS | Encounter Summary ---
Author Organization [facility] Address [address] [place] [address] Care Team Providers Care Negative Retoucher Name Role Phone Amarjit Mares Primary Care Provide r Encounter Details Date Type Department Care Team (Late Contact Info) Description 08/02/2004 Outpatient Historical [facility] INTERNISTS Jeremías Farias MD NO ADDRESS ON FILE Social History Tobacco Use Types Packs/Day Years Used Date Smoking Tobacco: Never Assessed Comments Unknown Sex and Gender Information Value Date Recorded Sex Assigned at Not on file Legal Sex Female 4:29 AM BOX TOE BUFFER Gender Identity Not on file Sexual Orientation Not on file documented as of this encounter Plan of Treatment Upcoming Encounters Date Type Department Care Team (Late Contact Info) Description 04/18/2025 2:45 PM BOX TOE BUFFER Office Visit [facility] Orthopedic Surgery at the [facility] [address] [address] [place] [address] [place] [address] [place] [address] 05/04/2025 2:45 PM BOX TOE BUFFER Office Visit [facility] Oncology and Hematology - Paras [address] [place] [address] Nelson Cazares MD [address] [facility] [address] [place] [address] 06/13/2025 10:00 AM CDT Appointment [facility] [address] [facility] [place] [phone] [place] [address] [place] [phone] 06/13/2025 11:05 AM CDT Office Visit [facility] Breast Surgery [address] [place] [phone] [place] [address] [place] [address] 07/13/2025 10:00 AM CDT Office Visit [facility] Endocrinology [address] [place] [address] Shanice Llamas MD [address] [place] [address] 12/14/2025 11:00 AM CDT Office Visit [facility] Heart and Vascular - [facility] [address] [place] [address] Nam Coto MD [address] [facility] [address] [facility] [address] [place] [address] documented as of this encounter Visit Diagnoses Not on filedocumented in this encounter Additional Health Concerns Infection Onset Date Last Indicated Resolved Time R/O COVID-19 12/28/2019 12/28/2019 12/30/2019 5:45 AM CDT COVID-19 12/28/2019 12/28/2019 01/27/2020 1:16 AM CDT documented as of this encounter Care Teams Negative Retoucher Relationship Specialty [place] [address] [place] [address] PCP - General 01/02/25 documented as of this encounter
--- OUTSIDE RECORDS SUMMARY | 2025-01-26 12:33 | XMS_ITS | Encounter Summary ---
Author Organization [facility] Address [address] [place] [address] Care Team Providers Care Hotel Guest Service Agent Name Role Phone Amarjit Mares Primary Care Provide r Encounter Details Date Type Department Care Team (Late st Contact Info) Description 12/13/2003 Outpatient Historical [facility] Boy Kaufman MD [address] [place] [address] ESOPHAGITIS, UNSPECIFIED (Primary Dx) Social History Tobacco Use Types Packs/Day Years Used Date Smoking Tobacco: Never Assessed Comments Unknown Sex and Gender Information Value Date Recorded Sex Assigned at Not on file Legal Sex Female 4:29 AM METER SETTER Gender Identity Not on file Sexual Orientation Not on file documented as of this encounter Plan of Treatment Upcoming Encounters Date Type Department Care Team (Late st Contact Info) Description 04/18/2025 2:45 PM METER SETTER Office Visit [facility] at the [facility] [address] [facility] [address] [place] [address] [place] [address] [place] [address] 05/04/2025 2:45 PM METER SETTER Office Visit [facility] Oncology and Hematology - Paras [address] [place] [address] Nelson Cazares MD [address] [facility] [address] [place] [address] 06/13/2025 10:[address] [facility] [place] [address] [place] [address] [place] [address] [place] [address] 06/13/2025 11:05 AM CDT Office Visit [facility] Breast [facility] [address] [place] [address] [place] [address] [place] [address] 07/13/2025 10:00 AM CDT Office Visit [facility] Endocrinology [address] [facility] [address] [place] [address] Shanice Llamas MD [address] [facility] [address] [place] [address] 12/14/2025 11:00 AM CDT Office Visit [facility] Heart and Vascular - [facility] [address] [facility] [facility] [address] [place] [address] Nam Coto MD [address] [facility] [address] [place] [address] documented as of this encounter Visit Diagnoses Diagnosis Esophagitis, unspecified- Primary documented in this encounter Additional Health Concerns Infection Onset Date Last Indicated Resolved Time R/O COVID-19 12/28/2019 12/28/2019 12/30/2019 5:45 AM CDT COVID-19 12/28/2019 12/28/2019 01/27/2020 1:16 AM CDT documented as of this encounter Care Teams Hotel Guest Service Agent Relationship Specialty [place] [address] [facility] [address] [place] [address] PCP - General 01/02/25 documented as of this encounter
--- OUTSIDE RECORDS SUMMARY | 2025-01-26 12:33 | XMS_ITS | Encounter Summary ---
Author Organization [facility] Address [address] [place] [address] Care Team Providers Care Arc Welder Apprentice Name Role Phone Amarjit Mares Primary Care Provide r Encounter Details Date Type Department Care Team (Latest Contact Info) Description 10/16/2003 Outpatient Historical [facility] Jeremías Torres MD NO ADDRESS ON FILE OTHER GENERAL SYMPTOMS (Primary Dx) Social History Tobacco Use Types Packs/Day Years Used Date Smoking Tobacco: Never Assessed Comments Unknown Sex and Gender Information Value Date Recorded Sex Assigned at Not on file Legal Sex Female 4:29 AM SENIOR MANAGER QUALITY ASSURANCE Gender Identity Not on file Sexual Orientation Not on file documented as of this encounter Plan of Treatment Upcoming Encounters Date Type Department Care Team (Late st Contact Info) Description 04/18/2025 2:45 PM SENIOR MANAGER QUALITY ASSURANCE Office Visit [facility] Orthopedic Surgery at the [facility] [address] [facility] [address] [place] [address] [place] [address] [place] [address] 05/04/2025 2:45 PM SENIOR MANAGER QUALITY ASSURANCE Office Visit [facility] Oncology and Hematology - Paras [address] [place] [address] Nelson Cazares MD [address] [facility] [address] [place] [address] 06/13/2025 10:00 AM CDT Appointment [facility] [address] [place] [address] [place] [address] [place] [phone] 06/13/2025 11:05 AM CDT Office Visit [facility] Breast Surgery [place] [address] [place] [address] [place] [address] [place] [address] 07/13/2025 10:00 AM CDT Office Visit [facility] Endocrinology [address] [place] [address] Shanice Llamas MD [address] [place] [address] 12/14/2025 11:00 AM CDT Office Visit [facility] Heart and Vascular - [facility] [address] [place] [address] Nam Coto MD [address] [facility] [address] [place] [address] documented as of this encounter Visit Diagnoses Diagnosis Other general symptoms(780.99)- Primary Other general symptoms documented in this encounter Additional Health Concerns Infection Onset Date Last Indicated Resolved Time R/O COVID-19 12/28/2019 12/28/2019 12/30/2019 5:45 AM CDT COVID-19 12/28/2019 12/28/2019 01/27/2020 1:16 AM CDT documented as of this encounter Care Teams Arc Welder Apprentice Relationship Specialty [place] [address] [facility] [address] [place] [address] PCP - General 01/02/25 documented as of this encounter
--- OUTSIDE RECORDS SUMMARY | 2025-01-26 12:33 | XMS_ITS | Encounter Summary ---
Author Organization [facility] Address [address] [place] [address] Care Team Providers Care Implementation Coordinator Name Role Phone Amarjit Mares Primary Care [...] on file Legal Sex Female 4:29 AM DEEP FAT COOK FRY Gender Identity Not on file Sexual Orientation Not on file documented as of this encounter Plan of Treatment Upcoming Encounters Date Type Department Care Team (Late st Contact Info) Description 04/18/2025 2:45 PM DEEP FAT COOK FRY Office Visit [facility] Orthopedic Surgery at the [facility] [address] [facility] [address] [place] [address] [place] [address] [place] [address] 05/04/2025 2:45 PM DEEP FAT COOK FRY Office Visit [facility] Oncology and Hematology - Paras [address] [place] [address] Nelson Cazares MD [address] [facility] [address] [place] [address] 06/13/2025 10:00 AM CDT Appointment [facility] [address] [place] [phone] [place] [address] [place] [address] 06/13/2025 11:05 AM CDT Office Visit [facility] Breast Surgery [place] [address] [place] [address] [place] [address] [place] [address] 07/13/2025 10:00 AM CDT Office Visit [facility] Endocrinology [address] [place] [address] Shanice Llamas MD [address] [place] [address] 12/14/2025 11:00 AM CDT Office Visit [facility] Heart and Vascular - [facility] [place] [facility] [address] [place] [address] Nam Coto MD [address] [facility] [address] [place] [address] documented as of this encounter Visit Diagnoses Diagnosis Unspecified sinusitis (chronic)- Primary documented in this encounter Additional Health Concerns Infection Onset Date Last Indicated Resolved Time R/O COVID-19 12/28/2019 12/28/2019 12/30/2019 5:45 AM CDT COVID-19 12/28/2019 12/28/2019 01/27/2020 1:16 AM CDT documented as of this encounter Care Teams Implementation Coordinator Relationship Specialty [place] [address] [facility] [address] [place] [address] PCP - General 01/02/25 documented as of this encounter
--- OUTSIDE RECORDS SUMMARY | 2025-01-26 12:33 | XMS_ITS | Encounter Summary ---
Author Organization [facility] Address [address] [place] [address] Care Team Providers Care Firmware Developer Name Role Phone Amarjit Mares Primary Care Provide r Encounter Details Date Type Department Care Team (Late Contact Info) Description 06/06/2004 Outpatient Historical [facility] INTERNISTS Jeremías Farias MD NO ADDRESS ON FILE Social History Tobacco Use Types Packs/Day Years Used Date Smoking Tobacco: Never Assessed Comments Unknown Sex and Gender Information Value Date Recorded Sex Assigned at Not on file Legal Sex Female 4:29 AM PASTE MAKER Gender Identity Not on file Sexual Orientation Not on file documented as of this encounter Plan of Treatment Upcoming Encounters Date Type Department Care Team (Late Contact Info) Description 04/18/2025 2:45 PM PASTE MAKER Office Visit [facility] Orthopedic Surgery at the [facility] [address] [facility] [address] [place] [address] [place] [address] [place] [address] 05/04/2025 2:45 PM PASTE MAKER Office Visit [facility] Oncology and Hematology - Paras [address] [place] [address] Nelson Cazares MD [address] [facility] [address] [place] [address] 06/13/2025 10:00 AM CDT Appointment [facility] [address] [facility] [place] [phone] [place] [address] [place] [address] 06/13/2025 11:05 AM CDT Office Visit [facility] Breast Surgery [address] [place] [phone] [place] [address] [place] [address] 07/13/2025 10:00 AM CDT Office Visit [facility] Endocrinology [address] [place] [address] Shanice Llamas MD [address] [place] [address] 12/14/2025 11:00 AM CDT Office Visit [facility] Heart and Vascular - [facility] [address] [place] [address] Nam Coto MD [address] [facility] [address] [place] [address] documented as of this encounter Visit Diagnoses Not on filedocumented in this encounter Additional Health Concerns Infection Onset Date Last Indicated Resolved Time R/O COVID-19 12/28/2019 12/28/2019 12/30/2019 5:45 AM CDT COVID-19 12/28/2019 12/28/2019 01/27/2020 1:16 AM CDT documented as of this encounter Care Teams Firmware Developer Relationship Specialty [place] [address] [place] [address] PCP - General 01/02/25 documented as of this encounter
--- OUTSIDE RECORDS SUMMARY | 2025-01-26 12:33 | XMS_ITS | Encounter Summary ---
Author Organization [facility] Address 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 Gender Identity Not on file Sexual Orientation Not on file documented as of this encounter Plan of Treatment Upcoming Encounters Date Type Department Care Team (Late Contact Info) Description 04/18/2025 2:45 PM 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 Office Visit [facility] Orthopedic Surgery at the [facility] [address] [place] [address] [place] [address] [place] [address] 05/04/2025 2:45 PM 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 Office Visit [facility] Oncology and Hematology - [place] [address] [place] [address] Nelson Cazares MD [address] [place] [address] 06/13/2025 10:00 AM CDT Appointment [facility] Jazmin [address]ouch [address] [facility] [place] [phone] [place] [address] [place] [phone] 06/13/2025 11:05 AM CDT Office Visit [facility] Breast Surgery Jazmin Couch [address] [place] [phone] [place] [address] [place] [address] 07/13/2025 10:00 AM CDT Office Visit [facility] Endocrinology [address] [place] [address] Shanice Llamas MD [address] [place] [address] 12/14/2025 11:00 AM CDT Office Visit [facility] Heart and Vascular - [facility] [address] [place] [address] Nam Coto MD [address] [place] [address] documented as of this encounter Visit Diagnoses Not on filedocumented in this encounter Additional Health Concerns Infection Onset Date Last Indicated Resolved Time R/O COVID-19 12/28/2019 12/28/2019 12/30/2019 5:45 AM CDT COVID-19 12/28/2019 12/28/2019 01/27/2020 1:16 AM CDT documented as of this encounter Care Teams Gaming Commissioner Relationship Specialty [place] [address] [place] [address] PCP - General 01/02/25 documented as of this encounter
--- OUTSIDE RECORDS SUMMARY | 2025-01-26 12:33 | XMS_ITS | Clinical Summary ---
Author Organization [facility] Address [address] [place] [address] Phone Care Team Providers Care Telecommunications Consultant Name Role Phone Amarjit Mares DO Primary Care Provide r Allergies Active Allergy Reactions Criticality Noted Date Comments Lisinopril Cough Low 05/17/2010 Penicillins Rash Low 09/16/2006 Penicillins Rash Low 06/09/2022 Semaglutide Abdominal Pain,Nausea and Vomiting Low 07/21/2018 Medications lancets (One Touch Delica) 33 gauge 4 times daily. 400 Each 1 018 Active cholecalciferol, Vitamin D3, 125 mcg (5,000 unit) Capsule Take 50,000 Units by mouth. Active famotidine (PEPCID) 40 mg tablet TAKE 1 TABLET(40 MG) BY MOUTH DAILY AT BEDTIME 90 Tablet 024 Active baclofen (LIORESAL) 10 mg tabletIndications :Back spasm Take 1 Tablet (10 mg) by mouth 3 times daily as needed for Pain. 60 Tablet 025 Active fluticasone propionate (FLONASE) 50 mcg/spray Callahan, Suspension nasal inhaler Administer 2 Sprays in each nostril. 025 Active anastrozole (ARIMIDEX) 1 mg tablet TAKE 1 TABLET(1 MG) BY MOUTH DAILY 90 Tablet 3 025 Active esomeprazole (NexIUM) 40 mg Capsule, Delayed Release(E.C.)Annabelle cations:Gastroeso phageal reflux disease without esophagitis TAKE 1 CAPSULE BY MOUTH EVERY DAY NEEDED 100 Capsule 3 025 Active montelukast (SINGULAIR) 10 mg tabletIndications :Mild intermittent asthma with acute exacerbation TAKE 1 TABLET(10 MG) BY MOUTH DAILY 90 Tablet 3 025 Active albuterol sulfate HFA 90 mcg/actuation aerosol inhalerIndication s:Mild intermittent asthma with acute exacerbation INHALE 2 PUFFS PO Q 4-6 H NEEDED FOR SHORTNESS OF BREATH OR WHEEZING 8.5 Gram 3 025 Active pantoprazole (PROTONIX) 40 mg Tablet, Delayed Release (E.C.)Indications :Gastroesophageal reflux disease without esophagitis TAKE 1 TABLET(40 MG) BY MOUTH DAILY 100 Tablet 3 025 Active PARoxetine HCl (PAXIL) 40 mg tablet TAKE 1 TABLET(40 MG) BY MOUTH DAILY 100 Tablet 3 025 Active simvastatin (ZOCOR) 40 mg tabletIndications :Mixed hyperlipidemia TAKE 1 TABLET(40 MG) BY MOUTH DAILY 100 Tablet 2 025 Active aspirin (ECOTRIN EC) 81 mg Tablet, Delayed Release (E.C.) Take 1 Tablet (81 mg) by mouth 2 times daily. 60 Tablet 11/19/19 25 9:03 AM CDT 025 Active sennosides-docusa te sodium (SENNA-S) 8.6-50 mg tablet Take 1 Tablet by mouth 2 times daily. 60 Tablet 11/19/19 25 9:03 AM CDT 025 Active HYDROcodone-aceta minophen (NORCO) 10-325 mg TabletIndications :Status post left knee replacement Take 1 Tablet by mouth every 4 hours as needed for Pain, Severe. Max Daily Amount: 6 Tablets 20 Tablet 025 Active Additional Information Patient not taking.Reported on 01/11/2025 metFORMIN (GLUCOPHAGE XR) 500 mg Extended Release 24 hour tablet TAKE 2 TABLETS(1000 MG) BY MOUTH TWICE DAILY WITH MEALS 360 Tablet 1 025 Active atenoloL (TENORMIN) 50 mg tablet TAKE 1 TABLET(50 MG) BY MOUTH DAILY 90 Tablet 025 Active docusate sodium (Colace) 100 mg capsule Take 1 Capsule (100 mg) by mouth 2 times daily. 20 Capsule 12/07/19 25 6:32 PM CDT 09/09/2 025 Active oxyCODONE-acetami nophen (PERCOCET) 5-325 mg tabletIndications :Cervical radiculopathy at C7 Take 1 Tablet by mouth every 4 hours as needed for Pain, Moderate. Max Daily Amount: 6 Tablets 9 Tablet 12/07/19 25 6:32 PM CDT Active Additional Information Patient not taking.Reported on 01/11/2025 naloxone (NARCAN) 4 mg/spray Callahan, Non-Aerosol EMERGENCY USE ONLY: Administer 1 spray (4 mg) in one nostril one time. May repeat in alternating nostrils every 2-3 min until responsive or EMS arrives. 2 Each 3 Active olmesartan (BENICAR) 40 mg tablet Take 1 Tablet (40 mg) by mouth daily. 90 Tablet 3 Active meloxicam (MOBIC) 7.5 mg tabletIndications :Cervical radiculopathy at C6 Take 1 Tablet (7.5 mg) by mouth daily. 30 Tablet 1 Active insulin lispro (HumaLOG,ADMELOG) 100 unit/mL pen syringe INJECT 7 UNITS UNDER THE SKIN WITH BREAKFAST, 15 UNITS WITH LUNCH, 15 UNITS WITH DINNER, PLUS SLIDING SCALE, MAX 100UNITS PER DAY 90 mL 1 Active dulaglutide (Trulicity) 0.75 mg/0.5 mL injection ADMINISTER 0.75 MG UNDER THE SKIN EVERY 7 DAYS 6 mL 1 Active Insulin Norfolk, Disposable, (BD Ultra-Fine Short Pen Needle) 31 gauge x 5/16 Needle USE FOUR TIMES DAILY BEFORE MEALS AND AT BEDTIME 400 Each 3 Active insulin glargine (Lantus Solostar U-100 Insulin) 100 unit/mL pen syringe 35 units SQ qhs. 45 mL 1 025 Active Insulin [place], Disposable, (BD Ultra-Fine Short Pen Needle) 31 gauge x 5/16 Needle USE FOUR TIMES DAILY BEFORE MEALS AND AT BEDTIME 400 Each 3 05/25/ 024 2024 Discontinued(R eorder) dulaglutide (Trulicity) 0.75 mg/0.5 mL injection ADMINISTER 0.75 MG UNDER THE SKIN EVERY 7 DAYS 6 mL 1 025 2024 Discontinued(R eorder) insulin lispro (HumaLOG,ADMELOG) 100 unit/mL pen syringe INJECT 7 UNITS UNDER THE SKIN WITH BREAKFAST, 15 UNITS WITH LUNCH, 15 UNITS WITH DINNER, PLUS SLIDING SCALE, MAX 100UNITS PER DAY 90 mL 1 025 2024 Discontinued(R eorder) insulin glargine (Lantus Solostar U-100 Insulin) 100 unit/mL pen syringe 40 units SQ qhs. 45 mL 1 025 2024 Discontinued Active Problems Patient Care Coordination No te Formatting of this note migh t be different from the original. 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 ([facility]) Problem Noted Date Diagnosed Date Primary osteoarthritis of left knee 11/17/2024 Malignant neoplasm of upper- inner quadrant of right breast in female, estrogen receptor positive 10/21/2022 Overview (05/28/2023): Stage: Clinical T1N0; pT2N0 Date of diagnosis: 09/24/2022 Diagnosis: RIGHT 31 mm IDC, 0/2 LN ER(+) [place](+) Her 2(-) Surgeon: [facility] Surgery: 10/31/2022 right lump/SLN Medical Oncologist: Sage [...] Encounters Date Type Department Care Team Description 01/24/2025 Telephone [facility] Oncology and Hematology - [facility] [address] [facility] [address] [address] Nelson Cazares MD labs for appt 01/17/2025 2:00 PM CDT Office Visit [facility] Orthopedic Surgery at the [facility] [address] [place] [phone] Torres Lizarraga MD Status post left knee replacement (Primary Dx) 01/11/2025 2:00 PM CDT Office Visit [facility] Endocrinology [address] [place] [address] Shanice Llamas MD Type 2 diabetes mellitus with hyperglycemia, with long-term current use of insulin (Primary Dx); Mixed hyperlipidemia; Obesity, class 2; BMI 34.0-34.9,adult; longterm (current) use of oral hypoglycemic drugs; Insulin dose changed ([facility]); Benign hypertension 12/14/2024 External Device Data STL ABSTRACTION Provider, Abstract 12/13/2024 3:30 PM CDT Office Visit [facility] Internal Medicine Phuong Mahoney [address] [facility] [address] [place] [phone] Kerwin Quiroga MD Cervical radiculopathy at C6 (Primary Dx) 12/13/2024 2:15 PM CDT Ancillary Procedure [facility] Orthopedic Surgery at the [facility] [address] [place] [address] Torres Lizarraga MD Status post left knee replacement 12/13/2024 2:00 PM CDT Office Visit [facility] Orthopedic Surgery at the [facility] [address] [place] [address] Torres Lizarraga MD Status post left knee replacement (Primary Dx) 12/13/2024 External Device Data STL ABSTRACTION Provider, Abstract 12/13/2024 External Device Data STL ABSTRACTION Provider, Abstract 12/08/2024 11:00 AM CDT Office Visit [facility] Heart and Vascular - [facility] [address] [place] [address] Nam Coto MD Essential hypertension, benign (Primary Dx); Other hyperlipidemia 12/06/2024 1:10 PM CDT - 12/06/2024 6:03 PM CDT Emergency [facility] Emergency Department [address] [place] [address] Amarjit Giraldo MD Sineff, Sanford, MD Cervical radiculopathy at C7 (Primary Dx) Discharge Disposition: Home or Self Care 12/06/2024 Travel 12/06/2024 Refill [facility] Heart and Vascular At [facility] [address] [place] [address] Nam Coto MD 11/28/2024 Refill [facility] Endocrinology [address] [place] [address] Shanice Llamas MD 11/24/2024 Refill [facility] Orthopedic Surgery at the [facility] [address] [place] [address] Torres Lizarraga MD Status post left knee replacement 11/24/2024 Telephone [facility] Orthopedic Surgery at the [facility] [address] [place] [address] Torres Lizarraga MD Start of Care 11/23/2024 Telephone [facility] Orthopedic Surgery at the [facility] [address] [place] [phone] Torres Lizarraga MD Post op call for the 11/17/24 surgery [facility] 11/17/2024 10:05 AM CDT Anesthesia Event [facility] [address] [place] [address] Samreen Preciado MD Tyer, Tanner J, BARBARA-C 11/17/2024 9:45 AM CDT - 11/17/2024 11:49 AM CDT Surgery [facility] [address] [place] [address] Torres Lizarraga MD LEFT KNEE ARTHROPLASTY TOTAL REPLACEMENT 11/17/2024 7:30 AM CDT - 11/17/2024 11:59 PM CDT Hospital Encounter [facility] Radiology [address] [place] [phone] Discharge Disposition: Home or Self Care 11/17/2024 7:18 AM CDT - 11/18/2024 9:36 AM CDT Hospital Encounter [facility] Pre[facility] [address] [place] [phone] Torres Lizarraga MD Primary osteoarthritis of left knee Discharge Disposition: Home Health Care [facility] 11/08/2024 External Device Data STL ABSTRACTION Provider, Abstract 11/01/2024 External Device Data Initial Department [address] [place] [address] ATTN: [place] [address] Emiliano Emergency, 10/31/2024 Telephone [facility] Heart and Vascular At [facility] [address] [place] [phone] Nam Coto MD Surgical Clearance from Last 3 Months Immunizations Immunization Administration Dates Next Due (ADACEL/BOOSTRIX)(10 YR UP) TDAP VACCINE, 0.5ML, IM 05/17/2010 (AREXVY)(60 YR UP) RSV, DOM MBINANT, PROTEIN SUBUNIT RSVPREF, ADJUVANT RECONSTITUTED, 0.5 ML, PF 01/28/2023 (PFIZER)(12 YR UP) COVID-19 VACCINE - EMERGENCY USE AUTHORIZATION, MRNA, [id number](PF) 30 MCG/0.3 ML IM SUSP 01/28/2021,06/26/2020,05/29/2020 (PNEUMOVAX 23)(50 YRS UP) PN EUMOCOCCAL POLYSACCHARIDE (PPV23) 0.5 ML, IM 04/12/2012,07/17/2011,12/06/2008 (PREVNAR 13)(6 WKS UP) PNEUM OCOCCAL CONJUGATE (PCV13) 0.5 ML, IM 01/21/2018 (PREVNAR 20)(6 WKS UP) PNEUM OCOCCAL CONJUGATE VACCINE 20-VALENT (PCV20), POLYSACCHARIDE [id number] CONJUGATE, ADJUVANT 0.5 ML (PF) IM 01/11/2025 (SHINGRIX)(50 YRS UP) ZOSTER VACCINE RECOMBINANT, 0.5 ML, IM 06/24/2018,06/24/2018,03/09/2018 INFLUENZA VACCINE HIGH DOSE QUADRIVALENT 65 YR UP PF IM 01/14/2023,01/11/2022,12/07/2019 INFLUENZA VACCINE HIGH DOSE TRIVALENT SPLIT VIRUS, (65 YR UP), 0.5ML (PF), IM 01/11/2025 INFLUENZA VACCINE QUADRIVALE NT 6 MOS UP [...] Relation Name Status Comments Father drew lang Mother yuli lang Paternal Grandfather grandfather Social [...] who hurts you emotionally and/or physically? 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 Gender Identity Not on file Sexual Orientation Not on file Occupation Industry Job Start Date Job End Date Not on file Not on file Not on file Not on file Last Filed Vital Signs Vital Sign Reading Time Taken Comments Blood Pressure 149/71 01/11/2025 1:45 PM CDT Pulse 72 01/11/2025 1:45 PM CDT Temperature 36.3 C (97.3 F) 12/13/2024 3:13 PM CDT Respiratory Rate 16 12/13/2024 3:13 PM CDT Oxygen Saturation 96% 12/13/2024 3:13 PM CDT Inhaled Oxygen Concentration - - Weight 88.9 kg (196 lb) 01/17/2025 1:51 PM CDT Height 162.6 cm (5' 4) 01/17/2025 1:51 PM CDT Body Mass Index 33.64 01/17/2025 1:51 PM CDT Plan of Treatment Upcoming Encounters Date Type Department Care Team (Late st Contact Info) Description 04/18/2025 2:45 PM STEEL DETAILER Office Visit [facility] Orthopedic Surgery at the [facility] [address] [place] [address] [place] [address] [place] [address] 05/04/2025 2:45 PM STEEL DETAILER Office Visit [facility] Oncology and Hematology - [place] [address] [place] [address] Nelson Cazares MD [address] [facility] [facility] [address] [place] [address] 06/13/2025 10:00 AM CDT [facility] [address] [place] [address] [place] [address] [facility] [address] [place] [address] 06/13/2025 11:05 AM CDT Office Visit [facility] Breast Surgery [place] [address] [place] [address] [place] [address] [place] [address] 07/13/2025 10:00 AM CDT Office Visit [facility] Endocrinology [address] [place] [address] Shanice Llamas MD [address] [place] [address] 12/14/2025 11:00 AM CDT Office Visit [facility] Heart and Vascular - [facility] [address] [place] [address] Nam Coto MD [address] [place] [address] Health Maintenance Due Date Last Done Comments FIT-DNA Q 3 years 1998 FIT/FOBT Q 1 year 1998 Flex Sig/CT Colonography Q 5 years 1998 DTAP/TDAP/TD VACCINES (2 - T d or Tdap) 05/17/2020 05/17/2010 DIABETES ANNUAL RETINAL EXAM 05/09/202312/2022, 01/02/2017, 01/02/2017, Additional history exists COVID-19 Vaccine (2024-2 6 season) 2024 01/28/2021, 06/26/2020, 05/29/2020 DIABETES HBA1C Q 6 MONTHS 04/20/20252024, 06/20/2024, 12/16/2023, Additional history exists BREAST CANCER SCREENING 06/07/2025 06/08/19 25, 05/28/2023, 09/04/2022, Additional history exists DIABETES MICROALBUMIN ANNUAL SCREEN 06/20/2025 06/20/2024, 05/30/2022, 09/13/2021, Additional history exists LDL CHOLESTEROL ANNUAL 06/20/2025 , 06/18/2023, 05/30/2022, Additional history exists Traditional Medicare (ACO) A nnual Wellness Visit 06/21/2025 06/20/2024, 06/18/2023, 05/28/2022, Additional history exists DIABETES: A1C (Auto Order) 10/18/202510/18, 06/20/2024, 12/16/2023, Additional history exists DIABETES ANNUAL FOOT EXAM 01/11/20262024, 06/20/2024, 12/16/2023, Additional history exists COLORECTAL SCREENING 12/12/2026 12/12/2021, 12/12/2021, 08/26/2018, Additional history exists Colorectal Cancer Screening 12/12/2026 OSTEOPOROSIS SCREENING 08/30/2028 08/31/2023 ZOSTER VACCINE Completed 06/24/2018, 05/29, 03/09/2018 RSV VACCINE (60+ or ) Completed 01/28/2023 INFLUENZA VACCINE Completed 01/11/2025, , 01/11/2022, Additional history exists PNEUMOCOCCAL VACCINE 50+ YEARS Completed 1 , 01/21/2018, 04/12/2012, Additional history exists Medical Devices Implanted Type Area Crisis Intervention Specialist Device Identifier Shelf Expiration Date Model / Serial / Lot Cement Concord G-Hv 40g [id number] - [id number] Implanted:Qty: 1 on 03/01/2013 by Jeb Lamb MD at [facility] Cement Right: Knee [employer] 11/28/2015 [id number] / / [id number] Cement Bone Biomet R 1x40 [id number] - [id number] Implanted:Qty: 1 on 11/17/2024 by Torres Lizarraga MD at [facility] Cement Left: Knee FILI BIOMET [id number] 03/29/2027 [id number] / / [id number] Hack Saw Operator Clip Surgiclip Ii Srini 9.75in [id number] - [id number] Implanted:Qty: 1 on 10/31/2022 by Naa Sheffield MD at [facility] [place] [facility] Clip Right: Axilla [employer] - COVIDIEN 04/29/2027 [id number] / / [id number] Patella 3peg Series A [id number] - [id number] Implanted:Qty: 1 on 03/01/2013 by Jeb Lamb MD at [facility] Knee Right: Knee [employer] 12/27/2017 [id number] / / [id number] Comp Fem Vngrd Cr Intrlk Rt 62.5mm [id number] - [id number] Implanted:Qty: 1 on 03/01/2013 by Jeb Lamb MD at [facility] Knee Right: Knee [employer] 07/27/2022 [id number] / / [id number] Comp Tib Cocr Finned 67mm [id number] - [id number] Implanted:Qty: 1 on 03/01/2013 by Jeb Lamb MD at [facility] Knee Right: Knee [employer] 01/27/2023 [id number] / / [id number] Brng Tib Vngrd Epoly Cr [id number]-[id number] - [id number] Implanted:Qty: 1 on 03/01/2013 by Jeb Lamb MD at [facility] Knee [employer] 08/27/2017 [id number] / / [id number] Description:EPOLY BEARING IS NOT PART OF TOTAL KNEE CAP PRICING,WILL CHARGED SEPARATELY. Comp Fem Vanguard Cr Interlock Lt 62.5mm [id number] - [id number] Implanted:Qty: 1 on 11/17/2024 by Torres Lizarraga MD at [facility] Knee Left: Knee FILI BIOMET [id number] 05/23/2034 [id number] / / [id number] Comp Tib Cocr Finned 67mm [id number] - [id number] Implanted:Qty: 1 on 11/17/2024 by Torres Lizarraga MD at [facility] Knee Left: Knee FILI BIOMET [id number] 06/01/2034 [id number] / / [id number] Patella Sngl Peg Series A [id number] - [id number] Implanted:Qty: 1 on 11/17/2024 by Torres Lizarraga MD at [facility] Knee Left: Knee FILI BIOMET 11/14/2027 [id number] / / [id number] Bearing Tib Vanguard Cr 10x63/67 [id number] - [id number] Implanted:Qty: 1 on 11/17/2024 by Torres Lizarraga MD at [facility] Knee Left: Knee FILI BIOMET [id number] 09/08/2028 [id number] / / [id number] Description:REQ [id number] Procedures Procedure Name Priority Date/Time Associated Diagnosis Comments XR KNEE 3 VW LEFT Routine 12/13/2024 2:1 4 PM CDT Status post left knee replacement CT CERVICAL SPINE WO CONTRAST Stat 12/06/2024 4:31 PM CDT POC CREATININE Stat 12/06/2024 2:08 PM CDT TROPONIN Stat 12/06/2024 1:53 PM CDT COMPREHENSIVE METABOLIC PANEL Stat 12/06/2024 1:53 PM CDT CBC WITH DIFFERENTIAL Stat 12/06/2024 1:53 PM CDT EKG 12-LEAD Stat 12/06/2024 1:14 PM CDT POC GLUCOSE Routine 11/18/2024 6:34 AM CDT POC GLUCOSE Routine 11/17/2024 7:01 PM CDT IR INJECTION Routine 11/17/2024 1:22 PM CDT XR KNEE 1 OR 2 VW LEFT Routine 11/17/2024 12:40 PM CDT OT EVAL AND TREAT Routine 11/17/2024 12: 38 PM CDT OT EVAL AND TREAT Routine 11/17/2024 12: 38 PM CDT POC GLUCOSE Routine 11/17/2024 11:44 AM CDT WA ARTHRP KNE CONDYLE&PLATU MEDIAL&LAT COMPARTMENTS 11/17/2024 9:45 AM CDT Primary osteoarthritis of left knee WA ANESTHESIA BLOCK PB PLACEHOLDER CHARGE Routine 11/17/2024 9:21 AM CDT POC GLUCOSE Routine 11/17/2024 7:54 AM CDT HEMOGLOBIN A1C Routine 10/18/2024 10:06 AM CDT MICROALBUMIN/CREATINI NE RATIO, RANDOM UR Routine 06/20/2024 9:15 AM CDT LIPID PANEL Routine 06/20/2024 9:15 AM CDT Mixed hyperlipidemia MAMMO 3D PING DIAGNOSTIC BILAT W OR WO CAD Routine 06/07/2024 12:12 PM CDT Malignant neoplasm of upper-inner quadrant of right breast in female, estrogen receptor positive (CMS/HCC) COLONOSCOPY REPORT 12/12/2021 10 :33 AM CDT HM DIABETES EYE EXAM Routine 01/02/2017 from Last 3 Months or Most Recently Relevant to Health Maintenance Results * XR KNEE 3 VW LEFT (12/13/2024 2:14 PM CDT) Anatomical Region Laterality Modality Lower Extremity Computed Radiogr aphy Impressions 12/13/2024 4:25 PM CDT : Satisfactory postoperative appearance of left total knee replacement. Torres Lizarraga MD, FAAOS Narrative 12/13/2024 4:25 PM CDT STUDY: 3 views of the left knee. DATE: 12/13/2024 INDICATIONS: To evaluate a left total knee replacement. INTERPRETATION: There is a left total knee replacement that is in excellent position and alignment. There are no radiolucent zones. No evidence for osteolysis. The patella is tracking nicely. There are no fractures. us Torres iLzarraga MD DIAGNOSTIC IMAGING ORDERABLES Final Result * CT CERVICAL SPINE WO CONTRAST (12/06/2024 4:31 PM CDT) Anatomical Region Laterality Modality Spine Computed Tomogra phy 12/06/2024 4:32 PM CDT Impressions 12/06/2024 4:44 PM CDT IMPRESSION: 1. Spondylosis and stenosis without fracture DICTATION LOCATION: Location 4 Narrative 12/06/2024 4:[address] CERVICAL SPINE WITHOUT CONTRAST WITH REFORMATTED IMAGES DATE: 12/06/2024 4:31 PM HISTORY: Bone mass or bone pain, cervical spine, aggressive features on xray. See Reason for Exam COMPARISON: None. TECHNIQUE: Multislice helical axial imaging with multiplanar reformats. The examination was performed with the adjustment of mA according to the patient size and/or the use of Iterative Reconstruction Technique. CERVICAL SPINE FINDINGS: ALIGNMENT: Preservation of alignment. ATLANTOAXIAL/ATLANTOOCCIPITAL: No traumatic malalignment. TRAUMATIC: No fracture. PULMONARY APICES: Limited evaluation. Grossly unremarkable SOFT TISSUES: Calcification in the right thyroid. ADDITIONAL: Atherosclerotic calcifications DEGENERATIVE: Multilevel spondylosis. Moderate to severe spinal stenosis at C5-6 due to a posterior disc osteophyte complex with severe bilateral foraminal stenosis. There is also severe foraminal stenosis greater on the left at C6-7. At T1-2 there is a bridging posterior osteophyte in the right paracentral zone Procedure Note Jose Luis Herbert MD - 12/06/2024 CT CERVICAL SPINE WITHOUT CONTRAST WITH REFORMATTED IMAGES DATE: 12/06/2024 4:31 PM HISTORY: Bone mass or bone pain, cervical spine, aggressive features on xray. See Reason for Exam COMPARISON: None. TECHNIQUE: Multislice helical axial imaging with multiplanar reformats. The examination was performed with the adjustment of mA according to the patient size and/or the use of Iterative Reconstruction Technique. CERVICAL SPINE FINDINGS: ALIGNMENT: Preservation of alignment. ATLANTOAXIAL/ATLANTOOCCIPITAL: No traumatic malalignment. TRAUMATIC: No fracture. PULMONARY APICES: Limited evaluation. Grossly unremarkable SOFT TISSUES: Calcification in the right thyroid. ADDITIONAL: Atherosclerotic calcifications DEGENERATIVE: Multilevel spondylosis. Moderate to severe spinal stenosis at C5-6 due to a posterior disc osteophyte complex with severe bilateral foraminal stenosis. There is also severe foraminal stenosis greater on the left at C6-7. At T1-2 there is a bridging posterior osteophyte in the right paracentral zone IMPRESSION: 1. Spondylosis and stenosis without fracture DICTATION LOCATION: Location [address] ORDERABLES Final Result * POC CREATININE (12/06/2024 2:08 PM CDT) Pathologist [facility] CREATININE POC 1.00 0.50 - 1.00 mg/dL 12/06/2024 2:08 PM CDT [facility] Comment:The GFR result is no t clinically significant on patients <18 or >70 years of age. GFR POC 60 mL/min/1.7 3 sq meter 12/06/2024 2:08 PM CDT [facility] Comment:eGFR calculated with 2020 CKD-EPI equation. Vegetarian diet, extremely high or low muscle mass, and may affect results. Cystatin C with Glomerular Filtration Rate is a suitable alternative for these patients. Blood, whole 12/06/2024 2:08 PM CDT 12/06/2024 2:11 PM CDT Amarjit Giraldo MD POINT OF CARE TESTING Final Result [facility]# [id number] [address] [facility] [place] [id number] * (ABNORMAL) CBC WITH DIFFERENTIAL (12/06/2024 1:53 PM CDT) Pathologist [facility] WBC 8.9 4.0 - 9.8 K/uL 12/06/2024 2:28 PM CDT [facility] [facility] RBC 4.23 3.90 - 4.90 M/uL 12/06/2024 2:28 PM CDT [facility] HEMOGLOBIN 11.4(L) 11.8 - 14.8 g/dL 12/06/2024 2:28 PM CDT [facility] HEMATOCRIT 35.9 35.5 - 44.0 % 12/06/2024 2:28 PM CDT [facility] MCV 84.9 82.0 - 99.0 fL 12/06/2024 2:28 PM CDT [facility] MCH 27.0(L) 27.2 - 32.6 pg 12/06/2024 2:28 PM CDT [facility] MCHC 31.8 31.5 - 35.5 g/dL 12/06/2024 2:28 PM CDT [facility] RDW 15.1(H) 11.5 - 14.5 % 12/06/2024 2:28 PM CDT [facility] RDW-STDEV 46.3 37.1 - 48.7 fL 12/06/2024 2:28 PM CDT [facility] PLATELETS 291 140 - 350 K/uL 12/06/2024 2:28 PM CDT [facility] MPV 10.6 9.3 - 12.4 fL 12/06/2024 2:28 PM CDT [facility] NEUTROPHILS 65 % 12/06/2024 2:28 PM CDT [facility] - [facility] LYMPHOCYTES 19 % 12/06/2024 2:28 PM CDT [facility] - . [facility] MONOCYTES 7 % 12/06/2024 2:28 PM CDT [facility] - . [facility] EOSINOPHILS 7 % 12/06/2024 2:28 PM CDT [facility] . [facility] BASOPHILS 1 % 12/06/2024 2:28 PM CDT [facility] - . [facility] IMMATURE GRANULOCYTES 0 % 12/06/2024 2:28 PM CDT [facility] NEUTROPHIL ABSOLUTE 5.80 1.90 - 7.00 K/uL 12/06/2024 2:28 PM CDT [facility] LYMPHOCYTE ABSOLUTE 1.72 0.70 - 4.50 K/uL 12/06/2024 2:28 PM CDT [facility] MONOCYTE ABSOLUTE 0.64 0.10 - 1.30 K/uL 12/06/2024 2:28 PM CDT [facility] EOSINOPHIL ABSOLUTE 0.63 0.00 - 0.70 K/uL 12/06/2024 2:28 PM CDT [facility] - [facility] BASOPHILS ABSOLUTE 0.08 0.00 - 0.20 K/uL 12/06/2024 2:28 PM CDT [facility] - [facility] IMMATURE GRANULOCYTES ABSOLUTE 0.04(H) 0.00 - 0.03 K/uL 12/06/2024 2:28 PM CDT [facility] - [facility] Blood Venipuncture / Unknown 12/06/2024 1:53 PM CDT 12/06/2024 2:15 PM CDT Amarjit Giraldo MD HEMATOLOGY ORDERABLES Final Result [facility] CLIA# [id number] [address] [id number] * (ABNORMAL) TROPONIN (12/06/2024 1:53 PM CDT) Pathologist [facility] TROPONIN T, 5TH GEN 11(H) <=10 ng/L 12/06/2024 4:21 PM CDT [facility] - [facility] Blood Venipuncture / Unknown 12/06/2024 1:53 PM CDT 12/06/2024 2:15 PM CDT Narrative [facility] - 12/06/2024 4:21 PM CDT Troponin elevated. Raymond Michaels MD CHEMISTRY ORDERABLES Final Res ult [facility] CLIA# [id number] [address] [place] [address] * (ABNORMAL) COMPREHENSIVE METABOLIC PANEL (12/06/2024 1:53 PM CDT) Pathologist [facility] SODIUM 142 136 - 145 mmol/L 12/06/2024 2:58 PM CDT [facility] POTASSIUM 4.2 3.5 - 5.0 mmol/L 12/06/2024 2:58 PM CDT [employer] [facility] [facility] - [facility] CHLORIDE 103 98 - 107 mmol/L 12/06/2024 2:58 PM [facility] CO2 25 22 - 29 mmol/L 12/06/2024 2:58 PM [facility] [employer] [facility] - [facility] CALCIUM 9.2 8.6 - 10.2 mg/dL 12/06/2024 2:58 PM [facility] [employer] [facility] - [facility] BUN 12 8 - 23 mg/dL 12/06/2024 2:58 PM [facility] [employer] [facility] - [facility] CREATININE 0.86 0.51 - 0.95 mg/dL 12/06/2024 2:58 PM [facility] [employer] [facility] Comment:The GFR result is no t clinically significant on patients <18 or >70 years of age. GLUCOSE 99 74 - 99 mg/dL 12/06/2024 2:58 PM [facility] [employer] [facility] - [facility] TOTAL PROTEIN 6.5(L) 6.7 - 8.6 g/dL 12/06/2024 2:58 PM [facility] ALBUMIN 3.8 3.5 - 5.2 g/dL 12/06/2024 2:58 PM [facility] [employer] [facility] BILIRUBIN TOTAL 0.6 0.0 - 1.1 mg/dL 12/06/2024 2:58 PM [facility] [employer] [facility] ALKALINE PHOSPHATASE 84 35 - 104 U/L 12/06/2024 2:58 PM [facility] AST 20 <33 U/L 12/06/2024 2:58 PM [facility] ALT 9 <34 U/L 12/06/2024 2:58 PM [facility] GFR >60 mL/min/1.7 3 sq meter 12/06/2024 2:58 PM [facility] Comment:eGFR calculated with 2020 CKD-EPI equation. Vegetarian diet, extremely high or low muscle mass, and may affect results. Cystatin C with Glomerular Filtration Rate is a suitable alternative for these patients. ANION GAP 14 8 - 16 mmol/L 12/06/2024 2:58 PM CDT [facility] Blood Venipuncture / Unknown 12/06/2024 1:53 PM CDT 12/06/2024 2:15 PM CDT Narrative [facility] - 12/06/2024 2:58 PM CDT Samples containing indocyanine green cause interferences on Total and/or Direct Bilirubin and must not be measured. 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: [facility] : 1955 Requested By: Order Number: [id number] Sky CURRY: Liu Quarles Measurements Intervals Wideman Rate: 70 P: 23 WA: 175 QRS: -7 QRSD: 88 T: 31 QT: 386 QTc: 417 Interpretive Statements Sinus rhythm Nonspecific T abnrm, anterolateral leads Electronically Signed On 12-06-2024 13:50:19 CDT by Liu Quarles Procedure Note Liu Quarles MD - 12/06/2024 [place] [address] Test Date: 2024-12-06 Pat Name: WILLIAM IZAGUIRRE Department: 38 Room: Gender: Female 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: [facility] : 1955 Requested By: Order Number: [id number] Sky CURRY: Liu Quarles Measurements Intervals Wideman Rate: 70 P: 23 WA: 175 QRS: -7 QRSD: 88 T: 31 QT: 386 QTc: 417 Interpretive Statements Sinus rhythm Nonspecific T abnrm, anterolateral leads Electronically Signed On 12-06-2024 13:50:19 CDT by Liu Quarles Amarjit Giraldo MD ECG ORDERABLES Final Result Performing Organization Address City/[facility]/ZIP Co de Phone Number INTERFACE SYSTEM Refer to clinic/hospital department * (ABNORMAL) POC GLUCOSE (11/18/2024 6:34 AM CDT) Only the most recent of4 resultswithin the time period is included. [facility] GLUCOSE POC 179(H) 74 - 99 mg/dL 11/18/2024 6:34 AM CDT [facility] SPECIMEN SOURCE, GLUCOSE POC Whole Blood 11/18/2024 6:34 AM CDT [facility] Blood, whole 11/18/2024 6:34 AM CDT 11/18/2024 6:36 AM CDT Torres Lizarraga MD POINT OF CARE TESTING Final R esult Performing Organization Address City/[facility] Co de Phone Number [facility] CLIA# [id number] [address] [place] [address] * IR INJECTION (11/17/2024 1:22 PM CDT) Narrative 11/17/2024 1:23 PM CDT Order information only. Exam was auto-finalized. Torres Lizarraga MD IR ORDERABLES Final Result * XR KNEE 1 OR 2 VW LEFT (11/17/2024 12:40 PM CDT) Anatomical Region Laterality Modality Lower Extremity Computed Radiogr aphy 11/17/2024 12:4 0 PM CDT Impressions 11/17/2024 1:24 PM CDT IMPRESSION: Postoperative changes of total knee arthroplasty DICTATION LOCATION: Location 4 Narrative 11/17/2024 1:24 PM CDT EXAMINATION: XR KNEE 1 OR 2 VW LEFT DATE: 11/17/2024 12:40 PM HISTORY: Total Knee Replacement. Preop testing COMPARISON: 07/28/2024 FINDINGS: Total knee arthroplasty appears intact without surrounding lucency or fracture. There are postoperative changes in the soft tissues. Procedure Note Jose Luis Herbert MD - 11/17/2024 EXAMINATION: XR KNEE 1 OR 2 VW LEFT DATE: 11/17/2024 12:40 PM HISTORY: Total Knee Replacement. Preop testing COMPARISON: 07/28/2024 FINDINGS: Total knee arthroplasty appears intact without surrounding lucency or fracture. There are postoperative changes in the soft tissues. IMPRESSION: Postoperative changes of total knee arthroplasty DICTATION LOCATION: Location 4 us Torres Lizarraga MD DIAGNOSTIC IMAGING ORDERABLES Final Result * [place] ANESTHESIA BLOCK PB PLACEHOLDER CHARGE (11/17/2024 9:21 AM CDT) Narrative Samreen Preciado MD - 11/17/2024 9:21 AM CDT Samreen Preciado MD 11/17/2024 9:21 AM Patient location during procedure: Pre-op Reason for block: at surgeon's request and post-op pain management Staffing Performed: Anesthesiologist (/) Authorized by: Samreen Preciado MD Performed by: Samreen Preciado MD Preanesthetic Checklist Completed: patient identified, IV checked, site marked, risks and benefits discussed, surgical consent, monitors and equipment checked, pre-op evaluation and timeout performed Hand hygiene performed prior to procedure Patient was prepped and draped in usual sterile fashion Mask worn Patient position: Supine Prep: ChloraPrep Patient monitoring: Continuous pulse oximetry and Heart rate Block Region: Lower Extremity Block Block Type: Adductor Canal Block Laterality: Left Injection technique: Single-shot [place] Identification: ultrasound guided Local injected: Bupivacaine with epinephrine and Bupivacaine 0.25% Total Volume Injected (mL): 30 Needle Needle type: Short-bevel Needle gauge: 22 G Needle localization: Ultrasound guidance Nerve Stimulator or Paresthesia Response Motor response or paresthesia obtained mA ms Depth (cm) Sedation Given: Midazolam (mg): 2 Patient Response: Awake and Responsive to verbal stimuli Assessment Paresthesia pain: None Heart rate change: no Slow fractionated injection: yes Narrative Injections made incrementally with aspirations every (mL): 5 Events: easy and well tolerated, Image stored electronically in record and no block events Outcome: Complete Additional Notes I have discussed with the patient, and/or surrogate, the placement of an adductor canal nerve block for postoperative pain management. We have discussed the risks, benefits, complications and side effects. We have also discussed alternative methods of postoperative analgesia. The patient, and/or surrogate, understands and wishes to proceed with the procedure. Heart rate and Sp02 monitored during and immediately following procedure and stable throughout. us Samreen Preciado MD PROCEDURE/MINOR SURGICAL OR DERABLES Final Result * (ABNORMAL) HEMOGLOBIN A1C (10/18/2024 10:06 AM CDT) HEMOGLOBIN A1C 7.4(H) <5.7 % 10/18/2024 11:29 AM CDT [facility] EST. AVG GLUCOSE, A1C 166 mg/dL 10/18/2024 11:29 AM CDT [facility] Blood Venipuncture / Unknown 10/18/2024 10:06 AM CDT 10/18/2024 11:04 AM CDT Narrative [facility] - 10/18/2024 11:29 AM CDT [facility] A1C INTERPRETATION NORMAL: <5.7% PRE-DIABETES: 5.7 - 6.4% DIABETES: 6.5% OR GREATER Torres Lizarraga MD CHEMISTRY ORDERABLES Final Re sult [facility]# [id number] [address] [facility] [address] [address] * MICROALBUMIN/CREATININE RATIO, RANDOM UR (06/20/2024 9:15 [...] within a diagnostic category. Test Performed at: [facility] [address] [place] [address] Jj Alaniz MD 06/20/2024 9:15 AM CDT 06/20/2024 9:17 AM CDT us Kerwin Quiroga MD URINE ORDERABLES Final Res ult [facility] [phone] [facility] [address] [place] [address] * (ABNORMAL) LIPID PANEL (06/20/2024 9:15 AM CDT) CHOLESTEROL 151 <200 mg/dL [facility] HDL 46(L) > OR = 50 mg/dL [facility] TRIGLYCERIDE 104 <150 mg/dL [facility] LDL CALCULATED 85 mg/dL (calc) [facility] Comment: Reference range: <100 Desirable range <100 mg/dL for primary prevention; <70 mg/dL for patients with CHD or diabetic patients with > or = 2 CHD risk factors. LDL-C is now calculated using the Ruiz-Daniel calculation, which is a validated novel method providing better accuracy than the Friedewald equation in the estimation of LDL-C. Ruiz PATRICK et al. CESAR. 2013;310(19): 2309-4104 (http://education.Taltopia.BASH Gaming/faq/YOC570) CHOL/HDL RATIO 3.3 <5.0 (calc) [facility] NON-HDL CHOLESTEROL 105 <130 mg/dL (calc) [facility] Comment: For patients with diabetes plus 1 major ASCVD risk factor, treating to a non-HDL-C goal of <100 mg/dL (LDL-C of <70 mg/dL) is considered a therapeutic option. Test Performed at: [place] [address] [address] [phone] Jj Alaniz Blood 06/20/2024 9:15 AM CDT 06/20/2024 9:17 AM CDT Kerwin Quiroga MD CHEMISTRY ORDERABLES Final Result [facility] [phone] [facility] [address] [address] [place] [phone] * MAMMO 3D PING DIAGNOSTIC BILAT W [...] time of the examination. DICTATION LOCATION: Brenna Couch Impressions 06/07/2024 12:22 PM CDT IMPRESSION: 1. [...] the time of the examination. DICTATION LOCATION: [facility] Naa Sheffield MD MAMMO ORDERABLES Edited Result - Final * COLONOSCOPY REPORT (12/12/2021 10:33 AM CDT) Narrative Procedure Note Sourav Villeda MD - 12/12/2021 10:32 AM CDT [facility] Endoscopy Patient Name: William Izaguirre Procedure Date: 12/12/2021 Date of : [...] electronically. Number of Addenda: [address]; [place] [address] us Sourav Villeda MD GI PROCEDURE ORDERABLES Final R esult * HM DIABETES EYE EXAM (01/02/2017) us Abstract Linc Provider HEALTH MAINTENANCE Edited Result - Final [facility] from Last 3 Months or Most Recently Relevant to Health Maintenance Insurance MEDICARE PART A AND B [facility] [address]3 MEDICARE AARP RX OPTUM RX Member Subscriber Plan / Payer (Ef fective 2022-) Name:William Izaguirre Relation to Subscriber:Self Name:William Izaguirre Payer ID:Not on file Group ID:[id number] Type:RX Commercial Address: [address] OPT[employer] RX Member Subscriber Plan / Payer (Ef fective 2024-) Name:William Izaguirre Relation to Subscriber:Self Name:William Izaguirre Payer ID:Not on file Group ID:[id number] Type:RX Medicare Part D Address: [address] [employer] DATA Medicare Part B MEDICARE PART A AND B [facility] [id number] Advance Directives For more information, please contact: [phone] * Full Code (Latest Code Status on File) Date Activated Date Inactivated Comments 11/17/2024 12:38 PM 11/18/2024 12:07 PM * Full Code Date Activated Date Inactivated Comments 11/17/2024 7:30 AM 11/17/2024 12:38 PM * Full Code Date Activated Date Inactivated Comments 12/12/2021 9:05 AM 12/12/2021 1:34 PM * Full Code Date Activated Date Inactivated Comments 10/21/2019 8:46 AM 10/21/2019 12:36 PM * Full Code Date Activated Date Inactivated Comments 08/26/2018 10:57 AM 08/26/2018 2:18 PM Care Teams Telecommunications Consultant Relationship Specialty [place] [address] [address] PCP - General 01/02/25
--- OUTSIDE RECORDS SUMMARY | 2025-01-26 12:33 | XMS_ITS | Encounter Summary ---
Author Organization [facility] Address [address] [place] [address] Care Team Providers Care Manager Product Support Name Role Phone Amarjit Mares Primary Care Provide r Encounter Details Date Type Department Care Team (Late st Contact Info) Description 03/24/2003 Emergency [facility] Thomas Gray MD [address] [place] [address] Er, Authorized P NO ADDRESS ON FILE CONTUSION OF FOOT (Primary Dx) Social History Tobacco Use Types Packs/Day Years Used Date Smoking Tobacco: Never Assessed Comments Unknown Sex and Gender Information Value Date Recorded Sex Assigned at Not on file Legal Sex Female 4:29 AM TIRE BAGGER Gender Identity Not on file Sexual Orientation Not on file documented as of this encounter Plan of Treatment Upcoming Encounters Date Type Department Care Team (Late Contact Info) Description 04/18/2025 2:45 PM TIRE BAGGER Office Visit [facility] Orthopedic Surgery at the [facility] [address] [place] [address] [place] [address] [place] [address] 05/04/2025 2:45 PM TIRE BAGGER Office Visit [facility] Oncology and Hematology - [address] [place] [address] Nelson Cazares MD [address] [facility] [address] [place] [phone] 06/13/2025 10:00 AM CDT Appointment [facility] [place] [address] [address] [place] [phone] [place] [address] [place] [address] 06/13/2025 11:05 AM CDT Office Visit [facility] Breast Surgery [address] [place] [address] [place] [address] [place] [address] 07/13/2025 10:00 AM CDT Office Visit [facility] Endocrinology [address] [place] [address] Shanice Llamas MD [address] [place] [address] 12/14/2025 11:00 AM CDT Office Visit [facility] Heart and Vascular - [facility] [address] [place] [address] Nam Coto MD [address] [facility] [address] [place] [address] documented as of this encounter Visit Diagnoses Diagnosis Contusion of foot- Primary documented in this encounter Additional Health Concerns Infection Onset Date Last Indicated Resolved Time R/O COVID-19 12/28/2019 12/28/2019 12/30/2019 5:45 AM CDT COVID-19 12/28/2019 12/28/2019 01/27/2020 1:16 AM CDT documented as of this encounter Care Teams Manager Product Support Relationship Specialty [place] [address] [facility] [address] [place] [phone] PCP - General 01/02/25 documented as of this encounter
--- OUTSIDE RECORDS SUMMARY | 2025-01-26 12:33 | XMS_ITS ---
Author Organization [facility] Address [address] [place] [address] Phone Care Team Providers Care General Manager Name Role Phone Vishnu Amarjit Brunson Primary Care Provide r Active Problems Patient Care Coordination No te Formatting of this note migh t be different from the original. Finisher Brush - Dr. Jeb Ruiz ([facility] Problem Noted Date Diagnosed Date Primary osteoarthritis of left knee 11/17/2024 Malignant neoplasm of upper- inner quadrant of right breast in female, estrogen receptor positive 10/21/2022 Overview (05/28/2023): Stage: Clinical T1N0; pT2N0 Date of diagnosis: 09/24/2022 Diagnosis: RIGHT 31 mm IDC, 0/2 LN ER(+) [place](+) Her 2(-) Surgeon: Nettie Surgery: 10/31/2022 right [...] Automatic Entry Manual Entr y Effective Dose 63.93 mSv 63.93 mSv 0 mSv Total DLP 5,128.44 DLP 5,128.44 DLP 0 DLP CTDIvol Max 107.34 mGy 107.34 mGy 0 mGy CTDIvol Min 74.87 mGy [...]
--- OUTSIDE RECORDS SUMMARY | 2025-01-26 12:33 | XMS_ITS | Encounter Summary ---
Author Organization [facility] Address [address] [place] [address] Care Team Providers Care Wireless Operator Name Role Phone Amarjit Mares Primary Care Provide r Encounter Details Date Type Department Care Team (Late Contact Info) Description 02/15/2004 Outpatient Historical [facility] Jeremías Farias MD NO ADDRESS ON FILE Social History Tobacco Use Types Packs/Day Years Used Date Smoking Tobacco: Never Assessed Comments Unknown Sex and Gender Information Value Date Recorded Sex Assigned at Not on file Legal Sex Female 4:29 AM POTATO BUCKER Gender Identity Not on file Sexual Orientation Not on file documented as of this encounter Plan of Treatment Upcoming Encounters Date Type Department Care Team (Late Contact Info) Description 04/18/2025 2:45 PM POTATO BUCKER Office Visit [facility] Orthopedic Surgery at the [facility] [address] [facility] [address] [place] [address] [place] [address] [place] [address] 05/04/2025 2:45 PM POTATO BUCKER Office Visit [facility] Oncology and Hematology - [address] [place] [address] Nelson Cazares MD [address] [facility] [address] [place] [address] 06/13/2025 10:00 AM CDT Appointment [facility] [address] [address] [facility] [place] [phone] [place] [address] [place] [phone] 06/13/2025 11:05 AM CDT Office Visit [facility] Breast Surgery [place] [address] [place] [phone] [place] [address] [place] [address] 07/13/2025 10:00 AM CDT Office Visit [facility] Endocrinology [address] [place] [address] Shanice Llamas MD [address] [place] [address] 12/14/2025 11:00 AM CDT Office Visit [facility] Heart and Vascular - [facility] [address] [place] [address] Nam Coto MD [address] [facility] [address] [place] [address] documented as of this encounter Visit Diagnoses Not on filedocumented in this encounter Additional Health Concerns Infection Onset Date Last Indicated Resolved Time R/O COVID-19 12/28/2019 12/28/2019 12/30/2019 5:45 AM CDT COVID-19 12/28/2019 12/28/2019 01/27/2020 1:16 AM CDT documented as of this encounter Care Teams Wireless Operator Relationship Specialty Start [place] [address] [place] [address] PCP - General 01/02/25 documented as of this encounter
--- OUTSIDE RECORDS SUMMARY | 2025-01-26 12:34 | XMS_ITS | Encounter Summary ---
Author Organization [facility] Address [address] [place] [address] Care Team Providers Care Quality Assurance Clerk Name Role Phone Amarjit Mares Primary Care Provide r Encounter Details Date Type Department Care Team (Late Contact Info) Description 05/23/2002 Outpatient Historical HIS [facility] Jeremías Farias MD NO ADDRESS ON FILE Social History Tobacco Use Types Packs/Day Years Used Date Smoking Tobacco: Never Assessed Comments Unknown Sex and Gender Information Value Date Recorded Sex Assigned at Not on file Legal Sex Female 4:29 AM DIRECTOR OF BUSINESS DEVELOPMENT Gender Identity Not on file Sexual Orientation Not on file documented as of this encounter Plan of Treatment Upcoming Encounters Date Type Department Care Team (Late Contact Info) Description 04/18/2025 2:45 PM DIRECTOR OF BUSINESS DEVELOPMENT Office Visit [facility] Orthopedic Surgery at the [facility] [address] [place] [address] [place] [address] [place] [address] 05/04/2025 2:45 PM DIRECTOR OF BUSINESS DEVELOPMENT Office Visit [facility] Oncology and Hematology - Paras [address] [place] [address] Nelson Cazares MD [address] [facility] [address] [place] [address] 06/13/2025 10:00 AM CDT Appointment [facility] Jazmin Couch [address] [facility] [place] [place] [phone] [place] [address] [place] [phone] 06/13/2025 11:05 AM CDT Office Visit [facility] Breast Surgery Jazmin Couch [address] [place] [phone] [place] [address] [place] [address] 07/13/2025 10:00 AM CDT Office Visit [facility] Endocrinology [address] [place] [address] Shanice Llamas MD [address] [place] [address] 12/14/2025 11:00 AM CDT Office Visit [facility] Heart and Vascular - [facility] [address] [place] [address] Nam Coto MD [address] [address] [place] [address] documented as of this encounter Visit Diagnoses Not on filedocumented in this encounter Additional Health Concerns Infection Onset Date Last Indicated Resolved Time R/O COVID-19 12/28/2019 12/28/2019 12/30/2019 5:45 AM CDT COVID-19 12/28/2019 12/28/2019 01/27/2020 1:16 AM CDT documented as of this encounter Care Teams Quality Assurance Clerk Relationship Specialty [place] [address] [place] [address] PCP - General 01/02/25 documented as of this encounter
--- OUTSIDE RECORDS SUMMARY | 2025-01-26 12:34 | XMS_ITS | Encounter Summary ---
Author Organization [facility] Address [address] [place] [address] Care Team Providers Care Motion Pictures Cartoonist Name Role Phone Amarjit Mares Primary Care Provide r Encounter Details Date Type Department Care Team (Late Contact Info) Description 01/11/2003 Outpatient Historical HIS [facility] Jeremías Farias MD NO ADDRESS ON FILE Social History Tobacco Use Types Packs/Day Years Used Date Smoking Tobacco: Never Assessed Comments Unknown Sex and Gender Information Value Date Recorded Sex Assigned at Not on file Legal Sex Female 4:29 AM GATHERING MACHINE FEEDER Gender Identity Not on file Sexual Orientation Not on file documented as of this encounter Plan of Treatment Upcoming Encounters Date Type Department Care Team (Late Contact Info) Description 04/18/2025 2:45 PM GATHERING MACHINE FEEDER Office Visit [facility] Orthopedic Surgery at the [facility] [address] [facility] [facility] [place] [address] [place] [address] [place] [address] 05/04/2025 2:45 PM GATHERING MACHINE FEEDER Office Visit [facility] Oncology and Hematology - Paras [address] [place] [address] Nelson Cazares MD [address] [facility] [address] [place] [address] 06/13/2025 10:00 AM CDT Appointment [facility] [address] [facility] [place] [phone] [place] [address] [place] [phone] 06/13/2025 11:05 AM CDT Office Visit [facility] Breast Surgery Jazmin Couch [address] [place] [phone] [place] [address] [place] [address] 07/13/2025 10:00 AM CDT Office Visit [facility] Endocrinology [address] [place] [address] Shanice Llamas MD [address] [place] [address] 12/14/2025 11:00 AM CDT Office Visit [facility] Heart and Vascular - Old [facility] [address] [place] [address] Nam Coto MD [address] [facility] [address] [place] [address] documented as of this encounter Visit Diagnoses Not on filedocumented in this encounter Additional Health Concerns Infection Onset Date Last Indicated Resolved Time R/O COVID-19 12/28/2019 12/28/2019 12/30/2019 5:45 AM CDT COVID-19 12/28/2019 12/28/2019 01/27/2020 1:16 AM CDT documented as of this encounter Care Teams Motion Pictures Cartoonist Relationship Specialty [place] [address] [address] [place] [address] PCP - General 01/02/25 documented as of this encounter
--- OUTSIDE RECORDS SUMMARY | 2025-01-26 12:34 | XMS_ITS | Encounter Summary ---
Author Organization [facility] Address [address] [place] [address] Care Team Providers Care Plant Pathology Teacher Name Role Phone Amarjit Mares Primary Care Provide r Encounter Details Date Type Department Care Team (Late Contact Info) Description 09/13/2002 Outpatient Historical HIS [facility] Jeremías Farias MD NO ADDRESS ON FILE Social History Tobacco Use Types Packs/Day Years Used Date Smoking Tobacco: Never Assessed Comments Unknown Sex and Gender Information Value Date Recorded Sex Assigned at Not on file Legal Sex Female 4:29 AM QUALITY ASSISTANT Gender Identity Not on file Sexual Orientation Not on file documented as of this encounter Plan of Treatment Upcoming Encounters Date Type Department Care Team (Late Contact Info) Description 04/18/2025 2:45 PM QUALITY ASSISTANT Office Visit [facility] Orthopedic Surgery at the [facility] [address] [place] [address] [place] [address] [place] [address] 05/04/2025 2:45 PM QUALITY ASSISTANT Office Visit [facility] Oncology and Hematology - Paras [address] [place] [address] Nelson Cazares MD [address] [facility] [address] [place] [address] 06/13/2025 10:00 AM CDT Appointment [facility] [address] [place] [phone] [place] [address] [place] [phone] 06/13/2025 11:05 AM CDT Office Visit [facility] Breast Surgery Jazmin Couch [address] [place] [phone] [place] [address] [place] [address] 07/13/2025 10:00 AM CDT Office Visit [facility] Endocrinology [address] [place] [address] Shanice Llamas MD [address] [place] [address] 12/14/2025 11:00 AM CDT Office Visit [facility] Heart and Vascular - [facility] [address] [place] [address] Nam Coto MD [address] [facility] [address] [place] [address] documented as of this encounter Visit Diagnoses Not on filedocumented in this encounter Additional Health Concerns Infection Onset Date Last Indicated Resolved Time R/O COVID-19 12/28/2019 12/28/2019 12/30/2019 5:45 AM CDT COVID-19 12/28/2019 12/28/2019 01/27/2020 1:16 AM CDT documented as of this encounter Care Teams Plant Pathology Teacher Relationship Specialty [place] [address] [place] [address] PCP - General 01/02/25 documented as of this encounter
--- OUTSIDE RECORDS SUMMARY | 2025-01-26 12:34 | XMS_ITS | Encounter Summary ---
Author Organization [facility] Address [address] [place] [address] Care Team Providers Care Lever Miller Name Role Phone Amarjit Mares Primary Care Provide r Encounter Details Date Type Department Care Team (Latest Contact Info) Description 01/10/2002 Outpatient Historical HIS [facility] Jeremías Torres MD NO ADDRESS ON FILE BENIGN HYPERTENSION (Primary Dx) Social History Tobacco Use Types Packs/Day Years Used Date Smoking Tobacco: Never Assessed Comments Unknown Sex and Gender Information Value Date Recorded Sex Assigned at Not on file Legal Sex Female 4:29 AM SYSTEM INTEGRATION ENGINEER Gender Identity Not on file Sexual Orientation Not on file documented as of this encounter Plan of Treatment Upcoming Encounters Date Type Department Care Team (Late st Contact Info) Description 04/18/2025 2:45 PM SYSTEM INTEGRATION ENGINEER Office Visit [facility] Orthopedic Surgery at the [facility] [address] [place] [address] [place] [address] [place] [address] 05/04/2025 2:45 PM SYSTEM INTEGRATION ENGINEER Office Visit [facility] Oncology and Hematology - Paras [address] [facility] [place] [address] Nelson Cazares MD [address] [facility] [address] [place] [address] 06/13/2025 10:00 AM CDT Appointment [facility] Jersey Couch [address] [facility] [place] [phone] [place] [address] [place] [phone] 06/13/2025 11:05 AM CDT Office Visit [facility] Breast Surgery Jersey Couch [address] [place] [address] [place] [address] [place] [address] 07/13/2025 10:00 AM CDT Office Visit [facility] Endocrinology [address] [place] [address] Shanice Llamas MD [address] [facility] [address] [place] [address] 12/14/2025 11:00 AM CDT Office Visit [facility] Heart and Vascular - [facility] [address] [place] [address] Nam Coto MD [address] [facility] [address] [place] [address] documented as of this encounter Visit Diagnoses Diagnosis Essential hypertension, benign- Primary documented in this encounter Additional Health Concerns Infection Onset Date Last Indicated Resolved Time R/O COVID-19 12/28/2019 12/28/2019 12/30/2019 5:45 AM CDT COVID-19 12/28/2019 12/28/2019 01/27/2020 1:16 AM CDT documented as of this encounter Care Teams Lever Miller Relationship Specialty [place] [address] [facility] [address] [place] [address] PCP - General 10/6/25 documented as of this encounter
--- OUTSIDE RECORDS SUMMARY | 2025-01-26 12:34 | XMS_ITS | Encounter Summary ---
Author Organization [facility] Address [address] [place] [address] Care Team Providers Care Financial Investment Manager Name Role Phone Amarjit Mares Primary Care Provide r Encounter Details Date Type Department Care Team (Late st Contact Info) Description 02/21/2004 Outpatient Historical [facility] Boy Kaufman MD [address] [place] [address] BENIGN NEOPLASM LG BOWEL (Primary Dx) Social History Tobacco Use Types Packs/Day Years Used Date Smoking Tobacco: Never Assessed Comments Unknown Sex and Gender Information Value Date Recorded Sex Assigned at Not on file Legal Sex Female 4:29 AM MUSHROOM CULTIVATOR Gender Identity Not on file Sexual Orientation Not on file documented as of this encounter Plan of Treatment Upcoming Encounters Date Type Department Care Team (Late st Contact Info) Description 04/18/2025 2:45 PM MUSHROOM CULTIVATOR Office Visit [facility] Orthopedic Surgery at the [facility] Medicine [address] [facility] [address] [place] [address] [place] [address] [place] [address] 05/04/2025 2:45 PM MUSHROOM CULTIVATOR Office Visit [facility] Oncology and Hematology - Paras [address] [place] [address] Nelson Cazares MD [address] [facility] [address] [place] [address] 06/13/2025 10:00 AM CDT Appointment [facility] [place] [address] [place] [address] [place] [address] [place] [address] 06/13/2025 11:05 AM CDT Office Visit [facility] Breast Surgery Jersey Couch [address] [place] [address] [place] [address] [facility] [address] [place] [address] 07/13/2025 10:00 AM CDT Office Visit [facility] Endocrinology [address] [facility] [address] [place] [address] Shanice Llamas MD [address] [facility] [address] [place] [address] 12/14/2025 11:00 AM CDT Office Visit [facility] Heart and Vascular - [facility] [address] [facility] [address] [place] [address] Nam Coto MD [address] [facility] [address] [place] [address] documented as of this encounter Visit Diagnoses Diagnosis Benign neoplasm of colon- Primary documented in this encounter Additional Health Concerns Infection Onset Date Last Indicated Resolved Time R/O COVID-19 12/28/2019 12/28/2019 12/30/2019 5:45 AM CDT COVID-19 12/28/2019 12/28/2019 01/27/2020 1:16 AM CDT documented as of this encounter Care Teams Financial Investment Manager Relationship Specialty [place] [address] [facility] [address] [place] [address] PCP - General 01/02/25 documented as of this encounter
--- OUTSIDE RECORDS SUMMARY | 2025-01-26 12:34 | XMS_ITS | Encounter Summary ---
Author Organization [facility] Address [address] [place] [address] Care Team Providers Care Sausage Grinder Name Role Phone Amarjit Mares Primary Care Provide r Encounter Details Date Type Department Care Team (Late Contact Info) Description 06/07/2002 Outpatient Historical HIS [facility] Jeremías Farias MD NO ADDRESS ON FILE Social History Tobacco Use Types Packs/Day Years Used Date Smoking Tobacco: Never Assessed Comments Unknown Sex and Gender Information Value Date Recorded Sex Assigned at Not on file Legal Sex Female 4:29 AM CARD SELLER Gender Identity Not on file Sexual Orientation Not on file documented as of this encounter Plan of Treatment Upcoming Encounters Date Type Department Care Team (Late Contact Info) Description 04/18/2025 2:45 PM CARD SELLER Office Visit [facility] Orthopedic Surgery at the [facility] [address] [facility] [address] [place] [address] [place] [address] [place] [address] 05/04/2025 2:45 PM CARD SELLER Office Visit [facility] Oncology and Hematology - Paras [address] [place] [address] Nelson Cazares MD [address] [facility] [address] [place] [address] 06/13/2025 10:00 AM CDT Appointment [facility] [address]azmin [address] [place] [phone] [place] [address] [place] [address] 06/13/2025 11:05 AM CDT Office Visit [facility] Breast Surgery Jazmin Couch [address] [place] [phone] [place] [address] [place] [address] 07/13/2025 10:00 AM CDT Office Visit [facility] Endocrinology [address] [place] [address] Shanice Llamas MD [address] [place] [address] 12/14/2025 11:00 AM CDT Office Visit [facility] Heart and Vascular - [facility] [address] [place] [address] Nma Coto MD [address] [facility] [address] [place] [address] documented as of this encounter Visit Diagnoses Not on filedocumented in this encounter Additional Health Concerns Infection Onset Date Last Indicated Resolved Time R/O COVID-19 12/28/2019 12/28/2019 12/30/2019 5:45 AM CDT COVID-19 12/28/2019 12/28/2019 01/27/2020 1:16 AM CDT documented as of this encounter Care Teams Sausage Grinder Relationship Specialty [place] [address] [address] [place] [address] PCP - General 01/02/25 documented as of this encounter
--- OUTSIDE RECORDS SUMMARY | 2025-01-26 12:34 | XMS_ITS | Encounter Summary ---
Author Organization [facility] Address [address] [place] [address] Care Team Providers Care Accounting Software Specialist Name Role Phone Amarjit Mares Primary Care Provide r Encounter Details Date Type Department Care Team (Latest Contact Info) Description 09/13/2002 Outpatient Historical HIS [facility] Jeremías Torres MD NO ADDRESS ON FILE LIVER DISORDER NOS (Primary Dx) Social History Tobacco Use Types Packs/Day Years Used Date Smoking Tobacco: Never Assessed Comments Unknown Sex and Gender Information Value Date Recorded Sex Assigned at Not on file Legal Sex Female 4:29 AM LAND APPRAISER Gender Identity Not on file Sexual Orientation Not on file documented as of this encounter Plan of Treatment Upcoming Encounters Date Type Department Care Team (Late st Contact Info) Description 04/18/2025 2:45 PM LAND APPRAISER Office Visit [facility] Orthopedic Surgery at the [facility] [address] [facility] [address] [place] [address] [place] [address] [place] [address] 05/04/2025 2:45 PM LAND APPRAISER Office Visit [facility] Oncology and Hematology - Paras [address] [place] [address] Nelson Cazares MD [address] [facility] [address] [place] [address] 06/13/2025 10:00 AM CDT Appointment [facility] [address] [place] [address] [place] [address] [place] [phone] 06/13/2025 11:05 AM CDT Office Visit [facility] Breast Surgery [place] [address]ouch [address] [place] [address] [place] [address] [place] [address] 07/13/2025 10:00 AM CDT Office Visit [facility] Endocrinology [address] [place] [address] Shanice Llamas MD [address] [place] [address] 12/14/2025 11:00 AM CDT Office Visit [facility] Heart and Vascular - [facility] [address] [place] [address] Nam Coto MD [address] [facility] [address] [place] [address] documented as of this encounter Visit Diagnoses Diagnosis Unspecified disorder of liver- Primary documented in this encounter Additional Health Concerns Infection Onset Date Last Indicated Resolved Time R/O COVID-19 12/28/2019 12/28/2019 12/30/2019 5:45 AM CDT COVID-19 12/28/2019 12/28/2019 01/27/2020 1:16 AM CDT documented as of this encounter Care Teams Accounting Software Specialist Relationship Specialty [place] [address] [facility] [address] [place] [address] PCP - General 01/02/25 documented as of this encounter
--- OUTSIDE RECORDS SUMMARY | 2025-01-26 12:34 | XMS_ITS | Encounter Summary ---
Author Organization [facility] Address [address] [place] [address] Care Team Providers Care Microgrinder Operator Name Role Phone Amarjit Mares Primary Care Provide r Encounter Details Date Type Department Care Team (Latest Contact Info) Description 01/11/2003 Outpatient Historical HIS [facility] Jeremías Torres MD NO ADDRESS ON FILE DIABETES UNCOMPL ADULT-TYPE II (CMS/HCC) (Primary Dx) Social History Tobacco Use Types Packs/Day Years Used Date Smoking Tobacco: Never Assessed Comments Unknown Sex and Gender Information Value Date Recorded Sex Assigned at Not on file Legal Sex Female 4:29 AM STEAM FITTER SUPERVISOR Gender Identity Not on file Sexual Orientation Not on file documented as of this encounter Plan of Treatment Upcoming Encounters Date Type Department Care Team (Late st Contact Info) Description 04/18/2025 2:45 PM STEAM FITTER SUPERVISOR Office Visit [facility] Orth[facility] Surgery at the [facility] [address] [facility] [address] [place] [address] [place] [address] [place] [address] 05/04/2025 2:45 PM STEAM FITTER SUPERVISOR Office Visit [facility] Oncology and Hematology - Paras [address] [place] [address] Nelson Cazares MD [address] [facility] [facility] [address] [place] [address] 06/13/2025 10:00 AM CDT Appointment [facility] [place] [address] [address] [place] [address] [place] [address] [place] [address] 06/13/2025 11:05 AM CDT Office Visit [facility] Breast Surgery [place] [address] [place] [address] [place] [address] [place] [address] 07/13/2025 10:00 AM CDT Office Visit [facility] Endocrinology [address] [facility] [address] [place] [address] Shanice Llamas MD [address] [facility] [address] [place] [address] 12/14/2025 11:00 AM CDT Office Visit [facility] Heart and Vascular - [facility] [address] [facility] [address] [place] [address] Nam Coto MD [address] [facility] [address] [place] [address] documented as of this encounter Visit Diagnoses Diagnosis Type II or unspecified type diabetes mellitus without mention of complication, not stated as uncontrolled- Primary documented in this encounter Additional Health Concerns Infection Onset Date Last Indicated Resolved Time R/O COVID-19 12/28/2019 12/28/2019 12/30/2019 5:45 AM CDT COVID-19 12/28/2019 12/28/2019 01/27/2020 1:16 AM CDT documented as of this encounter Care Teams Microgrinder Operator Relationship Specialty [place] [address] [address] [place] [address] PCP - General 01/02/25 documented as of this encounter
--- OUTSIDE RECORDS SUMMARY | 2025-01-26 12:34 | XMS_ITS | Encounter Summary ---
Author Organization [facility] Address [address] [place] [address] Care Team Providers Care Laboratory Phlebotomist Name Role Phone Amarjit Mares Primary Care Provide r Encounter Details Date Type Department Care Team (Latest Contact Info) Description 05/23/2002 Outpatient Historical HIS [facility] Jeremías Torres MD NO ADDRESS ON FILE BENIGN HYPERTENSION (Primary Dx) Social History Tobacco Use Types Packs/Day Years Used Date Smoking Tobacco: Never Assessed Comments Unknown Sex and Gender Information Value Date Recorded Sex Assigned at Not on file Legal Sex Female 4:29 AM VENDING MACHINE TECHNICIAN Gender Identity Not on file Sexual Orientation Not on file documented as of this encounter Plan of Treatment Upcoming Encounters Date Type Department Care Team (Late st Contact Info) Description 04/18/2025 2:45 PM VENDING MACHINE TECHNICIAN Office Visit [facility] Orthopedic Surgery at the [facility] [address] [facility] [address] [place] [address] [place] [address] [place] [address] 05/04/2025 2:45 PM VENDING MACHINE TECHNICIAN Office Visit [facility] Oncology and Hematology - Paras [address] [facility] [address] [place] [address] Nelson Cazares MD [address] [facility] [address] [place] [address] 06/13/2025 10:00 AM CDT Appointment [facility] [address] [place] [phone] [place] [address] [place] [phone] 06/13/2025 11:05 AM CDT Office Visit [facility] [place] [address] [place] [address] [place] [address] [place] [address] 07/13/2025 10:00 AM CDT Office Visit [facility] Endocrinology [address] [facility] [address] [place] [address] Shanice Llamas MD [address] [facility] [place] [address] 12/14/2025 11:00 AM CDT Office Visit [facility] Heart and Vascular - [facility] [address] [place] [address] Nam Coto MD [address] [facility] [address] [place] [address] documented as of this encounter Visit Diagnoses Diagnosis Essential hypertension, benign- Primary documented in this encounter Additional Health Concerns Infection Onset Date Last Indicated Resolved Time R/O COVID-19 12/28/2019 12/28/2019 12/30/2019 5:45 AM CDT COVID-19 12/28/2019 12/28/2019 01/27/2020 1:16 AM CDT documented as of this encounter Care Teams Laboratory Phlebotomist Relationship Specialty Start [place] [address] [facility] [address] [place] [address] PCP - General 10/6/25 documented as of this encounter
--- OUTSIDE RECORDS SUMMARY | 2025-01-26 12:34 | XMS_ITS | Encounter Summary ---
Author Organization [facility] Address [address] [place] [address] Care Team Providers Care Chute Worker Name Role Phone Amarjit Mares Primary Care Provide r Encounter Details Date Type Department Care Team (Late Contact Info) Description 01/10/2002 Outpatient [address] [facility] Jeremías Farias MD NO ADDRESS ON FILE Social History Tobacco Use Types Packs/Day Years Used Date Smoking Tobacco: Never Assessed Comments Unknown Sex and Gender Information Value Date Recorded Sex Assigned at Not on file Legal Sex Female 4:29 AM BARREL CLEANER Gender Identity Not on file Sexual Orientation Not on file documented as of this encounter Plan of Treatment Upcoming Encounters Date Type Department Care Team (Late Contact Info) Description 04/18/2025 2:45 PM BARREL CLEANER Office Visit [facility] Orthopedic Surgery at the [facility] [address] [facility] [address] [place] [address] [place] [address] [place] [address] 05/04/2025 2:45 PM BARREL CLEANER Office Visit [facility] Oncology and Hematology - Paras [address] [place] [address] Nelson Cazares MD [address] [facility] [address] [place] [address] 06/13/2025 10:00 AM CDT Appointment [facility] [address] [facility] [place] [phone] [place] [address] [place] [address] 06/13/2025 11:05 AM CDT Office [facility] Breast Surgery [place] [address] [place] [address] [place] [address] [place] [address] 07/13/2025 10:00 AM CDT Office Visit [facility] Endocrinology [address] [facility] [address] [place] [address] Shanice Llamas MD [address] [facility] [address] [place] [address] 12/14/2025 11:00 AM CDT Office Visit [facility] Heart and Vascular - [facility] [address] [place] [address] Nam Coto MD [address] [facility] [address] [place] [address] documented as of this encounter Visit Diagnoses Not on filedocumented in this encounter Additional Health Concerns Infection Onset Date Last Indicated Resolved Time R/O COVID-19 12/28/2019 12/28/2019 12/30/2019 5:45 AM CDT COVID-19 12/28/2019 12/28/2019 01/27/2020 1:16 AM CDT documented as of this encounter Care Teams Chute Worker Relationship Specialty [place] [address] [address] [place] [address] PCP - General 01/02/25 documented as of this encounter
--- OUTSIDE RECORDS SUMMARY | 2025-01-26 12:34 | XMS_ITS | Encounter Summary ---
Author Organization [facility] Address [address] [place] [address] Care Team Providers Care Higher Level Teaching Assistant Name Role Phone Amarjit Mares Primary Care Provide r Encounter Details Date Type Department Care Team (Latest Contact Info) Description 05/22/2004 Outpatient Historical [facility] [address], [address] [place] [address] Jeremías Farias MD NO ADDRESS ON FILE DIABETES MELLITUS TYPE II-UNCOMPL (CMS/HCC) (Primary Dx) Social History Tobacco Use Types Packs/Day Years Used Date Smoking Tobacco: Never Assessed Comments Unknown Sex and Gender Information Value Date Recorded Sex Assigned at Not on file Legal Sex Female 4:29 AM LOAD PLANNER Gender Identity Not on file Sexual Orientation Not on file documented as of this encounter Plan of Treatment Upcoming Encounters Date Type Department Care Team (Late st Contact Info) Description 04/18/2025 2:45 PM LOAD PLANNER Office Visit [facility] Orthopedic Surgery at the [facility] [address] [place] [address] [place] [address] [place] [address] 05/04/2025 2:45 PM LOAD PLANNER Office Visit [facility] Oncology and Hematology - Paras [address] [place] [address] Nelson Cazares MD [address] [facility] [address] [place] [address] 06/13/2025 10:00 AM CDT Appointment [facility] [place] [address] [place] [phone] [place] [address] [place] [address] 06/13/2025 11:05 AM CDT Office Visit [facility] Breast Surgery [place] Khoa [address] [place] [address] [place] [address] [place] [address] 07/13/2025 10:00 AM CDT Office Visit [facility] Endocrinology [address] [facility] [address] [place] [address] Shanice Llamas MD [address] [facility] [address] [place] [address] 12/14/2025 11:00 AM CDT Office Visit [facility] Heart and Vascular - [facility] [address] [facility] [address] [place] [address] Nam Coto MD [address] [facility] [address] [place] [address] documented as of this encounter Visit Diagnoses Diagnosis Type II or unspecified type diabetes mellitus without mention of complication, not stated as uncontrolled- Primary documented in this encounter Additional Health Concerns Infection Onset Date Last Indicated Resolved Time R/O COVID-19 12/28/2019 12/28/2019 12/30/2019 5:45 AM CDT COVID-19 12/28/2019 12/28/2019 01/27/2020 1:16 AM CDT documented as of this encounter Care Teams Higher Level Teaching Assistant Relationship Specialty [place] [address] [facility] [address] [place] [address] PCP - General 01/02/25 documented as of this encounter
--- OUTSIDE RECORDS SUMMARY | 2025-01-26 12:34 | XMS_ITS | Encounter Summary ---
Author Organization [facility] Address [address] [place] [address] Care Team Providers Care Live Hanger Name Role Phone Vishnu Amarjit Brunson Primary Care Provide r Encounter Details Date Type Department Care Team (Late st Contact Info) Description 05/03/2004 Outpatient Historical [facility] MACHINE INSPECTOR May[address] [place], [address] [place] [address] Samantha Kwan MD [address] [facility] [address] [address] DIABETES MELLITUS TYPE II-UNCOMPL (CMS/HCC) (Primary Dx) Social History Tobacco Use Types Packs/Day Years Used Date Smoking Tobacco: Never Assessed Comments Unknown Sex and Gender Information Value Date Recorded Sex Assigned at Not on file Legal Sex Female 4:29 AM DIESEL POWER MECHANIC Gender Identity Not on file Sexual Orientation Not on file documented as of this encounter Plan of Treatment Upcoming Encounters Date Type Department Care Team (Late st Contact Info) Description 04/18/2025 2:45 PM DIESEL POWER MECHANIC Office Visit [facility] Orth[facility] Surgery at the [facility] [address] [facility] [address] [place] [address] [place] [address] [place] [address] 05/04/2025 2:45 PM DIESEL POWER MECHANIC Office Visit [facility] Oncology and Hematology - Paras [address] [facility] [address] [place] [address] Nelson Cazares MD [address] [facility] [address] [place] [address] 06/13/2025 10:00 AM CDT Appointment [facility] [address] [place] [address] [place] [address] [place] [address] 06/13/2025 11:05 AM CDT [facility] [address] [facility] [address] [place] [address] [place] [address] [place] [address] 07/13/2025 10:00 AM CDT Office Visit [facility] Endocrinology [address] [place] [address] Shanice Llamas MD [address] [place] [address] 12/14/2025 11:00 AM CDT Office Visit [facility] [place] [facility] Heart and Vascular - [facility] [address] [place] [address] Nam Coto MD [address] [facility] [address] [place] [address] documented as of this encounter Visit Diagnoses Diagnosis Type II or unspecified type diabetes mellitus without mention of complication, not stated as uncontrolled- Primary documented in this encounter Additional Health Concerns Infection Onset Date Last Indicated Resolved Time R/O COVID-19 12/28/2019 12/28/2019 12/30/2019 5:45 AM CDT COVID-19 12/28/2019 12/28/2019 01/27/2020 1:16 AM CDT documented as of this encounter Care Teams Live Hanger Relationship Specialty [place] [address] [facility] [address] [place] [address] PCP - General 01/02/25 documented as of this encounter
--- OUTSIDE RECORDS SUMMARY | 2025-01-26 12:34 | XMS_ITS | Encounter Summary ---
Author Organization [facility] Address [address] [place] [address] Care Team Providers Care Airplane Pilot Supervisor Name Role Phone Amarjit Mares Primary Care Provide r Encounter Details Date Type Department Care Team (Latest Contact Info) Description 12/27/2002 Outpatient Historical [facility] WEN Anderson, Fabio Macedo MD NO ADDRESS ON FILE URIN TRACT INFECTION NOS (Primary Dx) Social History Tobacco Use Types Packs/Day Years Used Date Smoking Tobacco: Never Assessed Comments Unknown Sex and Gender Information Value Date Recorded Sex Assigned at Not on file Legal Sex Female 4:29 AM DELIVERY COORDINATOR Gender Identity Not on file Sexual Orientation Not on file documented as of this encounter Plan of Treatment Upcoming Encounters Date Type Department Care Team (Late st Contact Info) Description 04/18/2025 2:45 PM DELIVERY COORDINATOR Office Visit [facility] Orth[facility] Surgery at the [facility] [address] [facility] [address] [place] [address] [place] [address] [place] [address] 05/04/2025 2:45 PM DELIVERY COORDINATOR Office Visit [facility] Oncology and Hematology - Paras [address] [place] [address] Nelson Cazares MD [address] [facility] [address] [place] [address] 06/13/2025 10:00 AM CDT Appointment [facility] [address] [place] [address] [place] [address] [place] [address] 06/13/2025 11:05 AM CDT Office Visit [facility] Breast Surgery [place] [address] [place] [address] [place] [address] [place] [address] 07/13/2025 10:00 AM CDT Office Visit [facility] Endocrinology [address] [place] [address] Shanice Llamas MD [address] [place] [address] 12/14/2025 11:00 AM CDT Office Visit [facility] Heart and Vascular - [facility] [address] [facility] [address] [place] [address] Nam Coto MD [address] [facility] [address] [place] [address] documented as of this encounter Visit Diagnoses Diagnosis Urinary tract infection, site not specified- Primary documented in this encounter Additional Health Concerns Infection Onset Date Last Indicated Resolved Time R/O COVID-19 12/28/2019 12/28/2019 12/30/2019 5:45 AM CDT COVID-19 12/28/2019 12/28/2019 01/27/2020 1:16 AM CDT documented as of this encounter Care Teams Airplane Pilot Supervisor Relationship Specialty Start [place] [address] [facility] [address] [place] [address] PCP - General 01/02/25 documented as of this encounter
--- OUTSIDE RECORDS SUMMARY | 2025-01-26 12:34 | XMS_ITS | Encounter Summary ---
Author Organization [facility] Address [address] [place] [address] Care Team Providers Care Car Storer Name Role Phone Amarjit Mares Primary Care [...] on file Legal Sex Female 4:29 AM ATTENDANT CHILD ACTIVITY Gender Identity Not on file Sexual Orientation Not on file documented as of this encounter Plan of Treatment Upcoming Encounters Date Type Department Care Team (Late st Contact Info) Description 04/18/2025 2:45 PM ATTENDANT CHILD ACTIVITY Office Visit [facility] at the [facility] [address] [facility] [address] [place] [address] [place] [address] [place] [address] 05/04/2025 2:45 PM ATTENDANT CHILD ACTIVITY Office Visit [facility] Oncology and Hematology - Paras [address] [place] [address] Nelson Cazares MD [address] [facility] [address] [place] [address] 06/13/2025 10:00 AM CDT Appointment [facility] [place] [address] [place] [phone] [place] [address] [place] [address] 06/13/2025 11:05 AM CDT Office Visit [facility] Breast Surgery [place] [address] [place] [address] [place] [address] [place] [address] 07/13/2025 10:00 AM CDT Office Visit [facility] Endocrinology [address] [facility] [address] [place] [address] Shanice Llamas MD [address] [place] [address] 12/14/2025 11:00 AM CDT Office Visit [facility] Heart and Vascular - [facility] [address] [place] [address] Nam Coto MD [address] [facility] [address] [place] [address] documented as of this encounter Visit Diagnoses Diagnosis Unspecified sinusitis (chronic)- Primary documented in this encounter Additional Health Concerns Infection Onset Date Last Indicated Resolved Time R/O COVID-19 12/28/2019 12/28/2019 12/30/2019 5:45 AM CDT COVID-19 12/28/2019 12/28/2019 01/27/2020 1:16 AM CDT documented as of this encounter Care Teams Car Storer Relationship Specialty [place] [address] [facility] [address] [place] [address] PCP - General 01/02/25 documented as of this encounter
--- OUTSIDE RECORDS SUMMARY | 2025-01-26 12:34 | XMS_ITS | Encounter Summary ---
Author Organization [facility] Address [address] [place] [address] Care Team Providers Care City Superintendent Name Role Phone Amarjit Mares Primary Care Provide r Encounter Details Date Type Department Care Team (Latest Contact Info) Description 03/21/2002 Outpatient Historical HIS [facility] Jeremías Torres MD NO ADDRESS ON FILE URIN TRACT INFECTION NOS (Primary Dx) Social History Tobacco Use Types Packs/Day Years Used Date Smoking Tobacco: Never Assessed Comments Unknown Sex and Gender Information Value Date Recorded Sex Assigned at Not on file Legal Sex Female 4:29 AM CHIEF HYDROELECTRIC STATION OPERATOR Gender Identity Not on file Sexual Orientation Not on file documented as of this encounter Plan of Treatment Upcoming Encounters Date Type Department Care Team (Late st Contact Info) Description 04/18/2025 2:45 PM CHIEF HYDROELECTRIC STATION OPERATOR Office Visit [facility] Orthopedic Surgery at the [facility] [address] [facility] [address] [place] [address] [place] [address] [place] [address] 05/04/2025 2:45 PM CHIEF HYDROELECTRIC STATION OPERATOR Office Visit [facility] Oncology and Hematology - Paras [address] [place] [address] Nelson Cazares MD [address] [facility] [address] [place] [address] 06/13/2025 10:00 AM CDT Appointment [facility] [address] [place] [address] [place] [address] [place] [address] 06/13/2025 11:05 AM CDT Office Visit [facility] Breast Surgery [place] [address] [place] [address] [place] [address] [place] [address] 07/13/2025 10:00 AM CDT Office Visit [facility] Endocrinology [address] [place] [address] Shanice Llamas MD [address] [facility] [address] [place] [address] 12/14/2025 11:00 AM CDT Office Visit [facility] Heart and Vascular - [facility] [address] [place] [address] Nam Coto MD [address] [facility] [address] [place] [address] documented as of this encounter Visit Diagnoses Diagnosis Urinary tract infection, site not specified- Primary documented in this encounter Additional Health Concerns Infection Onset Date Last Indicated Resolved Time R/O COVID-19 12/28/2019 12/28/2019 12/30/2019 5:45 AM CDT COVID-19 12/28/2019 12/28/2019 01/27/2020 1:16 AM CDT documented as of this encounter Care Teams City Superintendent Relationship Specialty [place] [address] [facility] [address] [place] [address] PCP - General 01/02/25 documented as of this encounter
--- OUTSIDE RECORDS SUMMARY | 2025-01-26 12:34 | XMS_ITS | Encounter Summary ---
Author Organization [facility] Address [address] [place] [address] Care Team Providers Care Director Custom Name Role Phone Amarjit Mares Primary Care Provide r Encounter Details Date Type Department Care Team (Latest Contact Info) Description 02/15/2004 Outpatient Historical [facility] Jeremías Torres MD NO ADDRESS ON FILE COUGH (Primary Dx) Social History Tobacco Use Types Packs/Day Years Used Date Smoking Tobacco: Never Assessed Comments Unknown Sex and Gender Information Value Date Recorded Sex Assigned at Not on file Legal Sex Female 4:29 AM HEATER HELPER Gender Identity Not on file Sexual Orientation Not on file documented as of this encounter Plan of Treatment Upcoming Encounters Date Type Department Care Team (Late st Contact Info) Description 04/18/2025 2:45 PM HEATER HELPER Office Visit [facility] Orthopedic Surgery at the [facility] [address] [place] [address] [place] [address] [place] [address] 05/04/2025 2:45 PM HEATER HELPER Office Visit [facility] Oncology and Hematology - Paras [address] [place] [address] [place] Cazares MD [address] [facility] [address] [place] [address] 06/13/2025 10:00 AM CDT Appointment [facility] [place] [address] [facility] [place] [phone] [place] [address] [place] [address] 06/13/2025 11:05 AM CDT Office Visit [facility] Breast Surgery [place] [address] [place] [address] [place] [address] [place] [address] 07/13/2025 10:00 AM CDT Office Visit [facility] Endocrinology [address] [place] [address] Shanice Llamas MD [address] [place] [address] 12/14/2025 11:00 AM CDT Office Visit [facility] Heart and Vascular - [facility] [address] [place] [address] Nam Coto MD [address] [facility] [address] [place] [address] documented as of this encounter Visit Diagnoses Diagnosis Cough- Primary documented in this encounter Additional Health Concerns Infection Onset Date Last Indicated Resolved Time R/O COVID-19 12/28/2019 12/28/2019 12/30/2019 5:45 AM CDT COVID-19 12/28/2019 12/28/2019 01/27/2020 1:16 AM CDT documented as of this encounter Care Teams Director Custom Relationship Specialty [place] [address] [facility] [facility] [place] [address] PCP - General 01/02/25 documented as of this encounter
--- OUTSIDE RECORDS SUMMARY | 2025-01-26 12:34 | XMS_ITS | Encounter Summary ---
Author Organization [facility] Address [address] [place] [address] Care Team Providers Care Regional Sales Coordinator Name Role Phone Amarjit Mares Primary Care Provide r Encounter Details Date Type Department Care Team (Late st Contact Info) Description 12/27/2002 Outpatient Historical [facility] INTERNISTS Fabio Anderson MD NO ADDRESS ON FILE Social History Tobacco Use Types Packs/Day Years Used Date Smoking Tobacco: Never Assessed Comments Unknown Sex and Gender Information Value Date Recorded Sex Assigned at Not on file Legal Sex Female 4:29 AM SENIOR IT PROJECT MANAGER Gender Identity Not on file Sexual Orientation Not on file documented as of this encounter Plan of Treatment Upcoming Encounters Date Type Department Care Team (Late st Contact Info) Description 04/18/2025 2:45 PM SENIOR IT PROJECT MANAGER Office Visit [facility] Orthopedic Surgery at the [facility] [place] [address] [place] [address] [place] [address] [place] [address] 05/04/2025 2:45 PM SENIOR IT PROJECT MANAGER Office Visit [facility] Oncology and Hematology - Paras [address] [place] [address] [place] Cazares MD [address] [facility] [address] [place] [address] 06/13/2025 10:00 AM CDT Appointment [facility] [place] [address] [address] [place] [phone] [place] [address] [place] [address] 06/13/2025 11:05 AM CDT Office Visit [facility] Breast Surgery [place] [address] [place] [phone] [place] [address] [place] [address] 07/13/2025 10:00 AM CDT Office Visit [facility] Endocrinology [address] [place] [address] Shanice Llamas MD [address] [place] [address] 12/14/2025 11:00 AM CDT Office Visit [facility] Heart and Vascular - [facility] [address] [place] [address] Nam Coto MD [address] [facility] [address] [place] [address] documented as of this encounter Visit Diagnoses Not on filedocumented in this encounter Additional Health Concerns Infection Onset Date Last Indicated Resolved Time R/O COVID-19 12/28/2019 12/28/2019 12/30/2019 5:45 AM CDT COVID-19 12/28/2019 12/28/2019 01/27/2020 1:16 AM CDT documented as of this encounter Care Teams Regional Sales Coordinator Relationship Specialty [place] [address] [facility] [address] [place] [address] PCP - General 01/02/25 documented as of this encounter
--- OUTSIDE RECORDS SUMMARY | 2025-01-26 12:35 | XMS_ITS | Encounter Summary ---
Author Organization [facility] Address [address] Chambers: Epic Prelude ADT CHEKO KINCAID [address] Care Team Providers Care Metal Burrer Name Role Phone Amarjit Mares Boy Primary Care Provide r Encounter Details Date Type Department Care Team (Latest Contact Info) Description 01/08/2007 Orders Only Yasemin Davis MD Social History Tobacco Use Types Packs/Day Years Used Date Smoking Tobacco: Never Assessed Comments Unknown Sex and Gender Information Value Date Recorded Sex Assigned at Not on file Legal Sex Female 4:29 AM OFFICE RENTAL CLERK Gender Identity Not on file Sexual [...] st Contact Info) Description 04/18/2025 2:45 PM OFFICE RENTAL CLERK Office Visit [facility] Orthopedic Surgery at the [facility] [address] [place] [address] [place] [address] [place] [address] 05/04/2025 2:45 PM OFFICE RENTAL CLERK Office Visit [facility] Oncology and Hematology - Paras [address] [place] [address] [place] Cazares MD [address] [facility] [address] [place] [address] 06/13/2025 10:00 AM CDT Appointment [facility] [place] [address] [address] [place] [address] [place] [address] [place] [address] 06/13/2025 11:05 AM CDT Office [facility] Breast Surgery [place] [address] [place] [address] [place] [address] [place] [address] 07/13/2025 10:00 AM CDT Office Visit [facility] Endocrinology [address] [place] [address] Shanice Llamas MD [address] [place] [address] 12/14/2025 11:00 AM CDT Office Visit [facility] Heart and Vascular - [facility] [address] [place] [address] Nam Coto MD [address] [place] [address] documented as of this encounter Visit Diagnoses Not on filedocumented in this encounter Additional Health Concerns Infection Onset Date Last Indicated Resolved Time R/O COVID-19 12/28/2019 12/28/2019 12/30/2019 5:45 AM CDT COVID-19 12/28/2019 12/28/2019 01/27/2020 1:16 AM CDT documented as of this encounter Care Teams Metal Burrer Relationship Specialty [place] [address] [facility] [address] [place] [address] PCP - General 01/02/25 documented as of this encounter
--- OUTSIDE RECORDS SUMMARY | 2025-01-26 12:35 | XMS_ITS | Encounter Summary ---
Author Organization [facility] Address [address] [place] [address] Care Team Providers Care Hse Manager Name Role Phone Amarjit Mares Primary Care Provide r Encounter Details Date Type Department Care Team (Late st Contact Info) Description 02/25/2007 Outpatient Historical [facility] Luc Hemphill MD [address] [facility] [address] [place] [address] Benign Neoplasm of Stomach (Primary Dx); Nausea with Vomiting Social History Tobacco Use Types Packs/Day Years Used Date Smoking Tobacco: Never Assessed Comments Unknown Sex and Gender Information Value Date Recorded Sex Assigned at Not on file Legal Sex Female 4:29 AM PLATE FITTER Gender Identity Not on file Sexual Orientation Not on file documented as of this encounter Plan of Treatment Upcoming Encounters Date Type Department Care Team (Late st Contact Info) Description 04/18/2025 2:45 PM PLATE FITTER Office Visit [facility] Orthopedic Surgery at the [facility] [address] [place] [address] [place] [address] [place] [address] 05/04/2025 2:45 PM PLATE FITTER Office Visit [facility] Oncology and Hematology - Paras [address] [place] [address] [place] Cazares MD [address] [facility] [address] [place] [address] 06/13/2025 10:00 AM CDT Appointment [facility] [place] [address] [place] [address] [place] [address] [place] [address] [place] [address] 06/13/2025 11:05 AM CDT Office Visit [facility] Breast Surgery [place] [address] [place] [address] [place] [address] [place] [address] [place] [address] 07/13/2025 10:00 AM CDT Office Visit [facility] Endocrinology [address] [place] [address] Shanice Llamas MD [address] [place] [address] 12/14/2025 11:00 AM CDT Office Visit [facility] Heart and Vascular - [facility] [address] [place] [address] Nam Coto MD [address] [facility] [address] [place] [address] documented as of this encounter Visit Diagnoses Diagnosis Benign neoplasm of stomach- Primary Nausea with vomiting documented in this encounter Additional Health Concerns Infection Onset Date Last Indicated Resolved Time R/O COVID-19 12/28/2019 12/28/2019 12/30/2019 5:45 AM CDT COVID-19 12/28/2019 12/28/2019 01/27/2020 1:16 AM CDT documented as of this encounter Care Teams Hse Manager Relationship Specialty [place] [address] [address] [place] [address] PCP - General 01/02/25 documented as of this encounter
--- OUTSIDE RECORDS SUMMARY | 2025-01-26 12:35 | XMS_ITS | Encounter Summary ---
Author Organization [facility] Address [address] [place] [address] Care Team Providers Care Family Member Caretaker Name Role Phone Vishnu Amarjit Brunson Primary Care Provide r Encounter Details Date Type Department Care Team (Late st Contact Info) Description 03/08/2007 Outpatient Historical [facility] Internal Medicine [place] [address] [facility] [address] [place] [address] Saturnino ms, MD Yasemin Social History Tobacco Use Types Packs/Day Years Used Date Smoking Tobacco: Never Assessed Comments Unknown Sex and Gender Information Value Date Recorded Sex Assigned at Not on file Legal Sex Female 4:29 AM PRODUCTION UNDERWRITER Gender Identity Not on file Sexual Orientation Not on file documented as of this encounter Plan of Treatment Upcoming Encounters Date Type Department Care Team (Late st Contact Info) Description 04/18/2025 2:45 PM PRODUCTION UNDERWRITER Office Visit [facility] Orthopedic Surgery at the [facility] [address] [place] [address] [place] [address] [place] [address] 05/04/2025 2:45 PM PRODUCTION UNDERWRITER Office Visit [facility] Oncology and Hematology - Paras [address] [place] [address] [place] Cazares MD [address] [facility] [address] [place] [address] 06/13/2025 10:00 AM CDT Appointment [facility] [place] [place] [address] [place] [address] [place] [address] 06/13/2025 11:05 AM CDT Office [facility] [address] [place] [address] [place] [address] [place] [address] 07/13/2025 10:00 AM CDT Office Visit [facility] Endocrinology [address] [place] [address] Shanice Llamas MD [address] [place] [address] 12/14/2025 11:00 AM CDT Office Visit [facility] Heart and Vascular - [facility] [address] [place] [address] Nam Coto MD [address] [facility] [address] [place] [address] documented as of this encounter Visit Diagnoses Not on filedocumented in this encounter Additional Health Concerns Infection Onset Date Last Indicated Resolved Time R/O COVID-19 12/28/2019 12/28/2019 12/30/2019 5:45 AM CDT COVID-19 12/28/2019 12/28/2019 01/27/2020 1:16 AM CDT documented as of this encounter Care Teams Family Member Caretaker Relationship Specialty [place] [address] [facility] [address] [place] [address] PCP - General 01/02/25 documented as of this encounter
--- OUTSIDE RECORDS SUMMARY | 2025-01-26 12:35 | XMS_ITS | Encounter Summary ---
Author Organization [facility] Address [address] [place] [address] Care Team Providers Care Logistics Director Name Role Phone Amarjit Mares DO Primary Care Provide r Encounter Details Date Type Department Care Team (Late st Contact Info) Description 09/16/2006 Outpatient Historical [facility] Internal Medicine [place] [facility] [address] [place] [address] Saturnino ms, MD Yasemin Social History Tobacco Use Types Packs/Day Years Used Date Smoking Tobacco: Never Assessed Comments Unknown Sex and Gender Information Value Date Recorded Sex Assigned at Not on file Legal Sex Female 4:29 AM UNIT MANAGER CONVENIENCE STORES Gender Identity Not on file Sexual Orientation [...] st Contact Info) Description 04/18/2025 2:45 PM UNIT MANAGER CONVENIENCE STORES Office Visit [facility] Orthopedic Surgery at the [facility] [address] [place] [address] [place] [address] [place] [address] 05/04/2025 2:45 PM UNIT MANAGER CONVENIENCE STORES Office Visit [facility] Oncology and Hematology - Paras [address] [place] [address] [place] Cazares MD [address] [facility] [address] [place] [address] 06/13/2025 10:[address] [facility] [place] [address] [place] [address] [place] [address] [place] [address] 06/13/2025 11:05 AM CDT Office Visit [facility] Breast Surgery [place] [address] [facility] [address] [place] [address] [place] [address] [place] [address] 07/13/2025 10:00 AM CDT Office Visit [facility] Endocrinology [address] [place] [address] Shanice Llamas MD [address] [place] [address] 12/14/2025 11:00 AM CDT Office Visit [facility] Heart and Vascular - [place] [address] [place] [address] Nam Coto MD [address] [facility] [address] [place] [address] documented as of this encounter Visit Diagnoses Not on filedocumented in this encounter Additional Health Concerns Infection Onset Date Last Indicated Resolved Time R/O COVID-19 12/28/2019 12/28/2019 12/30/2019 5:45 AM CDT COVID-19 12/28/2019 12/28/2019 01/27/2020 1:16 AM CDT documented as of this encounter Care Teams Logistics Director Relationship Specialty [place] [address] [facility] [address] [place] [address] PCP - General 01/02/25 documented as of this encounter
--- OUTSIDE RECORDS SUMMARY | 2025-01-26 12:35 | XMS_ITS | Encounter Summary ---
Author Organization [facility] Address [address] Chambers: Epic Prelude ADT CHEKO KINCAID [address] Care Team Providers Care Grades 7 And 8 Teacher Name Role Phone Amarjit Mares Boy Primary Care Provide r Encounter Details Date Type Department Care Team (Latest Contact Info) Description 09/16/2006 Orders Only Yasemin Davis MD Social History Tobacco Use Types Packs/Day Years Used Date Smoking Tobacco: Never Assessed Comments Unknown Sex and Gender Information Value Date Recorded Sex Assigned at Not on file Legal Sex Female 4:29 AM AUDIO/VIDEO ENGINEER Gender Identity Not on file Sexual [...] The patient is being seen by an studio technician video operator. 401.1-HYPERTENSION ESSENTIAL BENIGN The patient has lost [...] The patient is being seen by an firearms model maker. CURRENT MEDICATION LIST: NEXIUM ORAL CAPSULE DELAYED [...] Has no significant smoking history. 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 ALCOHOL: Drinks alcohol occasionally, on a [...] st Contact Info) Description 04/18/2025 2:45 PM AUDIO/VIDEO ENGINEER Office Visit [facility] Orthopedic Surgery at the [facility] [address] [place] [address] [place] [address] [place] [address] 05/04/2025 2:45 PM AUDIO/VIDEO ENGINEER Office Visit [facility] Oncology and Hematology - Paras [address] [place] [address] [place] Czaares MD [address] [facility] [address] [place] [address] 06/13/2025 10:00 AM CDT Appointment [facility] [address] [address] [place] [address] [place] [address] [place] [address] 06/13/2025 11:05 AM CDT Office Visit [facility] Breast Surgery [place]ho[place] [address] [place] [address] [place] [address] [place] [address] 07/13/2025 10:00 AM CDT Office Visit [facility] Endocrinology [address] [place] [address] Shanice Llamas MD [address] [place] [address] 12/14/2025 11:00 AM CDT Office Visit [facility] Heart and Vascular - [place] [address] [place] [address] Nam Coto MD [address] [facility] [address] [place] [address] documented as of this encounter Visit Diagnoses Not on filedocumented in this encounter Additional Health Concerns Infection Onset Date Last Indicated Resolved Time R/O COVID-19 12/28/2019 12/28/2019 12/30/2019 5:45 AM CDT COVID-19 12/28/2019 12/28/2019 01/27/2020 1:16 AM CDT documented as of this encounter Care Teams Grades 7 And 8 Teacher Relationship Specialty [place] [address] [facility] [address] [place] [address] PCP - General 01/02/25 documented as of this encounter
--- OUTSIDE RECORDS SUMMARY | 2025-01-26 12:35 | XMS_ITS | Encounter Summary ---
Author Organization [facility] Address [address] [place] [address] Care Team Providers Care Heat Regulator Name Role Phone Amarjit Mares Primary Care Provide r Encounter Details Date Type Department Care Team (Late Contact Info) Description 06/11/2006 Outpatient Historical [facility] Jeremías Farias MD NO ADDRESS ON FILE Social History Tobacco Use Types Packs/Day Years Used Date Smoking Tobacco: Never Assessed Comments Unknown Sex and Gender Information Value Date Recorded Sex Assigned at Not on file Legal Sex Female 4:29 AM POTATO PEELING MACHINE OPERATOR Gender Identity Not on file Sexual Orientation Not on file documented as of this encounter Plan of Treatment Upcoming Encounters Date Type Department Care Team (Late Contact Info) Description 04/18/2025 2:45 PM POTATO PEELING MACHINE OPERATOR Office Visit [facility] Orthopedic Surgery at the [facility] [address] [place] [address] [place] [address] [place] [address] 05/04/2025 2:45 PM POTATO PEELING MACHINE OPERATOR Office Visit [facility] Oncology and Hematology - Paras [address] [place] [address] [place] Cazares MD [address] [facility] [address] [place] [address] 06/13/2025 10:00 AM CDT Appointment [facility] [address]azmin [address] [place] [address] [place] [address] [place] [address] 06/13/2025 11:05 AM CDT Office Visit [facility] Breast Surgery [place] [address] [place] [address] [place] [address] [place] [address] 07/13/2025 10:00 AM CDT Office Visit [facility] Endocrinology [address] [place] [address] Shanice Llamas MD [address] [place] [address] 12/14/2025 11:00 AM CDT Office Visit [facility] Heart and Vascular - [facility] [address] [place] [address] Nam Coto MD [address] [facility] [address] [place] [address] documented as of this encounter Visit Diagnoses Not on filedocumented in this encounter Additional Health Concerns Infection Onset Date Last Indicated Resolved Time R/O COVID-19 12/28/2019 12/28/2019 12/30/2019 5:45 AM CDT COVID-19 12/28/2019 12/28/2019 01/27/2020 1:16 AM CDT documented as of this encounter Care Teams Heat Regulator Relationship Specialty [place] [address] [place] [address] PCP - General 01/02/25 documented as of this encounter
--- OUTSIDE RECORDS SUMMARY | 2025-01-26 12:35 | XMS_ITS | Encounter Summary ---
Author Organization [facility] Address [address] [place] [address] Care Team Providers Care Mortician Supplies Sales Representative Name Role Phone Amarjit Mares Primary Care Provide r Encounter Details Date Type Department Care Team (Late st Contact Info) Description 09/23/2005 Outpatient Historical [facility] Alana Pérez MD [address] [address] Esophageal Reflux (Primary Dx) Social History Tobacco Use Types Packs/Day Years Used Date Smoking Tobacco: Never Assessed Comments Unknown Sex and Gender Information Value Date Recorded Sex Assigned at Not on file Legal Sex Female 4:29 AM SMOKE ROOM OPERATOR Gender Identity Not on file Sexual Orientation Not on file documented as of this encounter Plan of Treatment Upcoming Encounters Date Type Department Care Team (Late Contact Info) Description 04/18/2025 2:45 PM SMOKE ROOM OPERATOR Office Visit [facility] Orthopedic Surgery at the [facility] [address] [facility] [address] [place] [address] [place] [address] [place] [address] 05/04/2025 2:45 PM SMOKE ROOM OPERATOR Office Visit [facility] Oncology and Hematology - Paras [address] [place] [address] Nelson Cazares MD [address] [facility] [address] [place] [address] 06/13/2025 10:00 AM CDT Appointment [facility] Jazmin Couch [address] [place] [phone] [place] [address] [facility] [address] [place] [address] 06/13/2025 11:05 AM CDT Office Visit [facility] Breast Surgery Jazminannie Couch [address] [place] [address] [place] [address] [facility] [address] [place] [address] 07/13/2025 10:00 AM CDT Office Visit [facility] Endocrinology [address] [facility] [address] [place] [address] Shanice Llamas MD [address] [facility] [address] [place] [address] 12/14/2025 11:00 AM CDT Office Visit [facility] Heart and Vascular - [facility] [address] [facility] [address] [place] [address] Nam Coto MD [address] [facility] [address] [place] [address] documented as of this encounter Visit Diagnoses Diagnosis Esophageal reflux- Primary documented in this encounter Additional Health Concerns Infection Onset Date Last Indicated Resolved Time R/O COVID-19 12/28/2019 12/28/2019 12/30/2019 5:45 AM CDT COVID-19 12/28/2019 12/28/2019 01/27/2020 1:16 AM CDT documented as of this encounter Care Teams Mortician Supplies Sales Representative Relationship Specialty [place] [address] [facility] [address] [place] [address] PCP - General 01/02/25 documented as of this encounter
--- OUTSIDE RECORDS SUMMARY | 2025-01-26 12:35 | XMS_ITS | Encounter Summary ---
Author Organization [facility] Address [address] [place] [address] Care Team Providers Care Wind Site Manager Name Role Phone Amarjit Mares Primary Care Provide r Encounter Details Date Type Department Care Team (Late st Contact Info) Description 01/05/2006 Outpatient Historical [facility] Boy Kaufman MD [address] [place] [address] Other Specified Gastritis without Mention of Hemorrhage (Primary Dx) Social History Tobacco Use Types Packs/Day Years Used Date Smoking Tobacco: Never Assessed Comments Unknown Sex and Gender Information Value Date Recorded Sex Assigned at Not on file Legal Sex Female 4:29 AM SENIOR COGNOS DEVELOPER Gender Identity Not on file Sexual Orientation Not on file documented as of this encounter Plan of Treatment Upcoming Encounters Date Type Department Care Team (Late st Contact Info) Description 04/18/2025 2:45 PM SENIOR COGNOS DEVELOPER Office Visit [facility] Orthopedic Surgery at the [facility] [address] [facility] [address] [place] [address] [place] [address] [place] [address] 05/04/2025 2:45 PM SENIOR COGNOS DEVELOPER Office Visit [facility] Oncology and Hematology - Paras [address] [place] [address] Nelson Cazares MD [address] [facility] [address] [place] [address] 06/13/2025 10:00 AM CDT Appointment [facility] Jazmin Couch [address] [place] [phone] [place] [address] [place] [address] 06/13/2025 11:05 AM CDT Office Visit [facility] Breast Surgery Jazmin Couch [address] [place] [address] [place] [address] [place] [address] 07/13/2025 10:00 AM CDT Office Visit [facility] Endocrinology [address] [facility] [address] [place] [address] Shanice Llamas MD [address] [facility] [address] [place] [address] 12/14/2025 11:00 AM CDT Office Visit [facility] Heart and Vascular - [facility] [address] [place] [address] Nam Coto MD [address] [facility] [address] [place] [address] documented as of [...] documented as of this encounter Care Teams Wind Site Manager Relationship Specialty [place] [address] [facility] [address] [place] [address] PCP - General 01/02/25 documented as of this encounter
--- OUTSIDE RECORDS SUMMARY | 2025-01-26 12:35 | XMS_ITS | Encounter Summary ---
Author Organization [facility] Address [address] Ramosn: Epic Prelude ADT [place] [address] Care Team Providers Care Lap Hand Tool Name Role Phone Amarjit Mares Boy Primary Care Provide r Encounter Details Date Type Department Care Team (Latest Contact Info) Description 03/17/2007 Orders Only Yasemin Davis MD Social History Tobacco Use Types Packs/Day Years Used Date Smoking Tobacco: Never Assessed Comments Unknown Sex and Gender Information Value Date Recorded Sex Assigned at Not on file Legal Sex Female 4:29 AM CLOTH DYEING RANGE TENDER Gender Identity Not on file Sexual Orientation Not on file documented as of this encounter Progress Notes * Interface, Emiliano Stl Conv Transcriptions - 08/12/2007 12:32 PM CDT TIME:09:27 am PATIENT`S HOME PHONE: PATIENT`S WORK PHONE: PATIENT`S INSURANCE: [facility] WHO TOOK THE CALL: Katina Marie J GENERAL INFORMATION PATIENT STATUS: Established Patient. PCP: joslyn. ALTERNATIVE PHONE NUMBER: [phone] WHO CALLED: Patient called. PHARMACY NUMBER: [phone] PROBLEMS: Pt is calling in stating she [...] st Contact Info) Description 04/18/2025 2:45 PM CLOTH DYEING RANGE TENDER Office Visit [facility] Orthopedic Surgery at the [facility] [address] [facility] [address] [place] [address] [place] [address] [place] [address] 05/04/2025 2:45 PM CLOTH DYEING RANGE TENDER Office Visit [facility] Oncology and Hematology - Paras [address] [facility] [address] [place] [address] Nelson Cazares MD [address] [facility] [address] [place] [address] 06/13/2025 10:[address] [facility] Jazmin Couch [address] [place] [address] [place] [address] [place] [address] 06/13/2025 11:05 AM CDT Office Visit [facility] Breast Surgery Jazmin Couch [address] [facility] [address] [place] [address] [place] [address] [place] [address] 07/13/2025 10:00 AM CDT Office Visit [facility] Endocrinology [address] [place] [address] Shanice Llamas MD [address] [place] [address] 12/14/2025 11:00 AM CDT Office Visit [facility] - [facility] [address] [place] [address] Nam Coto MD [address] [facility] [address] [place] [address] documented as of this encounter Visit Diagnoses Not on filedocumented in this encounter Additional Health Concerns Infection Onset Date Last Indicated Resolved Time R/O COVID-19 12/28/2019 12/28/2019 12/30/2019 5:45 AM CDT COVID-19 12/28/2019 12/28/2019 01/27/2020 1:16 AM CDT documented as of this encounter Care Teams Lap Hand Tool Relationship Specialty [place] [address] [facility] [address] [place] [address] PCP - General 01/02/25 documented as of this encounter
--- OUTSIDE RECORDS SUMMARY | 2025-01-26 12:35 | XMS_ITS | Encounter Summary ---
Author Organization [facility] Address [address] [place] [address] Care Team Providers Care Photocomposition Keyboard Operator Name Role Phone Amarjit Mares Primary Care Provide r Encounter Details Date Type Department Care Team (Late st Contact Info) Description 2006 Outpatient Historical [facility] MRI DEPT Wang Alaniz MD [address] [facility] [place] [address] Unspecified Sinusitis (Chronic) (Primary Dx) Social History Tobacco Use Types Packs/Day Years Used Date Smoking Tobacco: Never Assessed Comments Unknown Sex and Gender Information Value Date Recorded Sex Assigned at Not on file Legal Sex Female 4:29 AM TECHNICAL OPERATOR Gender Identity Not on file Sexual Orientation Not on file documented as of this encounter Plan of Treatment Upcoming Encounters Date Type Department Care Team (Late Contact Info) Description 04/18/2025 2:45 PM TECHNICAL OPERATOR Office Visit [facility] Orthopedic Surgery at the [facility] [address] [facility] [address] [place] [address] [place] [address] [place] [address] 05/04/2025 2:45 PM TECHNICAL OPERATOR Office Visit [facility] Oncology and Hematology - Paras [address] [facility] [address] [place] [address] Nelson Cazares MD [address] [facility] [address] [place] [address] 06/13/2025 10:00 AM CDT Appointment [facility] Jazmin Couch [address] [place] [phone] [place] [address] [place] [address] 06/13/2025 11:05 AM CDT Office Visit [facility] Breast Surgery Jazminannie Couch [address] [place] [address] [place] [address] [place] [address] 07/13/2025 10:00 AM CDT Office Visit [facility] Endocrinology [address] [facility] [address] [place] [address] Shanice Llamas MD [address] [facility] [address] [place] [address] 12/14/2025 11:00 AM CDT Office Visit [facility] Heart and Vascular - [facility] [address] [place] [address] Nam Coto MD [address] [facility] [address] [place] [address] documented as of this encounter Visit Diagnoses Diagnosis Unspecified sinusitis (chronic)- Primary documented in this encounter Additional Health Concerns Infection Onset Date Last Indicated Resolved Time R/O COVID-19 12/28/2019 12/28/2019 12/30/2019 5:45 AM CDT COVID-19 12/28/2019 12/28/2019 01/27/2020 1:16 AM CDT documented as of this encounter Care Teams Photocomposition Keyboard Operator Relationship Specialty [place] [address] [facility] [address] [place] [address] PCP - General 01/02/25 documented as of this encounter
--- OUTSIDE RECORDS SUMMARY | 2025-01-26 12:35 | XMS_ITS | Encounter Summary ---
Author Organization [facility] Address [address] [place] [address] Care Team Providers Care Broaching Machine Set Up Operator Name Role Phone Amarjit Mares DO Primary Care Provide r Encounter Details Date Type Department Care Team (Late st Contact Info) Description 01/08/2007 Outpatient Historical [facility] Internal Medicine [place] [address] [facility] [address] [place] [address] Saturnino ms, MD Yasemin Social History Tobacco Use Types Packs/Day Years Used Date Smoking Tobacco: Never Assessed Comments Unknown Sex and Gender Information Value Date Recorded Sex Assigned at Not on file Legal Sex Female 4:29 AM HYDROELECTRIC MACHINERY MECHANIC HELPER Gender Identity Not on file Sexual [...] st Contact Info) Description 04/18/2025 2:45 PM HYDROELECTRIC MACHINERY MECHANIC HELPER Office Visit [facility] Orthopedic Surgery at the [facility] [address] [place] [address] [place] [address] [place] [address] 05/04/2025 2:45 PM HYDROELECTRIC MACHINERY MECHANIC HELPER Office Visit [facility] Oncology and Hematology - Paras [address] [place] [address] Nelson Cazares MD [address] [facility] [address] [place] [address] 06/13/2025 10:00 AM CDT Appointment [facility] [place] [address] [address] [place] [address] [place] [address] [place] [address] 06/13/2025 11:05 AM CDT Office Visit [facility] Breast Surgery [place] [address] [facility] [address] [place] [address] [place] [address] [place] [address] 07/13/2025 10:00 AM CDT Office Visit [facility] Endocrinology [address] [place] [address] Shanice Llamas MD [address] [place] [address] 12/14/2025 11:00 AM CDT Office Visit [facility] Heart and Vascular - [place] [address] [place] [address] Nam Coto MD [address] [facility] [address] [place] [address] documented as of this encounter Visit Diagnoses Not on filedocumented in this encounter Additional Health Concerns Infection Onset Date Last Indicated Resolved Time R/O COVID-19 12/28/2019 12/28/2019 12/30/2019 5:45 AM CDT COVID-19 12/28/2019 12/28/2019 01/27/2020 1:16 AM CDT documented as of this encounter Care Teams Broaching Machine Set Up Operator Relationship Specialty [place] [address] [facility] [address] [place] [address] PCP - General 01/02/25 documented as of this encounter
--- OUTSIDE RECORDS SUMMARY | 2025-01-26 12:35 | XMS_ITS | Encounter Summary ---
Author Organization [facility] Address [address] [place] [address] Care Team Providers Care Designer Name Role Phone Amarjit Mares Primary Care Provide r Encounter Details Date Type Department Care Team (Late Contact Info) Description 03/08/2002 Outpatient Historical [facility] Jeremías Farias MD NO ADDRESS ON FILE Social History Tobacco Use Types Packs/Day Years Used Date Smoking Tobacco: Never Assessed Comments Unknown Sex and Gender Information Value Date Recorded Sex Assigned at Not on file Legal Sex Female 4:29 AM PONY TRIMMER Gender Identity Not on file Sexual Orientation Not on file documented as of this encounter Plan of Treatment Upcoming Encounters Date Type Department Care Team (Late Contact Info) Description 04/18/2025 2:45 PM PONY TRIMMER Office Visit [facility] Orthopedic Surgery at the [facility] [address] [facility] [address] [place] [address] [place] [address] [place] [address] 05/04/2025 2:45 PM PONY TRIMMER Office Visit [facility] Oncology and Hematology - Paras [address] [place] [address] Nelson Cazares MD [address] [facility] [address] [place] [address] 06/13/2025 10:[address] [facility] Jazmin Cocuh [address] [facility] [place] [phone] [place] [address] [place] [address] 06/13/2025 11:05 AM CDT Office Visit [facility] Breast Surgery Jazmin Couch [address] [place] [address] [place] [address] [place] [address] 07/13/2025 10:00 AM CDT Office Visit [facility] Endocrinology [address] [place] [address] Shanice Llamas MD [address] [place] [address] 12/14/2025 11:00 AM CDT Office Visit [facility] Heart and Vascular - [facility] [address] [place] [address] Nam Coto MD [address] [facility] [address] [place] [address] documented as of this encounter Visit Diagnoses Not on filedocumented in this encounter Additional Health Concerns Infection Onset Date Last Indicated Resolved Time R/O COVID-19 12/28/2019 12/28/2019 12/30/2019 5:45 AM CDT COVID-19 12/28/2019 12/28/2019 01/27/2020 1:16 AM CDT documented as of this encounter Care Teams Designer Relationship Specialty [place] [address] [place] [address] PCP - General 01/02/25 documented as of this encounter
--- OUTSIDE RECORDS SUMMARY | 2025-01-26 12:35 | XMS_ITS | Encounter Summary ---
Author Organization [facility] Address [address] [place] [address] Care Team Providers Care Auto Transport Driver Name Role Phone Amarjit Mares Primary Care Provide r Encounter Details Date Type Department Care Team (Late st Contact Info) Description 07/27/2007 Outpatient Historical [facility] Jose Luis Malcolm MD [address] [place] [address] Social History Tobacco Use Types Packs/Day Years Used Date Smoking Tobacco: Never Assessed Comments Unknown Sex and Gender Information Value Date Recorded Sex Assigned at Not on file Legal Sex Female 4:29 AM DYNAMOMETER REPAIRER Gender Identity Not on file Sexual Orientation Not on file documented as of this encounter Plan of Treatment Upcoming Encounters Date Type Department Care Team (Late st Contact Info) Description 04/18/2025 2:45 PM DYNAMOMETER REPAIRER Office Visit [facility] Orthopedic Surgery at the [facility] [address] [place] [address] [place] [address] [place] [address] 05/04/2025 2:45 PM DYNAMOMETER REPAIRER Office Visit [facility] Oncology and Hematology - Paras [address] [place] [address] Nelson Cazares MD [address] [place] [address] 06/13/2025 10:00 AM CDT Appointment [facility] Jazmin Couch [address] [place] [address] [place] [address] [place] [address] 06/13/2025 11:05 AM CDT Office Visit [facility] Breast Surgery Jazmin Couch [address] [place] [address] [place] [address] [place] [address] 07/13/2025 10:00 AM CDT Office Visit [facility] Endocrinology [address] [place] [address] Shanice Llamas MD [address] [place] [address] 12/14/2025 11:00 AM CDT Office Visit [facility] Heart and Vascular - [facility] [address] [place] [address] Nam Coto MD [address] [address] [place] [address] documented as of this [...] CDT) COMMENT 3, GLU POC Pre Meal [facility] GLUCOSE POC 155(H) 65 - 99 mg/dL [facility] COMMENT, GLU POC Notified RN [facility] Venous blood specimen (specimen) 08/18/2007 7:13 AM CDT 08/18/2007 7:13 AM CDT us Jose Luis Malcolm MD POINT OF CARE TESTING Final R [facility] Performing Organization Address City/[facility] Co de Phone Number [facility] CLIA# [id number] [address] [facility] [place] [place] [address] * (ABNORMAL) POC GLUCOSE (08/17/2007 9:07 PM CDT) GLUCOSE POC 226(H) 65 - 99 mg/dL [facility] COMMENT, GLU POC Notified RN [facility] Venous blood specimen (specimen) 08/17/2007 9:07 PM CDT 08/17/2007 9:07 PM CDT Jose Luis Malcolm MD POINT OF CARE TESTING Final R esult [facility] CLIA# [id number] [address] [place] [address] * (ABNORMAL) POC GLUCOSE (08/17/2007 4:52 PM CDT) GLUCOSE POC 201(H) 65 - 99 mg/dL [facility] COMMENT, GLU POC Notified RN [facility] Venous blood specimen (specimen) 08/17/2007 4:52 PM CDT 08/17/2007 4:52 PM CDT Jose Luis Malcolm MD POINT OF CARE TESTING Final R esult Performing Organization Address [facility] Co de Phone Number [facility] CLIA# [id number] [address] [place] [address] * (ABNORMAL) POC GLUCOSE (08/17/2007 2:44 PM CDT) GLUCOSE POC 203(H) 65 - 99 mg/dL [facility] Venous blood specimen (specimen) 08/17/2007 2:44 PM CDT 08/17/2007 2:44 PM CDT Jose Luis Malcolm MD POINT OF CARE TESTING Final R prachi Performing Organization Address [facility] Co de Phone Number [facility] CLIA# [id number] [address] [place] [address] * (ABNORMAL) POC GLUCOSE (08/17/2007 1:48 PM CDT) GLUCOSE POC 200(H) 65 - 99 mg/dL [facility] Venous blood specimen (specimen) 08/17/2007 1:48 PM CDT 08/17/2007 1:48 PM CDT Jose Luis Malcolm MD POINT OF CARE TESTING Final R esult Performing Organization Address City/[facility]/ZIP Co de Phone Number [facility] CLIA# [id number] [address] [place] [address] * (ABNORMAL) POC GLUCOSE (08/17/2007 9:09 AM CDT) GLUCOSE POC 186(H) 65 - 99 mg/dL [facility] Venous blood specimen (specimen) 08/17/2007 9:09 AM CDT 08/17/2007 9:09 AM CDT Jose Luis Malcolm MD POINT OF CARE TESTING Final R esult Performing Organization Address City/[facility]/ZIP Co de Phone Number [facility] CLIA# [id number] [address] [place] [address] * (ABNORMAL) HEMOGLOBIN AND HEMATOCRIT (08/10/2007 9:05 AM CDT) HEMOGLOBIN 15.7(H) 11.8 - 14.8 g/dL [facility] HEMATOCRIT 48.3(H) 35.5 - 44.0 % [facility] Blood specimen (specimen) 08/10/2007 9:05 AM CDT 08/10/2007 10:05 AM CDT us Jose Luis Malcolm MD HEMATOLOGY ORDERABLES Final R esult [facility] CLIA# [id number] [address] [place] [address] * (ABNORMAL) BASIC METABOLIC PANEL (08/10/2007 9:05 AM CDT) GLUCOSE 139(H) 65 - 99 mg/dL [facility] BUN 9 6 - 20 mg/dL [facility] CHLORIDE 99 96 - 108 mmol/L [facility] CREATININE 0.74 0.51 - 0.95 mg/dL [facility] SODIUM 136 135 - 145 mmol/L [facility] CALCIUM 9.3 8.4 - 10.2 mg/dL [facility] CO2 24 22 - 30 mmol/L [facility] POTASSIUM 4.4 3.5 - 4.9 mmol/L [facility] GFR, >60 >=60 mL/min/1. 7 sq meter [facility] GFR >60 >=60 mL/min/1. 7 sq meter [facility] Comment: Estimated GFR rate interpretative information for both Americans and non- Americans is available on the [facility] Intranet at: [email or web address] Select: Lab Policies and Procedures Select: Reference Ranges - GFR Blood specimen (specimen) 08/10/2007 9:05 AM CDT 08/10/2007 10:05 AM CDT Jose Luis Malcolm MD CHEMISTRY ORDERABLES Edited Performing Organization Address City/[facility]/ZIP Co de Phone Number [facility] CLIA# [id number] [address] [place] [address] * TYPE AND SCREEN (08/10/2007 8:25 AM CDT) HISTORY CHECK No Historical ABO/Rh [facility] SPECIMEN LIFE 3 days from OR date [facility] ABO/RH TYPE A Positive [facility] ANTIBODY SCREEN Negative [facility] Blood specimen (specimen) 08/10/2007 8:25 AM CDT Jose Luis Malcolm MD BLOOD BANK ORDERABLES Edited [facility] CLIA# [id number] [address] [place] [address] documented in this encounter Visit Diagnoses Not on filedocumented in this encounter Additional Health Concerns Infection Onset Date Last Indicated Resolved Time R/O COVID-19 12/28/2019 12/28/2019 12/30/2019 5:45 AM CDT COVID-19 12/28/2019 12/28/2019 01/27/2020 1:16 AM CDT documented as of this encounter Care Teams Auto Transport Driver Relationship Specialty [place] [address] [address] PCP - General 01/02/25 documented as of this encounter
--- OUTSIDE RECORDS SUMMARY | 2025-01-26 12:35 | XMS_ITS | Encounter Summary ---
Author Organization [facility] Address [address] Chambers: Epic Prelude ADT [place] [address] Care Team Providers Care Exhibit Specialist Name Role Phone Amarjit Mares Boy Primary Care Provide r Encounter Details Date Type Department Care Team (Latest Contact Info) Description 05/21/2007 Orders Only Yasemin Davis MD Social History Tobacco Use Types Packs/Day Years Used Date Smoking Tobacco: Never Assessed Comments Unknown Sex and Gender Information Value Date Recorded Sex Assigned at Not on file Legal Sex Female 4:29 AM SALES AND DISTRIBUTION CLERK Gender Identity Not on file Sexual Orientation Not on file documented as of this encounter Progress Notes * Interface, Emiliano Stl Conv Transcriptions - 08/11/2007 2:24 PM CDT TIME:09:02 am PATIENT`S HOME PHONE: PATIENT`S WORK PHONE: PATIENT`S INSURANCE: [employer] [facility] WHO TOOK THE CALL: Rolanda Gong N GENERAL INFORMATION PCP: CORTNEY. ALTERNATIVE PHONE NUMBER: [phone] WHO CALLED: Patient called. PHARMACY NUMBER: [phone] SECTION 1: REQUESTED ACTION duane 05/21/07 at 09:03 am: Patient called with c/o fever, bloody when she blows her nose, dry cough. This started one week ago. She has taken Tylenol Cold with no relief. She wouldlike to get something called in to her pharmacy. DOCTOR`S RESPONSE: saenpp 05/21/07 at 09:05 am MEDICATIONS: Call in to Pharmacy ZITHROMAX Z-YKLE ORAL TABLET 250 MG, 2 tabs first [...] st Contact Info) Description 04/18/2025 2:45 PM SALES AND DISTRIBUTION CLERK Office Visit [facility] Orthopedic Surgery at the [facility] Medicine [address] [place] [address] [place] [address] [place] [address] 05/04/2025 2:45 PM SALES AND DISTRIBUTION CLERK Office Visit [facility] Oncology and Hematology - Paras [address] [place] [address] Nelson Cazares MD [address] [facility] [address] [place] [address] 06/13/2025 10:00 AM CDT Appointment [facility] Jazmin [address] [place] [address] [place] [address] [place] [address] 06/13/2025 11:05 AM CDT Office Visit [facility] Breast Surgery Jazmin Couch [address] [place] [address] [place] [address] [place] [address] 07/13/2025 10:00 AM CDT Office Visit [facility] Endocrinology [address] [place] [address] Shanice Llamas MD [address] [place] [address] 12/14/2025 11:00 AM CDT Office Visit [facility] Heart and Vascular - [facility] [address] [place] [address] Nam Coto MD [address] [facility] [address] [place] [address] documented as of this encounter Visit Diagnoses Not on filedocumented in this encounter Additional Health Concerns Infection Onset Date Last Indicated Resolved Time R/O COVID-19 12/28/2019 12/28/2019 12/30/2019 5:45 AM CDT COVID-19 12/28/2019 12/28/2019 01/27/2020 1:16 AM CDT documented as of this encounter Care Teams Exhibit Specialist Relationship Specialty [place] [address] [facility] [address] [place] [address] PCP - General 01/02/25 documented as of this encounter
--- OUTSIDE RECORDS SUMMARY | 2025-01-26 12:35 | XMS_ITS | Encounter Summary ---
Author Organization [facility] Address [address] Ramosn: Epic Prelude ADT [place] [address] Care Team Providers Care Graphic Artist Name Role Phone Amarjit Mares Boy Primary Care Provide r Encounter Details Date Type Department Care Team (Latest Contact Info) Description 03/08/2007 Orders Only Yasemin Davis MD Social History Tobacco Use Types Packs/Day Years Used Date Smoking Tobacco: Never Assessed Comments Unknown Sex and Gender Information Value Date Recorded Sex Assigned at Not on file Legal Sex Female 4:29 AM COUNSELLING PSYCHOLOGIST Gender Identity Not on file Sexual Orientation Not on file documented as of this encounter Progress Notes * Interface, Emiliano Stl Conv Transcriptions - 08/12/2007 10:41 AM CDT TIME:09:47 am PATIENT`S HOME PHONE: PATIENT`S WORK PHONE: PATIENT`S INSURANCE: [facility] WHO TOOK THE CALL: Katina Marie J GENERAL INFORMATION PATIENT STATUS: Established Patient. LAST VISIT: PCP: joslyn. ALTERNATIVE PHONE NUMBER: [phone] WHO CALLED: Patient called. PHARMACY NUMBER: [phone] PROBLEMS: Pt is calling in with head congestion, cough that is not productive, green nasal drainage, and low grade fever.She states that this has been going on for about 5 day. she has been using tylenol sinus with little relief. She would like something called in. SECTION 1: DOCTOR`S RESPONSE: lenop 03/08/07 at 09:58 am can she come in to see me? SECTION 2: FINAL ACTION: niurka 03/08/07 at 10:26 am Spoke with patient 03/08/07 at 10:26 am. appt schd Electronically Signed by: Princess Arias on Thursday, March 08, 2007 * Emiliano Alvarenga [facility] Conv Transcriptions - 08/12/2007 10:36 AM CDT [...] st Contact Info) Description 04/18/2025 2:45 PM COUNSELLING PSYCHOLOGIST Office Visit [facility] Orthopedic Surgery at the [facility] [address] [place] [address] [place] [address] [place] [address] 05/04/2025 2:45 PM COUNSELLING PSYCHOLOGIST Office Visit [facility] Oncology and Hematology - Paras [address] [place] [address] [place] [address] Nelson Cazares MD [address] [facility] [address] [place] [address] 06/13/2025 10:00 AM CDT Appointment [facility] [address] [address] [place] [address] [place] [address] [place] [address] 06/13/2025 11:05 AM CDT Office Visit [facility] [address] [facility] [place] [address] [place] [address] [place] [address] 07/13/2025 10:00 AM CDT Office Visit [facility] Endocrinology [address] [place] [address] Shanice Llamas MD [address] [place] [address] 12/14/2025 11:00 AM CDT Office Visit [facility] Heart and Vascular - [facility] [address] [place] [address] Nam Coto MD [address] [facility] [address] [place] [address] documented as of this encounter Visit Diagnoses Not on filedocumented in this encounter Additional Health Concerns Infection Onset Date Last Indicated Resolved Time R/O COVID-19 12/28/2019 12/28/2019 12/30/2019 5:45 AM CDT COVID-19 12/28/2019 12/28/2019 01/27/2020 1:16 AM CDT documented as of this encounter Care Teams Graphic Artist Relationship Specialty [place] [address] [address] [place] [address] PCP - General 01/02/25 documented as of this encounter
--- OUTSIDE RECORDS SUMMARY | 2025-01-26 12:35 | XMS_ITS | Encounter Summary ---
Author Organization [facility] Address [address] [place] [address] Care Team Providers Care Data Storage Specialist Name Role Phone Amarjit Mares Primary Care Provide r Encounter Details Date Type Department Care Team (Late Contact Info) Description 03/13/2006 Outpatient [address] [facility] INTERNISTS Jeremías Farias MD NO ADDRESS ON FILE Social History Tobacco Use Types Packs/Day Years Used Date Smoking Tobacco: Never Assessed Comments Unknown Sex and Gender Information Value Date Recorded Sex Assigned at Not on file Legal Sex Female 4:29 AM GRAIN ELEVATOR MOTOR STARTER Gender Identity Not on file Sexual Orientation Not on file documented as of this encounter Plan of Treatment Upcoming Encounters Date Type Department Care Team (Late Contact Info) Description 04/18/2025 2:45 PM GRAIN ELEVATOR MOTOR STARTER Office Visit [facility] Orthopedic Surgery at the [facility] [address] [place] [address] [place] [address] [place] [address] 05/04/2025 2:45 PM GRAIN ELEVATOR MOTOR STARTER Office Visit [facility] Oncology and Hematology - Paras [address] [place] [address] Nelson Cazares MD [address] [facility] [address] [place] [address] 06/13/2025 10:00 AM CDT Appointment [facility] [address] [place] [address] [place] [address] [place] [address] 06/13/2025 11:05 AM CDT Office Visit [facility] Breast Surgery Jazmin Couch [address] [place] [address] [place] [address] [place] [address] 07/13/2025 10:00 AM CDT Office Visit [facility] Endocrinology [address] [place] [address] Shanice Llamas MD [address] [place] [address] 12/14/2025 11:00 AM CDT Office Visit [facility] Heart and Vascular - [facility] [address] [place] [address] Nam Coto MD [address] [place] [address] documented as of this encounter Visit Diagnoses Not on filedocumented in this encounter Additional Health Concerns Infection Onset Date Last Indicated Resolved Time R/O COVID-19 12/28/2019 12/28/2019 12/30/2019 5:45 AM CDT COVID-19 12/28/2019 12/28/2019 01/27/2020 1:16 AM CDT documented as of this encounter Care Teams Data Storage Specialist Relationship Specialty [place] [address] [place] [address] PCP - General 01/02/25 documented as of this encounter
--- OUTSIDE RECORDS SUMMARY | 2025-01-26 12:35 | XMS_ITS | Encounter Summary ---
Author Organization [facility] Address [address] [place] [address] Care Team Providers Care Coke Crane Operator Name Role Phone Vishnu Amarjit Brunson Primary Care Provide r Encounter Details Date Type Department Care Team (Late st Contact Info) Description 03/08/2007 Outpatient Historical [facility] Internal Medicine Harmony Denzel [address] [place] [address] Saturnino ms, MD Yasemin Social History Tobacco Use Types Packs/Day Years Used Date Smoking Tobacco: Never Assessed Comments Unknown Sex and Gender Information Value Date Recorded Sex Assigned at Not on file Legal Sex Female 4:29 AM COSMETOLOGIST APPRENTICE Gender Identity Not on file Sexual Orientation Not on file documented as of this encounter Plan of Treatment Upcoming Encounters Date Type Department Care Team (Late st Contact Info) Description 04/18/2025 2:45 PM COSMETOLOGIST APPRENTICE Office Visit [facility] Orthopedic Surgery at the [facility] [address] [place] [address] [place] [address] [place] [address] 05/04/2025 2:45 PM COSMETOLOGIST APPRENTICE Office Visit [facility] Oncology and Hematology - Paras [address] [place] [address] [place] [address] [employer] [address] [place] [address] 06/13/2025 10:00 AM CDT Appointment [facility] Jaz[address] [place] [address] [place] [address] [place] [address] 06/13/2025 11:05 AM CDT Office Visit [facility] [address] [place] [address] [place] [address] [place] [address] 07/13/2025 10:00 AM CDT Office Visit [facility] Endocrinology [address] [facility] [address] [place] [address] Shanice Llamas MD [address] [facility] [address] [address] [place] [address] 12/14/2025 11:00 AM CDT Office Visit [facility] Heart and Vascular - [facility] [address] [place] [address] Nam Coto MD [address] [facility] [address] [place] [address] documented as of this encounter Visit Diagnoses Not on filedocumented in this encounter Additional Health Concerns Infection Onset Date Last Indicated Resolved Time R/O COVID-19 12/28/2019 12/28/2019 12/30/2019 5:45 AM CDT COVID-19 12/28/2019 12/28/2019 01/27/2020 1:16 AM CDT documented as of this encounter Care Teams Coke Crane Operator Relationship Specialty [place] [address] [address] [place] [address] PCP - General 01/02/25 documented as of this encounter
--- OUTSIDE RECORDS SUMMARY | 2025-01-26 12:35 | XMS_ITS | Encounter Summary ---
Author Organization [facility] Address [address] [place] [address] Care Team Providers Care Clutch Mechanic Name Role Phone VishnuAmarjit dillon Primary Care Provide r Encounter Details Date Type Department Care Team (Late st Contact Info) Description 06/21/2007 Outpatient Historical [facility] Jacqueline Devlin MD [address] [place] [address] Nausea Alone Social History Tobacco Use Types Packs/Day Years Used Date Smoking Tobacco: Never Assessed Comments Unknown Sex and Gender Information Value Date Recorded Sex Assigned at Not on file Legal Sex Female 4:29 AM UNIFORMS SALES REPRESENTATIVE Gender Identity Not on file Sexual Orientation Not on file documented as of this encounter Plan of Treatment Upcoming Encounters Date Type Department Care Team (Late st Contact Info) Description 04/18/2025 2:45 PM UNIFORMS SALES REPRESENTATIVE Office Visit [facility] Orthopedic Surgery at the [facility] Medicine [address] [facility] [place] [address] [place] [address] [place] [address] 05/04/2025 2:45 PM UNIFORMS SALES REPRESENTATIVE Office Visit [facility] Oncology and Hematology - Paras [address] [place] [address] Nelson Cazares MD [address] [facility] [address] [place] [address] 06/13/2025 10:00 AM CDT Appointment [facility] [address] [place] [address] [place] [address] [facility] [address] [place] [address] 06/13/2025 11:05 AM CDT Office Visit [facility] Breast Surgery [place] [address] [place] [address] [place] [address] [facility] [address] [place] [address] 07/13/2025 10:00 AM CDT Office Visit [facility] Endocrinology [address] [place] [address] Shanice Llamas MD [address] [place] [address] 12/14/2025 11:00 AM CDT Office Visit [facility] Heart and Vascular - [facility] [address] [place] [address] Nam Coto MD [address] [facility] [address] [place] [address] documented as of this encounter Procedures Procedure Name Priority Date/Time Associated Diagnosis Comments NM GASTRIC EMPTYING Timed Study 06/21/2007 9:00 AM CDT documented in this encounter Results * NM GASTRIC EMPTYING (06/21/2007 9:00 AM CDT) Anatomical Region Laterality Modality Abdomen Other 06/21/2007 9:00 AM CDT Narrative 06/21/2007 2:00 PM CDT [facility] [address] [facility] [facility] [address] Admit Date: 06/21/2007 JOSEPH WILLIAM Zabala Sex: F Admit Prov: JACQUELINE DEVLIN Date: 1955 Primary Care Prov: BRITTANY GONZALEZ; CMRN: [id number] ERICK MAYER SSN: [id number] Room: [facility] Ordering Prov: N/A Accession Number: [id number] Interpretation Gastric emptying, solid meal History: 51-year-old [...] 14:00 Procedure Note Provider, Historical - 06/21/2007 [facility] [address] [place], [place] [address] Admit Date: 06/21/2007 WILLIAM IZAGUIRRE Sex: F Admit Prov: JACQUELINE DEVLIN Date: 1955 Primary Care Prov: BRITTANY GONZALEZ; CMRN: [id number] ERICK MAYER SSN: [id number] Room: [facility] Ordering Prov: N/A Interpretation [...] documented as of this encounter Care Teams Clutch Mechanic Relationship Specialty [place] [address] [phone] PCP - General 01/02/25 documented as of this encounter
--- OUTSIDE RECORDS SUMMARY | 2025-01-26 12:35 | XMS_ITS | Encounter Summary ---
Author Organization [facility] Address [address] [place] [address] Care Team Providers Care Simulation Software Engineer Name Role Phone Amarjit Mares Primary Care Provide r Encounter Details Date Type Department Care Team (Latest Contact Info) Description 03/08/[address] [facility] Jeremías Torres MD NO ADDRESS ON FILE ACUTE URI NOS (Primary Dx) Social History Tobacco Use Types Packs/Day Years Used Date Smoking Tobacco: Never Assessed Comments Unknown Sex and Gender Information Value Date Recorded Sex Assigned at Not on file Legal Sex Female 4:29 AM ROLL GRINDER Gender Identity Not on file Sexual Orientation Not on file documented as of this encounter Plan of Treatment Upcoming Encounters Date Type Department Care Team (Late st Contact Info) Description 04/18/2025 2:45 PM ROLL GRINDER Office Visit [facility] Orthopedic Surgery at the [facility] [address] [facility] [address] [place] [address] [place] [address] [place] [address] 05/04/2025 2:45 PM ROLL GRINDER Office Visit [facility] Oncology and Hematology - Paras [address] [place] [address] Nelson Cazares MD [address] [facility] [address] [place] [address] 06/13/2025 10:00 AM CDT Appointment [facility] [address] [place] [address] [place] [address] [place] [address] 06/13/2025 11:05 AM CDT Office Visit [facility] Breast [facility] [place] [address] [place] [address] [place] [address] [place] [address] 07/13/2025 10:00 AM CDT Office Visit [facility] Endocrinology [address] [place] [address] Shanice Llamas MD [address] [place] [address] 12/14/2025 11:00 AM CDT Office Visit [facility] Heart and Vascular - [facility] [address] [place] [address] Nam Coto MD [address] [facility] [address] [place] [address] documented as of this encounter Visit Diagnoses Diagnosis Acute upper respiratory infections of unspecified site- Primary documented in this encounter Additional Health Concerns Infection Onset Date Last Indicated Resolved Time R/O COVID-19 12/28/2019 12/28/2019 12/30/2019 5:45 AM CDT COVID-19 12/28/2019 12/28/2019 01/27/2020 1:16 AM CDT documented as of this encounter Care Teams Simulation Software Engineer Relationship Specialty [place] [address] [facility] [address] [place] [address] PCP - General 01/02/25 documented as of this encounter
--- OUTSIDE RECORDS SUMMARY | 2025-01-26 12:36 | XMS_ITS | Encounter Summary ---
Author Organization [facility] Address [address] [place] [address] Care Team Providers Care Printed Circuit Board Panels Plater Name Role Phone Amarjit Mares Primary Care Provide r Encounter Details Date Type Department Care Team (Late st Contact Info) Description 06/20/2008 Outpatient Historical [facility] Jacqueline Devlin MD [address] [place] [address] Esophageal Reflux Social History Tobacco Use Types Packs/Day Years Used Date Smoking Tobacco: Never Alcohol Use Standard Drinks/Week Comments Yes 0 (1 standard drink = 0.6 oz pur e alcohol) rare Comments No Sex and Gender Information Value Date Recorded Sex Assigned at Not on file Legal Sex Female 4:29 AM WEIGH MACHINE OPERATOR Gender Identity Not on file Sexual Orientation Not on file documented as of this encounter Plan of Treatment Upcoming Encounters Date Type Department Care Team (Late st Contact Info) Description 04/18/2025 2:45 PM WEIGH MACHINE OPERATOR Office Visit [facility] Orthopedic Surgery at the [facility] [address] [place] [address] [place] [address] [place] [address] 05/04/2025 2:45 PM WEIGH MACHINE OPERATOR Office Visit [facility]3] Oncology and Hematology - Paras [address] [place] [address] Nelson Cazares MD [address] [facility] [address] [place] [address] 06/13/2025 10:00 AM CDT Appointment [facility] [address] [place] [address] [place] [address] [address] [place] [address] 06/13/2025 11:05 AM CDT Office Visit [facility] Breast Surgery [place]hoa [address] [place] [address] [place] [address] [address] [place] [address] 07/13/2025 10:00 AM CDT Office Visit [facility]3] Endocrinology [address] [facility] [address] [place] [address] Shanice Llamas MD [address] [facility] [address] [place] [address] 12/14/2025 11:00 AM CDT Office Visit [facility]3] Heart and Vascular - [facility] [address] [place] [address] Nam Coto MD [address] [facility] [address] [place] [address] documented as of this encounter Procedures Procedure Name Priority Date/Time Associated Diagnosis Comments PATHOLOGY Routine 06/20/2008 12:14 PM CDT POC GLUCOSE Routine 06/20/2008 10:43 AM CDT documented in this encounter Results * PATHOLOGY (06/20/2008 12:14 PM CDT) FINAL REPORT [facility] [address] [place], [place] [address] Patient: WILLIAM IZAGUIRRE : 1955 Procedure Date: 06/20/2008 Accession Date: 06/20/2008 Case No: [id number] Ordering Dr: JACQUELINE EDVLIN Case types AW, BW, FW, NW and SH are performed by [facility], [place], [place] SURGICAL PATHOLOGY & NON-GYNECOLOGIC CYTOPATHOLOGY REPORT [...] 03:53 pm Microscopic: The slides are labeled [id number]. The biopsy consists of squamous mucosa in [...] active gastritis. No intestinal metaplasia is seen. [facility] 06.21.2008 11:30 am Staging Form: No. ELECTRONIC [...] Result INTERFACE SYSTEM Refer to clinic/hospital department [facility] CLIA# [id number] [address] [place] [address] documented in this encounter Visit Diagnoses Diagnosis Esophageal reflux documented in this encounter Additional Health Concerns Infection Onset Date Last Indicated Resolved Time R/O COVID-19 12/28/2019 12/28/2019 12/30/2019 5:45 AM CDT COVID-19 12/28/2019 12/28/2019 01/27/2020 1:16 AM CDT documented as of this encounter Care Teams Printed Circuit Board Panels Plater Relationship Specialty [place] [address] [facility] [address] [place] [address] PCP - General 01/02/25 documented as of this encounter
--- OUTSIDE RECORDS SUMMARY | 2025-01-26 12:36 | XMS_ITS | Encounter Summary ---
Author Organization [facility] Address [address] [place] [address] Care Team Providers Care Embedded Software Programmer Name Role Phone Amarjit Mares Primary Care [...] on file Legal Sex Female 4:29 AM ENCEPHALOGRAPHER Gender Identity Not on file Sexual Orientation Not on file documented as of this encounter Plan of Treatment Upcoming Encounters Date Type Department Care Team (Late st Contact Info) Description 04/18/2025 2:45 PM ENCEPHALOGRAPHER Office Visit [facility] Orthopedic Surgery at the [facility] Medicine [address] [facility] [address] [place] [address] [place] [address] [place] [address] 05/04/2025 2:45 PM ENCEPHALOGRAPHER Office Visit [facility] Oncology and Hematology - Paras [address] [place] [address] Nelson Cazares MD [address] [facility] [address] [place] [address] 06/13/2025 10:00 AM CDT Appointment [facility] [address] [place] [address] [place] [address] [place] [address] 06/13/2025 11:05 AM CDT Office Visit [facility] Breast Surgery Jazmin Couch [address] [place] [address] [place] [address] [place] [address] 07/13/2025 10:00 AM CDT Office Visit [facility] Endocrinology [address] [place] [address] Shanice Llamas MD [address] [facility] [address] [facility] [address] [place] [address] 12/14/2025 11:00 AM CDT Office Visit [facility] Heart and Vascular - [facility] [address] [place] [address] Nam Coto MD [address] [facility] [address] [place] [address] documented as of this encounter Procedures Procedure Name Priority Date/Time Associated Diagnosis Comments US ABDOMEN LIMITED Timed Study 04/06/2008 7: 23 AM ENCEPHALOGRAPHER documented in this encounter Results * US ABDOMEN LIMITED (04/06/2008 7:23 AM ENCEPHALOGRAPHER) Anatomical Region Laterality Modality Abdomen Other 04/06/2008 7:23 AM ENCEPHALOGRAPHER Narrative 04/06/2008 9:07 AM ENCEPHALOGRAPHER [facility] [address] [facility] [place] [address] Admit Date: 04/06/2008 WILLIAM IZAGUIRRE Sex: F Admit Prov: BRITTANY GONZALEZ Date: 1955 Primary Care Prov: BRITTANY GONZALEZ; CMRN: [id number] ERICK MAYER SSN: [id number] Room: [facility] Ordering Prov: N/A Accession Number: [id number] Interpretation ULTRASOUND OF THE ABDOMEN, LIMITED, 04/06/2008 [...] DKT Procedure Note Provider, Historical - 04/06/2008 [facility] [address] [place], [place] [address] Admit Date: 04/06/2008 WILLIAM IZAGUIRRE Sex: F Admit Prov: BRITTANY GONZALEZ Date: 1955 Primary Care Prov: BRITTANY GONZALEZ; CMRN: [id number] ERICK MAYER SSN: [id number] Room: [facility] Ordering Prov: N/A Interpretation [...] documented as of this encounter Care Teams Embedded Software Programmer Relationship Specialty [place] [address] [facility] [address] [place] [address] PCP - General 01/02/25 documented as of this encounter
--- OUTSIDE RECORDS SUMMARY | 2025-01-26 12:36 | XMS_ITS | Encounter Summary ---
Author Organization [facility] Address [address] [place] [address] Care Team Providers Care Music Industry Intern Name Role Phone Amarjit Mares Primary Care [...] on file Legal Sex Female 4:29 AM CONTENT CURATOR Gender Identity Not on file Sexual Orientation Not on file documented as of this encounter Plan of Treatment Upcoming Encounters Date Type Department Care Team (Late st Contact Info) Description 04/18/2025 2:45 PM CONTENT CURATOR Office Visit [facility]opedic Surgery at the [facility] Medicine [address] [place] [address] [place] [address] [place] [address] 05/04/2025 2:45 PM CONTENT CURATOR Office Visit [facility] Oncology and Hematology - Paras [address] [place] [address] Nelson Cazares MD [address] [facility] [address] [place] [address] 06/13/2025 10:[address] [facility] [place] [address] [place] [address] [place] [address] [place] [address] 06/13/2025 11:05 AM CDT Office [facility] Breast Surgery [place] [address] [facility] [place] [address] [place] [address] [facility] [address] [place] [address] 07/13/2025 10:00 AM CDT Office Visit [facility] Endocrinology [address] [facility] [address] [place] [address] Shanice Llamas MD [address] [facility] [address] [place] [address] 12/14/2025 11:00 AM CDT Office Visit [facility] Heart and Vascular - [facility] [address] [facility] [address] [place] [address] Nam Coto MD [address] [facility] [address] [place] [address] documented as of this encounter Visit Diagnoses Diagnosis Backache, unspecified documented in this encounter Additional Health Concerns Infection Onset Date Last Indicated Resolved Time R/O COVID-19 12/28/2019 12/28/2019 12/30/2019 5:45 AM CDT COVID-19 12/28/2019 12/28/2019 01/27/2020 1:16 AM CDT documented as of this encounter Care Teams Music Industry Intern Relationship Specialty [place] [address] [facility] [address] [place] [address] PCP - General 01/02/25 documented as of this encounter
--- OUTSIDE RECORDS SUMMARY | 2025-01-26 12:36 | XMS_ITS | Encounter Summary ---
Author Organization [facility] Address [address] [place] [address] Care Team Providers Care Harness Rigger Name Role Phone VishnuAmarjit dillon Primary Care Provide r Encounter Details Date Type Department Care Team (Late st Contact Info) Description 09/16/2008 Emergency [facility] Er, Authorized P NO ADDRESS ON FILE Doe Basurto MD [address] [facility] [place] [address] Social History Tobacco Use Types Packs/Day Years Used Date Smoking Tobacco: Never Alcohol Use Standard Drinks/Week Comments Yes 0 (1 standard drink = 0.6 oz pur e alcohol) rare Comments No Sex and Gender Information Value Date Recorded Sex Assigned at Not on file Legal Sex Female 4:29 AM SENIOR LINUX UNIX ADMINISTRATOR Gender Identity Not on file Sexual Orientation Not on file documented as of this encounter Plan of Treatment Upcoming Encounters Date Type Department Care Team (Late Contact Info) Description 04/18/2025 2:45 PM SENIOR LINUX UNIX ADMINISTRATOR Office Visit [facility] Orthopedic Surgery at the [facility] Medicine [address] [place] [address] [place] [address] [place] [address] 05/04/2025 2:45 PM SENIOR LINUX UNIX ADMINISTRATOR Office Visit [facility] Oncology and Hematology - Paras [address] [place] [address] Nelson Cazares MD [address] [facility] [address] [place] [address] 06/13/2025 10:00 AM CDT Appointment [facility] [address] [facility] [place] [address] [place] [address] [place] [address] 06/13/2025 11:05 AM CDT Office Visit [facility] Breast Surgery [place] [address] [facility] [address] [place] [address] [place] [address] [facility] [address] [place] [address] 07/13/2025 10:00 AM CDT Office Visit [facility] Endocrinology [address] [facility] [address] [place] [address] Shanice Llamas MD [address] [facility] [address] [place] [address] 12/14/2025 11:00 AM CDT Office Visit [facility] Heart and Vascular - [facility] [address] [address] [place] [address] Nma Coto MD [address] [facility] [address] [place] [address] documented as of this encounter Visit Diagnoses Not on filedocumented in this encounter Additional Health Concerns Infection Onset Date Last Indicated Resolved Time R/O COVID-19 12/28/2019 12/28/2019 12/30/2019 5:45 AM CDT COVID-19 12/28/2019 12/28/2019 01/27/2020 1:16 AM CDT documented as of this encounter Care Teams Harness Rigger Relationship Specialty [place] [address] [facility] [address] [place] [address] PCP - General 01/02/25 documented as of this encounter
--- OUTSIDE RECORDS SUMMARY | 2025-01-26 12:36 | XMS_ITS | Encounter Summary ---
Author Organization [facility] Address [address] [place] [address] Care Team Providers Care Women'S Health Care Nurse Practitioner Name Role Phone Amarjit Mares Primary Care [...] on file Legal Sex Female 4:29 AM SOFTWARE APPLICATIONS SPECIALIST Gender Identity Not on file Sexual Orientation Not on file documented as of this encounter Plan of Treatment Upcoming Encounters Date Type Department Care Team (Late st Contact Info) Description 04/18/2025 2:45 PM SOFTWARE APPLICATIONS SPECIALIST Office Visit [facility]opedic Surgery at the [facility] [address] [facility] [address] [place] [address] [place] [address] [place] [address] 05/04/2025 2:45 PM SOFTWARE APPLICATIONS SPECIALIST Office Visit [facility] Oncology and Hematology - Paras [address] [place] [address] Nelson Cazares MD [address] [facility] [address] [place] [address] 06/13/2025 10:00 AM CDT Appointment [facility] [address] [place] [address] [place] [address] [place] [address] 06/13/2025 11:05 AM CDT Office Visit [facility] Breast Surgery [place] [address] [place] [address] [place] [address] [place] [address] 07/13/2025 10:00 AM CDT Office Visit [facility] Endocrinology [address] [facility] [address] [place] [address] Shanice Llamas MD [address] [facility] [address] [place] [address] 12/14/2025 11:00 AM CDT Office Visit [facility] Heart and Vascular - [facility] [address] [place] [address] Nam Coto MD [address] [facility] [address] [place] [address] documented as of this encounter Visit Diagnoses Diagnosis Unspecified sinusitis (chronic)- Primary documented in this encounter Additional Health Concerns Infection Onset Date Last Indicated Resolved Time R/O COVID-19 12/28/2019 12/28/2019 12/30/2019 5:45 AM CDT COVID-19 12/28/2019 12/28/2019 01/27/2020 1:16 AM CDT documented as of this encounter Care Teams Women'S Health Care Nurse Practitioner Relationship Specialty [place] [address] [facility] [address] [place] [address] PCP - General 01/02/25 documented as of this encounter
--- OUTSIDE RECORDS SUMMARY | 2025-01-26 12:36 | XMS_ITS | Encounter Summary ---
Author Organization [facility] Address [address] [place] [address] Care Team Providers Care Scow Derrick Operator Name Role Phone Amarjit Mares Primary Care Provide r Encounter Details Date Type Department Care Team (Late Contact Info) Description 10/09/2008 Outpatient Historical [facility] Boy Kaufman MD [address] [place] [address] Social History Tobacco Use Types Packs/Day Years Used Date Smoking Tobacco: Never Alcohol Use Standard Drinks/Week Comments Yes 0 (1 standard drink = 0.6 oz pur e alcohol) rare Comments No Sex and Gender Information Value Date Recorded Sex Assigned at Not on file Legal Sex Female 4:29 AM GRADER GREEN MEAT Gender Identity Not on file Sexual Orientation Not on file documented as of this encounter Plan of Treatment Upcoming Encounters Date Type Department Care Team (Late Contact Info) Description 04/18/2025 2:45 PM GRADER GREEN MEAT Office Visit [facility] Orthopedic Surgery at the [facility] [address] [place] [address] [place] [address] [place] [address] 05/04/2025 2:45 PM GRADER GREEN MEAT Office Visit [facility] Oncology and Hematology - Par[place] [address] [place] [address] Nelson Cazares MD [address] [place] [address] 06/13/2025 10:00 AM CDT Appointment [facility] Jazmin Couch [address] [place] [phone] [place] [address] [address] [place] [address] 06/13/2025 11:05 AM CDT Office Visit [facility] Breast Surgery Jazminannie Couch [address] [place] [address] [place] [address] [address] [place] [address] 07/13/2025 10:00 AM CDT Office Visit [facility] Endocrinology [address] [place] [address] Shanice Llamas MD [address] [place] [address] 12/14/2025 11:00 AM CDT Office Visit [facility] Heart and Vascular - Old [facility] [address] [facility] [address] [place] [address] Nam Coto MD [address] [address] [place] [address] documented as of this encounter Visit Diagnoses Not on filedocumented in this encounter Additional Health Concerns Infection Onset Date Last Indicated Resolved Time R/O COVID-19 12/28/2019 12/28/2019 12/30/2019 5:45 AM CDT COVID-19 12/28/2019 12/28/2019 01/27/2020 1:16 AM CDT documented as of this encounter Care Teams Scow Derrick Operator Relationship Specialty [place] [address] [facility] [address] [place] [phone] PCP - General 01/02/25 documented as of this encounter
--- OUTSIDE RECORDS SUMMARY | 2025-01-26 12:36 | XMS_ITS | Encounter Summary ---
Author Organization [facility] Address [address] [place] [address] Care Team Providers Care Cloth Winder Name Role Phone Amarjit Mares Primary Care Provide r Encounter Details Date Type Department Care Team (Late Contact Info) Description 04/06/2006 Outpatient Historical [facility] Jeremías Farias MD NO ADDRESS ON FILE Social History Tobacco Use Types Packs/Day Years Used Date Smoking Tobacco: Never Assessed Comments Unknown Sex and Gender Information Value Date Recorded Sex Assigned at Not on file Legal Sex Female 4:29 AM AUTOMOTIVE ENGINEERING TECHNICIAN Gender Identity Not on file Sexual Orientation Not on file documented as of this encounter Plan of Treatment Upcoming Encounters Date Type Department Care Team (Late Contact Info) Description 04/18/2025 2:45 PM AUTOMOTIVE ENGINEERING TECHNICIAN Office Visit [facility] Orthopedic Surgery at the [facility] [address] [facility] [facility] [address] [place] [address] [place] [address] [place] [address] 05/04/2025 2:45 PM AUTOMOTIVE ENGINEERING TECHNICIAN Office Visit [facility] Oncology and Hematology - [place] [address] [place] [address] Nelson Cazares MD [address] [facility] [address] [place] [address] 06/13/2025 10:00 AM CDT Appointment [facility] Jazmin Couch [address] [facility] [phone] [place] [address] [place] [phone] 06/13/2025 11:05 AM CDT Office Visit [facility] Breast Surgery Jazmin Couch [address] [place] [phone] [place] [address] [place] [address] 07/13/2025 10:00 AM CDT Office Visit [facility] Endocrinology [address] [place] [address] Shanice Llamas MD [address] [place] [address] 12/14/2025 11:00 AM CDT Office Visit [facility] Heart and Vascular - Old [facility] [address] [place] [address] Nam Coto MD [address] [facility] [address] [place] [address] documented as of this encounter Visit Diagnoses Not on filedocumented in this encounter Additional Health Concerns Infection Onset Date Last Indicated Resolved Time R/O COVID-19 12/28/2019 12/28/2019 12/30/2019 5:45 AM CDT COVID-19 12/28/2019 12/28/2019 01/27/2020 1:16 AM CDT documented as of this encounter Care Teams Cloth Winder Relationship Specialty [place] [address] [place] [address] PCP - General 01/02/25 documented as of this encounter
[2025-01-26 16:30] LABS: Alanine Aminotransferase 15 U/L (6-35); Albumin Level 3.8 g/dL (3.5-5.1); Alkaline Phosphatase 73 U/L (38-126); Anion Gap 8 mmol/L (4-12); Aspartate Amino Transferase 53 U/L (14-36); Bilirubin,Total 0.4 mg/dL (0.2-1.3); Blood Urea Nitrogen 11 mg/dL (7-17); Calcium 9.0 mg/dL (8.4-10.2); Carbon Dioxide 28 mmol/L (22-30); Chloride 101 mmol/L (98-107); Estimated Glomerular Filt Rate > 60; Glucose 186 mg/dL (65-110); Potassium 3.9 mmol/L (3.4-5.0); Sodium 137 mmol/L (137-145); Total Protein 6.7 g/dL (6.3-8.2)
== END 2025-01-26 11:16 | disposition home or self-care (01) ==
LOC: ANHLAB 11:16
PROVIDERS: Visit Provider Internal Medicine Hematology & Oncology
DX: C50.911 Malignant neoplasm of unspecified site of right female breast (principal)
CPT/HCPCS: 36415; 80053; 85025; 86300